=== PATIENT | female | born 1935 | race Caucasian/White ===

== ENCOUNTER → 2019-04-14 15:45 | Inpatient (IN) ==
[2017-11-14 13:09] LABS: BASO# 0.02 X1000 (0.0-0.2); BASO% 0.2 % (0.0-0.8); EOS# 0.03 X1000 (0.0-0.7); EOS% 0.3 % (0.0-10.0); HEMATOCRIT 38.3 % (37.0-47.0); HEMOGLOBIN 12.6 g/dL (12.0-16.0); IMM GRAN# 0.06 X1000 (0.0-0.04); IMM GRAN% 0.7 % (0.0-0.5); LYMPH# 1.15 X1000 (1.2-3.4); LYMPH% 13.2 % (20.5-51.1); MCH 28.4 PG (27-31); MCHC 32.9 g/dL (33-37); MCV 86.5 FL (81-99); MONO# 0.78 X1000 (0.11-0.59); MONO% 8.9 % (1.7-9.3); MPV 12.7 FL (7.4-10.4); NEUT# 6.69 X1000 (1.4-6.5); NEUT% 76.7 % (42.2-75.2); PLT 250 X1000 (130-400); RBC 4.43 XMIL (4.2-5.4); RDW 13.5 % (11.5-14.5); WBC 8.73 X1000 (4.8-10.8)
[2017-11-14 13:12] LABS: ALBUMIN 3.3 g/dL (3.5-5.0); CALCIUM 8.4 mg/dL (8.8-10.2); CREATININE 0.9 mg/dL (0.5-0.9); MAGNESIUM 2.3 mg/dL (1.5-2.7); POTASSIUM 2.8 mmol/L (3.5-5.1); TOTAL BILIRUBIN 0.4 mg/dL (0.20-1.00)
[2017-11-14 13:36] LABS: FREE T4 0.96 ng/dL (0.93-1.70); TSH 2.23 uIUmL (0.27-4.20)
--- NOTE | 2017-11-14 14:02 | Diag Imaging Result Doc PS360 ---
EXAM: CT HEAD W/O CONTRAST HISTORY: psych TECHNIQUE: Images were obtained from the skull base to vertex without IV contrast as per standard protocol. COMPARISON: None. FINDINGS: There are left craniotomy changes and left occipital/temporal craniectomy/mastoidectomy. There is left temporal, occipital and left cerebellar encephalomalacia. There is no midline shift. There is diffuse deep white matter hypodensity most consistent with microvascular disease. No acute hemorrhage is demonstrated. Hypodensity left thalamus and left internal capsule bilaterals is consistent with lacunar infarcts of undetermined age. There is extensive left dural calcifications. There are vascular calcifications. There is mucous retention cyst or polyp right maxillary sinus. IMPRESSION: 1.Postsurgical changes left cranium with associated encephalomalacia as described above. 2.Deep white matter hypodensity likely secondary to microvascular disease. 3. Lacunar infarcts of undetermined age. This exam was performed using automated exposure control, adjustment of mA or kV according to patient size, and/or use of iterative reconstruction technique. Electronically signed by Ania Peraza 11/14/2017 2:00 PM
--- NOTE | 2017-11-14 14:13 | Diag Imaging Result Doc PS360 ---
EXAM: CHEST-2 VIEWS HISTORY: psych TECHNIQUE: PA and Lateral chest x-ray COMPARISON: None. FINDINGS: There is cardiomegaly. There is [employer] shunt shunt tubing traversing the anterior chest. The pulmonary vasculature is not congested. No focal infiltrate, effusion, or pneumothorax is appreciated. There are mildly increased interstitial markings at the bases which may indicate fibrosis. IMPRESSION: No acute cardiopulmonary abnormality is identified. 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 Electronically signed by Ania Peraza 11/14/2017 2:11 PM
[2017-11-14 14:30] LABS: UR AMPHETAMINES QUAL NONE DETECTED (NONE DETECT); UR BARBITUATES QUAL NONE DETECTED (NONE DETECT); UR BENZODIAZEPIN QUAL NONE DETECTED (NONE DETECT); UR CANNABINOIDS QUAL NONE DETECTED (NONE DETECT); UR COCAINE QUAL NONE DETECTED (NONE DETECT); UR MDMA QUAL NONE DETECTED (NONE DETECT); UR METHADONE QUAL NONE DETECTED (NONE DETECT); UR METHAMPHETAMINE QUAL NONE DETECTED (NONE DETECT); UR OPIATES QUAL PRESUMPTIVE POSITIVE (NONE DETECT); UR OXYCODONE QUAL NONE DETECTED (NONE DETECT); UR PCP QUAL NONE DETECTED (NONE DETECT); UR TCA QUAL NONE DETECTED (NONE DETECT)
[2017-11-14 14:43] LABS: BILIRUBIN URINE NEGATIVE (NEGATIVE); BLOOD URINE 1+ (NEGATIVE); CLARITY SLIGHTLY CLOUDY (CLEAR); COLOR YELLOW; KETONE URINE NEGATIVE (NEGATIVE); URINE CAST NONE SEEN /LPF; URINE CRYSTAL NONE SEEN /HPF; URINE SOURCE CATH; URINE YEAST NONE SEEN /HPF
[2017-11-14 14:44] LABS: LEUKOCYTES URINE 1+ (NEGATIVE); NITRITE URINE POSITIVE (NEGATIVE); PROTEIN URINE 1+(30 mg/dL) mg/dL (NEGATIVE); UROBILINOGEN URINE NORMAL
[2017-11-14 14:45] LABS: URINE BACTERIA NEGATIVE /HFP; URINE EPITHELIAL CELLS <10 /HPF (<10); URINE RBC <10 /HPF (<10)
--- NOTE | 2017-11-14 15:42 | EKG Report ---
Test Performed on : 11/14/2017 2:55:37 PM Test Reason : [facility] court medical clearance Blood Pressure : / mmHG Vent. Rate : 070 BPM Atrial Rate : 070 BPM P-R Int : 126 ms QRS Dur : 090 ms QT Int : 430 ms P-R-T Axes : 001 -38 109 degrees QTc Int : 464 ms Normal sinus rhythm. Left axis deviation Nonspecific ST and T wave abnormality Abnormal ECG No previous ECGs available Unconfirmed Result
--- NOTE | 2017-11-14 17:45 | PROVIDER DOCUMENTATION ---
This chart was entered by Emmanuel Padilla Scribe, acting as scribe for Duong Kearney MD. HPI-Psychological Disorder - General Source: EMS Unable to obtain history due to:: altered - History of Present Illness-Psych Onset/Duration: reports: unsure Timing: reports: still present, constant Severity: reports: moderate Situational problems related to:: reports: N/A Psychiatric Complaints: reports: agitated, altered mental status, anxiety, hostile, restlessness Patient arrived by:: EMS called by spouse/family Similar Symptoms Previously?: Yes Recently seen or treated by another doctor?: No <Duong Kearney - Last Filed: 11/14/17 17:45> <Melo Whitfield - Last Filed: 11/14/17 18:17> - General Chief Complaint: Psych Stated Complaint: PSYCH Time Seen by Provider: 11/14/17 12:35 Allergies/Adverse Reactions: Patient Allergies Allergy/AdvReac Type Severity Reaction Status Date / Time latex Allergy Unknown Verified 11/14/17 13:00 metformin Allergy Unknown Verified 11/14/17 13:00 Home Medications: Home Medication List Medication Instructions Recorded Confirmed Last Taken Type ATORVAstatin [Lipitor] 40 mg PO HS 11/14/17 11/14/17 Unknown History Amlodipine Besylate [Norvasc] 5 mg PO DAILY 11/14/17 11/14/17 Unknown History Aspirin 325 mg PO DAILY 11/14/17 11/14/17 Unknown History Donepezil [Aricept] 5 mg PO BID 11/14/17 11/14/17 Unknown History Hydrocodone/Acetaminophen [[place] 1 - 2 tab PO Q4H PRN PRN 11/14/17 11/14/17 Unknown History 5-325 Tablet] Insulin Aspart [Novolog] 6 units SQ TID 11/14/17 11/14/17 Unknown History Insulin Glargine [Lantus] 22 unit SQ DAILY 11/14/17 11/14/17 Unknown History Lorazepam [Ativan] 1 - 2 tab PO Q4H PRN PRN 11/14/17 11/14/17 Unknown History Losartan/Hydrochlorothiazide 1 tab PO DAILY 11/14/17 11/14/17 Unknown History [Losartan-Hctz 50-12.5 mg Tab] Metoprolol Tartrate 25 mg PO BID 11/14/17 11/14/17 Unknown History Quetiapine Fumarate 2 tab PO BID 11/14/17 11/14/17 Unknown History - History of Present Illness-Psych Nature of Presenting Problem: Patient is a 82 y/o female that presents to the emergency room via EMS for psychiatric evaluation. Patient is at a care facility in [facility]. She was sent in here after having increased in AMS, confusion, dementia, and being more combative with staff. Her PRN medications are no longer working and family wanted her to be evaluated by psych. (Emmanuel Padilla) Patient is a 82 y/o female that presents to the emergency room via EMS for psychiatric evaluation. Patient is at a care facility in [facility]. She was sent in here after having increased in AMS, confusion, dementia, and being more combative with staff. Her PRN medications are no longer working and family wanted her to be evaluated by psych. (Duong Kearney) Review of Systems - Adult - REVIEW OF SYSTEMS - ADULT ROS:: unobtainable per condition Constitutional: reports: no symptoms reported Eyes: reports: no symptoms reported Ears, Nose, Mouth & Throat: reports: no symptoms reported Cardiovascular: reports: no symptoms reported Respiratory: reports: no symptoms reported Gastrointestinal: reports: no symptoms reported Genitourinary: reports: no symptoms reported Musculoskeletal: reports: no symptoms reported Integumentary: reports: no symptoms reported Neurological: reports: no symptoms reported Psychiatric: reports: see HPI Endocrine: reports: no symptoms reported Hematologic/Lymphatic: reports: no symptoms reported Allergic/Immunologic: reports: no symptoms reported All Other Systems: Reviewed and Negative <Duong Kearney - Last Filed: 11/14/17 17:45> Past History - Adult - PAST MEDICAL HISTORY-ADULT Review of Records: reports: Old Records Reviewed, Nursing Assessment Review, Medications Reviewed Cardiovascular: reports: HTN, hyperlipidemia Genitourinary: reports: kidney disease Neurological: reports: CVA, dementia Endocrine/Immune: reports: Diabetes - PRIOR SURGERIES/PROCEDURES Surgical/Procedure History: reports: reviewed, not pertinent - IMMUNIZATION STATUS Childhood Immunizations: See Nurse Assessment Flu Vaccine: See Nurse Assessment - FAMILY HISTORY Family History: reviewed, not pertinent - SOCIAL HISTORY Smoking: non-smoker Living Situation: care facility <Duong Kearney - Last Filed: 11/14/17 17:45> Physical Exam-Psych Focus - Physical Exam-Psych Initial Vital Signs Reviewed: Yes Appearance: anxious, combative, impaired insight Neurological: agitated, anxious, disoriented x 3 Behavior/Eye Contact/Speech: belligerent, uncooperative Thoughts/Hallucinations: incoherent. negative: flight of ideas HENMT: normocephalic/atraumatic, moist mucous membranes, normal ENT inspection Neck: full range of motion, normal inspection Respiratory: lungs clear, normal breath sounds, no respiratory distress, no accessory muscle use Cardiovascular: normal peripheral pulses, regular rate, rhythm Abdominal Exam: normal bowel sounds, non tender, soft Extremity: no pedal edema, normal capillary refill Integumentary: normal color, warm/dry <Duong Kearney - Last Filed: 11/14/17 17:45> Progress - PLAN OF CARE/RESULTS Result Diagrams: 11/14/17 12:54 11/14/17 12:54 - EKG 1 Time of EKG reading by physician:: 14:55 EKG Read and Signed by:: Duong Kearney EKG Interpretation (*Must complete 3 of following elements*): Abnormal Rate: 70 Rhythm: NSR [place]: left QRS: normal GA Interval: normal ST Wave: non-specific ST changes - XRAY 1 XRAY Study: Chest Impression: Abnormal (No acute cardiopulmonary abnormality is identified. 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 2.Deep white matter hypodensity likely secondary to microvascular disease. 3. Lacunar infarcts of undetermined age.) <Duong Kearney - Last Filed: 11/14/17 17:45> - PLAN OF CARE/RESULTS Result Diagrams: 11/14/17 12:54 11/14/17 12:54 - CONSULTS/PCP/HOSPITALIST Notification #1 *Consult/PCP/Hospitalist*: Dr. Daley hospitalist Time Discussed: 18:10 Consult Disposition: Admit <Melo Whitfield - Last Filed: 11/14/17 18:17> - PLAN OF CARE/RESULTS Progress/Plan/Lab Results: Vital Signs - 8 hr 11/14/17 12:36 11/14/17 18:09 Pulse Rate 66 71 Respiratory Rate 20 Blood Pressure 142/90 163/73 O2 Sat by Pulse Oximetry 97 96 Laboratory Results - last 24 hr 11/14/17 11/14/17 11/14/17 12:54 12:54 12:54 WBC RBC Hgb Hct MCV MCH MCHC RDW Std Deviation Plt Count MPV Immature Gran % (Auto) Neut % (Auto) Lymph % (Auto) [place] % (Auto) Eos % (Auto) Baso % (Auto) Immature Gran # (Auto) Neut # (Auto) Lymph # (Auto) [place] # (Auto) Eos # (Auto) Baso # (Auto) Sodium 140 Potassium 2.8 L Chloride 99 Carbon Dioxide 31 Anion Gap 10 BUN 23 H Creatinine 0.9 Estimated GFR/1.73 m2 60 BUN/Creatinine Ratio 26 Glucose 247 H Calculated Osmolality 291 Calcium 8.4 L Magnesium 2.3 Total Bilirubin 0.40 AST 200 H ALT 203 H Alkaline Phosphatase 171 H Total Protein 6.0 L Albumin 3.3 L Globulin 3.0 Albumin/Globulin Ratio 1.0 Vitamin B12 > 2000 H Folate 13.8 TSH 2.23 Free T4 0.96 Urine Source Urine Color Urine Clarity Urine pH Ur Specific [place] Urine Protein Urine Ketones Urine Blood Urine Nitrite Urine Bilirubin Urine Urobilinogen Urine Microscopic RBC Urine WBC Urine Microscopic WBC Ur Epithelial Cells Urine Crystals Urine Bacteria Urine Casts Urine Yeast Urine Glucose Urine Opiates Screen Ur Oxycodone Screen Urine Methadone Screen Ur Barbituates Screen Ur Tricyclics Screen Ur Phencyclidine Scrn Ur Amphetamines Screen U Methamphetamines Scrn Urine MDMA Screen U Benzodiazepines Scrn Urine Cocaine Screen U Cannabinoids Screen RPR 11/14/17 11/14/17 11/14/17 12:54 12:54 13:50 WBC 8.73 RBC 4.43 Hgb 12.6 Hct 38.3 MCV 86.5 MCH 28.4 MCHC 32.9 L RDW Std Deviation 13.5 Plt Count 250 MPV 12.7 H Immature Gran % (Auto) 0.7 H Neut % (Auto) 76.7 H Lymph % (Auto) 13.2 L [place] % (Auto) 8.9 Eos % (Auto) 0.3 Baso % (Auto) 0.2 Immature Gran # (Auto) 0.06 H Neut # (Auto) 6.69 H Lymph # (Auto) 1.15 L [place] # (Auto) 0.78 H Eos # (Auto) 0.03 Baso # (Auto) 0.02 Sodium Potassium Chloride Carbon Dioxide Anion Gap BUN Creatinine Estimated GFR/1.73 m2 BUN/Creatinine Ratio Glucose Calculated Osmolality Calcium Magnesium Total Bilirubin AST ALT Alkaline Phosphatase Total Protein Albumin Globulin Albumin/Globulin Ratio Vitamin B12 Folate TSH Free T4 Urine Source CATH Urine Color YELLOW Urine Clarity SLIGHTLY CLOUDY A Urine pH 7.0 Ur Specific [place] 1.010 Urine Protein 1+(30 mg/dL) A Urine Ketones NEGATIVE Urine Blood 1+ A Urine Nitrite POSITIVE A Urine Bilirubin NEGATIVE Urine Urobilinogen NORMAL Urine Microscopic RBC <10 Urine WBC 1+ A Urine Microscopic WBC 10-20 A Ur Epithelial Cells <10 Urine Crystals NONE SEEN Urine Bacteria NEGATIVE Urine Casts NONE SEEN Urine Yeast NONE SEEN Urine Glucose 2+(250 mg/dL) A Urine Opiates Screen Ur Oxycodone Screen Urine Methadone Screen Ur Barbituates Screen Ur Tricyclics Screen Ur Phencyclidine Scrn Ur Amphetamines Screen U Methamphetamines Scrn Urine MDMA Screen U Benzodiazepines Scrn Urine Cocaine Screen U Cannabinoids Screen RPR NON-REACTIVE 11/14/17 14:20 WBC RBC Hgb Hct MCV MCH MCHC RDW Std Deviation Plt Count MPV Immature Gran % (Auto) Neut % (Auto) Lymph % (Auto) [place] % (Auto) Eos % (Auto) Baso % (Auto) Immature Gran # (Auto) Neut # (Auto) Lymph # (Auto) [place] # (Auto) Eos # (Auto) Baso # (Auto) Sodium Potassium Chloride Carbon Dioxide Anion Gap BUN Creatinine Estimated GFR/1.73 m2 BUN/Creatinine Ratio Glucose Calculated Osmolality Calcium Magnesium Total Bilirubin AST ALT Alkaline Phosphatase Total Protein Albumin Globulin Albumin/Globulin Ratio Vitamin B12 Folate TSH Free T4 Urine Source Urine Color Urine Clarity Urine pH Ur Specific [place] Urine Protein Urine Ketones Urine Blood Urine Nitrite Urine Bilirubin Urine Urobilinogen Urine Microscopic RBC Urine WBC Urine Microscopic WBC Ur Epithelial Cells Urine Crystals Urine Bacteria Urine Casts Urine Yeast Urine Glucose Urine Opiates Screen PRESUMPTIVE POSITIVE A Ur Oxycodone Screen NONE DETECTED Urine Methadone Screen NONE DETECTED Ur Barbituates Screen NONE DETECTED Ur Tricyclics Screen NONE DETECTED Ur Phencyclidine Scrn NONE DETECTED Ur Amphetamines Screen NONE DETECTED U Methamphetamines Scrn NONE DETECTED Urine MDMA Screen NONE DETECTED U Benzodiazepines Scrn NONE DETECTED Urine Cocaine Screen NONE DETECTED U Cannabinoids Screen NONE DETECTED RPR Orders Category Date Time Status Finger Splint DIRECTED Care 11/14/17 16:55 Inactive Finger Stick Blood Sugar (ED) DIRECTED Care 11/14/17 16:56 Active Straight Catheterization ORDERED Care 11/14/17 13:07 Active CHEST-2 VIEWS [RAD] Stat Exams 11/14/17 12:[address] HEAD W/O CONTRAST [CT] Stat Exams 11/14/17 12:43 Completed US ABDOMEN-COMPLETE [US] Stat Exams 11/14/17 17:25 Ordered CBC WITH ELECTRONIC DIFF [HEME] Stat Lab 11/14/17 12:54 Completed COMPREHENSIVE METABOLIC PANEL [CHEM] Stat Lab 11/14/17 12:54 Completed FOLATE Stat Lab 11/14/17 12:54 Completed FREE T4 Stat Lab 11/14/17 12:54 Completed MAGNESIUM [CHEM] Stat Lab 11/14/17 12:54 Completed RPR [SERO] Stat Lab 11/14/17 12:54 Completed TSH Stat Lab 11/14/17 12:[address] W/POSS RFLX CULT [URINALYSIS] Stat Lab 11/14/17 13:50 Completed URINE CULTURE [RM] Routine Lab 11/14/17 14:45 Received [address] DRUG SCREEN [address] Stat Lab 11/14/17 14:20 Completed VITAMIN B12 Stat Lab 11/14/17 12:54 Completed CefTRIAXONE [Rocephin] 1 gm Med 11/14/17 18:07 Active 0.9% Sodium Chloride Inj [Ns] 50 ml IV NOW Lorazepam [Ativan] Med 11/14/17 17:36 Discontinued 2 mg .ROUTE .STK-MED ONE Lorazepam [Ativan] Med 11/14/17 17:38 Discontinued 2 mg IM NOW ONE Potassium Chloride E.r. [Klor-Con] Med 11/14/17 15:36 Discontinued 40 meq PO NOW ONE Potassium Chloride E.r. [Klor-Con] Med 11/14/17 22:00 Once 40 meq PO NOW ONE Sulfamethoxazole/Tmp D.s. [Septra Ds] Med 11/14/17 15:39 Discontinued 1 each PO NOW ONE EKG [EKG] Stat Ther 11/14/17 12:39 Draft patient evaluated by psych who decline her for psych admission (Melo Whitfield) Departure <Duong Kearney - Last Filed: 11/14/17 17:45> - Departure Date of Disposition Decision: 11/14/17 Time of Disposition Decision: 18:10 Certified Medical Emergency: Emergent - Critical Care Note This patient required my direct & personal management of CC.: No <Melo Whitfield - Last Filed: 11/14/17 18:17> - Departure DIAGNOSIS: Agitation, Hypokalemia Altered mental status Qualifiers: Altered mental status type: unspecified Qualified Code(s): R41.82 - Altered mental status, unspecified UTI (urinary tract infection) Qualifiers: Urinary tract infection type: site unspecified Hematuria presence: without hematuria Qualified Code(s): N39.0 - Urinary tract infection, site not specified Disposition: ADMITTED INPATIENT 09 Condition: Stable Referrals and Follow-Ups: None,PCP [Primary Care Provider] - Attestation - Physician/ AGUILAR Attestation Patient care was provided by Advanced Practice Provider:: No The physician spent face to face time with patient:: Yes Advanced Practice Provider documentation review:: Supervising physician onsite and consulted in the evaluation and care of this patient. The physician did have a face to face encounter with the patient. <Duong Kearney - Last Filed: 11/14/17 17:45> This chart was documented by the indicated scribe, (Emmanuel Padilla, Scribe) and accurately reflects the services I performed and decisions made by me, Duong Kearney MD, as attested by the provider's signature.
[2017-11-14] MEDS: LOVENOX SUBQ SCH (18:59)
--- NOTE | 2017-11-14 19:03 | Diag Imaging Result Doc PS360 ---
EXAM: US ABDOMEN-COMPLETE 11/14/2017 HISTORY: elevated lfts TECHNIQUE: Abdominal ultrasound COMMENT: There is antegrade flow in the portal vein. The common bile duct measures slightly over 7 mm. The gallbladder is not demonstrated. There is no sonographic Vazquez sign. The spleen is not enlarged. The liver is grossly normal in appearance although there is very poor detail particularly in the deeper portions. The visualized portions of aorta and inferior vena cava are within normal limits. There is a 9 mm stone in the lower pole of the left collecting system. There is a 1.9 cm cyst in the upper pole of the left kidney. The right kidney is somewhat atrophic measuring only 7.9 x 4 x 3.7 cm. There are no previous studies. The pancreas is obscured. IMPRESSION: Left nephrolithiasis. Borderline dilatation the common bile duct. If the gallbladder is surgically absent, this is probably physiologic. Electronically signed by Jona Woo 11/14/2017 7:00 PM
--- NOTE | 2017-11-14 19:57 | HISTORY AND PHYSICAL ---
CHIEF COMPLAINT: Altered mental status. HISTORY OF PRESENT ILLNESS: The patient is an 82-year-old female, who was brought to the emergency department via the ambulance. The family did not come with her. They reported that she has been agitated. She has been anxious, hostile, restless. They deny any knowledge of fevers. ALLERGIES: Latex and metformin. MEDICATIONS: 1. Lipitor 40. 2. Norvasc 5. 3. Aspirin. 4. Aricept. 5. Homeland p.r.n. 6. NovoLog 6 t.i.d. 7. Lantus 22. 8. Ativan p.r.n. 9. Hyzaar 50/12.5. 10. Toprol 25. 11. Seroquel 2 twice a day. REVIEW OF SYSTEMS: Essentially unobtainable from Ms. Bajwa given her chronic dementia and her acute altered mental status. She apparently was brought to the hospital to be evaluated for her psychiatric change. She was in a care facility in [facility], but is no longer able to stay there due to increasing altered mental status, confusion and dementia. She has become more combative with the staff. She has been kicking and swinging at them. She has spit on them. They note her medications are no longer working. No knowledge of GI or issues. No knowledge of chest pain. No subjective knowledge of shortness of breath. PAST MEDICAL HISTORY: 1. Hypertension. 2. Hyperlipidemia. 3. Chronic kidney disease. 4. History of CVA. 5. Dementia. 6. Diabetes. FAMILY HISTORY: Noncontributory to current illness. SOCIAL HISTORY: She lives in a long-term care facility. Does not smoke or drink. PHYSICAL EXAMINATION: VITAL SIGNS: Reviewed. She is afebrile, pulse 66, respiratory rate 20, blood pressure 142/90, saturation 97% on room air. GENERAL: Patient is awake and alert. She is currently in no respiratory distress. Unfortunately, she is also combative. NECK: Supple. CARDIOVASCULAR: Regular rate. CHEST: Clear. No crackles. ABDOMEN: Soft. EXTREMITIES: Moves all 4 extremities. LABORATORY DATA: CBC normal. Potassium 2.8. Glucose 247. ASSESSMENT: 1. Urinary tract infection. 2. Hypokalemia. 3. Diabetes with hyperglycemia. 4. Acute delirium, likely metabolic encephalopathy caused by urinary tract infection. 5. Acute hepatitis. AST and ALT both elevated. PLAN: Will admit patient to the hospital. Will not start an IV currently as she does not appear to be volume-depleted and I certainly do not expect that she will keep an IV in place. We will attempt to use IM Rocephin and oral medications as much as possible. cc: Ricky Daley MD
[2017-11-14] MEDS: SEROQUEL PO SCH (23:18)
[2017-11-14] MEDS: ARICEPT PO SCH (23:18)
[2017-11-15 07:13] LABS: HEMATOCRIT 41.5 % (37.0-47.0); HEMOGLOBIN 13.6 g/dL (12.0-16.0); MCH 28.3 PG (27-31); MCHC 32.8 g/dL (33-37); MCV 86.5 FL (81-99); MPV 12.2 FL (7.4-10.4); RBC 4.8 XMIL (4.2-5.4); RDW 13.9 % (11.5-14.5); WBC 6.58 X1000 (4.8-10.8)
[2017-11-15 08:01] LABS: ALBUMIN 3.3 g/dL (3.5-5.0); CALCIUM 8.5 mg/dL (8.8-10.2); CREATININE 0.9 mg/dL (0.5-0.9); MAGNESIUM 2.3 mg/dL (1.5-2.7); POTASSIUM 3.4 mmol/L (3.5-5.1); TOTAL BILIRUBIN 0.4 mg/dL (0.20-1.00); TOTAL PROTEIN 6.2 g/dL (6.3-8.3)
[2017-11-15] MEDS: ARICEPT PO SCH ×2 (09:30→21:56)
[2017-11-15] MEDS: ATIVAN PO PRN (09:30)
[2017-11-15] MEDS: SEROQUEL PO SCH ×2 (09:31→21:56)
[2017-11-15] MEDS: HUMALOG DOSE (PARKWAY) SUBQ SCH ×3 (12:31→21:56)
[2017-11-15] MEDS: LOVENOX SUBQ SCH (17:31)
--- NOTE | 2017-11-15 19:37 | PROGRESS NOTE ---
DATE: 11/15/2017 SUBJECTIVE: Patient without any new complaints today. She is much more alert and awake. PHYSICAL: Temperature 97.8 degrees, pulse 61, respiratory 20, BP 147/74.General: Patient is awake, alert. Currently, she is in no respiratory distress. She is confused, disoriented but very calm and pleasant. HEENT: Normocephalic. Neck: Supple. No JVD. CARDIOVASCULAR: Regular rate. Chest: Clear. Abdomen: Soft, nondistended. Extremities: Moves all extremities. ASSESSMENT: 1. Urinary tract infection. Continue Rocephin. We will continue to use IM as she is pulling her IVs out almost instantaneously. 2. Hypokalemia. 3. Diabetes with hyperglycemia. 4. Acute delirium, likely metabolic encephalopathy secondary to urinary tract infection. It is improving currently. 5. Acute hepatitis, also improving. PLAN: As noted, continue Rocephin. Continue to try to encourage oral intake. Further orders as needed. cc: Ricky Daley MD
[2017-11-15] MEDS: HALDOL IM PRN (22:41)
[2017-11-16] MEDS: ATIVAN PO PRN ×2 (05:48→21:14)
[2017-11-16] MEDS: HUMALOG DOSE (PARKWAY) SUBQ SCH ×4 (06:36→21:14)
[2017-11-16 07:09] LABS: MCH 28.7 PG (27-31); MCHC 32.5 g/dL (33-37); MCV 88.3 FL (81-99); MPV 12.2 FL (7.4-10.4); RBC 4.53 XMIL (4.2-5.4); RDW 14.2 % (11.5-14.5); WBC 7.74 X1000 (4.8-10.8)
[2017-11-16 07:33] LABS: AGAP 11; ALBUMIN 2.9 g/dL (3.5-5.0); ALKALINE PHOSPHATASE 138 U/L (32-104); BUN 13 mg/dL (8-22); CALCIUM 8.4 mg/dL (8.8-10.2); CHLORIDE 106 mmol/L (98-107); COSMO 283; CREATININE 0.8 mg/dL (0.5-0.9); ESTIMATED GFR > 60; GLUCOSE 157 mg/dL (70-104); GOT 36 U/L (10-30); GPT 93 U/L (10-36); POTASSIUM 4.6 mmol/L (3.5-5.1); SODIUM 140 mmol/L (136-145); TCO2 23 mmol/L (25-35); TOTAL PROTEIN 5.8 g/dL (6.3-8.3)
[2017-11-16] MEDS: SEROQUEL PO SCH ×2 (09:29→21:14)
[2017-11-16] MEDS: ARICEPT PO SCH ×2 (09:29→21:13)
[2017-11-16] MEDS: LOVENOX SUBQ SCH (17:26)
--- NOTE | 2017-11-16 19:08 | PROGRESS NOTE ---
DATE: 11/16/2017 SUBJECTIVE: The patient is a little more alert today. She denies any complaints. She is still confused. PHYSICAL: Temperature 97.8 degrees, pulse 61, respiratory 22, BP 147/74.General: Patient is awake and alert. She is confused although she is much more alert today than she was yesterday. She is in no current distress. HEENT: Normocephalic. Neck: Supple. No JVD. CV: Regular rate. Chest: Clear. Abdomen: Soft. Extremities: She is noted to move all extremities. ASSESSMENT: 1. Urinary tract infection. Continue Rocephin IM. 2. Metabolic encephalopathy secondary to urinary tract infection, improving. 3. Acute hepatitis. Her AST, ALT and alkaline phosphatase all are improving. Currently AST is down from 236 and ALT is down from 203 to 93. 4. Hypokalemia resolved. 5. Diabetes. 6. Chronic dementia. PLAN: Continue to push fluids. Continue Rocephin IM. Continue to follow. Hopefully she can improve and likely will need to be transitioned to rehab. cc: Ricky Daley MD
[2017-11-17] MEDS: HUMALOG DOSE (PARKWAY) SUBQ SCH ×4 (06:21→21:12)
[2017-11-17] MEDS: ARICEPT PO SCH ×2 (09:19→21:03)
[2017-11-17] MEDS: SEROQUEL PO SCH ×2 (09:19→21:12)
[2017-11-17] MEDS: ATIVAN PO PRN ×2 (10:34→21:12)
[2017-11-17] MEDS: LOVENOX SUBQ SCH (18:02)
--- NOTE | 2017-11-17 19:34 | PROGRESS NOTE ---
DATE: 11/17/2017 SUBJECTIVE: The patient has no complaints. There is no family present. OBJECTIVE: Vital Signs: Temperature 97.6 degrees, pulse 72, respiratory rate 18, blood pressure 150/69. General: Patient is awake. She is much more alert. She is more pleasant. She is not as combative as she was previously. HEENT: Normocephalic. Neck: Supple. CARDIOVASCULAR: Regular rate. Chest: Clear. Abdomen: Soft. Extremities: Moves all extremities. She is still currently in restraints due to the probability that she will harm herself or that she will harm one of the staff. She also is still climbing out of bed and certainly will would be expected to fall if she is able to get out of bed. ASSESSMENT: 1. Urinary tract infection. Culture still pending. 2. Hypokalemia. 3. Diabetes. 4. Acute delirium. 5. Acute hepatitis, resolved. PLAN: Overall, the patient is improving. She certainly may be to her baseline mental status at this point. We will continue antibiotics today. Hopefully transition to rehab in the next day or two. cc: Ricky Daley MD
[2017-11-18] MEDS: HUMALOG DOSE (PARKWAY) SUBQ SCH ×4 (06:42→21:48)
[2017-11-18] MEDS: SEROQUEL PO SCH ×2 (09:14→20:33)
[2017-11-18] MEDS: ARICEPT PO SCH ×2 (09:14→20:33)
[2017-11-18] MEDS: ATIVAN PO PRN (11:28)
[2017-11-18] MEDS: HALDOL IM PRN (14:57)
[2017-11-18] MEDS: LOVENOX SUBQ SCH (18:11)
--- NOTE | 2017-11-18 20:59 | PROGRESS NOTE ---
DATE: 11/18/2017 SUBJECTIVE: Patient is a little more awake and alert this morning. Still confused and disoriented. Does not answer questions nor follow commands. PHYSICAL: Temperature 98.7, pulse 79, respiratory rate 22, BP 140/69.General: Patient is awake and alert. She does not follow commands. She is more calm. HEENT: Normocephalic, atraumatic. Neck: Supple. CARDIOVASCULAR: Regular rate. Chest: Clear. Abdomen: Soft, nondistended. Extremities: Moves all extremities. ASSESSMENT: 1. Urinary tract infection. Continue Rocephin. 2. Acute hepatitis, improving. 3. Acute delirium secondary to urinary tract infection. Appears to be improved. 4. Chronic dementia. 5. Diabetes. 6. Hypokalemia, resolved. PLAN: We will continue patient in the hospital. Begin looking for discharge planning. cc: Ricky Daley MD
[2017-11-19] MEDS: ASPIRIN PO SCH (08:23)
[2017-11-19] MEDS: ATIVAN PO PRN (08:23)
[2017-11-19] MEDS: SEROQUEL PO SCH ×2 (08:23→21:44)
[2017-11-19] MEDS: ARICEPT PO SCH ×2 (08:23→21:44)
[2017-11-19] MEDS: COZAAR PO SCH (08:24)
[2017-11-19] MEDS: BASAGLAR SUBQ SCH (09:42)
[2017-11-19] MEDS: HUMALOG DOSE (PARKWAY) SUBQ SCH ×4 (11:05→23:18)
[2017-11-19] MEDS: HALDOL IM PRN (11:30)
[2017-11-19 12:26] LABS: BASO# 0.01 X1000 (0.0-0.2); BASO% 0.1 % (0.0-0.8); EOS# 0.05 X1000 (0.0-0.7); EOS% 0.6 % (0.0-10.0); HEMATOCRIT 38.2 % (37.0-47.0); HEMOGLOBIN 12.5 g/dL (12.0-16.0); IMM GRAN# 0.03 X1000 (0.0-0.04); IMM GRAN% 0.4 % (0.0-0.5); LYMPH# 1.67 X1000 (1.2-3.4); LYMPH% 21.6 % (20.5-51.1); MCH 28.6 PG (27-31); MCHC 32.7 g/dL (33-37); MCV 87.4 FL (81-99); MONO# 0.48 X1000 (0.11-0.59); MONO% 6.2 % (1.7-9.3); MPV 11.7 FL (7.4-10.4); NEUT% 71.1 % (42.2-75.2); PLT 252 X1000 (130-400); RBC 4.37 XMIL (4.2-5.4); RDW 13.9 % (11.5-14.5); WBC 7.74 X1000 (4.8-10.8)
[2017-11-19 12:39] LABS: AGAP 12; BUN 12 mg/dL (8-22); CALCIUM 8.9 mg/dL (8.8-10.2); CHLORIDE 101 mmol/L (98-107); COSMO 286; CREATININE 0.8 mg/dL (0.5-0.9); ESTIMATED GFR > 60; GLUCOSE 222 mg/dL (70-104); POTASSIUM 3.9 mmol/L (3.5-5.1); SODIUM 140 mmol/L (136-145); TCO2 26 mmol/L (25-35)
[2017-11-19] MEDS: CALMOSEPTINE OINTMENT TOP PRN (16:36)
[2017-11-19] MEDS: LOVENOX SUBQ SCH (18:52)
--- NOTE | 2017-11-19 20:17 | PROGRESS NOTE ---
DATE: 11/19/2017 SUBJECTIVE: Patient is much more calm today. OBJECTIVE: Vital Signs: Temperature 98.7, pulse 79, respiratory 20, BP 140/69. General: Patient is awake, alert, currently in no distress. HEENT: Normocephalic. Neck: Supple. Cardiovascular: Regular rate. Chest: Clear. Abdomen: Soft. Extremities: Moves all extremities. Neurologic: Unable to assess due to patient's dementia. ASSESSMENT: 1. Hypertension. 2. Urinary tract infection. Will continue Rocephin today and will stop. 3. Hypokalemia, resolved. We will recheck labs in the a.m. 4. Acute hepatitis. Continues to improve. 5. Chronic dementia. PLAN: Overall, patient's mental status has improved. She is much more calm. We will continue to follow. Hopefully she can be transferred to rehab soon. Unfortunately, we are awaiting on insurance approval. cc: Ricky Daley MD
[2017-11-19] MEDS: LIPITOR PO SCH (21:44)
[2017-11-20] MEDS: ATIVAN PO PRN ×2 (00:45→11:21)
[2017-11-20] MEDS: HUMALOG DOSE (PARKWAY) SUBQ SCH ×4 (06:23→23:26)
[2017-11-20] MEDS: ARICEPT PO SCH ×2 (08:57→23:27)
[2017-11-20] MEDS: BASAGLAR SUBQ SCH (08:57)
[2017-11-20] MEDS: SEROQUEL PO SCH ×2 (08:57→23:27)
[2017-11-20] MEDS: COZAAR PO SCH (08:57)
[2017-11-20] MEDS: ASPIRIN PO SCH (08:57)
[2017-11-20] MEDS: HALDOL IM PRN (13:56)
[2017-11-20] MEDS: LOVENOX SUBQ SCH (19:23)
--- NOTE | 2017-11-20 20:38 | PROGRESS NOTE ---
DATE: 11/20/2017 SUBJECTIVE: The patient has no new complaints. She is calm. OBJECTIVE: Vital Signs: Temperature 97.7 degrees, pulse 63, respiratory rate 20, BP 139/70. General: The patient is awake. She is in no respiratory distress. HEENT: Normocephalic. Neck: Supple. CARDIOVASCULAR: Regular rate. No murmurs. Chest: Clear, nonlabored. Abdomen: Soft, nondistended. Extremities: Moves all extremities. ASSESSMENT: 1. Hypokalemia, resolved. 2. Acute delirium in the setting of chronic dementia, appears improved. 3. Hypertension. 4. Hepatitis, improving. PLAN: Will continue to follow. Recheck labs in the a.m. Will attempt to stop all of her restraints if possible and will follow. cc: Ricky Daley MD
[2017-11-20] MEDS: LIPITOR PO SCH (23:26)
[2017-11-21] MEDS: HUMALOG DOSE (PARKWAY) SUBQ SCH ×3 (07:01→17:57)
[2017-11-21] MEDS: ARICEPT PO SCH ×2 (10:29→22:12)
[2017-11-21] MEDS: BASAGLAR SUBQ SCH (10:29)
[2017-11-21] MEDS: ASPIRIN PO SCH (10:29)
[2017-11-21] MEDS: SEROQUEL PO SCH ×2 (10:30→22:12)
[2017-11-21] MEDS: COZAAR PO SCH (10:30)
[2017-11-21] MEDS: ATIVAN PO PRN (13:30)
[2017-11-21] MEDS: LOVENOX SUBQ SCH (18:03)
--- NOTE | 2017-11-21 18:34 | PROGRESS NOTE ---
DATE: 11/21/2017 SUBJECTIVE: The patient has no complaints. She is pleasant. She spoke to me this morning. OBJECTIVE: Vital Signs: Temperature 98.4, pulse 71, respiratory rate 18, blood pressure 138/68. General: Patient is awake, alert. She is currently in no distress. She is very pleasant. HEENT: Normocephalic. Neck: Supple. CARDIOVASCULAR: Regular rate. Chest: Clear. Abdomen: Soft. Neurologic: No focal changes from previous exams. The patient is awake, alert, but she is disoriented to person, place, and time. She does answer questions, but not always the appropriate question. ASSESSMENT: 1. Urinary tract infection, resolved. 2. Hypokalemia, resolved. 3. Acute hepatitis, resolved. 4. Volume depletion, resolved. 5. Diabetes. 6. Chronic dementia. 7. Metabolic encephalopathy secondary to urinary tract infection and volume depletion, resolved. PLAN: The patient certainly needs transition to rehab although her insurance currently is refusing. She is incapable of caring for herself at home. We will continue to remove restraints as much as possible. However, she gets confused and attempts to get out of bed. She currently is too weak to get out of bed on her own. cc: Ricky Daley MD
[2017-11-21] MEDS: LIPITOR PO SCH (22:12)
[2017-11-22] MEDS: HUMALOG DOSE (PARKWAY) SUBQ SCH ×4 (00:18→16:45)
[2017-11-22 05:35] LABS: HEMATOCRIT 35.5 % (37.0-47.0); HEMOGLOBIN 11.3 g/dL (12.0-16.0); MCH 28.4 PG (27-31); MCHC 31.8 g/dL (33-37); MCV 89.2 FL (81-99); MPV 11.8 FL (7.4-10.4); RBC 3.98 XMIL (4.2-5.4); RDW 14.2 % (11.5-14.5); WBC 11.74 X1000 (4.8-10.8)
[2017-11-22 05:54] LABS: AGAP 7; ALBUMIN 2.8 g/dL (3.5-5.0); ALKALINE PHOSPHATASE 98 U/L (32-104); BUN 14 mg/dL (8-22); CALCIUM 8.4 mg/dL (8.8-10.2); CHLORIDE 106 mmol/L (98-107); COSMO 282; CREATININE 0.7 mg/dL (0.5-0.9); ESTIMATED GFR > 60; GLUCOSE 63 mg/dL (70-104); GOT 23 U/L (10-30); GPT 37 U/L (10-36); POTASSIUM 3.8 mmol/L (3.5-5.1); SODIUM 142 mmol/L (136-145); TCO2 29 mmol/L (25-35); TOTAL PROTEIN 5.4 g/dL (6.3-8.3)
[2017-11-22] MEDS: COZAAR PO SCH (10:16)
[2017-11-22] MEDS: ASPIRIN PO SCH (10:16)
[2017-11-22] MEDS: SEROQUEL PO SCH ×2 (10:16→21:38)
[2017-11-22] MEDS: ARICEPT PO SCH ×2 (10:16→21:38)
[2017-11-22] MEDS: BASAGLAR SUBQ SCH (10:16)
--- NOTE | 2017-11-22 16:44 | PROGRESS NOTE ---
DATE: 11/22/2017 SUBJECTIVE: Patient is pleasant at the moment however she is certainly a fall risk, does not understand that she needs to stay in bed until she gets help getting up. Therefore she is still requiring soft restraints at times to prevent personal injury. PHYSICAL: Temperature 97.7 degrees, pulse 76, respiratory 16, BP 132/54.General: Patient is awake, she is very pleasant this morning. HEENT: Normocephalic. Neck: Supple. CV: Regular rate. Chest: Clear. Abdomen: Soft. Extremities: Moves all extremities. Neuro: Unable to assess due to her dementia. ASSESSMENT: 1. Hypertension, restart Cozaar. 2. Diabetes with hyperglycemia. 3. Acute hepatitis resolved. AST, ALT and alkaline phosphatase all back to normal. 4. Hypokalemia resolved. 5. Urinary tract infection resolved. 6. Acute delirium resolved. Patient is much more alert, oriented although she still easily confused, easily disoriented, still attempts to climb out of bed and fall. PLAN: We will continue to adjust her psychotropic medications to see if we can assist. Unfortunately, she will still need soft restraints at times to prevent personal injury. Continue to wait on her insurance to allow her to go to rehab. cc: Ricky Daley MD
[2017-11-22] MEDS: LOVENOX SUBQ SCH (17:15)
[2017-11-22] MEDS: LIPITOR PO SCH (21:38)
[2017-11-22] MEDS: ATIVAN PO PRN (23:03)
[2017-11-23] MEDS: HUMALOG DOSE (PARKWAY) SUBQ SCH ×5 (04:49→21:35)
[2017-11-23] MEDS: SEROQUEL PO SCH ×3 (10:34→21:34)
[2017-11-23] MEDS: ASPIRIN PO SCH ×2 (10:34→10:46)
[2017-11-23] MEDS: COZAAR PO SCH ×2 (10:34→10:47)
[2017-11-23] MEDS: BASAGLAR SUBQ SCH (10:34)
[2017-11-23] MEDS: ARICEPT PO SCH ×2 (10:45→21:34)
--- NOTE | 2017-11-23 17:11 | PROGRESS NOTE ---
DATE: 11/23/2017 SUBJECTIVE: The patient is very pleasant today. She had no complaints. PHYSICAL EXAM: Temp 97.6, pulse 72, respiratory rate 18, BP 172/72.General: Patient is awake. She is alert. She is pleasant. She is lying in the bed. She still has soft restraints due to the propensity for her to hurt herself by climbing out of bed. She is too weak to get out of bed unassisted, but unfortunately her dementia prevents her from realizing this. HEENT: Normocephalic. Neck: Supple. CARDIOVASCULAR: Regular rate. Chest: Clear. Abdomen: Soft. Extremities: Moves all extremities. ASSESSMENT: 1. Urinary tract infection resolved. 2. Hypokalemia resolved. 3. Diabetes with hyperglycemia stable. 4. Hypertension. Will increase Cozaar to 100. 5. Hepatitis resolved. PLAN: We will continue patient in the hospital. Continue to treat symptomatically and will continue to look for placement. cc: Ricky Daley MD
[2017-11-23] MEDS: LOVENOX SUBQ SCH (18:17)
[2017-11-23] MEDS: LIPITOR PO SCH (21:34)
[2017-11-24] MEDS: HALDOL IM PRN ×2 (02:56→13:05)
[2017-11-24] MEDS: COZAAR PO SCH (09:53)
[2017-11-24] MEDS: SEROQUEL PO SCH ×2 (09:53→22:56)
[2017-11-24] MEDS: BASAGLAR SUBQ SCH (09:53)
[2017-11-24] MEDS: ARICEPT PO SCH ×2 (09:53→22:57)
[2017-11-24] MEDS: ASPIRIN PO SCH (09:54)
[2017-11-24] MEDS: HUMALOG DOSE (PARKWAY) SUBQ SCH ×4 (09:54→22:57)
[2017-11-24] MEDS: ATIVAN PO PRN ×2 (13:05→22:57)
[2017-11-24] MEDS: LOVENOX SUBQ SCH (18:41)
--- NOTE | 2017-11-24 19:24 | PROGRESS NOTE ---
DATE: 11/24/2017 SUBJECTIVE: Patient is very calm although she refuses to stay in bed. PHYSICAL: Temperature 98.4 degrees, pulse 86, respiratory 16, BP 97/45.General: Patient is awake, alert, she is in no distress pleasant to talk with. She is calm at the present time. HEENT: Normocephalic. Neck: Supple. CARDIOVASCULAR: Regular rate. Chest: Clear. Abdomen: Soft. Extremities: Moves all extremities extremely well. ASSESSMENT: 1. Urinary tract infection resolved. 2. Hypokalemia resolved . 3. Hypertension stable although slightly elevated, will increase Cozaar to 100 . 4. Acute hepatitis resolved. 5. Chronic dementia certainly making her care problematic as she does not stay in the bed. We will continue her in the hospital. Unfortunately she will need more constant supervision to prevent her from getting out of bed. cc: Ricky Daley MD
[2017-11-24] MEDS: LIPITOR PO SCH (22:57)
[2017-11-25] MEDS: HUMALOG DOSE (PARKWAY) SUBQ SCH ×4 (06:27→21:30)
[2017-11-25] MEDS: COZAAR PO SCH (09:37)
[2017-11-25] MEDS: ARICEPT PO SCH ×2 (09:37→20:20)
[2017-11-25] MEDS: ASPIRIN PO SCH (09:37)
[2017-11-25] MEDS: SEROQUEL PO SCH ×2 (09:37→20:21)
[2017-11-25] MEDS: BASAGLAR SUBQ SCH (09:54)
[2017-11-25] MEDS: LOVENOX SUBQ SCH (18:38)
--- NOTE | 2017-11-25 20:02 | PROGRESS NOTE ---
DATE: 11/25/2017 SUBJECTIVE: The patient has no complaints. PHYSICAL EXAMINATION: Temperature 97.7, pulse 74, respiratory rate 18, BP 150/65.General: Patient is awake. She is in no distress. She is lying flat in the bed. Neck: Supple. CARDIOVASCULAR: Regular rate. Chest: Clear. Abdomen: Soft. Extremities: Moves all extremities. ASSESSMENT: 1. Hypertension, stable. 2. Urinary tract infection resolved. 3. Hypokalemia resolved. 4. Acute hepatitis resolved. 5. Diabetes with hyperglycemia. PLAN: Continue patient's home medications. Continue to follow. Hopefully to rehab soon. cc: Ricky Daley MD
[2017-11-25] MEDS: LIPITOR PO SCH (20:21)
[2017-11-25] MEDS: ATIVAN PO PRN (22:07)
[2017-11-26] MEDS: HUMALOG DOSE (PARKWAY) SUBQ SCH ×4 (06:20→22:01)
[2017-11-26] MEDS: BASAGLAR SUBQ SCH (09:31)
[2017-11-26] MEDS: ASPIRIN PO SCH (09:31)
[2017-11-26] MEDS: SEROQUEL PO SCH ×2 (09:31→21:53)
[2017-11-26] MEDS: ARICEPT PO SCH ×2 (09:31→21:53)
[2017-11-26] MEDS: COZAAR PO SCH (09:32)
[2017-11-26] MEDS: LOVENOX SUBQ SCH (18:17)
--- NOTE | 2017-11-26 21:11 | PROGRESS NOTE ---
DATE: 11/26/2017 SUBJECTIVE: Patient has no new complaints. She is quite vocal this morning. OBJECTIVE: Vital Signs: Temperature 98.4 degrees, pulse 82, respiratory rate 20, blood pressure 130/68. General: Patient is awake, alert, currently in no distress. She is lying flat in bed. HEENT: Normocephalic. Neck: Supple. CARDIOVASCULAR: Regular rate. Chest: Clear. Abdomen: Soft. Extremities: Moves all extremities. ASSESSMENT: 1. Dementia. 2. Urinary tract infection, resolved. 3. Hypokalemia, resolved. 4. Acute hepatitis, resolved. PLAN: Will continue patient in the hospital. Continue to leave her unrestrained. Hopefully to rehab soon. cc: Ricky Daley MD
[2017-11-26] MEDS: LIPITOR PO SCH (21:53)
[2017-11-26] MEDS: ATIVAN PO PRN (21:53)
[2017-11-27] MEDS: HUMALOG DOSE (PARKWAY) SUBQ SCH ×4 (06:07→22:36)
[2017-11-27] MEDS: SEROQUEL PO SCH ×2 (09:16→22:33)
[2017-11-27] MEDS: ASPIRIN PO SCH (09:16)
[2017-11-27] MEDS: ARICEPT PO SCH ×2 (09:16→22:32)
[2017-11-27] MEDS: COZAAR PO SCH (09:17)
[2017-11-27] MEDS: BASAGLAR SUBQ SCH (09:17)
[2017-11-27] MEDS: LOVENOX SUBQ SCH (18:37)
--- NOTE | 2017-11-27 20:21 | PROGRESS NOTE ---
DATE: 11/27/2017 SUBJECTIVE: The patient has no complaints. OBJECTIVE: Vital Signs: Reviewed. Temperature 98 degrees, pulse 90, respiratory rate 18, and BP 146/64. General: Patient is awake and alert. She is in no distress. Does not follow commands. Does not answer questions. She is not oriented to person, place, time or situation. HEENT: Normocephalic. CARDIOVASCULAR: Regular rate. Chest: Clear. Abdomen: Soft. Extremities: Moves all extremities. ASSESSMENT: 1. Dementia. 2. Hypertension. 3. High cholesterol. 4. Diabetes. 5. Chronic anxiety. 6. Hypokalemia, resolved. PLAN: We will continue patient in the hospital until which time her insurance allows her to be adequately treated and go to rehab. We will continue to follow. cc: Ricky Daley MD
[2017-11-27] MEDS: LIPITOR PO SCH (22:34)
[2017-11-28] MEDS: HUMALOG DOSE (PARKWAY) SUBQ SCH ×4 (06:41→22:58)
[2017-11-28] MEDS: ARICEPT PO SCH ×2 (09:07→22:19)
[2017-11-28] MEDS: ASPIRIN PO SCH (09:07)
[2017-11-28] MEDS: SEROQUEL PO SCH ×2 (09:08→22:19)
[2017-11-28] MEDS: COZAAR PO SCH (09:08)
[2017-11-28] MEDS: BASAGLAR SUBQ SCH (09:13)
--- NOTE | 2017-11-28 13:58 | PROGRESS NOTE ---
DATE: 11/28/2017 SUBJECTIVE: The patient has no complaints. PHYSICAL: Temperature 98.5, pulse 83, respiratory 18, BP 160/66.General: Patient is awake, alert, she is in no distress. She is lying in the bed. HEENT: Normocephalic. Neck: Supple. CARDIOVASCULAR: Regular rate. Chest: Clear. ASSESSMENT: 1. Hypokalemia resolved. 2. Diabetes stable. 3. Acute delirium resolved, she is back to her baseline. 4. Chronic dementia. PLAN: Will continue to await patient's insurance to approve her to be adequately treated. cc: Ricky Daley MD
[2017-11-28] MEDS: LOVENOX SUBQ SCH (17:59)
[2017-11-28] MEDS: LIPITOR PO SCH (22:18)
[2017-11-29] MEDS: HALDOL IM PRN ×2 (01:07→15:08)
[2017-11-29] MEDS: HUMALOG DOSE (PARKWAY) SUBQ SCH ×4 (06:48→21:30)
[2017-11-29] MEDS: ARICEPT PO SCH ×2 (11:17→21:30)
[2017-11-29] MEDS: SEROQUEL PO SCH ×2 (11:18→21:29)
[2017-11-29] MEDS: COZAAR PO SCH (11:18)
[2017-11-29] MEDS: BASAGLAR SUBQ SCH (11:19)
[2017-11-29] MEDS: ASPIRIN PO SCH (11:19)
[2017-11-29] MEDS: LOVENOX SUBQ SCH (18:38)
--- NOTE | 2017-11-29 18:39 | PROGRESS NOTE ---
DATE: 11/29/2017 SUBJECTIVE: No complaints. Patient is awake, alert. OBJECTIVE: Vital Signs: She is afebrile. Vital signs are stable. Temperature 97.5 degrees, pulse 81, respiratory rate 18, BP 173/74. General: Patient is awake, alert. She is in no distress. HEENT: Normocephalic. Neck: Supple. Cardiovascular: Regular rate. Chest: Clear. Abdomen: Soft. Extremities: Moves all extremities. ASSESSMENT: 1. Dementia. Patient is at her baseline. 2. High cholesterol. 3. Hypertension. 4. Chronic pain. 5. Diabetes. PLAN: We will continue patient in the hospital as she is incapable of caring for herself at home. She is incapable of knowing when to take medications, when not to. Certainly could not send her home with insulin. In fact, it is highly unlikely that she would be able to carry out any activities of daily living. We will continue her in the hospital until which time her insurance decides to allow her to be appropriately cared for. cc: Ricky Daley MD
[2017-11-29] MEDS: LIPITOR PO SCH (21:52)
[2017-11-30] MEDS: HUMALOG DOSE (PARKWAY) SUBQ SCH ×4 (08:09→21:17)
[2017-11-30] MEDS: COZAAR PO SCH (10:28)
[2017-11-30] MEDS: ATIVAN PO PRN ×2 (10:29→21:17)
[2017-11-30] MEDS: ASPIRIN PO SCH (10:29)
[2017-11-30] MEDS: BASAGLAR SUBQ SCH (10:29)
[2017-11-30] MEDS: ARICEPT PO SCH ×2 (10:29→21:17)
[2017-11-30] MEDS: SEROQUEL PO SCH ×2 (10:30→21:17)
--- NOTE | 2017-11-30 12:32 | PROGRESS NOTE ---
DATE: 11/14/2017 SUBJECTIVE: Patient with no complaints. OBJECTIVE: Vital Signs: Reviewed, temperature 98.9, pulse 89, respiratory rate 18, blood pressure 154/71. General: Patient is awake, alert, confused, but at her baseline. Lungs: She is in no respiratory distress. HEENT: Normocephalic. Neck: Supple. CARDIOVASCULAR: Regular rate. Chest: Clear. ASSESSMENT: 1. Dementia. She appears at her baseline. 2. Frequent falls. 3. Metabolic encephalopathy, resolved. 4. Hypertension, the patient frequently refuses medications. PLAN: We will continue supportive care. Continue physical therapy. Unfortunately, as stated multiple times, patient is incapable of caring for herself at home. We are currently awaiting and discussing with her insurance, attempting to get their assistance in finding proper care for Ms. Bajwa. cc: Ricky Daley MD
[2017-11-30] MEDS: LOVENOX SUBQ SCH (18:12)
[2017-11-30] MEDS: LIPITOR PO SCH (21:17)
[2017-12-01] MEDS: HUMALOG DOSE (PARKWAY) SUBQ SCH ×4 (06:07→21:56)
[2017-12-01] MEDS: ARICEPT PO SCH ×2 (10:01→21:48)
[2017-12-01] MEDS: COZAAR PO SCH (10:01)
[2017-12-01] MEDS: SEROQUEL PO SCH ×2 (10:02→21:48)
[2017-12-01] MEDS: ASPIRIN PO SCH (10:09)
[2017-12-01] MEDS: BASAGLAR SUBQ SCH (10:09)
[2017-12-01] MEDS: LOVENOX SUBQ SCH (17:39)
--- NOTE | 2017-12-01 18:25 | PROGRESS NOTE ---
DATE: 12/01/2017 SUBJECTIVE: The patient has no complaints. OBJECTIVE: Temperature 97.8 degrees, pulse 82, respiratory 12, BP 124/52.General: Patient is awake, alert, in no distress. She is lying flatly in the bed. She does have a sitter in the room. She has not been restrained for greater than the past 48 hours. HEENT: Normocephalic. Neck: Supple. CARDIOVASCULAR: Regular rate. Chest: Clear. ASSESSMENT: 1. Chronic dementia. 2. Acute delirium resolved. 3. Urinary tract infection resolved. 4. Hypokalemia resolved. 5. Diabetes with hyperglycemia stable. 6. Hepatitis, acute, resolved. 7. Hypertension stable. PLAN: We will continue patient's medications. Continue physical therapy and continue to await placement. cc: Ricky Daley MD
[2017-12-01] MEDS: LIPITOR PO SCH (21:48)
[2017-12-02 06:40] LABS: HEMATOCRIT 38.2 % (37.0-47.0); HEMOGLOBIN 12.1 g/dL (12.0-16.0); MCH 28.4 PG (27-31); MCHC 31.7 g/dL (33-37); MCV 89.7 FL (81-99); MPV 11.5 FL (7.4-10.4); RBC 4.26 XMIL (4.2-5.4); RDW 14.4 % (11.5-14.5); WBC 10.4 X1000 (4.8-10.8)
[2017-12-02] MEDS: HUMALOG DOSE (PARKWAY) SUBQ SCH ×4 (06:40→22:01)
[2017-12-02 06:54] LABS: AGAP 10; ALBUMIN 3.2 g/dL (3.5-5.0); ALKALINE PHOSPHATASE 104 U/L (32-104); BUN 17 mg/dL (8-22); CALCIUM 9.1 mg/dL (8.8-10.2); CHLORIDE 108 mmol/L (98-107); COSMO 295; CREATININE 0.6 mg/dL (0.5-0.9); ESTIMATED GFR > 60; GLUCOSE 115 mg/dL (70-104); GOT 24 U/L (10-30); GPT 35 U/L (10-36); MAGNESIUM 2.4 mg/dL (1.5-2.7); POTASSIUM 4.5 mmol/L (3.5-5.1); SODIUM 147 mmol/L (136-145); TCO2 29 mmol/L (25-35); TOTAL PROTEIN 7.1 g/dL (6.3-8.3)
[2017-12-02] MEDS: COZAAR PO SCH (10:25)
[2017-12-02] MEDS: ASPIRIN PO SCH (10:25)
[2017-12-02] MEDS: SEROQUEL PO SCH ×2 (10:26→20:18)
[2017-12-02] MEDS: BASAGLAR SUBQ SCH (10:26)
[2017-12-02] MEDS: ARICEPT PO SCH ×2 (10:26→20:18)
--- NOTE | 2017-12-02 11:27 | Diag Imaging Result Doc PS360 ---
EXAM: CT HEAD W/O CONTRAST INDICATION: encephalopathy TECHNIQUE: This exam was performed using automated exposure control, adjustment of mA or kV according to patient size, and/or use of iterative reconstruction technique. COMPARISON: 11/14/2017 FINDINGS: There is extensive low-attenuation in the periventricular and subcortical white matter indicating advanced white matter microangiopathy, stable. There is stable extensive left temporal lobe encephalomalacia underlying a pterional craniotomy defect. There has been a prior left mastoidectomy, stable. There is extensive dural calcification along the left tentorial leaflet that is stable. There is a stable shunt catheter with the tip overlying the left frontal lobe. There is a stable chronic lacunar infarct involving the thalamus on the left and potentially in the left internal capsule. There is no definite acute infarct given the limited sensitivity of CT versus MRI. There is no discrete intracranial mass, mass effect, or intracranial hemorrhage. Surrounding soft tissues are grossly stable. IMPRESSION: Stable advanced chronic changes as described but no definite acute intracranial pathology. Electronically signed by Pacheco Frank 12/02/2017 11:24 AM
--- NOTE | 2017-12-02 11:30 | Diag Imaging Result Doc PS360 ---
EXAM: SHOULDER-RIGHT INDICATION: pain TECHNIQUE: 3 views COMPARISON: None. FINDINGS: There are degenerative changes at the AC joint and glenohumeral joint. The humeral head is high riding, which can indicate rotator cuff injury, potentially chronic. There is no discrete fracture, dislocation, or significant intrinsic osseous lesion, otherwise. The surrounding soft tissues are essentially unremarkable. IMPRESSION: Degenerative arthropathy with a high riding humeral head, which can be associated with rotator cuff injury. Electronically signed by Pacheco Frank 12/02/2017 11:28 AM
[2017-12-02] MEDS: NORVASC PO SCH (12:05)
[2017-12-02] MEDS: 1/2 NS 1,000 ML IV SCH (13:11)
--- NOTE | 2017-12-02 14:54 | PROGRESS NOTE ---
DATE: 12/02/2017 SUBJECTIVE: The patient is very confused. Today, she is just very agitated. I do not think she is always this way. It may be closer to baseline. It was reported earlier today she was more sedated and could not move her right arm, however, pretty much all morning and afternoon she has been very agitated. She speaks very loudly. She is not oriented to place. She is describing just various things. OBJECTIVE: Blood pressure is 200/80. Heart rate of 88, respiratory rate 20, temperature was 97.5 degrees, 98% on room air. Cardiovascular: Regular rate and rhythm. Pulmonary: Bilateral breath sounds. Clear to auscultation. GI soft, nontender, nondistended. Bowel sounds were positive. She has got hypoxia too. LABORATORY DATA: White count is 10, hemoglobin and hematocrit 12 and 38, platelets 262,000. Basic was normal except for sodium of 147. Her sugar today is 426. PROBLEM LIST: 1. Dementia with delirium. She is on several medications. I have given her some Geodon. I am going to titrate up her Seroquel. She is on 200 b.i.d. but, I think I am going to go up on it even more because she is still agitated. 2. Urinary tract infection. That seems to have resolved. 3. Hypernatremia. I am going to give her some gentle hydration but, apparently, I think this is fairly close to baseline for her. 4. Diabetes. She is not controlled. I am going to bump up her Lantus. DISPOSITION: Still waiting on placement rehab versus other. Continue to monitor. cc: Zachery Bill MD
[2017-12-02] MEDS: LOVENOX SUBQ SCH ×2 (17:07→19:30)
[2017-12-02] MEDS: ATIVAN PO PRN (20:17)
[2017-12-02] MEDS: LIPITOR PO SCH (20:18)
[2017-12-02] MEDS: LOPRESSOR PO SCH (20:18)
[2017-12-02] MEDS: GEODON IM PRN (22:00)
[2017-12-03] MEDS: 1/2 NS 1,000 ML IV SCH ×2 (03:28→18:31)
[2017-12-03] MEDS: HUMALOG DOSE (PARKWAY) SUBQ SCH ×4 (06:03→21:49)
[2017-12-03 06:20] LABS: HEMATOCRIT 33.1 % (37.0-47.0); HEMOGLOBIN 10.1 g/dL (12.0-16.0); MCH 27.6 PG (27-31); MCHC 30.5 g/dL (33-37); MCV 90.4 FL (81-99); MPV 11.8 FL (7.4-10.4); RBC 3.66 XMIL (4.2-5.4); RDW 14.5 % (11.5-14.5); WBC 8.57 X1000 (4.8-10.8)
[2017-12-03 06:29] LABS: AGAP 8; BUN 21 mg/dL (8-22); CALCIUM 8.3 mg/dL (8.8-10.2); CHLORIDE 107 mmol/L (98-107); COSMO 289; CREATININE 0.7 mg/dL (0.5-0.9); ESTIMATED GFR > 60; GLUCOSE 89 mg/dL (70-104); SODIUM 144 mmol/L (136-145); TCO2 29 mmol/L (25-35)
[2017-12-03] MEDS: BASAGLAR SUBQ SCH (09:55)
[2017-12-03] MEDS: NORVASC PO SCH (11:28)
[2017-12-03] MEDS: COZAAR PO SCH (11:28)
[2017-12-03] MEDS: ASPIRIN PO SCH (11:28)
[2017-12-03] MEDS: ARICEPT PO SCH ×2 (11:28→21:41)
[2017-12-03] MEDS: SEROQUEL PO SCH ×2 (11:28→21:41)
[2017-12-03] MEDS: LOPRESSOR PO SCH ×2 (11:28→21:41)
--- NOTE | 2017-12-03 15:35 | PROGRESS NOTE ---
DATE: 12/03/2017 SUBJECTIVE: Patient has no focal complaints. OBJECTIVE: Vital Signs: Blood pressure 97/42, heart rate of 69, respiratory rate 18, temperature 97.5 degrees, 98% on room air. Cardiovascular: Regular rate and rhythm. Pulmonary: Bilateral breath sounds diminished at the bases. Gastrointestinal: Soft, nontender, nondistended. Bowel sounds are positive. She still seems a little bit agitated. LABORATORY DATA: White count 8, hemoglobin and hematocrit 10 and 33, platelets 237,000. Sodium is down. PROBLEM LIST: 1. Dementia, delirium. She seems to be doing a little bit better, although she seems a bit over- sedated today. I did go up on her Seroquel but may hold her Ativan, although she has had chronic issues with confusion previously. 2. Hypernatremia that seems to have [*] 3. UTI seems to be stable. 4. Diabetes stable. DISPOSITION: 1. Stable currently. Awaiting placement for rehab. cc: Zachery Bill MD
[2017-12-03] MEDS: LOVENOX SUBQ SCH (18:31)
[2017-12-03] MEDS: LIPITOR PO SCH (21:41)
[2017-12-04] MEDS: NORCO-5 PO PRN (02:04)
[2017-12-04] MEDS: GEODON IM PRN ×3 (05:50→21:12)
[2017-12-04] MEDS: STERILE WATER INJ. INJ PRN ×3 (05:50→21:12)
[2017-12-04] MEDS: 1/2 NS 1,000 ML IV SCH (05:50)
[2017-12-04] MEDS: HUMALOG DOSE (PARKWAY) SUBQ SCH ×4 (06:15→21:34)
[2017-12-04] MEDS: BASAGLAR SUBQ SCH (10:31)
[2017-12-04] MEDS: NORVASC PO SCH (12:17)
[2017-12-04] MEDS: ASPIRIN PO SCH (12:17)
[2017-12-04] MEDS: ARICEPT PO SCH ×2 (12:17→21:11)
[2017-12-04] MEDS: LOPRESSOR PO SCH ×2 (12:17→21:11)
[2017-12-04] MEDS: SEROQUEL PO SCH ×2 (12:18→21:11)
[2017-12-04] MEDS: COZAAR PO SCH (12:18)
--- NOTE | 2017-12-04 15:36 | PROGRESS NOTE ---
DATE: 12/04/2017 SUBJECTIVE: The patient looks well. No major complaints. She looks a little calmer than she did before. OBJECTIVE: Vital Signs: Blood pressure 159/59, heart rate of 74, respiratory rate of 18, temperature 98.6 degrees, satting 95% on room air. Cardiovascular: Regular rate and rhythm. Pulmonary: Bilateral breath sounds. Clear to auscultation. GI: Soft, nontender, nondistended. Bowel sounds are positive. Blood sugar 293 this morning. PROBLEM LIST: 1. Dementia with behavioral issues. She seems to be doing a bit better. She is on the higher dose Seroquel and seems to be doing okay. 2. Hypernatremia seems to have resolved. 3. Type 2 diabetes. Continue regular insulin. Sugars are overall controlled. 4. Urinary tract infection. I believe she has completed her course of antibiotics. 5. Disposition is awaiting rehabilitation placement. We will continue to follow. cc: Zachery Bill MD
[2017-12-04] MEDS: LOVENOX SUBQ SCH (19:09)
[2017-12-04] MEDS: LIPITOR PO SCH (21:11)
[2017-12-05] MEDS: 1/2 NS 1,000 ML IV SCH (00:53)
[2017-12-05 02:28] LABS: URINE SOURCE CLEAN CATCH
[2017-12-05 04:56] LABS: BILIRUBIN URINE NEGATIVE (NEGATIVE); BLOOD URINE 2+ (NEGATIVE); CLARITY CLEAR (CLEAR); COLOR YELLOW; KETONE URINE NEGATIVE (NEGATIVE); LEUKOCYTES URINE 1+ (NEGATIVE); NITRITE URINE NEGATIVE (NEGATIVE); PH URINE 6.5; PROTEIN URINE TRACE mg/dL (NEGATIVE); URINE BACTERIA 2+ /HFP; URINE EPITHELIAL CELLS <10 /HPF (<10); UROBILINOGEN URINE NORMAL
[2017-12-05] MEDS: NORCO-5 PO PRN (05:13)
[2017-12-05 05:44] LABS: HEMATOCRIT 34.2 % (37.0-47.0); HEMOGLOBIN 10.6 g/dL (12.0-16.0); MCH 27.9 PG (27-31); RBC 3.8 XMIL (4.2-5.4); RDW 14.3 % (11.5-14.5); WBC 12.55 X1000 (4.8-10.8)
[2017-12-05] MEDS: HUMALOG DOSE (PARKWAY) SUBQ SCH ×4 (06:13→21:07)
[2017-12-05 06:35] LABS: AGAP 7; BUN 23 mg/dL (8-22); CALCIUM 9.2 mg/dL (8.8-10.2); CHLORIDE 109 mmol/L (98-107); COSMO 297; CREATININE 0.6 mg/dL (0.5-0.9); ESTIMATED GFR > 60; GLUCOSE 175 mg/dL (70-104); POTASSIUM 3.4 mmol/L (3.5-5.1); SODIUM 145 mmol/L (136-145); TCO2 29 mmol/L (25-35)
[2017-12-05] MEDS: SEROQUEL PO SCH ×2 (10:50→22:09)
[2017-12-05] MEDS: ARICEPT PO SCH ×2 (10:51→22:10)
[2017-12-05] MEDS: COZAAR PO SCH (10:51)
[2017-12-05] MEDS: ASPIRIN PO SCH (10:51)
[2017-12-05] MEDS: NORVASC PO SCH (10:51)
[2017-12-05] MEDS: LOPRESSOR PO SCH ×2 (10:51→22:09)
[2017-12-05] MEDS: BASAGLAR SUBQ SCH (11:10)
--- NOTE | 2017-12-05 17:52 | PROGRESS NOTE ---
DATE: 12/05/2017 SUBJECTIVE: The patient has no complaints. She is just sitting up, pleasant. She is not mad, she is not angry. She is about her usual state. OBJECTIVE: Vital Signs: Blood pressure 135/109, heart rate 73, respiratory rate 16, temperature 98.3 degrees, 97% on room air. Cardiovascular: Regular rate and rhythm. Pulmonary: Bilateral breath sounds clear to auscultation. Gastrointestinal: Soft, nontender, nondistended. Bowel sounds are positive. LABORATORY DATA: White count 12.5, hemoglobin and hematocrit 10 and 34, platelets 256,000. Potassium 3.4. On her urine, she may have a component of infection. We are looking at it. Will continue to follow very closely. ASSESSMENT AND PLAN: 1. Dementia with delirium. She appears to be stable. Continue regular medications. Unsure why she cannot go to get re-evaluated by [facility], but will follow. 2. Hyponatremia that has resolved. 3. Urinary tract infection also appears to be stable. DISPOSITION: Weaning her clinical. Awaiting placement. She does have some mild leukocytosis. I will pursue a chest x-ray and follow up on urine culture. cc: Zachery Bill MD
[2017-12-05] MEDS: LOVENOX SUBQ SCH (18:34)
[2017-12-05] MEDS: LIPITOR PO SCH (22:09)
[2017-12-06] MEDS: HUMALOG DOSE (PARKWAY) SUBQ SCH ×4 (06:27→21:33)
--- NOTE | 2017-12-06 08:20 | Diag Imaging Result Doc PS360 ---
EXAM: CHEST-2 VIEWS 12/06/2017 HISTORY: hypoxia TECHNIQUE: PA and lateral chest COMMENT: The lungs are better expanded than they were on 11/14/2017. Otherwise there has been no appreciable change. The lungs are clear at this time. IMPRESSION: Improved bibasilar atelectasis. Electronically signed by Jona Woo 12/06/2017 8:17 AM
[2017-12-06] MEDS: SEROQUEL PO SCH ×2 (10:46→21:34)
[2017-12-06] MEDS: ASPIRIN PO SCH (10:47)
[2017-12-06] MEDS: COZAAR PO SCH (10:47)
[2017-12-06] MEDS: NORVASC PO SCH (10:47)
[2017-12-06] MEDS: ARICEPT PO SCH ×2 (10:48→21:33)
[2017-12-06] MEDS: BASAGLAR SUBQ SCH (10:49)
[2017-12-06] MEDS: LOPRESSOR PO SCH ×2 (10:51→21:34)
[2017-12-06] MEDS: NORCO-5 PO PRN (12:13)
--- NOTE | 2017-12-06 13:43 | PROGRESS NOTE ---
DATE: 12/06/2017 SUBJECTIVE: She is lying in bed. She does not recognize me from yesterday. She has me if I am a doctor. She has no complaints. She seems not as bright and cheerful today a little bit more subdued. OBJECTIVE: Blood pressure 166/73, heart rate of 72, respiratory rate 20, temperature 97.4 degrees, 95% on room air.Cardiovascular: Regular rate and rhythm. Pulmonary: Bilateral breath sounds. Clear to auscultation. GI: Soft, nontender, nondistended. Bowel sounds are positive. LABORATORY DATA: White count 12, hemoglobin and hematocrit 10 and 34, platelets 256,000, potassium 3.4. Glucoses have been high 300s. Urine showed possible infection. Urine culture is pending. Her chest x-ray actually shows improvement. PROBLEM LIST: 1. Delirium and dementia. She is on several medications Aricept, Seroquel. Seems to be doing okay at least controlling her behaviors. 2. Hyponatremia has resolved. 3. Urinary tract infection is also stable unless other 1 has developed. 4. Diabetes is not well controlled. I am going to go up on her Lantus because her sugars are really well they are up and down but they are still fairly elevated but I am going to bump up her Lantus today. DISPOSITION: Pending rehab placement. Waiting on family to assist with placement. cc: Zachery Bill MD
[2017-12-06] MEDS: LOVENOX SUBQ SCH (17:17)
[2017-12-06] MEDS: LIPITOR PO SCH (21:34)
[2017-12-07] MEDS: GEODON IM PRN ×2 (00:45→11:13)
[2017-12-07] MEDS: HUMALOG DOSE (PARKWAY) SUBQ SCH ×3 (06:19→13:38)
[2017-12-07] MEDS: BASAGLAR SUBQ SCH (09:27)
[2017-12-07] MEDS: ASPIRIN PO SCH (09:27)
[2017-12-07] MEDS: SEROQUEL PO SCH ×2 (09:28→20:46)
[2017-12-07] MEDS: NORVASC PO SCH (09:28)
[2017-12-07] MEDS: ARICEPT PO SCH ×2 (09:28→20:45)
[2017-12-07] MEDS: COZAAR PO SCH (09:28)
[2017-12-07] MEDS: LOPRESSOR PO SCH ×2 (09:28→20:46)
[2017-12-07] MEDS: STERILE WATER INJ. INJ PRN (11:13)
[2017-12-07 15:04] LABS: HEMATOCRIT 32.8 % (37.0-47.0); HEMOGLOBIN 10.5 g/dL (12.0-16.0); MCH 28.2 PG (27-31); MCV 88.2 FL (81-99); MPV 10.4 FL (7.4-10.4); RBC 3.72 XMIL (4.2-5.4); RDW 14.4 % (11.5-14.5); WBC 10.63 X1000 (4.8-10.8)
--- NOTE | 2017-12-07 15:07 | PROGRESS NOTE ---
DATE: 12/07/2017 SUBJECTIVE: The patient has no complaints. She got very agitated today and tried to scratch one of the staff members. She is still very confused, agitated. OBJECTIVE: Vital Signs: Blood pressure 190/71, heart rate of 72, respiratory rate 18, temperature 98.5 degrees. Cardiovascular: Regular rate and rhythm. Pulmonary: Bilateral breath sounds. Clear to auscultation. Gastrointestinal: Soft, nontender, nondistended. Bowel sounds are positive. LABORATORY DATA: Nothing new today. Sugars are still up and today her blood pressure is up. PROBLEM LIST: 1. Delirium, dementia. She is on Aricept, Seroquel. We have got her on Zyprexa once a day. I am going to go up to twice a day on that. 2. UTI. Looks like she probably has a urinary tract infection which may be causing some of her confusion. She has got Seroquel, so we are going to continue Seroquel. I have added Zyvox, it is gram-positive cocci and I anticipate it is probably Enterococcus in which case amoxicillin may be fine. Chest x-ray was clear. 3. Hypertension. Have increased her amlodipine to 10 daily. 4. Disposition: Still difficult. I am still a little unclear why she cannot be sent to [facility]. She has never been there. I mean at this point we are just dealing with dementia and behavioral issues. It seems like that and I am giving her medications just to control her behaviors essentially. And the longer she stays here, the more likely she will develop medical issues. But, in any case, the patient is stable. So disposition pending clinical status. We are still looking at placement, but we will see how things go. cc: Zachery Bill MD
[2017-12-07 15:25] LABS: AGAP 7; BUN 14 mg/dL (8-22); CALCIUM 9.7 mg/dL (8.8-10.2); CHLORIDE 109 mmol/L (98-107); COSMO 286; CREATININE 0.7 mg/dL (0.5-0.9); ESTIMATED GFR > 60; GLUCOSE 42 mg/dL (70-104); POTASSIUM 3.3 mmol/L (3.5-5.1); SODIUM 145 mmol/L (136-145); TCO2 29 mmol/L (25-35)
[2017-12-07] MEDS: ZYVOX PO SCH ×2 (16:30→20:46)
[2017-12-07] MEDS: LOVENOX SUBQ SCH (17:56)
[2017-12-07] MEDS: HUMULIN R (PARKWAY) SUBQ SCH (20:45)
[2017-12-07] MEDS: LIPITOR PO SCH (20:46)
[2017-12-07] MEDS: ZYPREXA PO SCH (20:46)
[2017-12-08] MEDS: HUMULIN R (PARKWAY) SUBQ SCH ×3 (06:13→20:26)
[2017-12-08] MEDS: ARICEPT PO SCH ×2 (09:39→20:26)
[2017-12-08] MEDS: SEROQUEL PO SCH ×2 (09:39→20:26)
[2017-12-08] MEDS: ASPIRIN PO SCH (09:39)
[2017-12-08] MEDS: NORVASC PO SCH (09:39)
[2017-12-08] MEDS: COZAAR PO SCH (09:40)
[2017-12-08] MEDS: ZYVOX PO SCH (09:40)
[2017-12-08] MEDS: LOPRESSOR PO SCH ×2 (10:03→20:26)
[2017-12-08] MEDS: BASAGLAR SUBQ SCH (10:03)
--- NOTE | 2017-12-08 15:23 | PROGRESS NOTE ---
DATE: 12/08/2017 SUBJECTIVE: The patient has no focal complaints. She is actively hallucinating per the house staff. No major issues. Apparently I think she did get a little bit more violent yesterday because Zyprexa was added. OBJECTIVE: Blood pressure 137/77, heart rate of 87, respiratory rate 20, temperature 97.6 degrees.Cardiovascular: Regular rate and rhythm. Pulmonary: Bilateral breath sounds. Clear to auscultation. GI: Soft, nontender, nondistended. Bowel sounds are positive. LABS: No new labs today but her blood sugars continue to be elevated. PROBLEM LIST: 1. Delirium, dementia. She is on Aricept, Seroquel and Zyprexa. I do really think she would benefit from a geripsych evaluation. I will try to see if that can at least make some recommendations for us because she is having a lot of behavioral issues and I think they could be best handled by the psychiatrist. They are not going to take her because there is no disposition because she has no power of insurance attorney. The family I think is dealing with her who also has issues but now she essentially is here without any caregivers. 2. Urinary tract infection, it is a Staph epidermidis urinary tract infection. I am going to put her on doxycycline . She seems to be doing okay. 3. Hypertension is better controlled and amlodipine. DISPOSITION: Pending clinical status. We will continue to follow. cc: Zachery Bill MD
[2017-12-08] MEDS: DOXYCYCLINE PO SCH (18:38)
[2017-12-08] MEDS: LOVENOX SUBQ SCH (18:38)
[2017-12-08] MEDS: ZYPREXA PO SCH (20:25)
[2017-12-08] MEDS: LIPITOR PO SCH (20:26)
[2017-12-09 06:05] LABS: BASO# 0.02 X1000 (0.0-0.2); BASO% 0.2 % (0.0-0.8); EOS# 0.05 X1000 (0.0-0.7); EOS% 0.4 % (0.0-10.0); HEMOGLOBIN 10.9 g/dL (12.0-16.0); IMM GRAN# 0.11 X1000 (0.0-0.04); IMM GRAN% 0.9 % (0.0-0.5); LYMPH# 1.91 X1000 (1.2-3.4); LYMPH% 16.1 % (20.5-51.1); MCH 28.7 PG (27-31); MCHC 32.1 g/dL (33-37); MCV 89.5 FL (81-99); MONO# 1.09 X1000 (0.11-0.59); MONO% 9.2 % (1.7-9.3); MPV 11.3 FL (7.4-10.4); NEUT% 73.2 % (42.2-75.2); PLT 301 X1000 (130-400); RDW 14.8 % (11.5-14.5); WBC 11.88 X1000 (4.8-10.8)
[2017-12-09 06:21] LABS: ALBUMIN 3.2 g/dL (3.5-5.0); CALCIUM 9.6 mg/dL (8.8-10.2); TOTAL BILIRUBIN 0.2 mg/dL (0.20-1.00); TOTAL PROTEIN 6.2 g/dL (6.3-8.3)
[2017-12-09] MEDS: HUMULIN R (PARKWAY) SUBQ SCH ×5 (06:29→19:46)
[2017-12-09] MEDS: DOXYCYCLINE PO SCH ×2 (10:44→16:32)
[2017-12-09] MEDS: NORVASC PO SCH (10:45)
[2017-12-09] MEDS: LOPRESSOR PO SCH ×2 (10:45→20:44)
[2017-12-09] MEDS: SEROQUEL PO SCH ×2 (10:45→20:43)
[2017-12-09] MEDS: COZAAR PO SCH (10:46)
[2017-12-09] MEDS: ASPIRIN PO SCH (10:46)
[2017-12-09] MEDS: ARICEPT PO SCH ×2 (10:46→20:43)
[2017-12-09] MEDS: BASAGLAR SUBQ SCH (10:47)
[2017-12-09] MEDS: LOVENOX SUBQ SCH ×2 (16:32→17:32)
[2017-12-09] MEDS: LIPITOR PO SCH (20:43)
[2017-12-09] MEDS: ZYPREXA PO SCH (20:44)
--- NOTE | 2017-12-09 22:08 | PROGRESS NOTE ---
DATE: 12/09/2017 SUBJECTIVE: Patient has no complaints. OBJECTIVE: Vital Signs: Reviewed. Temperature 98.2 degrees, pulse 70, respiratory 18, BP 120/18. General: Patient is awake, alert, currently in no distress. HEENT: Normocephalic. Neck: Supple. CV: Regular rate. Chest: Clear. Abdomen: Soft. ASSESSMENT: 1. Delirium resolved. 2. Dementia stable on Aricept, Seroquel and Zyprexa . 3. Urinary tract infection with Staph epidermidis currently on doxycycline. 4. Hypertension. PLAN: Will continue disposition and will follow. cc: Ricky Daley MD
[2017-12-10] MEDS: HUMULIN R (PARKWAY) SUBQ SCH ×5 (00:38→20:32)
[2017-12-10] MEDS: STERILE WATER INJ. INJ PRN (00:58)
[2017-12-10] MEDS: GEODON IM PRN (00:59)
[2017-12-10] MEDS: BASAGLAR SUBQ SCH (09:00)
[2017-12-10] MEDS: SEROQUEL PO SCH ×2 (09:47→20:27)
[2017-12-10] MEDS: DOXYCYCLINE PO SCH ×2 (09:47→17:46)
[2017-12-10] MEDS: LOPRESSOR PO SCH ×2 (09:48→20:31)
[2017-12-10] MEDS: NORVASC PO SCH (09:48)
[2017-12-10] MEDS: COZAAR PO SCH (09:48)
[2017-12-10] MEDS: ARICEPT PO SCH ×2 (09:49→20:31)
[2017-12-10] MEDS: ASPIRIN PO SCH (09:49)
[2017-12-10 10:21] LABS: HEMATOCRIT 37.9 % (37.0-47.0); HEMOGLOBIN 12.1 g/dL (12.0-16.0); MCH 28.3 PG (27-31); MCHC 31.9 g/dL (33-37); MCV 88.8 FL (81-99); MPV 11.3 FL (7.4-10.4); RBC 4.27 XMIL (4.2-5.4); RDW 14.8 % (11.5-14.5); WBC 12.37 X1000 (4.8-10.8)
[2017-12-10 10:31] LABS: AGAP 10; ALBUMIN 3.9 g/dL (3.5-5.0); ALKALINE PHOSPHATASE 118 U/L (32-104); BUN 20 mg/dL (8-22); CALCIUM 9.8 mg/dL (8.8-10.2); CHLORIDE 105 mmol/L (98-107); COSMO 299; CREATININE 0.8 mg/dL (0.5-0.9); ESTIMATED GFR > 60; GLUCOSE 238 mg/dL (70-104); GOT 23 U/L (10-30); GPT 31 U/L (10-36); POTASSIUM 3.4 mmol/L (3.5-5.1); SODIUM 145 mmol/L (136-145); TCO2 30 mmol/L (25-35); TOTAL PROTEIN 7.4 g/dL (6.3-8.3)
[2017-12-10] MEDS: LOVENOX SUBQ SCH (17:46)
[2017-12-10] MEDS: LIPITOR PO SCH (20:31)
--- NOTE | 2017-12-10 21:11 | PROGRESS NOTE ---
DATE: 12/10/2017 SUBJECTIVE: Patient without any new complaints. OBJECTIVE: Vital Signs: Reviewed. Temp 98.2 degrees, pulse 76, respiratory rate 16, BP 133/64. General: Patient currently is awake. She is confused and disoriented. She is somewhat agitated this morning. She had a quite eventful night due to agitation. HEENT: Normocephalic. Neck: Supple. CARDIOVASCULAR: Regular rate. Chest: Clear. Abdomen: Soft. ASSESSMENT: 1. Acute on chronic dementia. 2. Acute delirium. 3. Acute agitation. PLAN: We will continue patient in the hospital. Continue to observe. We will check urine and blood cultures. Recheck her labs to make sure that she has no infectious process started and will follow. cc: Ricky Daley MD
[2017-12-11] MEDS: ZYPREXA PO SCH (01:49)
[2017-12-11] MEDS: HUMULIN R (PARKWAY) SUBQ SCH ×3 (11:03→16:48)
[2017-12-11] MEDS: COZAAR PO SCH (12:35)
[2017-12-11] MEDS: NORVASC PO SCH (12:35)
[2017-12-11] MEDS: LOPRESSOR PO SCH (12:35)
[2017-12-11] MEDS: ASPIRIN PO SCH (12:35)
[2017-12-11] MEDS: DOXYCYCLINE PO SCH ×2 (12:35→19:22)
[2017-12-11] MEDS: SEROQUEL PO SCH (12:35)
[2017-12-11] MEDS: ARICEPT PO SCH (12:36)
[2017-12-11] MEDS: BASAGLAR SUBQ SCH (12:36)
[2017-12-11 13:28] LABS: COLOR YELLOW; URINE BACTERIA NEGATIVE /HFP; URINE CAST NONE SEEN /LPF; URINE CRYSTAL NONE SEEN /HPF; URINE EPITHELIAL CELLS <10 /HPF (<10); URINE SOURCE CLEAN CATCH; URINE YEAST NONE SEEN /HPF
[2017-12-11 13:29] LABS: BILIRUBIN URINE NEGATIVE (NEGATIVE); BLOOD URINE NEGATIVE (NEGATIVE); CLARITY CLEAR (CLEAR); KETONE URINE NEGATIVE (NEGATIVE); LEUKOCYTES URINE NEGATIVE (NEGATIVE); NITRITE URINE NEGATIVE (NEGATIVE); PROTEIN URINE 2+(100 mg/dL) mg/dL (NEGATIVE); SP GRAVITY URINE 1.005; UROBILINOGEN URINE NORMAL
[2017-12-11] MEDS: STERILE WATER INJ. INJ PRN (15:39)
[2017-12-11] MEDS: GEODON IM PRN (15:39)
[2017-12-11] MEDS: BENADRYL IM PRN (15:39)
[2017-12-11] MEDS: LOVENOX SUBQ SCH (19:23)
--- NOTE | 2017-12-11 21:27 | PROGRESS NOTE ---
DATE: 12/11/2017 SUBJECTIVE: Patient with no new complaints. OBJECTIVE: Vital Signs: Temperature 97 degrees, pulse 67, respiratory rate 20, blood pressure 105/45. General: Patient is awake, alert. She is in no distress. She is attempting to eat breakfast. HEENT: Normocephalic. Neck: Supple. CARDIOVASCULAR: Regular rate. Chest: Clear. Abdomen: Soft. ASSESSMENT: 1. Hypoglycemia in a patient with known diabetes. We will decrease her sliding scale insulin as she is erratic in what she eats. 2. Urinary tract infection with Staphylococcus epidermidis. Repeat culture is pending. 3. Hypertension. 4. Chronic dementia. PLAN: Repeat blood cultures are pending. Continue antibiotics until negative. cc: Ricky Daley MD
[2017-12-12] MEDS: ARICEPT PO SCH ×3 (00:37→22:24)
[2017-12-12] MEDS: LOPRESSOR PO SCH ×3 (00:38→23:29)
[2017-12-12] MEDS: HUMULIN R (PARKWAY) SUBQ SCH ×5 (00:38→20:58)
[2017-12-12] MEDS: LIPITOR PO SCH ×2 (00:38→22:24)
[2017-12-12] MEDS: ZYPREXA PO SCH ×2 (00:39→23:32)
[2017-12-12] MEDS: SEROQUEL PO SCH ×3 (00:39→23:32)
[2017-12-12] MEDS: NORVASC PO SCH (12:06)
[2017-12-12] MEDS: ASPIRIN PO SCH (12:07)
[2017-12-12] MEDS: DOXYCYCLINE PO SCH ×2 (12:07→17:21)
[2017-12-12] MEDS: COZAAR PO SCH (12:08)
[2017-12-12] MEDS: BASAGLAR SUBQ SCH (12:19)
[2017-12-12] MEDS: LOVENOX SUBQ SCH (17:21)
--- NOTE | 2017-12-12 19:20 | PROGRESS NOTE ---
DATE: 12/12/2017 SUBJECTIVE: Patient has no new complaints. OBJECTIVE: Vital Signs: She is afebrile. Pulse 66, respiratory 16. Blood pressure was elevated at 152/111, currently back down into the 120/80 range. General: Patient is awake, alert. She is in no distress. Pleasant currently. CARDIOVASCULAR: Regular rate. Chest: Clear. Abdomen: Soft. ASSESSMENT: 1. Hypoglycemia, appears to be improving. 2. Hypertension. Continue to follow. 3. Chronic delirium due to her dementia. 4. Chronic dementia. PLAN: We will continue to attempt to find a suitable discharge plan. cc: Ricky Daley MD
[2017-12-12] MEDS: GEODON IM PRN (21:37)
[2017-12-12] MEDS: BENADRYL IM PRN (21:37)
[2017-12-12] MEDS: STERILE WATER INJ. INJ PRN (21:38)
[2017-12-13] MEDS: HUMULIN R (PARKWAY) SUBQ SCH ×4 (07:05→20:53)
[2017-12-13] MEDS: LOPRESSOR PO SCH ×2 (09:36→20:16)
[2017-12-13] MEDS: SEROQUEL PO SCH ×2 (09:36→20:15)
[2017-12-13] MEDS: COZAAR PO SCH (09:37)
[2017-12-13] MEDS: LEVAQUIN PO SCH (09:37)
[2017-12-13] MEDS: ASPIRIN PO SCH (09:37)
[2017-12-13] MEDS: DOXYCYCLINE PO SCH ×2 (09:37→17:38)
[2017-12-13] MEDS: NORVASC PO SCH (09:37)
[2017-12-13] MEDS: BASAGLAR SUBQ SCH (09:37)
[2017-12-13] MEDS: ARICEPT PO SCH ×2 (09:37→20:16)
[2017-12-13] MEDS: LOVENOX SUBQ SCH (17:38)
--- NOTE | 2017-12-13 19:52 | PROGRESS NOTE ---
DATE: 12/13/2017 SUBJECTIVE: The patient has no complaints. OBJECTIVE: Vital Signs: Reviewed. Temperature 97.8 degrees, pulse 67, respiratory 22, blood pressure 150/75. General: Patient is awake and alert, in no distress. Neck: Supple. No JVD. CARDIOVASCULAR: Regular rate. Chest: Clear. ASSESSMENT: 1. Urinary tract infection growing gram-negative rods. Patient is currently on antibiotics. 2. Hypoglycemia. It is very difficult to get her to continue to eat on a regular basis. 3. Dementia. PLAN: Patient currently is awaiting her insurance company to allow her to be adequately treated and transferred to rehab. cc: Ricky Daley MD
[2017-12-13] MEDS: LIPITOR PO SCH (20:15)
[2017-12-13] MEDS: ZYPREXA PO SCH (20:16)
[2017-12-14] MEDS: HUMULIN R (PARKWAY) SUBQ SCH ×4 (06:04→20:39)
[2017-12-14 06:35] LABS: HEMATOCRIT 33.1 % (37.0-47.0); HEMOGLOBIN 10.3 g/dL (12.0-16.0); MCH 27.8 PG (27-31); MCHC 31.1 g/dL (33-37); MCV 89.2 FL (81-99); MPV 11.3 FL (7.4-10.4); RBC 3.71 XMIL (4.2-5.4); WBC 8.47 X1000 (4.8-10.8)
[2017-12-14 06:51] LABS: ALBUMIN 3.1 g/dL (3.5-5.0); CALCIUM 9.7 mg/dL (8.8-10.2); CREATININE 0.9 mg/dL (0.5-0.9); MAGNESIUM 2.4 mg/dL (1.5-2.7); POTASSIUM 3.5 mmol/L (3.5-5.1); TOTAL BILIRUBIN 0.2 mg/dL (0.20-1.00); TOTAL PROTEIN 5.9 g/dL (6.3-8.3)
[2017-12-14] MEDS: LEVAQUIN PO SCH (10:07)
[2017-12-14] MEDS: COZAAR PO SCH (10:07)
[2017-12-14] MEDS: ARICEPT PO SCH (10:07)
[2017-12-14] MEDS: ASPIRIN PO SCH (10:07)
[2017-12-14] MEDS: DOXYCYCLINE PO SCH (10:08)
[2017-12-14] MEDS: LOPRESSOR PO SCH ×2 (10:08→20:37)
[2017-12-14] MEDS: SEROQUEL PO SCH ×2 (10:08→20:37)
[2017-12-14] MEDS: NORVASC PO SCH (10:09)
[2017-12-14] MEDS: 1/2 NS 1,000 ML IV SCH (12:15)
[2017-12-14] MEDS: INVANZ 1 GM/NS 1 GM/50 ML IVPB IV SCH (13:17)
--- NOTE | 2017-12-14 13:48 | PROGRESS NOTE ---
DATE: 12/14/2017 SUBJECTIVE: She seems awake today. Not super confused. OBJECTIVE: Vital signs: Blood pressure 199/78, heart rate 93, respiratory rate 18, temperature 97.4 degrees, 100% on room air. Cardiovascular: Regular rate and rhythm. Pulmonary: Bilateral breath sounds. Clear to auscultation. GI: Soft, nontender, nondistended. Bowel sounds are positive. LABORATORY DATA: White count 8, hemoglobin and hematocrit 10 and 33, platelets 286,000. Sodium is 152. Glucose this morning was 29; repeat is 181. It was 27 at 5 a.m. but then it was 360, 357, 286. So [*] very hyperglycemic. Micro has E. coli that is an ESBL UTI. PROBLEM LIST: 1. Extended spectrum beta lactamase urinary tract infection, Escherichia coli. Start Invanz and we will see how things go. It is resistant to Levaquin so I am going to hold that. She is on doxy from her previous Staphylococcus epidermidis, but I think she has had 8 days of that. So, I think we can probably stop the doxycycline and just leave her on the Merrem. 2. Hypoglycemia. She has very labile blood sugars. We will follow. I do think she needs some control. Apparently she has not, as far as I can tell, been getting her Lantus, maybe 1 dose since it has been ordered, because morning sugars are very low but then the rest of her sugars all day are in the 300-400 range. I have not been aware of that. In any case, I will start lower dose Lantus at night and see how she does. 3. Dementia. She is currently on her regular medications. There was some concern from the nursing staff that her antipsychotics were causing hypoglycemia. You know, she may be having a Somogyi type affect where she gets very hyperglycemic in the middle of the night. 4. Disposition. I think she is going to rehab soon. 5. Hypernatremia. We will give her some half-normal saline and follow. Condition is stable. cc: Zachery Bill MD
[2017-12-14] MEDS: LOVENOX SUBQ SCH (17:28)
[2017-12-14] MEDS: LIPITOR PO SCH (20:37)
[2017-12-14] MEDS: ZYPREXA PO SCH (20:37)
[2017-12-15] MEDS: BENADRYL IM PRN ×2 (00:01→15:27)
[2017-12-15] MEDS: STERILE WATER INJ. INJ PRN ×2 (00:01→15:27)
[2017-12-15] MEDS: GEODON IM PRN ×2 (00:01→15:28)
[2017-12-15] MEDS: 1/2 NS 1,000 ML IV SCH ×2 (01:33→14:49)
[2017-12-15] MEDS: HUMULIN R (PARKWAY) SUBQ SCH ×4 (06:11→20:44)
[2017-12-15] MEDS: NORVASC PO SCH (08:48)
[2017-12-15] MEDS: SEROQUEL PO SCH ×2 (08:49→20:23)
[2017-12-15] MEDS: ASPIRIN PO SCH (08:49)
[2017-12-15] MEDS: LOPRESSOR PO SCH ×2 (08:49→20:23)
[2017-12-15] MEDS: COZAAR PO SCH (08:49)
[2017-12-15 10:05] LABS: HEMATOCRIT 35.8 % (37.0-47.0); HEMOGLOBIN 11.2 g/dL (12.0-16.0); MCH 28.1 PG (27-31); MCHC 31.3 g/dL (33-37); MCV 89.7 FL (81-99); MPV 11.2 FL (7.4-10.4); RBC 3.99 XMIL (4.2-5.4); RDW 15.1 % (11.5-14.5); WBC 8.61 X1000 (4.8-10.8)
[2017-12-15 10:20] LABS: AGAP 7; BUN 25 mg/dL (8-22); CHLORIDE 109 mmol/L (98-107); COSMO 300; CREATININE 0.7 mg/dL (0.5-0.9); ESTIMATED GFR > 60; GLUCOSE 255 mg/dL (70-104); POTASSIUM 3.8 mmol/L (3.5-5.1); SODIUM 144 mmol/L (136-145); TCO2 28 mmol/L (25-35)
[2017-12-15] MEDS: INVANZ 1 GM/NS 1 GM/50 ML IVPB IV SCH (14:49)
--- NOTE | 2017-12-15 15:29 | PROGRESS NOTE ---
DATE: 12/15/2017 SUBJECTIVE: She looks at her baseline I mean no complaints, at least no major complaints. OBJECTIVE: Blood pressure is 157/66, heart rate of 91, respiratory 18, temperature 99 degrees, 99% on room air.Cardiovascular: Regular rate and rhythm. Pulmonary: Bilateral breath sounds. Clear to auscultation. GI: Soft, nontender, nondistended. Bowel sounds are positive. LABORATORY DATA: White count 8, hemoglobin and hematocrit 11, 35, sodium is 144. Sugars up to 255 this morning but we did not have any of the profound drops with switching her dosing time. PROBLEM LIST: 1. Extended spectrum beta-lactamase Escherichia coli urinary tract infection. She is on Invanz. She can potentially be switched over to Macrobid based on the sensitivities. I am going to give her couple more IV doses. I think she is on day 2 or 3 today but clinically she seems better. 2. Hypernatremia. That seems to have resolved. 3. Hypoglycemia up and down diabetes but I have switched her Lantus to at night and she seems to be doing okay. I am going to bump up the dose a little bit. 4. Dementia appears to be stable. 5. Disposition. She is pending rehab, long-term placement. We will continue to follow. cc: Zachery Bill MD
[2017-12-15] MEDS: LOVENOX SUBQ SCH (18:56)
[2017-12-15] MEDS: INVANZ IM SCH (20:22)
[2017-12-15] MEDS: LIPITOR PO SCH (20:22)
[2017-12-15] MEDS: ZYPREXA PO SCH (20:23)
[2017-12-16] MEDS: STERILE WATER INJ. INJ PRN (05:35)
[2017-12-16] MEDS: GEODON IM PRN (05:35)
[2017-12-16] MEDS: BENADRYL IM PRN (05:35)
[2017-12-16] MEDS: HUMULIN R (PARKWAY) SUBQ SCH ×4 (06:14→21:42)
[2017-12-16] MEDS: COZAAR PO SCH (10:12)
[2017-12-16] MEDS: ASPIRIN PO SCH (10:12)
[2017-12-16] MEDS: INVANZ IM SCH (10:12)
[2017-12-16] MEDS: SEROQUEL PO SCH (10:12)
[2017-12-16] MEDS: LOPRESSOR PO SCH (10:13)
[2017-12-16] MEDS: NORVASC PO SCH (10:13)
[2017-12-16] MEDS: XYLOCAINE-MPF 1% INJ PRN (10:31)
--- NOTE | 2017-12-16 13:04 | PROGRESS NOTE ---
DATE: 12/16/2017 SUBJECTIVE: She is sitting up in bed. No complaints. Eating imaginary food. She clearly has an active psychiatric issue associated with her dementia. OBJECTIVE: Vital signs: Blood pressure 135/84, heart rate of 88, respiratory rate 15, temperature 98.5 degrees, 99% on room air. Cardiovascular: Regular rate and rhythm. Pulmonary: Bilateral breath sounds. Clear to auscultation. GI: Soft, nontender, nondistended. Bowel sounds are positive. LABORATORY DATA: White count 8.6, that was from a couple days ago. Her sugars have been better. She has not had any further low sugars, but she is still not controlled. PROBLEM LIST: 1. Extended spectrum beta lactamase urinary tract infection, Escherichia coli. She is on Invanz but I think we could probably switch her to Macrobid today and see how she does. 2. Hypernatremia. That has resolved. 3. Dementia with behavioral issues. Still gets very agitated. She is on Zyprexa and Seroquel. It would be helpful for some shaina psych adjustment. 4. Disposition. Waiting for rehab when stable. cc: Zachery Bill MD
[2017-12-16] MEDS: INSTA-GLUCOSE ONE ×2 (18:42→18:43)
[2017-12-16] MEDS: LOVENOX SUBQ SCH (19:00)
[2017-12-16] MEDS: BASAGLAR SUBQ SCH (21:41)
[2017-12-17] MEDS: LIPITOR PO SCH ×2 (01:06→20:18)
[2017-12-17] MEDS: LOPRESSOR PO SCH ×3 (01:06→20:18)
[2017-12-17] MEDS: MACROBID PO SCH ×3 (01:06→20:18)
[2017-12-17] MEDS: SEROQUEL PO SCH ×3 (01:07→20:18)
[2017-12-17] MEDS: ZYPREXA PO SCH ×2 (01:07→20:18)
[2017-12-17] MEDS: HUMULIN R (PARKWAY) SUBQ SCH ×3 (06:56→17:01)
[2017-12-17] MEDS: ASPIRIN PO SCH (09:03)
[2017-12-17] MEDS: COZAAR PO SCH (09:03)
[2017-12-17] MEDS: XYLOCAINE-MPF 1% INJ PRN (09:04)
[2017-12-17] MEDS: NORVASC PO SCH (09:04)
[2017-12-17] MEDS: INVANZ IM SCH (09:05)
[2017-12-17] MEDS: NORCO-5 PO PRN (11:48)
--- NOTE | 2017-12-17 14:24 | PROGRESS NOTE ---
DATE: 12/17/2017 SUBJECTIVE: The patient has no focal complaints. OBJECTIVE: Vital Signs: Blood pressure is 140/66, heart rate of 81, respiratory rate 16, temperature 99 degrees. Cardiovascular: Regular rate and rhythm. Pulmonary: Bilateral breath sounds. Clear to auscultation. Gastrointestinal: Soft, nontender, nondistended. Bowel sounds are positive. LABORATORY DATA: Sugars are still 190s to 300s, still vary, not very well-controlled, but then she has periods where she just bottoms out. PROBLEM LIST: 1. Extended-spectrum beta-lactamase urinary tract infection. She is on Invanz. We will probably switch her to Macrobid in the next day or 2. 2. Dementia with behavioral issues. She is on Zyprexa and Seroquel. 3. Fluctuant blood sugars with overall poor control. Switch her sliding scale and we will continue to monitor her very closely. 4. Disposition. Awaiting rehabilitation placement. cc: Zachery Bill MD
[2017-12-17] MEDS: LOVENOX SUBQ SCH (17:02)
[2017-12-17] MEDS: BASAGLAR SUBQ SCH (20:18)
[2017-12-18] MEDS: HUMULIN R (PARKWAY) SUBQ SCH ×5 (05:58→20:41)
[2017-12-18] MEDS: SEROQUEL PO SCH ×2 (09:40→20:24)
[2017-12-18] MEDS: ASPIRIN PO SCH (09:40)
[2017-12-18] MEDS: MACROBID PO SCH ×2 (09:40→20:25)
[2017-12-18] MEDS: COZAAR PO SCH (09:41)
[2017-12-18] MEDS: LOPRESSOR PO SCH ×2 (09:41→20:24)
[2017-12-18] MEDS: NORVASC PO SCH (09:52)
--- NOTE | 2017-12-18 15:37 | PROGRESS NOTE ---
DATE: 12/18/2017 SUBJECTIVE: The patient has no major complaints. She is lying in bed. Kind of pleasantly confused. OBJECTIVE: Vital signs: Blood pressure 148/67, heart rate of 78, respiratory rate of 20, 99% on room air. Cardiovascular: Regular rate and rhythm. Pulmonary: Bilateral breath sounds. Clear to auscultation. GI: Soft, nontender, nondistended. Bowel sounds are positive. LABORATORY DATA: Her sugars have been okay, except she bottomed out again this morning at 39. PROBLEM LIST: 1. Extended spectrum beta lactamase urinary tract infection. She was on Invanz. She is on my to Macrobid now; this will be day 3. Will probably complete 10 days. 2. Dementia with behavioral issues. She is on Zyprexa and Seroquel. 3. Type 2 diabetes. Switching her sliding scale and continue to follow. DISPOSITION: The patient is stable. We will continue to follow. cc: Zachery Bill MD
[2017-12-18] MEDS: LOVENOX SUBQ SCH ×2 (17:25→17:30)
[2017-12-18] MEDS: HUMULIN N INSULIN (PARKWAY) SUBQ SCH (17:25)
[2017-12-18] MEDS: ZYPREXA PO SCH (20:24)
[2017-12-18] MEDS: LIPITOR PO SCH (20:24)
[2017-12-19] MEDS: HUMULIN R (PARKWAY) SUBQ SCH ×4 (06:22→20:24)
--- NOTE | 2017-12-19 08:32 | PROGRESS NOTE ---
DATE: 12/19/2017 SUBJECTIVE: Patient is lying in bed, and confused, and also gets agitated at times. OBJECTIVE: Vital Signs: Temperature 97.6 degrees, pulse is 71 per minute, respiratory rate 18 per minute, blood pressure 144/81, pulse ox 97% on room air. Cardiovascular: Heart sounds are regular without any arrhythmia. Respiratory: Bilateral lung air entry is good without any rales or rhonchi present on auscultation. Gastrointestinal: Abdomen is soft and nontender on palpation. Normal bowel sounds are positive. Musculoskeletal System: No deformities are present. LAB DATA: No new lab data is there; although, there is a CBC from December 15, 2017 , with hemoglobin of 11.2 and hematocrit 35.8. Chemistry done on December 15, 2017, was also reviewed and showed glucose levels of 255. ASSESSMENT AND PLAN: 1. Extended spectrum beta-lactamase positive urinary tract infection that was initially treated with Invanz IV and is now on Macrobid 100 mg orally twice daily. Today is day 4, and I believe she is going to complete the 10 day therapy. 2. Type 2 diabetes mellitus for which she will continue getting NPH insulin 12 units twice daily, and has been getting regular insulin as per sliding scale. 3. Hypertension. We will continue with Norvasc 10 mg daily along with losartan 100 mg daily and metoprolol 25 mg twice daily. Her blood pressure has been stable so far. 4. Dementia with behavioral signs. We will continue with Zyprexa 5 mg daily at bedtime along with Seroquel 200 mg twice daily. We can give her Geodon on as-needed basis. 5. Dyslipidemia. We will continue with Lipitor 40 mg orally once daily at bedtime. 6. Venous thromboembolism prophylaxis will be provided with enoxaparin 30 mg subcutaneously every 24 hours. We are awaiting bed placement for this patient and as bed is available. We are going to transfer her to an inpatient rehab as soon as a bed is available. cc: Hernan Morelos MD MTDD
[2017-12-19] MEDS: HUMULIN N INSULIN (PARKWAY) SUBQ SCH ×2 (09:12→17:01)
[2017-12-19] MEDS: SEROQUEL PO SCH ×2 (09:13→20:23)
[2017-12-19] MEDS: COZAAR PO SCH (09:13)
[2017-12-19] MEDS: NORVASC PO SCH (09:13)
[2017-12-19] MEDS: MACROBID PO SCH ×2 (09:13→20:24)
[2017-12-19] MEDS: ASPIRIN PO SCH (09:13)
[2017-12-19] MEDS: LOPRESSOR PO SCH ×2 (09:13→20:23)
[2017-12-19] MEDS: LOVENOX SUBQ SCH (17:02)
[2017-12-19] MEDS: LIPITOR PO SCH (20:23)
[2017-12-19] MEDS: ZYPREXA PO SCH (20:24)
[2017-12-19] MEDS: BENADRYL IM PRN (22:07)
[2017-12-19] MEDS: GEODON IM PRN (22:07)
[2017-12-19] MEDS: STERILE WATER INJ. INJ PRN (22:07)
[2017-12-20] MEDS: LOVENOX SUBQ SCH ×2 (03:35→17:41)
[2017-12-20] MEDS: HUMULIN R (PARKWAY) SUBQ SCH ×4 (06:13→22:07)
[2017-12-20] MEDS: SEROQUEL PO SCH ×2 (08:19→22:09)
[2017-12-20] MEDS: HUMULIN N INSULIN (PARKWAY) SUBQ SCH (08:19)
[2017-12-20] MEDS: NORVASC PO SCH (08:19)
[2017-12-20] MEDS: LOPRESSOR PO SCH ×2 (08:19→22:08)
[2017-12-20] MEDS: ASPIRIN PO SCH (08:19)
[2017-12-20] MEDS: COZAAR PO SCH (08:19)
[2017-12-20] MEDS: MACROBID PO SCH ×2 (08:20→22:09)
--- NOTE | 2017-12-20 10:04 | PROGRESS NOTE ---
DATE: 12/20/2017 REFERRING PHYSICIAN: Dr. Doung Ayala. SUBJECTIVE: Patient is lying in bed, but remains confused and also agitated at times. OBJECTIVE: Vital Signs: Temperature 98.4 degrees, pulse 93 per minute, respiratory rate 18 per minute, blood pressure 156/88, pulse ox 100% on room air. Cardiovascular system: First and second heart sounds are audible without any murmurs or gallops. Respiratory system: Bilateral lung air entry is good without any rales or rhonchi. Gastrointestinal system: Abdomen is soft and nontender on palpation. Normal bowel sounds are present. Musculoskeletal system: No deformities are present. DIAGNOSTIC DATA: No new lab data is there. ASSESSMENT AND PLAN: 1. Extended spectrum beta lactamase positive urinary tract infection that was initially treated with Invanz intravenously, but is now treated with Macrobid 100 mg orally twice daily for which today is day five. We intend to continue that for a full ten-day therapy. 2. Type 2 diabetes mellitus for which she will continue getting NPH insulin 12 units twice daily, along with regular insulin as per sliding scale. 3. Hypertension that is currently stable for which metoprolol 25 mg twice daily along with amlodipine 10 mg daily and losartan 100 mg daily will be continued. 4. Dementia with behavioral signs for which we will continue with Zyprexa 5 mg daily at bedtime, along with Seroquel 200 mg twice daily. She has also an order for Geodon to be given to her on as-needed basis for acute agitation. 5. Dyslipidemia for which we will continue with atorvastatin 40 mg daily at bedtime. 6. Venous thromboembolism prophylaxis will be provided with enoxaparin 30 mg subcutaneously every 24 hours. We are still awaiting her long term placement, and we will transfer her as soon as a bed is available. cc: Hernan Morelos MD
[2017-12-20] MEDS: LIPITOR PO SCH (22:08)
[2017-12-20] MEDS: ZYPREXA PO SCH (22:09)
[2017-12-21] MEDS: HUMULIN R (PARKWAY) SUBQ SCH ×4 (06:19→21:23)
[2017-12-21] MEDS: MACROBID PO SCH ×2 (08:37→21:24)
[2017-12-21] MEDS: NORVASC PO SCH (08:37)
[2017-12-21] MEDS: ASPIRIN PO SCH (08:37)
[2017-12-21] MEDS: COZAAR PO SCH (08:37)
[2017-12-21] MEDS: LOPRESSOR PO SCH ×2 (08:37→21:24)
[2017-12-21] MEDS: SEROQUEL PO SCH ×2 (08:37→21:24)
[2017-12-21] MEDS: HUMULIN N INSULIN (PARKWAY) SUBQ SCH ×2 (08:37→18:02)
--- NOTE | 2017-12-21 09:47 | PROGRESS NOTE ---
DATE: 12/21/2017 ATTENDING PHYSICIAN: Dr. Duong Ayala SUBJECTIVE: The patient is lying in bed and remains confused. She is also agitated at times. OBJECTIVE: Vital Signs: Temperature 97.9 degrees, pulse 78 per minute, respiratory rate 16 per minute. Blood pressure 162/73, pulse oximetry 100% on room air. Cardiovascular: First and second heart sounds are audible without any murmurs or gallops. Respiratory: Bilateral lung air entry is good without any rales or rhonchi. Gastrointestinal: Abdomen is soft and nontender on palpation. DIAGNOSTIC DATA: No new laboratories are done. IMPRESSION AND PLAN: 1. Extended spectrum beta lactamase positive E. coli urinary tract infection that was initially treated with Invanz intravenously, but is now treated with Macrobid 100 mg twice daily orally, for which today is day #6. We intend to continue the Macrobid for a 10-day therapy. 2. Type 2 diabetes mellitus for which she will continue getting NPH, although I have decreased the dose of NPH insulin to 60 units twice daily because of hypoglycemic episode that happened yesterday. She will continue with regular insulin as per sliding scale, however. 3. Hypertension. The patient does get elevated blood pressure, but that is secondary to agitation. Her blood pressure gets back to normal range when she is at rest. We will continue with metoprolol, along with amlodipine and losartan. 4. Dementia with behavioral signs, for which we will continue with Zyprexa 5 mg daily at bedtime, along with Seroquel 200 mg twice daily. She is also getting Geodon on as-needed basis for acute agitation. 5. Dyslipidemia, for which she will continue with atorvastatin 40 mg daily at bedtime. 6. Venous thromboembolism is being provided with enoxaparin subcutaneously. 7. We are still awaiting [facility] and we will transfer her there as soon as a bed is available. cc: Hernan Morelos MD
[2017-12-21] MEDS: LOVENOX SUBQ SCH (18:02)
[2017-12-21] MEDS: ZYPREXA PO SCH (21:24)
[2017-12-21] MEDS: LIPITOR PO SCH (21:24)
[2017-12-22] MEDS: HUMULIN R (PARKWAY) SUBQ SCH ×4 (07:03→22:53)
[2017-12-22] MEDS: HUMULIN N INSULIN (PARKWAY) SUBQ SCH ×2 (08:36→17:13)
[2017-12-22] MEDS: LOPRESSOR PO SCH ×2 (08:36→22:53)
[2017-12-22] MEDS: MACROBID PO SCH ×2 (08:36→22:54)
[2017-12-22] MEDS: NORVASC PO SCH (08:36)
[2017-12-22] MEDS: SEROQUEL PO SCH ×2 (08:36→22:54)
[2017-12-22] MEDS: COZAAR PO SCH (08:36)
[2017-12-22] MEDS: ASPIRIN PO SCH (08:36)
[2017-12-22] MEDS: LOVENOX SUBQ SCH (17:15)
[2017-12-22] MEDS: LIPITOR PO SCH (22:53)
[2017-12-22] MEDS: ZYPREXA PO SCH (22:54)
[2017-12-23] MEDS: HUMULIN R (PARKWAY) SUBQ SCH ×3 (07:14→16:33)
[2017-12-23] MEDS: MACROBID PO SCH ×2 (08:56→22:33)
[2017-12-23] MEDS: ASPIRIN PO SCH (08:56)
[2017-12-23] MEDS: COZAAR PO SCH (08:56)
[2017-12-23] MEDS: HUMULIN N INSULIN (PARKWAY) SUBQ SCH ×2 (08:56→16:33)
[2017-12-23] MEDS: LOPRESSOR PO SCH ×2 (08:56→22:32)
[2017-12-23] MEDS: SEROQUEL PO SCH ×2 (08:56→22:33)
[2017-12-23] MEDS: NORVASC PO SCH (08:56)
[2017-12-23] MEDS: LOVENOX SUBQ SCH (18:51)
[2017-12-23] MEDS: JANUVIA PO SCH (18:51)
--- NOTE | 2017-12-23 22:08 | PROGRESS NOTE ---
DATE: 12/23/2017 SUBJECTIVE: Patient without any new complaints. OBJECTIVE: Temperature 98.6 degrees, pulse 98, respiratory 18, BP 167/99 .General: Patient is awake, alert, currently in no distress lying in the bed. HEENT: Normocephalic. Neck: Supple. CV: Regular rate. Chest: Clear. Abdomen: Soft. Extremities: Moves all extremities. ASSESSMENT: 1. Hypertension . 2. Diabetes. 3. Extended beta lactamase positive Escherichia coli currently on Macrobid day 7 . 4. Dementia. 5. Dyslipidemia. PLAN: We will continue to follow her blood sugars, will add Januvia as she is actually starting to eat and starting having better oral intake. We will continue to follow her blood pressures and again we will adjust her medications as necessary. cc: Ricky Daley MD
[2017-12-23] MEDS: LIPITOR PO SCH (22:32)
[2017-12-23] MEDS: ZYPREXA PO SCH (22:33)
[2017-12-24] MEDS: NORCO-5 PO PRN (01:39)
[2017-12-24] MEDS: HUMULIN R (PARKWAY) SUBQ SCH ×5 (01:48→20:49)
[2017-12-24] MEDS: SEROQUEL PO SCH ×2 (08:52→20:32)
[2017-12-24] MEDS: JANUVIA PO SCH (08:53)
[2017-12-24] MEDS: MACROBID PO SCH ×2 (08:53→20:32)
[2017-12-24] MEDS: ASPIRIN PO SCH (08:53)
[2017-12-24] MEDS: NORVASC PO SCH (08:53)
[2017-12-24] MEDS: LOPRESSOR PO SCH ×2 (08:53→20:32)
[2017-12-24] MEDS: HUMULIN N INSULIN (PARKWAY) SUBQ SCH ×2 (08:54→17:31)
[2017-12-24] MEDS: LOVENOX SUBQ SCH (17:32)
[2017-12-24] MEDS: ZYPREXA PO SCH (20:32)
[2017-12-24] MEDS: LIPITOR PO SCH (20:32)
[2017-12-24] MEDS: CALMOSEPTINE OINTMENT TOP PRN (20:36)
--- NOTE | 2017-12-25 01:32 | PROGRESS NOTE ---
DATE: 12/24/2017 SUBJECTIVE: The patient has no new complaint. OBJECTIVE: Vital Signs: Temperature 97.4 degrees, pulse 81, respiratory 14, BP 140/82. General: Patient is awake, alert, currently in no distress. HEENT: Normocephalic. Neck: Supple. CARDIOVASCULAR: Regular rate. Chest: Clear. Extremities: Moves all extremities. ASSESSMENT: 1. Hypertension. 2. Diabetes. 3. Extended beta lactamase positive Escherichia coli. Currently on Macrobid. We will follow and recheck. We will stop Macrobid at this point. 4. Dementia. 5. Dyslipidemia. PLAN: As noted, we will recheck urinalysis. We will stop Macrobid. We will continue Januvia. Continue to follow blood sugars and blood pressures. cc: Ricky Daley MD
[2017-12-25] MEDS: HUMULIN R (PARKWAY) SUBQ SCH ×4 (06:41→21:08)
[2017-12-25] MEDS: NORVASC PO SCH (08:56)
[2017-12-25] MEDS: JANUVIA PO SCH (08:56)
[2017-12-25] MEDS: LOPRESSOR PO SCH ×2 (08:56→21:03)
[2017-12-25] MEDS: SEROQUEL PO SCH ×2 (08:56→21:03)
[2017-12-25] MEDS: ASPIRIN PO SCH (08:57)
[2017-12-25] MEDS: HUMULIN N INSULIN (PARKWAY) SUBQ SCH ×2 (08:59→18:50)
[2017-12-25] MEDS: MACROBID PO SCH ×2 (09:00→21:03)
[2017-12-25 17:14] LABS: BASO# 0.04 X1000 (0.0-0.2); BASO% 0.5 % (0.0-0.8); EOS# 0.15 X1000 (0.0-0.7); EOS% 1.8 % (0.0-10.0); HEMATOCRIT 36.9 % (37.0-47.0); HEMOGLOBIN 11.8 g/dL (12.0-16.0); IMM GRAN# 0.05 X1000 (0.0-0.04); IMM GRAN% 0.6 % (0.0-0.5); LYMPH# 1.11 X1000 (1.2-3.4); LYMPH% 13.5 % (20.5-51.1); MCH 29.1 PG (27-31); MCV 90.9 FL (81-99); MONO% 8.5 % (1.7-9.3); NEUT% 75.1 % (42.2-75.2); PLT 232 X1000 (130-400); RBC 4.06 XMIL (4.2-5.4); WBC 8.25 X1000 (4.8-10.8)
--- NOTE | 2017-12-25 17:21 | EKG Report ---
Test Performed on : 12/25/2017 4:36:11 PM Test Reason : change in status Blood Pressure : / mmHG Vent. Rate : 065 BPM Atrial Rate : 065 BPM P-R Int : 106 ms QRS Dur : 096 ms QT Int : 442 ms P-R-T Axes : 020 -49 069 degrees QTc Int : 459 ms Sinus rhythm. with short [place] Left axis deviation Abnormal ECG When compared with ECG of 14-NOV-2017 14:55, (Unconfirmed) No significant change was found Confirmed by Duong Kearney MD ([id number]) on 01/10/2018 11:13:54 AM
[2017-12-25 17:32] LABS: AGAP 9; ALKALINE PHOSPHATASE 92 U/L (32-104); BUN 15 mg/dL (8-22); CALCIUM 9.1 mg/dL (8.8-10.2); CHLORIDE 108 mmol/L (98-107); COSMO 294; CREATININE 0.6 mg/dL (0.5-0.9); ESTIMATED GFR > 60; GLUCOSE 253 mg/dL (70-104); GOT 17 U/L (10-30); GPT 21 U/L (10-36); POTASSIUM 3.8 mmol/L (3.5-5.1); SODIUM 143 mmol/L (136-145); TCO2 27 mmol/L (25-35); TOTAL PROTEIN 5.8 g/dL (6.3-8.3)
[2017-12-25 17:48] LABS: ACETONE SERUM NEGATIVE (NEGATIVE)
[2017-12-25 17:56] LABS: CK PROFILE 74 U/L (24-173)
[2017-12-25 18:19] LABS: URINE SOURCE CATH
[2017-12-25 18:38] LABS: BILIRUBIN URINE NEGATIVE (NEGATIVE); BLOOD URINE NEGATIVE (NEGATIVE); KETONE URINE NEGATIVE (NEGATIVE); LEUKOCYTES URINE NEGATIVE (NEGATIVE); NITRITE URINE NEGATIVE (NEGATIVE); PROTEIN URINE 1+(30 mg/dL) mg/dL (NEGATIVE); SP GRAVITY URINE 1.005; UROBILINOGEN URINE NORMAL
[2017-12-25 18:39] LABS: CLARITY CLEAR (CLEAR); COLOR YELLOW
[2017-12-25] MEDS: LOVENOX SUBQ SCH (18:42)
[2017-12-25 18:45] LABS: URINE WBC <10 /HPF (<10)
[2017-12-25 18:46] LABS: URINE BACTERIA 1+ /HFP; URINE CAST NONE SEEN /LPF; URINE CRYSTAL NONE SEEN /HPF; URINE EPITHELIAL CELLS <10 /HPF (<10); URINE YEAST NONE SEEN /HPF
[2017-12-25] MEDS: LIPITOR PO SCH (21:03)
[2017-12-25] MEDS: ZYPREXA PO SCH (21:08)
--- NOTE | 2017-12-25 23:20 | PROGRESS NOTE ---
DATE: 12/25/2017 SUBJECTIVE: Patient this morning was much more awake and alert. This afternoon, she initially appears to be sedated. However, when you remove the covers she puts them back. Then she finally said stop and leave me alone. PHYSICAL EXAMINATION: Vital Signs: Temperature 97.6 degrees, pulse 73, respiratory rate 18, BP 157/69. General: Patient is awake, alert. She is currently in no distress. She will respond to commands when she wants to. HEENT: Normocephalic, atraumatic. Neck: Supple. CARDIOVASCULAR: Regular rate. Chest: Clear. Abdomen: Soft and nondistended. Extremities: Moves all extremities. ASSESSMENT: 1. Hypertension, stable. 2. Extended beta lactamase positive Escherichia coli. We will stop her Macrobid. 3. Diabetes. 4. Dementia. 5. Dyslipidemia. PLAN: Continue patient in the hospital. Continue to control her blood sugars. Further orders as needed. cc: Ricky Daley MD
[2017-12-26] MEDS: HUMULIN R (PARKWAY) SUBQ SCH ×4 (06:05→21:02)
[2017-12-26] MEDS: JANUVIA PO SCH (08:48)
[2017-12-26] MEDS: SEROQUEL PO SCH ×2 (08:49→21:02)
[2017-12-26] MEDS: NORVASC PO SCH (08:50)
[2017-12-26] MEDS: HUMULIN N INSULIN (PARKWAY) SUBQ SCH ×2 (08:51→16:24)
[2017-12-26] MEDS: LOPRESSOR PO SCH ×2 (09:05→21:01)
[2017-12-26] MEDS: ASPIRIN PO SCH (09:05)
[2017-12-26] MEDS: LOVENOX SUBQ SCH (18:01)
[2017-12-26] MEDS: LIPITOR PO SCH (21:01)
[2017-12-26] MEDS: ZYPREXA PO SCH (21:01)
--- NOTE | 2017-12-26 21:48 | PROGRESS NOTE ---
DATE: 12/26/2017 SUBJECTIVE: Patient today is alert and oriented. She appears back to her baseline. Certainly feel as though her decreased cognition last night was more intentional as even though she would not respond to questions or answer commands when the covers were pulled off her she would quickly pull them back up [*] Today she is sitting in the bed being fed breakfast and denies any complaints. PHYSICAL: Temperature 97.6 degrees, pulse 74, respiratory 20, BP 149/71.General: Patient is awake, alert, currently she is in no distress. HEENT: Normocephalic, atraumatic. Neck: Supple. No JVD. CV: Regular rate. Chest: Clear. Abdomen: Soft. Extremities: Moves all extremities. Neuro: No changes. ASSESSMENT: 1. Hypertension, blood pressures are better today at 149/77. 2. Diabetes, blood sugars remain difficult to control as Ms. Bajwa will go through periods where she eats and then go a day or 2 where she does not eat much of anything. 3. Recent urinary tract infection, we have recultured her urine and this is pending. 4. Dementia. PLAN: Will continue patient in the hospital until which time adequate discharge planning can be made. Will continue to follow, further orders as needed. cc: Ricky Daley MD
[2017-12-26] MEDS: NORCO-5 PO PRN (22:41)
[2017-12-27] MEDS: HUMULIN R (PARKWAY) SUBQ SCH ×4 (06:29→22:31)
[2017-12-27] MEDS: ASPIRIN PO SCH (09:34)
[2017-12-27] MEDS: SEROQUEL PO SCH ×2 (09:34→22:26)
[2017-12-27] MEDS: LOPRESSOR PO SCH ×2 (09:34→22:27)
[2017-12-27] MEDS: JANUVIA PO SCH (09:34)
[2017-12-27] MEDS: NORVASC PO SCH (09:34)
[2017-12-27] MEDS: HUMULIN N INSULIN (PARKWAY) SUBQ SCH ×2 (09:40→17:45)
[2017-12-27] MEDS: PRINIVIL PO SCH ×2 (17:43→22:26)
[2017-12-27] MEDS: LOVENOX SUBQ SCH (17:47)
--- NOTE | 2017-12-27 19:29 | PROGRESS NOTE ---
DATE: 12/27/2017 SUBJECTIVE: Patient has no new complaints today. She actually was up in a wheelchair sitting at the nurses station yesterday. PHYSICAL: Temperature 97.6, pulse 74, respiratory 20, BP 149/77.General: Patient is awake, alert, she is in no respiratory distress, she is currently eating breakfast. HEENT: Normocephalic. Neck: Supple. CV: Regular rate. Chest: Clear. Abdomen: Soft. Extremities: Moves all extremities. Neuro: No focal changes from previous exams. ASSESSMENT: 1. Diabetes, her blood sugars continue to be somewhat problematic. This has somewhat due to her very erratic eating habits as some days she will not eat at all and then her blood sugars drop other days she eats twice the amount of food and her blood sugars elevated. We will try Victoza unfortunately we have to crush her medications which certainly makes some of the oral medications more difficult to use. 2. Dementia. 3. Dyslipidemia . 4. Hypertension. PLAN: Will continue as noted above, continue to treat her blood sugars, continue inpatient therapy until which time further outpatient arrangements can be made. cc: Ricky Daley MD
[2017-12-27] MEDS: LIPITOR PO SCH (22:26)
[2017-12-27] MEDS: ZYPREXA PO SCH (22:27)
[2017-12-28] MEDS: HUMULIN R (PARKWAY) SUBQ SCH ×4 (06:40→20:40)
[2017-12-28] MEDS: SEROQUEL PO SCH ×2 (09:18→20:18)
[2017-12-28] MEDS: HUMULIN N INSULIN (PARKWAY) SUBQ SCH ×2 (09:18→17:18)
[2017-12-28] MEDS: NORVASC PO SCH (09:18)
[2017-12-28] MEDS: ASPIRIN PO SCH (09:19)
[2017-12-28] MEDS: LOPRESSOR PO SCH ×2 (09:19→20:18)
[2017-12-28] MEDS: PRINIVIL PO SCH ×2 (09:19→20:18)
[2017-12-28] MEDS: JANUVIA PO SCH (09:19)
--- NOTE | 2017-12-28 13:59 | PROGRESS NOTE ---
DATE: 12/28/2017 SUBJECTIVE: Patient has no complaints. PHYSICAL: Temperature 98.1 degrees, pulse 78, respiratory 17, BP 149/60.General: Patient is awake, alert, currently in no distress. HEENT: Normocephalic, atraumatic. Neck: Supple, no JVD. CV: Regular rate. Chest: Clear nonlabored. Abdomen: Soft, nondistended. ASSESSMENT: 1. Diabetes . Her blood sugars are frequently erratic, this is somewhat due to her erratic eating habits. We will start her on Victoza, decrease her NPH and see how this affects her blood sugars. 2. Hypertension. 3. Dementia. 4. Dyslipidemia . 5. Adult failure to thrive. PLAN: Hopefully patient can be transitioned to rehab soon, we will continue to follow, continue current measures. cc: Ricky Daley MD
[2017-12-28] MEDS: LOVENOX SUBQ SCH (17:18)
[2017-12-28] MEDS: ZYPREXA PO SCH (20:18)
[2017-12-28] MEDS: LIPITOR PO SCH (20:18)
[2017-12-29] MEDS: HUMULIN R (PARKWAY) SUBQ SCH ×4 (06:19→21:52)
[2017-12-29] MEDS: VICTOZA SUBQ SCH (09:41)
[2017-12-29] MEDS: HUMULIN N INSULIN (PARKWAY) SUBQ SCH ×2 (09:41→17:42)
[2017-12-29] MEDS: LOPRESSOR PO SCH ×2 (09:42→21:52)
[2017-12-29] MEDS: SEROQUEL PO SCH ×2 (09:42→21:52)
[2017-12-29] MEDS: ASPIRIN PO SCH (09:42)
[2017-12-29] MEDS: JANUVIA PO SCH (09:42)
[2017-12-29] MEDS: PRINIVIL PO SCH ×2 (09:42→21:52)
[2017-12-29] MEDS: NORVASC PO SCH (09:42)
[2017-12-29] MEDS: LOVENOX SUBQ SCH (18:38)
--- NOTE | 2017-12-29 20:48 | PROGRESS NOTE ---
DATE: 12/29/2017 SUBJECTIVE: The patient with no new complaints. OBJECTIVE: Vital Signs: Reviewed. Temperature 98 degrees, pulse of 77, respiratory rate 16, blood pressure 154/65. General: Patient is awake and alert. She is in no distress. HEENT: Normocephalic. Neck: Supple. CARDIOVASCULAR: Regular rate. Chest: Clear. Abdomen: Soft. Extremities: Moves all extremities. ASSESSMENT: 1. Hypertension. 2. Diabetes. We will add Victoza today to her Januvia and see if this will help. 3. Dementia. 4. Dyslipidemia. PLAN: Continue treatment for blood pressure and her blood sugar and will follow. cc: Ricky Daley MD
[2017-12-29] MEDS: LIPITOR PO SCH (21:52)
[2017-12-29] MEDS: ZYPREXA PO SCH (21:52)
[2017-12-30] MEDS: HUMULIN R (PARKWAY) SUBQ SCH ×3 (06:53→20:03)
[2017-12-30] MEDS: VICTOZA SUBQ SCH (09:30)
[2017-12-30] MEDS: HUMULIN N INSULIN (PARKWAY) SUBQ SCH ×2 (09:30→17:09)
[2017-12-30] MEDS: JANUVIA PO SCH (16:50)
[2017-12-30] MEDS: ASPIRIN PO SCH (16:50)
[2017-12-30] MEDS: NORVASC PO SCH (16:51)
[2017-12-30] MEDS: LOPRESSOR PO SCH ×3 (16:51→20:03)
[2017-12-30] MEDS: PRINIVIL PO SCH ×3 (16:51→20:03)
[2017-12-30] MEDS: SEROQUEL PO SCH ×3 (16:52→20:03)
[2017-12-30] MEDS: LOVENOX SUBQ SCH (18:06)
[2017-12-30] MEDS: ZYPREXA PO SCH ×2 (19:52→20:03)
[2017-12-30] MEDS: LIPITOR PO SCH ×2 (19:52→20:03)
[2017-12-30] MEDS: BASAGLAR SUBQ SCH (20:03)
--- NOTE | 2017-12-30 20:44 | PROGRESS NOTE ---
DATE: 12/30/2017 SUBJECTIVE: The patient has no focal complaints. OBJECTIVE: Vital Signs: Blood pressure is 146/65, heart rate of 72. Cardiovascular: Regular rate and rhythm. Pulmonary: Bilateral breath sounds clear to auscultation. Gastrointestinal: Soft, nontender, nondistended. Bowel sounds are positive. PROBLEM LIST: 1. Sugars are still 300s. She has not bottomed out. She did have a low blood sugar on the 15th, but titrated down on her NPH and now she is on Victoza and Januvia. Still not controlled, but at least she is not bottoming out. I am going to switch her back to the Lantus just at 5 daily and continue the Victoza and Januvia. 2. Dementia, appears to be well-controlled. We are still waiting on placement. She is now [facility]. Family essentially abandoned her. She does apparently have a power of [place] [place], but he is not willing to process her paperwork going forward and he is out of state, so we are waiting on, I think, [employer] to decide about becoming a [facility]. cc: Zachery Bill MD
[2017-12-31] MEDS: HUMULIN R (PARKWAY) SUBQ SCH ×4 (06:13→21:20)
[2017-12-31] MEDS: VICTOZA SUBQ SCH (11:09)
[2017-12-31] MEDS: SEROQUEL PO SCH ×2 (11:11→21:21)
[2017-12-31] MEDS: PRINIVIL PO SCH ×2 (11:11→21:22)
[2017-12-31] MEDS: JANUVIA PO SCH (11:11)
[2017-12-31] MEDS: LOPRESSOR PO SCH ×2 (11:12→21:22)
[2017-12-31] MEDS: NORVASC PO SCH (11:12)
[2017-12-31] MEDS: ASPIRIN PO SCH (11:12)
[2017-12-31] MEDS: LOVENOX SUBQ SCH (18:14)
--- NOTE | 2017-12-31 20:26 | PROGRESS NOTE ---
DATE: 12/31/2017 SUBJECTIVE: The patient has no focal complaints. OBJECTIVE: Vital Signs: Blood pressure 133/55, heart rate 86, respiratory rate 18, temperature 98.4 degrees, 100% on room air. Cardiovascular: Regular rate and rhythm. Pulmonary: Bilateral breath sounds clear to auscultation. Gastrointestinal: Soft, nontender, nondistended. Bowel sounds are positive. ASSESSMENT AND PLAN: 1. Diabetes. She appears to be doing a bit better. I did go up a little bit on her Lantus. She has not bottomed out. She is on Victoza. She is on Januvia. I guess we could try to bump up her Victoza a little bit to see if that may help. We have increased her Lantus in the past and it has led to some episodic hypoglycemia. 2. Dementia with behavioral issues, stable currently. She is pleasantly confused. 3. Disposition. She is [facility] in the short term. We will continue to follow closely. cc: Zachery Bill MD
[2017-12-31] MEDS: BASAGLAR SUBQ SCH (21:20)
[2017-12-31] MEDS: ZYPREXA PO SCH (21:21)
[2017-12-31] MEDS: LIPITOR PO SCH (21:21)
[2018-01-01] MEDS: HUMULIN R (PARKWAY) SUBQ SCH ×4 (06:41→21:18)
[2018-01-01] MEDS: LOPRESSOR PO SCH ×2 (10:27→21:17)
[2018-01-01] MEDS: JANUVIA PO SCH (10:27)
[2018-01-01] MEDS: PRINIVIL PO SCH ×2 (10:27→21:17)
[2018-01-01] MEDS: ASPIRIN PO SCH (10:27)
[2018-01-01] MEDS: SEROQUEL PO SCH ×2 (10:27→21:17)
[2018-01-01] MEDS: NORVASC PO SCH (10:28)
[2018-01-01] MEDS: LOVENOX SUBQ SCH (17:16)
--- NOTE | 2018-01-01 19:46 | PROGRESS NOTE ---
DATE: 01/01/2018 SUBJECTIVE: The patient has no focal complaints. OBJECTIVE: Vital Signs: Blood pressure is 145/69, heart rate 90, respiratory rate 18, temperature 98.7 degrees. Cardiovascular: Regular rate and rhythm. Pulmonary: Bilateral breath sounds clear to auscultation. Gastrointestinal: Soft, nontender, nondistended. Bowel sounds are positive. LABORATORY DATA: I do not have any data today although her sugars are still running in the 300s, but she is eating well. She seems pleasantly confused. I am going to go up a little bit more on her Victoza, go to 1.8 daily. PROBLEM LIST: 1. Dementia with delirium, appears stable. 2. Diabetes. We will adjust her Victoza and follow. DISPOSITION: Pending her clinical status. Will continue to follow. cc: Zachery Bill MD
[2018-01-01] MEDS: BASAGLAR SUBQ SCH (21:16)
[2018-01-01] MEDS: ZYPREXA PO SCH (21:17)
[2018-01-01] MEDS: LIPITOR PO SCH (21:17)
[2018-01-02] MEDS: HUMULIN R (PARKWAY) SUBQ SCH ×4 (06:40→21:18)
[2018-01-02] MEDS: LOPRESSOR PO SCH (11:13)
[2018-01-02] MEDS: PRINIVIL PO SCH (11:13)
[2018-01-02] MEDS: NORVASC PO SCH (11:13)
[2018-01-02] MEDS: SEROQUEL PO SCH (11:13)
[2018-01-02] MEDS: JANUVIA PO SCH (11:13)
[2018-01-02] MEDS: ASPIRIN PO SCH (11:13)
[2018-01-02] MEDS: VICTOZA SUBQ SCH (11:14)
[2018-01-02] MEDS: LOVENOX SUBQ SCH ×2 (17:07→20:12)
[2018-01-03] MEDS: LIPITOR PO SCH ×2 (03:39→21:59)
[2018-01-03] MEDS: ZYPREXA PO SCH ×2 (03:39→21:59)
[2018-01-03] MEDS: SEROQUEL PO SCH ×3 (03:39→21:59)
[2018-01-03] MEDS: LOPRESSOR PO SCH ×3 (03:39→21:59)
[2018-01-03] MEDS: PRINIVIL PO SCH ×3 (03:39→21:59)
[2018-01-03] MEDS: HUMULIN R (PARKWAY) SUBQ SCH ×4 (06:06→21:58)
[2018-01-03] MEDS: ASPIRIN PO SCH (10:58)
[2018-01-03] MEDS: NORVASC PO SCH (10:58)
[2018-01-03] MEDS: JANUVIA PO SCH (10:58)
[2018-01-03] MEDS: VICTOZA SUBQ SCH (10:59)
--- NOTE | 2018-01-03 14:38 | PROGRESS NOTE ---
DATE: 01/02/2018 SUBJECTIVE: The patient is resting. No major complaints. She wakes up and looks at you. OBJECTIVE: Vital Signs: Blood pressure 177/80, heart rate of 80, respiratory rate 18, temperature 97.8, 98% on room air. Cardiovascular: Regular rate and rhythm. Pulmonary: Bilateral breath sounds. Clear to auscultation. GI: Soft, nontender, nondistended. Bowel sounds are positive. LABORATORY DATA: Unremarkable, except her glucoses are still in the 300s. PROBLEM LIST: 1. Dementia with behavioral issues. She seems to be doing okay. Continue medications. 2. Diabetes, still not well controlled. I have gone up on her Lantus. She is on Victoza. She is on Januvia and still not really well controlled. 3. Hypertension. She is on increased dose. She is on amlodipine and lisinopril, but not on maximum dose. We may be able to titrate up a little bit. I am going to monitor. DISPOSITION: Pending her clinical status. cc: Zachery Bill MD
[2018-01-03] MEDS: LOVENOX SUBQ SCH (18:38)
--- NOTE | 2018-01-03 20:23 | PROGRESS NOTE ---
DATE: 01/03/2018 SUBJECTIVE: Patient has no focal complaints. OBJECTIVE: Blood pressure 168/80, heart rate 97, respiratory rate 18, temperature 98.4 degrees, 97% on room air.Cardiovascular: Regular rate and rhythm. Pulmonary: Bilateral breath sounds clear to auscultation. Gastrointestinal: Soft, nontender. PROBLEM LIST: 1. Dementia. She seems to be doing okay. Nursing staff was nice enough to put her in a wheelchair and get her around a little bit. 2. Diabetes. We finally have some blood sugars in the 200s, one blood sugar even below 200, at 180, so I do think the measures are improving. I hesitate, but I think I will bump up her Lantus to 10. She is on Victoza and Januvia, so we are doing better, improved. DISPOSITION: We are still waiting for really a resolution to her ordeal. The issue is essentially she really just has no family to pursue power of trial attorney and long-term placement, and her family is out of state and they are basically not involved in trying to care for her, but then does not leave us a lot of options for long-term care for her, so a bit difficult situation. cc: Zachery Bill MD
[2018-01-04] MEDS: HUMULIN R (PARKWAY) SUBQ SCH ×4 (06:27→21:15)
[2018-01-04] MEDS: VICTOZA SUBQ SCH (11:58)
[2018-01-04] MEDS: JANUVIA PO SCH (11:59)
[2018-01-04] MEDS: PRINIVIL PO SCH ×2 (11:59→21:16)
[2018-01-04] MEDS: NORVASC PO SCH (11:59)
[2018-01-04] MEDS: SEROQUEL PO SCH ×2 (11:59→21:16)
[2018-01-04] MEDS: LOPRESSOR PO SCH ×2 (11:59→21:16)
[2018-01-04] MEDS: ASPIRIN PO SCH (11:59)
--- NOTE | 2018-01-04 18:23 | PROGRESS NOTE ---
DATE: 01/04/2018 She seems to be doing okay. No major concerns, her sugars are starting to go back up again .Vital signs: Blood pressure is 170/82, heart rate 89, respiratory 18, temperature 98.3 degrees 97% on room air. Cardiovascular: Regular rate and rhythm. Pulmonary: Bilateral breath sounds. Clear to auscultation. GI: Soft, nontender. Other than that she has no real problems. Blood pressure 170/82, heart rate 89, respiratory 18, temperature 98.3 degrees, 97% on room air. Her sugars have been 200s and 300s and now they are up in 400s again. PROBLEMS: 1. Dementia, she is a stable on her multiple psych medications. 2. Diabetes is still not very well controlled. She is on Victoza, she is on Januvia and she is on glargine. I am going to bump her up to 12 and see how she does. 3. Disposition. We are waiting on R guardianship and subsequently placement. Hopefully that will happen this year and we are going to continue to follow. cc: Zachery Bill MD
[2018-01-04] MEDS: LOVENOX SUBQ SCH (18:32)
[2018-01-04] MEDS: BASAGLAR SUBQ SCH (21:15)
[2018-01-04] MEDS: LIPITOR PO SCH (21:16)
[2018-01-05] MEDS: BENADRYL IM PRN (02:46)
[2018-01-05] MEDS: HUMULIN R (PARKWAY) SUBQ SCH ×5 (05:39→21:44)
[2018-01-05] MEDS: ASPIRIN PO SCH (08:01)
[2018-01-05] MEDS: PRINIVIL PO SCH ×2 (08:01→21:40)
[2018-01-05] MEDS: SEROQUEL PO SCH ×2 (08:01→21:39)
[2018-01-05] MEDS: NORVASC PO SCH (08:01)
[2018-01-05] MEDS: LOPRESSOR PO SCH ×2 (08:01→21:39)
[2018-01-05] MEDS: JANUVIA PO SCH (08:01)
[2018-01-05] MEDS: VICTOZA SUBQ SCH (11:19)
[2018-01-05] MEDS: LOVENOX SUBQ SCH (17:42)
--- NOTE | 2018-01-05 20:52 | PROGRESS NOTE ---
DATE: 01/05/2018 SUBJECTIVE: Per covering nursing staff she got a little agitated last night. She got Levaquin and Ativan and now she is very confused so in any case little concerned about those medications but vital signs her blood pressure is 156/83, heart rate of 83, respiratory 18, temperature 97.8 degrees 100% on room air. Cardiovascular: Regular rate and rhythm. Pulmonary: Bilateral breath sounds. Clear to auscultation. GI: Soft, nontender, nondistended. Bowel sounds are positive. LABORATORY DATA: Sugars have been 200s to 300s, continue to follow. PROBLEM LIST: 1. Dementia. I am going to hold Benadryl, we probably should not be using that in an 82-year-old in any case, she is on Seroquel and Zyprexa probably should use maybe different medications from that standpoint. 2. Diabetes is poorly controlled but improving, she is on glargine, glipizide, Victoza and Januvia. DISPOSITION: Pending her clinical status. We are waiting for guardianship and things of that nature for long-term placement. cc: Zachery Bill MD
[2018-01-05] MEDS: LIPITOR PO SCH (21:39)
[2018-01-05] MEDS: BASAGLAR SUBQ SCH (21:45)
[2018-01-06] MEDS: HUMULIN R (PARKWAY) SUBQ SCH ×5 (06:32→18:26)
[2018-01-06] MEDS: ASPIRIN PO SCH (10:50)
[2018-01-06] MEDS: JANUVIA PO SCH (10:51)
[2018-01-06] MEDS: SEROQUEL PO SCH ×2 (10:51→21:59)
[2018-01-06] MEDS: NORVASC PO SCH (10:51)
[2018-01-06] MEDS: LOPRESSOR PO SCH ×2 (10:52→21:59)
[2018-01-06] MEDS: PRINIVIL PO SCH ×2 (10:52→22:00)
[2018-01-06] MEDS: VICTOZA SUBQ SCH (10:52)
[2018-01-06] MEDS: LOVENOX SUBQ SCH (18:25)
[2018-01-06] MEDS: LIPITOR PO SCH (21:59)
[2018-01-06] MEDS: BASAGLAR SUBQ SCH (22:00)
--- NOTE | 2018-01-06 22:49 | PROGRESS NOTE ---
DATE: 01/06/2018 SUBJECTIVE: Patient has no complaints. PHYSICAL: Vital signs reviewed and stable. She is awake, alert she is in no distress.HEENT: Normocephalic. Neck: Supple. CV: Regular rate. Chest: Clear. Abdomen: Soft. Extremities: Moves all extremities. ASSESSMENT: Diabetes . At this point will stop her glipizide as it is not being effective enough and she has been having issues with hypoglycemia will increase her Lantus to 15 units and will continue Victoza and Januvia and follow. cc: Ricky Daley MD
[2018-01-07] MEDS: HUMULIN R (PARKWAY) SUBQ SCH ×5 (01:51→22:08)
[2018-01-07] MEDS: VICTOZA SUBQ SCH (08:43)
[2018-01-07] MEDS: NORVASC PO SCH (08:44)
[2018-01-07] MEDS: PRINIVIL PO SCH ×2 (08:44→23:08)
[2018-01-07] MEDS: SEROQUEL PO SCH ×2 (08:44→23:08)
[2018-01-07] MEDS: ASPIRIN PO SCH (08:44)
[2018-01-07] MEDS: JANUVIA PO SCH (08:44)
[2018-01-07] MEDS: LOPRESSOR PO SCH ×2 (08:44→23:08)
[2018-01-07] MEDS: NORCO-5 PO PRN (12:16)
[2018-01-07] MEDS: ATIVAN PO PRN (13:20)
[2018-01-07] MEDS: LOVENOX SUBQ SCH (18:05)
--- NOTE | 2018-01-07 21:09 | PROGRESS NOTE ---
DATE: 01/07/2018 SUBJECTIVE: Patient has no new complaints. OBJECTIVE: Vital Signs: Temperature 97.9 degrees, pulse 97, respiratory rate 21, blood pressure 141/56. General: Patient is awake. She is lying in bed. She is alert. She is in no distress. HEENT: Normocephalic. Neck: Supple. CARDIOVASCULAR: Regular rate. Chest: Clear. Abdomen: Soft. Extremities: Moves all extremities. ASSESSMENT: 1. Dementia. 2. Diabetes. 3. Hypertension. PLAN: Will continue to follow her blood sugars, continue to follow her blood pressures, and hopefully eventually she can transition to a more suitable living environment than the hospital. cc: Ricky Daley MD
[2018-01-07] MEDS: BASAGLAR SUBQ SCH (22:07)
[2018-01-07] MEDS: LIPITOR PO SCH (23:08)
[2018-01-08] MEDS: NORCO-5 PO PRN (03:26)
[2018-01-08] MEDS: ATIVAN PO PRN (03:26)
[2018-01-08] MEDS: HUMULIN R (PARKWAY) SUBQ SCH ×4 (06:29→20:59)
[2018-01-08] MEDS: VICTOZA SUBQ SCH (13:29)
[2018-01-08] MEDS: JANUVIA PO SCH (13:30)
[2018-01-08] MEDS: PRINIVIL PO SCH ×2 (13:30→20:58)
[2018-01-08] MEDS: NORVASC PO SCH (13:30)
[2018-01-08] MEDS: SEROQUEL PO SCH ×2 (13:30→20:58)
[2018-01-08] MEDS: LOPRESSOR PO SCH ×2 (13:30→20:58)
[2018-01-08] MEDS: ASPIRIN PO SCH (13:30)
[2018-01-08] MEDS: LOVENOX SUBQ SCH (18:01)
[2018-01-08] MEDS: LIPITOR PO SCH (20:58)
[2018-01-08] MEDS: BASAGLAR SUBQ SCH (20:59)
--- NOTE | 2018-01-09 00:26 | PROGRESS NOTE ---
DATE: 01/08/2018 SUBJECTIVE: Patient has no complaints. PHYSICAL EXAMINATION: Vital Signs: Reviewed and stable. Temperature 98.6 degrees, pulse 88, respiratory 18, BP 105/67 to 187/82. General: Patient is lying in the bed. She is in no distress. ASSESSMENT: 1. Dementia. 2. Diabetes. 3. Hypertension. PLAN: We will continue patient in the hospital. Continue to follow. Further orders as needed. cc: Ricky Daley MD
[2018-01-09] MEDS: ATIVAN PO PRN (01:20)
[2018-01-09] MEDS: HUMULIN R (PARKWAY) SUBQ SCH ×4 (06:46→21:33)
[2018-01-09] MEDS: ASPIRIN PO SCH (10:30)
[2018-01-09] MEDS: SEROQUEL PO SCH ×2 (10:30→21:32)
[2018-01-09] MEDS: JANUVIA PO SCH (10:31)
[2018-01-09] MEDS: LOPRESSOR PO SCH ×2 (10:31→21:32)
[2018-01-09] MEDS: PRINIVIL PO SCH ×2 (10:31→21:32)
[2018-01-09] MEDS: NORVASC PO SCH (10:31)
[2018-01-09] MEDS: VICTOZA SUBQ SCH (10:50)
[2018-01-09] MEDS: LOVENOX SUBQ SCH (17:50)
--- NOTE | 2018-01-09 19:11 | PROGRESS NOTE ---
DATE: 01/09/2018 SUBJECTIVE: Patient has no complaints . PHYSICAL: Vital signs stable no changes. Her physical EXAM is unchanged. ASSESSMENT: 1. Dementia. 2. Diabetes 3. Hypertension. PLAN: Will continue to support her in the hospital until which time a more suitable long-term arrangement can be made. cc: Ricky Daley MD
[2018-01-09] MEDS: LIPITOR PO SCH (21:32)
[2018-01-09] MEDS: BASAGLAR SUBQ SCH (21:38)
[2018-01-10] MEDS: HUMULIN R (PARKWAY) SUBQ SCH ×3 (06:27→17:54)
[2018-01-10] MEDS: ASPIRIN PO SCH (10:33)
[2018-01-10] MEDS: NORVASC PO SCH (10:34)
[2018-01-10] MEDS: PRINIVIL PO SCH ×2 (10:34→23:43)
[2018-01-10] MEDS: SEROQUEL PO SCH ×2 (10:34→23:43)
[2018-01-10] MEDS: JANUVIA PO SCH (10:34)
[2018-01-10] MEDS: VICTOZA SUBQ SCH (10:34)
[2018-01-10] MEDS: LOPRESSOR PO SCH ×2 (10:34→23:43)
--- NOTE | 2018-01-10 16:25 | PROGRESS NOTE ---
DATE: 01/10/2018 SUBJECTIVE: Patient has no new complaints. PHYSICAL: Vital Signs: Temperature 93, pulse 80, respiratory 20, BP 155/63. General: Patient is awake. She is in no distress. Neck: Supple. CARDIOVASCULAR: Regular rate. No murmurs. Chest: Clear. Nonlabored. Abdomen: Soft, nondistended. Extremities: Moves all extremities. ASSESSMENT: 1. Diabetes. Blood sugar remains elevated. We will increase her Lantus to 18 units. 2. Dementia. 3. Adult failure to thrive. 4. Hypertension. Currently, she is stable. Blood pressures and blood sugars are improving. Blood sugars are still problematic as some days she does not eat at all. They seem to have improved after stopping her glipizide. She has not had any hypoglycemic episodes. We will continue. cc: Ricky Daley MD
[2018-01-10] MEDS: LOVENOX SUBQ SCH (17:54)
[2018-01-10] MEDS: LIPITOR PO SCH (23:42)
[2018-01-11] MEDS: HUMULIN R (PARKWAY) SUBQ SCH ×5 (01:09→20:07)
[2018-01-11] MEDS: NORVASC PO SCH (11:05)
[2018-01-11] MEDS: LOPRESSOR PO SCH ×2 (11:05→20:08)
[2018-01-11] MEDS: SEROQUEL PO SCH ×2 (11:05→20:08)
[2018-01-11] MEDS: ASPIRIN PO SCH (11:05)
[2018-01-11] MEDS: PRINIVIL PO SCH ×2 (11:05→20:08)
[2018-01-11] MEDS: JANUVIA PO SCH (11:05)
[2018-01-11] MEDS: VICTOZA SUBQ SCH (11:06)
[2018-01-11] MEDS: LOVENOX SUBQ SCH (17:55)
--- NOTE | 2018-01-11 20:00 | PROGRESS NOTE ---
DATE: 01/11/2018 SUBJECTIVE: Patient with no complaints. Notes that she ate breakfast this morning. Denies any current pains. PHYSICAL EXAMINATION: Vital Signs: Temp 97.8, pulse 86, respirations 18, BP 166/73. General: Patient is awake, alert. She is lying in the bed. She did tolerate breakfast very well. HEENT: Normocephalic. Neck: Supple. Cardiovascular: Regular rate. Chest: Clear. Abdomen: Soft. ASSESSMENT: 1. Diabetes. Blood sugars are still elevated. We will increase her Lantus to 21 units. 2. Dementia. 3. Adult failure to thrive. PLAN: We will continue patient in the hospital. Increase insulin. Continue to follow blood sugars and blood pressures. Further orders as follows. cc: Ricky Daley MD MTDD
[2018-01-11] MEDS: BASAGLAR SUBQ SCH (20:07)
[2018-01-11] MEDS: LIPITOR PO SCH (20:08)
[2018-01-12] MEDS: HUMULIN R (PARKWAY) SUBQ SCH ×4 (06:35→20:55)
[2018-01-12] MEDS: NORVASC PO SCH (09:43)
[2018-01-12] MEDS: PRINIVIL PO SCH ×2 (09:43→20:12)
[2018-01-12] MEDS: LOPRESSOR PO SCH ×2 (09:43→20:12)
[2018-01-12] MEDS: SEROQUEL PO SCH ×2 (09:43→20:12)
[2018-01-12] MEDS: JANUVIA PO SCH (09:43)
[2018-01-12] MEDS: ASPIRIN PO SCH (09:43)
[2018-01-12] MEDS: VICTOZA SUBQ SCH (09:44)
[2018-01-12] MEDS: LOVENOX SUBQ SCH (17:53)
[2018-01-12] MEDS: LIPITOR PO SCH (20:12)
[2018-01-12] MEDS: BASAGLAR SUBQ SCH (20:55)
--- NOTE | 2018-01-12 22:21 | PROGRESS NOTE ---
DATE: 01/12/2018 SUBJECTIVE: The patient is in a good mood this morning. She nods yes, and states that she did eat. She denies any current pain. PHYSICAL EXAMINATION: Vital Signs: Temperature 97.7, pulse 88, respiratory rate 16, blood pressure 138/70. General: Patient is awake, alert. She is in no distress. HEENT: Normocephalic. Neck: Supple. Cardiovascular: Regular rate. Chest: Clear. Abdomen: Soft. ASSESSMENT: 1. Dementia. 2. Diabetes. Blood sugars are improving. We have increased her Lantus to 21 units. We will continue to increase as needed. 3. Hypertension PLAN: As noted previously, the patient unfortunately is still in the hospital, as her family will not sign over the papers. R also has not been very eager to take care of Ms. Bajwa. Hopefully, one of the two of them will have a change of heart, and Ms. Bajwa can be adequately transferred to a better permanent living facility. cc: Ricky Daley MD MTDD
[2018-01-13] MEDS: HUMULIN R (PARKWAY) SUBQ SCH ×4 (06:24→21:22)
[2018-01-13] MEDS: PRINIVIL PO SCH ×2 (08:22→21:22)
[2018-01-13] MEDS: SEROQUEL PO SCH ×2 (08:22→21:22)
[2018-01-13] MEDS: LOPRESSOR PO SCH ×2 (08:22→21:22)
[2018-01-13] MEDS: ASPIRIN PO SCH (08:22)
[2018-01-13] MEDS: NORVASC PO SCH (08:22)
[2018-01-13] MEDS: JANUVIA PO SCH (08:22)
[2018-01-13] MEDS: VICTOZA SUBQ SCH (08:24)
[2018-01-13] MEDS: LOVENOX SUBQ SCH (18:04)
--- NOTE | 2018-01-13 18:22 | PROGRESS NOTE ---
DATE: 01/13/2018 SUBJECTIVE: She looks like she is doing okay. No major complaints. OBJECTIVE: Blood pressure is 138/64.Cardiovascular: Regular rate and rhythm. Pulmonary: Bilateral breath sounds. Clear to auscultation. GI: Soft, nontender, nondistended. Bowel sounds are positive. LABORATORY DATA: Her sugars actually pretty good. No data . 1. Dementia is stable currently on current medications. 2. Diabetes. She is on 21 units of Lantus. Blood sugars seemed well controlled. DISPOSITION: She has now a brother and sister I believe from what I understand who are going to assume care of her as far as guardianship and then we should be able to proceed with the placement subsequently. It is very sad situation though because patient has a steady income which has been actually taken by other family members to help with her 's placement costs so it is a very unfortunate situation but she actually has her own revenue from her own job and her own work and it is not being used for her own placement. Very frustrating situation. cc: Zachery Bill MD
[2018-01-13] MEDS: BASAGLAR SUBQ SCH (21:22)
[2018-01-13] MEDS: LIPITOR PO SCH (21:22)
[2018-01-14] MEDS: HUMULIN R (PARKWAY) SUBQ SCH ×4 (05:59→22:34)
[2018-01-14] MEDS: PRINIVIL PO SCH ×2 (09:06→22:35)
[2018-01-14] MEDS: LOPRESSOR PO SCH ×2 (09:06→22:35)
[2018-01-14] MEDS: NORVASC PO SCH (09:06)
[2018-01-14] MEDS: ASPIRIN PO SCH (09:07)
[2018-01-14] MEDS: SEROQUEL PO SCH ×2 (09:07→22:34)
[2018-01-14] MEDS: VICTOZA SUBQ SCH (09:07)
[2018-01-14] MEDS: JANUVIA PO SCH (09:08)
[2018-01-14] MEDS: LOVENOX SUBQ SCH ×2 (17:12→18:00)
--- NOTE | 2018-01-14 21:00 | PROGRESS NOTE ---
DATE: 01/14/2018 SUBJECTIVE: The patient has no new complaints. She is eating breakfast. PHYSICAL EXAM: She is afebrile. Pulse is 85, respiratory rate 18, BP 138/64. General physical exam is unchanged. She is awake and alert. She is in no distress. ASSESSMENT: 1. Dementia. 2. Diabetes. PLAN: Will continue in the hospital until we can find adequate discharge plan. cc: Ricky Daley MD
[2018-01-14] MEDS: BASAGLAR SUBQ SCH (22:34)
[2018-01-14] MEDS: LIPITOR PO SCH (22:35)
[2018-01-15] MEDS: HUMULIN R (PARKWAY) SUBQ SCH ×5 (07:16→23:23)
[2018-01-15] MEDS: PRINIVIL PO SCH ×2 (09:03→21:17)
[2018-01-15] MEDS: ASPIRIN PO SCH (09:03)
[2018-01-15] MEDS: SEROQUEL PO SCH ×2 (09:03→21:16)
[2018-01-15] MEDS: JANUVIA PO SCH (09:03)
[2018-01-15] MEDS: VICTOZA SUBQ SCH (09:04)
[2018-01-15] MEDS: LOPRESSOR PO SCH ×2 (09:04→21:17)
[2018-01-15] MEDS: NORVASC PO SCH (09:04)
[2018-01-15] MEDS: LOVENOX SUBQ SCH (17:25)
[2018-01-15] MEDS: LIPITOR PO SCH (21:17)
[2018-01-15] MEDS: BASAGLAR SUBQ SCH (21:17)
[2018-01-15] MEDS: ATIVAN PO PRN ×2 (23:02→23:23)
--- NOTE | 2018-01-16 00:15 | PROGRESS NOTE ---
DATE: 01/15/2018 SUBJECTIVE: Patient has no complaints. PHYSICAL EXAMINATION: Vital Signs: Temperature 97.2 degrees, pulse 99, respiratory 20 BP 153/50. General: Patient is awake, alert. She is in no distress. CARDIOVASCULAR: Regular rate. Chest: Clear. ASSESSMENT: 1. Dementia. 2. Diabetes. 3. Hypertension. 4. Failure to thrive. PLAN: Continue patient in the hospital. Continue to await further discharge disposition for R. cc: Ricky Daley MD
[2018-01-16] MEDS: HUMULIN R (PARKWAY) SUBQ SCH ×4 (07:24→20:14)
[2018-01-16] MEDS: SEROQUEL PO SCH ×2 (09:12→20:35)
[2018-01-16] MEDS: VICTOZA SUBQ SCH (09:12)
[2018-01-16] MEDS: NORVASC PO SCH (09:12)
[2018-01-16] MEDS: ASPIRIN PO SCH (09:12)
[2018-01-16] MEDS: LOPRESSOR PO SCH ×2 (09:12→20:35)
[2018-01-16] MEDS: PRINIVIL PO SCH ×2 (09:12→20:35)
[2018-01-16] MEDS: JANUVIA PO SCH (09:12)
--- NOTE | 2018-01-16 11:13 | PROGRESS NOTE ---
DATE: 01/16/2018 SUBJECTIVE: Patient is lying in bed, and does not appear to be in any acute distress. She is not able to communicate because of her dementia. She is agitated at times. OBJECTIVE: Vital Signs: Temperature 97.7 degrees, pulse 78 per minute, respiratory rate 18 per minute, blood pressure 155/74, pulse ox 94% on room air. Cardiovascular: First and second heart sounds are audible without any murmurs or gallops. Respiratory: Bilateral lung air entry is good without any rales or rhonchi. Gastrointestinal: Abdomen is soft and nontender on palpation. Normal bowel sounds are present. DIAGNOSTIC DATA: No new labs are done. IMPRESSION AND PLAN: 1. The patient was initially admitted with extended spectrum beta lactamase positive Escherichia coli urinary tract infection that was treated with Invanz, followed by Macrobid. That has been now resolved. 2. Type 2 diabetes mellitus, for which she has been getting Lantus insulin 21 units subcutaneously every 24 hours along with regular insulin as per sliding scale. Will continue with his insulin regimen along with Victoza 1.8 mg subcutaneously every day and sitagliptin 100 mg daily. We will continue diabetic diet, as well. 3. Hypertension. Patient will continue to get Norvasc 10 mg daily along with lisinopril 10 mg daily and metoprolol 25 mg twice daily. We will continue with low-salt diet and monitor her blood pressure. 4. Dementia with behavioral signs for which will continue with Seroquel 200 mg orally twice daily. 5. Venous thromboembolism is being provided with enoxaparin 30 mg subcutaneously every 24 hours. 6. We plan to discharge her to rehab. But because of some problems with guardianship, we are waiting for R to resolve that tissue. cc: Hernan Morelos MD
[2018-01-16] MEDS: ATIVAN PO PRN (14:36)
[2018-01-16] MEDS: LOVENOX SUBQ SCH (17:56)
[2018-01-16] MEDS: NORCO-5 PO PRN (20:00)
[2018-01-16] MEDS: INSULIN PEN NEEDLES MISC PRN (20:12)
[2018-01-16] MEDS: BASAGLAR SUBQ SCH (20:33)
[2018-01-16] MEDS: LIPITOR PO SCH (20:35)
[2018-01-17] MEDS: NORCO-5 PO PRN ×2 (05:43→12:42)
[2018-01-17] MEDS: ATIVAN PO PRN (05:43)
[2018-01-17] MEDS: HUMULIN R (PARKWAY) SUBQ SCH ×4 (05:45→23:03)
[2018-01-17] MEDS: VICTOZA SUBQ SCH (09:21)
[2018-01-17] MEDS: SEROQUEL PO SCH ×2 (10:29→23:01)
[2018-01-17] MEDS: LOPRESSOR PO SCH ×2 (10:29→23:01)
[2018-01-17] MEDS: NORVASC PO SCH (10:29)
[2018-01-17] MEDS: ASPIRIN PO SCH (10:29)
[2018-01-17] MEDS: JANUVIA PO SCH (10:30)
[2018-01-17] MEDS: PRINIVIL PO SCH ×2 (10:30→23:01)
[2018-01-17] MEDS: FLEXERIL PO PRN (12:42)
--- NOTE | 2018-01-17 12:50 | PROGRESS NOTE ---
DATE: 01/17/2018 FAMILY CARE PHYSICIAN: Dr. Duong Ayala. SUBJECTIVE: The patient is lying in bed and is not having any issues. The patient is a poor historian because of her dementia. OBJECTIVE: Vital Signs: Temperature 97.6 degrees, pulse 77 per minute, respiratory rate 18 per minute, blood pressure 197/95, pulse oximetry 100% on room air. In comparison, blood pressure last night at 2351 was 105/54. Cardiovascular: First and second heart sounds are audible without any murmurs or gallops. Respiratory: Bilateral lung air entry is good without any rales or rhonchi. Gastrointestinal: Abdomen is soft and nontender on palpation. Normal bowel sounds are present. DIAGNOSTIC DATA: No new labs are done. IMPRESSION AND PLAN: 1. The patient was initially admitted with extended spectrum beta lactamase-positive Escherichia coli infection in her urinary tract that was treated with Invanz followed by Macrobid. That has now been resolved and she has not been having any urinary tract infection issues. 2. Type 2 diabetes mellitus, for which she will continue Lantus insulin 21 units subcutaneously every 24 hours along with regular insulin as per sliding scale. She will also continue getting Victoza 1.8 mg subcutaneously every day along with sitagliptin 100 mg daily and diabetic diet. 3. Hypertension. The patient's blood pressure has been mostly within normal range although it gets elevated whenever she is agitated. We will continue with amlodipine 10 mg daily along with lisinopril 10 mg daily and metoprolol 25 mg twice daily. She will also continue getting low-salt diet and we will continue monitoring her blood pressure. 4. Dementia with behavioral signs, for which we will continue with Seroquel 200 mg orally twice daily. 5. Venous thromboembolism prophylaxis is being provided with enoxaparin 30 mg subcutaneously every 24 hours. 6. We plan to discharge the patient to rehabilitation, but there are problems with the guardianship. We are waiting for [employer] to resolve that issue. cc: Hernan Morelos MD
[2018-01-17] MEDS: LOVENOX SUBQ SCH (17:55)
[2018-01-17] MEDS: LIPITOR PO SCH (23:01)
[2018-01-17] MEDS: BASAGLAR SUBQ SCH (23:03)
[2018-01-18] MEDS: ATIVAN PO PRN (02:17)
[2018-01-18] MEDS: HUMULIN R (PARKWAY) SUBQ SCH ×5 (06:02→21:01)
[2018-01-18] MEDS: SEROQUEL PO SCH ×2 (08:45→20:17)
[2018-01-18] MEDS: ASPIRIN PO SCH (08:45)
[2018-01-18] MEDS: JANUVIA PO SCH (08:45)
[2018-01-18] MEDS: NORVASC PO SCH (08:45)
[2018-01-18] MEDS: PRINIVIL PO SCH ×2 (08:45→20:17)
[2018-01-18] MEDS: LOPRESSOR PO SCH ×2 (08:45→20:17)
[2018-01-18] MEDS: VICTOZA SUBQ SCH (10:52)
[2018-01-18] MEDS: FLEXERIL PO PRN ×2 (11:08→23:09)
[2018-01-18] MEDS: LOVENOX SUBQ SCH ×2 (16:37→17:15)
--- NOTE | 2018-01-18 16:57 | PROGRESS NOTE ---
DATE: 01/18/2018 PRIMARY CARE PHYSICIANS: Dr. Duong Ayala. SUBJECTIVE: Patient is lying in bed and is not in any acute distress. She is a poor historian but states that she feels good today. OBJECTIVE: Vital signs: Temperature 98.3 degrees, pulse 83 per minute, respiratory rate 18 per minute, blood pressure 172/85, pulse oximetry 100% on room air. Cardiovascular: First and second heart sounds are audible without any murmurs or gallops. Respiratory: No respiratory distress noted. Bilateral lung air entry is good without any rales or rhonchi. Gastrointestinal: Abdomen is soft and nontender on palpation. Normal bowel sounds are present. DIAGNOSTIC DATA: No new labs are done. IMPRESSION AND PLAN: 1. The patient was initially admitted with extended spectrum beta lactamase positive Escherichia coli infection in her urinary tract and that has been treated well initially with Invanz followed by Misty. She has not been taking any more antibiotics. 2. Type 2 diabetes mellitus for which we will continue giving her Lantus insulin 21 units subcutaneously every 24 hours along with regular insulin as per sliding scale. She will also continue getting her Victoza 1.8 mg subcutaneously every day along with sitagliptin 100 mg daily. 3. Hypertension. The patient's blood pressure has been mostly within normal range although it gets elevated whenever she is agitated. We will continue with amlodipine 10 mg daily along with lisinopril 10 mg daily and metoprolol 25 mg twice daily. She will continue getting low- salt diet and we will continue to monitor her blood pressure for now. 4. Dementia with behavioral signs for which we will continue giving her Seroquel 200 mg orally twice daily. 5. Venous thromboembolism prophylaxis will be provided with enoxaparin 30 mg subcutaneously every 24 hours. 6. We plan to discharge her to rehab but there are problems with the guardianship. The case has been referred to [facility] who is going to make a decision in this regard. cc: Hernan Morelos MD
[2018-01-18] MEDS: LIPITOR PO SCH (20:17)
[2018-01-18] MEDS: BASAGLAR SUBQ SCH (21:01)
[2018-01-19] MEDS: HUMULIN R (PARKWAY) SUBQ SCH ×4 (06:23→21:28)
[2018-01-19] MEDS: VICTOZA SUBQ SCH (10:40)
[2018-01-19] MEDS: JANUVIA PO SCH (13:32)
[2018-01-19] MEDS: LOPRESSOR PO SCH ×2 (13:32→21:28)
[2018-01-19] MEDS: NORVASC PO SCH (13:32)
[2018-01-19] MEDS: ASPIRIN PO SCH (13:32)
[2018-01-19] MEDS: PRINIVIL PO SCH ×2 (13:32→21:28)
[2018-01-19] MEDS: SEROQUEL PO SCH ×2 (13:32→21:28)
[2018-01-19] MEDS: LOVENOX SUBQ SCH ×2 (17:11→17:50)
[2018-01-19] MEDS: BASAGLAR SUBQ SCH (21:27)
[2018-01-19] MEDS: LIPITOR PO SCH (21:28)
--- NOTE | 2018-01-19 22:42 | PROGRESS NOTE ---
DATE: 01/19/2018 SUBJECTIVE: The patient has no new complaints. States that she is feeling good. She is currently eating breakfast. PHYSICAL EXAMINATION: Vital Signs: Temperature 97.6 degrees, pulse 90, respiratory rate 16, blood pressure 189/85. General: Patient is awake, alert. She is currently in no distress. HEENT: Normocephalic. Neck: Supple. Cardiovascular: Regular rate. Chest: Clear. Abdomen: Soft. Extremities: Moves all extremities. ASSESSMENT: 1. Hypertension. We will increase her lisinopril to 20 twice a day. Continue metoprolol. 2. Dementia. 3. Type 2 diabetes. PLAN: As noted, we will increase her lisinopril. Continue to follow. Continue to await her ability to transition to rehab. cc: Ricky Daley MD
[2018-01-20] MEDS: HUMULIN R (PARKWAY) SUBQ SCH ×4 (06:30→22:55)
[2018-01-20 06:48] LABS: HEMATOCRIT 38.3 % (37.0-47.0); HEMOGLOBIN 12.2 g/dL (12.0-16.0); MCH 28.3 PG (27-31); MCHC 31.9 g/dL (33-37); MCV 88.9 FL (81-99); MPV 11.2 FL (7.4-10.4); RBC 4.31 XMIL (4.2-5.4); RDW 14.9 % (11.5-14.5); WBC 9.71 X1000 (4.8-10.8)
[2018-01-20 07:01] LABS: AGAP 9; ALBUMIN 3.5 g/dL (3.5-5.0); ALKALINE PHOSPHATASE 96 U/L (32-104); BUN 21 mg/dL (8-22); CALCIUM 9.9 mg/dL (8.8-10.2); CHLORIDE 104 mmol/L (98-107); COSMO 292; CREATININE 0.7 mg/dL (0.5-0.9); ESTIMATED GFR > 60; GLUCOSE 208 mg/dL (70-104); GOT 21 U/L (10-30); GPT 42 U/L (10-36); MAGNESIUM 2.2 mg/dL (1.5-2.7); POTASSIUM 3.5 mmol/L (3.5-5.1); SODIUM 142 mmol/L (136-145); TCO2 28 mmol/L (25-35); TOTAL PROTEIN 6.5 g/dL (6.3-8.3)
[2018-01-20] MEDS: JANUVIA PO SCH (10:34)
[2018-01-20] MEDS: SEROQUEL PO SCH ×2 (10:34→22:56)
[2018-01-20] MEDS: LOPRESSOR PO SCH ×2 (10:34→22:56)
[2018-01-20] MEDS: NORVASC PO SCH (10:35)
[2018-01-20] MEDS: PRINIVIL PO SCH ×2 (10:35→22:56)
[2018-01-20] MEDS: ASPIRIN PO SCH (10:35)
[2018-01-20] MEDS: VICTOZA SUBQ SCH (10:43)
--- NOTE | 2018-01-20 20:16 | PROGRESS NOTE ---
DATE: 01/20/2018 SUBJECTIVE: Patient has no complaints. Overall, she denies any chest pain. OBJECTIVE: Vital Signs: She is afebrile. Blood pressures are improved today at 128/75. HEENT: Normocephalic. CARDIOVASCULAR: Regular rate. Chest: Clear. Abdomen: Soft. Extremities: Moves all extremities. ASSESSMENT: 1. Hypertension. 2. Type 2 diabetes. 3. Dementia. PLAN: Will continue patient in the hospital. Hopefully she can transition to rehab soon. cc: Ricky Daley MD
[2018-01-20] MEDS: BASAGLAR SUBQ SCH (22:55)
[2018-01-20] MEDS: LIPITOR PO SCH (22:56)
[2018-01-21] MEDS: SEROQUEL PO SCH ×3 (01:49→22:44)
[2018-01-21] MEDS: FLEXERIL PO PRN (01:49)
[2018-01-21] MEDS: HUMULIN R (PARKWAY) SUBQ SCH ×3 (06:23→17:15)
[2018-01-21] MEDS: ASPIRIN PO SCH (08:51)
[2018-01-21] MEDS: NORVASC PO SCH (08:51)
[2018-01-21] MEDS: PRINIVIL PO SCH ×2 (08:51→22:44)
[2018-01-21] MEDS: LOPRESSOR PO SCH ×2 (08:51→22:44)
[2018-01-21] MEDS: JANUVIA PO SCH (08:51)
[2018-01-21] MEDS: VICTOZA SUBQ SCH (08:52)
--- NOTE | 2018-01-21 20:17 | PROGRESS NOTE ---
DATE: 01/21/2018 SUBJECTIVE: The patient has no new complaints. OBJECTIVE: Vital Signs: Reviewed and stable. She is awake, alert, oriented. Temperature 99.2 degrees, pulse 87, blood pressure stable at 160/70. General: Physical exam is unchanged. She moves all extremities well. She is awake and alert, although sometimes she refuses to talk. She is eating breakfast. HEENT: Normocephalic. Neck: Supple. CARDIOVASCULAR: Regular rate. Chest: Clear. Abdomen: Soft. ASSESSMENT: 1. Hypertension. 2. Dementia. 3. Recent urinary tract infection. PLAN: Continue patient in the hospital. Further orders as needed. Continue to follow her blood sugars and blood pressures. cc: Ricky Daley MD
[2018-01-21] MEDS: LIPITOR PO SCH (22:44)
[2018-01-21] MEDS: BASAGLAR SUBQ SCH (22:44)
[2018-01-22] MEDS: HUMULIN R (PARKWAY) SUBQ SCH ×4 (03:15→17:13)
[2018-01-22] MEDS: JANUVIA PO SCH (08:52)
[2018-01-22] MEDS: SEROQUEL PO SCH ×2 (08:53→20:27)
[2018-01-22] MEDS: PRINIVIL PO SCH ×2 (08:53→20:27)
[2018-01-22] MEDS: LOPRESSOR PO SCH ×2 (08:53→20:27)
[2018-01-22] MEDS: ASPIRIN PO SCH (08:53)
[2018-01-22] MEDS: NORVASC PO SCH (08:53)
[2018-01-22] MEDS: VICTOZA SUBQ SCH (09:41)
[2018-01-22] MEDS: BASAGLAR SUBQ SCH (20:28)
[2018-01-22] MEDS: LIPITOR PO SCH (20:28)
--- NOTE | 2018-01-22 21:14 | PROGRESS NOTE ---
DATE: 01/22/2018 SUBJECTIVE: Patient has no complaints. OBJECTIVE: Vital Signs: Reviewed and stable. Temperature 98 degrees, pulse 80, respiratory rate 20, blood pressure 135/68. General: Patient is awake and alert. She is in no distress. She is sitting in the bed. Physical exam is unchanged. ASSESSMENT: 1. Hypertension. 2. Dementia. 3. Adult failure to thrive. PLAN: We will continue to keep the patient in the hospital as she is unsafe to be discharged home. Hopefully, eventually at some point, [facility] will finish their investigation and will allow her to be transitioned to a skilled nursing. cc: Ricky Daley MD
[2018-01-23] MEDS: HUMULIN R (PARKWAY) SUBQ SCH ×5 (01:12→23:13)
[2018-01-23] MEDS: VICTOZA SUBQ SCH (10:33)
[2018-01-23] MEDS: JANUVIA PO SCH (10:34)
[2018-01-23] MEDS: LOPRESSOR PO SCH ×2 (10:34→21:30)
[2018-01-23] MEDS: SEROQUEL PO SCH ×2 (10:34→21:30)
[2018-01-23] MEDS: ASPIRIN PO SCH (10:34)
[2018-01-23] MEDS: PRINIVIL PO SCH ×2 (10:34→21:30)
[2018-01-23] MEDS: NORVASC PO SCH (10:34)
--- NOTE | 2018-01-23 19:20 | PROGRESS NOTE ---
DATE: 01/23/2018 SUBJECTIVE: Patient has no complaints. She is able to get out of bed unassisted. OBJECTIVE: Vital Signs: Temperature 98.3 degrees, pulse 98, respiratory rate 20, blood pressure 142/46. General: Patient is currently awake and alert. At the moment, she is refusing breakfast. HEENT: Normocephalic. Neck: Supple. CARDIOVASCULAR: Regular rate. Extremities: Moves all extremities. ASSESSMENT: 1. Hypertension. 2. Type 2 diabetes. 3. Dementia. PLAN: Continue to observe her in the hospital until such time she can transition to further long- term care. cc: Ricky Daley MD
[2018-01-23] MEDS: LIPITOR PO SCH (21:30)
[2018-01-23] MEDS: BASAGLAR SUBQ SCH (21:30)
[2018-01-24] MEDS: HUMULIN R (PARKWAY) SUBQ SCH ×4 (06:36→20:31)
[2018-01-24] MEDS: NORCO-5 PO PRN (09:52)
[2018-01-24] MEDS: ASPIRIN PO SCH (09:57)
[2018-01-24] MEDS: LOPRESSOR PO SCH ×2 (09:57→20:31)
[2018-01-24] MEDS: NORVASC PO SCH (09:58)
[2018-01-24] MEDS: PRINIVIL PO SCH ×2 (09:58→20:31)
[2018-01-24] MEDS: SEROQUEL PO SCH ×2 (09:59→20:30)
[2018-01-24] MEDS: FLEXERIL PO PRN (10:00)
[2018-01-24] MEDS: VICTOZA SUBQ SCH (10:00)
--- NOTE | 2018-01-24 18:25 | PROGRESS NOTE ---
DATE: 01/24/2018 SUBJECTIVE: No complaints. OBJECTIVE: Vital signs reviewed. Temperature 97.8 degrees, pulse 81, respiratory 20, BP 157/62. Physical unchanged, she is awake, alert, she is disoriented, moves all extremities. No distress. No changes. cc: Ricky Daley MD MTDD
[2018-01-24] MEDS: LIPITOR PO SCH (20:30)
[2018-01-24] MEDS: BASAGLAR SUBQ SCH (20:31)
[2018-01-25] MEDS: HUMULIN R (PARKWAY) SUBQ SCH ×5 (06:37→21:24)
[2018-01-25] MEDS: SEROQUEL PO SCH ×2 (11:45→20:19)
[2018-01-25] MEDS: ASPIRIN PO SCH (11:45)
[2018-01-25] MEDS: NORVASC PO SCH (11:45)
[2018-01-25] MEDS: PRINIVIL PO SCH ×2 (11:45→20:19)
[2018-01-25] MEDS: LOPRESSOR PO SCH ×2 (11:45→20:19)
[2018-01-25] MEDS: VICTOZA SUBQ SCH (11:46)
--- NOTE | 2018-01-25 18:47 | PROGRESS NOTE ---
DATE: 01/25/2018 SUBJECTIVE: Patient has no new complaints. PHYSICAL EXAMINATION: Vital Signs: Reviewed and stable. BP is 146/74, temp 98.2. General: Physical unchanged. She is sitting in the bed. She is in no distress. ASSESSMENT: 1. Hypertension. 2. Diabetes. 3. Dementia. PLAN: We will continue patient in the hospital. Continue comfort measures until which time she can be transitioned to further long-term care. cc: Ricky Daley MD
[2018-01-25] MEDS: LIPITOR PO SCH (20:19)
[2018-01-25] MEDS: BASAGLAR SUBQ SCH (21:23)
[2018-01-26] MEDS: HUMULIN R (PARKWAY) SUBQ SCH ×4 (06:56→17:08)
[2018-01-26] MEDS: ASPIRIN PO SCH (08:01)
[2018-01-26] MEDS: PRINIVIL PO SCH ×2 (08:02→20:45)
[2018-01-26] MEDS: LOPRESSOR PO SCH ×2 (08:02→20:44)
[2018-01-26] MEDS: NORVASC PO SCH (08:02)
[2018-01-26] MEDS: SEROQUEL PO SCH ×2 (08:02→20:44)
[2018-01-26] MEDS: VICTOZA SUBQ SCH (08:03)
[2018-01-26] MEDS: LIPITOR PO SCH (20:44)
[2018-01-26] MEDS: BASAGLAR SUBQ SCH (20:45)
--- NOTE | 2018-01-26 21:38 | PROGRESS NOTE ---
DATE: 01/26/2018 SUBJECTIVE: The patient has no complaints. OBJECTIVE: Vital Signs: Reviewed. Temperature 97, pulse 78, respiratory 20, BP 150/73. General: Patient is awake, alert, currently in no distress sitting in the bed. HEENT: Normocephalic. Neck: Supple. CARDIOVASCULAR: Regular rate. Chest: Clear, nonlabored. Abdomen: Soft, nondistended. Extremities: Moves all extremities. ASSESSMENT: 1. Hypertension. Patient's blood pressure is stable currently. 2. Diabetes with frequent episodes of hyper and hypoglycemia. We will continue to encourage the steady oral diet. 3. Dementia. PLAN: Hopefully, the patient can be transitioned to rehab soon. cc: Ricky Daley MD
[2018-01-27] MEDS: LOPRESSOR PO SCH ×2 (08:21→20:46)
[2018-01-27] MEDS: SEROQUEL PO SCH ×2 (08:22→20:46)
[2018-01-27] MEDS: PRINIVIL PO SCH ×2 (08:23→20:45)
[2018-01-27] MEDS: ASPIRIN PO SCH (08:24)
[2018-01-27] MEDS: NORVASC PO SCH (08:24)
[2018-01-27] MEDS: VICTOZA SUBQ SCH (08:25)
[2018-01-27] MEDS: HUMULIN R (PARKWAY) SUBQ SCH ×3 (09:07→17:36)
[2018-01-27] MEDS: BASAGLAR SUBQ SCH (20:45)
[2018-01-27] MEDS: LIPITOR PO SCH (20:46)
--- NOTE | 2018-01-27 22:02 | PROGRESS NOTE ---
DATE: 01/27/2018 SUBJECTIVE: She has no focal complaints. OBJECTIVE: Vital Signs: Blood pressure is 132/66, heart rate 96, respiratory rate 20, temperature 97.5 degrees, 100% on room air. Cardiovascular: Regular rate and rhythm. Pulmonary: Bilateral breath sounds. Clear to auscultation. GI: Abdomen soft, nontender, nondistended. Bowel sounds are positive. IMPRESSION: 1. Dementia appears to be well controlled on current regimen. 2. Diabetes, stable current now. 3. Hypertension, stable on current medications. DISPOSITION: Rehab once the durable [id number] has been established. At this point she is going to be a mack of the [facility], so we are waiting for placement. cc: Zachery Bill MD
[2018-01-28] MEDS: LOPRESSOR PO SCH ×2 (09:45→21:49)
[2018-01-28] MEDS: VICTOZA SUBQ SCH (09:45)
[2018-01-28] MEDS: ASPIRIN PO SCH (09:45)
[2018-01-28] MEDS: HUMULIN R (PARKWAY) SUBQ SCH ×3 (09:46→17:12)
[2018-01-28] MEDS: NORVASC PO SCH (09:46)
[2018-01-28] MEDS: SEROQUEL PO SCH ×2 (09:46→21:49)
[2018-01-28] MEDS: PRINIVIL PO SCH ×2 (09:46→21:49)
--- NOTE | 2018-01-28 16:56 | PROGRESS NOTE ---
DATE: 01/28/2018 SUBJECTIVE: The patient has no focal complaints. OBJECTIVE: Vital Signs: Blood pressure 174/97, heart rate of 81, respiratory rate 18, temperature 97.2 degrees, 99% on room air. Cardiovascular: Regular rate and rhythm. Pulmonary: Bilateral breath sounds. Clear to auscultation. Gastrointestinal: Soft, nontender, nondistended. Bowel sounds were positive. LABORATORY DATA: We do not have any data today. ASSESSMENT AND PLAN: 1. Dementia. Appears to be well-controlled. Current regimen. 2. Diabetes. She is still hyperglycemic, just systematically. We have pushed her doses previously, and then she just ended up getting hypoglycemic. Currently, she is on Victoza and Lantus, which we have slowly increased. I am going to bump it up a little bit more, and we will follow. 3. Disposition pending her clinical course. We are still waiting on rehab and power of county attorney to be established. cc: Zachery Bill MD
[2018-01-28] MEDS: LIPITOR PO SCH (21:49)
[2018-01-29] MEDS: NORVASC PO SCH (10:33)
[2018-01-29] MEDS: ASPIRIN PO SCH (10:33)
[2018-01-29] MEDS: PRINIVIL PO SCH ×2 (10:34→21:51)
[2018-01-29] MEDS: SEROQUEL PO SCH ×2 (10:34→21:51)
[2018-01-29] MEDS: LOPRESSOR PO SCH ×2 (10:34→21:51)
[2018-01-29] MEDS: VICTOZA SUBQ SCH (10:35)
[2018-01-29] MEDS: HUMULIN R (PARKWAY) SUBQ SCH ×3 (11:05→18:09)
[2018-01-29 18:02] LABS: BE -0.3 mmoll (-3.0-3.0); BLOOD TYPE ARTERIAL; HCO3-(ACT) 24.7 mmoll (20.0-26.0); METHB 0.6 % (0.0-1.5); O2(CT) 18.1 mL/dL (15.0-23.0); O2HB 96.8 % (95.0-99.0); PCO2(98.6) 31 mmHg (35-45); PO2(98.6) 101 mmHg (60-100); SAMPLE BLOOD; SAO2 100.6 % (95.0-100.0); THB 13.2 g/dL (11.5-17.4); pH(98.6) 7.47 (7.35-7.45)
[2018-01-29 18:05] LABS: HEMATOCRIT 39.4 % (37.0-47.0); HEMOGLOBIN 12.6 g/dL (12.0-16.0); MCH 28.2 PG (27-31); MCV 88.1 FL (81-99); MPV 11.5 FL (7.4-10.4); RBC 4.47 XMIL (4.2-5.4); RDW 14.4 % (11.5-14.5); WBC 10.2 X1000 (4.8-10.8)
[2018-01-29 18:06] LABS: ALLEN TEST NO; MODALITY ROOM AIR
[2018-01-29 18:32] LABS: AGAP 17; ALBUMIN 3.8 g/dL (3.5-5.0); ALKALINE PHOSPHATASE 112 U/L (32-104); BUN 20 mg/dL (8-22); CALCIUM 10.3 mg/dL (8.8-10.2); CHLORIDE 102 mmol/L (98-107); COSMO 287; CREATININE 0.8 mg/dL (0.5-0.9); ESTIMATED GFR > 60; GLUCOSE 161 mg/dL (70-104); GOT 75 U/L (10-30); GPT 112 U/L (10-36); POTASSIUM 3.8 mmol/L (3.5-5.1); SODIUM 141 mmol/L (136-145); TCO2 21 mmol/L (25-35); TOTAL PROTEIN 6.8 g/dL (6.3-8.3)
--- NOTE | 2018-01-29 18:32 | Diag Imaging Result Doc PS360 ---
EXAM: CT HEAD W/O CONTRAST INDICATION: r/o cva TECHNIQUE: This exam was performed using automated exposure control, adjustment of mA or kV according to patient size, and/or use of iterative reconstruction technique. COMPARISON: 12/02/2017 FINDINGS: There is extensive motion artifact throughout the study which significantly limits its diagnostic quality. 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 There is stable extensive left temporal lobe encephalomalacia underlying a craniotomy defect on the left. There is stable chronic calcification along the left tentorial leaflet. There is a stable left thalamic chronic lacunar infarct. The left-sided shunt catheter is in stable position. There is no definite acute infarct given the limited sensitivity of CT versus MRI. There is no discrete intracranial mass, mass effect, or intracranial hemorrhage. Surrounding soft tissues are unchanged. IMPRESSION: 1.Limited study due to excessive motion artifact. 2.Advanced chronic changes as described that are stable. No definite acute intracranial pathology. Electronically signed by Pacheco Frank 01/29/2018 6:30 PM
--- NOTE | 2018-01-29 20:14 | PROGRESS NOTE ---
DATE: 01/29/2018 SUBJECTIVE: Patient has no focal complaints. OBJECTIVE: Vital Signs: Blood pressure is 199/83, heart rate of 88, respiratory rate 18, temperature 97.4, 99% on room air. Cardiovascular: Regular rate and rhythm. Pulmonary: Bilateral breath sounds. Clear to auscultation. Gastrointestinal: Soft, nontender, nondistended. Bowel sounds are positive. LABORATORY DATA: Sugar up to 448. PROBLEM LIST: 1. Dementia, stable on her current medications. 2. Diabetes. She is not well-controlled. I bumped up her Lantus even more. I think we will just go up to 30 today. We have been down this road before, and then she bottoms out and we back off. It kind of goes up and down. We have tried 70/30 twice a day. She has had issues with that previously. She is a very brittle diabetic. 3. Hypertension, appears to be well controlled. 4. Disposition: Pending just placement at this point. A guardian has not been fully appointed. cc: Zachery Bill MD
[2018-01-29] MEDS: LIPITOR PO SCH (21:51)
[2018-01-29] MEDS: BASAGLAR SUBQ SCH (21:52)
[2018-01-30] MEDS: ASPIRIN PO SCH (09:31)
[2018-01-30] MEDS: NORVASC PO SCH (09:31)
[2018-01-30] MEDS: HUMULIN R DOSE (PARKWAY) SUBQ SCH ×3 (09:31→16:49)
[2018-01-30] MEDS: LOPRESSOR PO SCH ×2 (09:31→20:34)
[2018-01-30] MEDS: VICTOZA SUBQ SCH (09:32)
[2018-01-30] MEDS: SEROQUEL PO SCH (09:32)
[2018-01-30] MEDS: PRINIVIL PO SCH ×2 (09:32→20:34)
--- NOTE | 2018-01-30 18:12 | PROGRESS NOTE ---
DATE: 01/30/2018 SUBJECTIVE: She is a little sleepy today, but no further seizure activity. OBJECTIVE: Vital Signs: Blood pressure 139/50, heart rate 84, respiratory rate 12, temperature 97.9 degrees, 98% on room air. Cardiovascular: Regular rate and rhythm. Pulmonary: Bilateral breath sounds. Clear to auscultation. Gastrointestinal: Soft, nontender, nondistended. Bowel sounds are positive. LABORATORY DATA: White count yesterday 10, hemoglobin and hematocrit 12 and 39, platelets 236,000. Her blood gas looked okay except for a lactate of 6. AST and ALT were mildly elevated at 75 and 112. PROBLEM LIST: 1. Possible seizure disorder, unknown activity. She has not had any further activity. It was 1 discrete episode. The nurses have reported seizurelike activity previously associated with hypoglycemia, but her sugar yesterday I think was in the 170s when it happened. We are going to monitor. I have not started any antiepileptic medication at this point. However, since she does have dementia, I am going to switch her to Depakote instead and try to get her off the Seroquel for anxiety control and that may provide some seizure treatment as well. We will attempt to get an EEG and possibly neurological consult when available, and follow. 2. Diabetes. Blood sugars are relatively stable. 3. Disposition. Pending status. Her court probate evaluation did occur today, so hopefully we are going to move forward with [id number] and follow closely. cc: Zachery Bill MD
[2018-01-30] MEDS: BASAGLAR SUBQ SCH (20:32)
[2018-01-30] MEDS: DEPAKOTE ER PO SCH (20:33)
[2018-01-30] MEDS: LIPITOR PO SCH (20:33)
[2018-01-31 08:03] LABS: HEMATOCRIT 39.9 % (37.0-47.0); HEMOGLOBIN 12.8 g/dL (12.0-16.0); MCH 28.3 PG (27-31); MCHC 32.1 g/dL (33-37); MCV 88.1 FL (81-99); MPV 11.1 FL (7.4-10.4); RBC 4.53 XMIL (4.2-5.4); RDW 14.4 % (11.5-14.5); WBC 10.03 X1000 (4.8-10.8)
[2018-01-31 08:22] LABS: AGAP 12; BUN 22 mg/dL (8-22); CALCIUM 9.2 mg/dL (8.8-10.2); CHLORIDE 105 mmol/L (98-107); COSMO 295; CREATININE 0.7 mg/dL (0.5-0.9); ESTIMATED GFR > 60; GLUCOSE 117 mg/dL (70-104); POTASSIUM 3.2 mmol/L (3.5-5.1); SODIUM 146 mmol/L (136-145); TCO2 29 mmol/L (25-35)
[2018-01-31 08:29] LABS: ALBUMIN 3.8 g/dL (3.5-5.0); ALKALINE PHOSPHATASE 108 U/L (32-104); DIRECT BILIRUBIN < 0.20 mg/dL (0.00-0.20); GOT 32 U/L (10-30); GPT 78 U/L (10-36); TOTAL PROTEIN 6.4 g/dL (6.3-8.3)
[2018-01-31] MEDS: PRINIVIL PO SCH ×2 (11:16→22:45)
[2018-01-31] MEDS: VICTOZA SUBQ SCH (11:16)
[2018-01-31] MEDS: ASPIRIN PO SCH (11:16)
[2018-01-31] MEDS: NORVASC PO SCH (11:16)
[2018-01-31] MEDS: LOPRESSOR PO SCH ×2 (11:16→22:45)
[2018-01-31] MEDS: HUMULIN R (PARKWAY) SUBQ SCH ×3 (11:20→16:18)
[2018-01-31] MEDS: ATIVAN IM PRN (16:11)
--- NOTE | 2018-01-31 17:11 | PROGRESS NOTE ---
DATE: 01/31/2018 SUBJECTIVE: She has been just very agitated today. I did change her Seroquel dosing yesterday because of the addition of Depakote, I guess that may have not been the best idea for her, patient is doing okay otherwise. OBJECTIVE: Blood pressure 161/90, heart rate of 78, respiratory rate 20, temperature 98.4 degrees.Cardiovascular: Regular rate and rhythm. Pulmonary: Bilateral breath sounds. Clear to auscultation. GI: Soft, nontender, nondistended. Bowel sounds are positive. LABORATORY DATA: White count 10, hemoglobin and hematocrit 12 and 39, platelets 278,000, sodium 146, potassium 3.2, AST and ALT are up a little bit 32 and 78. PROBLEM LIST: 1. Possible seizure, she had 1 episode and it has resolved, I elected to put her on Depakote to control her agitation and then as a seizure medication and we will follow. I am trying to get an EEG and I will discuss her case with Neurology and see. 2. Diabetes. Will continue current Victoza and glargine. 3. Dementia. We will resume her Seroquel 200 at night and follow. DISPOSITION: Pending clinical status. Will continue to follow closely. cc: Zachery Bill MD
[2018-01-31] MEDS: LIPITOR PO SCH (22:45)
[2018-01-31] MEDS: DEPAKOTE ER PO SCH (22:45)
[2018-01-31] MEDS: BASAGLAR SUBQ SCH (22:45)
[2018-02-01] MEDS: LOPRESSOR PO SCH ×2 (10:46→22:30)
[2018-02-01] MEDS: ASPIRIN PO SCH (10:46)
[2018-02-01] MEDS: VICTOZA SUBQ SCH (10:47)
[2018-02-01] MEDS: PRINIVIL PO SCH ×2 (10:47→22:30)
[2018-02-01] MEDS: NORVASC PO SCH (10:47)
[2018-02-01] MEDS: HUMULIN R (PARKWAY) SUBQ SCH ×3 (10:54→15:23)
--- NOTE | 2018-02-01 15:19 | PROGRESS NOTE ---
DATE: 02/01/2018 SUBJECTIVE: Patient has no focal complaints. OBJECTIVE: Vital Signs: Blood pressure 177/80, heart rate of 86, respiratory rate 18, temperature 98.7, 100% on room air. Cardiovascular: Regular rate and rhythm. Pulmonary: Bilateral breath sounds. Clear to auscultation. Gastrointestinal: Soft, nontender, nondistended. Bowel sounds are positive. LABORATORY DATA: White count 10, hemoglobin and hematocrit 12 and 39, platelets 278,000. Sodium yesterday was 146, potassium 3.2. PROBLEM LIST: 1. Dementia with confusion. We will continue to follow. I have adjusted her medicines. Placement is a major issue now. She cannot take care of herself. 2. Seizure disorder. She did have one discrete episodes where she and her lactate did go up to 6, so I am suspicious she did have a true seizure but I do not have a great cause for it. We will get a neuro opinion, EEG. I did start some Depakote on her mostly also to assist with her agitation. She got very agitated yesterday. 3. Hypertension is still not well controlled. She is on max dose lisinopril. 4. Diabetes. Continue to monitor. Still not under complete control. cc: Zachery Bill MD
[2018-02-01] MEDS: BASAGLAR SUBQ SCH (22:29)
[2018-02-01] MEDS: LIPITOR PO SCH (22:30)
[2018-02-01] MEDS: DEPAKOTE ER PO SCH (22:30)
[2018-02-01] MEDS: SEROQUEL PO SCH (22:30)
[2018-02-02 06:35] LABS: HEMATOCRIT 38.9 % (37.0-47.0); HEMOGLOBIN 12.1 g/dL (12.0-16.0); MCH 27.8 PG (27-31); MCHC 31.1 g/dL (33-37); MCV 89.2 FL (81-99); MPV 11.5 FL (7.4-10.4); RBC 4.36 XMIL (4.2-5.4); RDW 14.5 % (11.5-14.5); WBC 7.68 X1000 (4.8-10.8)
[2018-02-02 06:59] LABS: AGAP 11; BUN 30 mg/dL (8-22); CALCIUM 9.6 mg/dL (8.8-10.2); CHLORIDE 112 mmol/L (98-107); COSMO 303; CREATININE 0.8 mg/dL (0.5-0.9); ESTIMATED GFR > 60; GLUCOSE 76 mg/dL (70-104); POTASSIUM 3.9 mmol/L (3.5-5.1); SODIUM 150 mmol/L (136-145); TCO2 28 mmol/L (25-35)
[2018-02-02] MEDS: NORVASC PO SCH (08:47)
[2018-02-02] MEDS: LOPRESSOR PO SCH ×2 (08:47→20:45)
[2018-02-02] MEDS: ASPIRIN PO SCH (08:47)
[2018-02-02] MEDS: ATIVAN IM PRN (08:48)
[2018-02-02] MEDS: PRINIVIL PO SCH ×2 (08:48→20:44)
[2018-02-02] MEDS: STERILE WATER INJ. INJ PRN (08:48)
[2018-02-02] MEDS: SEROQUEL PO SCH ×2 (08:48→20:45)
[2018-02-02] MEDS: GEODON IM PRN (08:48)
[2018-02-02] MEDS: VICTOZA SUBQ SCH (09:05)
[2018-02-02] MEDS: HUMULIN R (PARKWAY) SUBQ SCH ×3 (09:05→17:22)
--- NOTE | 2018-02-02 16:32 | PROGRESS NOTE ---
DATE: 02/02/2018 SUBJECTIVE: The patient has certainly been much more agitated over the last several days. OBJECTIVE: Blood pressure is 161/80, heart rate of 88, respiratory rate 16, temperature 98 degrees.Cardiovascular: Regular rate and rhythm. Pulmonary: Bilateral breath sounds. Clear to auscultation. GI: Soft, nontender, nondistended. Bowel sounds are positive. LABORATORY DATA: White count 7, hemoglobin and hematocrit 12 and 38, platelets 259,000, her sodium has gone up to 150 though with a BUN of 30. PROBLEM LIST: 1. Dementia with confusion. Will continue to monitor. She is having significant adjustment disorders here. 2. Seizure. She had 1 clearly witnessed seizure with postictal state. No real known triggers. EEG was thankfully obtained although she was somewhat sedated so the information may be somewhat limited. We are waiting on a neuro consult. Her neuro imaging is negative. 3. Hypertension is stable currently. She is on lisinopril. 4. Diabetes. Continue regular medications. 5. Disposition. Pending her clinical status. 6. Hypernatremia likely related to dehydration, poor free water intake. We have initiated back some fluids and we will follow. Disposition, we are still waiting on final caregiver planning once patient is stabilized. cc: Zachery Bill MD
--- NOTE | 2018-02-02 17:52 | EEG REPORT ---
DATE: 02/02/2018 REFERRING PHYSICIAN: Zachery Bill MD. SHADOWGRAPH OPERATOR: Linda Jimenez. BACKGROUND INFORMATION AND TECHNIQUE: A digitally recorded EEG with video is obtained with one additional channel for EKG. HISTORY: This is an [id number]-female patient admitted with mental status changes. She has been combative. MEDICATIONS: Lorazepam was given just prior to EEG. Medications also included Seroquel, Prinivil, Norvasc, Lopressor, Lipitor, aspirin, Geodon and lorazepam. EEG FINDINGS: A posterior dominant alpha rhythm is notably absent. Background maximal alertness consists of theta greater than delta slowing with superimposed and admixed faster frequencies. No definite persistent focal slowing. No epileptiform discharges. No seizures. Hyperventilation was not performed. Photic stimulation did not alter the record. The patient is drowsy or asleep for much of the record. EKG demonstrates regular intervals. IMPRESSION AND CLINICAL CORRELATION: Abnormal, routine EEG due to moderate generalized slowing indicative of a moderate nonspecific encephalopathy. Generalized slowing is a nonspecific finding that can be seen in processes that diffusely affect the cerebrum with good and toxic metabolic pharmacologic, posthypoxic and infectious etiologies. No epileptiform discharge and no seizures are seen on the current study. This does not rule out an underlying seizure disorder. Clinical correlation is advised. cc: MD Zachery Almanzar MD
[2018-02-02] MEDS: D50W SYRINGE IV PRN (17:58)
[2018-02-02] MEDS: DEPAKOTE ER PO SCH (20:44)
[2018-02-02] MEDS: LIPITOR PO SCH (20:45)
[2018-02-03] MEDS: ATIVAN IM PRN (02:32)
[2018-02-03 07:14] LABS: HEMATOCRIT 38.9 % (37.0-47.0); HEMOGLOBIN 12.3 g/dL (12.0-16.0); MCH 28.2 PG (27-31); MCHC 31.6 g/dL (33-37); MCV 89.2 FL (81-99); MPV 11.9 FL (7.4-10.4); RBC 4.36 XMIL (4.2-5.4); RDW 14.3 % (11.5-14.5); WBC 7.6 X1000 (4.8-10.8)
[2018-02-03 07:43] LABS: AGAP 11; BUN 17 mg/dL (8-22); CALCIUM 9.2 mg/dL (8.8-10.2); CHLORIDE 108 mmol/L (98-107); COSMO 294; CREATININE 0.6 mg/dL (0.5-0.9); ESTIMATED GFR > 60; GLUCOSE 166 mg/dL (70-104); POTASSIUM 3.5 mmol/L (3.5-5.1); SODIUM 145 mmol/L (136-145); TCO2 26 mmol/L (25-35)
--- NOTE | 2018-02-03 08:10 | CONSULTATION ---
DATE OF CONSULTATION: 02/02/2018 REASON FOR CONSULTATION: Seizure. HISTORY OF PRESENT ILLNESS: This is an 82-year-old female who has been admitted to [facility] for over 2 months now with agitation and aggression. History is from chart review as the patient is unable to provide a history and there is no family available. Apparently, the patient was living at some sort of facility in [facility] and she was gradually becoming more aggressive and agitated. She was hitting and kicking and spitting. She has done this here in the hospital as well. She was admitted 11/14/2017 and has been treated for a urinary tract infection. She does not have a family to care for her. I believe she is a mack of the [facility]. There are not much in the way of prior records in the system that I can tell. She carries a diagnosis of dementia and prior stroke but I do not have further details of this. On 01/29/2018, I believe, the patient was seen to have seizure-like activity involving shaking all over. She had associated bump in her lactate level. She was postictal. There may have been mention by the nurses that she has had seizure I believe this hospitalization when her blood sugars have been quite low, but this time her blood sugar was not low. There was no obvious cause for it. She has had labile blood sugars this hospitalization and I presume this has been an issue for her. She does not have a known seizure disorder but not much is known about her history overall. Head CT showed no definite acute findings. Most recent head CT showed no acute findings. It did show, however, extensive left temporal encephalomalacia as well as an underlying craniotomy defect on the left and a left-sided shunt catheter which is in stable position with the tip overlying the left frontal lobe. There is stable left thalamic chronic lacunar infarct, stable advanced white matter microangiopathy and a prior left mastoidectomy. Of note, none of this was documented in her medical history, actually everything about her history, and unfortunately there is not family to assist with this. PAST MEDICAL HISTORY: Also includes: 1. Hypertension. 2. Hyperlipidemia. 3. Chronic kidney disease. 4. Diabetes. FAMILY HISTORY: Unobtainable. SOCIAL HISTORY: She has been living in a termite control servicer care facility. There is no smoking or alcohol. She, I believe, may be a mack of the [facility] currently and the team is attempting to find placement for the patient because she cannot care for herself. ALLERGIES: Listed to metformin and latex. CURRENT MEDICATIONS: Reviewed in the chart. Depakote ER 500 mg p.o. nightly just has been started 3 days ago. REVIEW OF SYSTEMS: Unobtainable. PHYSICAL EXAMINATION: Vital Signs: Currently afebrile. Blood pressure 187/83 , pulse 75, respirations 18, 97% on room air. Neurologic: Ms. Bajwa is supine in bed, appears to be asleep. Does not respond to mild voice, does respond to tactile stimulation, grimaces, kicks legs, raises arms at times, attempts to punch or push with her arms. She resists examination overall. She keeps her eyes closed and resists passive eye opening. She does not answer questions. She does not follow any commands. Pupils are equal, appear to be reactive to light. She has some horizontal eye movements to passive head turning. No consistent blink to threat but that was difficult to assess given the situation. No meningismus. Face appears symmetric with symmetric grimace. Tone may be increased on the right but overall again resisting exam. I could not detect a definite asymmetry with strength on limited testing. She responds to noxious stimuli in all extremities. Coordination was untestable. Gait untested. Reflexes difficult to elicit as she would not relax. No clonus. Plantar response with excessive withdrawal and kicking. DIAGNOSTIC TESTS: Per above. Sodium 150 today. Blood sugars have been quite variable with highs and lows. LFTs have been mildly elevated. Routine EEG was reviewed today personally. It did not show any epileptiform discharges or seizures. There was moderate nonspecific encephalopathy. ASSESSMENT: An 82-year-old female, mack of the [facility], with 1. Seizure event without documented focal features 2. Labile blood glucose 3. Agitation, aggression. Uncertain baseline. At times she is more agreeable with nursing staff. 4. Reported history of dementia. Does not appear to be on any medications for this. 5. Reported history of stroke with extensive encephalomalacia on the left and evidence of prior craniotomy and shunt on CT 6. Urinary tract infection. Treated. PLAN: I'm going to switch depakote to lacosamide 100mg po bid. We can titrate if needed. She likely has an underlying seizure disorder though I do not believe she has been on seizure medications at the facility. I would continue treating her metabolic derangements and any underlying infections as you are doing. She has a reported history of dementia, and this may be the case, but I don't have further details of this and she is not currently on any medications. Her baseline, which is uncertain, may be related to the remote major neurologic event that is evident on CT imaging. Lack of acute findings on multiple CTs this admission is reassuring, though if she doesn't improve and no other obvious cause is apparent, then an attempt at MRI may be beneficial. Thank you for the consultation. cc: Nallely Beltran MD MTDD
[2018-02-03] MEDS: HUMULIN R (PARKWAY) SUBQ SCH ×4 (09:01→21:24)
[2018-02-03] MEDS: PRINIVIL PO SCH ×2 (10:34→21:05)
[2018-02-03] MEDS: ASPIRIN PO SCH (10:34)
[2018-02-03] MEDS: NORVASC PO SCH (10:34)
[2018-02-03] MEDS: SEROQUEL PO SCH ×2 (10:34→21:05)
[2018-02-03] MEDS: LOPRESSOR PO SCH ×3 (10:34→21:05)
[2018-02-03] MEDS: VICTOZA SUBQ SCH (10:34)
[2018-02-03] MEDS: VIMPAT PO SCH ×2 (11:34→21:05)
--- NOTE | 2018-02-03 17:24 | PROGRESS NOTE ---
DATE: 02/03/2018 SUBJECTIVE: Patient has no new complaints this morning. She is confused and disoriented. PHYSICAL: Temperature 97.5 degrees, pulse 74, respiratory rate 18, BP 171/79.General: Patient is awake and alert. She is confused and disoriented. This appears to be her baseline. HEENT: Normocephalic, atraumatic. JEN. Neck: Supple. No JVD. CARDIOVASCULAR: Regular rate. Chest: Clear. Abdomen: Soft. Extremities: Moves all extremities. ASSESSMENT: 1. Dementia. The patient has baseline dementia which is what is preventing her from being discharged. She is incapable of caring for herself. She frequently gets confused and disoriented which creates situational anxiety and stress. She also frequently forgets to eat which creates hypoglycemic episodes which is likely what caused her most recent seizure. In essence dementia is her main problem which is creating her other issues. 2. Seizure. 3. Hypertension. 4. Diabetes. 5. Hypernatremia improving. PLAN: We will continue patient in the hospital. Continue her current medications. Continue symptomatic treatment. Hopefully she can be transitioned to rehab soon. cc: Ricky Daley MD
[2018-02-03] MEDS: LIPITOR PO SCH (21:05)
[2018-02-03] MEDS: BASAGLAR SUBQ SCH (21:23)
[2018-02-04] MEDS: HUMULIN R (PARKWAY) SUBQ SCH ×4 (03:10→18:19)
[2018-02-04] MEDS: LOPRESSOR PO SCH (09:45)
[2018-02-04] MEDS: PRINIVIL PO SCH (09:45)
[2018-02-04] MEDS: MIRALAX PO SCH (09:45)
[2018-02-04] MEDS: SEROQUEL PO SCH (09:45)
[2018-02-04] MEDS: VIMPAT PO SCH (09:45)
[2018-02-04] MEDS: NORVASC PO SCH (09:45)
[2018-02-04] MEDS: ASPIRIN PO SCH (09:45)
--- NOTE | 2018-02-04 13:56 | PROGRESS NOTE ---
DATE: 02/04/2018 SUBJECTIVE: Patient has no complaint. OBJECTIVE: Vital signs: Temperature 97.5 degrees, pulse 97, respiratory rate 22, BP 177/91. General: Patient is in no respiratory distress. She is currently lying in the bed. Refusing to wear covers or clothes. HEENT: Normocephalic. Neck: Supple. Cardiovascular: Regular rate. Chest: Nonlabored. Extremities: Moves all extremities. ASSESSMENT: 1. Dementia. Patient appears to be at her baseline mental status which is what prevents her from being discharged home to care for herself. 2. Recent seizure, I expect due to hypoglycemia. 3. Diabetes with very difficult to control blood sugars given the fact that Ms. Bajwa dementia causes her to over eat some days and not eat some days. 4. Hypernatremia, resolved. PLAN: Continue to await placement. cc: Ricky Daley MD
[2018-02-04] MEDS: VICTOZA SUBQ SCH (18:19)
[2018-02-04] MEDS: BASAGLAR SUBQ SCH (21:59)
[2018-02-05] MEDS: VIMPAT PO SCH ×3 (01:27→20:31)
[2018-02-05] MEDS: PRINIVIL PO SCH ×3 (01:28→20:31)
[2018-02-05] MEDS: LIPITOR PO SCH ×2 (01:28→20:31)
[2018-02-05] MEDS: SEROQUEL PO SCH ×3 (01:28→20:31)
[2018-02-05] MEDS: LOPRESSOR PO SCH ×3 (01:28→20:31)
[2018-02-05] MEDS: MIRALAX PO SCH ×3 (01:28→20:32)
[2018-02-05] MEDS: HUMULIN R (PARKWAY) SUBQ SCH ×6 (01:34→20:31)
[2018-02-05] MEDS: NORVASC PO SCH (09:59)
[2018-02-05] MEDS: ASPIRIN PO SCH (09:59)
[2018-02-05] MEDS: VICTOZA SUBQ SCH (10:00)
[2018-02-05] MEDS: BASAGLAR SUBQ SCH (20:32)
[2018-02-06] MEDS: GEODON IM PRN ×2 (03:47→20:28)
[2018-02-06] MEDS: STERILE WATER INJ. INJ PRN ×2 (03:47→20:27)
[2018-02-06] MEDS: HUMULIN R (PARKWAY) SUBQ SCH ×4 (06:04→21:28)
--- NOTE | 2018-02-06 09:05 | PROGRESS NOTE ---
DATE: 02/05/2018 SUBJECTIVE: Patient without any current problems. OBJECTIVE: Vital Signs: Temperature 97.8, pulse 95, respiratory rate 18, blood pressure 158/87. General: The patient is very pleasant, this morning. She is in no distress. Physical unchanged. ASSESSMENT: 1. Dementia. 2. Seizures. 3. Hypertension. 4. Diabetes. PLAN: We will continue to await the ability to transfer. cc: Ricky Daley MD MTDD
[2018-02-06] MEDS: LOPRESSOR PO SCH ×2 (11:25→20:28)
[2018-02-06] MEDS: NORVASC PO SCH (11:26)
[2018-02-06] MEDS: PRINIVIL PO SCH ×2 (11:26→20:28)
[2018-02-06] MEDS: ASPIRIN PO SCH (11:26)
[2018-02-06] MEDS: MIRALAX PO SCH ×2 (11:26→20:29)
[2018-02-06] MEDS: VICTOZA SUBQ SCH (11:27)
[2018-02-06] MEDS: SEROQUEL PO SCH ×2 (11:27→20:28)
[2018-02-06] MEDS: VIMPAT PO SCH ×2 (11:28→20:28)
--- NOTE | 2018-02-06 13:37 | PROGRESS NOTE ---
DATE: 02/06/2018 SUBJECTIVE: Patient has no other complaints. OBJECTIVE: Temperature 97.9 degrees, pulse 87, respiratory 14 and BP 145/73.General: Patient is awake, alert, and currently in no distress. She is confused but at her baseline. HEENT: Normocephalic. Neck: Supple. CARDIOVASCULAR: Regular rate. Chest: Clear. ASSESSMENT: 1. Dementia. 2. Seizures. 3. Hypertension. 4. Diabetes. PLAN: Continue patient in the hospital. Continue symptomatic care. Further orders as needed. cc: Ricky Daley MD
[2018-02-06] MEDS: LIPITOR PO SCH (20:28)
[2018-02-06] MEDS: BASAGLAR SUBQ SCH (21:28)
[2018-02-07] MEDS: HUMULIN R (PARKWAY) SUBQ SCH ×5 (06:43→22:44)
[2018-02-07] MEDS: PRINIVIL PO SCH ×2 (10:35→20:53)
[2018-02-07] MEDS: SEROQUEL PO SCH ×2 (10:36→20:53)
[2018-02-07] MEDS: VIMPAT PO SCH ×2 (10:36→20:53)
[2018-02-07] MEDS: ASPIRIN PO SCH (10:36)
[2018-02-07] MEDS: NORVASC PO SCH (10:36)
[2018-02-07] MEDS: MIRALAX PO SCH ×2 (10:37→20:52)
[2018-02-07] MEDS: LOPRESSOR PO SCH ×2 (10:37→20:53)
[2018-02-07] MEDS: VICTOZA SUBQ SCH ×2 (10:38→11:25)
--- NOTE | 2018-02-07 12:46 | PROGRESS NOTE ---
DATE: 02/07/2018 SUBJECTIVE: The patient has no complaints. She is sitting in a chair. PHYSICAL EXAM: Vital Signs: Temperature 97.7, pulse 81, respiratory 14, BP is stable. General: Patient is awake, alert. She is sitting in a chair. Her physical exam is unchanged. PLAN: We will continue patient in the hospital. Await transfer to long-term care facility. She currently is in the hospital for dementia. cc: Ricky Daley MD
[2018-02-07] MEDS: LIPITOR PO SCH (20:53)
[2018-02-07] MEDS: BASAGLAR SUBQ SCH (21:25)
[2018-02-08] MEDS: HUMULIN R (PARKWAY) SUBQ SCH ×4 (06:01→21:40)
--- NOTE | 2018-02-08 11:10 | PROGRESS NOTE ---
DATE: 02/08/2018 SUBJECTIVE: Patient has no new complaints. OBJECTIVE: Vital Signs: Reviewed. Temperature 98 degrees, pulse 84, blood pressure stable at 150s to 170s. Physical examination unchanged. ASSESSMENT: 1. Dementia. 2. Seizures. 3. Hypertension. 4. Diabetes. PLAN: We will continue patient in the hospital until which time she can be transitioned to long- term care. cc: Ricky Daley MD
[2018-02-08] MEDS: MIRALAX PO SCH ×2 (12:34→21:40)
[2018-02-08] MEDS: NORVASC PO SCH (12:35)
[2018-02-08] MEDS: VIMPAT PO SCH ×2 (12:35→21:41)
[2018-02-08] MEDS: PRINIVIL PO SCH ×2 (12:35→21:40)
[2018-02-08] MEDS: SEROQUEL PO SCH ×2 (12:35→21:40)
[2018-02-08] MEDS: ASPIRIN PO SCH (12:35)
[2018-02-08] MEDS: LOPRESSOR PO SCH ×2 (12:35→21:40)
[2018-02-08] MEDS: VICTOZA SUBQ SCH (12:50)
[2018-02-08] MEDS: BASAGLAR SUBQ SCH (21:40)
[2018-02-08] MEDS: LIPITOR PO SCH (21:40)
[2018-02-09] MEDS: HUMULIN R (PARKWAY) SUBQ SCH ×4 (06:50→23:45)
[2018-02-09] MEDS: MIRALAX PO SCH ×2 (08:43→21:39)
[2018-02-09] MEDS: NORVASC PO SCH (08:43)
[2018-02-09] MEDS: VIMPAT PO SCH ×2 (08:43→20:52)
[2018-02-09] MEDS: LOPRESSOR PO SCH ×2 (08:43→20:53)
[2018-02-09] MEDS: ASPIRIN PO SCH (08:43)
[2018-02-09] MEDS: PRINIVIL PO SCH ×2 (08:43→20:53)
[2018-02-09] MEDS: SEROQUEL PO SCH ×2 (08:43→20:52)
[2018-02-09] MEDS: VICTOZA SUBQ SCH (08:44)
--- NOTE | 2018-02-09 13:41 | PROGRESS NOTE ---
DATE: 02/09/2018 SUBJECTIVE: Patient currently has no complaints. PHYSICAL EXAMINATION: Vital Signs: Temperature 98, pulse 89, respiratory 22, blood pressure 150/83. General: Patient is awake. She is alert. She is yelling for someone who is not currently in the hospital. She is in no respiratory distress. HEENT: Normocephalic. Neck: Supple. Cardiovascular: Regular rate. Chest: Clear. ASSESSMENT: 1. Dementia. 2. Seizure. 3. Hypertension. 4. Diabetes. 5. Recent hypernatremia. PLAN: Overall, patient is stable. We will continue her medications. We will not attempt to get great blood sugar control, as she frequently decides not to eat, which makes her blood sugars drop, and I believe that is what caused her to have a seizure. We will continue to follow. Further orders as needed. Hopefully, eventually she can transition to a long-term care facility. cc: Ricky Daley MD
[2018-02-09] MEDS: LIPITOR PO SCH (20:53)
[2018-02-09] MEDS: ATIVAN IM PRN (20:53)
[2018-02-09] MEDS: BASAGLAR SUBQ SCH (20:53)
[2018-02-10] MEDS: HUMULIN R (PARKWAY) SUBQ SCH ×4 (07:15→20:27)
[2018-02-10] MEDS: MIRALAX PO SCH ×2 (09:26→20:26)
[2018-02-10] MEDS: SEROQUEL PO SCH ×2 (09:27→20:27)
[2018-02-10] MEDS: PRINIVIL PO SCH ×2 (09:27→20:27)
[2018-02-10] MEDS: VIMPAT PO SCH ×2 (09:27→20:28)
[2018-02-10] MEDS: NORVASC PO SCH (09:27)
[2018-02-10] MEDS: LOPRESSOR PO SCH ×2 (09:27→20:27)
[2018-02-10] MEDS: VICTOZA SUBQ SCH (09:28)
[2018-02-10] MEDS: INSULIN PEN NEEDLES MISC PRN (09:28)
[2018-02-10] MEDS: ASPIRIN PO SCH (09:28)
--- NOTE | 2018-02-10 16:50 | PROGRESS NOTE ---
DATE: 02/10/2018 SUBJECTIVE: This morning, Ms. Bajwa continued to be fairly stable. There is no changes overnight. OBJECTIVE: Vital signs: Blood pressure is 165/93, pulse 90, respirations 18, temperature 97.9. General: Ms. Bajwa is an 82-year-old, female, she is in bed. She was not in any cardiopulmonary distress. Chest: Clear. There were no crepitations, no rhonchi. Cardiovascular: Regular rate and rhythm. No murmurs, no rubs, no gallops. Abdomen: Soft. Extremities: No pedal edema. FINISHED METAL REPAIRER: Patient was awake and alert. LABORATORY DATA: None. CURRENT MEDICATIONS: 1. Amlodipine 10 mg daily. 2. Aspirin 325 p.o. daily. 3. Atorvastatin 40 mg at bedtime. 4. Insulin glargine 30 units subcutaneous at bedtime. 5. Vimpat 100 mg b.i.d. 6. Victoza 1.8 subcu daily. 7. Lisinopril 20 mg p.o. b.i.d. 8. Metoprolol 25 b.i.d. 9. Quetiapine 200 mg b.i.d. 10. MiraLAX p.r.n. 11. Ziprasidone 10 mg p.r.n. ASSESSMENT: 1. Dementia. 2. Seizure disorder. 3. Hypertension. 4. Diabetes mellitus. PLAN: Patient is still pending disposition. cc: Daniel Hahn MD
[2018-02-10] MEDS: BASAGLAR SUBQ SCH (20:26)
[2018-02-10] MEDS: LIPITOR PO SCH (20:27)
[2018-02-11] MEDS: HUMULIN R (PARKWAY) SUBQ SCH ×4 (06:02→20:36)
[2018-02-11] MEDS: PRINIVIL PO SCH ×2 (08:50→20:35)
[2018-02-11] MEDS: MIRALAX PO SCH ×2 (08:50→20:36)
[2018-02-11] MEDS: LOPRESSOR PO SCH ×2 (08:50→20:35)
[2018-02-11] MEDS: VIMPAT PO SCH ×2 (08:51→20:35)
[2018-02-11] MEDS: SEROQUEL PO SCH ×2 (08:51→20:35)
[2018-02-11] MEDS: NORVASC PO SCH (08:51)
[2018-02-11] MEDS: ASPIRIN PO SCH (08:52)
[2018-02-11] MEDS: VICTOZA SUBQ SCH (08:53)
--- NOTE | 2018-02-11 14:22 | PROGRESS NOTE ---
DATE: 02/11/2018 SUBJECTIVE: Today, Ms. Bajwa continues to be fairly stable. There are no new changes. OBJECTIVE: Vital signs: Have been reviewed. Blood pressure is 155/81, pulse is 90, respirations 18, temperature 98 degrees. Patient is saturating 100% on room air. General: Ms. Bajwa is an 82-year-old female. She is in bed, not in any distress. Mucosa is pink and moist. Anicteric. Acyanotic. Neck: Supple. Chest: Good air entry bilateral. No crepitations. No rhonchi. Cardiovascular: Regular rate and rhythm. No murmurs, no rubs, no gallops. Abdomen: Soft. There is no hepatosplenomegaly. Extremities: No pedal edema. Distal pulses are present. BRIDGE MECHANIC: Patient is alert and oriented to person, disoriented to time and to place. No labs for today. PATIENT MEDICATIONS: Have also been reviewed. ASSESSMENT AND PLAN: 1. Dementia, likely Alzheimer's. 2. Seizure disorder. Control on anti-seizure medications. 3. Diabetes mellitus. We will continue with insulin regimen. 4. Hypertension, controlled. 5. Disposition. Still pending placement by the director of social services. I understand [facility] is involved. cc: Daniel Hahn MD
[2018-02-11] MEDS: BASAGLAR SUBQ SCH (20:35)
[2018-02-11] MEDS: LIPITOR PO SCH (20:36)
[2018-02-12] MEDS: HUMULIN R (PARKWAY) SUBQ SCH ×4 (06:01→20:22)
[2018-02-12] MEDS: PRINIVIL PO SCH ×3 (09:00→20:21)
--- NOTE | 2018-02-12 09:06 | PROGRESS NOTE ---
DATE: 02/12/2018 SUBJECTIVE: Ms. Bajwa is currently sitting up in the bedside chair, feeding self breakfast. No new changes. OBJECTIVE: Vital Signs: Showed a temperature of 97.8 degrees, a pulse 96, respirations 20, blood pressure 140/85, saturating 96% on room air. General: This is an 82-year-old female, who is sitting up in the bedside chair, feeding self breakfast. No distress noted. Lungs: Clear to auscultation bilaterally with equal lung expansion and chest wall movement. Heart: With regular rate and rhythm. No murmurs, rubs, or gallops. Abdomen: Soft, nontender, nondistended. Bowel sounds are present x4 quadrants. Musculoskeletal: She has 3 to 4/5 strength to bilateral upper and lower extremities. Neurological: The cranial nerves 2-12 are grossly intact. She is alert and oriented to person only. LABORATORY DATA: No new labs today. ASSESSMENT: 1. Dementia, likely Alzheimer's. 2. Seizure disorder. 3. Diabetes. 4. Hypertension. PLAN: Will continue with her current medication regimen. No changes at this time. We continue to await a court hearing as the patient has [facility] involvement for long-term placement. Dictated by EDDIE Vicente for Ventura Pleitez MD cc: EDDIE Vicente MD
[2018-02-12] MEDS: VIMPAT PO SCH ×3 (10:25→20:21)
[2018-02-12] MEDS: SEROQUEL PO SCH ×3 (10:25→20:21)
[2018-02-12] MEDS: LOPRESSOR PO SCH ×3 (10:25→20:22)
[2018-02-12] MEDS: NORVASC PO SCH (10:25)
[2018-02-12] MEDS: MIRALAX PO SCH ×3 (10:26→20:22)
[2018-02-12] MEDS: VICTOZA SUBQ SCH (10:26)
[2018-02-12] MEDS: ASPIRIN PO SCH (10:26)
[2018-02-12] MEDS: BASAGLAR SUBQ SCH ×2 (19:38→20:21)
[2018-02-12] MEDS: LIPITOR PO SCH ×2 (19:38→20:23)
[2018-02-13] MEDS: HUMULIN R (PARKWAY) SUBQ SCH ×4 (06:44→20:49)
[2018-02-13] MEDS: SEROQUEL PO SCH ×2 (09:36→20:49)
[2018-02-13] MEDS: ASPIRIN PO SCH (09:36)
[2018-02-13] MEDS: MIRALAX PO SCH ×2 (09:36→23:55)
[2018-02-13] MEDS: PRINIVIL PO SCH ×2 (09:37→20:49)
[2018-02-13] MEDS: LOPRESSOR PO SCH ×2 (09:37→20:49)
[2018-02-13] MEDS: NORVASC PO SCH (09:37)
[2018-02-13] MEDS: VIMPAT PO SCH ×2 (09:37→20:49)
[2018-02-13] MEDS: VICTOZA SUBQ SCH (09:38)
--- NOTE | 2018-02-13 10:20 | PROGRESS NOTE ---
DATE: 02/13/2018 SUBJECTIVE: The patient is sitting up in bedside chair eating breakfast. No complaints voiced. OBJECTIVE: Vital signs show a temperature of 98, pulse 90, respirations 18, blood pressure 147/70, saturating 97% on room air. General: This is an 82-year-old female who is sitting up in the bedside chair and feeding herself breakfast. No distress noted. Her lungs are clear to auscultation bilaterally with equal lung expansion and chest wall movement. Heart with regular rate and rhythm. No murmurs, rubs or gallops. Abdomen: Soft, nontender and nondistended. Bowel sounds present x4 quadrants. Musculoskeletal: She has 3 to 4/5 strength to bilateral upper and lower extremities. Neurologic: Her cranial nerves II through XII are grossly intact. It is noted that she is alert and oriented to person only. DIAGNOSTIC DATA: No new labs today. ASSESSMENT: 1. Dementia, likely Alzheimer's. 2. Seizure disorder. 3. Diabetes. 4. Hypertension. PLAN: We will continue with her current medication regimen. No changes made at this time. We continue to await her court hearing as she is a [facility] case for longterm placement. Dictated by EDDIE Vicente for Ventura Pleitez MD cc: EDDIE Vicente MD
[2018-02-13] MEDS: LIPITOR PO SCH (20:49)
[2018-02-13] MEDS: BASAGLAR SUBQ SCH (20:50)
[2018-02-14] MEDS: HUMULIN R (PARKWAY) SUBQ SCH ×4 (06:29→22:50)
[2018-02-14] MEDS: LOPRESSOR PO SCH ×3 (10:40→23:18)
[2018-02-14] MEDS: PRINIVIL PO SCH ×3 (10:40→23:22)
[2018-02-14] MEDS: MIRALAX PO SCH ×3 (10:40→23:19)
[2018-02-14] MEDS: VIMPAT PO SCH ×3 (10:40→23:22)
[2018-02-14] MEDS: NORVASC PO SCH (10:40)
[2018-02-14] MEDS: SEROQUEL PO SCH ×3 (10:40→23:22)
[2018-02-14] MEDS: ASPIRIN PO SCH (10:40)
[2018-02-14] MEDS: VICTOZA SUBQ SCH (10:41)
--- NOTE | 2018-02-14 11:17 | PROGRESS NOTE ---
DATE: 02/14/2018 SUBJECTIVE: The patient is lying in bed and has not been having any complaints. The patient is awake and responsive. OBJECTIVE: Vital Signs: Temperature 98.1 degrees, pulse 95 per minute, respiratory rate 18 per minute, blood pressure 167/67, pulse ox 98% on room air. Cardiovascular System: 1st and 2nd heart sounds are audible without any murmurs or gallops. Respiratory System: Bilateral lung air entry is moderate without any rales or rhonchi. Gastrointestinal System: Abdomen is soft and nondistended. Normal bowel sounds are present. DIAGNOSTIC DATA: No new labs are done. IMPRESSION AND PLAN: 1. Dementia with behavioral signs for which we will continue to give her Seroquel 200 mg twice daily. 2. Type 2 diabetes for which the patient will continue with Victoza along with the rest of medical care. 3. Hypertension. The patient's blood pressure has been mostly controlled. We will continue with amlodipine 10 mg daily along with lisinopril 40 mg a day and losartan. 4. Dyslipidemia. The patient will continue with atorvastatin 40 mg daily at bedtime. Discharge planning has been trying to do the disposition, but there are problems with guardianship. The case has been referred to [facility] for awhile, and a decision has not been made yet. cc: Hernan Morelos MD
[2018-02-14] MEDS: BASAGLAR SUBQ SCH (22:50)
[2018-02-14] MEDS: LIPITOR PO SCH ×2 (22:51→23:21)
[2018-02-15] MEDS: HUMULIN R (PARKWAY) SUBQ SCH ×4 (07:35→22:29)
[2018-02-15] MEDS: MIRALAX PO SCH ×2 (09:13→22:29)
[2018-02-15] MEDS: NORVASC PO SCH (09:13)
[2018-02-15] MEDS: LOPRESSOR PO SCH ×2 (09:13→21:51)
[2018-02-15] MEDS: VIMPAT PO SCH ×2 (09:13→21:51)
[2018-02-15] MEDS: SEROQUEL PO SCH ×2 (09:13→21:51)
[2018-02-15] MEDS: ASPIRIN PO SCH (09:13)
[2018-02-15] MEDS: PRINIVIL PO SCH ×2 (09:13→21:51)
[2018-02-15] MEDS: VICTOZA SUBQ SCH (09:16)
--- NOTE | 2018-02-15 09:47 | PROGRESS NOTE ---
DATE: 02/15/2018 SUBJECTIVE: Patient is lying in bed and does not have any acute issues. She is not able to communicate properly because of her mental condition. OBJECTIVE: Vital Signs: Temperature 97.7 degrees, pulse 86 per minute, respiratory rate 16 per minute, blood pressure 153/85, pulse oximetry 98 percent on room air. Cardiovascular System: First and second heart sounds are audible without any murmurs or gallops. Respiratory System: Bilateral lung air entry is good without any rales or rhonchi. Gastrointestinal System: Abdomen is soft and nondistended. Normal bowel sounds are present. Diagnostic Data: No new labs are done. IMPRESSION AND PLAN: 1. Dementia with behavioral signs for which we will continue with Seroquel 200 mg twice daily. 2. Type 2 diabetes mellitus. The patient will continue to get Victoza along with the rest of her medical care. 3. Hypertension. Patient's blood pressure has been mostly stable. We will continue with amlodipine 10 mg daily along with lisinopril 40 mg daily and metoprolol. 4. Dyslipidemia. Patient will continue with atorvastatin 40 mg daily at bedtime. 5. Discharge planning has been trying to do disposition but there are problems with guardianship. The patient has been referred to [facility] for awhile and a decision has not been made yet. cc: Hernan Morelos MD
[2018-02-15] MEDS: ATIVAN IM PRN (10:16)
[2018-02-15] MEDS: LIPITOR PO SCH (21:51)
[2018-02-15] MEDS: BASAGLAR SUBQ SCH (21:52)
[2018-02-16] MEDS: HUMULIN R (PARKWAY) SUBQ SCH ×3 (06:35→17:18)
--- NOTE | 2018-02-16 10:20 | PROGRESS NOTE ---
DATE: 02/16/2018 SUBJECTIVE: Patient has no complaints. OBJECTIVE: Vital signs: Temperature 97.9, pulse 103, respiratory rate 20, BP 136/94. General: Patient is in no distress. Her physical exam is unchanged. Chest: Clear. Extremities: Moves all extremities. She is in no distress. ASSESSMENT: 1. Dementia with behavioral problems. 2. Type 2 diabetes. 3. Hypertension. 4. Dyslipidemia. PLAN: We will continue to await proper placement. cc: Ricky Daley MD
[2018-02-16] MEDS: VIMPAT PO SCH ×2 (12:45→21:34)
[2018-02-16] MEDS: ASPIRIN PO SCH (12:45)
[2018-02-16] MEDS: NORVASC PO SCH (12:45)
[2018-02-16] MEDS: LOPRESSOR PO SCH ×2 (12:45→21:34)
[2018-02-16] MEDS: SEROQUEL PO SCH ×2 (12:45→21:35)
[2018-02-16] MEDS: PRINIVIL PO SCH ×2 (12:45→21:34)
[2018-02-16] MEDS: MIRALAX PO SCH ×2 (12:46→21:35)
[2018-02-16] MEDS: VICTOZA SUBQ SCH (12:46)
[2018-02-16] MEDS: BASAGLAR SUBQ SCH (21:34)
[2018-02-16] MEDS: LIPITOR PO SCH (21:35)
[2018-02-17] MEDS: HUMULIN R (PARKWAY) SUBQ SCH ×5 (00:37→20:42)
[2018-02-17] MEDS: PRINIVIL PO SCH ×2 (10:54→20:43)
[2018-02-17] MEDS: MIRALAX PO SCH ×2 (10:54→20:42)
[2018-02-17] MEDS: SEROQUEL PO SCH ×2 (10:54→20:43)
[2018-02-17] MEDS: NORVASC PO SCH (10:54)
[2018-02-17] MEDS: LOPRESSOR PO SCH ×2 (10:54→20:43)
[2018-02-17] MEDS: VICTOZA SUBQ SCH (10:55)
[2018-02-17] MEDS: VIMPAT PO SCH ×2 (10:55→20:42)
[2018-02-17] MEDS: ASPIRIN PO SCH (10:55)
--- NOTE | 2018-02-17 18:18 | PROGRESS NOTE ---
DATE: 02/17/2018 SUBJECTIVE: The patient is an 82-year-old female who is in no distress. OBJECTIVE: Vital Signs: Pulse 90, respiratory 20, blood pressure 159/81. General: The patient is awake and alert. She is currently in no distress. HEENT: Normocephalic, atraumatic. JEN. Neck: Supple. CARDIOVASCULAR: Regular rate. Chest: Clear. ASSESSMENT: 1. Dementia. 2. Diabetes. 3. Hypertension. 4. Dyslipidemia. PLAN: Will continue patient in the hospital until suitable discharge plans can be arranged. cc: Ricky Daley MD
[2018-02-17] MEDS: LIPITOR PO SCH (20:42)
[2018-02-17] MEDS: BASAGLAR SUBQ SCH (20:42)
[2018-02-18] MEDS: HUMULIN R (PARKWAY) SUBQ SCH ×4 (06:09→20:44)
[2018-02-18] MEDS: ASPIRIN PO SCH (09:57)
[2018-02-18] MEDS: MIRALAX PO SCH ×2 (09:57→20:44)
[2018-02-18] MEDS: PRINIVIL PO SCH ×2 (09:57→20:44)
[2018-02-18] MEDS: LOPRESSOR PO SCH ×2 (09:57→20:44)
[2018-02-18] MEDS: NORVASC PO SCH (09:57)
[2018-02-18] MEDS: SEROQUEL PO SCH ×2 (09:58→20:43)
[2018-02-18] MEDS: VIMPAT PO SCH ×2 (09:58→20:43)
[2018-02-18] MEDS: VICTOZA SUBQ SCH (09:58)
[2018-02-18] MEDS: BASAGLAR SUBQ SCH (20:43)
[2018-02-18] MEDS: GEODON IM PRN (20:43)
[2018-02-19] MEDS: ATIVAN IM PRN (00:30)
[2018-02-19] MEDS: HUMULIN R (PARKWAY) SUBQ SCH ×4 (06:36→22:13)
[2018-02-19] MEDS: VICTOZA SUBQ SCH (10:40)
[2018-02-19] MEDS: SEROQUEL PO SCH ×2 (10:42→22:15)
[2018-02-19] MEDS: VIMPAT PO SCH ×2 (10:42→22:15)
[2018-02-19] MEDS: NORVASC PO SCH (10:42)
[2018-02-19] MEDS: MIRALAX PO SCH ×2 (10:42→22:15)
[2018-02-19] MEDS: LOPRESSOR PO SCH ×2 (10:42→22:15)
[2018-02-19] MEDS: BASAGLAR SUBQ SCH (22:13)
[2018-02-20] MEDS: HUMULIN R (PARKWAY) SUBQ SCH ×4 (07:21→21:24)
[2018-02-20] MEDS: NORVASC PO SCH (10:26)
[2018-02-20] MEDS: MIRALAX PO SCH ×2 (10:26→20:18)
[2018-02-20] MEDS: VIMPAT PO SCH ×2 (10:26→20:18)
[2018-02-20] MEDS: LOPRESSOR PO SCH ×2 (10:26→20:18)
[2018-02-20] MEDS: SEROQUEL PO SCH ×2 (10:26→20:18)
[2018-02-20] MEDS: VICTOZA SUBQ SCH (10:27)
--- NOTE | 2018-02-20 13:02 | PROGRESS NOTE ---
DATE: 02/20/2018 SUBJECTIVE: Patient has no complaints. OBJECTIVE: Vital Signs: Reviewed and stable. General: Her physical exam is unchanged. She is still intermittently confused and disoriented. ASSESSMENT: 1. Dementia. 2. Diabetes. 3. Hypertension. 4. Dyslipidemia. PLAN: Continue patient in the hospital until adequate discharge plans have been made by R and the state. cc: Ricky Daley MD
[2018-02-20] MEDS: GEODON IM PRN (20:17)
[2018-02-20] MEDS: STERILE WATER INJ. INJ PRN (20:17)
[2018-02-20] MEDS: BASAGLAR SUBQ SCH (21:24)
[2018-02-21] MEDS: HUMULIN R (PARKWAY) SUBQ SCH ×4 (06:04→22:13)
[2018-02-21] MEDS: SEROQUEL PO SCH ×2 (10:14→22:13)
[2018-02-21] MEDS: VIMPAT PO SCH ×2 (10:14→22:12)
[2018-02-21] MEDS: MIRALAX PO SCH ×2 (10:14→22:13)
[2018-02-21] MEDS: LOPRESSOR PO SCH ×2 (10:14→22:13)
[2018-02-21] MEDS: NORVASC PO SCH (10:14)
[2018-02-21] MEDS: VICTOZA SUBQ SCH (10:15)
--- NOTE | 2018-02-21 17:35 | PROGRESS NOTE ---
DATE: 02/21/2018 SUBJECTIVE: Patient has no complaints. OBJECTIVE: Vital signs reviewed and stable. Blood pressure mildly elevated today at 157/89. Physical unchanged. IMPRESSION: 1. Dementia. 2. Diabetes. 3. Hypertension. 4. Dyslipidemia. PLAN: Patient will be continued in the hospital until which time suitable discharge plans can be arranged through D[facility] and the state process. cc: Ricky Daley MD
[2018-02-21] MEDS: BASAGLAR SUBQ SCH (22:13)
[2018-02-22] MEDS: HUMULIN R (PARKWAY) SUBQ SCH ×4 (06:17→21:10)
[2018-02-22] MEDS: MIRALAX PO SCH ×2 (11:32→21:09)
[2018-02-22] MEDS: NORVASC PO SCH (11:33)
[2018-02-22] MEDS: VICTOZA SUBQ SCH (11:33)
[2018-02-22] MEDS: SEROQUEL PO SCH ×2 (11:33→21:09)
[2018-02-22] MEDS: LOPRESSOR PO SCH ×2 (11:33→21:10)
[2018-02-22] MEDS: VIMPAT PO SCH ×2 (11:33→21:09)
[2018-02-22] MEDS: BASAGLAR SUBQ SCH (21:10)
--- NOTE | 2018-02-22 22:06 | PROGRESS NOTE ---
DATE: 02/22/2018 SUBJECTIVE: Patient seen. No changes. PHYSICAL: Vital Signs: Reviewed and stable. Blood pressure is elevated this morning, had been better. We will continue to follow. General: Her physical exam is really unchanged. ASSESSMENT: 1. Hypertension. Continue to follow her blood pressures, remain elevated. We will need to adjust her medicines again. 2. Dyslipidemia. 3. Diabetes. 4. Dementia. PLAN: We will continue to await transition to a more suitable for her situation. cc: Ricky Daley MD MTDD
[2018-02-23] MEDS: HUMULIN R (PARKWAY) SUBQ SCH ×4 (06:03→21:29)
[2018-02-23] MEDS: VICTOZA SUBQ SCH (10:14)
[2018-02-23] MEDS: MIRALAX PO SCH ×2 (10:14→21:29)
[2018-02-23] MEDS: LOPRESSOR PO SCH (10:15)
[2018-02-23] MEDS: VIMPAT PO SCH ×2 (10:15→21:29)
[2018-02-23] MEDS: SEROQUEL PO SCH ×2 (10:15→21:29)
[2018-02-23] MEDS: NORVASC PO SCH (10:15)
[2018-02-23] MEDS: BASAGLAR SUBQ SCH (21:29)
--- NOTE | 2018-02-23 21:54 | PROGRESS NOTE ---
DATE: 02/23/2018 SUBJECTIVE: Patient has no focal complaints. She sits up in bed pleasantly confused. OBJECTIVE: Blood pressure 156/97, heart rate 108, respiratory rate 16, temperature 99 degrees.Cardiovascular: Regular rate and rhythm. Pulmonary: Bilateral breath sounds. Clear to auscultation. GI: Soft, nondistended, bowel sounds are positive. LABORATORY DATA: None. Blood sugars are still 280s, 300 sometimes 400s. PROBLEM LIST: 1. Hypertension which is still up a bit. She is on amlodipine 10, metoprolol 25 b.i.d. which we probably could switch her to Toprol that is it, her diabetes still not controlled, she is on Victoza and Lantus. She probably should she is getting sliding scale. 2. Seizure, she is on Vimpat per Neurology. Seems to be doing okay from that standpoint. 3. Dementia with behavioral issues. Overall she is doing fine. DISPOSITION: Pending her clinical status. We will continue to follow closely. We are waiting on guardianship and will see how she does. cc: Zachery Bill MD
[2018-02-23] MEDS: ATIVAN IM PRN (23:01)
[2018-02-24] MEDS: D50W SYRINGE IV PRN (06:07)
[2018-02-24] MEDS: HUMULIN R (PARKWAY) SUBQ SCH ×4 (07:28→21:34)
[2018-02-24] MEDS: NORVASC PO SCH (09:09)
[2018-02-24] MEDS: MIRALAX PO SCH (09:09)
[2018-02-24] MEDS: TOPROL XL PO SCH (09:09)
[2018-02-24] MEDS: SEROQUEL PO SCH ×2 (09:09→21:35)
[2018-02-24] MEDS: VIMPAT PO SCH ×2 (09:10→21:34)
[2018-02-24] MEDS: VICTOZA SUBQ SCH (09:10)
--- NOTE | 2018-02-24 10:29 | EKG Report ---
Test Performed on : 02/24/2018 09:26:39 AM Test Reason : chest pain Blood Pressure : / mmHG Vent. Rate : 082 BPM Atrial Rate : 082 BPM P-R Int : 140 ms QRS Dur : 096 ms QT Int : 406 ms P-R-T Axes : -04 -51 078 degrees QTc Int : 474 ms Normal sinus rhythm. Left axis deviation Left ventricular hypertrophy with repolarization abnormality Abnormal ECG When compared with ECG of 25-DEC-2017 16:36, No significant change was found Confirmed by Duong Kearney MD ([id number]) on 03/05/2018 1:58:58 PM
[2018-02-24] MEDS: BASAGLAR SUBQ SCH (21:34)
[2018-02-25] MEDS: MIRALAX PO SCH ×3 (05:30→23:37)
[2018-02-25] MEDS: HUMULIN R (PARKWAY) SUBQ SCH ×4 (06:07→23:36)
[2018-02-25 06:14] LABS: HEMATOCRIT 38.1 % (37.0-47.0); HEMOGLOBIN 12.1 g/dL (12.0-16.0); MCH 27.5 PG (27-31); MCHC 31.8 g/dL (33-37); MCV 86.6 FL (81-99); MPV 11.3 FL (7.4-10.4); RBC 4.4 XMIL (4.2-5.4); WBC 6.33 X1000 (4.8-10.8)
[2018-02-25 06:26] LABS: AGAP 12; BUN 18 mg/dL (8-22); CALCIUM 9.3 mg/dL (8.8-10.2); CHLORIDE 109 mmol/L (98-107); COSMO 294; CREATININE 0.8 mg/dL (0.5-0.9); ESTIMATED GFR > 60; GLUCOSE 99 mg/dL (70-104); POTASSIUM 3.6 mmol/L (3.5-5.1); SODIUM 147 mmol/L (136-145); TCO2 26 mmol/L (25-35)
[2018-02-25] MEDS: VIMPAT PO SCH ×2 (10:02→23:37)
[2018-02-25] MEDS: NORVASC PO SCH (10:02)
[2018-02-25] MEDS: VICTOZA SUBQ SCH (10:02)
[2018-02-25] MEDS: TOPROL XL PO SCH (10:02)
[2018-02-25] MEDS: SEROQUEL PO SCH ×2 (10:02→23:37)
--- NOTE | 2018-02-25 11:34 | PROGRESS NOTE ---
DATE: 02/24/2018 SUBJECTIVE: The patient had an eventful night. She had another episode of hypoglycemia this morning at 36 and repeat was 47 and questionable seizure activity associated with that. She is now somewhat asleep, but I think she had gotten some Ativan because of agitation. OBJECTIVE: Vital Signs: Blood pressure is 152/64, heart rate 84, respiratory 18, temperature 97.4 degrees, 100% on room air. Cardiovascular: Regular rate and rhythm. Pulmonary: Bilateral breath sounds. Clear to auscultation. GI: Soft, nontender, nondistended. Bowel sounds are positive. LABORATORY DATA: 1. Nothing today yet. She will have labs in bit if there are any major issues. Probably check a basic and CBC just to make sure nothing has changed. We will see how she is doing. ASSESSMENT AND PLAN: 1. From a diabetic standpoint, I am going to decrease her nighttime Lantus to 25 units and will see how she does. 2. Seizures previously being controlled on the Vimpat and, again, she clearly has a reason for this currently, so will see how things look. DISPOSITION: Pending her placement and guardianship. We are still waiting on that. cc: Zachery Bill MD
[2018-02-25] MEDS: ATIVAN IM PRN (12:16)
--- NOTE | 2018-02-25 14:25 | PROGRESS NOTE ---
DATE: 02/25/2018 SUBJECTIVE: The patient is at her pleasant confusion level. OBJECTIVE: Vital Signs: Blood pressure 164/86, heart rate 81, respiratory rate 18, temperature 98 degrees, 98% on room air. Cardiovascular: Regular rate and rhythm. Pulmonary: Bilateral breath sounds clear to auscultation. LABORATORY DATA: White count 6, hemoglobin and hematocrit 12 and 38. PROBLEM LIST: 1. Diabetes, stable on Lantus. 2. Seizure disorder, controlled on Vimpat. 3. Malnutrition, stable currently. DISPOSITION: Waiting on guardianship. cc: Zachery Bill MD
[2018-02-25] MEDS: BASAGLAR SUBQ SCH (23:36)
[2018-02-26] MEDS: ATIVAN IM PRN (04:33)
[2018-02-26] MEDS: HUMULIN R (PARKWAY) SUBQ SCH ×4 (06:39→22:35)
[2018-02-26] MEDS: SEROQUEL PO SCH ×2 (09:47→22:35)
[2018-02-26] MEDS: MIRALAX PO SCH ×2 (09:47→22:35)
[2018-02-26] MEDS: TOPROL XL PO SCH (09:48)
[2018-02-26] MEDS: NORVASC PO SCH (09:48)
[2018-02-26] MEDS: VIMPAT PO SCH ×2 (09:48→22:35)
[2018-02-26] MEDS: VICTOZA SUBQ SCH (11:01)
--- NOTE | 2018-02-26 18:37 | PROGRESS NOTE ---
DATE: 02/26/2018 SUBJECTIVE: Patient has no focal complaints. OBJECTIVE: Blood pressure is 166/83, heart rate of 86, respiratory rate 20, temperature 97.8, 100% on room air.Cardiovascular: Regular rate and rhythm. Pulmonary: Bilateral breath sounds. Clear to auscultation. Gastrointestinal: Soft, nontender, nondistended. Bowel sounds are positive. LABORATORY DATA: White count 6, hemoglobin and hematocrit 12 and 38. PROBLEM LIST: 1. Diabetes, appears under decent control. Continue Lantus. 2. Seizure disorder, is stable on current medications. We will continue to follow closely. DISPOSITION: Pending clinical status. We will continue to monitor closely. Waiting on guardianship to be evaluated. cc: Zachery Blil MD
[2018-02-26] MEDS: BASAGLAR SUBQ SCH (22:34)
[2018-02-27 06:28] LABS: HEMATOCRIT 40.3 % (37.0-47.0); HEMOGLOBIN 12.9 g/dL (12.0-16.0); MCH 27.8 PG (27-31); MCV 86.9 FL (81-99); MPV 11.5 FL (7.4-10.4); RBC 4.64 XMIL (4.2-5.4); WBC 6.92 X1000 (4.8-10.8)
[2018-02-27] MEDS: HUMULIN R (PARKWAY) SUBQ SCH ×4 (06:29→20:58)
[2018-02-27 06:40] LABS: AGAP 12; BUN 14 mg/dL (8-22); CALCIUM 9.3 mg/dL (8.8-10.2); CHLORIDE 104 mmol/L (98-107); COSMO 284; CREATININE 0.8 mg/dL (0.5-0.9); ESTIMATED GFR > 60; GLUCOSE 70 mg/dL (70-104); POTASSIUM 3.1 mmol/L (3.5-5.1); SODIUM 143 mmol/L (136-145); TCO2 27 mmol/L (25-35)
[2018-02-27] MEDS: ATIVAN IM PRN (11:05)
[2018-02-27] MEDS: NORVASC PO SCH (11:12)
[2018-02-27] MEDS: SEROQUEL PO SCH ×2 (11:12→20:57)
[2018-02-27] MEDS: TOPROL XL PO SCH (11:12)
[2018-02-27] MEDS: VICTOZA SUBQ SCH (11:12)
--- NOTE | 2018-02-27 17:01 | PROGRESS NOTE ---
DATE: 02/27/2018 SUBJECTIVE: Patient has no focal complaints. OBJECTIVE: Blood pressure 153/79, heart rate of 75, respiratory rate 18, temperature 97.6 degrees, 100% on room air.Cardiovascular: Regular rate and rhythm. Pulmonary: Bilateral breath sounds. Clear to auscultation. GI: Soft, nontender, nondistended. Bowel sounds are positive. LABORATORY DATA: White count 6.9, hemoglobin and hematocrit 12 and 40, platelets 274,000, potassium 3.1, that was today's labs. PROBLEM LIST: 1. Dementia with vascular disturbance. Clinically she seems to be doing okay. 2. Hypertension. Continue regular medications. 3. Diabetes appears to be relatively stable. She is in the 130s to 200s. 4. Hypokalemia. Will supplement and follow. DISPOSITION: Pending clinical status. We are waiting on a placement for this patient long-term. cc: Zachery Bill MD
[2018-02-27] MEDS: MIRALAX PO SCH ×2 (17:27→20:57)
[2018-02-27] MEDS: VIMPAT PO SCH ×2 (17:27→20:57)
[2018-02-27] MEDS: BASAGLAR SUBQ SCH (20:57)
[2018-02-28] MEDS: HUMULIN R (PARKWAY) SUBQ SCH ×4 (06:03→23:23)
[2018-02-28] MEDS: D50W SYRINGE IV PRN (09:17)
[2018-02-28] MEDS: SEROQUEL PO SCH ×2 (10:20→23:23)
[2018-02-28] MEDS: VIMPAT PO SCH ×2 (10:20→23:23)
[2018-02-28] MEDS: NORVASC PO SCH (10:20)
[2018-02-28] MEDS: TOPROL XL PO SCH (10:20)
[2018-02-28] MEDS: MIRALAX PO SCH ×2 (10:20→23:23)
[2018-02-28] MEDS: VICTOZA SUBQ SCH (10:21)
--- NOTE | 2018-02-28 20:03 | PROGRESS NOTE ---
DATE: 02/28/2018 SUBJECTIVE: The patient has no major complaints. She is lying in bed. No major issues overnight. Sugars have been overall well controlled. PHYSICAL EXAMINATION: Vital signs: Blood pressure is 137/89, heart rate 89, respiratory rate 20, temperature 99.2 degrees. Cardiovascular: Regular rate and rhythm. Pulmonary: Bilateral breath sounds clear to auscultation. GI: Soft, nontender, nondistended. Bowel sounds are positive. LABORATORY DATA: No new data today. PROBLEM LIST: 1. Dementia with behavioral disturbance. She seems to be doing okay. Continue regular medications. 2. Hypertension, stable on current medications. 3. Diabetes, overall well controlled although she kind of goes up and down on her control. Will kind of see how she does. 4. Waiting on guardianship for long-term placement. cc: Zachery Bill MD
[2018-02-28] MEDS: BASAGLAR SUBQ SCH (23:23)
[2018-03-01] MEDS: ATIVAN IM PRN (00:16)
[2018-03-01] MEDS: HUMULIN R (PARKWAY) SUBQ SCH ×4 (06:15→21:04)
[2018-03-01] MEDS: NORVASC PO SCH (09:48)
[2018-03-01] MEDS: VIMPAT PO SCH ×2 (09:48→21:04)
[2018-03-01] MEDS: SEROQUEL PO SCH ×2 (09:48→21:04)
[2018-03-01] MEDS: TOPROL XL PO SCH (09:49)
[2018-03-01] MEDS: MIRALAX PO SCH ×2 (09:49→21:04)
[2018-03-01] MEDS: VICTOZA SUBQ SCH (09:49)
--- NOTE | 2018-03-01 15:00 | PROGRESS NOTE ---
DATE: 03/01/2018 SUBJECTIVE: The patient has no focal complaints. She is lying in bed, per usual. OBJECTIVE: Vital signs: Her blood pressure is 174/87, heart rate 89, respiratory 16, temperature 98.2 degrees. Cardiovascular: Regular rate and rhythm. Pulmonary: Bilateral breath sounds. Clear to auscultation. GI: Soft, nontender, nondistended. Bowel sounds are positive. LABORATORY DATA: No new data today. Sugars 182, 184, 201. PROBLEM LIST: 1. Dementia, vascular type with intermittent behavioral disturbance. She is on chronic therapy. Seems stable. 2. Hypertension. Controlled on current medications. 3. Diabetes. She seems to have a steady amount of control today. 4. Seizure disorder is controlled on Vimpat. 5. Disposition. Waiting for guardianship per the state. So, we will see how she does. cc: Zachery Bill MD
[2018-03-01] MEDS: BASAGLAR SUBQ SCH (21:04)
[2018-03-02] MEDS: ATIVAN IM PRN (00:55)
[2018-03-02] MEDS: HUMULIN R (PARKWAY) SUBQ SCH ×4 (07:31→21:38)
[2018-03-02] MEDS: SEROQUEL PO SCH ×2 (10:25→21:36)
[2018-03-02] MEDS: NORVASC PO SCH (10:25)
[2018-03-02] MEDS: TOPROL XL PO SCH (10:25)
[2018-03-02] MEDS: VIMPAT PO SCH ×2 (10:25→21:36)
[2018-03-02] MEDS: MIRALAX PO SCH ×2 (10:36→21:37)
[2018-03-02] MEDS: VICTOZA SUBQ SCH (10:36)
--- NOTE | 2018-03-02 12:29 | PROGRESS NOTE ---
DATE: 03/02/2018 SUBJECTIVE: Patient with no new complaints. She is somewhat confused and disoriented this morning. OBJECTIVE: Vital Signs: Reviewed. Temperature 97.6 degrees, pulse 84, respiratory rate 18, blood pressure 176/96. Physical unchanged. ASSESSMENT: 1. Dementia with behavioral disturbances, at her baseline. She does not require restraints. 2. Hypertension. 3. Diabetes. PLAN: We will continue to await guardianship for long-term placement. cc: Ricky Daley MD
[2018-03-02] MEDS: BASAGLAR SUBQ SCH (21:38)
[2018-03-03] MEDS: HUMULIN R (PARKWAY) SUBQ SCH ×4 (07:00→21:36)
[2018-03-03] MEDS: MIRALAX PO SCH ×2 (09:35→20:43)
[2018-03-03] MEDS: NORVASC PO SCH (09:35)
[2018-03-03] MEDS: SEROQUEL PO SCH ×2 (09:35→20:42)
[2018-03-03] MEDS: TOPROL XL PO SCH (09:36)
[2018-03-03] MEDS: VICTOZA SUBQ SCH (09:42)
[2018-03-03] MEDS: VIMPAT PO SCH ×2 (11:19→20:43)
--- NOTE | 2018-03-03 20:02 | PROGRESS NOTE ---
DATE: 03/03/2018 SUBJECTIVE: Patient has no new complaints. OBJECTIVE: Vital signs reviewed and stable. Physical exam with no changes. ASSESSMENT: 1. Dementia. 2. Hypertension. PLAN: Will continue patient in the hospital until further adequate plans can be made for transfer to a more permanent living facility than her current hospital room. cc: Ricky Daley MD
[2018-03-03] MEDS: GEODON IM PRN (20:43)
[2018-03-03] MEDS: BASAGLAR SUBQ SCH (21:35)
[2018-03-04] MEDS: HUMULIN R (PARKWAY) SUBQ SCH ×4 (06:35→20:43)
[2018-03-04] MEDS: MIRALAX PO SCH ×2 (08:34→20:43)
[2018-03-04] MEDS: SEROQUEL PO SCH ×2 (08:34→20:44)
[2018-03-04] MEDS: VIMPAT PO SCH ×2 (08:35→20:44)
[2018-03-04] MEDS: NORVASC PO SCH (08:35)
[2018-03-04] MEDS: TOPROL XL PO SCH (08:35)
[2018-03-04] MEDS: VICTOZA SUBQ SCH (08:35)
[2018-03-04] MEDS: BASAGLAR SUBQ SCH (20:43)
--- NOTE | 2018-03-05 00:18 | PROGRESS NOTE ---
DATE: 03/05/2018 SUBJECTIVE: Patient has no complaints. OBJECTIVE: Vital Signs: Reviewed and stable. Blood pressure is actually elevated at 180/88. Physical unchanged. ASSESSMENT: 1. Hypertension. We will continue to follow her blood pressures, adjust medicines if needed. 2. Dementia. 3. Others. PLAN: We will continue to follow until she has adequate discharge plans. cc: Ricky Daley MD
[2018-03-05] MEDS: HUMULIN R (PARKWAY) SUBQ SCH ×4 (06:01→21:57)
[2018-03-05] MEDS: VIMPAT PO SCH ×2 (08:50→21:47)
[2018-03-05] MEDS: MIRALAX PO SCH ×2 (08:50→21:48)
[2018-03-05] MEDS: NORVASC PO SCH (08:50)
[2018-03-05] MEDS: TOPROL XL PO SCH (08:50)
[2018-03-05] MEDS: SEROQUEL PO SCH ×2 (08:50→21:47)
[2018-03-05] MEDS: VICTOZA SUBQ SCH (08:51)
[2018-03-05] MEDS: GEODON IM PRN (21:48)
[2018-03-05] MEDS: BASAGLAR SUBQ SCH (21:48)
--- NOTE | 2018-03-05 22:43 | PROGRESS NOTE ---
DATE: 03/05/2018 SUBJECTIVE: Patient has no complaints. OBJECTIVE: Vital Signs: Reviewed. Temperature 98.3 degrees, pulse 81, BP 163/71. Physical unchanged. ASSESSMENT: 1. Dementia. 2. Hypertension. 3. Diabetes. PLAN: Again, we will continue to await long-term placement. cc: Ricky Daley MD
[2018-03-06] MEDS: HUMULIN R (PARKWAY) SUBQ SCH ×5 (06:57→22:17)
--- NOTE | 2018-03-06 09:31 | PROGRESS NOTE ---
DATE: 03/06/2018 SUBJECTIVE: Patient with no new complaints. OBJECTIVE: Vital signs unchanged and physical exam unchanged. ASSESSMENT: 1. Dementia. 2. Hypertension. 3. Diabetes. PLAN: Will continue patient in the hospital and await the state's response for her to go to a more suitable living facility. cc: Ricky Daley MD
[2018-03-06] MEDS: VICTOZA SUBQ SCH (10:35)
[2018-03-06] MEDS: NORVASC PO SCH (10:35)
[2018-03-06] MEDS: MIRALAX PO SCH ×2 (10:35→22:17)
[2018-03-06] MEDS: TOPROL XL PO SCH (10:36)
[2018-03-06] MEDS: SEROQUEL PO SCH ×2 (10:36→22:16)
[2018-03-06] MEDS: VIMPAT PO SCH ×2 (10:45→22:17)
[2018-03-06] MEDS: BASAGLAR SUBQ SCH (22:18)
[2018-03-07] MEDS: HUMULIN R (PARKWAY) SUBQ SCH ×4 (06:45→22:15)
[2018-03-07] MEDS: VICTOZA SUBQ SCH (10:00)
[2018-03-07] MEDS: TOPROL XL PO SCH (10:00)
[2018-03-07] MEDS: NORVASC PO SCH (10:00)
[2018-03-07] MEDS: SEROQUEL PO SCH ×2 (10:00→22:15)
[2018-03-07] MEDS: VIMPAT PO SCH ×2 (10:00→22:15)
--- NOTE | 2018-03-07 18:13 | PROGRESS NOTE ---
DATE: 03/07/2018 SUBJECTIVE: The patient has no focal complaints. OBJECTIVE: Blood pressure is 142/78, heart rate is 80, respiratory rate of 18, temperature was 97.8 degrees.Cardiovascular: Regular rate and rhythm. Pulmonary: Bilateral breath sounds. Clear to auscultation. GI: Soft, nontender, nondistended. Bowel sounds are positive. LABORATORY DATA: Nothing new. Her sugars 157 to 371. PROBLEM LIST: 1. Dementia, stable on current medications. 2. Hypertension, controlled on current medications. 3. Diabetes is relatively well controlled on current medications. DISPOSITION: Pending placement with [facility] with power of dictating machine transcriber awaiting final process. cc: Zachery Bill MD
[2018-03-07] MEDS: BASAGLAR SUBQ SCH (22:14)
[2018-03-08] MEDS: HUMULIN R (PARKWAY) SUBQ SCH ×3 (06:17→17:17)
[2018-03-08] MEDS: TOPROL XL PO SCH (09:52)
[2018-03-08] MEDS: VIMPAT PO SCH ×2 (09:52→21:56)
[2018-03-08] MEDS: SEROQUEL PO SCH ×2 (09:52→21:55)
[2018-03-08] MEDS: NORVASC PO SCH (09:52)
[2018-03-08] MEDS: VICTOZA SUBQ SCH (09:53)
--- NOTE | 2018-03-08 17:32 | PROGRESS NOTE ---
DATE: 03/08/2018 SUBJECTIVE: Patient without any complaints, she lying in the bed refusing to answer questions currently. PHYSICAL: She is afebrile, temperature 98.3 degrees, pulse 70, respiratory 16, BP 160s over 70s .General: Patient is awake, alert, she is currently in no respiratory distress, she is very pleasant talk with although sometimes she refuses to respond. HEENT: Normocephalic. Neck: Supple. CV: Regular rate. Chest: Clear. Abdomen: Soft. ASSESSMENT: 1. Dementia. 2. Hypertension . 3. Diabetes. PLAN: Will continue patient in the hospital, continue to await the ability and availability to transfer for further care. cc: Ricyk Daley MD
[2018-03-08] MEDS: GEODON IM PRN (21:56)
[2018-03-09] MEDS: BASAGLAR SUBQ SCH (01:59)
[2018-03-09] MEDS: HUMULIN R (PARKWAY) SUBQ SCH ×4 (03:59→15:52)
[2018-03-09] MEDS: SEROQUEL PO SCH ×2 (08:44→21:47)
[2018-03-09] MEDS: VIMPAT PO SCH ×2 (08:44→21:47)
[2018-03-09] MEDS: NORVASC PO SCH (08:44)
[2018-03-09] MEDS: VICTOZA SUBQ SCH (08:45)
[2018-03-09] MEDS: TOPROL XL PO SCH (08:45)
--- NOTE | 2018-03-09 15:25 | PROGRESS NOTE ---
DATE: 03/09/2018 SUBJECTIVE: The patient is sitting up in bedside chair. No complaints voiced. OBJECTIVE: Vital signs: Temperature 98.2 degrees, pulse 96, respirations 18, blood pressure 175/92, saturating 100% on room air. HEENT: Normocephalic, atraumatic. Normal ENT inspection. Oropharynx and nares are clear. Eyes: Pupils are equal, round, reactive to light and accommodation. Extraocular movements are intact. Neck: Normal inspection. Normal range of motion. Lungs: Clear to auscultation bilaterally, with equal lung expansion and chest wall movement. Cardiovascular: Regular rate and rhythm. No murmurs, rubs, or gallops. Abdomen: Soft, nontender, nondistended. Bowel sounds are present x4 quadrants. Musculoskeletal: Able to move all extremities well. Has 4/5 strength. Neurological: The cranial nerves 2-12 appear grossly intact. ASSESSMENT: 1. Dementia. 2. Hypertension. 3. Diabetes. PLAN: Our plan we will continue to follow the patient. We await availability for transfer for further care, as she has a court date pending through [facility]. Dictated by EDDIE Vicente for Ventura Pleitez MD cc: EDDIE Vicente MD
[2018-03-10] MEDS: HUMULIN R (PARKWAY) SUBQ SCH ×5 (04:15→21:56)
[2018-03-10] MEDS: BASAGLAR SUBQ SCH ×2 (04:15→21:56)
[2018-03-10] MEDS: VICTOZA SUBQ SCH (09:25)
[2018-03-10] MEDS: VIMPAT PO SCH ×2 (09:25→21:55)
[2018-03-10] MEDS: TOPROL XL PO SCH (09:25)
[2018-03-10] MEDS: SEROQUEL PO SCH ×2 (09:25→21:55)
[2018-03-10] MEDS: NORVASC PO SCH (09:25)
--- NOTE | 2018-03-10 09:52 | PROGRESS NOTE ---
DATE: 03/10/2018 SUBJECTIVE: Patient is sitting up in bed. No complaints voiced. OBJECTIVE: Vital signs: Temp 98.1 degrees, pulse 93, respirations 20, blood pressure 181/86, saturating 97% on room air. HEENT: Normocephalic, atraumatic. Normal ENT inspection. Eyes: Pupils equal, round, reactive to light and accommodation. Extraocular movements intact. Neck: Normal inspection, normal range of motion. Lungs: Were clear to auscultation bilaterally with equal lung expansion. Chest wall movement. Heart: With regular rate and rhythm. No murmurs, rubs, or gallops. Abdomen: Soft, nontender, nondistended. Bowel sounds are present x4 quadrants. Musculoskeletal: Has 5/5 strength x4 extremities. Moves all extremities well. Neurological: The cranial nerves 2-12 appear grossly intact. LABORATORY DATA: No new labs today. ASSESSMENT: 1. Dementia. 2. Hypertension. 3. Diabetes. OUR PLAN: We continue to follow the patient, awaiting bed availability for transfer for further care, as she has a court date pending through [facility]. Dictated by EDDIE Vicente for Ventura Pleitez MD cc: EDDIE Vicente MD
[2018-03-10] MEDS: GEODON IM PRN ×2 (11:24→22:38)
[2018-03-11] MEDS: HUMULIN R (PARKWAY) SUBQ SCH ×4 (06:37→22:07)
[2018-03-11] MEDS: VICTOZA SUBQ SCH (09:59)
[2018-03-11] MEDS: TOPROL XL PO SCH (10:00)
[2018-03-11] MEDS: NORVASC PO SCH (10:00)
[2018-03-11] MEDS: VIMPAT PO SCH ×2 (10:01→22:00)
[2018-03-11] MEDS: SEROQUEL PO SCH ×2 (10:01→22:00)
--- NOTE | 2018-03-11 11:42 | PROGRESS NOTE ---
DATE: 03/11/2018 SUBJECTIVE: The patient is sitting up in bedside chair. No complaints voiced. Was happy to be able to speak with her , Molly, today on the phone. OBJECTIVE: Vital signs: Temperature 98.1 degrees, pulse 79, respirations 16, blood pressure 167/72. Saturating 100% on room air. HEENT: Is normocephalic, atraumatic. Normal ENT inspection. Oropharynx and nares are clear. Eyes: Pupils are equal, round, reactive to light and accommodation. Extraocular movements are intact. Neck: Normal inspection, normal range of motion. Lungs: Clear to auscultation bilaterally with equal lung expansion and chest wall movement. Heart: With regular rate and rhythm. No murmurs, rubs, or gallops. Abdomen: Soft, nontender, nondistended. Bowel sounds are present x4 quadrants. Neurological: The cranial nerves 2-12 appear grossly intact. LABORATORY DATA: No new labs today. ASSESSMENT: 1. Dementia. 2. Hypertension. 3. Diabetes. PLAN: Continue to follow the patient. We continue to wait for [facility] and the court system for transfer to [facility] when bed available. Dictated by EDDIE Vicente for Ventura Pleitez MD cc: EDDIE Vicente MD
[2018-03-11] MEDS: BASAGLAR SUBQ SCH (22:00)
--- NOTE | 2018-03-12 09:17 | PROGRESS NOTE ---
DATE: 03/12/2018 SUBJECTIVE: The patient is resting quietly in bed. No complaints voiced at this time. OBJECTIVE: Vital Signs: Temperature 97.9 degrees, pulse 89, respirations 16, blood pressure 156/73, saturating 98% on room air. General: This is an 82-year-old, female lying in the bed, resting quietly. Lungs: Clear to auscultation bilaterally with equal lung expansion and chest wall movement. Heart: Regular rate and rhythm. No murmurs, rubs, or gallops. Abdomen: Soft, nontender, nondistended. Bowel sounds are present x4 quadrants. Neurological: The cranial nerves 2-12 are grossly intact. Labs: No new labs today. ASSESSMENT: 1. Dementia. 2. Hypertension. 3. Diabetes. PLAN: We continue to follow this patient. Awaiting the [facility] court date for custody in order to transfer to a [facility] bed. Dictated by EDDIE Vicente for Ventura Pleitez MD cc: EDDIE Vicente MD
[2018-03-12] MEDS: HUMULIN R (PARKWAY) SUBQ SCH ×4 (10:04→21:06)
[2018-03-12] MEDS: MIRALAX PO SCH ×2 (11:12→20:10)
[2018-03-12] MEDS: NORVASC PO SCH (11:18)
[2018-03-12] MEDS: ASPIRIN PO SCH (11:19)
[2018-03-12] MEDS: PRINIVIL PO SCH ×2 (11:19→20:10)
[2018-03-12] MEDS: JANUVIA PO SCH (11:19)
[2018-03-12] MEDS: SEROQUEL PO SCH ×2 (11:19→20:10)
[2018-03-12] MEDS: TOPROL XL PO SCH (11:19)
[2018-03-12] MEDS: VICTOZA SUBQ SCH (11:20)
[2018-03-12] MEDS: VIMPAT PO SCH ×2 (12:13→20:10)
[2018-03-12] MEDS: GEODON IM PRN (20:10)
[2018-03-12] MEDS: LIPITOR PO SCH (20:10)
[2018-03-12] MEDS: BASAGLAR SUBQ SCH (21:06)
[2018-03-13] MEDS: HUMULIN R (PARKWAY) SUBQ SCH ×4 (06:05→22:01)
[2018-03-13] MEDS: VICTOZA SUBQ SCH (08:47)
[2018-03-13] MEDS: MIRALAX PO SCH ×2 (08:47→22:02)
[2018-03-13] MEDS: VIMPAT PO SCH ×2 (08:48→21:55)
[2018-03-13] MEDS: JANUVIA PO SCH (08:48)
[2018-03-13] MEDS: SEROQUEL PO SCH ×2 (08:48→21:56)
[2018-03-13] MEDS: NORVASC PO SCH (08:48)
[2018-03-13] MEDS: PRINIVIL PO SCH ×2 (08:48→21:56)
[2018-03-13] MEDS: TOPROL XL PO SCH (08:48)
[2018-03-13] MEDS: ASPIRIN PO SCH (08:48)
--- NOTE | 2018-03-13 09:24 | PROGRESS NOTE ---
DATE: 03/13/2018 SUBJECTIVE: Patient is sitting up in bed, smiling, pleasant. No complaints voiced. OBJECTIVE: Vital Signs: Temperature 97.6 degrees, pulse 76, respirations 18, blood pressure 176/94, saturating 100% on room air. HEMNT: Normocephalic, atraumatic. Normal ENT inspection. Oropharynx and nares are clear. Eyes: Pupils are equal, round, and reactive to light and accommodation. Extraocular movements are intact. Neck: Normal inspection. Normal range of motion. Lungs: Clear to auscultation bilaterally with equal lung expansion and chest wall movement. Heart: Regular rate and rhythm. No murmurs, rubs, or gallops. Abdomen: Soft, nontender, nondistended. Bowel sounds are present x4 quadrants. Musculoskeletal: 5/5 strength x4 extremities. Moves all extremities well. Neurological: Cranial nerves 2- 12 are grossly intact. LABORATORY DATA: No new labs today. ASSESSMENT: 1. Dementia. 2. Hypertension. 3. Diabetes. PLAN: We are going to continue to follow the patient. Continue her current medication regimen. We await a court date through [facility] to obtain custody in order to transfer to a assisted bed. Dictated by EDDIE Vicente for Daniel Hahn MD cc: EDDIE Vicente MD patient is clinically stable. Pending [facility]
[2018-03-13] MEDS: LIPITOR PO SCH (21:56)
[2018-03-13] MEDS: GEODON IM PRN (21:57)
[2018-03-13] MEDS: BASAGLAR SUBQ SCH (21:59)
[2018-03-14] MEDS: GEODON IM PRN (03:43)
[2018-03-14] MEDS: HUMULIN R (PARKWAY) SUBQ SCH ×4 (06:33→22:46)
[2018-03-14] MEDS: MIRALAX PO SCH ×2 (10:21→22:46)
[2018-03-14] MEDS: ASPIRIN PO SCH (10:21)
[2018-03-14] MEDS: TOPROL XL PO SCH (10:21)
[2018-03-14] MEDS: SEROQUEL PO SCH ×2 (10:21→22:45)
[2018-03-14] MEDS: VIMPAT PO SCH ×2 (10:22→22:45)
[2018-03-14] MEDS: NORVASC PO SCH (10:22)
[2018-03-14] MEDS: VICTOZA SUBQ SCH (10:22)
[2018-03-14] MEDS: PRINIVIL PO SCH ×2 (10:22→22:46)
[2018-03-14] MEDS: JANUVIA PO SCH (10:22)
--- NOTE | 2018-03-14 10:27 | PROGRESS NOTE ---
DATE: 03/14/2018 SUBJECTIVE: Patient resting quietly in bed. No complaints voiced. OBJECTIVE: Vital signs: Temperature 98.4 degrees, pulse 96, respirations 20, blood pressure 175/97. General: This is an 82-year-old female, who is lying in the bed. No complaints voiced. HENT: Normocephalic, atraumatic. Normal ENT inspection. Oropharynx and nares are clear. Eyes: Pupils are equal, round, reactive to light and accommodation. Extraocular movements are intact. Neck: Normal inspection, normal range of motion. Lungs: Clear to auscultation bilaterally with equal lung expansion and chest wall movement. Heart: Regular rate and rhythm. No murmurs, rubs, or gallops. Abdomen: Soft, nontender, nondistended. Bowel sounds are present x4 quadrants. Musculoskeletal: She has 5/5 strength x4 extremities. Moves all extremities well. Neurological: The cranial nerves 2-12 appear grossly intact. LABORATORY DATA: No new labs today. ASSESSMENT: 1. Dementia. 2. Hypertension. 3. Diabetes. PLAN: We are going to continue to follow the patient. Continue current medication regimen. We will await a court date through [place] to obtain custody in order to transfer to a [facility] bed. Dictated by EDDIE Vicente for Daniel Hahn MD cc: EDDIE Vicente MD
[2018-03-14] MEDS: BASAGLAR SUBQ SCH (22:45)
[2018-03-14] MEDS: LIPITOR PO SCH (22:46)
[2018-03-15] MEDS: HUMULIN R (PARKWAY) SUBQ SCH ×4 (06:59→23:07)
[2018-03-15] MEDS: SEROQUEL PO SCH ×3 (08:01→23:06)
--- NOTE | 2018-03-15 09:38 | PROGRESS NOTE ---
DATE: 03/15/2018 SUBJECTIVE: Patient resting quietly in bed at this time. Staff reports earlier this morning patient was becoming mildly agitated and attempted to kick one of the staff, but at this time she is pleasant and calm with no complaints voiced. OBJECTIVE: Vital signs: Temperature 97.9 degrees, pulse 96, respirations 20, blood pressure 157/93, saturating 94% on room air. HEENT: Normocephalic, atraumatic. Normal ENT inspection. Oropharynx and nares are clear. Eyes: Pupils are equal, round, reactive to light and accommodation. Extraocular movements are intact. Neck: Normal inspection. Normal range of motion. Lungs: Clear to auscultation bilaterally with equal lung expansion and chest wall movement. Heart: Regular rate and rhythm. No murmurs, rubs, or gallops. Abdomen: Soft, nontender, nondistended. Bowel sounds are present x4 quadrants. Musculoskeletal: The cranial nerves 2-12 are grossly intact. LABORATORY DATA: No new laboratories this morning at this time, but we are going to order a BMP this morning since she has had a little change in her mood and behavior, and we have not checked laboratories in several days. ASSESSMENT: 1. Dementia. 2. Hypertension. 3. Diabetes. PLAN: We are going to continue to follow the patient. Continue current medication regimen. As stated earlier, we are going to check a BMP this morning and we continue to await a court date as patient is through [facility] to obtain custody in order to transfer to a skilled nursing bed. Dictated by EDDIE Vicente for Daniel Hahn MD cc: EDDIE Vicente MD
[2018-03-15 09:41] LABS: AGAP 10; BUN 21 mg/dL (8-22); CALCIUM 9.9 mg/dL (8.8-10.2); CHLORIDE 104 mmol/L (98-107); COSMO 295; CREATININE 0.8 mg/dL (0.5-0.9); ESTIMATED GFR > 60; GLUCOSE 318 mg/dL (70-104); POTASSIUM 3.6 mmol/L (3.5-5.1); SODIUM 140 mmol/L (136-145); TCO2 26 mmol/L (25-35)
[2018-03-15] MEDS: ASPIRIN PO SCH (10:41)
[2018-03-15] MEDS: VIMPAT PO SCH ×2 (10:41→23:06)
[2018-03-15] MEDS: JANUVIA PO SCH (10:41)
[2018-03-15] MEDS: TOPROL XL PO SCH (10:41)
[2018-03-15] MEDS: PRINIVIL PO SCH ×2 (10:42→23:06)
[2018-03-15] MEDS: NORVASC PO SCH (10:42)
[2018-03-15] MEDS: VICTOZA SUBQ SCH (10:43)
[2018-03-15] MEDS: MIRALAX PO SCH ×2 (14:36→23:07)
[2018-03-15] MEDS: BASAGLAR SUBQ SCH (23:06)
[2018-03-15] MEDS: LIPITOR PO SCH (23:07)
[2018-03-16] MEDS: VICTOZA SUBQ SCH (08:33)
[2018-03-16] MEDS: SEROQUEL PO SCH ×2 (08:33→21:42)
[2018-03-16] MEDS: HUMULIN R (PARKWAY) SUBQ SCH ×4 (08:33→20:40)
[2018-03-16] MEDS: ASPIRIN PO SCH (08:33)
[2018-03-16] MEDS: MIRALAX PO SCH ×2 (08:34→22:11)
[2018-03-16] MEDS: TOPROL XL PO SCH (08:34)
[2018-03-16] MEDS: PRINIVIL PO SCH ×2 (08:34→21:42)
[2018-03-16] MEDS: JANUVIA PO SCH (08:34)
[2018-03-16] MEDS: NORVASC PO SCH (08:34)
[2018-03-16] MEDS: VIMPAT PO SCH ×2 (08:34→21:41)
[2018-03-16] MEDS: BASAGLAR SUBQ SCH (20:40)
[2018-03-16] MEDS: LIPITOR PO SCH (21:42)
--- NOTE | 2018-03-16 22:20 | PROGRESS NOTE ---
DATE: 03/16/2018 SUBJECTIVE: Patient with no new complaints. PHYSICAL: Temperature 98, pulse 74, respiratory 22, BP 178/82.General: Patient is awake, she is in no respiratory distress lying flat in bed. HEENT: Normocephalic. Neck: Supple. CV: Regular rate. Chest: Clear. Abdomen: Soft. Extremities: Moves all extremities. ASSESSMENT: 1. Dementia . 2. Hypertension. 3. Diabetes. 4. Remote history of seizures. PLAN: Will continue patient the hospital, continue to treat symptomatically and wait for further rehab bed to become available. cc: Ricky Daley MD
[2018-03-17] MEDS: HUMULIN R (PARKWAY) SUBQ SCH ×4 (06:45→20:58)
[2018-03-17] MEDS: TOPROL XL PO SCH (09:52)
[2018-03-17] MEDS: VICTOZA SUBQ SCH (09:52)
[2018-03-17] MEDS: VIMPAT PO SCH ×2 (09:52→20:57)
[2018-03-17] MEDS: NORVASC PO SCH (09:52)
[2018-03-17] MEDS: ASPIRIN PO SCH (09:53)
[2018-03-17] MEDS: JANUVIA PO SCH (09:53)
[2018-03-17] MEDS: PRINIVIL PO SCH ×2 (09:53→20:57)
[2018-03-17] MEDS: SEROQUEL PO SCH ×2 (09:53→20:58)
[2018-03-17] MEDS: MIRALAX PO SCH ×2 (09:53→20:58)
[2018-03-17] MEDS: BASAGLAR SUBQ SCH (20:57)
[2018-03-17] MEDS: LIPITOR PO SCH (20:57)
--- NOTE | 2018-03-17 23:32 | PROGRESS NOTE ---
DATE: 03/17/2018 SUBJECTIVE: The patient is lying in bed. She is awake. She is in no distress. She does not answer questions. PHYSICAL EXAMINATION: Temperature 97.5, pulse 77, respiratory rate 18, blood pressure 153/60.General: Patient is awake, alert. She is in no current distress. HEENT: Normocephalic. Neck: Supple. Cardiovascular: Regular rate. Chest: Clear. Abdomen: Soft, nondistended. Extremities: Moves all extremities. ASSESSMENT: 1. Dementia. 2. Hypertension. 3. Diabetes. 4. Situational anxiety and depression. PLAN: We will continue the patient in the hospital until further long-term plans can be made. cc: Ricky Daley MD
[2018-03-18] MEDS: HUMULIN R (PARKWAY) SUBQ SCH ×4 (07:00→21:20)
[2018-03-18] MEDS: ASPIRIN PO SCH (08:31)
[2018-03-18] MEDS: MIRALAX PO SCH ×2 (08:31→20:21)
[2018-03-18] MEDS: TOPROL XL PO SCH (08:31)
[2018-03-18] MEDS: NORVASC PO SCH (08:31)
[2018-03-18] MEDS: JANUVIA PO SCH (08:31)
[2018-03-18] MEDS: SEROQUEL PO SCH ×2 (08:31→20:20)
[2018-03-18] MEDS: PRINIVIL PO SCH ×2 (08:31→20:20)
[2018-03-18] MEDS: VICTOZA SUBQ SCH (08:32)
[2018-03-18] MEDS: VIMPAT PO SCH ×2 (08:32→20:20)
[2018-03-18] MEDS: LIPITOR PO SCH (20:21)
[2018-03-18] MEDS: GEODON IM PRN (21:19)
[2018-03-18] MEDS: BASAGLAR SUBQ SCH (21:19)
--- NOTE | 2018-03-18 23:20 | PROGRESS NOTE ---
DATE: 03/18/2018 SUBJECTIVE: No complaints. PHYSICAL EXAMINATION: Unchanged. Vital Signs: Reviewed and stable. ASSESSMENT: 1. Dementia. 2. Hypertension. 3. Diabetes. PLAN: Continue to await further plans per the state. cc: Ricky Daley MD
[2018-03-19] MEDS: HUMULIN R (PARKWAY) SUBQ SCH ×4 (06:30→21:17)
[2018-03-19] MEDS: MIRALAX PO SCH ×2 (09:38→20:22)
[2018-03-19] MEDS: VIMPAT PO SCH ×2 (09:39→20:23)
[2018-03-19] MEDS: NORVASC PO SCH (09:39)
[2018-03-19] MEDS: ASPIRIN PO SCH (09:39)
[2018-03-19] MEDS: JANUVIA PO SCH (09:39)
[2018-03-19] MEDS: PRINIVIL PO SCH ×2 (09:39→20:22)
[2018-03-19] MEDS: TOPROL XL PO SCH (09:39)
[2018-03-19] MEDS: SEROQUEL PO SCH ×2 (09:39→20:22)
[2018-03-19] MEDS: VICTOZA SUBQ SCH (09:40)
[2018-03-19] MEDS: GEODON IM PRN (20:22)
[2018-03-19] MEDS: LIPITOR PO SCH (20:22)
[2018-03-19] MEDS: BASAGLAR SUBQ SCH (21:17)
--- NOTE | 2018-03-19 22:34 | PROGRESS NOTE ---
DATE: 03/19/2018 SUBJECTIVE: Patient with no complaints. PHYSICAL EXAMINATION: Unchanged.Vital Signs: Reviewed and stable. ASSESSMENT: 1. Dementia. 2. Hypertension. 3. Diabetes. PLAN: We will continue comfort care. Further orders as needed. cc: Ricky Daley MD
[2018-03-20] MEDS: HUMULIN R (PARKWAY) SUBQ SCH ×4 (06:31→21:44)
--- NOTE | 2018-03-20 10:34 | PROGRESS NOTE ---
DATE: 03/20/2018 SUBJECTIVE: Patient has no new complaints. She is lying in the bed. She is in no distress. OBJECTIVE: Vital signs reviewed. Temperature 98, pulse 81, BP 142/64. General: Patient is awake, alert. She is in no distress. Physical exam is unchanged. ASSESSMENT: 1. Hypertension. 2. Diabetes. 3. Dementia. PLAN: We will continue symptomatic treatment as needed. Continue to follow. Await final transfer plans to final residence and continue to follow. cc: Ricky Daley MD
[2018-03-20] MEDS: ASPIRIN PO SCH (11:41)
[2018-03-20] MEDS: PRINIVIL PO SCH ×2 (11:41→21:46)
[2018-03-20] MEDS: SEROQUEL PO SCH ×2 (11:41→21:46)
[2018-03-20] MEDS: VIMPAT PO SCH ×2 (11:42→21:45)
[2018-03-20] MEDS: NORVASC PO SCH (11:42)
[2018-03-20] MEDS: JANUVIA PO SCH (11:42)
[2018-03-20] MEDS: TOPROL XL PO SCH (11:42)
[2018-03-20] MEDS: MIRALAX PO SCH ×2 (11:43→21:56)
[2018-03-20] MEDS: VICTOZA SUBQ SCH (11:44)
[2018-03-20] MEDS: LIPITOR PO SCH (21:46)
[2018-03-20] MEDS: BASAGLAR SUBQ SCH (21:56)
[2018-03-21] MEDS: SEROQUEL PO SCH ×3 (00:45→21:02)
[2018-03-21] MEDS: VIMPAT PO SCH ×3 (00:46→21:02)
[2018-03-21] MEDS: PRINIVIL PO SCH ×3 (00:46→21:02)
[2018-03-21] MEDS: BASAGLAR SUBQ SCH ×2 (00:46→21:02)
[2018-03-21] MEDS: ASPIRIN PO SCH (11:20)
[2018-03-21] MEDS: TOPROL XL PO SCH (11:20)
[2018-03-21] MEDS: MIRALAX PO SCH ×2 (11:20→21:03)
[2018-03-21] MEDS: VICTOZA SUBQ SCH (11:21)
[2018-03-21] MEDS: JANUVIA PO SCH (11:21)
[2018-03-21] MEDS: HUMULIN R (PARKWAY) SUBQ SCH ×3 (11:36→21:03)
[2018-03-21] MEDS: NORVASC PO SCH (11:36)
--- NOTE | 2018-03-21 19:33 | PROGRESS NOTE ---
DATE: 03/21/2018 SUBJECTIVE: Patient has no complaints. OBJECTIVE: Vital Signs: Reviewed. She is afebrile. Blood pressures are stable. She is lying flatly in the bed. She is in no distress. Physical exam is unchanged. ASSESSMENT: 1. Dementia. 2. Diabetes. 3. Hypertension. PLAN: Will continue patient in the hospital. Blood sugars continue to be erratic, depends on her eating, currently between 38 and 210. We will continue to follow. cc: Ricky Daley MD
[2018-03-21] MEDS: LIPITOR PO SCH (21:02)
[2018-03-22] MEDS: HUMULIN R (PARKWAY) SUBQ SCH ×4 (06:24→20:48)
[2018-03-22] MEDS: JANUVIA PO SCH (09:56)
[2018-03-22] MEDS: PRINIVIL PO SCH ×2 (09:57→20:41)
[2018-03-22] MEDS: VIMPAT PO SCH ×2 (09:57→20:41)
[2018-03-22] MEDS: MIRALAX PO SCH ×2 (09:57→20:53)
[2018-03-22] MEDS: SEROQUEL PO SCH ×2 (09:57→20:41)
[2018-03-22] MEDS: ASPIRIN PO SCH (09:57)
[2018-03-22] MEDS: NORVASC PO SCH (09:57)
[2018-03-22] MEDS: TOPROL XL PO SCH (09:57)
[2018-03-22] MEDS: VICTOZA SUBQ SCH (09:59)
--- NOTE | 2018-03-22 12:43 | PROGRESS NOTE ---
DATE: 03/22/2018 SUBJECTIVE: Patient has no new complaints. OBJECTIVE: Vital signs: Temperature 97.9, pulse 73, respiratory 16, blood pressure 169/84. General: Patient is awake, alert. She is in no distress. Physical is unchanged. ASSESSMENT: Dementia, diabetes, hypertension. PLAN: Continue symptomatic care and that she can transition to further long-term residence. cc: Ricky Daley MD
[2018-03-22] MEDS: BASAGLAR SUBQ SCH (20:40)
[2018-03-22] MEDS: LIPITOR PO SCH (20:41)
[2018-03-23] MEDS: HUMULIN R (PARKWAY) SUBQ SCH ×4 (06:27→21:22)
[2018-03-23] MEDS: ASPIRIN PO SCH (08:55)
[2018-03-23] MEDS: JANUVIA PO SCH (08:55)
[2018-03-23] MEDS: TOPROL XL PO SCH (08:56)
[2018-03-23] MEDS: SEROQUEL PO SCH ×2 (08:56→21:22)
[2018-03-23] MEDS: PRINIVIL PO SCH ×2 (08:56→21:22)
[2018-03-23] MEDS: VIMPAT PO SCH ×2 (08:56→21:23)
[2018-03-23] MEDS: NORVASC PO SCH (08:56)
[2018-03-23] MEDS: VICTOZA SUBQ SCH (09:15)
--- NOTE | 2018-03-23 14:45 | PROGRESS NOTE ---
DATE: 03/23/2018 SUBJECTIVE: She has no complaints. Nothing is going on with his patient actively as far as no major issues overnight. OBJECTIVE: Blood pressure 175/79, heart rate 90, respiratory rate 16, temperature 98.3 degrees.Cardiovascular: Regular rate and rhythm. Pulmonary: Bilateral breath sounds. Clear to auscultation. GI: Was soft, nontender, nondistended. Bowel sounds are positive. LABORATORY DATA: I do not think we have anything today her sugars have been 100s to 200s. PROBLEM LIST: Dementia, diabetes, intermittent hypertension. She is a [employer] case now waiting for long-term placement. We will continue to follow closely. cc: Zachery Bill MD
[2018-03-23] MEDS: BASAGLAR SUBQ SCH (21:22)
[2018-03-23] MEDS: LIPITOR PO SCH (21:22)
[2018-03-24] MEDS: GEODON IM PRN ×2 (00:07→20:51)
[2018-03-24] MEDS: HUMULIN R (PARKWAY) SUBQ SCH ×4 (06:38→20:52)
[2018-03-24] MEDS: ASPIRIN PO SCH (08:48)
[2018-03-24] MEDS: NORVASC PO SCH (08:49)
[2018-03-24] MEDS: PRINIVIL PO SCH ×2 (08:49→20:52)
[2018-03-24] MEDS: VIMPAT PO SCH ×2 (08:49→20:51)
[2018-03-24] MEDS: TOPROL XL PO SCH (08:49)
[2018-03-24] MEDS: SEROQUEL PO SCH ×2 (08:49→20:52)
[2018-03-24] MEDS: JANUVIA PO SCH (08:49)
[2018-03-24] MEDS: VICTOZA SUBQ SCH (08:51)
--- NOTE | 2018-03-24 16:14 | PROGRESS NOTE ---
DATE: 03/24/2018 SUBJECTIVE: She is sitting up in bed. No major complaints. OBJECTIVE: Blood pressure is 151/92, heart rate 94, respiratory rate 18, temperature 97.6, 100% on room air.Cardiovascular: Regular rate and rhythm. Pulmonary: Bilateral breath sounds. Clear to auscultation. LABORATORY DATA: No big changes. Blood sugar is 168 to 265. PROBLEM LIST: 1. Vascular dementia stable on current medications. 2. Hypertension. We will continue regular medications and follow. 3. Diabetes, stable currently. 4. Disposition: Waiting for long-term placement. We will continue to follow. cc: Zachery Bill MD
[2018-03-24] MEDS: BASAGLAR SUBQ SCH (20:51)
[2018-03-24] MEDS: LIPITOR PO SCH (20:52)
[2018-03-25] MEDS: HUMULIN R (PARKWAY) SUBQ SCH ×4 (06:06→20:54)
[2018-03-25] MEDS: ASPIRIN PO SCH (09:59)
[2018-03-25] MEDS: TOPROL XL PO SCH (09:59)
[2018-03-25] MEDS: PRINIVIL PO SCH ×2 (09:59→20:53)
[2018-03-25] MEDS: NORVASC PO SCH (09:59)
[2018-03-25] MEDS: SEROQUEL PO SCH ×2 (09:59→20:54)
[2018-03-25] MEDS: JANUVIA PO SCH (09:59)
[2018-03-25] MEDS: VICTOZA SUBQ SCH ×2 (10:03→10:28)
[2018-03-25] MEDS: VIMPAT PO SCH ×2 (10:04→20:53)
[2018-03-25] MEDS: HYDROCHLOROTHIAZIDE PO SCH (17:52)
[2018-03-25] MEDS: LIPITOR PO SCH (20:53)
[2018-03-25] MEDS: BASAGLAR SUBQ SCH (20:54)
[2018-03-25] MEDS: GEODON IM PRN (22:57)
--- NOTE | 2018-03-26 01:19 | PROGRESS NOTE ---
DATE: 03/25/2018 SUBJECTIVE: She is sitting up in bed. No major complaints. OBJECTIVE: Blood pressure is 162/86, heart rate of 84, respiratory rate of 14, temperature is 98.1. Cardiovascular: Regular rate and rhythm. Pulmonary: Bilateral breath sounds. Clear to auscultation. Gastrointestinal: Soft, nontender, nondistended. Bowel sounds are positive. LABORATORY DATA: No new data. ASSESSMENT AND PLAN: 1. Vascular dementia, stable on current medications. 2. Hypertension, fairly well controlled on current medications. 3. Diabetes, controlled on her regular medicines. 4. Her hypertension she is on Norvasc, lisinopril, metoprolol. We may want to consider maybe a low-dose diuretic. We will see. Continue to follow. cc: Zachery Bill MD
[2018-03-26] MEDS: HUMULIN R (PARKWAY) SUBQ SCH ×4 (06:02→20:35)
[2018-03-26 08:18] LABS: AGAP 11; BUN 18 mg/dL (8-22); CHLORIDE 109 mmol/L (98-107); COSMO 292; CREATININE 0.6 mg/dL (0.5-0.9); ESTIMATED GFR > 60; GLUCOSE 62 mg/dL (70-104); POTASSIUM 3.8 mmol/L (3.5-5.1); SODIUM 147 mmol/L (136-145); TCO2 27 mmol/L (25-35)
[2018-03-26] MEDS: VICTOZA SUBQ SCH (10:13)
[2018-03-26] MEDS: SEROQUEL PO SCH ×2 (10:17→20:34)
[2018-03-26] MEDS: TOPROL XL PO SCH (10:17)
[2018-03-26] MEDS: ASPIRIN PO SCH (10:17)
[2018-03-26] MEDS: NORVASC PO SCH (10:17)
[2018-03-26] MEDS: HYDROCHLOROTHIAZIDE PO SCH (10:17)
[2018-03-26] MEDS: JANUVIA PO SCH (10:18)
[2018-03-26] MEDS: PRINIVIL PO SCH ×2 (10:18→20:35)
[2018-03-26] MEDS: VIMPAT PO SCH ×2 (10:18→20:35)
--- NOTE | 2018-03-26 19:06 | PROGRESS NOTE ---
DATE: 03/26/2018 SUBJECTIVE: Patient has no focal complaints. OBJECTIVE: Vital Signs: Stable. 161/71, heart rate 86, respiratory rate 18, temperature 97.6, 100% on room air. Cardiovascular: Regular rate and rhythm. Pulmonary: Bilateral breath sounds. Clear to auscultation. Gastrointestinal: Soft, nontender, nondistended. Bowel sounds are positive. Extremity: No clubbing or cyanosis. Lymphatic: No peripheral edema. Neurologic: Nonfocal. LABORATORY DATA: As described. Sodium is 147 today. Sugars 62, but she has had some normal blood sugars independent. ASSESSMENT AND PLAN: 1. Vascular dementia. We will continue treatment and follow. 2. Hypertension. We will continue treatment and follow. 3. Diabetes, overall controlled. 4. Hypertension. I think we added a little bit of diuretic. She seems to be doing okay. DISPOSITION: Pending her clinical status we will continue to follow closely. cc: Zachery Bill MD
[2018-03-26] MEDS: GEODON IM PRN (20:34)
[2018-03-26] MEDS: BASAGLAR SUBQ SCH (20:34)
[2018-03-26] MEDS: LIPITOR PO SCH (20:35)
[2018-03-27] MEDS: HUMULIN R (PARKWAY) SUBQ SCH ×4 (06:02→22:10)
[2018-03-27] MEDS: VICTOZA SUBQ SCH (09:15)
[2018-03-27] MEDS: HYDROCHLOROTHIAZIDE PO SCH (09:16)
[2018-03-27] MEDS: PRINIVIL PO SCH ×2 (09:16→22:10)
[2018-03-27] MEDS: ASPIRIN PO SCH (09:16)
[2018-03-27] MEDS: SEROQUEL PO SCH ×2 (09:16→22:10)
[2018-03-27] MEDS: VIMPAT PO SCH ×2 (09:16→22:10)
[2018-03-27] MEDS: JANUVIA PO SCH (09:16)
[2018-03-27] MEDS: NORVASC PO SCH (09:16)
[2018-03-27] MEDS: TOPROL XL PO SCH (09:16)
--- NOTE | 2018-03-27 16:48 | PROGRESS NOTE ---
DATE: 03/27/2018 SUBJECTIVE: She is awake and alert today. She is talking. Yesterday, she just kind of looked at you and did not say anything. OBJECTIVE: Vital Signs: Blood pressure 161/84, heart rate 98, respiratory rate 20, temperature 97.7 degrees, 97% on room air. Cardiovascular: Regular rate and rhythm. Pulmonary: Bilateral breath sounds. Clear to auscultation. GI: Soft, nontender, nondistended. Bowel sounds positive. LABORATORY DATA: No big changes. PROBLEM LIST: 1. Vascular dementia. She seems to be doing okay. 2. Hypertension. Stable. 3. Diabetes. Stable. DISPOSITION: Pending her clinical status. We will continue to follow closely. cc: Zachery Bill MD
[2018-03-27] MEDS: GEODON IM PRN (22:10)
[2018-03-27] MEDS: BASAGLAR SUBQ SCH (22:10)
[2018-03-27] MEDS: LIPITOR PO SCH (22:10)
[2018-03-28] MEDS: VIMPAT PO SCH ×2 (09:58→20:20)
[2018-03-28] MEDS: COLACE PO SCH (09:58)
[2018-03-28] MEDS: JANUVIA PO SCH (09:58)
[2018-03-28] MEDS: SEROQUEL PO SCH ×2 (09:58→20:19)
[2018-03-28] MEDS: ASPIRIN PO SCH (09:58)
[2018-03-28] MEDS: HYDROCHLOROTHIAZIDE PO SCH (09:59)
[2018-03-28] MEDS: VICTOZA SUBQ SCH (09:59)
[2018-03-28] MEDS: PRINIVIL PO SCH ×2 (09:59→20:20)
[2018-03-28] MEDS: NORVASC PO SCH (09:59)
[2018-03-28] MEDS: TOPROL XL PO SCH (09:59)
[2018-03-28] MEDS: HUMULIN R (PARKWAY) SUBQ SCH ×3 (10:43→16:07)
--- NOTE | 2018-03-28 15:02 | PROGRESS NOTE ---
DATE: 03/28/2018 SUBJECTIVE: The patient has no focal complaints. OBJECTIVE: Blood pressure is 148/69, heart rate of 88, respiratory 16, temperature 97.6. Cardiovascular: Regular rate and rhythm. Pulmonary: Bilateral breath sounds clear to auscultation. GI was soft, nontender, nondistended. Bowel sounds are positive. Extremities: No clubbing or cyanosis. Lymphatics: No peripheral edema. Neurological nonfocal. LABORATORY DATA: Sugar 216, 285. IMPRESSION: 1. Vascular dementia. She is intermittently confused. She is on Seroquel 200 b.i.d. 2. Seizure disorder. She has been placed on Vimpat and that seems to be stable. 3. Hyperglycemia. She seems to be doing okay. I am going to bump up her glargine a little bit. DISPOSITION: Still waiting on long-term placement, and she is a mack of the state. They are having difficulty managing her finances because her in-law family, I think, is somehow managing her finances and using her money for care that does not pertain to Mrs. Bajwa, unfortunately. cc: Zachery Bill MD [facility]
[2018-03-28] MEDS: LIPITOR PO SCH (20:20)
[2018-03-28] MEDS: GEODON IM PRN (21:44)
[2018-03-29] MEDS: HUMULIN R (PARKWAY) SUBQ SCH ×5 (00:23→21:57)
[2018-03-29] MEDS: SEROQUEL PO SCH ×3 (00:24→21:58)
[2018-03-29] MEDS: LIPITOR PO SCH ×2 (00:24→21:57)
[2018-03-29] MEDS: VIMPAT PO SCH ×3 (00:24→21:59)
[2018-03-29] MEDS: PRINIVIL PO SCH ×3 (00:24→21:58)
[2018-03-29] MEDS: HYDROCHLOROTHIAZIDE PO SCH (09:40)
[2018-03-29] MEDS: JANUVIA PO SCH (09:40)
[2018-03-29] MEDS: ASPIRIN PO SCH (09:40)
[2018-03-29] MEDS: NORVASC PO SCH (09:40)
[2018-03-29] MEDS: TOPROL XL PO SCH (09:41)
[2018-03-29] MEDS: COLACE PO SCH (09:41)
[2018-03-29] MEDS: VICTOZA SUBQ SCH (09:46)
--- NOTE | 2018-03-29 13:40 | PROGRESS NOTE ---
DATE: 03/29/2018 SUBJECTIVE: She is sitting up in bed. No major complaints, just kind of sitting here looking around, still very confused. OBJECTIVE: Vital Signs: Blood pressure 159/78, heart rate 92, respiratory rate 20, temperature 97.5 degrees. Cardiovascular: Regular rate and rhythm. Pulmonary: Bilateral breath sounds. Clear to auscultation. GI was soft, nontender, nondistended. Bowel sounds were positive. Extremities: No clubbing or cyanosis. Lymphatics: No peripheral edema. Neurological: Nonfocal. LABS: None. PROBLEM LIST: 1. Vascular dementia. She is unable to take care of herself. We are waiting on placement. She is still on her regular medications. 2. Seizure disorders have been controlled on Vimpat. 3. Diabetes is still not completely controlled, up to 439. We did bump up her Lantus. I will bump it up again today. We have done this historically, and she responds, but then she sometimes has some intermittent hypoglycemia. 4. Disposition. Waiting on state approval for power of organizational effectiveness consultant, so that she can go home, or be a mack of the state, and be in a long-term facility. cc: Zachery Bill MD
[2018-03-29 14:31] LABS: BASO# 0.03 X1000 (0.0-0.2); BASO% 0.3 % (0.0-0.8); EOS# 0.16 X1000 (0.0-0.7); EOS% 1.6 % (0.0-10.0); HEMATOCRIT 37.3 % (37.0-47.0); HEMOGLOBIN 12.3 g/dL (12.0-16.0); IMM GRAN# 0.05 X1000 (0.0-0.04); IMM GRAN% 0.5 % (0.0-0.5); LYMPH# 2.36 X1000 (1.2-3.4); LYMPH% 23.3 % (20.5-51.1); MCH 28.2 PG (27-31); MCV 85.6 FL (81-99); MONO# 1.29 X1000 (0.11-0.59); MONO% 12.7 % (1.7-9.3); MPV 10.8 FL (7.4-10.4); NEUT# 6.26 X1000 (1.4-6.5); NEUT% 61.6 % (42.2-75.2); PLT 245 X1000 (130-400); RBC 4.36 XMIL (4.2-5.4); RDW 14.4 % (11.5-14.5); WBC 10.15 X1000 (4.8-10.8)
[2018-03-29 15:02] LABS: AGAP 19; ALBUMIN 3.9 g/dL (3.5-5.0); ALKALINE PHOSPHATASE 119 U/L (32-104); BUN 16 mg/dL (8-22); CALCIUM 9.3 mg/dL (8.8-10.2); CHLORIDE 98 mmol/L (98-107); COSMO 290; CREATININE 0.6 mg/dL (0.5-0.9); ESTIMATED GFR > 60; GLUCOSE 301 mg/dL (70-104); GOT 68 U/L (10-30); GPT 100 U/L (10-36); POTASSIUM 3.7 mmol/L (3.5-5.1); SODIUM 139 mmol/L (136-145); TCO2 22 mmol/L (25-35)
--- NOTE | 2018-03-29 15:48 | PROGRESS NOTE ---
DATE: 03/29/2018 CRITICAL CARE NOTE: SUBJECTIVE: We are called because of an acute episode of seizure-like activity. This occurred around 2 p.m. She was unresponsive, bleeding in the mouth. Dr. Kearney presented. We discussed the issues there. Transferred her to the ICU. She has gotten Ativan. We started Dilantin and we will see how she does. I am going to repeat her head CT because she has had this before and check basic labs and follow. We appreciate input. 32 minute critical care time, butch , Encephalopathy antiepileptics cc: Zachery Bill MD MTDD
--- NOTE | 2018-03-29 19:02 | Diag Imaging Result Doc PS360 ---
EXAM: CT HEAD W/O CONTRAST INDICATION: encephalopathy TECHNIQUE: This exam was performed using automated exposure control, adjustment of mA or kV according to patient size, and/or use of iterative reconstruction technique. 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 There is marked left temporal lobe encephalomalacia underlying a left craniotomy defect is stable. There are stable calcifications along left tentorial leaflet. A couple of chronic appearing lacunar infarcts in the deep velez matter on the left appear stable. There is a stable shunt catheter overlying the left frontal lobe. There is no definite acute infarct given the limited sensitivity of CT versus MRI. There is no discrete intracranial mass, mass effect, or intracranial hemorrhage. IMPRESSION: Extensive chronic changes that appear stable. No definite acute intracranial pathology by CT. Electronically signed by Pacheco Frank 03/29/2018 7:00 PM
[2018-03-29] MEDS: BASAGLAR SUBQ SCH (21:56)
[2018-03-30] MEDS: NS 1,000 ML IV SCH (06:16)
[2018-03-30] MEDS: HUMULIN R (PARKWAY) SUBQ SCH ×4 (06:44→22:17)
[2018-03-30 06:48] LABS: BILIRUBIN URINE NEGATIVE (NEGATIVE); BLOOD URINE NEGATIVE (NEGATIVE); CLARITY CLEAR (CLEAR); COLOR YELLOW; KETONE URINE NEGATIVE (NEGATIVE); LEUKOCYTES URINE NEGATIVE (NEGATIVE); NITRITE URINE NEGATIVE (NEGATIVE); PROTEIN URINE 1+(30 mg/dL) mg/dL (NEGATIVE); UROBILINOGEN URINE NORMAL
[2018-03-30 06:49] LABS: URINE BACTERIA 1+ /HFP; URINE EPITHELIAL CELLS <10 /HPF (<10)
[2018-03-30 06:50] LABS: URINE SOURCE CATH
[2018-03-30] MEDS: TOPROL XL PO SCH (08:01)
[2018-03-30] MEDS: SEROQUEL PO SCH ×2 (08:01→22:18)
[2018-03-30] MEDS: JANUVIA PO SCH (08:01)
[2018-03-30] MEDS: VICTOZA SUBQ SCH (08:01)
[2018-03-30] MEDS: VIMPAT PO SCH ×2 (08:01→22:45)
[2018-03-30] MEDS: PRINIVIL PO SCH ×2 (08:01→22:18)
[2018-03-30] MEDS: ASPIRIN PO SCH (08:01)
[2018-03-30] MEDS: NORVASC PO SCH (08:01)
[2018-03-30] MEDS: HYDROCHLOROTHIAZIDE PO SCH (08:01)
[2018-03-30] MEDS: COLACE PO SCH (08:01)
[2018-03-30] MEDS: STERILE WATER INJ. INJ PRN (08:19)
[2018-03-30] MEDS: GEODON IM PRN (08:19)
[2018-03-30] MEDS: BASAGLAR SUBQ SCH (22:17)
[2018-03-30] MEDS: LIPITOR PO SCH (22:18)
--- NOTE | 2018-03-30 22:22 | PROGRESS NOTE ---
DATE: 03/30/2018 SUBJECTIVE: The patient had quite an eventful day yesterday. She had a seizure, and was unresponsive shortly thereafter. She was moved to the unit for precautions. She did not need resuscitation. Thankfully, she had an uneventful evening since this event. OBJECTIVE: Vital Signs: Reviewed. Temperature 97 degrees, pulse 20, respiratory rate 10 to 14, blood pressure 131/69. General: The patient is awake, alert. She is lying in bed. She is in no respiratory distress. HEENT: Normocephalic. Neck: Supple. Cardiovascular: Regular rate. Chest: Clear, nonlabored. Abdomen: Soft, nondistended. Extremities: She is noted to move all extremities. ASSESSMENT: 1. Seizure. 2. Vascular dementia. 3. Diabetes. 4. Adult failure to thrive. PLAN: We will continue the patient in the hospital. We will move her out of the ICU, back to the floor. She unfortunately is unable to care for herself due to her dementia, and therefore is awaiting placement. We will consider adding Dilantin to her Vimpat. We will continue her medications and follow. cc: Ricky Daley MD
--- NOTE | 2018-03-30 22:40 | CONSULTATION ---
DATE OF CONSULTATION: 03/30/2018 HISTORY: Ms. Bajwa is 82 years old. She has baseline dementia, periods of agitated confusion, in the hospital now awaiting placement. She had an apparent generalized seizure yesterday. Family present at the bedside here did not witness the episode. 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 Family is not aware that she had a definite seizure, but they believe she did take seizure medicine at some point. They do not know the name of the seizure medicine. Following the surgery, family reports she had trouble walking, and she has never walked unaided since then. She began to have a problem with memory several years ago, and that has been gradually more prominent. Family does not know that she has or has not taken medicine to help memory. She has had some falls, but no definite history of significant head injury. Family reports being told she has had "TIA," with nonspecific and generally nonfocal features, but she has never had a diagnosed stroke. She has never used ethanol. Dr. Beltran saw her for Neurology earlier this admission. EEG showed generalized slowing, but no epileptiform discharge. With her possible seizure history, she was started on Vimpat 100 mg b.i.d., and she seemed to tolerate that dose. She did well for several weeks. The seizure yesterday may be the first definite episode in recent weeks. She received a single loading dose of fosphenytoin 1000 mg PE after the episode yesterday, and she tolerated that. Other workup includes noncontrast CT of the head repeated yesterday, showing no change compared to the scan done 01/29/2018. Lab work shows mildly elevated liver enzymes and blood sugar, but nothing that generally would be associated with seizure or encephalopathy. We have lacosamide serum level pending. She has been afebrile. On exam, she is awake and alert, sometimes attentive to family, mostly inattentive, moving all limbs, squirming around in the bed, asking family to hold her hand, calling family member by name. She was not attentive to me. I do not see any obvious focal neurologic problem on limited testing. I did not test her cognitive function. IMPRESSION: 1. Baseline cognitive impairment. If she has not had a cholinesterase inhibitor trial, that could be considered electively. 2. 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 By report, she had gait difficulty after that, and recovered incompletely. 3. Recent seizure and possibility that she has a longstanding seizure disorder. She had tolerated Vimpat 100 mg b.i.d. Renal function looks good on lab work here, so that should not be a problem with lacosamide level. I will increase her Vimpat to 200 mg b.i.d. We can follow her on that dose. If she has another episode of seizure, we will need to consider adding a second seizure medicine. Thanks for asking Neurology to see Ms. Bajwa again. cc: MD DELMI Drummond III
[2018-03-31] MEDS: HUMULIN R (PARKWAY) SUBQ SCH ×4 (06:14→21:38)
[2018-03-31] MEDS: NS 1,000 ML IV SCH ×2 (06:14→09:05)
[2018-03-31] MEDS: ASPIRIN PO SCH (08:50)
[2018-03-31] MEDS: PRINIVIL PO SCH ×2 (08:50→21:38)
[2018-03-31] MEDS: HYDROCHLOROTHIAZIDE PO SCH (08:50)
[2018-03-31] MEDS: VIMPAT PO SCH ×2 (08:50→21:38)
[2018-03-31] MEDS: COLACE PO SCH (08:50)
[2018-03-31] MEDS: NORVASC PO SCH (08:50)
[2018-03-31] MEDS: TOPROL XL PO SCH (08:50)
[2018-03-31] MEDS: JANUVIA PO SCH (08:50)
[2018-03-31] MEDS: SEROQUEL PO SCH ×2 (08:51→21:38)
[2018-03-31] MEDS: VICTOZA SUBQ SCH (08:57)
--- NOTE | 2018-03-31 21:26 | PROGRESS NOTE ---
DATE: 03/31/2018 SUBJECTIVE: The patient currently is in no distress. She is lying in the bed. She is awake. She is alert. OBJECTIVE: Vital Signs: Temperature 98, pulse 79, respiratory rate 20, blood pressure 117/54. General: The patient is awake and alert. She is currently in no respiratory distress. Neck: Supple. CARDIOVASCULAR: Regular rate. Chest: Clear and nonlabored. Abdomen: Soft and nondistended. Extremities: Moves all extremities. ASSESSMENT: 1. Seizure. Currently, she is on Vimpat. This was recently increased to 200. Will continue this. 2. Vascular dementia. 3. Diabetes. 4. Adult failure to thrive. PLAN: Overall, the patient is currently stable. She does have seizures. She recently had one. I do agree with Dr. Bill that she certainly should be made a DNR. Her dementia will not improve. Overall, currently, she is clinically stable and we are awaiting discharge plans per the state. cc: Ricky Daley MD
[2018-03-31] MEDS: BASAGLAR SUBQ SCH (21:37)
[2018-03-31] MEDS: MIRALAX PO PRN (21:37)
[2018-03-31] MEDS: LIPITOR PO SCH (21:38)
[2018-03-31] MEDS: GEODON IM PRN (23:24)
[2018-03-31] MEDS: STERILE WATER INJ. INJ PRN (23:24)
[2018-04-01] MEDS: HUMULIN R (PARKWAY) SUBQ SCH ×4 (05:59→21:10)
[2018-04-01] MEDS: ASPIRIN PO SCH (08:11)
[2018-04-01] MEDS: SEROQUEL PO SCH ×2 (08:12→20:05)
[2018-04-01] MEDS: COREG PO SCH ×2 (08:12→20:05)
[2018-04-01] MEDS: VIMPAT PO SCH ×2 (08:12→20:05)
[2018-04-01] MEDS: COLACE PO SCH (08:13)
[2018-04-01] MEDS: HYDROCHLOROTHIAZIDE PO SCH (08:13)
[2018-04-01] MEDS: JANUVIA PO SCH (08:13)
[2018-04-01] MEDS: PRINIVIL PO SCH ×2 (08:14→20:05)
[2018-04-01] MEDS: NORVASC PO SCH (08:14)
[2018-04-01] MEDS: VICTOZA SUBQ SCH (08:19)
[2018-04-01] MEDS: LIPITOR PO SCH (20:05)
[2018-04-01] MEDS: BASAGLAR SUBQ SCH (21:10)
--- NOTE | 2018-04-02 01:18 | PROGRESS NOTE ---
DATE: 04/01/2018 SUBJECTIVE: Patient has no complaints. She is lying in bed. She is awake, alert today. PHYSICAL EXAMINATION: Vital Signs: Temperature 97.4 degrees, pulse 74, respiratory 22, BP 198/89. General: Patient is awake, alert. She is currently in no distress. HEENT: Normocephalic. Neck: Supple. CARDIOVASCULAR: Regular rate. Chest: Clear. Abdomen: Soft. Extremities: Moves all extremities. ASSESSMENT: 1. Hypertension. 2. Seizures. 3. Vascular dementia. 4. Diabetes. 5. Adult failure to thrive. PLAN: Overall, she is better. We will increase her Coreg to 12.5 twice a day for blood pressure control. Continue Vimpat. Check an EKG and continue to follow. cc: Ricky Daley MD
[2018-04-02 06:46] LABS: AGAP 10; ALBUMIN 3.6 g/dL (3.5-5.0); ALKALINE PHOSPHATASE 99 U/L (32-104); BUN 28 mg/dL (8-22); CALCIUM 9.1 mg/dL (8.8-10.2); CHLORIDE 108 mmol/L (98-107); COSMO 297; CREATININE 0.7 mg/dL (0.5-0.9); ESTIMATED GFR > 60; GLUCOSE 189 mg/dL (70-104); GOT 28 U/L (10-30); GPT 60 U/L (10-36); MAGNESIUM 2.2 mg/dL (1.5-2.7); POTASSIUM 3.4 mmol/L (3.5-5.1); SODIUM 144 mmol/L (136-145); TCO2 27 mmol/L (25-35)
[2018-04-02] MEDS: HUMULIN R (PARKWAY) SUBQ SCH ×4 (06:46→20:57)
[2018-04-02] MEDS: HYDROCHLOROTHIAZIDE PO SCH (10:12)
[2018-04-02] MEDS: COREG PO SCH ×2 (10:12→20:57)
[2018-04-02] MEDS: JANUVIA PO SCH (10:12)
[2018-04-02] MEDS: SEROQUEL PO SCH ×2 (10:12→20:56)
[2018-04-02] MEDS: PRINIVIL PO SCH ×2 (10:13→20:57)
[2018-04-02] MEDS: NORVASC PO SCH (10:13)
[2018-04-02] MEDS: ASPIRIN PO SCH (10:13)
[2018-04-02] MEDS: VIMPAT PO SCH ×2 (10:13→20:56)
[2018-04-02] MEDS: COLACE PO SCH (10:13)
[2018-04-02] MEDS: VICTOZA SUBQ SCH (10:23)
--- NOTE | 2018-04-02 13:21 | EKG Report ---
Test Performed on : 04/02/2018 11:33:13 AM Test Reason : INCREASED DOSE VIMPAT Blood Pressure : / mmHG Vent. Rate : 093 BPM Atrial Rate : 093 BPM P-R Int : 136 ms QRS Dur : 090 ms QT Int : 368 ms P-R-T Axes : 054 -11 066 degrees QTc Int : 457 ms Normal sinus rhythm. Normal ECG When compared with ECG of 24-FEB-2018 09:26, QRS axis shifted right Confirmed by Duong Kearney MD ([id number]) on 04/11/2018 11:01:43 AM
[2018-04-02] MEDS: BASAGLAR SUBQ SCH (20:57)
[2018-04-02] MEDS: LIPITOR PO SCH (20:57)
--- NOTE | 2018-04-02 23:33 | PROGRESS NOTE ---
DATE: 04/02/2018 SUBJECTIVE: The patient this morning is doing quite well. She is sitting up eating breakfast. She has no complaints. OBJECTIVE: Vital Signs: Temperature 97.7 degrees, pulse 62, respiratory 18, BP 135/64. General: Patient is awake, alert, currently is in no respiratory distress. She is sitting in a chair at the bedside eating breakfast. HEENT: Normocephalic. Neck: Supple. Cardiovascular: Regular rate. Chest: Clear. Abdomen: Soft. Extremities: Moves all extremities. ASSESSMENT: 1. Diabetes. 2. Hypertension. 3. Seizure disorder. 4. Adult failure to thrive. 5. Others. PLAN: We will continue patient in the hospital. We have increased her Coreg to 12.5 twice a day. This seems to have improved her blood pressure. It is currently 135/64. We will continue symptomatic control. Further orders as needed. cc: Ricky Daley MD
[2018-04-03] MEDS: HUMULIN R (PARKWAY) SUBQ SCH ×4 (06:45→22:40)
[2018-04-03] MEDS: VIMPAT PO SCH ×2 (08:49→20:37)
[2018-04-03] MEDS: COLACE PO SCH (08:49)
[2018-04-03] MEDS: COREG PO SCH ×2 (08:49→20:38)
[2018-04-03] MEDS: NORVASC PO SCH (08:49)
[2018-04-03] MEDS: PRINIVIL PO SCH ×2 (08:49→20:38)
[2018-04-03] MEDS: HYDROCHLOROTHIAZIDE PO SCH (08:49)
[2018-04-03] MEDS: SEROQUEL PO SCH ×2 (08:49→20:37)
[2018-04-03] MEDS: ASPIRIN PO SCH (08:49)
[2018-04-03] MEDS: JANUVIA PO SCH (08:49)
[2018-04-03] MEDS: VICTOZA SUBQ SCH (08:50)
[2018-04-03] MEDS: MIRALAX PO PRN (17:07)
[2018-04-03] MEDS: LIPITOR PO SCH (20:38)
[2018-04-03] MEDS: BASAGLAR SUBQ SCH (20:38)
--- NOTE | 2018-04-03 22:31 | PROGRESS NOTE ---
DATE: 04/03/2018 SUBJECTIVE: Patient seen. She is currently in no distress. Does not answer questions. PHYSICAL EXAMINATION: Vital Signs: Temperature 98, pulse 91, respiratory 22, BP 165/77. General: Patient is awake, alert. She is sitting in a chair at the bedside eating breakfast. HEENT: Normocephalic. Neck: Supple. CARDIOVASCULAR: Regular rate. Chest: Clear and nonlabored. Abdomen: Soft, nondistended. Extremities: Moves all extremities. ASSESSMENT: 1. Hypertension. We will continue to follow. Her blood pressure is somewhat difficult to manage as is her blood sugar. This is partially because sometimes she simply refuses to take her medications. 2. History of seizures, currently on Vimpat. 3. Vascular dementia. 4. Diabetes. 5. Adult failure to thrive. PLAN: We will continue to follow and treat symptomatically. Await further orders and ability to transfer her to shelter. cc: Ricky Daley MD
[2018-04-04] MEDS: HUMULIN R (PARKWAY) SUBQ SCH ×5 (05:59→20:17)
[2018-04-04] MEDS: VIMPAT PO SCH ×2 (08:41→20:05)
[2018-04-04] MEDS: ASPIRIN PO SCH (08:41)
[2018-04-04] MEDS: COREG PO SCH ×2 (08:41→20:07)
[2018-04-04] MEDS: JANUVIA PO SCH (08:41)
[2018-04-04] MEDS: COLACE PO SCH (08:41)
[2018-04-04] MEDS: NORVASC PO SCH (08:42)
[2018-04-04] MEDS: SEROQUEL PO SCH ×2 (08:42→20:06)
[2018-04-04] MEDS: HYDROCHLOROTHIAZIDE PO SCH (08:43)
[2018-04-04] MEDS: VICTOZA SUBQ SCH (08:43)
[2018-04-04] MEDS: PRINIVIL PO SCH ×2 (08:43→20:07)
[2018-04-04] MEDS: LIPITOR PO SCH (20:07)
[2018-04-04] MEDS: BASAGLAR SUBQ SCH ×2 (20:17→20:18)
--- NOTE | 2018-04-04 20:41 | PROGRESS NOTE ---
DATE: 04/04/2018 SUBJECTIVE: Patient has no complaints. PHYSICAL: Temperature 98, pulse 70s, respiratory 20s, blood pressure systolic between 130s and 180s. Patient is awake, alert. She is in no current respiratory distress, pleasant to talk with.HEENT: Normocephalic. Neck: Supple. CV: Regular rate. Chest: Clear. Abdomen: Soft. ASSESSMENT: 1. Hypertension, blood pressures still remain elevated. We will continue to adjust her medications. 2. Diabetes. Her blood sugars are very difficult to maintain good control as some days she totally decides not to eat which then causes hypoglycemia. Her blood sugars have ranged from the 30s to 300s. 3. Vascular dementia. 4. Adult failure to thrive. 5. Seizures. PLAN: We will consider increasing her Coreg to 25 twice daily, will continue to follow, further orders as needed. cc: Ricky Daley MD
[2018-04-05] MEDS: ASPIRIN PO SCH (09:28)
[2018-04-05] MEDS: PRINIVIL PO SCH ×2 (09:28→20:17)
[2018-04-05] MEDS: NORVASC PO SCH (09:28)
[2018-04-05] MEDS: COLACE PO SCH (09:28)
[2018-04-05] MEDS: COREG PO SCH ×2 (09:29→20:15)
[2018-04-05] MEDS: SEROQUEL PO SCH ×2 (09:29→20:15)
[2018-04-05] MEDS: HYDROCHLOROTHIAZIDE PO SCH (09:29)
[2018-04-05] MEDS: VIMPAT PO SCH ×2 (09:29→20:15)
[2018-04-05] MEDS: JANUVIA PO SCH (09:29)
[2018-04-05] MEDS: VICTOZA SUBQ SCH (09:30)
[2018-04-05] MEDS: HUMULIN R (PARKWAY) SUBQ SCH ×4 (11:39→23:27)
--- NOTE | 2018-04-05 18:14 | PROGRESS NOTE ---
DATE: 04/05/2018 SUBJECTIVE: Patient has no complaints, she is lying in the bed this morning, she is refusing to eat breakfast. PHYSICAL: Temperature 98, pulse 88, respiratory 18, BP 143/63.General: Patient is awake, alert, she is in no current respiratory distress lying in bed. HEENT: Normocephalic. Neck: Supple. CV: Regular rate. Chest: Clear nonlabored. Abdomen: Soft, nondistended, nontender. Extremities: Moves all extremities. Neuro: No changes. ASSESSMENT: 1. Hypertension. 2. Vascular dementia . 3. Seizures. 4. Diabetes. 5. Adult failure to thrive. PLAN: We will continue her in hospital, continue Coreg as well as Vimpat for seizures and will follow. Hopefully she can eventually transition to snf. cc: Ricky Daley MD
[2018-04-05] MEDS: LIPITOR PO SCH (20:15)
[2018-04-05] MEDS: BASAGLAR SUBQ SCH (20:16)
[2018-04-06] MEDS: HUMULIN R (PARKWAY) SUBQ SCH ×4 (06:05→21:08)
[2018-04-06] MEDS: HYDROCHLOROTHIAZIDE PO SCH (09:22)
[2018-04-06] MEDS: COLACE PO SCH (09:22)
[2018-04-06] MEDS: JANUVIA PO SCH (09:22)
[2018-04-06] MEDS: PRINIVIL PO SCH ×2 (09:22→20:59)
[2018-04-06] MEDS: SEROQUEL PO SCH ×2 (09:22→20:58)
[2018-04-06] MEDS: VIMPAT PO SCH ×2 (09:22→20:58)
[2018-04-06] MEDS: COREG PO SCH ×2 (09:23→20:59)
[2018-04-06] MEDS: ASPIRIN PO SCH (09:23)
[2018-04-06] MEDS: VICTOZA SUBQ SCH (09:23)
[2018-04-06] MEDS: NORVASC PO SCH (09:30)
--- NOTE | 2018-04-06 18:10 | PROGRESS NOTE ---
DATE: 04/06/2018 SUBJECTIVE: This morning Ms. Bajwa continues to be fairly stable. No new complaints. She was in bed. OBJECTIVE: Vital Signs: Blood pressure is 169/74, pulse 84, respirations 18, temperature 97.3. Patient is saturating 100% on room air. General: Ms. Bajwa is an 82-year-old female. She is in bed. Does not seem to be in any distress. HEENT: Mucosa is pink and moist. Anicteric. Acyanotic. Neck: Supple. Chest: Clear. No crepitations. No rhonchi. No accessory muscle use. Cardiovascular: Regular rate and rhythm. No murmurs. Abdomen: Soft, nontender. Bowel sounds present. Extremities: No pedal edema. Central Nervous System: Patient is awake, moves all extremities. LABORATORY DATA: Glucose is 279. CURRENT MEDICATIONS: Have been reviewed, includin. Amlodipine 10 mg daily. 2. Aspirin 325 daily. 3. Lipitor 40 mg daily. 4. Dulcolax. 5. Coreg 12.5 b.i.d. 6. Hydrochlorothiazide 12.5 daily. 7. Insulin 30 units of glargine, 30 units at bedtime. 8. Sliding scale insulin. 9. Vimpat 200 b.i.d. 10. Victoza 1.8 subcu daily. 11. Lisinopril 20 mg b.i.d. 12. Seroquel 200 b.i.d. 13. Januvia 100 mg daily. 14. Geodon 10 mg IM q.6h p.r.n. ASSESSMENT: 1. Hypertension, controlled. 2. Vascular dementia. 3. Seizures, controlled. 4. Diabetes mellitus, on insulin regimen. 5. Failure to thrive. 6. Still pending disposition. cc: Daniel Hahn MD
[2018-04-06] MEDS: BASAGLAR SUBQ SCH (20:56)
[2018-04-06] MEDS: LIPITOR PO SCH (20:59)
[2018-04-07] MEDS: HUMULIN R (PARKWAY) SUBQ SCH ×4 (06:24→20:51)
[2018-04-07] MEDS: COLACE PO SCH (08:24)
[2018-04-07] MEDS: PRINIVIL PO SCH ×2 (08:24→20:48)
[2018-04-07] MEDS: ASPIRIN PO SCH (08:24)
[2018-04-07] MEDS: NORVASC PO SCH (08:25)
[2018-04-07] MEDS: VIMPAT PO SCH ×2 (08:25→20:47)
[2018-04-07] MEDS: JANUVIA PO SCH (08:26)
[2018-04-07] MEDS: SEROQUEL PO SCH ×2 (08:26→20:47)
[2018-04-07] MEDS: HYDROCHLOROTHIAZIDE PO SCH (08:26)
[2018-04-07] MEDS: COREG PO SCH ×2 (08:26→20:47)
[2018-04-07] MEDS: VICTOZA SUBQ SCH (08:27)
--- NOTE | 2018-04-07 12:11 | PROGRESS NOTE ---
DATE: 04/07/2018 SUBJECTIVE: This morning Ms. Bajwa continued to be stable. She is more alert today, than she was yesterday, and she was more conversational. OBJECTIVE: Vital signs: Blood pressure is 142/74, pulse is 83, respirations 18 , temperature 97.9 degrees. General: Ms. Bajwa is an 82-year-old female. She is in bed. She is not in any cardiopulmonary distress. Mucosa: [place] and moist. Anicteric. Acyanotic. Neck: Supple. Chest: Good air entry bilateral. There was no crepitations, no rhonchi. Cardiovascular: Regular rate and rhythm. No murmurs, no rubs, no gallops. Abdomen: Soft, nontender. Bowel sounds are present. Extremities: No pedal edema. BARK PEELER: Patient is awake, alert, moves all extremities. LABORATORY DATA: None today. Her glucose is 196. ASSESSMENT: 1. Hypertension. 2. Vascular dementia. 3. Seizure disorder, controlled. 4. Diabetes mellitus on insulin regimen. 5. Failure to thrive. 6. Social neglect. The patient is pending disposition. cc: Daniel Hahn MD MTDD
[2018-04-07] MEDS: BASAGLAR SUBQ SCH (20:46)
[2018-04-07] MEDS: LIPITOR PO SCH (20:47)
[2018-04-08] MEDS: HUMULIN R (PARKWAY) SUBQ SCH ×4 (06:44→20:44)
[2018-04-08] MEDS: ASPIRIN PO SCH (08:19)
[2018-04-08] MEDS: JANUVIA PO SCH (08:19)
[2018-04-08] MEDS: COREG PO SCH ×2 (08:20→20:44)
[2018-04-08] MEDS: HYDROCHLOROTHIAZIDE PO SCH (08:20)
[2018-04-08] MEDS: COLACE PO SCH (08:20)
[2018-04-08] MEDS: PRINIVIL PO SCH ×2 (08:20→20:45)
[2018-04-08] MEDS: VIMPAT PO SCH ×2 (08:20→20:31)
[2018-04-08] MEDS: NORVASC PO SCH (08:20)
[2018-04-08] MEDS: SEROQUEL PO SCH ×2 (08:20→20:32)
[2018-04-08] MEDS: VICTOZA SUBQ SCH (08:29)
--- NOTE | 2018-04-08 11:08 | PROGRESS NOTE ---
DATE: 04/08/2018 SUBJECTIVE: This morning, Ms. Bajwa refers to be doing fairly okay. She was a little bit more delightful. OBJECTIVE: Vital signs: Blood pressure is 132/68, pulse 90, respirations 16, temperature 97.9 degrees. General: Ms. Bajwa is an 82-year-old female. She is in bed. She is not in any cardiopulmonary distress. Mucosa: [place] and moist. Anicteric. Acyanotic. Neck: Supple. Chest: Good air entry bilateral. There was no crepitations, no rhonchi. Cardiovascular: Regular rate and rhythm. Abdomen: Soft and nontender. Bowel sounds present. Extremities: 2+ pedal edema. QUALITY SYSTEMS MANAGER: Patient is more awake, alert, moves all extremities. More conversational today. LABORATORY DATA: Glucose of 255. MEDICATIONS: Have been reviewed. ASSESSMENT: 1. Hypertension, controlled. 2. Vascular dementia. 3. Seizure disorder, controlled. 4. Diabetes mellitus on insulin regimen. 5. Failure to thrive. 6. Social neglect. 7. Disposition. Still pending court proceedings to get a legal guardian for Ms. Bajwa and subsequently get her placed to be transferred to. cc: Daniel Hahn MD
[2018-04-08] MEDS: LIPITOR PO SCH (20:32)
[2018-04-08] MEDS: BASAGLAR SUBQ SCH (20:44)
[2018-04-09] MEDS: HUMULIN R (PARKWAY) SUBQ SCH ×4 (06:01→23:12)
--- NOTE | 2018-04-09 09:50 | PROGRESS NOTE ---
DATE: 04/09/2018 SUBJECTIVE: Patient resting quietly in bed. No complaints voiced. OBJECTIVE: Vital signs: Temp 97.5 degrees, pulse 90, respirations 16, blood pressure 171/69, saturating 100% on room air. HENT: Normocephalic, atraumatic. Normal ENT inspection. Eyes: Pupils are equal, round, reactive to light and accommodation. Extraocular movements are intact. Neck: Normal inspection, normal range of motion. Lungs: Are clear to auscultation bilaterally with equal lung expansion and chest wall movement. Heart: Regular rate and rhythm. No murmurs, rubs, or gallops. Abdomen: Soft, nontender, and nondistended. Bowel sounds x4 quadrants. Musculoskeletal: She has 5/5 strength x4 extremities. Neurological: The cranial nerves 2-12 appear grossly intact. LABORATORY DATA: No new labs today. ASSESSMENT: 1. Hypertension, controlled. 2. Vascular dementia. 3. Seizure disorder, controlled. 4. Diabetes on insulin regimen. 5. Failure to thrive. 6. Social neglect. DISPOSITION: We still are awaiting a court proceeding for legal guardianship for Ms. Bajwa to be placed in long-term care. Dictated by EDDIE Vicente for Ventura Pleitez MD cc: EDDIE Vicente MD
[2018-04-09] MEDS: VIMPAT PO SCH ×2 (10:00→22:56)
[2018-04-09] MEDS: COREG PO SCH ×2 (10:01→22:57)
[2018-04-09] MEDS: HYDROCHLOROTHIAZIDE PO SCH (10:02)
[2018-04-09] MEDS: COLACE PO SCH (10:02)
[2018-04-09] MEDS: ASPIRIN PO SCH ×2 (10:06→10:27)
[2018-04-09] MEDS: JANUVIA PO SCH (10:07)
[2018-04-09] MEDS: SEROQUEL PO SCH ×2 (10:07→22:57)
[2018-04-09] MEDS: NORVASC PO SCH (10:08)
[2018-04-09] MEDS: PRINIVIL PO SCH ×2 (10:08→22:57)
[2018-04-09] MEDS: VICTOZA SUBQ SCH (10:51)
[2018-04-09] MEDS: LIPITOR PO SCH (22:57)
[2018-04-09] MEDS: BASAGLAR SUBQ SCH (23:12)
[2018-04-10] MEDS: HUMULIN R (PARKWAY) SUBQ SCH ×4 (05:58→20:01)
[2018-04-10] MEDS: JANUVIA PO SCH (09:40)
[2018-04-10] MEDS: VIMPAT PO SCH ×2 (09:48→22:59)
[2018-04-10] MEDS: ASPIRIN PO SCH (09:48)
[2018-04-10] MEDS: SEROQUEL PO SCH ×2 (09:48→22:59)
[2018-04-10] MEDS: COLACE PO SCH (09:49)
[2018-04-10] MEDS: PRINIVIL PO SCH ×2 (09:49→22:58)
[2018-04-10] MEDS: HYDROCHLOROTHIAZIDE PO SCH (09:50)
[2018-04-10] MEDS: COREG PO SCH ×2 (09:50→22:58)
[2018-04-10] MEDS: VICTOZA SUBQ SCH (09:50)
[2018-04-10] MEDS: NORVASC PO SCH (09:50)
--- NOTE | 2018-04-10 09:54 | PROGRESS NOTE ---
DATE: 04/10/2018 SUBJECTIVE: The patient is lying in bed and does not have any acute issues. She has not been able to communicate properly because of senile vascular dementia. OBJECTIVE: Vital Signs: Temperature 97.6 degrees, pulse 73 per minute, respiratory rate 18 per minute, blood pressure 172/68. Earlier, her blood pressure was 128/99. Pulse oximetry is 100% on room air. Cardiovascular System: First and second heart sounds are audible without any murmurs or gallops. Respiratory System: No respiratory distress noted. Bilateral lung air entry is good without any rales or rhonchi. Gastrointestinal System: Abdomen is soft and nondistended. Normal bowel sounds are present. DIAGNOSTIC DATA: No new labs are done. IMPRESSION: 1. Hypertension. 2. Type 2 diabetes mellitus. 3. Vascular dementia. 4. Dyslipidemia. 5. Social neglect. PLAN: The patient has been here at the hospital for past 5 months and is still waiting to have court proceedings for legal guardianship. I believe a legal guardian has been appointed, but she has a house and, therefore, the legal guardian has to marlen her family to sell her house, and after that she will be placed in a long-term facility. We will continue with her current medications, including amlodipine 10 mg daily, carvedilol 12.5 mg twice daily, and hydrochlorothiazide 12.5 mg daily. She will also continue to have her atorvastatin 40 mg daily at bedtime for her dyslipidemia, and continue with Seroquel 200 mg twice daily along with Geodon on as-needed basis for senile dementia with behavioral symptoms. Her overall condition is stable and there are no new recommendations. cc: Hernan Morelos MD
[2018-04-10] MEDS: LIPITOR PO SCH (22:58)
[2018-04-10] MEDS: BASAGLAR SUBQ SCH (23:00)
[2018-04-11] MEDS: HUMULIN R (PARKWAY) SUBQ SCH ×4 (06:47→20:51)
[2018-04-11] MEDS: SEROQUEL PO SCH ×2 (10:33→20:51)
[2018-04-11] MEDS: VIMPAT PO SCH ×2 (10:33→20:50)
[2018-04-11] MEDS: JANUVIA PO SCH (10:33)
[2018-04-11] MEDS: HYDROCHLOROTHIAZIDE PO SCH (10:34)
[2018-04-11] MEDS: COLACE PO SCH (10:34)
[2018-04-11] MEDS: ASPIRIN PO SCH (10:34)
[2018-04-11] MEDS: VICTOZA SUBQ SCH (10:34)
[2018-04-11] MEDS: PRINIVIL PO SCH ×2 (10:34→20:51)
[2018-04-11] MEDS: NORVASC PO SCH (10:34)
[2018-04-11] MEDS: COREG PO SCH ×2 (10:34→20:51)
--- NOTE | 2018-04-11 13:30 | PROGRESS NOTE ---
DATE: 04/11/2018 SUBJECTIVE: The patient is lying in bed and appears to be slightly agitated. No other acute complaints have been reported. OBJECTIVE: Vital Signs: Temperature 97.3 degrees, pulse 79 per minute, respiratory rate 18 per minute, blood pressure 155/87, pulse oximetry 100% on room air. Cardiovascular System: First and second heart sounds are audible without any murmurs or gallops. Respiratory System: No respiratory distress noted. Bilateral lung air entry is good without any rales or rhonchi. Gastrointestinal System: The abdomen is soft and not distended. It is nontender on palpation. Normal bowel sounds are present. IMPRESSION: 1. Hypertension. 2. Type 2 diabetes mellitus. 3. Vascular dementia. 4. Dyslipidemia. 5. Social neglect. PLAN: The patient has been here at the hospital for the past 5 months and a legal guardian has been appointed, but she does have property that has to be sold before she can be placed in a long- term facility. We will continue with her current medications for hypertension along with dyslipidemia and dementia with behavioral symptoms. Her overall condition is stable and she will remain here until a court order has been received to transfer her to a long-term facility. cc: Hernan Morelos MD
[2018-04-11] MEDS: LIPITOR PO SCH (20:51)
[2018-04-11] MEDS: BASAGLAR SUBQ SCH (20:51)
[2018-04-12] MEDS: HUMULIN R (PARKWAY) SUBQ SCH ×4 (06:43→23:33)
--- NOTE | 2018-04-12 11:22 | PROGRESS NOTE ---
DATE: 04/12/2018 SUBJECTIVE: The patient is lying in bed comfortably without having any complaints reported. OBJECTIVE: Vital signs: Temperature 97.7 degrees, pulse 96 per minute, respiratory rate 20 per minute, blood pressure 100/74, pulse oximetry 100% on room air. General: The patient is comfortably lying in bed and has been restful. Cardiovascular System: First and second heart sounds are audible without any murmurs or gallops. Respiratory System: No respiratory distress noted. Bilateral lung air entry is good without any rales or rhonchi. Gastrointestinal System: Abdomen is soft and nondistended. It is soft and nontender on palpation. Normal bowel sounds are present. IMPRESSIONS: 1. Hypertension. 2. Type 2 diabetes mellitus. 3. Vascular dementia. 4. Dyslipidemia. 5. Social neglect. PLAN: Patient will be kept here on current medications and care until we hear from her legal guardian who has been appointed by the court. They are currently undergoing legal procedure to have her house sold and then subsequently transfer her to a long-term facility. cc: Hernan Morelos MD
[2018-04-12] MEDS: PRINIVIL PO SCH ×2 (12:06→23:34)
[2018-04-12] MEDS: JANUVIA PO SCH (12:06)
[2018-04-12] MEDS: ASPIRIN PO SCH (12:06)
[2018-04-12] MEDS: COREG PO SCH ×2 (12:06→23:35)
[2018-04-12] MEDS: VIMPAT PO SCH ×2 (12:06→23:35)
[2018-04-12] MEDS: HYDROCHLOROTHIAZIDE PO SCH (12:06)
[2018-04-12] MEDS: NORVASC PO SCH (12:06)
[2018-04-12] MEDS: VICTOZA SUBQ SCH (12:07)
[2018-04-12] MEDS: COLACE PO SCH (12:07)
[2018-04-12] MEDS: SEROQUEL PO SCH ×2 (12:07→23:35)
[2018-04-12] MEDS: BASAGLAR SUBQ SCH (23:33)
[2018-04-12] MEDS: LIPITOR PO SCH (23:35)
[2018-04-13] MEDS: HUMULIN R (PARKWAY) SUBQ SCH ×4 (06:34→21:31)
[2018-04-13] MEDS: JANUVIA PO SCH (09:28)
[2018-04-13] MEDS: ASPIRIN PO SCH (09:28)
[2018-04-13] MEDS: HYDROCHLOROTHIAZIDE PO SCH (09:28)
[2018-04-13] MEDS: NORVASC PO SCH (09:28)
[2018-04-13] MEDS: SEROQUEL PO SCH ×2 (09:28→22:56)
[2018-04-13] MEDS: PRINIVIL PO SCH ×2 (09:29→22:56)
[2018-04-13] MEDS: COLACE PO SCH (09:29)
[2018-04-13] MEDS: COREG PO SCH ×2 (09:29→22:55)
[2018-04-13] MEDS: VICTOZA SUBQ SCH (09:29)
[2018-04-13] MEDS: VIMPAT PO SCH ×2 (09:37→22:56)
--- NOTE | 2018-04-13 21:57 | PROGRESS NOTE ---
DATE: 04/13/2018 SUBJECTIVE: Patient has no new complaints, she is eating breakfast this morning. PHYSICAL: Temperature 97.7, pulse 84, respiratory 20, BP 155/74.General: Patient is in no current respiratory distress. HEENT: Normocephalic, atraumatic. JEN. Neck: Supple. No JVD. CV: Regular rate. Chest: Clear. Abdomen: Soft. Extremities: Moves all extremities. Neuro: No changes. ASSESSMENT: 1. Hypertension . 2. Type 2 diabetes. 3. Vascular dementia . 4. Dyslipidemia. PLAN: Will continue patient in the hospital, continue fluids as needed, continue to follow her blood sugars, further orders as needed. cc: Ricky Daley MD
[2018-04-13] MEDS: BASAGLAR SUBQ SCH (22:57)
[2018-04-13] MEDS: LIPITOR PO SCH (22:57)
[2018-04-14] MEDS: HUMULIN R (PARKWAY) SUBQ SCH ×4 (06:56→22:50)
[2018-04-14] MEDS: NORVASC PO SCH (10:03)
[2018-04-14] MEDS: JANUVIA PO SCH (10:03)
[2018-04-14] MEDS: COREG PO SCH ×2 (10:03→22:50)
[2018-04-14] MEDS: VIMPAT PO SCH ×2 (10:03→22:49)
[2018-04-14] MEDS: ASPIRIN PO SCH (10:03)
[2018-04-14] MEDS: PRINIVIL PO SCH ×2 (10:03→22:49)
[2018-04-14] MEDS: SEROQUEL PO SCH ×2 (10:03→22:49)
[2018-04-14] MEDS: VICTOZA SUBQ SCH (10:04)
[2018-04-14] MEDS: HYDROCHLOROTHIAZIDE PO SCH (10:04)
[2018-04-14] MEDS: COLACE PO SCH (10:04)
--- NOTE | 2018-04-14 20:33 | PROGRESS NOTE ---
DATE: 04/14/2018 SUBJECTIVE: Patient has no current complaints. She is lying in bed. She is alert and awake. PHYSICAL EXAMINATION: Vital Signs: Temperature 97.7, pulse 86, respiratory 18 , BP 158/77. General: Patient is in no current respiratory distress. She is awake, alert. HEENT: Normocephalic. Neck: Supple. Cardiovascular: Regular rate. Chest: Clear. Abdomen: Soft. Extremities: Moves all extremities. ASSESSMENT: 1. Hypertension. 2. Diabetes. 3. Vascular dementia. 4. Dyslipidemia. PLAN: Will continue patient in the hospital. We will continue to await [facility] Snapper and [facility] to find proper discharge planning. Unfortunately, Ms. Bajwa has been in the hospital since November awaiting the courts to finalize her discharge. cc: Ricky Daley MD MTDD
[2018-04-14] MEDS: BASAGLAR SUBQ SCH (22:49)
[2018-04-14] MEDS: LIPITOR PO SCH (22:50)
[2018-04-15] MEDS: HUMULIN R (PARKWAY) SUBQ SCH ×4 (06:35→20:11)
[2018-04-15] MEDS: HYDROCHLOROTHIAZIDE PO SCH (09:23)
[2018-04-15] MEDS: COREG PO SCH ×2 (09:24→20:10)
[2018-04-15] MEDS: SEROQUEL PO SCH ×2 (09:24→20:10)
[2018-04-15] MEDS: ASPIRIN PO SCH (09:24)
[2018-04-15] MEDS: COLACE PO SCH (09:24)
[2018-04-15] MEDS: NORVASC PO SCH (09:24)
[2018-04-15] MEDS: PRINIVIL PO SCH ×2 (09:26→20:10)
[2018-04-15] MEDS: JANUVIA PO SCH (09:27)
[2018-04-15] MEDS: VIMPAT PO SCH ×2 (09:27→20:10)
[2018-04-15] MEDS: VICTOZA SUBQ SCH (09:27)
--- NOTE | 2018-04-15 18:16 | PROGRESS NOTE ---
DATE: 04/15/2018 SUBJECTIVE: Patient seen. She has no complaints. She is lying in bed. OBJECTIVE: Vital Signs: Temperature 97.5, pulse 74, respiratory rate 18, blood pressure 155/78. General: Patient is awake, alert. She is currently in no respiratory distress. HEENT: Normocephalic. Neck: Supple. CARDIOVASCULAR: Regular rate. Chest: Clear, nonlabored. Abdomen: Soft, nondistended, nontender. Extremities: Moves all extremities. ASSESSMENT: 1. Hypertension. 2. Type 2 diabetes. 3. Recent seizure activity. 4. Vascular dementia. 5. Dyslipidemia. PLAN: Will continue patient in the hospital until at which time Saxophone Player and [facility] can arrange her discharge planning. cc: Ricky Daley MD
[2018-04-15] MEDS: GEODON IM PRN (19:20)
[2018-04-15] MEDS: LIPITOR PO SCH (20:10)
[2018-04-15] MEDS: BASAGLAR SUBQ SCH (20:11)
[2018-04-16] MEDS: HUMULIN R (PARKWAY) SUBQ SCH ×4 (06:33→20:36)
[2018-04-16] MEDS: ASPIRIN PO SCH (09:03)
[2018-04-16] MEDS: COLACE PO SCH (09:03)
[2018-04-16] MEDS: NORVASC PO SCH (09:03)
[2018-04-16] MEDS: VIMPAT PO SCH ×2 (09:03→20:23)
[2018-04-16] MEDS: COREG PO SCH ×2 (09:03→20:23)
[2018-04-16] MEDS: HYDROCHLOROTHIAZIDE PO SCH (09:04)
[2018-04-16] MEDS: PRINIVIL PO SCH ×2 (09:04→20:23)
[2018-04-16] MEDS: JANUVIA PO SCH (09:04)
[2018-04-16] MEDS: SEROQUEL PO SCH ×2 (09:04→20:23)
--- NOTE | 2018-04-16 09:04 | PROGRESS NOTE ---
DATE: 04/16/2018 SUBJECTIVE: Patient has no complaints. OBJECTIVE: Vital Signs: On physical examination, temperature 98.3, pulse 76, respiratory 14, BP 108/51, blood sugar 56 this morning. General: Patient is awake. She is in no distress, lying flatly in the bed. HEENT: Normocephalic, atraumatic. JEN. Neck: Supple. CV: Regular rate. Chest: Clear. Abdomen: Soft. ASSESSMENT: 1. Diabetes with hypoglycemia. 2. Hypertension. Blood pressures are better this morning. 3. Vascular dementia. 4. Dyslipidemia. PLAN: We will continue current medications. The patient's blood sugar is somewhat difficult to control as some days she simply refuses to eat and others she eats more. We will continue to follow. Continue to await Basket Weaver discharge plans. cc: Ricky Daley MD
[2018-04-16] MEDS: VICTOZA SUBQ SCH (09:05)
[2018-04-16] MEDS: BASAGLAR SUBQ SCH (20:24)
[2018-04-16] MEDS: LIPITOR PO SCH (20:24)
[2018-04-16] MEDS: STERILE WATER INJ. INJ PRN (21:27)
[2018-04-16] MEDS: GEODON IM PRN (21:27)
[2018-04-17] MEDS: HUMULIN R (PARKWAY) SUBQ SCH ×4 (06:01→20:12)
[2018-04-17] MEDS: VIMPAT PO SCH ×3 (09:24→20:28)
[2018-04-17] MEDS: ASPIRIN PO SCH ×2 (09:24→10:14)
[2018-04-17] MEDS: SEROQUEL PO SCH ×3 (09:25→19:58)
[2018-04-17] MEDS: PRINIVIL PO SCH ×3 (09:25→19:58)
[2018-04-17] MEDS: HYDROCHLOROTHIAZIDE PO SCH ×2 (09:25→10:15)
[2018-04-17] MEDS: COLACE PO SCH ×2 (09:25→10:14)
[2018-04-17] MEDS: JANUVIA PO SCH ×2 (09:25→10:15)
[2018-04-17] MEDS: COREG PO SCH ×3 (09:25→19:58)
[2018-04-17] MEDS: NORVASC PO SCH ×2 (09:25→10:12)
[2018-04-17] MEDS: VICTOZA SUBQ SCH (09:26)
--- NOTE | 2018-04-17 10:20 | PROGRESS NOTE ---
DATE: 04/17/2018 SUBJECTIVE: Patient with no new complaints. PHYSICAL EXAMINATION: Vital Signs: Temp 98.3, pulse 76, respiratory 14, BP 108/51 to 180/82. Blood sugars 60 to 436. General: Patient is in no current distress, lying in the bed. Physical exam unchanged. ASSESSMENT: 1. Hypertension. 2. Diabetes. 3. Vascular dementia. 4. Dyslipidemia. 5. Seizure disorder. PLAN: Continue current medications. Continue current plan. We will follow. We will continue to await placement. cc: Ricky Daley MD
[2018-04-17] MEDS: BASAGLAR SUBQ SCH (19:57)
[2018-04-17] MEDS: LIPITOR PO SCH (19:58)
[2018-04-17 22:46] LABS: BILIRUBIN URINE NEGATIVE (NEGATIVE); BLOOD URINE 1+ (NEGATIVE); CLARITY VERY CLOUDY (CLEAR); COLOR YELLOW; KETONE URINE NEGATIVE (NEGATIVE); LEUKOCYTES URINE 2+ (NEGATIVE); NITRITE URINE NEGATIVE (NEGATIVE); PH URINE 6.5; PROTEIN URINE 1+(30 mg/dL) mg/dL (NEGATIVE); UROBILINOGEN URINE NORMAL
[2018-04-17 22:47] LABS: URINE BACTERIA 4+ /HFP; URINE EPITHELIAL CELLS <10 /HPF (<10); URINE SOURCE CLEAN CATCH; URINE WBC TNTC /HPF (<10)
[2018-04-18] MEDS: BASAGLAR SUBQ SCH ×2 (03:21→21:59)
[2018-04-18] MEDS: SEROQUEL PO SCH ×3 (03:21→21:59)
[2018-04-18] MEDS: SEPTRA DS PO SCH ×3 (03:23→22:00)
[2018-04-18] MEDS: LIPITOR PO SCH ×2 (03:24→22:00)
[2018-04-18] MEDS: PRINIVIL PO SCH ×3 (03:24→22:00)
[2018-04-18] MEDS: COREG PO SCH ×3 (03:24→22:06)
[2018-04-18] MEDS: HUMULIN R (PARKWAY) SUBQ SCH ×4 (06:21→22:04)
[2018-04-18] MEDS: VIMPAT PO SCH ×2 (09:20→21:59)
[2018-04-18] MEDS: VICTOZA SUBQ SCH (09:20)
[2018-04-18] MEDS: COLACE PO SCH (09:20)
[2018-04-18] MEDS: NORVASC PO SCH (09:20)
[2018-04-18] MEDS: JANUVIA PO SCH (09:20)
[2018-04-18] MEDS: HYDROCHLOROTHIAZIDE PO SCH (09:20)
[2018-04-18] MEDS: ASPIRIN PO SCH (09:20)
--- NOTE | 2018-04-19 01:54 | PROGRESS NOTE ---
DATE: 04/18/2018 SUBJECTIVE: The patient has no complaints. She is lying in the bed. PHYSICAL EXAMINATION: Vital Signs: Temperature 98.3 degrees, pulse 74, respiratory 14, BP 108/51 to 180/82. General: Patient is awake, alert. She is in no distress. HEENT: Normocephalic. Neck: Supple. CARDIOVASCULAR: Regular rate. Chest: Clear. Abdomen: Soft. Extremities: Moves all extremities. ASSESSMENT: 1. Urinary tract infection. Was started on Bactrim. Await culture. 2. Diabetes with hypoglycemia. 3. Vascular dementia. 4. Dyslipidemia. 5. Hypertension. PLAN: We will continue patient in the hospital. We will await the ability to transfer her per long term care social worker. cc: Ricky Daley MD
[2018-04-19] MEDS: HUMULIN R (PARKWAY) SUBQ SCH ×4 (06:28→20:15)
[2018-04-19] MEDS: VIMPAT PO SCH ×2 (09:33→20:14)
[2018-04-19] MEDS: SEROQUEL PO SCH ×2 (09:33→20:14)
[2018-04-19] MEDS: HYDROCHLOROTHIAZIDE PO SCH (09:34)
[2018-04-19] MEDS: SEPTRA DS PO SCH ×2 (09:34→20:14)
[2018-04-19] MEDS: PRINIVIL PO SCH ×2 (09:34→20:14)
[2018-04-19] MEDS: VICTOZA SUBQ SCH (09:34)
[2018-04-19] MEDS: COLACE PO SCH (09:34)
[2018-04-19] MEDS: JANUVIA PO SCH (09:34)
[2018-04-19] MEDS: NORVASC PO SCH (09:34)
[2018-04-19] MEDS: COREG PO SCH ×2 (09:34→20:14)
[2018-04-19] MEDS: ASPIRIN PO SCH (09:34)
[2018-04-19] MEDS: BASAGLAR SUBQ SCH (20:13)
[2018-04-19] MEDS: LIPITOR PO SCH (20:14)
[2018-04-19] MEDS: GEODON IM PRN (20:14)
--- NOTE | 2018-04-20 00:02 | PROGRESS NOTE ---
DATE: 04/19/2018 CHIEF COMPLAINT: No new complaints. PHYSICAL EXAMINATION: Vital Signs: Temperature 97 degrees, pulse 90, respiratory 20, BP 175/82. General: Patient is awake, alert, currently in no distress. She is lying in bed HEENT: Normocephalic. Neck: Supple. CARDIOVASCULAR: Regular rate. Chest: Clear and nonlabored. Abdomen: Soft. ASSESSMENT: 1. Hypertension. 2. Seizure disorder. 3. Diabetes. 4. Vascular dementia. 5. Urinary tract infection. We will continue antibiotics until the culture is negative. PLAN: We will continue patient in the hospital, antibiotics, oxygen and we will continue to follow. cc: Ricky Daley MD MTDD
[2018-04-20] MEDS: HUMULIN R (PARKWAY) SUBQ SCH ×4 (06:01→21:35)
[2018-04-20] MEDS: SEPTRA DS PO SCH (08:14)
[2018-04-20] MEDS: JANUVIA PO SCH (08:14)
[2018-04-20] MEDS: ASPIRIN PO SCH (08:14)
[2018-04-20] MEDS: COLACE PO SCH (08:14)
[2018-04-20] MEDS: VIMPAT PO SCH ×2 (08:14→20:07)
[2018-04-20] MEDS: PRINIVIL PO SCH ×2 (08:14→20:07)
[2018-04-20] MEDS: NORVASC PO SCH (08:14)
[2018-04-20] MEDS: SEROQUEL PO SCH ×2 (08:14→20:07)
[2018-04-20] MEDS: HYDROCHLOROTHIAZIDE PO SCH (08:14)
[2018-04-20] MEDS: COREG PO SCH ×2 (08:15→20:07)
[2018-04-20] MEDS: VICTOZA SUBQ SCH (08:15)
--- NOTE | 2018-04-20 10:54 | PROGRESS NOTE ---
DATE: 04/20/2018 SUBJECTIVE: Patient has no focal complaints. OBJECTIVE: Vital signs: Blood pressure is 153/64, heart rate of 91, respiratory rate 19, temperature 98.6 degrees, 97% on room air. Cardiovascular: Regular rate and rhythm. Pulmonary: Bilateral breath sounds. Clear to auscultation. GI: Soft, nontender, nondistended. Bowel sounds are positive. LABORATORY DATA: Her urine culture is growing out Enterococcus faecalis for which she has been placed on Bactrim, but I think we will have to switch her to amoxicillin based on sensitivities. ASSESSMENT AND PLAN: 1. Hypertension. She is controlled on her current medications. 2. Seizure disorder. Overall stable on current medications. 3. Diabetes. Also stable on current medications. 4. Enterococcus urinary tract infection. We will initiate amoxicillin and follow. 5. Disposition. Pending resolution of her social situation. She has essentially been abandoned by her family and cannot take care of herself. She has no direct family that is willing to participate in her care. We are following closely. cc: Zachery Bill MD
[2018-04-20] MEDS: AMOXIL PO SCH ×2 (12:41→20:07)
[2018-04-20] MEDS: LIPITOR PO SCH (20:07)
[2018-04-20] MEDS: BASAGLAR SUBQ SCH (21:35)
[2018-04-21] MEDS: AMOXIL PO SCH ×3 (04:07→20:11)
[2018-04-21] MEDS: HUMULIN R (PARKWAY) SUBQ SCH ×4 (06:09→20:41)
[2018-04-21] MEDS: SEROQUEL PO SCH ×2 (10:43→20:11)
[2018-04-21] MEDS: JANUVIA PO SCH (10:43)
[2018-04-21] MEDS: VIMPAT PO SCH ×2 (10:43→20:11)
[2018-04-21] MEDS: ASPIRIN PO SCH (10:43)
[2018-04-21] MEDS: COREG PO SCH ×2 (10:43→20:11)
[2018-04-21] MEDS: NORVASC PO SCH (10:44)
[2018-04-21] MEDS: HYDROCHLOROTHIAZIDE PO SCH (10:44)
[2018-04-21] MEDS: COLACE PO SCH (10:44)
[2018-04-21] MEDS: VICTOZA SUBQ SCH (10:45)
[2018-04-21] MEDS: PRINIVIL PO SCH ×2 (10:45→20:11)
--- NOTE | 2018-04-21 15:32 | PROGRESS NOTE ---
DATE: 04/21/2018 SUBJECTIVE: The patient has no focal complaints. OBJECTIVE: Vital Signs: Blood pressure is 158/68, heart rate 92, respiratory rate 20, temperature 97.8 degrees, satting 99% on room air. Cardiovascular: Regular rate and rhythm. Pulmonary: Bilateral breath sounds. Clear to auscultation. GI: Soft, nontender, nondistended. Sugars are stable. PROBLEM LIST: 1. Hypertension is stable currently. 2. Seizure disorder, also stable on current medications. 3. Enterococcus urinary tract urinary tract infection. She is on amoxicillin. We started that yesterday. We will treat for probably 7 days. DISPOSITION: Pending. We will see how she is doing otherwise. cc: Zachery Bill MD
[2018-04-21] MEDS: GEODON IM PRN (20:11)
[2018-04-21] MEDS: LIPITOR PO SCH (20:11)
[2018-04-21] MEDS: BASAGLAR SUBQ SCH (20:41)
[2018-04-21 22:48] LABS: BE 3.4 mmoll (-3.0-3.0); BLOOD TYPE ARTERIAL; HCO3-(ACT) 27.6 mmoll (20.0-26.0); METHB 0.9 % (0.0-1.5); O2(CT) 16.1 mL/dL (15.0-23.0); O2HB 95.8 % (95.0-99.0); PCO2(98.6) 35 mmHg (35-45); PO2(98.6) 84 mmHg (60-100); SAMPLE BLOOD; SAO2 97.8 % (95.0-100.0); THB 11.9 g/dL (11.5-17.4); pH(98.6) 7.49 (7.35-7.45)
[2018-04-21 22:51] LABS: ALLEN TEST YES; MODALITY ROOM AIR
[2018-04-21 22:59] LABS: BASO# 0.02 X1000 (0.0-0.2); BASO% 0.2 % (0.0-0.8); EOS# 0.14 X1000 (0.0-0.7); EOS% 1.7 % (0.0-10.0); HEMATOCRIT 34.2 % (37.0-47.0); HEMOGLOBIN 11.1 g/dL (12.0-16.0); IMM GRAN# 0.04 X1000 (0.0-0.04); IMM GRAN% 0.5 % (0.0-0.5); LYMPH# 1.61 X1000 (1.2-3.4); LYMPH% 19.8 % (20.5-51.1); MCH 27.5 PG (27-31); MCHC 32.5 g/dL (33-37); MCV 84.9 FL (81-99); MONO# 0.88 X1000 (0.11-0.59); MONO% 10.8 % (1.7-9.3); MPV 11.6 FL (7.4-10.4); NEUT# 5.44 X1000 (1.4-6.5); PLT 258 X1000 (130-400); RBC 4.03 XMIL (4.2-5.4); RDW 14.8 % (11.5-14.5); WBC 8.13 X1000 (4.8-10.8)
[2018-04-21 23:16] LABS: AGAP 10; ALBUMIN 3.5 g/dL (3.5-5.0); ALKALINE PHOSPHATASE 90 U/L (32-104); BUN 21 mg/dL (8-22); CHLORIDE 109 mmol/L (98-107); COSMO 289; CREATININE 0.7 mg/dL (0.5-0.9); ESTIMATED GFR > 60; GLUCOSE 109 mg/dL (70-104); GOT 31 U/L (10-30); GPT 57 U/L (10-36); SODIUM 143 mmol/L (136-145); TCO2 24 mmol/L (25-35); TOTAL PROTEIN 5.9 g/dL (6.3-8.3)
--- NOTE | 2018-04-22 01:13 | EKG Report ---
Test Performed on : 04/21/2018 10:37:19 PM Test Reason : unresponsive Blood Pressure : / mmHG Vent. Rate : 065 BPM Atrial Rate : 065 BPM P-R Int : 164 ms QRS Dur : 094 ms QT Int : 442 ms P-R-T Axes : 026 -51 084 degrees QTc Int : 459 ms Sinus rhythm. with premature atrial complexes. Left axis deviation Abnormal ECG When compared with ECG of 02-APR-2018 11:33, premature atrial complexes. are now present QRS axis shifted left Confirmed by Duong Kearney MD ([id number]) on 05/07/2018 11:30:04 AM
[2018-04-22] MEDS: AMPICILLIN 1 GM/NS 1 GM/50 ML IVPB IV SCH ×4 (01:48→18:43)
[2018-04-22] MEDS: D5 NS 1,000 ML IV SCH (05:32)
[2018-04-22] MEDS: HUMULIN R (PARKWAY) SUBQ SCH ×3 (07:31→23:12)
--- NOTE | 2018-04-22 08:41 | Diag Imaging Result Doc PS360 ---
EXAM: CT HEAD W/O CONTRAST - 04/22/2018 HISTORY: Unresponsive TECHNIQUE: CT head without contrast COMPARISON: 03/29/2018 FINDINGS: There are postsurgical changes of craniotomy on the left, with encephalomalacia at the temporal and occipital region, similar to the prior exam. There are calcifications along the left tentorium similar to the prior exam. There is a shunt catheter with its tip at the extra-axial superior left frontal region similar to the prior exam. There are chronic microvascular ischemic changes, with chronic lacunar infarcts, similar to the prior exam. There is no new infarct identified, although acute infarcts may not be immediately visible. There is no intracranial hemorrhage or mass effect identified. IMPRESSION: Postsurgical changes of the left similar to prior. Chronic ischemic changes similar to prior. No visible acute intracranial abnormality. This exam was performed using automated exposure control, adjustment of mA or kV according to patient size, and/or use of iterative reconstruction technique. Electronically signed by Rogelio Baker 04/22/2018 8:38 AM
--- NOTE | 2018-04-22 08:43 | Diag Imaging Result Doc PS360 ---
EXAM: CHEST-1 VIEW - 04/22/2018 HISTORY: pulmonary edema TECHNIQUE: One view chest COMPARISON: 12/06/2017 FINDINGS: There is mild cardiomegaly. Inspiration appears shallow, although this may be exaggerated by somewhat lordotic projection. The lungs appear essentially clear. There is no substantial vascular congestion, pleural effusion, or pneumothorax identified. IMPRESSION: Mild cardiomegaly. Shallow inspiration. No other evidence of acute disease. Electronically signed by Rogelio Baker 04/22/2018 8:41 AM
[2018-04-22] MEDS: VIMPAT PO SCH ×2 (09:31→23:11)
[2018-04-22] MEDS: PRINIVIL PO SCH ×2 (09:31→23:11)
[2018-04-22] MEDS: HYDROCHLOROTHIAZIDE PO SCH (09:31)
[2018-04-22] MEDS: JANUVIA PO SCH (09:31)
[2018-04-22] MEDS: NORVASC PO SCH (09:31)
[2018-04-22] MEDS: SEROQUEL PO SCH ×2 (09:31→23:11)
[2018-04-22] MEDS: COREG PO SCH ×2 (09:31→23:11)
[2018-04-22] MEDS: ASPIRIN PO SCH (09:31)
[2018-04-22] MEDS: COLACE PO SCH (09:31)
[2018-04-22] MEDS: VICTOZA SUBQ SCH (09:32)
--- NOTE | 2018-04-22 13:05 | PROGRESS NOTE ---
DATE: 04/22/2018 SUBJECTIVE: Patient has no major complaints. Last night she had another episode of diminished responsiveness. She became hypotensive. Reportedly, blood pressure down into the 50s. A CAT call was called and they think she had a seizure. She had also an episode of hypoglycemia sort of with a blood sugar that dropped into the 40s, but despite correcting her hypoglycemia, she was still unresponsive. She received a fluid bolus overnight. There was concern with starting vasopressors, but her blood pressure came up and then her mental status went back to baseline, and is currently at baseline. OBJECTIVE: Vital Signs: Blood pressure is 143/95, heart rate of 88, respiratory rate 25, temperature 98.6. Cardiovascular: Regular rate and rhythm. Pulmonary: Bilateral breath sounds. Clear to auscultation. GI: Soft, nontender, nondistended. Bowel sounds are positive. Head CT was negative. Chest x-ray really was unremarkable. LABS: All her labs looked okay. No white count. Hemoglobin and hematocrit of 11 and 34. ABG looked okay. Basic looked okay. AST and ALT are mildly elevated. PROBLEM LIST: 1. Transient hypotension. May be related to some of her medications. She has previously been hypertensive. We will continue to monitor them. 2. Seizure disorder has been controlled. I do not think this episode was a seizure because she previously has had generalized tonic-clonic seizures, but again, she is back to baseline and is currently on Vimpat. 3. Enterococcus urinary tract infection. She is on amoxicillin. We started that yesterday. I put her back on ampicillin because she had been n.p.o., but now seems to be better. We will switch her to amoxicillin here shortly. 4. Disposition: We are still waiting on long-term placement. cc: Zachery Bill MD
[2018-04-22] MEDS: LIPITOR PO SCH (23:11)
[2018-04-22] MEDS: BASAGLAR SUBQ SCH (23:12)
[2018-04-23] MEDS: HUMULIN R (PARKWAY) SUBQ SCH ×4 (06:12→22:16)
[2018-04-23] MEDS: JANUVIA PO SCH (09:54)
[2018-04-23] MEDS: NORVASC PO SCH (09:54)
[2018-04-23] MEDS: AMOXIL PO SCH ×2 (09:54→22:18)
[2018-04-23] MEDS: VIMPAT PO SCH ×2 (09:54→22:18)
[2018-04-23] MEDS: SEROQUEL PO SCH ×2 (09:55→22:18)
[2018-04-23] MEDS: PRINIVIL PO SCH ×2 (09:55→22:19)
[2018-04-23] MEDS: VICTOZA SUBQ SCH (09:55)
[2018-04-23] MEDS: HYDROCHLOROTHIAZIDE PO SCH (09:55)
[2018-04-23] MEDS: COLACE PO SCH (09:55)
[2018-04-23] MEDS: ASPIRIN PO SCH (09:55)
[2018-04-23] MEDS: COREG PO SCH ×2 (10:07→22:18)
--- NOTE | 2018-04-23 16:03 | PROGRESS NOTE ---
DATE: 04/23/2018 SUBJECTIVE: The patient has no complaints. She is sitting up in bed pleasantly confused. OBJECTIVE: Vital Signs: Blood pressure is 157/103, heart rate of 100, respiratory rate of 18, temperature of 97.8, satting 100% on room air. Cardiovascular: Regular rate and rhythm. Pulmonary: Bilateral breath sounds. Clear to auscultation. GI: Soft, nontender, nondistended. Bowel sounds were positive. LABORATORY DATA: White count was 8, hemoglobin and hematocrit 11 and 34, platelets 258. Basic was normal. PROBLEM LIST: 1. Transient hypotension. We will continue her medications. 2. Seizure disorder, stable. 3. Enterococcus urinary tract infection. She is on amoxicillin. We will continue for 7 days. DISPOSITION: Pending placement. cc: Zachery Bill MD
[2018-04-23] MEDS: BASAGLAR SUBQ SCH (22:10)
[2018-04-23] MEDS: LIPITOR PO SCH (22:18)
[2018-04-24] MEDS: HUMULIN R (PARKWAY) SUBQ SCH ×4 (07:07→22:31)
[2018-04-24] MEDS: SEROQUEL PO SCH ×2 (10:20→22:30)
[2018-04-24] MEDS: PRINIVIL PO SCH ×2 (10:21→22:31)
[2018-04-24] MEDS: ASPIRIN PO SCH (10:21)
[2018-04-24] MEDS: NORVASC PO SCH (10:21)
[2018-04-24] MEDS: COLACE PO SCH (10:21)
[2018-04-24] MEDS: JANUVIA PO SCH (10:21)
[2018-04-24] MEDS: HYDROCHLOROTHIAZIDE PO SCH (10:21)
[2018-04-24] MEDS: AMOXIL PO SCH ×2 (10:22→22:27)
[2018-04-24] MEDS: VICTOZA SUBQ SCH (10:22)
[2018-04-24] MEDS: COREG PO SCH ×2 (10:22→22:31)
--- NOTE | 2018-04-24 11:23 | PROGRESS NOTE ---
DATE: 11/14/2017 SUBJECTIVE: The patient has no compliant. She is sitting up in a chair beside the bed, pleasantly confused. OBJECTIVE: Vital signs: Blood pressure is 164/74, heart rate 76, respirations 18, temperature is 97.8 with room air saturation 100%. Cardiovascular: Regular rate and rhythm. S1 and S2 appreciated. She has no lower extremity edema. Pulmonary: Breath sounds are clear with no increased work of breathing noted. Chest rises and falls symmetrically with respiration. Gastrointestinal: Abdomen is soft, nontender and nondistended with bowel sounds in all 4 quadrants. ASSESSMENT AND PLAN: 1. Transient hypertension. Will continue her medications and monitoring her vital signs. 2. Seizure disorder. We are going to order seizure precautions. This is stable. 3. Enterococcus urinary tract infection. She is on amoxicillin. Will continue for 6 more days. 4. Diabetes Mellitus with hypoglycemia 5. Vascular dementia Continue current treatment. Dictated by EDDIE Hardy for Hernan Morelos MD This chart was documented by, EDDIE Hardy and accurately reflects the services performed, treatment plan and medical decisions as attested by the providers signature Hernan Morelos MD. cc: EDDIE Hardy MD MTDD
[2018-04-24] MEDS: VIMPAT PO SCH ×2 (12:06→22:31)
[2018-04-24] MEDS: LIPITOR PO SCH (22:30)
[2018-04-24] MEDS: BASAGLAR SUBQ SCH (22:31)
[2018-04-25] MEDS: HUMULIN R (PARKWAY) SUBQ SCH ×4 (06:43→23:09)
--- NOTE | 2018-04-25 09:14 | PROGRESS NOTE ---
DATE: 04/25/2018 SUBJECTIVE: Patient has no complaints today. She is lying in bed and sleepy. OBJECTIVE: Vital Signs: Temperature 98 degrees, pulse 81 per minute, respiratory rate 18 per minute, blood pressure 194/84, pulse oximetry 100% on room air. Cardiovascular system: First and second heart sounds are audible without any murmurs or gallops. Respiratory system: No respiratory distress noted. Bilateral lung air entry is moderately decreased, but there are no rales or rhonchi. Gastrointestinal system: Abdomen is soft and nondistended. It is nontender on palpation and normal bowel sounds are present. DIAGNOSTIC DATA: None. IMPRESSION: 1. Urinary tract infection. 2. Hypertension. 3. Type 2 diabetes mellitus. 4. Senile dementia. 5. Seizure disorder. PLAN: The patient has been diagnosed recently with urinary tract infection for which we will continue with amoxicillin for a total of 1 week. Her hypertension has been fluctuating, and we are currently going to continue with carvedilol, hydrochlorothiazide and lisinopril. We are also going to continue with the rest of her medications, including Seroquel and Vimpat. Further recommendations will be given and disposition will be arranged once we see report order. cc: Hernan Morelos MD
[2018-04-25] MEDS: VICTOZA SUBQ SCH (09:19)
[2018-04-25] MEDS: COLACE PO SCH (09:19)
[2018-04-25] MEDS: JANUVIA PO SCH (09:19)
[2018-04-25] MEDS: ASPIRIN PO SCH (09:19)
[2018-04-25] MEDS: HYDROCHLOROTHIAZIDE PO SCH (09:19)
[2018-04-25] MEDS: NORVASC PO SCH (09:20)
[2018-04-25] MEDS: SEROQUEL PO SCH ×2 (09:20→23:08)
[2018-04-25] MEDS: COREG PO SCH ×2 (09:20→23:08)
[2018-04-25] MEDS: AMOXIL PO SCH ×2 (09:20→23:06)
[2018-04-25] MEDS: PRINIVIL PO SCH ×2 (09:20→23:08)
[2018-04-25] MEDS: VIMPAT PO SCH ×2 (09:50→23:07)
[2018-04-25] MEDS: BASAGLAR SUBQ SCH (23:08)
[2018-04-25] MEDS: LIPITOR PO SCH (23:08)
[2018-04-26] MEDS: HUMULIN R (PARKWAY) SUBQ SCH ×4 (06:35→22:00)
--- NOTE | 2018-04-26 08:42 | PROGRESS NOTE ---
DATE: 04/26/2018 SUBJECTIVE: The patient has no complaints today. She is comfortably lying in her bed. OBJECTIVE: Vital Signs: Temperature 97.4 degrees, pulse 76 per minute, respiratory rate 18 per minute, blood pressure 167/73, pulse oximetry 100% on room air. Cardiovascular System: First and second heart sounds are audible without any murmurs or gallops. Respiratory System: Bilateral lung air entry is good without any rales or rhonchi. Gastrointestinal System: Abdomen is soft and nontender on palpation. Normal bowel sounds are present. IMPRESSION: 1. Urinary tract infection. 2. Hypertension. 3. Type 2 diabetes mellitus. 4. Seizure disorder. PLAN: The patient has been diagnosed with a urinary tract infection recently for which we will continue with amoxicillin to complete a 1 week therapy. Her hypertension has been fluctuating but it gets up whenever she gets a little bit agitated but otherwise, it has been within desired range. Her diabetes and seizure disorder have also been stable. We are going to continue with amlodipine 10 mg daily along with carvedilol 12.5 daily and lisinopril 20 mg twice daily. Furthermore, she will continue with Januvia 100 mg daily and we will continue with regular insulin as per sliding scale. She will also continue getting Victoza 1.8 mg subcutaneously every day. Her seizure disorder has been stable, as mentioned above, for which she will continue with Vimpat 200 mg twice daily. She will be transferred to another facility for long-term placement once we receive a court order. cc: Hernan Morelos MD
[2018-04-26] MEDS: COLACE PO SCH (10:10)
[2018-04-26] MEDS: SEROQUEL PO SCH ×2 (10:10→21:59)
[2018-04-26] MEDS: NORVASC PO SCH (10:11)
[2018-04-26] MEDS: ASPIRIN PO SCH (10:11)
[2018-04-26] MEDS: HYDROCHLOROTHIAZIDE PO SCH (10:11)
[2018-04-26] MEDS: JANUVIA PO SCH (10:11)
[2018-04-26] MEDS: COREG PO SCH ×2 (10:11→21:59)
[2018-04-26] MEDS: AMOXIL PO SCH ×2 (10:13→21:58)
[2018-04-26] MEDS: VIMPAT PO SCH ×2 (10:13→21:59)
[2018-04-26] MEDS: PRINIVIL PO SCH ×2 (10:13→21:59)
[2018-04-26] MEDS: VICTOZA SUBQ SCH (10:14)
[2018-04-26 12:01] LABS: URINE SOURCE CLEAN CATCH
[2018-04-26 12:05] LABS: BILIRUBIN URINE NEGATIVE (NEGATIVE); BLOOD URINE NEGATIVE (NEGATIVE); CLARITY CLEAR (CLEAR); COLOR YELLOW; KETONE URINE NEGATIVE (NEGATIVE); LEUKOCYTES URINE 1+ (NEGATIVE); NITRITE URINE NEGATIVE (NEGATIVE); PH URINE 6.5; PROTEIN URINE 1+(30 mg/dL) mg/dL (NEGATIVE); SP GRAVITY URINE 1.015; UROBILINOGEN URINE NORMAL
[2018-04-26 12:16] LABS: URINE BACTERIA 1+ /HFP; URINE EPITHELIAL CELLS >10 /HPF (<10)
[2018-04-26] MEDS: BASAGLAR SUBQ SCH (21:58)
[2018-04-26] MEDS: LIPITOR PO SCH (21:59)
[2018-04-27] MEDS: HUMULIN R (PARKWAY) SUBQ SCH ×4 (06:15→21:24)
[2018-04-27 07:54] LABS: BASO# 0.02 X1000 (0.0-0.2); BASO% 0.2 % (0.0-0.8); EOS# 0.17 X1000 (0.0-0.7); EOS% 1.9 % (0.0-10.0); HEMOGLOBIN 11.4 g/dL (12.0-16.0); IMM GRAN# 0.05 X1000 (0.0-0.04); IMM GRAN% 0.6 % (0.0-0.5); LYMPH# 1.75 X1000 (1.2-3.4); LYMPH% 19.5 % (20.5-51.1); MCH 27.7 PG (27-31); MCHC 32.6 g/dL (33-37); MCV 85.2 FL (81-99); MONO# 0.76 X1000 (0.11-0.59); MONO% 8.5 % (1.7-9.3); MPV 11.3 FL (7.4-10.4); NEUT# 6.22 X1000 (1.4-6.5); NEUT% 69.3 % (42.2-75.2); PLT 266 X1000 (130-400); RBC 4.11 XMIL (4.2-5.4); RDW 14.9 % (11.5-14.5); WBC 8.97 X1000 (4.8-10.8)
[2018-04-27 09:25] LABS: AGAP 11; ALBUMIN 3.8 g/dL (3.5-5.0); ALKALINE PHOSPHATASE 93 U/L (32-104); BUN 24 mg/dL (8-22); CALCIUM 9.6 mg/dL (8.8-10.2); CHLORIDE 109 mmol/L (98-107); COSMO 296; CREATININE 0.6 mg/dL (0.5-0.9); ESTIMATED GFR > 60; GLUCOSE 89 mg/dL (70-104); GOT 20 U/L (10-30); GPT 36 U/L (10-36); POTASSIUM 3.5 mmol/L (3.5-5.1); SODIUM 147 mmol/L (136-145); TCO2 27 mmol/L (25-35); TOTAL BILIRUBIN < 0.15 mg/dL (0.20-1.00); TOTAL PROTEIN 6.3 g/dL (6.3-8.3)
[2018-04-27] MEDS: JANUVIA PO SCH (09:37)
[2018-04-27] MEDS: PRINIVIL PO SCH ×2 (09:38→21:22)
[2018-04-27] MEDS: NORVASC PO SCH (09:38)
[2018-04-27] MEDS: COLACE PO SCH (09:38)
[2018-04-27] MEDS: ASPIRIN PO SCH (09:38)
[2018-04-27] MEDS: VIMPAT PO SCH ×2 (09:38→21:22)
[2018-04-27] MEDS: HYDROCHLOROTHIAZIDE PO SCH (09:38)
[2018-04-27] MEDS: COREG PO SCH ×2 (09:38→21:21)
[2018-04-27] MEDS: SEROQUEL PO SCH ×2 (09:38→21:21)
[2018-04-27] MEDS: VICTOZA SUBQ SCH (09:39)
[2018-04-27] MEDS: LIPITOR PO SCH (21:21)
[2018-04-27] MEDS: BASAGLAR SUBQ SCH (21:24)
--- NOTE | 2018-04-27 22:46 | PROGRESS NOTE ---
DATE: 04/27/2018 SUBJECTIVE: Patient has no new complaints. PHYSICAL: She is awake, alert, she is in no distress.Vital Signs: Reviewed. Blood pressure 145/83. ASSESSMENT: 1. Urinary tract infection. She has been on antibiotics for 7 days, will stop. 2. Hypertension. 3. Diabetes. 4. Seizure disorder. PLAN: We will continue her current medications as listed without any changes with the exception of stopping her antibiotic and will follow. cc: Ricky Daley MD
[2018-04-28] MEDS: HUMULIN R (PARKWAY) SUBQ SCH ×4 (06:47→22:11)
[2018-04-28] MEDS: VICTOZA SUBQ SCH (09:33)
[2018-04-28] MEDS: SEROQUEL PO SCH ×2 (09:36→22:09)
[2018-04-28] MEDS: COREG PO SCH ×2 (09:36→22:10)
[2018-04-28] MEDS: JANUVIA PO SCH (09:36)
[2018-04-28] MEDS: ASPIRIN PO SCH (09:36)
[2018-04-28] MEDS: NORVASC PO SCH (09:36)
[2018-04-28] MEDS: VIMPAT PO SCH ×2 (09:36→22:10)
[2018-04-28] MEDS: HYDROCHLOROTHIAZIDE PO SCH (09:36)
[2018-04-28] MEDS: PRINIVIL PO SCH ×2 (09:36→22:10)
[2018-04-28] MEDS: COLACE PO SCH (09:37)
--- NOTE | 2018-04-28 21:52 | PROGRESS NOTE ---
DATE: 04/28/2018 SUBJECTIVE: Patient has no new complaints. PHYSICAL: Vital Signs: Reviewed stable, temperature 98.1 degrees, pulse 86, respiratory 19, BP 153/71. General: Patient is awake, alert, she is in no distress. Physical exam otherwise unchanged. PLAN: Will continue patient in hospital, continue medications without any change and await ability to transfer her to rehab. cc: Ricky Daley MD
[2018-04-28] MEDS: LIPITOR PO SCH (22:10)
[2018-04-28] MEDS: BASAGLAR SUBQ SCH (22:10)
[2018-04-29] MEDS: HUMULIN R (PARKWAY) SUBQ SCH ×4 (06:02→20:47)
[2018-04-29] MEDS: COLACE PO SCH (09:57)
[2018-04-29] MEDS: NORVASC PO SCH (09:57)
[2018-04-29] MEDS: COREG PO SCH ×2 (09:57→20:37)
[2018-04-29] MEDS: PRINIVIL PO SCH ×2 (09:57→20:38)
[2018-04-29] MEDS: SEROQUEL PO SCH ×2 (09:57→20:37)
[2018-04-29] MEDS: HYDROCHLOROTHIAZIDE PO SCH (09:58)
[2018-04-29] MEDS: ASPIRIN PO SCH (09:58)
[2018-04-29] MEDS: VIMPAT PO SCH ×2 (09:58→20:20)
[2018-04-29] MEDS: JANUVIA PO SCH (09:58)
[2018-04-29] MEDS: VICTOZA SUBQ SCH (09:58)
[2018-04-29] MEDS: BASAGLAR SUBQ SCH (20:36)
[2018-04-29] MEDS: LIPITOR PO SCH (20:38)
--- NOTE | 2018-04-29 23:10 | PROGRESS NOTE ---
DATE: 04/29/2018 SUBJECTIVE: Patient has no new complaints. PHYSICAL EXAMINATION: Vital Signs: Reviewed. No new changes. ASSESSMENT: 1. Urinary tract infection, resolved. Recent cultures negative. 2. Hypertension. 3. Type 2 diabetes. 4. Adult failure to thrive. PLAN: We will continue patient in the hospital. Continue to follow and treat as needed. cc: Ricky Daley MD
[2018-04-30] MEDS: HUMULIN R (PARKWAY) SUBQ SCH ×4 (06:30→21:05)
[2018-04-30] MEDS: VICTOZA SUBQ SCH (09:09)
[2018-04-30] MEDS: VIMPAT PO SCH ×2 (09:11→21:04)
[2018-04-30] MEDS: COREG PO SCH ×2 (09:11→21:04)
[2018-04-30] MEDS: SEROQUEL PO SCH ×2 (09:11→21:04)
[2018-04-30] MEDS: HYDROCHLOROTHIAZIDE PO SCH (09:12)
[2018-04-30] MEDS: COLACE PO SCH (09:12)
[2018-04-30] MEDS: PRINIVIL PO SCH ×2 (09:12→21:04)
[2018-04-30] MEDS: JANUVIA PO SCH (09:12)
[2018-04-30] MEDS: ASPIRIN PO SCH (09:12)
[2018-04-30] MEDS: NORVASC PO SCH (09:12)
[2018-04-30] MEDS: LIPITOR PO SCH (21:04)
[2018-04-30] MEDS: BASAGLAR SUBQ SCH (21:05)
--- NOTE | 2018-04-30 23:59 | PROGRESS NOTE ---
DATE: 04/30/2018 SUBJECTIVE: Patient has no new complaints. She is lying in bed. PHYSICAL EXAMINATION: Vital Signs: Temperature 97.4 degrees, pulse 82, respiratory 16, BP 162/70. General: Patient is awake, alert. She is in no respiratory distress. HEENT: Normocephalic. Neck: Supple. CARDIOVASCULAR: Regular rate. Chest: Clear. Abdomen: Soft. ASSESSMENT: 1. Urinary tract infection, resolved. 2. Hypertension. 3. Diabetes. 4. Adult failure to thrive. PLAN: Patient will continue in the hospital. We will continue to follow and further orders as needed. cc: Ricky Daley MD
[2018-05-01] MEDS: HUMULIN R (PARKWAY) SUBQ SCH ×4 (06:06→23:20)
[2018-05-01] MEDS: PRINIVIL PO SCH ×2 (08:07→21:00)
[2018-05-01] MEDS: JANUVIA PO SCH (08:07)
[2018-05-01] MEDS: NORVASC PO SCH (08:07)
[2018-05-01] MEDS: COLACE PO SCH (08:07)
[2018-05-01] MEDS: HYDROCHLOROTHIAZIDE PO SCH (08:07)
[2018-05-01] MEDS: ASPIRIN PO SCH (08:07)
[2018-05-01] MEDS: SEROQUEL PO SCH ×2 (08:07→20:59)
[2018-05-01] MEDS: COREG PO SCH ×2 (08:07→21:00)
[2018-05-01] MEDS: VICTOZA SUBQ SCH (08:20)
[2018-05-01] MEDS: MIRALAX PO PRN (08:20)
[2018-05-01] MEDS: VIMPAT PO SCH ×2 (08:20→20:59)
[2018-05-01] MEDS: BASAGLAR SUBQ SCH (20:58)
[2018-05-01] MEDS: LIPITOR PO SCH (21:00)
[2018-05-02] MEDS: HUMULIN R (PARKWAY) SUBQ SCH ×3 (06:43→17:22)
--- NOTE | 2018-05-02 09:38 | PROGRESS NOTE ---
DATE: 05/01/2018 SUBJECTIVE: The patient is seen and examined by myself on the . She has no current complaints. She is lying flat in the bed. OBJECTIVE: Vital Signs: Reviewed. She is afebrile. Blood pressures are stable, currently 140s to 160 systolic. Blood sugars actually are improved today between 90s and 118; however, last night was 51. CV: Regular rate. Chest: Clear. Abdomen: Soft. ASSESSMENT: 1. Urinary tract infection. 2. Hypertension. 3. Type 2 diabetes. 4. Adult failure to thrive. PLAN: We will continue to await the opportunity to transfer her to care home. cc: Ricky Daley MD
[2018-05-02] MEDS: VICTOZA SUBQ SCH (10:52)
[2018-05-02] MEDS: NORVASC PO SCH (10:53)
[2018-05-02] MEDS: SEROQUEL PO SCH ×2 (10:53→23:13)
[2018-05-02] MEDS: VIMPAT PO SCH ×2 (10:53→23:12)
[2018-05-02] MEDS: JANUVIA PO SCH (10:53)
[2018-05-02] MEDS: COLACE PO SCH (10:53)
[2018-05-02] MEDS: PRINIVIL PO SCH ×2 (10:53→23:13)
[2018-05-02] MEDS: COREG PO SCH ×2 (10:53→23:13)
[2018-05-02] MEDS: HYDROCHLOROTHIAZIDE PO SCH (10:53)
[2018-05-02] MEDS: ASPIRIN PO SCH (10:53)
--- NOTE | 2018-05-02 16:48 | PROGRESS NOTE ---
DATE: 05/02/2018 SUBJECTIVE: Patient has no major complaints. She is resting quietly in bed. OBJECTIVE: Blood pressure 111/61, heart rate 79, respiratory 18, temperature was 97.3 degrees.Cardiovascular: Regular rate and rhythm. Pulmonary: Bilateral breath sounds, clear to auscultation. GI: Soft, nontender, nondistended. Bowel sounds are positive. LABORATORY DATA: Sugar today 152. PROBLEM LIST: 1. Urinary tract infection. I think she has completed antibiotics. She had a Enterococcus faecalis urinary tract infection which completed ampicillin. 2. Seizure disorder. She is currently on antiseizure medication Vimpat. 3. Hypertension is still fairly labile but is overall controlled. 4. Diabetes also labile but is overall well controlled. We will continue to follow closely. cc: Zachery Bill MD
[2018-05-02] MEDS: LIPITOR PO SCH (23:13)
[2018-05-03] MEDS: BASAGLAR SUBQ SCH ×2 (02:03→20:36)
[2018-05-03] MEDS: HUMULIN R (PARKWAY) SUBQ SCH ×5 (02:04→23:06)
[2018-05-03] MEDS: VICTOZA SUBQ SCH (08:17)
[2018-05-03] MEDS: HYDROCHLOROTHIAZIDE PO SCH (08:18)
[2018-05-03] MEDS: NORVASC PO SCH (08:18)
[2018-05-03] MEDS: VIMPAT PO SCH ×2 (08:19→20:35)
[2018-05-03] MEDS: PRINIVIL PO SCH ×2 (08:19→20:35)
[2018-05-03] MEDS: SEROQUEL PO SCH ×2 (08:19→20:35)
[2018-05-03] MEDS: ASPIRIN PO SCH (08:19)
[2018-05-03] MEDS: JANUVIA PO SCH (08:19)
[2018-05-03] MEDS: COLACE PO SCH (08:19)
[2018-05-03] MEDS: COREG PO SCH ×2 (08:19→20:35)
--- NOTE | 2018-05-03 18:02 | PROGRESS NOTE ---
DATE: 12/01/2017 SUBJECTIVE: She is doing well. She is resting quietly. No issues. OBJECTIVE: Vital Signs: Blood pressure 139/67, heart rate 83, respiratory rate 18, temperature 96.9. Cardiovascular: Regular rate and rhythm. Pulmonary: Bilateral breath sounds. Clear to auscultation. Gastrointestinal: Soft, nontender, nondistended. Bowel sounds are positive. LABORATORY DATA: We do not have any data. Sugar is 200s. PROBLEM LIST: 1. Diabetes, stable on current medications. She is fairly susceptible to even minor changes. 2. Enterococcus urinary tract infection. She seems to be overall improved. 3. Seizure disorder. Appears to be controlled on Vimpat. 4. Hypertension, is relatively stable. DISPOSITION: We are still waiting on placement. cc: aZchery Bill MD
[2018-05-03] MEDS: LIPITOR PO SCH (20:35)
[2018-05-04] MEDS: HUMULIN R (PARKWAY) SUBQ SCH ×3 (07:28→17:03)
[2018-05-04] MEDS: PRINIVIL PO SCH ×2 (08:40→21:09)
[2018-05-04] MEDS: SEROQUEL PO SCH ×2 (08:40→21:09)
[2018-05-04] MEDS: ASPIRIN PO SCH (08:40)
[2018-05-04] MEDS: NORVASC PO SCH (08:41)
[2018-05-04] MEDS: JANUVIA PO SCH (08:41)
[2018-05-04] MEDS: COLACE PO SCH (08:41)
[2018-05-04] MEDS: VIMPAT PO SCH ×2 (08:41→21:09)
[2018-05-04] MEDS: HYDROCHLOROTHIAZIDE PO SCH (08:41)
[2018-05-04] MEDS: VICTOZA SUBQ SCH (08:41)
[2018-05-04] MEDS: COREG PO SCH ×2 (08:41→21:09)
--- NOTE | 2018-05-04 16:59 | PROGRESS NOTE ---
DATE: 05/04/2018 SUBJECTIVE: Patient has no focal complaints. OBJECTIVE: Blood pressure 148/81, heart rate of 81, respiratory 18, temperature 98.5 degrees 100% on room air.Cardiovascular: Regular rate and rhythm. Pulmonary: Bilateral breath sounds clear to auscultation. GI: Soft, nontender, nondistended. Bowel sounds are positive. LABORATORY DATA: Sugar this morning 75, otherwise unremarkable. PROBLEM LIST: 1. Diabetes. She is still fairly labile. I did bump up her Lantus a little bit yesterday and then she had a low sugar today but really only bumped it up about 2 points so will see how her levels look. 2. Enterococcus urinary tract infection. She has completed her course of antibiotics. 3. Seizure disorder stable on current dose of Vimpat. 4. Hypertension is also stable. DISPOSITION: Pending her clinical status. We will continue to follow closely. cc: Zachery Bill MD
[2018-05-04] MEDS: LIPITOR PO SCH (21:09)
[2018-05-04] MEDS: BASAGLAR SUBQ SCH (21:09)
[2018-05-05] MEDS: HUMULIN R (PARKWAY) SUBQ SCH ×5 (00:05→20:36)
[2018-05-05] MEDS: COREG PO SCH ×2 (09:34→20:35)
[2018-05-05] MEDS: VICTOZA SUBQ SCH (09:34)
[2018-05-05] MEDS: SEROQUEL PO SCH ×2 (09:34→20:35)
[2018-05-05] MEDS: PRINIVIL PO SCH ×2 (09:34→20:35)
[2018-05-05] MEDS: VIMPAT PO SCH ×2 (09:34→20:34)
[2018-05-05] MEDS: COLACE PO SCH (09:34)
[2018-05-05] MEDS: NORVASC PO SCH (09:34)
[2018-05-05] MEDS: HYDROCHLOROTHIAZIDE PO SCH (09:34)
[2018-05-05] MEDS: ASPIRIN PO SCH (09:34)
[2018-05-05] MEDS: JANUVIA PO SCH (09:35)
--- NOTE | 2018-05-05 12:53 | PROGRESS NOTE ---
DATE: 05/05/2018 SUBJECTIVE: Patient has no focal complaints. OBJECTIVE: Vital signs: Blood pressure 151/84, heart rate of 85, respiratory rate 20, temperature 97.9 degrees, 100% on room air. Cardiovascular: Regular rate and rhythm. Pulmonary: Bilateral breath sounds clear to auscultation. GI: Soft, nontender, nondistended. Bowel sounds are positive. Her sugar this morning was 421, so not well controlled. PROBLEM LIST: 1. Diabetes. I have increased her Lantus further up to 35. She is on Victoza. Blood sugars are still very labile. 2. Seizure disorder. She is currently on Vimpat. 3. Hypertension is also stable. DISPOSITION: Waiting on guardianship and plan for long-term care. cc: Zachery Bill MD
[2018-05-05] MEDS: BASAGLAR SUBQ SCH (20:35)
[2018-05-05] MEDS: LIPITOR PO SCH (20:35)
[2018-05-06] MEDS: HUMULIN R (PARKWAY) SUBQ SCH ×3 (06:22→16:43)
[2018-05-06] MEDS: PRINIVIL PO SCH ×2 (09:47→21:11)
[2018-05-06] MEDS: SEROQUEL PO SCH ×2 (09:47→21:10)
[2018-05-06] MEDS: JANUVIA PO SCH (09:47)
[2018-05-06] MEDS: VIMPAT PO SCH ×2 (09:47→21:11)
[2018-05-06] MEDS: COLACE PO SCH (09:47)
[2018-05-06] MEDS: NORVASC PO SCH (09:47)
[2018-05-06] MEDS: HYDROCHLOROTHIAZIDE PO SCH (09:47)
[2018-05-06] MEDS: COREG PO SCH (10:07)
[2018-05-06] MEDS: ASPIRIN PO SCH (10:07)
[2018-05-06] MEDS: VICTOZA SUBQ SCH (10:18)
[2018-05-06 12:30] LABS: HEMOGLOBIN 10.9 g/dL (12.0-16.0); LYMPH% 13.7 % (20.5-51.1); MCH 27.7 PG (27-31); MCHC 32.1 g/dL (33-37); MCV 86.5 FL (81-99); MPV 11.8 FL (7.4-10.4); NEUT% 74.9 % (42.2-75.2); PLT 236 X1000 (130-400); RBC 3.93 XMIL (4.2-5.4); RDW 14.9 % (11.5-14.5); WBC 8.44 X1000 (4.8-10.8)
[2018-05-06 12:31] LABS: BASO# 0.02 X1000 (0.0-0.2); BASO% 0.2 % (0.0-0.8); EOS# 0.06 X1000 (0.0-0.7); EOS% 0.7 % (0.0-10.0); IMM GRAN# 0.04 X1000 (0.0-0.04); IMM GRAN% 0.5 % (0.0-0.5); LYMPH# 1.16 X1000 (1.2-3.4); MONO# 0.84 X1000 (0.11-0.59); NEUT# 6.32 X1000 (1.4-6.5)
[2018-05-06 12:56] LABS: AGAP 13; ALBUMIN 3.5 g/dL (3.5-5.0); ALKALINE PHOSPHATASE 93 U/L (32-104); BUN 28 mg/dL (8-22); CALCIUM 9.3 mg/dL (8.8-10.2); CHLORIDE 107 mmol/L (98-107); COSMO 297; CREATININE 0.8 mg/dL (0.5-0.9); ESTIMATED GFR > 60; GLUCOSE 221 mg/dL (70-104); GOT 44 U/L (10-30); GPT 67 U/L (10-36); POTASSIUM 3.8 mmol/L (3.5-5.1); SODIUM 143 mmol/L (136-145); TCO2 24 mmol/L (25-35)
[2018-05-06] MEDS: MIRALAX PO PRN (13:47)
--- NOTE | 2018-05-06 14:01 | PROGRESS NOTE ---
DATE: 05/06/2018 SUBJECTIVE: This morning she had another unresponsive event. It sounds like this time though it involved that she got up to the bathroom and then became unresponsive in the bathroom. So, it sounds like she probably had a syncopal event. There was some tremulousness and they felt that she possibly had a seizure, but we examined her. I examined her pretty quickly after the event, and she was responsive; a little slow to respond, but she was verbalizing. So, I did not feel she had a true postictal event and, therefore, I do not think she had a full-blown seizure. I did not witness any seizure activity. OBJECTIVE: Vital Signs: Blood pressure 151/91, heart rate 81, respiratory rate 20, temperature 98.1 degrees. Blood pressure obtained right after the event was 90s/60s. Cardiovascular: Regular rate and rhythm. Pulmonary: Bilateral breath sounds. Clear to auscultation. GI: Soft, nontender, nondistended. Bowel sounds were positive. Neurological exam: Nonfocal. LABORATORY DATA: Her white count was 8, hemoglobin and hematocrit 10 and 34, platelets of 236. Basic was normal, except for BUN of 28 and creatinine of 0.8, and her sugar was 198. AST and ALT were up a little bit, 44 and 67, which they have been up previously. PROBLEM LIST: 1. Acute I would say syncopal episode. We will give her some fluids and follow her clinically. 2. Diabetes. Continue her Lantus, Victoza. Blood sugars are stable. 3. Seizure disorder. We will continue to monitor, but again I do not feel like she has had a significant seizure per se. She is currently on Vimpat. 4. Hypertension. We will adjust her medication. She has been on numerous medications because she has been for the most part hypotensive, but currently she is not as such, but I will adjust her medicines accordingly and we will follow. DISPOSITION: Still waiting on legal disposition as far as deciding about going to long-term care facility. We will continue to monitor. cc: Zachery Bill MD
[2018-05-06 16:46] LABS: BILIRUBIN URINE NEGATIVE (NEGATIVE); BLOOD URINE 2+ (NEGATIVE); CLARITY CLEAR (CLEAR); COLOR YELLOW; KETONE URINE TRACE mg/dL (NEGATIVE); LEUKOCYTES URINE 2+ (NEGATIVE); NITRITE URINE NEGATIVE (NEGATIVE); PROTEIN URINE 1+(30 mg/dL) mg/dL (NEGATIVE); SP GRAVITY URINE 1.015; URINE EPITHELIAL CELLS <10 /HPF (<10); URINE RBC <10 /HPF (<10); URINE SOURCE CATH; URINE WBC TNTC /HPF (<10); UROBILINOGEN URINE NORMAL
[2018-05-06 16:47] LABS: URINE BACTERIA 3+ /HFP; URINE CAST NONE SEEN /LPF; URINE CRYSTAL NONE SEEN /HPF; URINE YEAST NONE SEEN /HPF
[2018-05-06] MEDS: BASAGLAR SUBQ SCH (21:10)
[2018-05-06] MEDS: LIPITOR PO SCH (21:10)
[2018-05-07] MEDS: HUMULIN R (PARKWAY) SUBQ SCH ×5 (00:12→23:05)
[2018-05-07] MEDS: D50W SYRINGE IV PRN (02:49)
[2018-05-07] MEDS: COLACE PO SCH (09:02)
[2018-05-07] MEDS: SEROQUEL PO SCH ×2 (09:03→23:05)
[2018-05-07] MEDS: VICTOZA SUBQ SCH (09:03)
[2018-05-07] MEDS: JANUVIA PO SCH (09:03)
[2018-05-07] MEDS: PRINIVIL PO SCH ×2 (09:03→23:05)
[2018-05-07] MEDS: VIMPAT PO SCH ×2 (09:03→23:05)
[2018-05-07] MEDS: NORVASC PO SCH (09:03)
[2018-05-07] MEDS: ASPIRIN PO SCH (09:04)
[2018-05-07] MEDS: LIPITOR PO SCH (23:04)
[2018-05-07] MEDS: BASAGLAR SUBQ SCH (23:04)
[2018-05-08] MEDS: HUMULIN R (PARKWAY) SUBQ SCH ×4 (06:11→22:57)
[2018-05-08] MEDS: SEROQUEL PO SCH ×3 (09:45→23:19)
[2018-05-08] MEDS: COLACE PO SCH (09:45)
[2018-05-08] MEDS: NORVASC PO SCH (09:45)
[2018-05-08] MEDS: VICTOZA SUBQ SCH (09:45)
[2018-05-08] MEDS: ASPIRIN PO SCH (09:45)
[2018-05-08] MEDS: JANUVIA PO SCH (09:45)
[2018-05-08] MEDS: VIMPAT PO SCH ×3 (09:45→23:19)
[2018-05-08] MEDS: PRINIVIL PO SCH ×3 (09:45→23:19)
--- NOTE | 2018-05-08 15:52 | PROGRESS NOTE ---
DATE: 05/08/2018 SUBJECTIVE: She is awake and alert today, at least at her baseline. She told me to get my cold wet hands off of her. OBJECTIVE: Vital signs: Blood pressure is 154/69, heart rate 98, respiratory rate 18, temperature 98.3 degrees. Cardiovascular: Regular rate and rhythm. Pulmonary: Bilateral breath sounds. Clear to auscultation. GI: Soft, nontender, nondistended. Bowel sounds are positive. LABORATORY DATA: No new data today. Sugars seem to be doing okay. PROBLEM LIST: 1. Diabetes is stable on her current medications. 2. Seizure disorder. Controlled on her Vimpat. 3. Hypertension. Blood pressure is starting to creep up a little bit. She was on several medications. Right now, she is just on lisinopril and amlodipine. I am a little concerned about starting anything, just a ton of medications because she is frail and labile. I will put her back on a little bit of Toprol and we will see how she does. 4. Diabetes appears to be stable. DISPOSITION: We are waiting on court placement for power of trust and estates attorney and long-term placement. That is still in process. She has been here close 175 days. cc: Zachery Bill MD
[2018-05-08] MEDS: TOPROL XL PO SCH (16:14)
[2018-05-08] MEDS: LIPITOR PO SCH ×2 (22:56→23:18)
[2018-05-08] MEDS: BASAGLAR SUBQ SCH (23:18)
[2018-05-09] MEDS: HUMULIN R (PARKWAY) SUBQ SCH ×4 (06:28→22:18)
[2018-05-09] MEDS: ASPIRIN PO SCH (10:35)
[2018-05-09] MEDS: SEROQUEL PO SCH ×2 (10:35→22:18)
[2018-05-09] MEDS: VICTOZA SUBQ SCH (10:36)
[2018-05-09] MEDS: COLACE PO SCH (10:36)
[2018-05-09] MEDS: NORVASC PO SCH (10:36)
[2018-05-09] MEDS: PRINIVIL PO SCH ×2 (10:36→22:18)
[2018-05-09] MEDS: TOPROL XL PO SCH (10:36)
[2018-05-09] MEDS: JANUVIA PO SCH (10:36)
[2018-05-09] MEDS: VIMPAT PO SCH ×2 (10:36→22:17)
--- NOTE | 2018-05-09 10:36 | PROGRESS NOTE ---
DATE: 05/09/2018 SUBJECTIVE: Patient is lying in bed and without any acute issues. OBJECTIVE: Vital Signs: Temperature 98.1 degrees, pulse 90 per minute, respiratory rate 18 per minute, blood pressure 167/81, pulse oximetry 100% on room air. Cardiovascular System: First and second heart sounds are audible without any murmurs or gallops. Respiratory System: No respiratory distress noted. Bilateral lung air entry is good without any rales or rhonchi. Gastrointestinal System: Abdomen is soft and nondistended. It is nontender and no viscera are palpable. Normal bowel sounds are present. DIAGNOSTIC DATA: No new labs have been done. She did have H and H of 10.9 and 34.0 on 05/06/2018, however. In comparison, her hemoglobin and hematocrit were 12.9 and 40.3 on 02/27/2018. IMPRESSION AND PLAN: 1. Type 2 diabetes mellitus, for which we will continue with current medications, including Victoza along with Januvia. She will also get insulin as per sliding scale. 2. Hypertension. That has been mostly stable, although it does get elevated whenever she is having some restlessness. We will continue with lisinopril 20 mg daily along with amlodipine 5 mg daily. She will also continue with metoprolol 25 mg daily and low-salt diet. 3. Seizure disorder that has been stable, for which patient will continue with Vimpat 200 mg orally twice daily. 4. Anemia of unknown etiology. I am going to obtain stool for Hemoccult to make sure there is no occult blood loss. We will also obtain iron profile along with ferritin, B 12 and folate levels in the morning tomorrow. We will also repeat a complete blood count in the morning tomorrow. 5. The patient is having social neglect, and the case is still with the court. We will transfer her to a retirement facility once we receive a court order. cc: Hernan Morelos MD
[2018-05-09] MEDS: BASAGLAR SUBQ SCH (22:17)
[2018-05-09] MEDS: LIPITOR PO SCH (22:18)
[2018-05-10] MEDS: HUMULIN R (PARKWAY) SUBQ SCH ×4 (06:35→22:43)
[2018-05-10 07:38] LABS: BASO# 0.02 X1000 (0.0-0.2); BASO% 0.2 % (0.0-0.8); EOS# 0.11 X1000 (0.0-0.7); EOS% 1.3 % (0.0-10.0); HEMATOCRIT 35.9 % (37.0-47.0); HEMOGLOBIN 11.6 g/dL (12.0-16.0); IMM GRAN# 0.05 X1000 (0.0-0.04); IMM GRAN% 0.6 % (0.0-0.5); LYMPH# 1.36 X1000 (1.2-3.4); LYMPH% 15.8 % (20.5-51.1); MCH 27.7 PG (27-31); MCHC 32.3 g/dL (33-37); MCV 85.7 FL (81-99); MONO% 8.1 % (1.7-9.3); MPV 11.1 FL (7.4-10.4); NEUT# 6.39 X1000 (1.4-6.5); PLT 263 X1000 (130-400); RBC 4.19 XMIL (4.2-5.4); RDW 15.3 % (11.5-14.5); WBC 8.63 X1000 (4.8-10.8)
[2018-05-10 08:23] LABS: AGAP 10; ALBUMIN 3.8 g/dL (3.5-5.0); ALKALINE PHOSPHATASE 102 U/L (32-104); BUN 13 mg/dL (8-22); CALCIUM 9.5 mg/dL (8.8-10.2); CHLORIDE 108 mmol/L (98-107); COSMO 295; CREATININE 0.6 mg/dL (0.5-0.9); ESTIMATED GFR > 60; GLUCOSE 240 mg/dL (70-104); GOT 25 U/L (10-30); GPT 52 U/L (10-36); IRON SATURATION 20 %; MAGNESIUM 2.2 mg/dL (1.5-2.7); POTASSIUM 3.9 mmol/L (3.5-5.1); SODIUM 144 mmol/L (136-145); TCO2 27 mmol/L (25-35); TIBC 222 ug/dL; TOTAL IRON 45 ug/dL (49-151); TOTAL PROTEIN 6.5 g/dL (6.3-8.3); UNBOUND IRON 177 ug/dL (112-346)
[2018-05-10 08:26] LABS: HEMOGLOBIN A1C 8.2 % (4.8-6.0)
[2018-05-10] MEDS: PRINIVIL PO SCH ×3 (10:06→23:07)
[2018-05-10] MEDS: VIMPAT PO SCH ×3 (10:06→23:07)
[2018-05-10] MEDS: NORVASC PO SCH (10:06)
[2018-05-10] MEDS: JANUVIA PO SCH (10:06)
[2018-05-10] MEDS: SEROQUEL PO SCH ×3 (10:06→23:07)
[2018-05-10] MEDS: COLACE PO SCH (10:06)
[2018-05-10] MEDS: VICTOZA SUBQ SCH (10:07)
[2018-05-10] MEDS: TOPROL XL PO SCH (10:08)
[2018-05-10] MEDS: ASPIRIN PO SCH (10:14)
--- NOTE | 2018-05-10 10:40 | PROGRESS NOTE ---
DATE: 05/10/2018 SUBJECTIVE: Patient is not able to communicate properly and is lying in bed. OBJECTIVE: Vital Signs: Temperature 97.3 degrees, pulse 78 per minute, respiratory rate 18 per minute, blood pressure 194/86, pulse oximetry 100% on room air. Cardiovascular System: First and second heart sounds are audible without any murmurs or gallops. Respiratory System: No respiratory distress noted. Bilateral lung air entry is good without any rales or rhonchi. Abdomen: Nondistended and nontender on palpation. Normal bowel sounds are present. DIAGNOSTIC DATA: CBC shows hemoglobin of 11.6 and hematocrit 35.9, but her hemoglobin and hematocrit have remained stable. Comprehensive metabolic panel showed glucose level of 240. Rest of the CMP is nondiagnostic. Vitamin B12 level was found to be 1,184 and ferritin level is pending at this time. Hemoglobin A1c was found to be elevated at 8.2. IMPRESSIONS: 1. Uncontrolled type 2 diabetes mellitus. 2. Hypertension. 3. Seizure disorder. 4. Anemia. That has been stable but is of unknown etiology. PLAN: 1. The patient will be continued with Victoza along with Januvia and I am going to increase the dose of Lantus to 45 units subcutaneously every 24 hours. She will continue with insulin as per sliding scale as well. 2. The patient's blood pressure has been stable overall, for which we will continue with lisinopril 20 mg daily along with amlodipine 5 mg daily. She will also continue with metoprolol 25 mg daily along with a low-salt diet. Her blood pressure does go up whenever she is restless. 3. Patient's seizure disorder has been stable, for which patient will continue with Vimpat 200 mg orally twice daily. 4. Patient is having social neglect and the case is still with the court. We will transfer her to a group home facility once we receive a court order. cc: Hernan Morelos MD
[2018-05-10 13:53] LABS: FERRITIN 38 ng/mL (13-150)
[2018-05-10] MEDS: LIPITOR PO SCH ×2 (22:51→23:06)
[2018-05-10] MEDS: BASAGLAR SUBQ SCH (22:51)
[2018-05-10] MEDS: STERILE WATER INJ. INJ PRN ×2 (23:08→23:21)
[2018-05-10] MEDS: GEODON IM PRN ×2 (23:08→23:22)
[2018-05-11] MEDS: HUMULIN R (PARKWAY) SUBQ SCH ×4 (07:17→22:04)
[2018-05-11] MEDS: VIMPAT PO SCH ×2 (10:23→22:05)
[2018-05-11] MEDS: SEROQUEL PO SCH ×2 (10:23→22:05)
[2018-05-11] MEDS: COLACE PO SCH (10:24)
[2018-05-11] MEDS: NORVASC PO SCH (10:24)
[2018-05-11] MEDS: ASPIRIN PO SCH (10:24)
[2018-05-11] MEDS: TOPROL XL PO SCH (10:24)
[2018-05-11] MEDS: PRINIVIL PO SCH ×2 (10:24→22:05)
[2018-05-11] MEDS: VICTOZA SUBQ SCH (10:24)
[2018-05-11] MEDS: JANUVIA PO SCH (10:24)
[2018-05-11] MEDS: STERILE WATER INJ. INJ PRN (12:58)
[2018-05-11] MEDS: GEODON IM PRN (12:58)
[2018-05-11] MEDS: BASAGLAR SUBQ SCH (21:59)
[2018-05-11] MEDS: LIPITOR PO SCH (22:04)
--- NOTE | 2018-05-11 23:23 | PROGRESS NOTE ---
DATE: 05/11/2018 Patient seen and examined. She currently has no changes physically. We will continue treatment of her current treatment. We will continue her medications and continue to follow. cc: Ricky Daley MD MTDD
[2018-05-12] MEDS: HUMULIN R (PARKWAY) SUBQ SCH ×4 (06:35→22:17)
[2018-05-12] MEDS: SEROQUEL PO SCH ×4 (08:59→22:29)
[2018-05-12] MEDS: ASPIRIN PO SCH (08:59)
[2018-05-12] MEDS: PRINIVIL PO SCH ×4 (08:59→22:29)
[2018-05-12] MEDS: COLACE PO SCH (08:59)
[2018-05-12] MEDS: NORVASC PO SCH (08:59)
[2018-05-12] MEDS: TOPROL XL PO SCH (08:59)
[2018-05-12] MEDS: JANUVIA PO SCH (08:59)
[2018-05-12] MEDS: VICTOZA SUBQ SCH (09:00)
[2018-05-12] MEDS: VIMPAT PO SCH ×4 (09:08→22:29)
[2018-05-12] MEDS: BASAGLAR SUBQ SCH (22:10)
[2018-05-12] MEDS: LIPITOR PO SCH ×3 (22:10→22:28)
--- NOTE | 2018-05-13 05:13 | PROGRESS NOTE ---
DATE: 05/13/2018 SUBJECTIVE: Patient has no new complaints. OBJECTIVE: Vital signs reviewed. Blood pressure stable. Physical exam unchanged. ASSESSMENT: 1. Uncontrolled diabetes due to patient's frequent and drastic changes in oral intake. It has been very difficult to control her blood sugars. 2. Hypertension. 3. Seizure disorder. 4. Anemia. PLAN: Will continue in the hospital. Continue to follow her blood sugars, blood pressures, and her seizure disorder. cc: Ricky Daley MD
[2018-05-13] MEDS: D50W SYRINGE IV PRN (05:45)
[2018-05-13] MEDS: HUMULIN R (PARKWAY) SUBQ SCH ×4 (06:25→23:07)
[2018-05-13] MEDS: ASPIRIN PO SCH (09:14)
[2018-05-13] MEDS: SEROQUEL PO SCH ×3 (09:14→23:14)
[2018-05-13] MEDS: NORVASC PO SCH (09:14)
[2018-05-13] MEDS: PRINIVIL PO SCH ×3 (09:14→23:15)
[2018-05-13] MEDS: JANUVIA PO SCH (09:14)
[2018-05-13] MEDS: TOPROL XL PO SCH (09:14)
[2018-05-13] MEDS: COLACE PO SCH (09:14)
[2018-05-13] MEDS: VICTOZA SUBQ SCH (09:15)
[2018-05-13] MEDS: VIMPAT PO SCH ×3 (09:34→23:13)
[2018-05-13] MEDS: LIPITOR PO SCH ×2 (23:07→23:14)
[2018-05-13] MEDS: BASAGLAR SUBQ SCH (23:08)
--- NOTE | 2018-05-14 05:02 | PROGRESS NOTE ---
DATE: 05/13/2018 SUBJECTIVE: The patient has no complaints. Unfortunately, her dementia and chronically ill medical status makes her blood sugar control quite difficult, as sometimes she will eat. Sometimes, as she has done in the past few days, she will completely refuse to eat, and develops a significant hypoglycemia. PHYSICAL EXAMINATION: Vital Signs: Reviewed. Blood pressure 174/74. She is in no respiratory distress. Cardiovascular: Regular rate. Chest: Clear. ASSESSMENT: 1. Uncontrolled type 2 diabetes, secondary to patient's erratic eating habits due to her dementia. 2. Dementia. 3. Hypertension. 4. Seizure disorder. 5. Anemia. 6. DNR. PLAN: The patient will continue on her current medication regimen. We will decrease her insulin, and will follow. cc: Ricky Daley MD
[2018-05-14] MEDS: HUMULIN R (PARKWAY) SUBQ SCH ×5 (06:18→23:56)
[2018-05-14] MEDS: NORVASC PO SCH (09:35)
[2018-05-14] MEDS: JANUVIA PO SCH (09:35)
[2018-05-14] MEDS: COLACE PO SCH (09:35)
[2018-05-14] MEDS: TOPROL XL PO SCH (09:35)
[2018-05-14] MEDS: ASPIRIN PO SCH (09:35)
[2018-05-14] MEDS: SEROQUEL PO SCH ×2 (09:35→21:49)
[2018-05-14] MEDS: PRINIVIL PO SCH ×2 (09:35→21:50)
[2018-05-14] MEDS: VIMPAT PO SCH ×2 (09:36→21:49)
[2018-05-14] MEDS: VICTOZA SUBQ SCH (09:41)
[2018-05-14] MEDS: LIPITOR PO SCH (21:49)
[2018-05-14] MEDS: BASAGLAR SUBQ SCH (21:50)
--- NOTE | 2018-05-15 02:36 | PROGRESS NOTE ---
DATE: 05/14/2018 SUBJECTIVE: Patient seen and examined on 05/14/2018. No changes in current status. PHYSICAL EXAMINATION: General: On physical exam, she is awake. She is in no distress. Her blood sugars have been better since decreasing her Lantus. She has had no further hypoglycemic episodes. ASSESSMENT: 1. Uncontrolled diabetes, mainly secondary to very erratic eating habits. We are having to allow hyperglycemia due to her frequent hypoglycemic episodes if she has tight control. 2. Hypertension. 3. Seizure disorder. 4. Do Not Resuscitate. PLAN: As stated multiple times, we will continue to follow. Hopefully eventually she will be able to transition to long-term care. cc: Ricky Daley MD
[2018-05-15] MEDS: HUMULIN R (PARKWAY) SUBQ SCH ×4 (06:25→22:55)
[2018-05-15 06:45] LABS: HEMATOCRIT 33.8 % (37.0-47.0); HEMOGLOBIN 10.9 g/dL (12.0-16.0); MCH 28.1 PG (27-31); MCHC 32.2 g/dL (33-37); MCV 87.1 FL (81-99); MPV 11.1 FL (7.4-10.4); RBC 3.88 XMIL (4.2-5.4); RDW 15.5 % (11.5-14.5); WBC 8.88 X1000 (4.8-10.8)
[2018-05-15 06:58] LABS: AGAP 13; BUN 19 mg/dL (8-22); CHLORIDE 107 mmol/L (98-107); COSMO 290; CREATININE 0.6 mg/dL (0.5-0.9); ESTIMATED GFR > 60; GLUCOSE 140 mg/dL (70-104); POTASSIUM 3.8 mmol/L (3.5-5.1); SODIUM 143 mmol/L (136-145); TCO2 23 mmol/L (25-35)
[2018-05-15] MEDS: TOPROL XL PO SCH (09:01)
[2018-05-15] MEDS: ASPIRIN PO SCH (09:01)
[2018-05-15] MEDS: PRINIVIL PO SCH ×2 (09:02→22:13)
[2018-05-15] MEDS: COLACE PO SCH (09:02)
[2018-05-15] MEDS: NORVASC PO SCH (09:02)
[2018-05-15] MEDS: SEROQUEL PO SCH ×2 (09:02→22:10)
[2018-05-15] MEDS: JANUVIA PO SCH (09:02)
[2018-05-15] MEDS: VIMPAT PO SCH ×2 (09:02→22:10)
[2018-05-15] MEDS: VICTOZA SUBQ SCH (09:11)
--- NOTE | 2018-05-15 09:21 | PROGRESS NOTE ---
DATE: 05/15/2018 SUBJECTIVE: Patient is laying in bed without having any complaints. OBJECTIVE: Vital Signs: Temperature 97.2 degrees, pulse 85 per minute, respiratory rate 18 per minute, blood pressure 178/68, pulse oximetry 100% on room air. Cardiovascular System: First and second heart sounds are audible without any murmurs or gallops. Respiratory System: No respiratory distress noted. Bilateral lung air entry is good without any rales or rhonchi. Gastrointestinal: Abdomen is soft and nondistended. Normal bowel sounds are present. IMPRESSION: 1. Uncontrolled type 2 diabetes mellitus. 2. Hypertension. 3. Seizure disorder. PLAN: 1. The patient will be continued with Victoza along with Januvia and Lantus insulin subcutaneously. She will also continue with lispro with insulin as per sliding scale. We will make sure she does not eat any simple carbohydrates. 2. Blood pressure gets worse whenever she is agitated. Otherwise, blood pressure has been stable with lisinopril 20 mg daily along with amlodipine 5 mg daily. She will also continue with metoprolol 25 mg daily and low-salt diet. 3. Seizure disorder has been stable for which patient will continue with Vimpat 200 mg orally twice daily. 4. Patient is still waiting for a court order to be transferred to a longterm facility. cc: Hernan Morelos MD
[2018-05-15] MEDS: LIPITOR PO SCH (22:10)
[2018-05-15] MEDS: BASAGLAR SUBQ SCH (22:13)
[2018-05-16] MEDS: HUMULIN R (PARKWAY) SUBQ SCH ×4 (07:39→20:29)
[2018-05-16] MEDS: JANUVIA PO SCH (08:49)
[2018-05-16] MEDS: VIMPAT PO SCH ×2 (08:49→20:22)
[2018-05-16] MEDS: PRINIVIL PO SCH ×2 (08:50→20:23)
[2018-05-16] MEDS: NORVASC PO SCH (08:50)
[2018-05-16] MEDS: COLACE PO SCH (08:50)
[2018-05-16] MEDS: TOPROL XL PO SCH (08:50)
[2018-05-16] MEDS: ASPIRIN PO SCH (08:50)
[2018-05-16] MEDS: SEROQUEL PO SCH ×2 (08:50→20:22)
[2018-05-16] MEDS: VICTOZA SUBQ SCH (10:04)
--- NOTE | 2018-05-16 19:43 | PROGRESS NOTE ---
DATE: 05/16/2018 SUBJECTIVE: The patient has no focal complaints. OBJECTIVE: Blood pressure is 165/85, heart rate of 18, respiratory rate 17, temperature 97.6 degrees.Cardiovascular: Regular rate and rhythm. Pulmonary: Bilateral breath sounds, clear to auscultation. GI: Soft, nontender, nondistended. Bowel sounds are positive. LABORATORY DATA: Looked pretty good yesterday. PROBLEMS: 1. Diabetes, still not very well controlled and she is very labile, but overall seems to be doing okay. 2. Seizure disorder. She is on Vimpat and seems to be doing okay. 3. Hypertension. Continue regular medications. DISPOSITION: Pending power of freight flagman guardianship. We will continue to follow closely. cc: Zachery Bill MD
[2018-05-16] MEDS: LIPITOR PO SCH (20:22)
[2018-05-16] MEDS: BASAGLAR SUBQ SCH (20:22)
[2018-05-17] MEDS: HUMULIN R (PARKWAY) SUBQ SCH ×4 (07:44→21:44)
[2018-05-17] MEDS: PRINIVIL PO SCH ×2 (10:48→22:48)
[2018-05-17] MEDS: SEROQUEL PO SCH ×2 (10:49→22:48)
[2018-05-17] MEDS: ASPIRIN PO SCH (10:49)
[2018-05-17] MEDS: JANUVIA PO SCH (10:49)
[2018-05-17] MEDS: COLACE PO SCH (10:49)
[2018-05-17] MEDS: TOPROL XL PO SCH (10:49)
[2018-05-17] MEDS: NORVASC PO SCH (10:49)
[2018-05-17] MEDS: VIMPAT PO SCH ×2 (10:49→22:48)
[2018-05-17] MEDS: VICTOZA SUBQ SCH (12:42)
--- NOTE | 2018-05-17 15:17 | PROGRESS NOTE ---
DATE: 05/17/2018 SUBJECTIVE: She is sitting up in bed. She is eating her mac and cheese. She seems at her baseline level of functioning. Her blood sugar did drop a bit this morning it looks like I thought it did yep to 49 but had been as high as 427 yesterday evening. PHYSICAL EXAM: Blood pressure 172/90, heart rate 91, respiratory 20, temperature 98.2 degrees.Cardiovascular: Regular rate and rhythm. Pulmonary: Bilateral breath sounds. Clear to auscultation. 1. Diabetes. Continue to follow closely. Still very labile, mostly in the early mornings. She is on Lantus at bedtime, maybe we need to give that to her earlier in the day maybe let us give it to her at 1900 and will see how she does, maybe that will be start date today. 2. Hypertension. Will continue to follow closely. DISPOSITION: I really not sure. Obviously it is rehab but the [id number] as delineated by the state is not set in stone as to take this patient over and then provide guardianship so that she can be placed long-term. She has been here 184 days. I am not sure what the next step is. At this point she is boarding here. We are just kind of monitoring her but we will see how things go. cc: Zachery Bill MD
[2018-05-17] MEDS: LIPITOR PO SCH (22:48)
[2018-05-18] MEDS: VICTOZA SUBQ SCH (08:22)
[2018-05-18] MEDS: ASPIRIN PO SCH (08:25)
[2018-05-18] MEDS: VIMPAT PO SCH ×2 (08:25→20:56)
[2018-05-18] MEDS: TOPROL XL PO SCH (08:25)
[2018-05-18] MEDS: COLACE PO SCH (08:26)
[2018-05-18] MEDS: JANUVIA PO SCH (08:26)
[2018-05-18] MEDS: NORVASC PO SCH (08:26)
[2018-05-18] MEDS: SEROQUEL PO SCH ×2 (08:26→20:57)
[2018-05-18] MEDS: PRINIVIL PO SCH ×2 (08:26→20:57)
[2018-05-18] MEDS: HUMULIN R (PARKWAY) SUBQ SCH ×4 (11:56→22:31)
--- NOTE | 2018-05-18 12:17 | PROGRESS NOTE ---
DATE: 05/18/2018 SUBJECTIVE: Patient has no focal complaints. ASSESSMENT AND PLAN: 1. Blood pressure is very high. I am not sure if she has taken all of her medications. We had an episode earlier where we gave her too much medicines or she had a low blood pressure. Currently she is on lisinopril 20 b.i.d. and Norvasc 5 daily. Will give her another dose. 2. Blood sugars are not controlled. I adjusted her insulin but I think she ended up not being able to get it. Anyway, we are going to adjust her insulin and see if we can avoid the battery assembler hypoglycemia she is having. cc: Zachery Bill MD
[2018-05-18] MEDS: BASAGLAR SUBQ SCH (16:36)
[2018-05-18] MEDS: LIPITOR PO SCH (20:57)
[2018-05-19] MEDS: HUMULIN R (PARKWAY) SUBQ SCH ×2 (06:45→16:16)
[2018-05-19] MEDS: ASPIRIN PO SCH (10:23)
[2018-05-19] MEDS: SEROQUEL PO SCH ×2 (10:23→21:36)
[2018-05-19] MEDS: JANUVIA PO SCH (10:23)
[2018-05-19] MEDS: NORVASC PO SCH (10:24)
[2018-05-19] MEDS: TOPROL XL PO SCH (10:24)
[2018-05-19] MEDS: VICTOZA SUBQ SCH (10:25)
[2018-05-19] MEDS: PRINIVIL PO SCH ×2 (10:25→21:36)
[2018-05-19] MEDS: COLACE PO SCH (10:25)
[2018-05-19] MEDS: VIMPAT PO SCH ×2 (10:39→21:36)
--- NOTE | 2018-05-19 14:25 | PROGRESS NOTE ---
DATE: 05/19/2018 SUBJECTIVE: The patient has no focal complaints. OBJECTIVE: Vital Signs: Blood pressure 194/91, heart rate 83, respiratory rate 16, temperature 97.9 degrees. Cardiovascular: Regular rate and rhythm. Pulmonary: Bilateral breath sounds clear to auscultation. GI: Soft, nontender, nondistended. Bowel sounds are positive. PROBLEM LIST: Hypertension, appears to be stable. Will continue regular medications and follow. She is still somewhat elevated. Lisinopril 20 b.i.d., Toprol 25, and she has been on amlodipine. I guess we will increase that to 10. I think she has been on that level before, but in any case, will see how she does. DISPOSITION: Pending her clinical situation. Anticipate discharge once we can get her guardianship established. cc: Zachery Bill MD
[2018-05-19] MEDS: BASAGLAR SUBQ SCH (16:48)
[2018-05-19] MEDS: LIPITOR PO SCH (21:37)
[2018-05-20] MEDS: HUMULIN R (PARKWAY) SUBQ SCH ×4 (07:04→21:44)
[2018-05-20] MEDS: VIMPAT PO SCH ×2 (09:08→21:47)
[2018-05-20] MEDS: JANUVIA PO SCH (09:08)
[2018-05-20] MEDS: NORVASC PO SCH ×2 (09:08)
[2018-05-20] MEDS: SEROQUEL PO SCH ×2 (09:08→21:43)
[2018-05-20] MEDS: PRINIVIL PO SCH ×2 (09:08→21:43)
[2018-05-20] MEDS: ASPIRIN PO SCH (09:08)
[2018-05-20] MEDS: COLACE PO SCH (09:08)
[2018-05-20] MEDS: VICTOZA SUBQ SCH (09:08)
[2018-05-20] MEDS: TOPROL XL PO SCH (09:08)
--- NOTE | 2018-05-20 13:05 | PROGRESS NOTE ---
DATE: 05/20/2018 SUBJECTIVE: She is not real talkative today, but she is awake and looking around. OBJECTIVE: Vital Signs: Blood pressure 167/72, heart rate 77, respiratory rate 16, temperature 98 degrees. Cardiovascular: Regular rate and rhythm. Pulmonary: Bilateral breath sounds. Clear to auscultation. GI: Soft, nontender, nondistended. Bowel sounds are positive. LABORATORY DATA: Sugars have been 157, 257, 292. She seems to be doing okay. PROBLEM LIST: 1. Hypertension. Continue regular medications. Seems overall stable. 2. Diabetes is stable currently. We will continue blood sugars. Will continue regular medications and follow. 3. Disposition: Still waiting on guardianship so that she can receive long-term placement. cc: Zachery Bill MD
[2018-05-20] MEDS: BASAGLAR SUBQ SCH (17:32)
[2018-05-20] MEDS: LIPITOR PO SCH (21:43)
[2018-05-21] MEDS: HUMULIN R (PARKWAY) SUBQ SCH ×4 (06:02→20:56)
[2018-05-21] MEDS: VICTOZA SUBQ SCH (09:35)
[2018-05-21] MEDS: SEROQUEL PO SCH ×2 (09:35→20:52)
[2018-05-21] MEDS: JANUVIA PO SCH (09:36)
[2018-05-21] MEDS: VIMPAT PO SCH ×2 (09:36→20:53)
[2018-05-21] MEDS: COLACE PO SCH (09:36)
[2018-05-21] MEDS: TOPROL XL PO SCH (09:36)
[2018-05-21] MEDS: NORVASC PO SCH ×2 (09:36)
[2018-05-21] MEDS: ASPIRIN PO SCH (09:36)
[2018-05-21] MEDS: PRINIVIL PO SCH ×2 (09:36→20:53)
--- NOTE | 2018-05-21 12:23 | PROGRESS NOTE ---
DATE: 05/21/2018 SUBJECTIVE: The patient has no focal complaints. OBJECTIVE: Blood pressure is 146/82, heart rate 90, respiratory 16, temperature 97.8, oxygen sat 95% on room air. Cardiovascular: Regular rate and rhythm. Pulmonary: Bilateral breath sounds. Clear to auscultation. GI: Soft, nontender, nondistended. Bowel sounds are positive. LABORATORY DATA: Blood sugars have been stable. PROBLEM LIST: 1. Hypertension. She is controlled on current medications for age. 2. Diabetes. Blood sugars are overall improved. They are still not completely improved but they improved over the last 24 hours, at least maintaining below 200 and mostly in the 200s. DISPOSITION: We are still waiting on guardianship and long-term placement. We will continue to follow closely. cc: Zachery Bill MD
[2018-05-21] MEDS: BASAGLAR SUBQ SCH (17:50)
[2018-05-21] MEDS: LIPITOR PO SCH (20:52)
[2018-05-22] MEDS: HUMULIN R (PARKWAY) SUBQ SCH ×4 (06:35→21:11)
[2018-05-22] MEDS: VIMPAT PO SCH ×2 (09:46→21:14)
[2018-05-22] MEDS: SEROQUEL PO SCH ×2 (09:47→21:14)
[2018-05-22] MEDS: ASPIRIN PO SCH (09:47)
[2018-05-22] MEDS: PRINIVIL PO SCH ×2 (09:47→21:15)
[2018-05-22] MEDS: VICTOZA SUBQ SCH (09:47)
[2018-05-22] MEDS: COLACE PO SCH (09:47)
[2018-05-22] MEDS: NORVASC PO SCH (09:47)
[2018-05-22] MEDS: JANUVIA PO SCH (09:47)
[2018-05-22] MEDS: TOPROL XL PO SCH (09:47)
--- NOTE | 2018-05-22 16:53 | PROGRESS NOTE ---
DATE: 05/22/2018 SUBJECTIVE: Patient has no focal complaints. OBJECTIVE: Blood pressure is 113/58, heart rate 94, respiratory rate 20, temperature 97.4 degrees.Cardiovascular: Regular rate and rhythm. Pulmonary: Bilateral breath sounds. Clear to auscultation. GI: Soft, nontender, nondistended. Bowel sounds are positive. PROBLEM LIST: 1. Type 2 diabetes. Appears stable. 2. Hypertension. Continue regular medications. DISPOSITION: Awaiting guardianship and long-term placement. cc: Zachery Bill MD
[2018-05-22] MEDS: BASAGLAR SUBQ SCH (17:02)
[2018-05-22] MEDS: LIPITOR PO SCH (21:14)
[2018-05-23] MEDS: HUMULIN R (PARKWAY) SUBQ SCH ×3 (07:21→16:23)
--- NOTE | 2018-05-23 10:37 | PROGRESS NOTE ---
DATE: 05/23/2018 SUBJECTIVE: The patient is in a really good mood this morning and has been very pleasant. She has been communicating as well. OBJECTIVE: Vital Signs: Temperature 97.5 degrees, pulse 74 per minute, respiratory rate 16 per minute, blood pressure 187/78, pulse oximetry 100% on room air. Her blood pressure was 142/53 earlier this morning. Cardiovascular System: First and second heart sounds are audible without any murmurs or gallops. Respiratory System: No respiratory distress noted. Bilateral lung air entry is good without any rales or rhonchi. Gastrointestinal System: Abdomen is soft and nondistended. Normal bowel sounds are present. DIAGNOSTIC DATA: No new diagnostic data has been done during the previous 48 hours. IMPRESSION: 1. Uncontrolled type 2 diabetes mellitus that has now improved. 2. Hypertension. 3. Seizure disorder. PLAN: 1. The patient will be continued with Lantus insulin along with Victoza and Januvia. She will also continue getting regular insulin subcutaneously as per sliding scale. 2. Blood pressure does get worse whenever she is agitated. Otherwise, her blood pressure has been within desired range, and we are going to continue with lisinopril, along with amlodipine. 3. Seizure disorder has been stable for which patient will continue with Vimpat 200 mg orally twice daily. 4. Patient is still waiting for court order to be transferred to a custodial facility. cc: Hernan Morelos MD
[2018-05-23] MEDS: SEROQUEL PO SCH (10:46)
[2018-05-23] MEDS: COLACE PO SCH (10:47)
[2018-05-23] MEDS: TOPROL XL PO SCH (10:47)
[2018-05-23] MEDS: JANUVIA PO SCH (10:47)
[2018-05-23] MEDS: PRINIVIL PO SCH (10:47)
[2018-05-23] MEDS: ASPIRIN PO SCH (10:47)
[2018-05-23] MEDS: NORVASC PO SCH (10:48)
[2018-05-23] MEDS: VIMPAT PO SCH (10:48)
[2018-05-23] MEDS: VICTOZA SUBQ SCH (10:48)
[2018-05-23] MEDS: BASAGLAR SUBQ SCH (16:24)
[2018-05-24] MEDS: HUMULIN R (PARKWAY) SUBQ SCH ×6 (03:18→23:50)
[2018-05-24] MEDS: LIPITOR PO SCH ×2 (03:21→22:16)
[2018-05-24] MEDS: VIMPAT PO SCH ×3 (03:22→22:16)
[2018-05-24] MEDS: SEROQUEL PO SCH ×3 (03:22→22:16)
[2018-05-24] MEDS: PRINIVIL PO SCH ×3 (03:22→22:16)
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
[2018-05-24] MEDS: NORVASC PO SCH (11:23)
[2018-05-24] MEDS: ASPIRIN PO SCH (11:23)
[2018-05-24] MEDS: JANUVIA PO SCH (11:23)
[2018-05-24] MEDS: TOPROL XL PO SCH (11:24)
[2018-05-24] MEDS: VICTOZA SUBQ SCH (11:24)
[2018-05-24] MEDS: COLACE PO SCH (11:24)
[2018-05-24] MEDS: BASAGLAR SUBQ SCH (16:44)
[2018-05-25] MEDS: HUMULIN R (PARKWAY) SUBQ SCH ×4 (06:56→22:38)
[2018-05-25] MEDS: ASPIRIN PO SCH (08:37)
[2018-05-25] MEDS: TOPROL XL PO SCH (08:38)
[2018-05-25] MEDS: JANUVIA PO SCH (08:38)
[2018-05-25] MEDS: PRINIVIL PO SCH ×2 (08:38→22:39)
[2018-05-25] MEDS: VIMPAT PO SCH ×2 (08:38→22:39)
[2018-05-25] MEDS: SEROQUEL PO SCH ×2 (08:38→22:39)
[2018-05-25] MEDS: NORVASC PO SCH (08:38)
[2018-05-25] MEDS: COLACE PO SCH (08:38)
[2018-05-25] MEDS: VICTOZA SUBQ SCH (08:39)
[2018-05-25] MEDS: BASAGLAR SUBQ SCH (16:58)
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
[2018-05-25] MEDS: LIPITOR PO SCH (22:39)
[2018-05-26] MEDS: HUMULIN R (PARKWAY) SUBQ SCH ×4 (07:54→22:47)
[2018-05-26] MEDS: COLACE PO SCH (08:14)
[2018-05-26] MEDS: JANUVIA PO SCH (08:14)
[2018-05-26] MEDS: ASPIRIN PO SCH (08:14)
[2018-05-26] MEDS: NORVASC PO SCH (08:15)
[2018-05-26] MEDS: SEROQUEL PO SCH ×2 (08:15→22:49)
[2018-05-26] MEDS: PRINIVIL PO SCH ×2 (08:15→22:49)
[2018-05-26] MEDS: TOPROL XL PO SCH (08:15)
[2018-05-26] MEDS: VICTOZA SUBQ SCH (08:16)
[2018-05-26] MEDS: VIMPAT PO SCH ×2 (08:16→22:49)
[2018-05-26] MEDS: BASAGLAR SUBQ SCH (17:34)
--- NOTE | 2018-05-26 21:46 | PROGRESS NOTE ---
DATE: 05/26/2018 SUBJECTIVE: Patient has no complaints. OBJECTIVE: Vital Signs: Reviewed. Blood pressure is 140s to 150s, blood sugars 52 to 340. Physical Exam: Unchanged. PLAN: We will continue symptomatic care as needed. cc: Ricky Daley MD
[2018-05-26] MEDS: LIPITOR PO SCH (22:49)
[2018-05-27] MEDS: HUMULIN R (PARKWAY) SUBQ SCH ×4 (06:01→20:46)
[2018-05-27] MEDS: COLACE PO SCH (09:49)
[2018-05-27] MEDS: SEROQUEL PO SCH ×2 (09:49→20:47)
[2018-05-27] MEDS: VIMPAT PO SCH ×2 (09:49→20:47)
[2018-05-27] MEDS: TOPROL XL PO SCH (09:50)
[2018-05-27] MEDS: ASPIRIN PO SCH (09:50)
[2018-05-27] MEDS: JANUVIA PO SCH (09:50)
[2018-05-27] MEDS: VICTOZA SUBQ SCH (09:50)
[2018-05-27] MEDS: PRINIVIL PO SCH ×2 (09:50→20:48)
[2018-05-27] MEDS: NORVASC PO SCH (09:50)
[2018-05-27] MEDS: BASAGLAR SUBQ SCH (18:11)
[2018-05-27] MEDS: LIPITOR PO SCH (20:46)
[2018-05-28] MEDS: HUMULIN R (PARKWAY) SUBQ SCH ×4 (06:29→20:50)
--- NOTE | 2018-05-28 06:37 | PROGRESS NOTE ---
DATE: 05/27/2018 SUBJECTIVE: The patient does not have any complaints. VITAL SIGNS: Vital Signs: Stable. Blood pressure 150/90. PHYSICAL EXAMINATION: She has no changes in her current physical exam. PLAN: Will continue the patient in the hospital until which time further discharge planning can be obtained. cc: Ricky Daley MD
[2018-05-28 07:49] LABS: HEMATOCRIT 34.1 % (37.0-47.0); HEMOGLOBIN 10.8 g/dL (12.0-16.0); MCH 27.7 PG (27-31); MCHC 31.7 g/dL (33-37); MCV 87.4 FL (81-99); MPV 11.5 FL (7.4-10.4); RBC 3.9 XMIL (4.2-5.4); RDW 15.1 % (11.5-14.5)
[2018-05-28 07:58] LABS: AGAP 10; BUN 20 mg/dL (8-22); CALCIUM 9.4 mg/dL (8.8-10.2); CHLORIDE 112 mmol/L (98-107); COSMO 299; CREATININE 0.7 mg/dL (0.5-0.9); ESTIMATED GFR > 60; GLUCOSE 166 mg/dL (70-104); SODIUM 147 mmol/L (136-145); TCO2 26 mmol/L (25-35)
[2018-05-28] MEDS: COLACE PO SCH (10:21)
[2018-05-28] MEDS: JANUVIA PO SCH (10:21)
[2018-05-28] MEDS: ASPIRIN PO SCH (10:21)
[2018-05-28] MEDS: PRINIVIL PO SCH ×2 (10:22→20:46)
[2018-05-28] MEDS: TOPROL XL PO SCH (10:22)
[2018-05-28] MEDS: SEROQUEL PO SCH ×2 (10:22→20:46)
[2018-05-28] MEDS: NORVASC PO SCH (10:22)
[2018-05-28] MEDS: VICTOZA SUBQ SCH (10:32)
[2018-05-28] MEDS: VIMPAT PO SCH ×2 (10:32→20:47)
[2018-05-28] MEDS: BASAGLAR SUBQ SCH (18:26)
[2018-05-28] MEDS: LIPITOR PO SCH (20:47)
--- NOTE | 2018-05-29 00:04 | PROGRESS NOTE ---
DATE: 05/28/2018 SUBJECTIVE: Patient overall has no new complaints. States that she is okay. She is currently in a pleasant mood. PHYSICAL EXAMINATION: Vital signs: Reviewed. Temperature 97.6 degrees, pulse 85, blood pressure 136/69. Blood sugar stable to 56 to 323. PLAN: We will continue patient on in the hospital, continue to follow blood pressures and blood sugars. Further orders as needed. cc: Ricky Daley MD
[2018-05-29] MEDS: HUMULIN R (PARKWAY) SUBQ SCH ×4 (06:45→22:02)
[2018-05-29] MEDS: TOPROL XL PO SCH (09:27)
[2018-05-29] MEDS: PRINIVIL PO SCH ×2 (09:27→23:31)
[2018-05-29] MEDS: ASPIRIN PO SCH (09:27)
[2018-05-29] MEDS: JANUVIA PO SCH (09:27)
[2018-05-29] MEDS: SEROQUEL PO SCH ×2 (09:27→23:32)
[2018-05-29] MEDS: COLACE PO SCH (09:27)
[2018-05-29] MEDS: NORVASC PO SCH (09:27)
[2018-05-29] MEDS: VIMPAT PO SCH ×2 (09:28→23:31)
[2018-05-29] MEDS: VICTOZA SUBQ SCH (09:28)
--- NOTE | 2018-05-29 14:39 | PROGRESS NOTE ---
DATE: 05/29/2018 SUBJECTIVE: No changes. OBJECTIVE: Vital Signs: Reviewed. Blood pressure 134/56 and temperature 97.9. General: Visibly, she has no changes. PLAN: We will continue to observe. Adjust medications as needed. Await the opportunity to transfer her to a more permanent residence. cc: Ricky Daley MD
[2018-05-29] MEDS: BASAGLAR SUBQ SCH (17:32)
[2018-05-29] MEDS: LIPITOR PO SCH (23:32)
[2018-05-30] MEDS: HUMULIN R (PARKWAY) SUBQ SCH ×4 (06:43→21:20)
[2018-05-30] MEDS: ASPIRIN PO SCH (08:15)
[2018-05-30] MEDS: SEROQUEL PO SCH ×2 (08:15→21:19)
[2018-05-30] MEDS: COLACE PO SCH (08:15)
[2018-05-30] MEDS: JANUVIA PO SCH (08:15)
[2018-05-30] MEDS: VICTOZA SUBQ SCH (08:15)
[2018-05-30] MEDS: NORVASC PO SCH (08:15)
[2018-05-30] MEDS: PRINIVIL PO SCH ×2 (08:16→21:20)
[2018-05-30] MEDS: TOPROL XL PO SCH (08:16)
[2018-05-30] MEDS: VIMPAT PO SCH ×2 (08:16→21:19)
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
[2018-05-30] MEDS: BASAGLAR SUBQ SCH (16:42)
[2018-05-30] MEDS: LIPITOR PO SCH (21:19)
[2018-05-31] MEDS: HUMULIN R (PARKWAY) SUBQ SCH ×3 (06:30→17:22)
[2018-05-31] MEDS: PRINIVIL PO SCH ×2 (08:25→21:43)
[2018-05-31] MEDS: ASPIRIN PO SCH (08:26)
[2018-05-31] MEDS: NORVASC PO SCH (08:26)
[2018-05-31] MEDS: COLACE PO SCH (08:26)
[2018-05-31] MEDS: VIMPAT PO SCH ×2 (08:26→21:43)
[2018-05-31] MEDS: JANUVIA PO SCH (08:26)
[2018-05-31] MEDS: VICTOZA SUBQ SCH (08:26)
[2018-05-31] MEDS: TOPROL XL PO SCH (08:26)
[2018-05-31] MEDS: SEROQUEL PO SCH ×2 (08:26→21:43)
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
[2018-05-31] MEDS: BASAGLAR SUBQ SCH (17:22)
[2018-05-31] MEDS: LIPITOR PO SCH (21:43)
[2018-06-01] MEDS: HUMULIN R (PARKWAY) SUBQ SCH ×5 (02:02→21:12)
[2018-06-01] MEDS: PRINIVIL PO SCH ×2 (08:27→21:11)
[2018-06-01] MEDS: SEROQUEL PO SCH ×2 (08:27→21:11)
[2018-06-01] MEDS: NORVASC PO SCH (08:27)
[2018-06-01] MEDS: TOPROL XL PO SCH (08:27)
[2018-06-01] MEDS: ASPIRIN PO SCH (08:27)
[2018-06-01] MEDS: COLACE PO SCH (08:27)
[2018-06-01] MEDS: JANUVIA PO SCH (08:27)
[2018-06-01] MEDS: VICTOZA SUBQ SCH (08:28)
[2018-06-01] MEDS: VIMPAT PO SCH ×2 (11:14→21:11)
--- NOTE | 2018-06-01 14:49 | PROGRESS NOTE ---
DATE: 06/01/2018 SUBJECTIVE: The patient has no complaints. OBJECTIVE: Vital Signs: Blood pressure is 153/68, heart rate 86, respiratory rate 18, temperature 97.7 degrees, 100% on room air. Cardiovascular: Regular rate and rhythm. Pulmonary: Bilateral breath sounds. Clear to auscultation. Gastrointestinal: Soft, nontender, nondistended. Bowel sounds are positive. PROBLEM LIST: 1. Diabetes is still intermittently controlled when. We have pushed for control in the past, she has had episodic hypoglycemia and then periods of unresponsiveness. It has been very difficult to manage her diabetes. Currently she is on Januvia, glargine, which could be possibly titrated up on. She is on 30 daily, and her sugars have been running above 200 on average, even above 300, and one was above 500 yesterday. I am going to push it up just a hair to 32 units. 2. Gram-positive cocci urinary tract infection, may be Enterococcus again. It is hard to tell if she is symptomatic because she has got severe dementia at baseline. We will follow up on her urine culture results and see how things go from there. We may need to initiate antibiotics. DISPOSITION: Pending her clinical status. cc: Zachery Bill MD
[2018-06-01] MEDS: LIPITOR PO SCH (21:11)
[2018-06-02] MEDS: HUMULIN R (PARKWAY) SUBQ SCH ×4 (06:16→21:25)
[2018-06-02] MEDS: ASPIRIN PO SCH (10:25)
[2018-06-02] MEDS: VIMPAT PO SCH ×3 (10:25→21:38)
[2018-06-02] MEDS: COLACE PO SCH (10:25)
[2018-06-02] MEDS: NORVASC PO SCH (10:25)
[2018-06-02] MEDS: PRINIVIL PO SCH ×3 (10:25→21:38)
[2018-06-02] MEDS: JANUVIA PO SCH (10:25)
[2018-06-02] MEDS: SEROQUEL PO SCH ×3 (10:25→21:38)
[2018-06-02] MEDS: TOPROL XL PO SCH (10:26)
[2018-06-02] MEDS: VICTOZA SUBQ SCH (10:26)
[2018-06-02] MEDS: CULTURELLE FOR KIDS PO SCH ×2 (12:05→16:42)
[2018-06-02] MEDS: AMOXIL PO SCH ×3 (12:05→21:37)
--- NOTE | 2018-06-02 12:33 | PROGRESS NOTE ---
DATE: 06/02/2018 SUBJECTIVE: Patient has no focal complaints. OBJECTIVE: Vital Signs: Blood pressure 141/60, heart rate of 86, respiratory rate of 18, temperature 98.4, 100% on room air. Cardiovascular: Regular rate and rhythm. Pulmonary: Bilateral breath sounds. Clear to auscultation. GI: Soft, nontender, nondistended. Bowel sounds are positive. LABORATORY DATA: Sugars have been 247, 259. No big changes. PROBLEM LIST: 1. Diabetes, really not super well controlled, but I have titrated up a little bit on her Lantus. I am going to bump that up a little bit more on 34 units. Disposition pending guardianship. 2. Hypertension is stable. Continue current medications. 3. Enterococcus urinary tract infection. We will continue treatment and follow closely. At this point, it is unclear if this is a colonizer. She has not had fever, not entirely sure why we checked urine culture, but it is because of hyperglycemia, which is certainly a concern. It is difficult to use the new traditional criteria of symptoms in this patient because she is severely demented. She is not nonverbal, but I am not sure she would be able to really guide us very well. We are going to go ahead and treat her with amoxicillin 500 q.8. We may even do it for 10 days just to assist with trying to get this under control and follow. DISPOSITION: Pending her clinical status. cc: Zachery Bill MD
[2018-06-02] MEDS: MIRALAX PO PRN (15:13)
[2018-06-02] MEDS: BASAGLAR SUBQ SCH (16:42)
[2018-06-02] MEDS: LIPITOR PO SCH ×2 (21:26→21:39)
[2018-06-03] MEDS: AMOXIL PO SCH ×3 (05:04→21:18)
[2018-06-03] MEDS: HUMULIN R (PARKWAY) SUBQ SCH ×4 (06:58→21:16)
[2018-06-03] MEDS: CULTURELLE FOR KIDS PO SCH ×3 (08:25→17:01)
[2018-06-03] MEDS: JANUVIA PO SCH (08:27)
[2018-06-03] MEDS: SEROQUEL PO SCH ×2 (08:27→21:18)
[2018-06-03] MEDS: PRINIVIL PO SCH ×2 (08:27→21:18)
[2018-06-03] MEDS: VIMPAT PO SCH ×2 (08:27→21:17)
[2018-06-03] MEDS: TOPROL XL PO SCH (08:27)
[2018-06-03] MEDS: COLACE PO SCH (08:27)
[2018-06-03] MEDS: NORVASC PO SCH (08:28)
[2018-06-03] MEDS: VICTOZA SUBQ SCH (08:28)
[2018-06-03] MEDS: ASPIRIN PO SCH (08:28)
--- NOTE | 2018-06-03 14:52 | PROGRESS NOTE ---
DATE: 06/03/2016 Today is her birthday. OBJECTIVE: Vital Signs: Blood pressure is 174/83, heart rate of 80, respiratory rate 18, temperature 98.2, 100% on room air. Cardiovascular: Regular rate and rhythm. Pulmonary: Bilateral breath sounds. Clear to auscultation. GI: Soft, nontender, nondistended. Bowel sounds are positive. LABORATORY DATA: None. PROBLEM LIST: 1. Diabetes. Blood sugars are doing okay. She had another episode where she bottomed out this evening, 97, not terribly low, but since that time has been lower. We will leave her blood sugars where they are at this point. 2. Enterococcal urinary tract infection. Unclear that she is particularly symptomatic, but with her severe dementia, hyperglycemia, we are going to go ahead and treat. She is on amoxicillin. We will do that for 7 days and then consider re-evaluation. 3. Hypertension. We will continue her regular medications. She is on amlodipine, lisinopril, metoprolol. The only other thing I would consider adding would be possibly hydralazine at this point. We will continue to monitor. We have titrated up on her medications previously and then she has bottomed out so I have to be a little concerned about that. DISPOSITION: Still pending guardianship. We will continue to follow closely. cc: Zachery Bill MD
[2018-06-03] MEDS: BASAGLAR SUBQ SCH (17:00)
[2018-06-03] MEDS: LIPITOR PO SCH (21:18)
[2018-06-04] MEDS: AMOXIL PO SCH ×3 (05:29→21:40)
[2018-06-04] MEDS: HUMULIN R (PARKWAY) SUBQ SCH ×3 (06:03→15:53)
[2018-06-04] MEDS: VIMPAT PO SCH ×2 (09:07→21:39)
[2018-06-04] MEDS: TOPROL XL PO SCH (09:07)
[2018-06-04] MEDS: ASPIRIN PO SCH (09:07)
[2018-06-04] MEDS: SEROQUEL PO SCH ×2 (09:07→21:40)
[2018-06-04] MEDS: COLACE PO SCH (09:08)
[2018-06-04] MEDS: CULTURELLE FOR KIDS PO SCH ×3 (09:08→17:52)
[2018-06-04] MEDS: JANUVIA PO SCH (09:08)
[2018-06-04] MEDS: PRINIVIL PO SCH ×2 (09:08→21:40)
[2018-06-04] MEDS: VICTOZA SUBQ SCH (09:09)
[2018-06-04] MEDS: NORVASC PO SCH (09:21)
--- NOTE | 2018-06-04 10:28 | PROGRESS NOTE ---
DATE: 06/04/2018 SUBJECTIVE: The patient is sitting up in bed. She states "I am feeling alright for an old lady." OBJECTIVE: VITAL SIGNS: Temperature 97.3 degrees Fahrenheit, pulse 84, respirations 18, blood pressure 135/89. Saturating 100% on room air. GENERAL: This is a 89-year-old, -Citizen Of [place] female, sitting up in the bed. HEENT: Normocephalic and atraumatic. Normal ENT inspection. Oropharynx and nares are clear. Eyes: Pupils are equal, round and reactive to light and accommodation. Extraocular movements are intact. LUNGS: Clear bilaterally to auscultation. Equal expansion and chest wall movement noted. HEART: Regular rate and rhythm. No murmur, rub or gallop. ABDOMEN: Soft, nontender, nondistended. Bowel sounds are present x4 quadrants. NEUROLOGIC: Cranial nerves II-XII appear grossly intact. LABS: No new labs today. ASSESSMENT: 1. Diabetes. Stable on current medication regimen. It does not appear that she had any extremely low hypoglycemic episodes. It is noted around midnight she was at 97 but since that time has been in the 200-300s, so we will continue that medication regimen. 2. Enterococcal urinary tract infection. We will continue her p.o. antibiotics. 3. Hypertension. We will continue her current medication regimen and monitor. It seems to be improved on her current as her current blood pressure is 135/89. DISPOSITION: Still pending guardianship and we will continue to follow closely. Dictated by EDDIE Vicente for Ventura Pleitez MD cc: EDDIE Vicente MD
[2018-06-04] MEDS: BASAGLAR SUBQ SCH (17:50)
[2018-06-04] MEDS: LIPITOR PO SCH (21:40)
[2018-06-05] MEDS: HUMULIN R (PARKWAY) SUBQ SCH ×5 (01:10→23:13)
[2018-06-05] MEDS: AMOXIL PO SCH ×3 (05:20→23:17)
[2018-06-05] MEDS: PRINIVIL PO SCH ×2 (09:21→23:00)
[2018-06-05] MEDS: JANUVIA PO SCH (09:21)
[2018-06-05] MEDS: VIMPAT PO SCH ×2 (09:21→23:17)
[2018-06-05] MEDS: COLACE PO SCH (09:21)
[2018-06-05] MEDS: ASPIRIN PO SCH (09:22)
[2018-06-05] MEDS: CULTURELLE FOR KIDS PO SCH ×3 (09:22→17:31)
[2018-06-05] MEDS: NORVASC PO SCH (09:22)
[2018-06-05] MEDS: VICTOZA SUBQ SCH (09:22)
[2018-06-05] MEDS: SEROQUEL PO SCH ×2 (09:22→23:17)
[2018-06-05] MEDS: TOPROL XL PO SCH (09:22)
--- NOTE | 2018-06-05 11:23 | PROGRESS NOTE ---
DATE: 06/05/2018 SUBJECTIVE: The patient is resting quietly in bed. No complaints voiced. OBJECTIVE: Vital Signs: Show a temperature of 97.9 degrees, pulse 81, respirations 18, blood pressure 137/67, saturating 100% on room air. HEENT: Normocephalic, atraumatic. Normal ENT inspection. Oropharynx and nares are clear. Eyes: Pupils are equal, round, reactive to light and accommodation. Extraocular movements are intact. Lungs: Clear to auscultation bilaterally with equal lung expansion and chest wall movement. Heart: Regular rate and rhythm. No murmurs, rubs, or gallops. Abdomen: Soft, nontender, nondistended. Bowel sounds are present x4 quadrants. Neurological: The cranial nerves 2 through 12 appear grossly intact. LABORATORY DATA: No new labs today. ASSESSMENT AND PLAN: 1. Diabetes. Remains stable on current medication regimen. Blood sugars are actually improving, down to 136 this morning. We will continue her current medication regimen. 2. Enterococcal urinary tract infection. She continues her oral antibiotics. 3. Hypertension. We will continue her current medication regimen and follow. 4. Disposition. Still pending guardianship and will continue to follow closely. Dictated by EDDIE Vicente for Ventura Pleitez MD cc: EDDIE Vicente MD
[2018-06-05] MEDS: BASAGLAR SUBQ SCH (16:22)
[2018-06-05] MEDS: LIPITOR PO SCH (23:17)
[2018-06-06] MEDS: AMOXIL PO SCH ×3 (04:41→22:51)
[2018-06-06] MEDS: HUMULIN R (PARKWAY) SUBQ SCH ×5 (06:26→22:13)
[2018-06-06] MEDS: VIMPAT PO SCH ×2 (09:58→22:52)
[2018-06-06] MEDS: COLACE PO SCH (09:58)
[2018-06-06] MEDS: TOPROL XL PO SCH (09:58)
[2018-06-06] MEDS: NORVASC PO SCH (09:58)
[2018-06-06] MEDS: CULTURELLE FOR KIDS PO SCH ×3 (09:58→16:58)
[2018-06-06] MEDS: SEROQUEL PO SCH ×2 (09:59→22:52)
[2018-06-06] MEDS: ASPIRIN PO SCH (09:59)
[2018-06-06] MEDS: JANUVIA PO SCH (09:59)
[2018-06-06] MEDS: PRINIVIL PO SCH ×2 (10:00→22:52)
[2018-06-06] MEDS: VICTOZA SUBQ SCH (10:00)
--- NOTE | 2018-06-06 13:20 | PROGRESS NOTE ---
DATE: 06/06/2018 SUBJECTIVE: Patient currently is in no distress. She is in her usual state in baseline. Her vital signs are stable with blood pressure 141/60. PLAN: We will continue to follow and treat as needed. cc: Ricky Daley MD
[2018-06-06] MEDS: BASAGLAR SUBQ SCH ×2 (16:58→18:53)
[2018-06-06] MEDS: LIPITOR PO SCH (22:51)
[2018-06-07] MEDS: AMOXIL PO SCH ×3 (04:25→23:06)
[2018-06-07] MEDS: HUMULIN R (PARKWAY) SUBQ SCH ×3 (07:09→17:01)
[2018-06-07] MEDS: CULTURELLE FOR KIDS PO SCH ×3 (10:28→17:02)
[2018-06-07] MEDS: SEROQUEL PO SCH ×2 (10:28→23:07)
[2018-06-07] MEDS: ASPIRIN PO SCH (10:28)
[2018-06-07] MEDS: VIMPAT PO SCH ×2 (10:28→23:07)
[2018-06-07] MEDS: TOPROL XL PO SCH (10:29)
[2018-06-07] MEDS: JANUVIA PO SCH (10:29)
[2018-06-07] MEDS: COLACE PO SCH (10:29)
[2018-06-07] MEDS: PRINIVIL PO SCH ×2 (10:29→23:07)
[2018-06-07] MEDS: VICTOZA SUBQ SCH (10:30)
[2018-06-07] MEDS: NORVASC PO SCH (11:01)
--- NOTE | 2018-06-07 14:22 | PROGRESS NOTE ---
DATE: 06/07/2018 SUBJECTIVE: Patient has no new complaints. OBJECTIVE: Vital Signs: Reviewed and stable. Exam: Unchanged physical exam. PLAN: Wwe will continue patient in the hospital until suitable arrangements can be made. We will continue to follow her blood sugars, blood pressure and further orders as needed. cc: Ricky Daley MD
[2018-06-07] MEDS: BASAGLAR SUBQ SCH (17:02)
[2018-06-07] MEDS: LIPITOR PO SCH (23:06)
[2018-06-08] MEDS: HUMULIN R (PARKWAY) SUBQ SCH ×5 (01:28→20:14)
[2018-06-08] MEDS: AMOXIL PO SCH ×3 (05:28→23:46)
[2018-06-08] MEDS: NORVASC PO SCH (09:55)
[2018-06-08] MEDS: VICTOZA SUBQ SCH (09:55)
[2018-06-08] MEDS: SEROQUEL PO SCH ×2 (09:55→23:47)
[2018-06-08] MEDS: CULTURELLE FOR KIDS PO SCH ×3 (09:55→16:53)
[2018-06-08] MEDS: VIMPAT PO SCH ×2 (09:55→23:47)
[2018-06-08] MEDS: TOPROL XL PO SCH (09:56)
[2018-06-08] MEDS: ASPIRIN PO SCH (09:56)
[2018-06-08] MEDS: JANUVIA PO SCH (09:56)
[2018-06-08] MEDS: COLACE PO SCH (09:56)
[2018-06-08] MEDS: PRINIVIL PO SCH ×2 (09:56→23:46)
--- NOTE | 2018-06-08 12:50 | PROGRESS NOTE ---
DATE: 06/08/2018 SUBJECTIVE: Patient seen and examined. No change. PHYSICAL EXAMINATION: Vital Signs: Reviewed and stable. Blood pressure is still elevated, but stable at 147. Blood sugar is still elevated, but stable between 100s and 250. PLAN: We will continue to follow and await transfer to final residence. cc: Ricky Daley MD
[2018-06-08] MEDS: BASAGLAR SUBQ SCH (16:50)
[2018-06-08] MEDS: LIPITOR PO SCH (23:46)
[2018-06-09] MEDS: AMOXIL PO SCH (04:31)
[2018-06-09] MEDS: HUMULIN R (PARKWAY) SUBQ SCH ×4 (06:02→23:31)
[2018-06-09] MEDS: JANUVIA PO SCH (09:43)
[2018-06-09] MEDS: ASPIRIN PO SCH (09:43)
[2018-06-09] MEDS: SEROQUEL PO SCH ×2 (09:43→20:47)
[2018-06-09] MEDS: TOPROL XL PO SCH (09:43)
[2018-06-09] MEDS: VIMPAT PO SCH ×2 (09:43→20:48)
[2018-06-09] MEDS: CULTURELLE FOR KIDS PO SCH ×3 (09:44→18:58)
[2018-06-09] MEDS: COLACE PO SCH (09:44)
[2018-06-09] MEDS: NORVASC PO SCH (09:44)
[2018-06-09] MEDS: VICTOZA SUBQ SCH (09:44)
[2018-06-09] MEDS: PRINIVIL PO SCH ×2 (09:44→20:48)
--- NOTE | 2018-06-09 13:48 | PROGRESS NOTE ---
DATE: 06/09/2018 SUBJECTIVE: Patient has no complaints. Physical is unchanged. Her blood pressure is actually relatively good today at 129/60. Physical exam is unchanged. We will continue to follow, treat as needed. Hopefully eventually she can transition to long- term care. cc: Ricky Daley MD
[2018-06-09] MEDS: BASAGLAR SUBQ SCH (18:58)
[2018-06-09] MEDS: LIPITOR PO SCH (20:48)
[2018-06-10] MEDS: HUMULIN R (PARKWAY) SUBQ SCH ×5 (06:34→23:53)
[2018-06-10] MEDS: CULTURELLE FOR KIDS PO SCH ×3 (08:31→20:21)
[2018-06-10] MEDS: COLACE PO SCH (08:31)
[2018-06-10] MEDS: VIMPAT PO SCH ×2 (08:31→20:21)
[2018-06-10] MEDS: SEROQUEL PO SCH ×2 (08:31→20:22)
[2018-06-10] MEDS: ASPIRIN PO SCH (08:31)
[2018-06-10] MEDS: PRINIVIL PO SCH ×2 (08:31→20:22)
[2018-06-10] MEDS: VICTOZA SUBQ SCH (08:32)
[2018-06-10] MEDS: NORVASC PO SCH (08:32)
[2018-06-10] MEDS: JANUVIA PO SCH (08:32)
[2018-06-10] MEDS: TOPROL XL PO SCH (08:32)
--- NOTE | 2018-06-10 13:32 | PROGRESS NOTE ---
DATE: 06/10/2018 SUBJECTIVE: Patient currently is in no distress. OBJECTIVE: Physical is unchanged. Blood pressure is elevated today at 162/95. PLAN: We will continue to watch patient and treat as needed. Hopefully, she can transition to long-term care. cc: Ricky Daley MD
[2018-06-10] MEDS: BASAGLAR SUBQ SCH (16:45)
[2018-06-10] MEDS: LIPITOR PO SCH (20:22)
[2018-06-11] MEDS: VICTOZA SUBQ SCH (10:21)
[2018-06-11] MEDS: CULTURELLE FOR KIDS PO SCH ×3 (10:24→16:27)
[2018-06-11] MEDS: JANUVIA PO SCH (10:25)
[2018-06-11] MEDS: TOPROL XL PO SCH (10:25)
[2018-06-11] MEDS: ASPIRIN PO SCH (10:25)
[2018-06-11] MEDS: SEROQUEL PO SCH ×2 (10:25→20:12)
[2018-06-11] MEDS: COLACE PO SCH (10:25)
[2018-06-11] MEDS: PRINIVIL PO SCH ×2 (10:26→20:12)
[2018-06-11] MEDS: NORVASC PO SCH (10:26)
[2018-06-11] MEDS: VIMPAT PO SCH ×2 (10:33→20:12)
[2018-06-11] MEDS: HUMULIN R (PARKWAY) SUBQ SCH ×3 (12:26→20:11)
--- NOTE | 2018-06-11 14:05 | PROGRESS NOTE ---
DATE: 06/11/2018 SUBJECTIVE: The patient has no complaints. She ate very well yesterday. OBJECTIVE: Vital Signs: Reviewed and stable. Blood pressure is elevated today at 180. Blood sugars are elevated as well. Otherwise, the physical exam is unchanged. PLAN: Will continue patient in the hospital. Continue symptomatic treatment and comfort care measures. cc: Ricky Daley MD
[2018-06-11] MEDS: BASAGLAR SUBQ SCH (16:22)
[2018-06-11] MEDS: LIPITOR PO SCH (20:11)
[2018-06-12] MEDS: HUMULIN R (PARKWAY) SUBQ SCH ×5 (06:01→20:18)
[2018-06-12] MEDS: JANUVIA PO SCH (09:20)
[2018-06-12] MEDS: NORVASC PO SCH (09:20)
[2018-06-12] MEDS: VIMPAT PO SCH ×2 (09:20→20:17)
[2018-06-12] MEDS: COLACE PO SCH (09:20)
[2018-06-12] MEDS: SEROQUEL PO SCH ×2 (09:20→20:17)
[2018-06-12] MEDS: ASPIRIN PO SCH (09:20)
[2018-06-12] MEDS: PRINIVIL PO SCH ×2 (09:20→20:17)
[2018-06-12] MEDS: TOPROL XL PO SCH (09:20)
[2018-06-12] MEDS: VICTOZA SUBQ SCH (09:21)
[2018-06-12] MEDS: CULTURELLE FOR KIDS PO SCH ×3 (09:21→16:47)
--- NOTE | 2018-06-12 09:41 | PROGRESS NOTE ---
DATE: 06/12/2018 SUBJECTIVE: Patient with no new complaints. OBJECTIVE: Vital Signs: Reviewed. Blood pressure is elevated 160/88. Blood sugars ranged from 86 to 334, depends on how much she eats. Physical exam otherwise unchanged. ASSESSMENT AND PLAN: We will continue to follow her blood sugars. Unfortunately, due to her very sporadic eating, we really cannot get much tighter, as her blood sugars will frequently drop below 100 and sometimes down to the 50s. She has no current symptoms of urinary tract infection. We will continue to monitor her blood pressure, hopefully, to long-term placement soon. cc: Ricky Daley MD
[2018-06-12] MEDS: BASAGLAR SUBQ SCH (16:47)
[2018-06-12] MEDS: LIPITOR PO SCH (20:17)
[2018-06-13] MEDS: HUMULIN R (PARKWAY) SUBQ SCH ×4 (06:14→22:13)
[2018-06-13] MEDS: ASPIRIN PO SCH (10:44)
[2018-06-13] MEDS: VIMPAT PO SCH ×2 (10:44→22:08)
[2018-06-13] MEDS: NORVASC PO SCH (10:45)
[2018-06-13] MEDS: COLACE PO SCH (10:45)
[2018-06-13] MEDS: CULTURELLE FOR KIDS PO SCH ×3 (10:45→18:26)
[2018-06-13] MEDS: VICTOZA SUBQ SCH (10:45)
[2018-06-13] MEDS: SEROQUEL PO SCH ×2 (10:45→22:08)
[2018-06-13] MEDS: JANUVIA PO SCH (10:45)
[2018-06-13] MEDS: PRINIVIL PO SCH ×2 (10:46→22:08)
[2018-06-13] MEDS: TOPROL XL PO SCH (10:46)
[2018-06-13] MEDS: BASAGLAR SUBQ SCH (18:26)
--- NOTE | 2018-06-13 21:06 | PROGRESS NOTE ---
DATE: 06/13/2018 SUBJECTIVE: No new complaints. The patient actually is eating breakfast this morning . OBJECTIVE: Vital Signs: Reviewed. Blood pressure elevated at 169/88. Otherwise stable. Physical exam is unchanged. ASSESSMENT: 1. Diabetes. 2. Adult failure to thrive. 3. Hypertension. PLAN: Will continue current medications. Continue to follow. No other changes are needed. cc: Ricky Daley MD
[2018-06-13] MEDS: LIPITOR PO SCH (22:09)
[2018-06-14] MEDS: HUMULIN R (PARKWAY) SUBQ SCH ×4 (06:40→22:03)
[2018-06-14] MEDS: TOPROL XL PO SCH (10:07)
[2018-06-14] MEDS: PRINIVIL PO SCH ×2 (10:07→22:01)
[2018-06-14] MEDS: SEROQUEL PO SCH ×2 (10:08→22:01)
[2018-06-14] MEDS: NORVASC PO SCH (10:08)
[2018-06-14] MEDS: CULTURELLE FOR KIDS PO SCH ×3 (10:08→16:55)
[2018-06-14] MEDS: COLACE PO SCH (10:08)
[2018-06-14] MEDS: VIMPAT PO SCH ×2 (10:08→22:01)
[2018-06-14] MEDS: ASPIRIN PO SCH (10:08)
[2018-06-14] MEDS: JANUVIA PO SCH (10:09)
[2018-06-14] MEDS: VICTOZA SUBQ SCH (10:09)
--- NOTE | 2018-06-14 17:46 | PROGRESS NOTE ---
DATE: 06/14/2018 SUBJECTIVE: Patient has no complaints. OBJECTIVE: Vital Signs: Reviewed. Blood pressure is 134/80, blood sugars 200 to 400. Physical exam is unchanged. ASSESSMENT: 1. Diabetes. We will increase her Lantus 35units as her blood sugars most recently have been elevated. May consider changing her Lantus to twice a day and adjust depending on her dietary intake. 2. Hypertension. 3. Others. cc: Ricky Daley MD MTDD
[2018-06-14] MEDS: LIPITOR PO SCH (22:01)
[2018-06-15] MEDS: HUMULIN R (PARKWAY) SUBQ SCH ×4 (06:28→23:59)
[2018-06-15] MEDS: JANUVIA PO SCH (09:36)
[2018-06-15] MEDS: NORVASC PO SCH (09:36)
[2018-06-15] MEDS: SEROQUEL PO SCH ×2 (09:36→23:59)
[2018-06-15] MEDS: ASPIRIN PO SCH (09:36)
[2018-06-15] MEDS: COLACE PO SCH (09:36)
[2018-06-15] MEDS: PRINIVIL PO SCH ×2 (09:36→23:59)
[2018-06-15] MEDS: VICTOZA SUBQ SCH (09:36)
[2018-06-15] MEDS: VIMPAT PO SCH ×2 (09:36→23:58)
[2018-06-15] MEDS: CULTURELLE FOR KIDS PO SCH ×3 (09:36→17:31)
[2018-06-15] MEDS: TOPROL XL PO SCH (09:36)
--- NOTE | 2018-06-15 12:53 | PROGRESS NOTE ---
DATE: 06/15/2018 SUBJECTIVE: Patient has no focal complaints. OBJECTIVE: Blood pressure is 156/77, heart rate of 81, respiratory rate 18, temperature 97.4 degrees, 100% on room air.Cardiovascular: Regular rate and rhythm. Pulmonary: Bilateral breath sounds. Clear to auscultation. GI: Soft, nontender, nondistended. Bowel sounds are positive. LABORATORY DATA: 223, 365, 437. 1. Diabetes. I agree with Dr. Daley. We are going to switch her to b.i.d. glargine, start off at 18 b.i.d. that will be kind of 36 units total. We may need to double that up. She got 36 units today so I am going to start it tomorrow. I think I am just going to go to 20 maybe that will prevent her from bottoming out. 2. History of urinary tract infection. She seems to be doing better. 3. Severe dementia with unable to manage herself. We will continue treatment and follow. Appears to be well controlled. 4. Disposition. We are still awaiting court guardianship. I am not sure what other holds are at this point but that is the current process. cc: Zachery Bill MD
[2018-06-15] MEDS: LIPITOR PO SCH (23:59)
[2018-06-16] MEDS: HUMULIN R (PARKWAY) SUBQ SCH ×4 (06:38→23:07)
[2018-06-16] MEDS: VIMPAT PO SCH ×3 (10:38→23:06)
[2018-06-16] MEDS: CULTURELLE FOR KIDS PO SCH ×3 (10:39→18:57)
[2018-06-16] MEDS: SEROQUEL PO SCH ×3 (10:39→23:07)
[2018-06-16] MEDS: JANUVIA PO SCH (10:39)
[2018-06-16] MEDS: TOPROL XL PO SCH (10:39)
[2018-06-16] MEDS: COLACE PO SCH (10:40)
[2018-06-16] MEDS: ASPIRIN PO SCH (10:40)
[2018-06-16] MEDS: VICTOZA SUBQ SCH (10:40)
[2018-06-16] MEDS: NORVASC PO SCH (10:40)
[2018-06-16] MEDS: PRINIVIL PO SCH ×3 (10:40→23:07)
--- NOTE | 2018-06-16 15:07 | PROGRESS NOTE ---
DATE: 06/16/2018 SUBJECTIVE: The patient has no focal complaints. OBJECTIVE: Blood pressure is 119/97, heart rate 79, respiratory rate 18, temperature 97.9, 100% sat on room air.Cardiovascular: Regular rate and rhythm. Pulmonary: Bilateral breath sounds. Clear to auscultation. Gastrointestinal: Soft, nontender, nondistended. Bowel sounds are positive. LABORATORY DATA: 1. Her sugars have been much higher, 300s to 400s. Problem uncontrolled diabetes was stable currently with b.i.d. glargine. I have bumped her up to 30 b.i.d. which is going to be 40 units. I think I am going to give her 25 units. I just do not want her to bottom out. 2. Dementia appears to be stable at her baseline. 3. Hypertension we will continue regular medications and follow. DISPOSITION: She is still waiting state appointed guardianship and we will continue to follow. cc: Zachery Bill MD
[2018-06-16] MEDS: LIPITOR PO SCH ×2 (19:49→23:07)
[2018-06-16] MEDS: BASAGLAR SUBQ SCH (23:06)
[2018-06-17] MEDS: SEROQUEL PO SCH ×2 (10:02→21:57)
[2018-06-17] MEDS: VIMPAT PO SCH ×2 (10:02→21:57)
[2018-06-17] MEDS: ASPIRIN PO SCH (10:03)
[2018-06-17] MEDS: NORVASC PO SCH (10:04)
[2018-06-17] MEDS: JANUVIA PO SCH (10:04)
[2018-06-17] MEDS: COLACE PO SCH (10:04)
[2018-06-17] MEDS: PRINIVIL PO SCH ×2 (10:04→21:57)
[2018-06-17] MEDS: VICTOZA SUBQ SCH (10:05)
[2018-06-17] MEDS: CULTURELLE FOR KIDS PO SCH ×3 (10:05→18:13)
[2018-06-17] MEDS: BASAGLAR SUBQ SCH ×2 (10:05→18:14)
[2018-06-17] MEDS: HUMULIN R (PARKWAY) SUBQ SCH ×5 (11:07→21:57)
[2018-06-17] MEDS: TOPROL XL PO SCH (11:08)
[2018-06-17 17:25] LABS: ESTIMATED GFR > 60
[2018-06-17 18:17] LABS: AGAP 11; CHLORIDE 105 mmol/L (98-107); POTASSIUM 3.4 mmol/L (3.5-5.1); SODIUM 140 mmol/L (136-145); TCO2 23 mmol/L (25-35)
[2018-06-17 18:18] LABS: BUN 19 mg/dL (8-22); COSMO 299; CREATININE 0.7 mg/dL (0.5-0.9)
[2018-06-17 18:20] LABS: GLUCOSE 402 mg/dL (70-104)
--- NOTE | 2018-06-17 20:08 | PROGRESS NOTE ---
DATE: 06/17/2018 SUBJECTIVE: Patient has no focal complaints. OBJECTIVE: Blood pressure is 156/90, heart rate of 78, respiratory rate of 16, temp was 98.2. Cardiovascular: Regular rate and rhythm. Pulmonary: Bilateral breath sounds. Clear to auscultation. Gastrointestinal: Soft, nontender, nondistended. Bowel sounds are positive. Extremity: No clubbing or cyanosis. Lymphatic: No peripheral edema. Neurologic: Nonfocal. ASSESSMENT: 1. Her sugars have been fairly high. We have been keeping her on this. We have adjusted her Lantus, which I still think she is not under great control. We will continue to see how she does. We will initiate her Lantus and see how she does. 2. Dementia is stable currently on her current medications. 3. Seizure disorder, appears to be also stable on her current medications. We will continue to follow. cc: Zachery Bill MD
[2018-06-17] MEDS: LIPITOR PO SCH (21:57)
[2018-06-18] MEDS: HUMULIN R (PARKWAY) SUBQ SCH ×4 (06:01→22:10)
[2018-06-18] MEDS: NORVASC PO SCH (09:58)
[2018-06-18] MEDS: TOPROL XL PO SCH (09:58)
[2018-06-18] MEDS: ASPIRIN PO SCH (09:58)
[2018-06-18] MEDS: VIMPAT PO SCH ×2 (09:58→22:06)
[2018-06-18] MEDS: CULTURELLE FOR KIDS PO SCH ×3 (09:58→17:46)
[2018-06-18] MEDS: COLACE PO SCH (09:58)
[2018-06-18] MEDS: JANUVIA PO SCH (09:58)
[2018-06-18] MEDS: PRINIVIL PO SCH ×2 (09:58→22:07)
[2018-06-18] MEDS: SEROQUEL PO SCH ×2 (09:58→22:07)
[2018-06-18] MEDS: VICTOZA SUBQ SCH (09:59)
[2018-06-18] MEDS: BASAGLAR SUBQ SCH ×2 (10:23→22:10)
[2018-06-18] MEDS: TYLENOL PO PRN (12:39)
--- NOTE | 2018-06-18 15:35 | PROGRESS NOTE ---
DATE: 06/18/2018 SUBJECTIVE: Patient has no focal complaints. OBJECTIVE: Vital Signs: Blood pressure is 131/98, heart rate of 92, respiratory rate 18, temperature 99.5 degrees, satting 98% on room air. Cardiovascular: Regular rate and rhythm. Pulmonary: Bilateral breath sounds. Clear to auscultation. GI: Soft, nontender, nondistended. Bowel sounds are positive. LABORATORY DATA: Sugars have been up and down. I think the lowest has been in the 60s, but we gave her a lot of medications yesterday. She actually was 68; that was 2 days ago, though. In any case, I am just going to leave her on her current dose of Lantus and adjust accordingly. She is on 30 b.i.d. She previously had been on once a day, I think she was around 45-50 units, so this is an increase in total insulin amount. ASSESSMENT AND PLAN: 1. Dementia, controlled on current medications. 2. Hypertension, stable on current medications. DISPOSITION: Awaiting final disposition from power of gas plant operator which is designated as a mack of the [facility]. We will continue to follow and then hopefully long-term placement subsequently. cc: Zachery Bill MD
[2018-06-18] MEDS: LIPITOR PO SCH (22:07)
[2018-06-19] MEDS: HUMULIN R (PARKWAY) SUBQ SCH ×3 (06:13→16:19)
[2018-06-19] MEDS: JANUVIA PO SCH (10:18)
[2018-06-19] MEDS: PRINIVIL PO SCH ×2 (10:18→21:28)
[2018-06-19] MEDS: VICTOZA SUBQ SCH (10:18)
[2018-06-19] MEDS: NORVASC PO SCH (10:19)
[2018-06-19] MEDS: ASPIRIN PO SCH (10:19)
[2018-06-19] MEDS: TOPROL XL PO SCH (10:19)
[2018-06-19] MEDS: CULTURELLE FOR KIDS PO SCH ×3 (10:19→16:26)
[2018-06-19] MEDS: VIMPAT PO SCH ×2 (10:19→21:27)
[2018-06-19] MEDS: COLACE PO SCH (10:19)
[2018-06-19] MEDS: SEROQUEL PO SCH ×2 (10:19→21:28)
[2018-06-19] MEDS: BASAGLAR SUBQ SCH (10:23)
--- NOTE | 2018-06-19 21:20 | PROGRESS NOTE ---
DATE: 06/19/2018 SUBJECTIVE: Patient has no focal complaints, she is upside down in her bed trying to get out but she is awake, alert, I would say pleasantly confused. OBJECTIVE: Blood pressure 125/94, heart rate 78, respiratory 18, temperature 97.6 degrees, 94% on room air.Cardiovascular: Regular rate and rhythm. Pulmonary: Bilateral breath sounds. Clear to auscultation. GI: Soft, nontender, nondistended. Bowel sounds are positive. LABORATORY DATA: Sugars have been better. PROBLEM LIST: 1. Type 2 diabetes actually controlled on current treatments. We will continue her Lantus at current dose. She seems to be doing okay on it. 2. Dementia. She is stable on her current medication. Seems to be stable. 3. Hypertension also stable with her current medications. 4. Disposition. Still awaiting guardianship and then permanent placement. We will continue to follow. cc: Zachery Bill MD
[2018-06-19] MEDS: LIPITOR PO SCH (21:28)
[2018-06-20] MEDS: BASAGLAR SUBQ SCH ×3 (00:07→21:59)
[2018-06-20] MEDS: HUMULIN R (PARKWAY) SUBQ SCH ×5 (00:08→21:59)
[2018-06-20] MEDS: CULTURELLE FOR KIDS PO SCH ×3 (08:38→16:54)
[2018-06-20] MEDS: ASPIRIN PO SCH (08:38)
[2018-06-20] MEDS: JANUVIA PO SCH (08:38)
[2018-06-20] MEDS: NORVASC PO SCH (08:38)
[2018-06-20] MEDS: SEROQUEL PO SCH ×2 (08:38→21:58)
[2018-06-20] MEDS: VICTOZA SUBQ SCH (08:38)
[2018-06-20] MEDS: TOPROL XL PO SCH (08:38)
[2018-06-20] MEDS: PRINIVIL PO SCH ×2 (08:38→22:09)
[2018-06-20] MEDS: VIMPAT PO SCH ×2 (08:38→21:57)
[2018-06-20] MEDS: COLACE PO SCH (08:38)
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
[2018-06-20] MEDS: LIPITOR PO SCH (21:58)
[2018-06-21] MEDS: HUMULIN R (PARKWAY) SUBQ SCH ×4 (06:43→21:45)
[2018-06-21] MEDS: PRINIVIL PO SCH ×2 (10:29→21:47)
[2018-06-21] MEDS: JANUVIA PO SCH (10:29)
[2018-06-21] MEDS: TOPROL XL PO SCH (10:29)
[2018-06-21] MEDS: SEROQUEL PO SCH ×2 (10:29→21:43)
[2018-06-21] MEDS: NORVASC PO SCH (10:29)
[2018-06-21] MEDS: VIMPAT PO SCH ×2 (10:29→21:43)
[2018-06-21] MEDS: CULTURELLE FOR KIDS PO SCH ×3 (10:30→17:08)
[2018-06-21] MEDS: VICTOZA SUBQ SCH (10:30)
[2018-06-21] MEDS: COLACE PO SCH (10:30)
[2018-06-21] MEDS: ASPIRIN PO SCH (10:30)
[2018-06-21] MEDS: BASAGLAR SUBQ SCH ×2 (10:30→21:44)
--- NOTE | 2018-06-21 12:11 | PROGRESS NOTE ---
DATE: 06/21/2018 SUBJECTIVE: Patient has no focal complaints. OBJECTIVE: Vital signs: Blood pressure was 137/89, heart rate of 90, respiratory rate 18, temperature 97.9 degrees. Cardiovascular: Regular rate and rhythm. Pulmonary: Bilateral breath sounds. Clear to auscultation. GI: Soft, nontender, nondistended. Bowel sounds are positive. Extremities: No clubbing or cyanosis. Lymphatic: No peripheral edema. Neurological: Nonfocal. LABORATORY DATA: No big issues except her sugar has jumped up to 500. ASSESSMENT AND PLAN: 1. Diabetes, still poorly controlled. I bumped up her Lantus to 35 b.i.d. She is on a total of 70 units a day. 2. Hypertension. Patient is stable currently. We will continue to follow closely. 3. Dementia, delirium, stable. 4. Disposition. We are still waiting on approval for guardianship. I really do not know where we are with that process, but hopefully that will work out soon. cc: Zachery Bill MD
[2018-06-21] MEDS: LIPITOR PO SCH (21:43)
[2018-06-22] MEDS: HUMULIN R (PARKWAY) SUBQ SCH ×5 (06:37→21:58)
[2018-06-22] MEDS: TOPROL XL PO SCH (10:06)
[2018-06-22] MEDS: VIMPAT PO SCH ×2 (10:06→21:56)
[2018-06-22] MEDS: ACTOS PO SCH (10:06)
[2018-06-22] MEDS: SEROQUEL PO SCH ×2 (10:07→21:56)
[2018-06-22] MEDS: JANUVIA PO SCH (10:07)
[2018-06-22] MEDS: NORVASC PO SCH (10:08)
[2018-06-22] MEDS: COLACE PO SCH (10:08)
[2018-06-22] MEDS: PRINIVIL PO SCH ×2 (10:08→21:56)
[2018-06-22] MEDS: BASAGLAR SUBQ SCH ×2 (10:08→21:57)
[2018-06-22] MEDS: VICTOZA SUBQ SCH (10:08)
[2018-06-22] MEDS: CULTURELLE FOR KIDS PO SCH ×3 (10:08→19:22)
[2018-06-22] MEDS: ASPIRIN PO SCH (10:08)
[2018-06-22] MEDS: LIPITOR PO SCH (21:56)
--- NOTE | 2018-06-23 01:22 | PROGRESS NOTE ---
DATE: 06/22/2018 SUBJECTIVE: The patient seen and examined. She has no new complaints. PHYSICAL EXAMINATION: No real new changes. LABS: Blood sugars are elevated at 3.700. ASSESSMENT: Diabetes. We will add Actos to her blood sugar control and see if this helps. cc: Ricky Daley MD
[2018-06-23] MEDS: HUMULIN R (PARKWAY) SUBQ SCH ×4 (07:39→22:41)
[2018-06-23] MEDS: CULTURELLE FOR KIDS PO SCH ×3 (10:34→16:58)
[2018-06-23] MEDS: ASPIRIN PO SCH (10:34)
[2018-06-23] MEDS: NORVASC PO SCH (10:35)
[2018-06-23] MEDS: BASAGLAR SUBQ SCH ×2 (10:35→22:41)
[2018-06-23] MEDS: JANUVIA PO SCH (10:35)
[2018-06-23] MEDS: ACTOS PO SCH (10:35)
[2018-06-23] MEDS: PRINIVIL PO SCH ×2 (10:35→22:41)
[2018-06-23] MEDS: VICTOZA SUBQ SCH (10:35)
[2018-06-23] MEDS: COLACE PO SCH (10:35)
[2018-06-23] MEDS: SEROQUEL PO SCH ×2 (10:35→22:41)
[2018-06-23] MEDS: VIMPAT PO SCH ×2 (10:35→22:42)
[2018-06-23] MEDS: TOPROL XL PO SCH (10:35)
[2018-06-23] MEDS: LIPITOR PO SCH (22:42)
--- NOTE | 2018-06-24 02:03 | PROGRESS NOTE ---
DATE: 06/23/2018 SUBJECTIVE: The patient has no new complaints. OBJECTIVE: Vital Signs: Temperature 97, pulse 83, respiratory 18, BP 154/74. General: The patient is awake. She is in no distress. HEENT: Normocephalic. Cardiovascular: Regular rate. Chest: Clear. ASSESSMENT: 1. Diabetes. It still continues to be very difficult to control her blood sugars as some days she will eat. Yesterday blood sugars were 300s-500s, today her blood sugars have been in the 70s-100 range. 2. Hypertension. 3. Dementia. cc: Ricky Daley MD
[2018-06-24] MEDS: HUMULIN R (PARKWAY) SUBQ SCH ×3 (06:27→19:03)
[2018-06-24] MEDS: COLACE PO SCH (10:41)
[2018-06-24] MEDS: PRINIVIL PO SCH ×2 (10:41→21:19)
[2018-06-24] MEDS: ACTOS PO SCH (10:41)
[2018-06-24] MEDS: ASPIRIN PO SCH (10:41)
[2018-06-24] MEDS: VIMPAT PO SCH ×2 (10:41→21:20)
[2018-06-24] MEDS: JANUVIA PO SCH (10:41)
[2018-06-24] MEDS: SEROQUEL PO SCH ×2 (10:41→21:20)
[2018-06-24] MEDS: TOPROL XL PO SCH (10:41)
[2018-06-24] MEDS: NORVASC PO SCH (10:41)
[2018-06-24] MEDS: CULTURELLE FOR KIDS PO SCH ×3 (10:42→19:04)
[2018-06-24] MEDS: BASAGLAR SUBQ SCH (10:43)
[2018-06-24] MEDS: VICTOZA SUBQ SCH (10:43)
--- NOTE | 2018-06-24 18:19 | PROGRESS NOTE ---
DATE: 06/24/2018 SUBJECTIVE: The patient has no complaints. OBJECTIVE: Vital signs reviewed. Blood pressures are much improved today at 149/60. Blood sugars are anywhere 66 to 130. Physical exam is unchanged. ASSESSMENT: 1. Diabetes continues to be poorly controlled. It depends on her diet. It seems to be better since starting on Actos. Her blood sugars have been lower the past 2 days, but this also has to do with the fact she has not been eating as well. 2. Hypertension. 3. Dementia. PLAN: Will continue the patient in the hospital until such time discharge planning can be completed. cc: Ricky Daley MD
[2018-06-24] MEDS: LIPITOR PO SCH (21:19)
[2018-06-25] MEDS: HUMULIN R (PARKWAY) SUBQ SCH ×5 (04:35→21:09)
[2018-06-25] MEDS: BASAGLAR SUBQ SCH ×3 (05:32→21:08)
[2018-06-25] MEDS: CULTURELLE FOR KIDS PO SCH ×3 (10:04→17:28)
[2018-06-25] MEDS: COLACE PO SCH (10:04)
[2018-06-25] MEDS: JANUVIA PO SCH (10:04)
[2018-06-25] MEDS: ACTOS PO SCH (10:05)
[2018-06-25] MEDS: ASPIRIN PO SCH (10:05)
[2018-06-25] MEDS: VIMPAT PO SCH ×2 (10:05→21:08)
[2018-06-25] MEDS: TOPROL XL PO SCH (10:05)
[2018-06-25] MEDS: PRINIVIL PO SCH ×2 (10:05→21:08)
[2018-06-25] MEDS: SEROQUEL PO SCH ×2 (10:05→21:08)
[2018-06-25] MEDS: NORVASC PO SCH (10:05)
[2018-06-25] MEDS: VICTOZA SUBQ SCH (10:06)
[2018-06-25] MEDS: LIPITOR PO SCH (21:08)
--- NOTE | 2018-06-26 01:10 | PROGRESS NOTE ---
DATE: 06/25/2018 SUBJECTIVE: Patient has no new complaints. OBJECTIVE: Vital Signs: Reviewed and stable. She is in no distress. LABS: Blood sugars have started elevating today at 260 to 310 as she has been eating better. PLAN: We will continue in the hospital. Continue to monitor her blood sugars and we will follow. cc: Ricky Daley MD
[2018-06-26] MEDS: HUMULIN R (PARKWAY) SUBQ SCH ×3 (06:58→21:31)
[2018-06-26] MEDS: BASAGLAR SUBQ SCH ×2 (09:33→21:29)
[2018-06-26] MEDS: SEROQUEL PO SCH ×2 (09:37→21:30)
[2018-06-26] MEDS: JANUVIA PO SCH (09:37)
[2018-06-26] MEDS: TOPROL XL PO SCH (09:37)
[2018-06-26] MEDS: ASPIRIN PO SCH (09:37)
[2018-06-26] MEDS: NORVASC PO SCH (09:37)
[2018-06-26] MEDS: VIMPAT PO SCH ×2 (09:37→21:30)
[2018-06-26] MEDS: CULTURELLE FOR KIDS PO SCH ×3 (09:38→17:07)
[2018-06-26] MEDS: ACTOS PO SCH (09:38)
[2018-06-26] MEDS: PRINIVIL PO SCH ×2 (09:38→21:30)
[2018-06-26] MEDS: COLACE PO SCH (09:38)
[2018-06-26] MEDS: VICTOZA SUBQ SCH (09:39)
[2018-06-26] MEDS: LIPITOR PO SCH (21:30)
[2018-06-27] MEDS: HUMULIN R (PARKWAY) SUBQ SCH ×4 (06:13→22:05)
--- NOTE | 2018-06-27 07:51 | PROGRESS NOTE ---
DATE: 06/26/2018 Patient seen and examined. No change on her physical exam or her mental status currently. Blood sugars have been stable at 126 to 307 today. cc: Ricky Daley MD
[2018-06-27] MEDS: VICTOZA SUBQ SCH (10:23)
[2018-06-27] MEDS: ACTOS PO SCH (10:24)
[2018-06-27] MEDS: CULTURELLE FOR KIDS PO SCH ×3 (10:24→17:57)
[2018-06-27] MEDS: ASPIRIN PO SCH (10:24)
[2018-06-27] MEDS: BASAGLAR SUBQ SCH ×2 (10:24→21:26)
[2018-06-27] MEDS: COLACE PO SCH (10:30)
[2018-06-27] MEDS: SEROQUEL PO SCH ×2 (10:31→21:25)
[2018-06-27] MEDS: JANUVIA PO SCH (10:31)
[2018-06-27] MEDS: PRINIVIL PO SCH ×2 (10:32→21:25)
[2018-06-27] MEDS: VIMPAT PO SCH ×2 (10:32→21:25)
[2018-06-27] MEDS: TOPROL XL PO SCH (10:33)
[2018-06-27] MEDS: NORVASC PO SCH (10:33)
[2018-06-27] MEDS: LIPITOR PO SCH (21:24)
--- NOTE | 2018-06-27 22:08 | PROGRESS NOTE ---
DATE: 06/27/2018 SUBJECTIVE: No new complaints. OBJECTIVE: Vital signs reviewed, blood pressure 144/63. Blood sugars 177 to 349. PLAN: The patient will continue in the hospital until which time final discharge planning can be made. cc: Ricky Daley MD
[2018-06-28] MEDS: HUMULIN R (PARKWAY) SUBQ SCH ×4 (06:21→21:01)
[2018-06-28] MEDS: SEROQUEL PO SCH ×2 (09:49→21:00)
[2018-06-28] MEDS: NORVASC PO SCH (09:49)
[2018-06-28] MEDS: COLACE PO SCH (09:49)
[2018-06-28] MEDS: TOPROL XL PO SCH (09:49)
[2018-06-28] MEDS: ACTOS PO SCH (09:49)
[2018-06-28] MEDS: JANUVIA PO SCH (09:50)
[2018-06-28] MEDS: VIMPAT PO SCH ×2 (09:50→21:00)
[2018-06-28] MEDS: CULTURELLE FOR KIDS PO SCH ×3 (09:50→16:09)
[2018-06-28] MEDS: PRINIVIL PO SCH ×2 (09:50→21:00)
[2018-06-28] MEDS: ASPIRIN PO SCH (09:50)
[2018-06-28] MEDS: VICTOZA SUBQ SCH (09:51)
[2018-06-28] MEDS: BASAGLAR SUBQ SCH ×2 (09:51→21:01)
--- NOTE | 2018-06-28 16:53 | PROGRESS NOTE ---
DATE: 06/28/2018 SUBJECTIVE: Patient is lying in the bed, she does not answer questions if she does not want to. PHYSICAL: Vital Signs: Reviewed, temperature 99.4 degrees, pulse 81, BP is elevated today at 188, blood sugars are elevated today from 130s to 270s. General: Patient is in no current distress she is lying in the bed. CV: Regular rate. Chest: Clear nonlabored. Abdomen: Soft. ASSESSMENT: Diabetes, seems to be tolerating the addition of Actos. Will continue this as well as her insulin and sliding scale insulin as needed. Hopefully patient eventually can transfer to long-term care. cc: Ricky Daley MD
[2018-06-28] MEDS: LIPITOR PO SCH (21:00)
[2018-06-29] MEDS: HUMULIN R (PARKWAY) SUBQ SCH ×4 (06:36→23:01)
[2018-06-29] MEDS: COLACE PO SCH (09:37)
[2018-06-29] MEDS: CULTURELLE FOR KIDS PO SCH ×3 (09:37→16:09)
[2018-06-29] MEDS: ASPIRIN PO SCH (09:37)
[2018-06-29] MEDS: VIMPAT PO SCH ×2 (09:37→21:29)
[2018-06-29] MEDS: JANUVIA PO SCH (09:37)
[2018-06-29] MEDS: NORVASC PO SCH (09:37)
[2018-06-29] MEDS: ACTOS PO SCH (09:38)
[2018-06-29] MEDS: PRINIVIL PO SCH ×2 (09:38→21:30)
[2018-06-29] MEDS: SEROQUEL PO SCH ×2 (09:38→21:30)
[2018-06-29] MEDS: TOPROL XL PO SCH (09:38)
[2018-06-29] MEDS: BASAGLAR SUBQ SCH ×2 (09:38→23:01)
[2018-06-29] MEDS: VICTOZA SUBQ SCH (09:39)
--- NOTE | 2018-06-29 14:54 | PROGRESS NOTE ---
DATE: 06/29/2018 SUBJECTIVE: She is sitting up in bed. No major complaints. She has not had any major issues. OBJECTIVE: Blood pressure 156/72, heart rate of 81, respiratory 18, temperature 98.2 degrees, 99% on room air.Cardiovascular: Regular rate and rhythm. Pulmonary: Bilateral breath sounds. Clear to auscultation. GI: Was soft, nontender, nondistended. Bowel sounds are positive. Extremities: No clubbing or cyanosis. LAB: White count no data. Blood sugars have varied 307, 209, 245, 108 and then back to 308 today so it is just there is no way to and she was 89 very early this morning so just very haphazard. 1. Type 2 diabetes. She seems to be doing okay. Dr. Daley had added some Actos but it seems to be helping. She is on Januvia, Actos, Victoza and Lantus twice a day and we are still having trouble controlling her blood sugars . 2. Dementia, she seems stable at her baseline. 3. Hypertension stable. DISPOSITION: Pending her clinical status. Will continue to monitor. cc: Zachery Bill MD
[2018-06-29] MEDS: LIPITOR PO SCH (21:30)
[2018-06-29] MEDS: D50W SYRINGE IV PRN (23:02)
[2018-06-30] MEDS: HUMULIN R (PARKWAY) SUBQ SCH ×4 (06:44→21:22)
[2018-06-30] MEDS: VIMPAT PO SCH ×2 (11:00→21:17)
[2018-06-30] MEDS: CULTURELLE FOR KIDS PO SCH ×3 (11:00→18:15)
[2018-06-30] MEDS: VICTOZA SUBQ SCH ×2 (11:00→16:44)
[2018-06-30] MEDS: BASAGLAR SUBQ SCH ×2 (11:00→21:16)
[2018-06-30] MEDS: JANUVIA PO SCH (11:34)
[2018-06-30] MEDS: TOPROL XL PO SCH (11:35)
[2018-06-30] MEDS: PRINIVIL PO SCH ×2 (11:35→21:17)
[2018-06-30] MEDS: ACTOS PO SCH (11:35)
[2018-06-30] MEDS: SEROQUEL PO SCH ×2 (11:35→21:17)
[2018-06-30] MEDS: NORVASC PO SCH (11:35)
[2018-06-30] MEDS: COLACE PO SCH (11:35)
[2018-06-30] MEDS: ASPIRIN PO SCH (11:35)
--- NOTE | 2018-06-30 15:33 | PROGRESS NOTE ---
DATE: 06/30/2018 SUBJECTIVE: The patient has no focal complaints. OBJECTIVE: Blood pressure is 183/70, heart rate 72, respiratory rate 20, temperature 98.3. Cardiovascular: Regular rate and rhythm. Pulmonary: Bilateral breath sounds. Clear to auscultation. GI: Soft, nontender, nondistended. Bowel sounds are positive. LABORATORY DATA: Sugar is 85, 70, 102, 276. PROBLEM LIST: 1. Diabetes is relatively well controlled on her current medications. 2. Dementia is stable currently. 3. Hypertension is stable currently. I am going to get a KUB, and we will see what that shows. DISPOSITION: Pending her clinical status. At this point, we are waiting on custody of the patient to be established as a mack of the state. That has still not happened 228 days later and, therefore, we are in the process of trying to get legal to work on cementing that out I guess, so we will continue monitoring her. cc: Zachery Bill MD
[2018-06-30] MEDS: LIPITOR PO SCH (21:17)
[2018-07-01] MEDS: HUMULIN R (PARKWAY) SUBQ SCH ×4 (05:59→21:40)
[2018-07-01] MEDS: JANUVIA PO SCH (08:50)
[2018-07-01] MEDS: PRINIVIL PO SCH ×2 (08:50→21:39)
[2018-07-01] MEDS: COLACE PO SCH (08:50)
[2018-07-01] MEDS: ASPIRIN PO SCH (08:50)
[2018-07-01] MEDS: ACTOS PO SCH (08:50)
[2018-07-01] MEDS: CULTURELLE FOR KIDS PO SCH ×3 (08:50→18:24)
[2018-07-01] MEDS: TOPROL XL PO SCH (08:50)
[2018-07-01] MEDS: VIMPAT PO SCH ×2 (08:50→21:45)
[2018-07-01] MEDS: SEROQUEL PO SCH ×2 (08:50→21:39)
[2018-07-01] MEDS: NORVASC PO SCH (08:50)
--- NOTE | 2018-07-01 13:54 | PROGRESS NOTE ---
DATE: 07/01/2018 SUBJECTIVE: She is pleasantly confused. Today she did get more agitated and I think she scratched 1 of the staff members, so she has been a bit belligerent. OBJECTIVE: Vital signs: Blood pressure 178/80, heart rate of 81, respiratory rate 18, temperature 97.7 degrees. Cardiovascular: Regular rate and rhythm. Pulmonary: Bilateral breath sounds. Clear to auscultation. GI: Soft, nontender, nondistended. Bowel sounds are positive. ASSESSMENT AND PLAN: 1. Diabetes is controlled currently. 2. Dementia. She is exhibiting combative, belligerent behavior. She is on Seroquel, Geodon. 3. Seizure disorder. Will continue Vimpat and follow. 4. Disposition. Pending her clinical status. We will continue to monitor. We are waiting on long-term placement for her. Continue to follow closely. cc: Zachery Bill MD
[2018-07-01] MEDS: BASAGLAR SUBQ SCH ×2 (14:19→21:39)
[2018-07-01] MEDS: VICTOZA SUBQ SCH (14:19)
[2018-07-01] MEDS: LIPITOR PO SCH (21:39)
[2018-07-02] MEDS: HUMULIN R (PARKWAY) SUBQ SCH ×3 (06:05→17:23)
[2018-07-02] MEDS: CULTURELLE FOR KIDS PO SCH ×3 (09:49→17:23)
[2018-07-02] MEDS: COLACE PO SCH (09:50)
[2018-07-02] MEDS: JANUVIA PO SCH (09:50)
[2018-07-02] MEDS: PRINIVIL PO SCH ×2 (09:50→21:39)
[2018-07-02] MEDS: ACTOS PO SCH (09:50)
[2018-07-02] MEDS: VIMPAT PO SCH ×2 (09:50→21:39)
[2018-07-02] MEDS: NORVASC PO SCH (09:50)
[2018-07-02] MEDS: ASPIRIN PO SCH (09:50)
[2018-07-02] MEDS: TOPROL XL PO SCH (09:50)
[2018-07-02] MEDS: SEROQUEL PO SCH ×2 (09:50→21:39)
[2018-07-02] MEDS: BASAGLAR SUBQ SCH ×2 (09:51→09:53)
[2018-07-02] MEDS: VICTOZA SUBQ SCH (09:53)
--- NOTE | 2018-07-02 11:44 | PROGRESS NOTE ---
DATE: 07/02/2018 SUBJECTIVE: Patient is sitting up in bed, pleasantly confused. No complaints at this time. OBJECTIVE: Vital signs: Temp 97.7 degrees, pulse 83, respirations 18, blood pressure 167/72, saturating 98% on room air. Lungs: Clear to auscultation bilaterally with equal lung expansion. Heart: Regular rate and rhythm. No murmurs, rubs, or gallops. Abdomen: Soft, nontender, nondistended. Bowel sounds are present x4 quadrants. ASSESSMENT: 1. Diabetes. Controlled on current medication regimen at this time. 2. Dementia. She does have episodes of combativeness and belligerent. She remains on Seroquel and Geodon. 3. Seizure disorder. We will continue her medication regimen. 4. Disposition. We still await long-term placement. Dictated by EDDIE Vicente for Ventura Pleitez MD cc: EDDIE Vicente MD
[2018-07-02] MEDS: LIPITOR PO SCH (21:39)
[2018-07-03] MEDS: HUMULIN R (PARKWAY) SUBQ SCH ×5 (00:57→22:18)
[2018-07-03] MEDS: BASAGLAR SUBQ SCH ×3 (02:19→22:19)
--- NOTE | 2018-07-03 09:32 | PROGRESS NOTE ---
DATE: 07/03/2018 SUBJECTIVE: The patient is sitting up in bed, being fed breakfast by staff, pleasantly confused, with no complaints at this time. OBJECTIVE: Vital signs: Temperature is 97.7, pulse 82, respirations 18, blood pressure 157/60, saturating 100% on room air. Lungs are clear to auscultation bilaterally with equal lung expansion and chest wall movement. Heart with regular rate and rhythm. No murmurs, rubs or gallops. Abdomen: Soft, nontender and nondistended. Bowel sounds are present x4 quadrants. DIAGNOSTIC DATA: No new labs today. ASSESSMENT: 1. Diabetes. Controlled on current medication regimen. 2. Dementia. Remains on Seroquel and Geodon. Does have periods of combativeness and belligerence but calm at this time. 3. Seizure disorder. Continue her current regimen. DISPOSITION: We still await half-way placement. Dictated by EDDIE Vicente for Ventura Pleitez MD cc: EDDIE Vicente MD
[2018-07-03] MEDS: CULTURELLE FOR KIDS PO SCH ×3 (10:25→17:04)
[2018-07-03] MEDS: SEROQUEL PO SCH ×2 (10:25→22:20)
[2018-07-03] MEDS: TOPROL XL PO SCH (10:25)
[2018-07-03] MEDS: COLACE PO SCH (10:25)
[2018-07-03] MEDS: ASPIRIN PO SCH (10:25)
[2018-07-03] MEDS: VIMPAT PO SCH ×2 (10:25→22:19)
[2018-07-03] MEDS: VICTOZA SUBQ SCH (10:26)
[2018-07-03] MEDS: JANUVIA PO SCH (10:26)
[2018-07-03] MEDS: NORVASC PO SCH (10:26)
[2018-07-03] MEDS: PRINIVIL PO SCH ×2 (10:26→22:20)
[2018-07-03] MEDS: ACTOS PO SCH (10:26)
[2018-07-03] MEDS: LIPITOR PO SCH (22:20)
[2018-07-04] MEDS: HUMULIN R (PARKWAY) SUBQ SCH ×3 (06:30→16:04)
[2018-07-04] MEDS: VICTOZA SUBQ SCH (09:09)
[2018-07-04] MEDS: COLACE PO SCH (09:09)
[2018-07-04] MEDS: CULTURELLE FOR KIDS PO SCH ×3 (09:09→17:51)
[2018-07-04] MEDS: ASPIRIN PO SCH (09:09)
[2018-07-04] MEDS: ACTOS PO SCH (09:09)
[2018-07-04] MEDS: SEROQUEL PO SCH ×2 (09:09→20:35)
[2018-07-04] MEDS: TOPROL XL PO SCH (09:09)
[2018-07-04] MEDS: NORVASC PO SCH (09:09)
[2018-07-04] MEDS: JANUVIA PO SCH (09:09)
[2018-07-04] MEDS: PRINIVIL PO SCH ×2 (09:18→20:35)
[2018-07-04] MEDS: BASAGLAR SUBQ SCH (09:19)
[2018-07-04] MEDS: VIMPAT PO SCH ×2 (09:19→20:34)
--- NOTE | 2018-07-04 12:46 | PROGRESS NOTE ---
DATE: 07/04/2018 SUBJECTIVE: Patient is lying in bed and is in a good mood today. OBJECTIVE: Vital Signs: Temperature 97.2 degrees, pulse 69 per minute, respiratory rate 18 per minute, blood pressure 166/74, pulse oximetry 100% on room air. General: The patient is alert and oriented, but kind of disoriented because of her senile dementia. Cardiovascular System: First and second heart sounds are audible without any murmurs or gallops. Respiratory System: No respiratory distress noted. Bilateral lung air entry is good without any rales or rhonchi. Gastrointestinal: Abdomen is soft and nondistended. Normal bowel sounds are present. IMPRESSION: 1. Type 2 diabetes mellitus. 2. Hypertension. 3. Seizure disorder. 4. Dyslipidemia. 5. Social neglect. PLAN: 1. The patient will be continued with atorvastatin for her dyslipidemia. 2. Patient has dementia and has periods of agitation, and because of it, she will continue with Seroquel and Geodon. She will also continue with Vimpat. 3. Patient has dementia and has periods of agitation because of which she will continue with Seroquel and Geodon. She will also continue with Vimpat be IM derek. 4. Patient is a case of social neglect, and I believe hospital financial institution branch manager have also been now involved in finding out a solution to have her placed in long-term [facility] facility. cc: Hernan Morelos MD
[2018-07-04] MEDS: LIPITOR PO SCH (20:35)
[2018-07-05] MEDS: BASAGLAR SUBQ SCH ×3 (01:52→22:36)
[2018-07-05] MEDS: HUMULIN R (PARKWAY) SUBQ SCH ×5 (01:53→22:37)
[2018-07-05] MEDS: ACTOS PO SCH (09:29)
[2018-07-05] MEDS: NORVASC PO SCH (09:29)
[2018-07-05] MEDS: JANUVIA PO SCH (09:29)
[2018-07-05] MEDS: SEROQUEL PO SCH ×2 (09:29→22:38)
[2018-07-05] MEDS: ASPIRIN PO SCH (09:29)
[2018-07-05] MEDS: VIMPAT PO SCH ×2 (09:29→22:38)
[2018-07-05] MEDS: PRINIVIL PO SCH ×2 (09:29→22:38)
[2018-07-05] MEDS: COLACE PO SCH (09:29)
[2018-07-05] MEDS: VICTOZA SUBQ SCH (09:30)
[2018-07-05] MEDS: CULTURELLE FOR KIDS PO SCH ×3 (09:30→17:07)
[2018-07-05] MEDS: TOPROL XL PO SCH (09:30)
--- NOTE | 2018-07-05 10:10 | PROGRESS NOTE ---
DATE: 07/05/2018 SUBJECTIVE: Patient is in a good mood and no acute complaints reported. OBJECTIVE: Vital Signs: Temperature 98.2 degrees, pulse 92 per minute, respiratory rate 20 per minute, blood pressure 145/116, pulse oximetry 100% on room air. I believe that blood pressure is an error and usually her blood pressure is much better than that and the diastolic blood pressure seems to be significantly elevated because of an error. Cardiovascular System: First and second heart sounds are audible without any murmurs or gallops. Respiratory System: No respiratory distress noted. Bilateral lung air entry is good without any rales or rhonchi. Abdomen: Benign. DIAGNOSTIC DATA: None. IMPRESSION: 1. Type 2 diabetes mellitus. 2. Hypertension. 3. Seizure disorder. 4. Dyslipidemia. 5. Social neglect. PLAN: The patient will continue with current care, including treatment for her diabetes, hypertension, seizure disorder, and dyslipidemia. She is a case of social neglect, and her case is in the legal system to find a solution to have placement in a long-term halfway facility. cc: Hernan Morelos MD
[2018-07-05] MEDS: LIPITOR PO SCH (22:38)
[2018-07-06] MEDS: HUMULIN R (PARKWAY) SUBQ SCH ×4 (06:41→20:26)
[2018-07-06] MEDS: APRESOLINE PO SCH ×4 (09:08→17:41)
[2018-07-06] MEDS: JANUVIA PO SCH (09:08)
[2018-07-06] MEDS: PRINIVIL PO SCH ×2 (09:08→23:38)
[2018-07-06] MEDS: ASPIRIN PO SCH (09:08)
[2018-07-06] MEDS: ACTOS PO SCH (09:08)
[2018-07-06] MEDS: NORVASC PO SCH (09:09)
[2018-07-06] MEDS: SEROQUEL PO SCH ×2 (09:09→23:38)
[2018-07-06] MEDS: CULTURELLE FOR KIDS PO SCH ×4 (09:09→17:42)
[2018-07-06] MEDS: COLACE PO SCH (09:09)
[2018-07-06] MEDS: TOPROL XL PO SCH (09:09)
[2018-07-06] MEDS: VICTOZA SUBQ SCH (09:10)
--- NOTE | 2018-07-06 09:13 | PROGRESS NOTE ---
DATE: 07/06/2018 SUBJECTIVE: The patient has no complaints this morning and appears to be in a good mood. OBJECTIVE: Vital Signs: Temperature 97.9 degrees, pulse 89 per minute, respiratory rate 16 per minute, blood pressure 175/78, pulse oximetry 98% on room air. General: The patient is awake and alert. She does not appear to be in any acute distress. Cardiovascular System: First and second heart sounds are audible without murmurs or gallops. Respiratory System: No respiratory distress noted. Bilateral lung air entry is good without any rales or rhonchi. Gastrointestinal System: Abdomen is soft and nondistended. Normal bowel sounds are present. Diagnostic Data: No new labs have been done. IMPRESSION: 1. Type 2 diabetes mellitus. 2. Hypertension. 3. Seizure disorder. 4. Dyslipidemia. 5. Dementia. 6. Social neglect. PLAN: The patient's blood pressure has been uncontrolled and, therefore, I am going to start her on hydralazine 25 mg orally 3 times a day. She will continue with amlodipine, along with lisinopril and metoprolol. We will continue care for her diabetes, seizure disorder, along with dyslipidemia and dementia. She is a case of social neglect and her case is in the legal system to find a solution for placement in a long-term [facility] facility. cc: Hernan Morelos MD
[2018-07-06] MEDS: BASAGLAR SUBQ SCH ×2 (09:14→23:36)
[2018-07-06] MEDS: VIMPAT PO SCH ×2 (09:19→23:37)
[2018-07-06] MEDS: LIPITOR PO SCH (23:38)
[2018-07-07] MEDS: HUMULIN R (PARKWAY) SUBQ SCH ×4 (06:03→22:05)
[2018-07-07] MEDS: ACTOS PO SCH (09:34)
[2018-07-07] MEDS: VIMPAT PO SCH ×2 (09:34→22:04)
[2018-07-07] MEDS: CULTURELLE FOR KIDS PO SCH ×3 (09:34→16:58)
[2018-07-07] MEDS: SEROQUEL PO SCH ×2 (09:35→22:04)
[2018-07-07] MEDS: NORVASC PO SCH (09:35)
[2018-07-07] MEDS: APRESOLINE PO SCH ×3 (09:35→16:58)
[2018-07-07] MEDS: PRINIVIL PO SCH ×2 (09:35→22:04)
[2018-07-07] MEDS: VICTOZA SUBQ SCH (09:35)
[2018-07-07] MEDS: TOPROL XL PO SCH (09:35)
[2018-07-07] MEDS: COLACE PO SCH (09:35)
[2018-07-07] MEDS: ASPIRIN PO SCH (09:35)
[2018-07-07] MEDS: BASAGLAR SUBQ SCH ×2 (09:36→22:05)
[2018-07-07] MEDS: JANUVIA PO SCH (09:44)
--- NOTE | 2018-07-07 11:32 | PROGRESS NOTE ---
DATE: 07/07/2018 SUBJECTIVE: Patient reports feeling okay. OBJECTIVE: Vital Signs: Temperature 97.9 degrees, heart rate 72, respiratory rate 16, blood pressure 186/80, O2 saturation 100% on room air. General Examination: This is an 83-year-old female lying in bed, in no acute distress. HEENT: Head is normocephalic, atraumatic. Cardiovascular: S1, S2 heard. No murmurs, gallops, or rubs. Regular rate and rhythm. Respiratory: Clear bilaterally to auscultation. No work of breathing or using accessory muscles. Abdomen: Soft. Nontender to palpation. Bowel sounds present. No organomegaly. Extremities: No clubbing, cyanosis, or edema. Peripheral pulses present in both legs. Neurological: Patient is alert and oriented x3. Moves 4 extremities. LABORATORY DATA: None. ASSESSMENT: 1. Diabetes mellitus type 2. 2. Hypertension. 3. Seizure disorder. 4. Dyslipidemia. 5. Advanced dementia. 6. Social neglect. PLAN: At this point all of her conditions are stable. Blood pressure is still high so we are going to increase the dose of Toprol from 25 mg to 50 mg p.o. daily and we will continue with the same management. We will continue treating diabetes with insulin sliding scale and Accu-Chek before meals and also at bedtime. The patient is a case of social neglect and R has been involved in her care. At this point, we will continue to monitor this patient here in the hospital. cc: Onur Parada MD
[2018-07-07] MEDS: LIPITOR PO SCH (22:04)
[2018-07-08] MEDS: HUMULIN R (PARKWAY) SUBQ SCH ×5 (06:21→21:23)
[2018-07-08] MEDS: ACTOS PO SCH (09:56)
[2018-07-08] MEDS: SEROQUEL PO SCH ×2 (09:56→21:20)
[2018-07-08] MEDS: ASPIRIN PO SCH (09:56)
[2018-07-08] MEDS: VIMPAT PO SCH ×2 (09:56→21:20)
[2018-07-08] MEDS: TOPROL XL PO SCH (09:57)
[2018-07-08] MEDS: CULTURELLE FOR KIDS PO SCH ×3 (09:57→16:10)
[2018-07-08] MEDS: NORVASC PO SCH (09:57)
[2018-07-08] MEDS: COLACE PO SCH (09:57)
[2018-07-08] MEDS: JANUVIA PO SCH (09:57)
[2018-07-08] MEDS: VICTOZA SUBQ SCH (09:57)
[2018-07-08] MEDS: PRINIVIL PO SCH ×2 (09:57→21:20)
[2018-07-08] MEDS: APRESOLINE PO SCH ×3 (09:57→16:10)
[2018-07-08] MEDS: BASAGLAR SUBQ SCH ×3 (09:58→21:38)
--- NOTE | 2018-07-08 11:16 | PROGRESS NOTE ---
DATE: 07/08/2018 SUBJECTIVE: Patient reports feeling fine. Denies any headache, nausea or vomiting. OBJECTIVE: Vital signs: Temperature 97.9 degrees, heart rate 80, respiratory rate 16, blood pressure 177/80, O2 saturation 99% on room air. General examination: This is a 89-year-old female lying in bed, in no acute distress. Cardiovascular: S1, S2 heard. No murmurs, gallops, or rubs. Regular rate and rhythm. Respiratory: Clear bilaterally to auscultation. No work of breathing or use of accessory muscles. Extremities: No cyanosis, clubbing or edema. Neurological: Patient is alert and oriented x3. Moves 4 extremities. ASSESSMENT AND PLAN: 1. Diabetes mellitus type 2. 2. Hypertension. 3. Seizure disorder. 4. Chronic obstructive pulmonary disease. 5. Advanced dementia. 6. Social neglect. PLAN: At this point, the blood pressure has been trending up, so we have changed Toprol-XL from 25 to 50 mg p.o. daily and see how she does. Apparently, blood pressure has been much better controlled. We will continue with the same management. cc: Onur Parada MD
[2018-07-08] MEDS: LIPITOR PO SCH (21:20)
[2018-07-09] MEDS: HUMULIN R (PARKWAY) SUBQ SCH ×4 (06:37→22:23)
[2018-07-09] MEDS: JANUVIA PO SCH (10:40)
[2018-07-09] MEDS: TOPROL XL PO SCH (10:41)
[2018-07-09] MEDS: COLACE PO SCH (10:41)
[2018-07-09] MEDS: VIMPAT PO SCH ×2 (10:41→22:22)
[2018-07-09] MEDS: ASPIRIN PO SCH (10:41)
[2018-07-09] MEDS: CULTURELLE FOR KIDS PO SCH ×3 (10:41→17:04)
[2018-07-09] MEDS: NORVASC PO SCH (10:41)
[2018-07-09] MEDS: APRESOLINE PO SCH ×3 (10:41→17:06)
[2018-07-09] MEDS: SEROQUEL PO SCH ×2 (10:41→22:22)
[2018-07-09] MEDS: PRINIVIL PO SCH ×2 (10:42→22:22)
[2018-07-09] MEDS: ACTOS PO SCH (10:42)
[2018-07-09] MEDS: VICTOZA SUBQ SCH (10:42)
[2018-07-09] MEDS: BASAGLAR SUBQ SCH ×2 (10:43→22:23)
--- NOTE | 2018-07-09 14:22 | PROGRESS NOTE ---
DATE: 07/09/2018 SUBJECTIVE: The patient is a little bit confused this morning. No issues noted as per nursing staff overnight. OBJECTIVE: Vital Signs: Temperature 97.6 degrees, heart rate 76, respiratory rate 16, blood pressure 129/52, O2 saturation 100% on room air. General examination: This is a chronically ill- looking, 83-year-old female lying in bed, in no acute distress. Cardiovascular: S1, S2 heard. No murmurs, gallops, or rubs. Regular rate and rhythm. Respiratory: Clear bilaterally to auscultation. No work of breathing or using accessory muscles. Abdomen: Soft. Nontender to palpation. Bowel sounds present. No organomegaly. Extremities: No clubbing, cyanosis, or edema. Peripheral pulses present in both legs. Neurological: Patient is alert and oriented x3. Moves 4 extremities. ASSESSMENT: 1. Uncontrolled hypertension. 2. Diabetes mellitus type 2. 3. Seizure disorder. 4. Chronic obstructive pulmonary disease. 5. Advanced dementia. 6. Social neglect. PLAN: At this point, after we adjusted the dose of blood pressure, I think the patient is more stable. We will continue to monitor this patient closely. cc: Onur Parada MD
[2018-07-09] MEDS: LIPITOR PO SCH (22:22)
[2018-07-10] MEDS: HUMULIN R (PARKWAY) SUBQ SCH ×4 (06:06→22:24)
--- NOTE | 2018-07-10 09:14 | PROGRESS NOTE ---
DATE: 07/10/2018 SUBJECTIVE: Patient is laying in bed and is in a good mood this morning. OBJECTIVE: Vital Signs: Temperature 97.7 degrees, pulse 77 per minute, respiratory rate 20 per minute, blood pressure 147/58, pulse oximetry 100% on room air. General: Patient is awake and alert. She is disoriented because of dementia. Cardiovascular System: First and second heart sounds are audible without any murmurs or gallops. Respiratory System: No respiratory distress noted. Bilateral lung air entry is good without any rales or rhonchi. Gastrointestinal: Abdomen is soft and nondistended. Normal bowel sounds are present. DIAGNOSTIC DATA: No new diagnostic data has been done. IMPRESSION: 1. Type 2 diabetes mellitus that has been uncontrolled since patient's glucose levels have been persistently elevated. 2. Hypertension that is somewhat reasonably under control. 3. Seizure disorder. 4. Dyslipidemia. 5. Dementia 6. Social neglect. PLAN: 1. Patient will be continued on Lantus insulin 35 units subcutaneously twice daily and we will continue with regular insulin subcutaneously as per sliding scale. She will also continue with Januvia 100 mg daily, along with Victoza 1.8 mg subcutaneously daily. I am going to increase the dose of Actos to 30 mg daily, however. We will continue with home glucose monitoring. 2. Blood pressure has been under reasonable control, and we are going to continue with amlodipine 10 mg daily along with hydralazine 25 mg 3 times a day and lisinopril 20 mg twice daily. She will also continue with low-salt diet, along with metoprolol ER 50 mg daily. We might further adjust her blood pressure medications if blood pressure remains borderline elevated. 3. Seizure disorder and dyslipidemia, along with dementia. Symptoms have been stable and therefore, we are going to continue with the rest of her current home medications. 4. Patient has been a case of social neglect, and has been here for several months now. Her case is with the 3rd pressman, and they are trying to find a solution, so that the patient can be placed in a long-term long term facility. cc: Hernan Morelos MD
[2018-07-10] MEDS: ACTOS PO SCH (10:19)
[2018-07-10] MEDS: SEROQUEL PO SCH ×2 (10:19→22:17)
[2018-07-10] MEDS: VIMPAT PO SCH ×2 (10:20→22:17)
[2018-07-10] MEDS: NORVASC PO SCH (10:20)
[2018-07-10] MEDS: TOPROL XL PO SCH (10:20)
[2018-07-10] MEDS: APRESOLINE PO SCH ×3 (10:20→22:17)
[2018-07-10] MEDS: COLACE PO SCH (10:20)
[2018-07-10] MEDS: CULTURELLE FOR KIDS PO SCH ×3 (10:21→22:13)
[2018-07-10] MEDS: PRINIVIL PO SCH ×2 (10:21→22:18)
[2018-07-10] MEDS: ASPIRIN PO SCH (10:21)
[2018-07-10] MEDS: JANUVIA PO SCH (10:21)
[2018-07-10] MEDS: VICTOZA SUBQ SCH (10:22)
[2018-07-10] MEDS: BASAGLAR SUBQ SCH ×2 (12:23→22:23)
[2018-07-10] MEDS: LIPITOR PO SCH (22:17)
[2018-07-11] MEDS: HUMULIN R (PARKWAY) SUBQ SCH ×5 (00:50→20:55)
[2018-07-11] MEDS: CULTURELLE FOR KIDS PO SCH ×3 (10:15→19:32)
[2018-07-11] MEDS: COLACE PO SCH (10:16)
[2018-07-11] MEDS: JANUVIA PO SCH (10:16)
[2018-07-11] MEDS: SEROQUEL PO SCH ×2 (10:16→20:57)
[2018-07-11] MEDS: ACTOS PO SCH (10:16)
[2018-07-11] MEDS: ASPIRIN PO SCH (10:17)
[2018-07-11] MEDS: APRESOLINE PO SCH ×3 (10:17→19:32)
[2018-07-11] MEDS: VIMPAT PO SCH ×2 (10:17→20:56)
[2018-07-11] MEDS: PRINIVIL PO SCH ×2 (10:17→20:57)
[2018-07-11] MEDS: TOPROL XL PO SCH (10:17)
[2018-07-11] MEDS: VICTOZA SUBQ SCH (10:18)
[2018-07-11] MEDS: BASAGLAR SUBQ SCH (10:19)
[2018-07-11] MEDS: NORVASC PO SCH (10:21)
--- NOTE | 2018-07-11 11:14 | PROGRESS NOTE ---
DATE: 07/11/2018 SUBJECTIVE: The patient is in a good mood this morning and denies having any acute complaints. OBJECTIVE: Vital Signs: Temperature 97.6 degrees, pulse 79 per minute, respiratory rate 18 per minute, blood pressure 159/65, pulse ox 97% on room air. General: Patient is alert and awake. She does not appear to be in any acute distress. Cardiovascular System: First and second heart sounds are audible without any murmurs or gallops. Respiratory System: No respiratory distress noted. Bilateral lung air entry is good without any rales or rhonchi. Gastrointestinal: Abdomen is soft and nondistended. Normal bowel sounds are present. DIAGNOSTIC DATA: No new diagnostic data have been done. IMPRESSION: 1. Type 2 diabetes mellitus that has been uncontrolled. 2. Hypertension that has been slightly uncontrolled. 3. Seizure disorder. 4. Dyslipidemia. 5. Dementia. 6. Social neglect. PLAN: The patient's diabetes has been uncontrolled, and she has been having occasional hypoglycemic episodes during configurator time. Would, therefore, change her Lantus to 15 units subcutaneously once a day in the morning. She will be kept on regular insulin as per sliding scale and would also continue with Januvia 100 mg daily, Actos 30 mg daily, and Victoza 1.8 mg subcutaneously daily. Blood pressure has somewhat improved as compared to the previous days. She will be kept on her current medications for now, which include amlodipine 10 mg daily, hydralazine 25 mg 3 times a day, and lisinopril 20 mg twice daily along with metoprolol ER 50 mg daily. Patient has history of seizure disorder and dyslipidemia, along with dementia for which she will continue with current medications. Patient has been a case of social neglect. We are still trying to get placement for her. The case is with [facility] and bushing press operator, and they are going to find out if they can find a place for her to be kept in a long-term half-way facility. cc: Hernan Morelos MD
[2018-07-11] MEDS: LIPITOR PO SCH (20:57)
[2018-07-12] MEDS: HUMULIN R (PARKWAY) SUBQ SCH ×4 (06:17→20:44)
[2018-07-12] MEDS: CULTURELLE FOR KIDS PO SCH ×3 (08:16→16:51)
[2018-07-12] MEDS: VIMPAT PO SCH ×2 (08:16→20:43)
[2018-07-12] MEDS: ASPIRIN PO SCH (08:16)
[2018-07-12] MEDS: TOPROL XL PO SCH (08:16)
[2018-07-12] MEDS: SEROQUEL PO SCH ×2 (08:16→20:43)
[2018-07-12] MEDS: APRESOLINE PO SCH ×3 (08:16→16:52)
[2018-07-12] MEDS: JANUVIA PO SCH (08:16)
[2018-07-12] MEDS: NORVASC PO SCH (08:16)
[2018-07-12] MEDS: PRINIVIL PO SCH ×2 (08:16→20:43)
[2018-07-12] MEDS: COLACE PO SCH (08:16)
[2018-07-12] MEDS: VICTOZA SUBQ SCH (08:24)
[2018-07-12] MEDS: BASAGLAR SUBQ SCH (08:26)
[2018-07-12] MEDS: ACTOS PO SCH (12:02)
--- NOTE | 2018-07-12 15:00 | PROGRESS NOTE ---
DATE: 07/12/2018 SUBJECTIVE: The patient is not having any complaints this morning. OBJECTIVE: VITAL SIGNS: Temperature 97.8 degrees Fahrenheit, pulse 81 per minute, respiratory rate 18 per minute, blood pressure 155/71. Pulse oximetry 100% on room air. GENERAL: Patient is awake and somewhat disoriented but is not in any acute distress. CARDIOVASCULAR: S1, S2 audible without any murmurs or gallops. RESPIRATORY: No respiratory distress noted. Bilateral air entry is good without wheezing. GASTROINTESTINAL: Abdomen is soft and nondistended. Normal bowel sounds at present. DIAGNOSTIC DATA: No new labs have been done. ASSESSMENT: 1. Type 2 diabetes mellitus that has been uncontrolled. 2. Hypertension. 3. Seizure disorder. 4. Dyslipidemia. 5. Dementia. 6. Social neglect. PLAN: 1. The patient's diabetes is somewhat better controlled after changing her insulin and medications. She is no longer having any hypoglycemic events in the early childhood lead teacher times. We will, therefore, continue with her current insulin regimen along with other medications including Januvia, Actos and Victoza. 2. Blood pressure has improved after changing her medicines. We will, therefore, continue with amlodipine 10 mg daily along with hydralazine 25 mg t.i.d., Lisinopril 20 mg twice daily, and metoprolol ER 50 mg daily. 3. Seizure disorder, dyslipidemia along with dementia. Symptoms have been stable for which the patient will continue with routine medications. 4. The patient has been a case of social neglect. She is going to stay here until we find a place for her stay. [facility] and drawer in [employer] have been involved and finding a solution to find a place for her in a long-term long term facility. cc: Hernan Morelos MD
[2018-07-12] MEDS: LIPITOR PO SCH (20:43)
[2018-07-13] MEDS: HUMULIN R (PARKWAY) SUBQ SCH ×3 (06:21→18:51)
[2018-07-13] MEDS: ACTOS PO SCH (08:10)
[2018-07-13] MEDS: VIMPAT PO SCH ×2 (08:10→21:00)
[2018-07-13] MEDS: PRINIVIL PO SCH ×2 (08:12→21:00)
[2018-07-13] MEDS: COLACE PO SCH (08:12)
[2018-07-13] MEDS: ASPIRIN PO SCH (08:12)
[2018-07-13] MEDS: CULTURELLE FOR KIDS PO SCH ×2 (08:12→18:50)
[2018-07-13] MEDS: SEROQUEL PO SCH ×2 (08:12→21:00)
[2018-07-13] MEDS: NORVASC PO SCH (08:13)
[2018-07-13] MEDS: JANUVIA PO SCH (08:13)
[2018-07-13] MEDS: TOPROL XL PO SCH (08:13)
[2018-07-13] MEDS: VICTOZA SUBQ SCH (08:14)
[2018-07-13] MEDS: BASAGLAR SUBQ SCH (09:00)
[2018-07-13] MEDS: APRESOLINE PO SCH ×3 (11:35→21:00)
--- NOTE | 2018-07-13 15:39 | PROGRESS NOTE ---
DATE: 07/13/2018 SUBJECTIVE: The patient has no major complaints. OBJECTIVE: Vital Signs: Blood pressure 150/77, heart rate 82, respiratory rate 20, temperature 97.6 degrees, 100% on room air. Cardiovascular: Regular rate and rhythm. Pulmonary: Bilateral breath sounds clear to auscultation. Gastrointestinal: Soft, nontender, nondistended. Bowel sounds are positive. LABORATORY DATA: Her sugars still vary a little bit. Her lowest sugar though today was 79 yesterday. The rest have been improved. Dr. Morelos has changed her to once a day Lantus, which for the record she had already been on and then we changed her to twice a day because she was still not correct. I do not think there is going to be a perfect solution here less an endocrinology evaluation which is unavailable. PROBLEM LIST: 1. Brittle diabetic. She is on 50 of Lantus, Januvia, Actos, and Victoza. We will follow. 2. Dementia with delirium. She seems to be doing better on that. 3. Hypertension is still not quite controlled. Dr. Spann actually worked on some control earlier. 4. Seizure disorder. She is on Vimpat. Will continue to monitor. DISPOSITION: Pending her clinical status. Will see how things go. cc: Zachery Bill MD
[2018-07-13] MEDS: LIPITOR PO SCH (21:00)
[2018-07-14] MEDS: HUMULIN R (PARKWAY) SUBQ SCH ×4 (07:57→16:50)
[2018-07-14] MEDS: CULTURELLE FOR KIDS PO SCH ×3 (08:57→17:30)
[2018-07-14] MEDS: ACTOS PO SCH (08:57)
[2018-07-14] MEDS: PRINIVIL PO SCH ×2 (08:58→21:56)
[2018-07-14] MEDS: NORVASC PO SCH (08:58)
[2018-07-14] MEDS: SEROQUEL PO SCH ×2 (08:58→21:56)
[2018-07-14] MEDS: TOPROL XL PO SCH (08:58)
[2018-07-14] MEDS: JANUVIA PO SCH (08:58)
[2018-07-14] MEDS: ASPIRIN PO SCH (08:58)
[2018-07-14] MEDS: APRESOLINE PO SCH ×3 (08:59→17:30)
[2018-07-14] MEDS: BASAGLAR SUBQ SCH (08:59)
[2018-07-14] MEDS: COLACE PO SCH (09:00)
[2018-07-14] MEDS: VIMPAT PO SCH ×2 (11:49→21:56)
[2018-07-14] MEDS: VICTOZA SUBQ SCH (11:51)
--- NOTE | 2018-07-14 14:27 | PROGRESS NOTE ---
DATE: 07/14/2018 SUBJECTIVE: The patient has no focal complaints. She is sitting up in bed. She does intermittently kind of holler and try to get out of bed but that is kind of baseline for her. OBJECTIVE: Vital signs are stable.Cardiovascular: Regular rate and rhythm. Pulmonary: Bilateral breath sounds. Clear to auscultation. GI: Soft, nontender, nondistended. Bowel sounds are positive. LABORATORY DATA: Her sugars still not great. She has not had any hypoglycemic episodes but she has had episodes where she is in the 200 to 300 range. DISPOSITION: Pending her clinical status. We will continue to follow. We are still waiting on her guardianship before long-term placement. cc: Zachery Bill MD
[2018-07-14] MEDS: LIPITOR PO SCH (21:57)
[2018-07-15] MEDS: SEROQUEL PO SCH ×2 (08:59→21:07)
[2018-07-15] MEDS: APRESOLINE PO SCH ×3 (09:00→17:45)
[2018-07-15] MEDS: JANUVIA PO SCH (09:00)
[2018-07-15] MEDS: VIMPAT PO SCH ×2 (09:00→21:07)
[2018-07-15] MEDS: ASPIRIN PO SCH (09:00)
[2018-07-15] MEDS: COLACE PO SCH (09:00)
[2018-07-15] MEDS: CULTURELLE FOR KIDS PO SCH ×3 (09:00→17:45)
[2018-07-15] MEDS: ACTOS PO SCH (09:00)
[2018-07-15] MEDS: NORVASC PO SCH (09:00)
[2018-07-15] MEDS: TOPROL XL PO SCH (09:00)
[2018-07-15] MEDS: PRINIVIL PO SCH ×2 (09:01→21:06)
[2018-07-15] MEDS: BASAGLAR SUBQ SCH (09:01)
[2018-07-15] MEDS: VICTOZA SUBQ SCH (09:01)
[2018-07-15] MEDS: HUMULIN R (PARKWAY) SUBQ SCH ×4 (11:51→21:48)
--- NOTE | 2018-07-15 15:30 | PROGRESS NOTE ---
DATE: 07/15/2018 SUBJECTIVE: Patient has no focal complaints. OBJECTIVE: Vital signs: Blood pressure 133/53, heart rate 75, respiratory 16, temperature 98 degrees, 100% on room air. Cardiovascular: Regular rate and rhythm. Pulmonary: Bilateral breath sounds. Clear to auscultation. Gastrointestinal: Soft, nontender, nondistended. Bowel sounds are positive. DIAGNOSTIC DATA: 1. Sugars are still variant, but she had 71 and 154 today, so leave her sugars at the current level. 2. Hypertension is relatively well controlled. DISPOSITION: Pending her clinical status. We will continue to follow closely. cc: Zachery Bill MD
[2018-07-15] MEDS: LIPITOR PO SCH (21:07)
[2018-07-16] MEDS: HUMULIN R (PARKWAY) SUBQ SCH ×4 (06:50→21:58)
[2018-07-16] MEDS: VIMPAT PO SCH ×2 (08:31→21:57)
[2018-07-16] MEDS: ACTOS PO SCH (08:31)
[2018-07-16] MEDS: APRESOLINE PO SCH ×3 (08:31→17:50)
[2018-07-16] MEDS: NORVASC PO SCH (08:31)
[2018-07-16] MEDS: SEROQUEL PO SCH ×2 (08:31→21:58)
[2018-07-16] MEDS: ASPIRIN PO SCH (08:31)
[2018-07-16] MEDS: TOPROL XL PO SCH (08:31)
[2018-07-16] MEDS: JANUVIA PO SCH (08:31)
[2018-07-16] MEDS: COLACE PO SCH (08:31)
[2018-07-16] MEDS: BASAGLAR SUBQ SCH (08:32)
[2018-07-16] MEDS: PRINIVIL PO SCH ×2 (08:32→21:58)
[2018-07-16] MEDS: VICTOZA SUBQ SCH (08:32)
[2018-07-16] MEDS: CULTURELLE FOR KIDS PO SCH ×3 (08:32→17:51)
--- NOTE | 2018-07-16 17:19 | PROGRESS NOTE ---
DATE: 07/16/2018 SUBJECTIVE: The patient has no major complaint. She is sitting up in bed, doing okay. OBJECTIVE: Vital Signs: Blood pressure 174/82, heart rate 79, respiratory rate 18, temperature 97.3, 100% on room air. Cardiovascular: Regular rate and rhythm. Pulmonary: Bilateral breath sounds. Clear to auscultation. GI: Soft, nontender, nondistended. Bowel sounds are positive. Sugars have been 360, 361, 71. PROBLEM LIST: 1. Type 2 diabetes. I am going to bump up her Lantus to 55 units and follow. 2. Hypertension. Appears to be stable currently. Will continue regular medications. 3. Dementia with history of behavioral issues. She is pretty well controlled on her current regimen. DISPOSITION: Pending guardianship and placement, but we will continue to follow. cc: Zachery Bill MD
[2018-07-16] MEDS: LIPITOR PO SCH (21:58)
[2018-07-17] MEDS: HUMULIN R (PARKWAY) SUBQ SCH ×4 (06:23→20:33)
[2018-07-17] MEDS: PRINIVIL PO SCH ×2 (09:21→20:33)
[2018-07-17] MEDS: JANUVIA PO SCH (09:22)
[2018-07-17] MEDS: SEROQUEL PO SCH ×2 (09:22→20:33)
[2018-07-17] MEDS: ASPIRIN PO SCH (09:22)
[2018-07-17] MEDS: CULTURELLE FOR KIDS PO SCH ×3 (09:22→17:13)
[2018-07-17] MEDS: TOPROL XL PO SCH (09:22)
[2018-07-17] MEDS: COLACE PO SCH (09:23)
[2018-07-17] MEDS: VIMPAT PO SCH ×2 (09:23→20:32)
[2018-07-17] MEDS: ACTOS PO SCH (09:23)
[2018-07-17] MEDS: NORVASC PO SCH (09:24)
[2018-07-17] MEDS: APRESOLINE PO SCH ×3 (09:26→17:13)
[2018-07-17] MEDS: TYLENOL PO PRN (12:46)
[2018-07-17] MEDS: VICTOZA SUBQ SCH (16:44)
[2018-07-17] MEDS: LIPITOR PO SCH (20:33)
--- NOTE | 2018-07-17 21:06 | PROGRESS NOTE ---
DATE: 07/17/2018 SUBJECTIVE: She is sitting up pleasantly in bed, but I did ask her about her past. 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 OBJECTIVE: Blood pressure 165/65, heart rate 79, respiratory rate 18, temperature 97.3 degrees, 100% on room air.Cardiovascular: Regular rate and rhythm. Pulmonary: Bilateral breath sounds. Clear to auscultation. GI: Soft, nontender, nondistended. Bowel sounds are positive. LABORATORY DATA: 1. Her sugars are still variant today. I think she had a sugar that was down to 59 and 68 this morning. I did bump up her Lantus a little bit I think yesterday, but I am not even sure she got that dose last night. We have adjusted her dose again and she is on other agents as well. 2. Hypertension is stable on her current medications. DISPOSITION: Pending her clinical status, hopefully she is another guardianship case. We are just awaiting guardianship and we are not sure when that will actually transpire. cc: Zachery Bill MD
[2018-07-18] MEDS: HUMULIN R (PARKWAY) SUBQ SCH ×4 (06:49→23:12)
[2018-07-18] MEDS: SEROQUEL PO SCH ×2 (09:35→23:12)
[2018-07-18] MEDS: VIMPAT PO SCH ×2 (09:35→23:12)
[2018-07-18] MEDS: CULTURELLE FOR KIDS PO SCH ×3 (09:36→18:09)
[2018-07-18] MEDS: COLACE PO SCH (09:36)
[2018-07-18] MEDS: PRINIVIL PO SCH ×2 (09:36→23:13)
[2018-07-18] MEDS: JANUVIA PO SCH (09:36)
[2018-07-18] MEDS: NORVASC PO SCH (09:36)
[2018-07-18] MEDS: ASPIRIN PO SCH (09:36)
[2018-07-18] MEDS: TOPROL XL PO SCH (09:36)
[2018-07-18] MEDS: APRESOLINE PO SCH ×3 (09:37→18:09)
[2018-07-18] MEDS: VICTOZA SUBQ SCH (09:38)
[2018-07-18] MEDS: ACTOS PO SCH (09:38)
[2018-07-18] MEDS: LIPITOR PO SCH (23:12)
--- NOTE | 2018-07-18 23:42 | PROGRESS NOTE ---
DATE: 07/18/2018 SUBJECTIVE: The patient has no focal complaints. OBJECTIVE: Blood pressure 181/75, heart rate of 72, respiratory rate 18, temperature 97 degrees, 100% on room air. Cardiovascular: Regular rate and rhythm. Pulmonary: Bilateral breath sounds. Clear to auscultation. Gastrointestinal: Soft, nontender, nondistended. Bowel sounds are positive. Extremity exam: No clubbing or cyanosis. Lymphatic exam: No peripheral edema. Neurological: Nonfocal. LABORATORY DATA: Showed blood sugars still vary, 87 then 321. PROBLEM LIST: 1. Type 2 diabetes. Appears to be stable. We have adjusted her Lantus a bit just because of her intermittent hypoglycemia. 2. Hypertension. Stable on current medications. Looks a little bit elevated today. 3. Dementia with behavioral issues. We will continue to monitor very closely. cc: Zachery Bill MD
[2018-07-19] MEDS: HUMULIN R (PARKWAY) SUBQ SCH ×4 (07:27→23:08)
[2018-07-19] MEDS: VIMPAT PO SCH ×2 (09:09→23:07)
[2018-07-19] MEDS: ASPIRIN PO SCH (09:09)
[2018-07-19] MEDS: TOPROL XL PO SCH (09:09)
[2018-07-19] MEDS: NORVASC PO SCH (09:09)
[2018-07-19] MEDS: ACTOS PO SCH (09:09)
[2018-07-19] MEDS: COLACE PO SCH (09:09)
[2018-07-19] MEDS: APRESOLINE PO SCH ×3 (09:09→17:19)
[2018-07-19] MEDS: PRINIVIL PO SCH ×2 (09:09→23:07)
[2018-07-19] MEDS: SEROQUEL PO SCH ×2 (09:09→23:08)
[2018-07-19] MEDS: BASAGLAR SUBQ SCH (09:10)
[2018-07-19] MEDS: VICTOZA SUBQ SCH (09:10)
[2018-07-19] MEDS: JANUVIA PO SCH (09:10)
[2018-07-19] MEDS: CULTURELLE FOR KIDS PO SCH ×3 (09:23→17:19)
--- NOTE | 2018-07-19 17:19 | PROGRESS NOTE ---
DATE: 07/19/2018 SUBJECTIVE: Today, she is very grumpy. She just pushes you away when you try to examine her. She will not verbalize. She is just not very happy today. OBJECTIVE: Vital signs: Blood pressure 180/77, heart rate of 80, respiratory rate 18, temperature 97.8 degrees. Cardiovascular: Regular rate and rhythm. Pulmonary: Bilateral breath sounds. Clear to auscultation. Gastrointestinal: Soft, nontender. DIAGNOSTIC STUDIES: Her sugars have been okay 181, 246, 321, so doing better. PROBLEM LIST: 1. Type 2 diabetes. I have gone up a little bit on her Lantus. Dr. Morelos, I think, had knocked it down to once a day. It is still not under control. We have been dealing with this for weeks to months and still have not had great control, but we will follow. 2. Hypertension. Appears to be stable. 3. Dementia. She is at baseline. DISPOSITION: This is obviously difficult. I think she has a middle school science teacher or guardian, but the financial aspects of paying for her long-term care are still not worked out, and therefore she is stuck in the hospital essentially. cc: Zachery Bill MD
[2018-07-19] MEDS: LIPITOR PO SCH (23:07)
[2018-07-20] MEDS: HUMULIN R (PARKWAY) SUBQ SCH ×4 (06:08→23:04)
[2018-07-20] MEDS: PRINIVIL PO SCH ×2 (09:22→23:04)
[2018-07-20] MEDS: SEROQUEL PO SCH ×2 (09:22→23:04)
[2018-07-20] MEDS: COLACE PO SCH (09:22)
[2018-07-20] MEDS: JANUVIA PO SCH (09:22)
[2018-07-20] MEDS: VIMPAT PO SCH ×2 (09:22→23:03)
[2018-07-20] MEDS: TOPROL XL PO SCH (09:23)
[2018-07-20] MEDS: NORVASC PO SCH (09:23)
[2018-07-20] MEDS: ACTOS PO SCH (09:23)
[2018-07-20] MEDS: ASPIRIN PO SCH (09:23)
[2018-07-20] MEDS: APRESOLINE PO SCH ×3 (09:23→18:08)
[2018-07-20] MEDS: BASAGLAR SUBQ SCH (09:24)
[2018-07-20] MEDS: CULTURELLE FOR KIDS PO SCH ×3 (09:24→18:08)
[2018-07-20] MEDS: VICTOZA SUBQ SCH (09:25)
--- NOTE | 2018-07-20 22:25 | PROGRESS NOTE ---
DATE: 07/20/2018 SUBJECTIVE: The patient's blood sugars have been low today. This patient has been uninterested in eating. PHYSICAL: Temperature 97.7, pulse 78, respiratory 20, BP 134/58.General: Patient is in no distress. Physical exam is unchanged. Lungs: Clear. ASSESSMENT: 1. Diabetes. 2. Hypertension. 3. Dementia. 4. History of seizures. PLAN: Continue to wait for R to be able to transition her long-term placement. The patient's diabetes continues to be very problematic as she will go days of eating lots of food and then a day or 2 of eating very little which will drop her sugar. Will have to continue to allow blood sugars to be elevated to prevent the severe hypoglycemic episodes. cc: Ricky Daley MD
[2018-07-20] MEDS: LIPITOR PO SCH (23:04)
[2018-07-21 06:00] LABS: HEMATOCRIT 35.5 % (37.0-47.0); HEMOGLOBIN 11.1 g/dL (12.0-16.0); MCH 27.1 PG (27-31); MCHC 31.3 g/dL (33-37); MCV 86.6 FL (81-99); MPV 11.7 FL (7.4-10.4); RBC 4.1 XMIL (4.2-5.4); RDW 14.9 % (11.5-14.5); WBC 7.19 X1000 (4.8-10.8)
[2018-07-21] MEDS: HUMULIN R (PARKWAY) SUBQ SCH ×4 (06:06→22:52)
[2018-07-21 06:23] LABS: AGAP 8; ALKALINE PHOSPHATASE 89 U/L (32-104); BUN 18 mg/dL (8-22); CALCIUM 9.6 mg/dL (8.8-10.2); CHLORIDE 108 mmol/L (98-107); COSMO 289; CREATININE 0.6 mg/dL (0.5-0.9); ESTIMATED GFR > 60; GLUCOSE 136 mg/dL (70-104); GOT 14 U/L (10-30); GPT 19 U/L (10-36); MAGNESIUM 2.2 mg/dL (1.5-2.7); POTASSIUM 3.4 mmol/L (3.5-5.1); SODIUM 143 mmol/L (136-145); TCO2 27 mmol/L (25-35); TOTAL PROTEIN 6.6 g/dL (6.3-8.3)
[2018-07-21] MEDS: ACTOS PO SCH (11:08)
[2018-07-21] MEDS: SEROQUEL PO SCH ×2 (11:08→22:20)
[2018-07-21] MEDS: VIMPAT PO SCH ×2 (11:08→22:21)
[2018-07-21] MEDS: VICTOZA SUBQ SCH (11:08)
[2018-07-21] MEDS: TOPROL XL PO SCH (11:08)
[2018-07-21] MEDS: CULTURELLE FOR KIDS PO SCH ×4 (11:08→19:01)
[2018-07-21] MEDS: COLACE PO SCH (11:09)
[2018-07-21] MEDS: PRINIVIL PO SCH ×2 (11:09→22:20)
[2018-07-21] MEDS: JANUVIA PO SCH (11:09)
[2018-07-21] MEDS: NORVASC PO SCH (11:09)
[2018-07-21] MEDS: ASPIRIN PO SCH (11:10)
[2018-07-21] MEDS: BASAGLAR SUBQ SCH (11:10)
[2018-07-21] MEDS: APRESOLINE PO SCH ×3 (11:10→19:01)
[2018-07-21] MEDS: LIPITOR PO SCH (22:20)
[2018-07-22] MEDS: HUMULIN R (PARKWAY) SUBQ SCH ×4 (01:18→18:10)
--- NOTE | 2018-07-22 03:07 | PROGRESS NOTE ---
DATE: 11/14/2017 SUBJECTIVE: No new complaints. The patient did not eat well yesterday. OBJECTIVE: Vital Signs: Temperature 92, pulse 84, respiratory rate 16, BP 162/68. General: The patient is currently in no distress. She is lying flat in the bed. Physical examination is unchanged. LABORATORY DATA: Reviewed and stable. She does have a low potassium. We will place her on potassium for a few days and follow. cc: Ricky Daley MD
[2018-07-22] MEDS: CULTURELLE FOR KIDS PO SCH ×3 (08:42→18:53)
[2018-07-22] MEDS: COLACE PO SCH (08:43)
[2018-07-22] MEDS: JANUVIA PO SCH (08:43)
[2018-07-22] MEDS: TOPROL XL PO SCH (08:43)
[2018-07-22] MEDS: NORVASC PO SCH (08:43)
[2018-07-22] MEDS: ASPIRIN PO SCH (08:43)
[2018-07-22] MEDS: VIMPAT PO SCH ×2 (08:43→22:05)
[2018-07-22] MEDS: APRESOLINE PO SCH ×3 (08:44→18:53)
[2018-07-22] MEDS: ACTOS PO SCH (08:44)
[2018-07-22] MEDS: SEROQUEL PO SCH ×2 (08:45→22:04)
[2018-07-22] MEDS: VICTOZA SUBQ SCH (08:45)
[2018-07-22] MEDS: PRINIVIL PO SCH ×2 (08:45→22:05)
[2018-07-22] MEDS: BASAGLAR SUBQ SCH (14:50)
[2018-07-22] MEDS: LIPITOR PO SCH (22:04)
[2018-07-22] MEDS: HUMALOG (PARKWAY) SUBQ SCH (22:05)
--- NOTE | 2018-07-23 00:36 | PROGRESS NOTE ---
DATE: 07/22/2018 SUBJECTIVE: No new complaints. OBJECTIVE: New physical changes. Blood sugars continue to be difficult to manage. Vital signs are stable. PLAN: We will continue patient in the hospital until which time she will be transitioned to further long-term care. Continue to follow her blood sugars as well as blood pressures. cc: Ricky Daley MD
[2018-07-23] MEDS: HUMALOG (PARKWAY) SUBQ SCH ×4 (06:18→22:03)
[2018-07-23] MEDS: TOPROL XL PO SCH (10:40)
[2018-07-23] MEDS: NORVASC PO SCH (10:40)
[2018-07-23] MEDS: JANUVIA PO SCH (10:40)
[2018-07-23] MEDS: ASPIRIN PO SCH (10:40)
[2018-07-23] MEDS: SEROQUEL PO SCH ×2 (10:40→20:44)
[2018-07-23] MEDS: ACTOS PO SCH (10:40)
[2018-07-23] MEDS: COLACE PO SCH (10:40)
[2018-07-23] MEDS: VIMPAT PO SCH ×2 (10:40→20:44)
[2018-07-23] MEDS: CULTURELLE FOR KIDS PO SCH ×3 (10:41→17:20)
[2018-07-23] MEDS: VICTOZA SUBQ SCH (10:41)
[2018-07-23] MEDS: APRESOLINE PO SCH ×3 (10:41→17:20)
[2018-07-23] MEDS: PRINIVIL PO SCH ×2 (10:42→20:44)
[2018-07-23] MEDS: BASAGLAR SUBQ SCH (10:42)
[2018-07-23] MEDS: LIPITOR PO SCH (20:44)
[2018-07-24] MEDS: HUMALOG (PARKWAY) SUBQ SCH ×4 (06:10→20:36)
[2018-07-24] MEDS: JANUVIA PO SCH (09:36)
[2018-07-24] MEDS: SEROQUEL PO SCH ×2 (09:36→20:35)
[2018-07-24] MEDS: VIMPAT PO SCH ×2 (09:36→20:36)
[2018-07-24] MEDS: NORVASC PO SCH (09:37)
[2018-07-24] MEDS: COLACE PO SCH (09:37)
[2018-07-24] MEDS: ACTOS PO SCH (09:37)
[2018-07-24] MEDS: TOPROL XL PO SCH (09:37)
[2018-07-24] MEDS: BASAGLAR SUBQ SCH (09:37)
[2018-07-24] MEDS: VICTOZA SUBQ SCH (09:37)
[2018-07-24] MEDS: APRESOLINE PO SCH ×3 (09:37→16:57)
[2018-07-24] MEDS: ASPIRIN PO SCH (09:37)
[2018-07-24] MEDS: PRINIVIL PO SCH ×2 (09:37→20:36)
[2018-07-24] MEDS: CULTURELLE FOR KIDS PO SCH ×3 (09:37→16:57)
[2018-07-24] MEDS: LIPITOR PO SCH (20:36)
--- NOTE | 2018-07-24 23:41 | PROGRESS NOTE ---
DATE: 07/23/2018 SUBJECTIVE: Patient has no new complaints. OBJECTIVE: Vital signs reviewed, temperature 97, pulse 90, BP 157/65.General: Patient is in no distress. Physical is unchanged. PLAN: Will continue patient in the hospital, continue symptomatic treatment as needed. cc: Ricky Daley MD
--- NOTE | 2018-07-25 02:33 | PROGRESS NOTE ---
DATE: 07/24/2018 SUBJECTIVE: No changes. PHYSICAL: Unchanged. Patient is awake. She is in no distress. Vital signs are stable. Blood sugars remain between 90s and 270s. PLAN: We will continue patient in the hospital. Continue symptomatic care. cc: Ricky Daley MD
[2018-07-25] MEDS: HUMALOG (PARKWAY) SUBQ SCH ×4 (06:11→23:26)
[2018-07-25] MEDS: SEROQUEL PO SCH ×2 (09:45→21:34)
[2018-07-25] MEDS: JANUVIA PO SCH (09:45)
[2018-07-25] MEDS: VIMPAT PO SCH ×2 (09:45→21:34)
[2018-07-25] MEDS: ACTOS PO SCH (09:45)
[2018-07-25] MEDS: APRESOLINE PO SCH ×3 (09:45→16:46)
[2018-07-25] MEDS: ASPIRIN PO SCH (09:46)
[2018-07-25] MEDS: NORVASC PO SCH (09:46)
[2018-07-25] MEDS: CULTURELLE FOR KIDS PO SCH ×3 (09:46→16:46)
[2018-07-25] MEDS: VICTOZA SUBQ SCH (09:46)
[2018-07-25] MEDS: COLACE PO SCH (09:46)
[2018-07-25] MEDS: BASAGLAR SUBQ SCH (09:46)
[2018-07-25] MEDS: TOPROL XL PO SCH (09:46)
[2018-07-25] MEDS: PRINIVIL PO SCH ×2 (09:46→21:34)
[2018-07-25] MEDS: LIPITOR PO SCH (21:34)
--- NOTE | 2018-07-26 00:16 | PROGRESS NOTE ---
DATE: 07/25/2018 SUBJECTIVE: No new changes. PHYSICAL EXAMINATION: No new changes. Vital signs stable. BP 173/75. Blood sugars 92-305. PLAN: Continue patient in the hospital. Continue symptomatic treatment until which time she can transition to long-term care. cc: Ricky Daley MD
[2018-07-26] MEDS: HUMALOG (PARKWAY) SUBQ SCH ×4 (07:45→20:48)
[2018-07-26] MEDS: ACTOS PO SCH (09:58)
[2018-07-26] MEDS: VIMPAT PO SCH ×2 (09:59→20:49)
[2018-07-26] MEDS: JANUVIA PO SCH (09:59)
[2018-07-26] MEDS: NORVASC PO SCH (09:59)
[2018-07-26] MEDS: SEROQUEL PO SCH ×2 (09:59→20:48)
[2018-07-26] MEDS: ASPIRIN PO SCH (09:59)
[2018-07-26] MEDS: CULTURELLE FOR KIDS PO SCH ×3 (09:59→16:30)
[2018-07-26] MEDS: APRESOLINE PO SCH ×3 (09:59→16:31)
[2018-07-26] MEDS: COLACE PO SCH (10:00)
[2018-07-26] MEDS: TOPROL XL PO SCH (10:01)
[2018-07-26] MEDS: VICTOZA SUBQ SCH (10:01)
[2018-07-26] MEDS: BASAGLAR SUBQ SCH (10:01)
[2018-07-26] MEDS: PRINIVIL PO SCH ×2 (10:03→20:48)
--- NOTE | 2018-07-26 19:14 | PROGRESS NOTE ---
DATE: 07/26/2018 SUBJECTIVE: Patient with no complaints. PHYSICAL: Vital Signs: Reviewed. Patient is in no respiratory distress. She currently is afebrile. Pulse in the 80s, blood pressure 170s over 70s. Blood sugars currently 125 to 279. Physical unchanged. ASSESSMENT: 1. Diabetes. 2. Recent seizures. 3. Hypertension. PLAN: Will continue patient in the hospital, continue treating symptomatically until which time patient can transition to rehab. cc: Ricky Daley MD
[2018-07-26] MEDS: LIPITOR PO SCH (20:48)
[2018-07-27] MEDS: HUMALOG (PARKWAY) SUBQ SCH ×4 (06:44→21:15)
[2018-07-27] MEDS: ASPIRIN PO SCH (08:18)
[2018-07-27] MEDS: NORVASC PO SCH (08:18)
[2018-07-27] MEDS: TOPROL XL PO SCH (08:18)
[2018-07-27] MEDS: PRINIVIL PO SCH ×2 (08:18→21:15)
[2018-07-27] MEDS: JANUVIA PO SCH (08:19)
[2018-07-27] MEDS: CULTURELLE FOR KIDS PO SCH ×3 (08:19→21:22)
[2018-07-27] MEDS: ACTOS PO SCH (08:20)
[2018-07-27] MEDS: APRESOLINE PO SCH ×3 (08:21→21:21)
[2018-07-27] MEDS: VIMPAT PO SCH ×2 (08:21→21:15)
[2018-07-27] MEDS: COLACE PO SCH (08:21)
[2018-07-27] MEDS: SEROQUEL PO SCH ×2 (08:21→21:15)
[2018-07-27] MEDS: BASAGLAR SUBQ SCH (10:30)
[2018-07-27] MEDS: VICTOZA SUBQ SCH (10:30)
--- NOTE | 2018-07-27 18:12 | PROGRESS NOTE ---
DATE: 07/27/2018 SUBJECTIVE: Patient has no major complaints. She is lying in bed. OBJECTIVE: Blood pressure 156/66, heart rate 71, respiratory 18, temperature 97.8 degrees, 100% on room air.Cardiovascular: Regular rate and rhythm. Pulmonary: Bilateral breath sounds. Clear to auscultation. GI: Soft, nontender, nondistended. Bowel sounds are positive. Sugar 148. PROBLEM LIST: 1. Diabetes fairly brittle diabetic but blood sugars are at least the last 5 days have been 140s to 200s. I am a little leery of altering it because she does tend to get hypoglycemic very quickly. 2. Seizure disorder. She is on Vimpat. 3. Hypertension is overall well controlled 156/66 is acceptable for her age. DISPOSITION: We are waiting on placement which may happen soon hopefully. cc: Zachery Bill MD
[2018-07-27] MEDS: LIPITOR PO SCH (21:15)
[2018-07-28] MEDS: JANUVIA PO SCH (10:58)
[2018-07-28] MEDS: PRINIVIL PO SCH (10:58)
[2018-07-28] MEDS: SEROQUEL PO SCH (10:58)
[2018-07-28] MEDS: APRESOLINE PO SCH ×3 (10:58→18:23)
[2018-07-28] MEDS: COLACE PO SCH (10:58)
[2018-07-28] MEDS: CULTURELLE FOR KIDS PO SCH ×3 (10:58→18:23)
[2018-07-28] MEDS: ACTOS PO SCH (10:58)
[2018-07-28] MEDS: VIMPAT PO SCH (10:58)
[2018-07-28] MEDS: TOPROL XL PO SCH (10:58)
[2018-07-28] MEDS: HUMALOG (PARKWAY) SUBQ SCH ×3 (10:59→18:22)
[2018-07-28] MEDS: NORVASC PO SCH (10:59)
[2018-07-28] MEDS: ASPIRIN PO SCH (10:59)
--- NOTE | 2018-07-28 15:31 | PROGRESS NOTE ---
DATE: 07/28/2018 SUBJECTIVE: Patient has no major complaints. She is sleeping quietly. OBJECTIVE: Vital Signs: Blood pressure is 165/77, heart rate of 80, respiratory rate 18, temperature 98.7, 100% on room air. Cardiovascular: Regular rate and rhythm. Pulmonary: Bilateral breath sounds. Clear to auscultation. Gastrointestinal: Soft, nontender, nondistended. Bowel sounds were positive. LABORATORY DATA: Sugars 270, 371. Mostly sugars in the 100s. She did have a low this morning of 57 and that was with just her regular medications. PROBLEM LIST: 1. Type 2 diabetes not well controlled. We will continue Lantus and follow closely. 2. Seizure disorder. She is on Vimpat. 3. Hypertension. Stable for her age. We will keep an eye on that. DISPOSITION: Pending resolution of her guardianship/financial status. cc: Zachery Bill MD MTDD
[2018-07-28] MEDS: VICTOZA SUBQ SCH (17:14)
[2018-07-28] MEDS: BASAGLAR SUBQ SCH (17:14)
[2018-07-29] MEDS: HUMALOG (PARKWAY) SUBQ SCH ×5 (00:27→20:57)
[2018-07-29] MEDS: VIMPAT PO SCH ×3 (00:32→20:48)
[2018-07-29] MEDS: SEROQUEL PO SCH ×3 (00:32→20:47)
[2018-07-29] MEDS: LIPITOR PO SCH ×2 (00:32→20:48)
[2018-07-29] MEDS: PRINIVIL PO SCH ×3 (00:32→20:48)
[2018-07-29] MEDS: BASAGLAR SUBQ SCH (11:24)
[2018-07-29] MEDS: ACTOS PO SCH (11:35)
[2018-07-29] MEDS: ASPIRIN PO SCH (11:36)
[2018-07-29] MEDS: COLACE PO SCH (11:36)
[2018-07-29] MEDS: JANUVIA PO SCH (11:36)
[2018-07-29] MEDS: CULTURELLE FOR KIDS PO SCH ×3 (11:36→17:32)
[2018-07-29] MEDS: TOPROL XL PO SCH (11:36)
[2018-07-29] MEDS: VICTOZA SUBQ SCH (11:36)
[2018-07-29] MEDS: NORVASC PO SCH (11:36)
[2018-07-29] MEDS: APRESOLINE PO SCH ×3 (11:36→17:32)
--- NOTE | 2018-07-29 18:14 | PROGRESS NOTE ---
DATE: 07/29/2018 SUBJECTIVE: Patient has no focal complaints. OBJECTIVE: Blood pressure 173/72, heart rate of 85, respiratory rate 18, temperature was 98.2 degrees and 100% on room air.Cardiovascular: Regular rate and rhythm. Pulmonary: Bilateral breath sounds. Clear to auscultation. GI: Soft, nontender, and nondistended. Bowel sounds are positive. LABORATORY DATA: Sugars are 109 to 336. I cannot see any very low sugars today. I am not sure we are concerned that her blood sugar was maybe held, I am going to bump up her Lantus. We do this every couple of weeks I feel like, adjusting, and then she bottoms out. I think her insulin gets held and then she becomes hyperglycemic. It is very difficult to process but overall she has improved. Dementia is stable. No major issues. DISPOSITION: Pending her clinical status. We will continue to follow closely. cc: Zachery Bill MD
[2018-07-30] MEDS: HUMALOG (PARKWAY) SUBQ SCH ×4 (06:53→22:18)
[2018-07-30] MEDS: PRINIVIL PO SCH ×2 (09:37→22:07)
[2018-07-30] MEDS: CULTURELLE FOR KIDS PO SCH ×3 (09:37→16:25)
[2018-07-30] MEDS: NORVASC PO SCH (09:37)
[2018-07-30] MEDS: APRESOLINE PO SCH ×3 (09:37→16:25)
[2018-07-30] MEDS: TOPROL XL PO SCH (09:38)
[2018-07-30] MEDS: COLACE PO SCH (09:38)
[2018-07-30] MEDS: ACTOS PO SCH (09:39)
[2018-07-30] MEDS: JANUVIA PO SCH (09:39)
[2018-07-30] MEDS: SEROQUEL PO SCH ×2 (09:39→22:07)
[2018-07-30] MEDS: VIMPAT PO SCH ×2 (09:40→22:06)
[2018-07-30] MEDS: VICTOZA SUBQ SCH (09:42)
[2018-07-30] MEDS: BASAGLAR SUBQ SCH (09:44)
[2018-07-30] MEDS: ASPIRIN PO SCH (09:51)
--- NOTE | 2018-07-30 12:13 | PROGRESS NOTE ---
DATE: 07/30/2018 SUBJECTIVE: This morning Ms. Bajwa continues to be fairly the same. No acute changes. OBJECTIVE: Vital Signs: Blood pressure is 147/57, pulse is 79, respiration is 18, temperature is 98.3 degrees. General: On physical exam, Ms. Bajwa is an 83-year-old female. She is in bed, in no distress. HEENT: Mucosa is pink and moist. Anicteric. Acyanotic. Neck: The neck is supple. Chest: Good air entry bilaterally. There were no crepitations. No rhonchi. Cardiovascular: Regular rate and rhythm. There are no murmurs, no rubs. No gallops. Abdomen: Soft, nontender. Bowel sounds present. Extremities: No pedal edema. Central Nervous System: The patient is awake, moves all extremities. I am not sure how much she understands. LABORATORY DATA: Glucose is 277. CURRENT MEDICATIONS: Have also been reviewed. ASSESSMENT AND PLAN: 1. Vascular dementia. We will continue with home medications. 2. Seizure disorder, currently controlled. 3. Diabetes mellitus on insulin regimen. 4. Failure to thrive. 5. Social neglect. 6. Hypertension, controlled. 7. Still the patient is pending placement. cc: Daniel Hahn MD
[2018-07-30] MEDS: LIPITOR PO SCH (22:19)
[2018-07-31] MEDS: HUMALOG (PARKWAY) SUBQ SCH ×4 (07:08→21:52)
--- NOTE | 2018-07-31 09:13 | PROGRESS NOTE ---
DATE: 07/31/2018 SUBJECTIVE: The patient denies having any acute issues. OBJECTIVE: VITAL SIGNS: Temperature 97.5 degrees, pulse 80 per minute, respiratory rate 16, blood pressure 142/62. Pulse ox 100% on room air. CARDIORESPIRATORY: First and second heart sounds are audible without any murmurs or gallops. RESPIRATORY: No respiratory distress. Bilateral air entry is good without any rales or rhonchi. GASTROINTESTINAL: Abdomen is benign. IMPRESSION: 1. Type 2 diabetes mellitus. 2. Hypertension. 3. Seizure disorder. 4. Dyslipidemia. 5. Dementia. 6. Social neglect. PLAN: We will continue with current medications. Her overall condition has been stable but unfortunately she is still here at the hospital because of social neglect. The case has been with [facility] and hospital senior ux developer to find a solution for placement in a long-term fpc facility. cc: Hernan Morelos MD
[2018-07-31] MEDS: ACTOS PO SCH (10:14)
[2018-07-31] MEDS: TOPROL XL PO SCH (10:14)
[2018-07-31] MEDS: JANUVIA PO SCH (10:15)
[2018-07-31] MEDS: SEROQUEL PO SCH ×2 (10:15→22:14)
[2018-07-31] MEDS: VIMPAT PO SCH ×2 (10:15→22:13)
[2018-07-31] MEDS: PRINIVIL PO SCH ×2 (10:16→22:15)
[2018-07-31] MEDS: NORVASC PO SCH (10:16)
[2018-07-31] MEDS: APRESOLINE PO SCH ×3 (10:16→22:15)
[2018-07-31] MEDS: ASPIRIN PO SCH (10:16)
[2018-07-31] MEDS: COLACE PO SCH (10:17)
[2018-07-31] MEDS: CULTURELLE FOR KIDS PO SCH ×3 (10:17→22:15)
[2018-07-31] MEDS: BASAGLAR SUBQ SCH (10:17)
[2018-07-31] MEDS: VICTOZA SUBQ SCH (10:18)
[2018-07-31] MEDS: LIPITOR PO SCH (22:13)
[2018-08-01] MEDS: HUMALOG (PARKWAY) SUBQ SCH ×3 (07:42→21:03)
[2018-08-01] MEDS: ACTOS PO SCH (10:10)
[2018-08-01] MEDS: VIMPAT PO SCH ×2 (10:11→20:40)
[2018-08-01] MEDS: NORVASC PO SCH (10:11)
[2018-08-01] MEDS: JANUVIA PO SCH (10:11)
[2018-08-01] MEDS: PRINIVIL PO SCH ×2 (10:11→20:39)
[2018-08-01] MEDS: SEROQUEL PO SCH ×2 (10:11→20:40)
[2018-08-01] MEDS: ASPIRIN PO SCH (10:12)
[2018-08-01] MEDS: APRESOLINE PO SCH ×3 (10:12→20:40)
[2018-08-01] MEDS: CULTURELLE FOR KIDS PO SCH ×3 (10:12→20:26)
[2018-08-01] MEDS: TOPROL XL PO SCH (10:12)
[2018-08-01] MEDS: COLACE PO SCH (10:12)
[2018-08-01] MEDS: VICTOZA SUBQ SCH (10:13)
[2018-08-01] MEDS: BASAGLAR SUBQ SCH (10:13)
--- NOTE | 2018-08-01 11:31 | PROGRESS NOTE ---
DATE: 08/01/2018 SUBJECTIVE: The patient is comfortably lying in bed and has no acute complaints. OBJECTIVE: Vital Signs: Temperature is 98.3 degrees, pulse 73 per minute, respiratory rate 18 per minute, blood pressure 158/78, and pulse ox 100% on room air. General: The patient is awake and alert. She does not appear to be in any acute distress. Cardiovascular System: First and second heart sounds are audible without any murmurs or gallops. Respiratory System: No respiratory distress noted. Bilateral lung air entry is good without any rales or rhonchi. Gastrointestinal System: The abdomen is benign. IMPRESSION: 1. Type 2 diabetes mellitus. 2. Hypertension. 3. Seizure disorder. 4. Dyslipidemia. 5. Dementia. 6. Social neglect. PLAN: The plan is to continue with the current medications. Her overall condition has been stable but unfortunately she will remain here until we figure out her long-term placement. [facility] and hospital metal mockup maker are busy currently finding a solution for placement in a long-term fdc facility. cc: Hernan Morelos MD
[2018-08-01] MEDS: LIPITOR PO SCH (20:40)
[2018-08-02] MEDS: HUMALOG (PARKWAY) SUBQ SCH ×5 (06:09→21:55)
[2018-08-02 09:02] LABS: BASO# 0.02 X1000 (0.0-0.2); BASO% 0.2 % (0.0-0.8); EOS# 0.11 X1000 (0.0-0.7); HEMATOCRIT 33.8 % (37.0-47.0); HEMOGLOBIN 11.1 g/dL (12.0-16.0); IMM GRAN# 0.03 X1000 (0.0-0.04); IMM GRAN% 0.3 % (0.0-0.5); LYMPH# 0.81 X1000 (1.2-3.4); LYMPH% 7.4 % (20.5-51.1); MCHC 32.8 g/dL (33-37); MCV 85.1 FL (81-99); MONO# 0.73 X1000 (0.11-0.59); MONO% 6.6 % (1.7-9.3); MPV 11.2 FL (7.4-10.4); NEUT# 9.29 X1000 (1.4-6.5); NEUT% 84.5 % (42.2-75.2); PLT 268 X1000 (130-400); RBC 3.97 XMIL (4.2-5.4); WBC 10.99 X1000 (4.8-10.8)
[2018-08-02 09:09] LABS: AGAP 11; BUN 15 mg/dL (8-22); CALCIUM 9.3 mg/dL (8.8-10.2); CHLORIDE 105 mmol/L (98-107); COSMO 288; CREATININE 0.6 mg/dL (0.5-0.9); ESTIMATED GFR > 60; GLUCOSE 170 mg/dL (70-104); POTASSIUM 3.5 mmol/L (3.5-5.1); SODIUM 142 mmol/L (136-145); TCO2 26 mmol/L (25-35)
[2018-08-02] MEDS: ACTOS PO SCH (10:37)
[2018-08-02] MEDS: PRINIVIL PO SCH ×2 (10:37→21:57)
[2018-08-02] MEDS: NORVASC PO SCH (10:37)
[2018-08-02] MEDS: APRESOLINE PO SCH ×3 (10:37→21:56)
[2018-08-02] MEDS: CULTURELLE FOR KIDS PO SCH ×3 (10:37→21:56)
[2018-08-02] MEDS: ASPIRIN PO SCH (10:37)
[2018-08-02] MEDS: JANUVIA PO SCH (10:37)
[2018-08-02] MEDS: COLACE PO SCH (10:38)
[2018-08-02] MEDS: TOPROL XL PO SCH (10:38)
[2018-08-02] MEDS: VIMPAT PO SCH ×2 (10:38→21:57)
[2018-08-02] MEDS: SEROQUEL PO SCH ×2 (10:38→21:57)
[2018-08-02] MEDS: BASAGLAR SUBQ SCH (10:39)
[2018-08-02] MEDS: VICTOZA SUBQ SCH (10:39)
--- NOTE | 2018-08-02 11:31 | PROGRESS NOTE ---
DATE: 08/02/2018 SUBJECTIVE: The patient denies having any acute complaints this morning. She did have possible seizure activity last night during which she bit her tongue, but is not having any issues anymore. OBJECTIVE: Vital Signs: Temperature 97.5 degrees, pulse 91 per minute, respiratory rate 16 per minute, blood pressure 185/91, pulse oximetry 100% on room air. General: Patient is awake and does not appear to be in any acute distress. Cardiovascular System: First and second heart sounds are audible without any murmurs or gallops. Respiratory System: No respiratory distress noted. Bilateral lung air entry is good without any rales or rhonchi. Gastrointestinal: Abdomen is soft and nondistended. Normal bowel sounds are present. DIAGNOSTIC DATA: CBC shows WBC count of 10.99. The rest of the CBC is nondiagnostic. Chemistry showed glucose levels of 170. The rest of the basic metabolic panel was within normal limits. IMPRESSION: 1. Type 2 diabetes mellitus. 2. Hypertension. 3. Seizure disorder. 4. Dyslipidemia. 5. Dementia. 6. Social neglect. PLAN: We will continue with current medications. Her blood pressure has been fluctuating but it does go back to near normal level when she is resting well. Her overall condition has been stable, but unfortunately she will remain here until we find a solution for long-term placement. The hospital supervisor polishing and social media specialist, along with R are busy currently finding a solution because of financial issues. cc: Hernan Morelos MD
[2018-08-02] MEDS: LIPITOR PO SCH (21:57)
[2018-08-03] MEDS: HUMALOG (PARKWAY) SUBQ SCH ×4 (06:06→22:02)
[2018-08-03] MEDS: ASPIRIN PO SCH (08:21)
[2018-08-03] MEDS: JANUVIA PO SCH (08:21)
[2018-08-03] MEDS: CULTURELLE FOR KIDS PO SCH ×3 (08:21→17:31)
[2018-08-03] MEDS: VIMPAT PO SCH ×2 (08:21→22:01)
[2018-08-03] MEDS: COLACE PO SCH (08:21)
[2018-08-03] MEDS: ACTOS PO SCH (08:21)
[2018-08-03] MEDS: SEROQUEL PO SCH ×2 (08:21→22:01)
[2018-08-03] MEDS: TOPROL XL PO SCH (08:22)
[2018-08-03] MEDS: NORVASC PO SCH (08:22)
[2018-08-03] MEDS: APRESOLINE PO SCH ×3 (08:22→17:30)
[2018-08-03] MEDS: VICTOZA SUBQ SCH (08:23)
[2018-08-03] MEDS: BASAGLAR SUBQ SCH (08:23)
[2018-08-03] MEDS: PRINIVIL PO SCH ×2 (08:25→22:01)
[2018-08-03] MEDS: LIPITOR PO SCH (22:01)
--- NOTE | 2018-08-03 22:58 | PROGRESS NOTE ---
DATE: 08/03/2018 CHIEF COMPLAINT: The patient is more vocal and more confused today than usual. PHYSICAL EXAMINATION: Vital Signs: Temperature 97.2, pulse 73, respiratory rate 20, blood pressure 150/68. General: The patient is much more vocal today than she has been in the last several weeks. She is much more confused, disoriented as well. HEENT: Normocephalic. Neck: Supple. Cardiovascular: Regular rate. Chest clear, nonlabored. Abdomen: Soft. Extremities: Moves all extremities. Neurologic: No changes. ASSESSMENT: 1. Acute metabolic encephalopathy. We will check a urinalysis, as she very likely has a urinary tract infection. We will go ahead and start on antibiotics. 2. Type 2 diabetes. 3. Hypertension. 4. Seizure disorder. 5. Dementia. PLAN: We will continue patient in the hospital, continue treatment symptomatically as needed. cc: Ricky Daley MD
[2018-08-03] MEDS: INSTA-GLUCOSE PO PRN (23:23)
[2018-08-04] MEDS: HUMALOG (PARKWAY) SUBQ SCH ×4 (06:41→21:31)
[2018-08-04] MEDS: TOPROL XL PO SCH (09:44)
[2018-08-04] MEDS: CULTURELLE FOR KIDS PO SCH ×4 (09:44→17:15)
[2018-08-04] MEDS: APRESOLINE PO SCH ×4 (09:44→17:15)
[2018-08-04] MEDS: PRINIVIL PO SCH ×2 (09:44→21:46)
[2018-08-04] MEDS: COLACE PO SCH (09:44)
[2018-08-04] MEDS: JANUVIA PO SCH (09:44)
[2018-08-04] MEDS: ACTOS PO SCH (09:44)
[2018-08-04] MEDS: VIMPAT PO SCH ×2 (09:44→21:46)
[2018-08-04] MEDS: NORVASC PO SCH (09:44)
[2018-08-04] MEDS: SEROQUEL PO SCH ×2 (09:44→21:46)
[2018-08-04] MEDS: ASPIRIN PO SCH (09:44)
[2018-08-04] MEDS: VICTOZA SUBQ SCH (09:45)
[2018-08-04] MEDS: BASAGLAR SUBQ SCH (11:04)
[2018-08-04] MEDS: LIPITOR PO SCH (21:46)
--- NOTE | 2018-08-04 23:26 | PROGRESS NOTE ---
DATE: 08/04/2018 SUBJECTIVE: Patient is much more calm today. OBJECTIVE/PHYSICAL EXAMINATION: Vital Signs: Reviewed. BP is elevated 178/71. Blood sugars 68 to 490. General: Patient is in no current distress. PLAN: We will continue patient in the hospital, continue antibiotics until culture is negative. Continue symptomatic treatment as well as chronic care until she can transition to further long- term care. cc: Ricky Daley MD
[2018-08-05] MEDS: HUMALOG (PARKWAY) SUBQ SCH ×4 (06:09→22:05)
[2018-08-05] MEDS: BASAGLAR SUBQ SCH (10:43)
[2018-08-05] MEDS: CULTURELLE FOR KIDS PO SCH ×3 (10:44→22:05)
[2018-08-05] MEDS: JANUVIA PO SCH (10:45)
[2018-08-05] MEDS: ASPIRIN PO SCH (10:45)
[2018-08-05] MEDS: SEROQUEL PO SCH ×2 (10:45→22:05)
[2018-08-05] MEDS: NORVASC PO SCH (10:45)
[2018-08-05] MEDS: VIMPAT PO SCH ×2 (10:45→22:05)
[2018-08-05] MEDS: COLACE PO SCH (10:46)
[2018-08-05] MEDS: APRESOLINE PO SCH ×3 (10:46→22:05)
[2018-08-05] MEDS: TOPROL XL PO SCH (10:46)
[2018-08-05] MEDS: ACTOS PO SCH (10:47)
[2018-08-05] MEDS: PRINIVIL PO SCH ×2 (10:47→22:05)
[2018-08-05] MEDS: VICTOZA SUBQ SCH (10:48)
[2018-08-05] MEDS: LIPITOR PO SCH (22:05)
--- NOTE | 2018-08-06 02:37 | PROGRESS NOTE ---
DATE: 08/05/2018 SUBJECTIVE: No current changes. Patient is much more calm than she was a few days ago. PHYSICAL EXAMINATION: Vital Signs: Reviewed. She is afebrile. Blood pressure 154/68. General: Patient is awake, alert, currently in no distress. Neck: Supple. Cardiovascular: Regular rate. Chest: Clear. ASSESSMENT: 1. Gram-positive cocci urinary tract infection. 2. Type 2 diabetes. 3. Hypertension. 4. Seizures. 5. Dementia. 6. Social neglect. PLAN: We will continue patient in the hospital. Her blood sugars continue to be very erratic as if she eats they are noted to be in the low 70s to 80s. If she does not eat, they are noted to be in the 200 range when she starts eating. cc: Ricky Daley MD
[2018-08-06] MEDS: HUMALOG (PARKWAY) SUBQ SCH ×3 (06:24→18:54)
[2018-08-06] MEDS: SEROQUEL PO SCH ×2 (10:23→20:53)
[2018-08-06] MEDS: ASPIRIN PO SCH (10:23)
[2018-08-06] MEDS: APRESOLINE PO SCH ×3 (10:24→13:48)
[2018-08-06] MEDS: JANUVIA PO SCH (10:24)
[2018-08-06] MEDS: PRINIVIL PO SCH ×2 (10:24→20:53)
[2018-08-06] MEDS: TOPROL XL PO SCH (10:24)
[2018-08-06] MEDS: VIMPAT PO SCH ×2 (10:24→20:53)
[2018-08-06] MEDS: NORVASC PO SCH (10:24)
[2018-08-06] MEDS: COLACE PO SCH (10:24)
[2018-08-06] MEDS: CULTURELLE FOR KIDS PO SCH ×3 (10:24→13:50)
[2018-08-06] MEDS: ACTOS PO SCH (10:25)
[2018-08-06] MEDS: VICTOZA SUBQ SCH (10:34)
[2018-08-06] MEDS: BASAGLAR SUBQ SCH (10:34)
[2018-08-06] MEDS: MACROBID PO SCH ×2 (13:49→20:53)
[2018-08-06] MEDS: LIPITOR PO SCH (20:53)
--- NOTE | 2018-08-07 00:14 | PROGRESS NOTE ---
DATE: 08/06/2018 SUBJECTIVE: Patient seen and examined. No current complaints. PHYSICAL EXAMINATION: Vital Signs: She is afebrile. Vital signs are stable. Physical exam unchanged. ASSESSMENT: Urinary tract infection. The patient certainly may be colonized at this point as her last 3 urinary tract infections have been the same. We will place her on Macrobid twice a day and then consider leaving her on Macrobid daily. cc: Ricky Daley MD
[2018-08-07] MEDS: HUMALOG (PARKWAY) SUBQ SCH ×6 (06:21→23:27)
[2018-08-07] MEDS: APRESOLINE PO SCH ×4 (06:23→16:38)
[2018-08-07] MEDS: CULTURELLE FOR KIDS PO SCH ×4 (06:24→16:38)
[2018-08-07] MEDS: PRINIVIL PO SCH ×2 (11:15→20:24)
[2018-08-07] MEDS: COLACE PO SCH (11:15)
[2018-08-07] MEDS: MACROBID PO SCH ×2 (11:15→20:24)
[2018-08-07] MEDS: VIMPAT PO SCH ×2 (11:15→20:24)
[2018-08-07] MEDS: ASPIRIN PO SCH (11:15)
[2018-08-07] MEDS: ACTOS PO SCH (11:15)
[2018-08-07] MEDS: TOPROL XL PO SCH (11:15)
[2018-08-07] MEDS: SEROQUEL PO SCH ×2 (11:16→20:24)
[2018-08-07] MEDS: JANUVIA PO SCH (11:16)
[2018-08-07] MEDS: BASAGLAR SUBQ SCH (11:16)
[2018-08-07] MEDS: NORVASC PO SCH (11:16)
[2018-08-07] MEDS: VICTOZA SUBQ SCH (11:17)
[2018-08-07] MEDS: LIPITOR PO SCH (20:24)
[2018-08-08] MEDS: HUMALOG (PARKWAY) SUBQ SCH ×3 (07:36→19:37)
[2018-08-08] MEDS: MACROBID PO SCH ×2 (10:59→21:31)
[2018-08-08] MEDS: COLACE PO SCH (10:59)
[2018-08-08] MEDS: ACTOS PO SCH (10:59)
[2018-08-08] MEDS: PRINIVIL PO SCH (11:00)
[2018-08-08] MEDS: NORVASC PO SCH (11:00)
[2018-08-08] MEDS: VIMPAT PO SCH ×2 (11:00→21:31)
[2018-08-08] MEDS: TOPROL XL PO SCH (11:00)
[2018-08-08] MEDS: APRESOLINE PO SCH ×3 (11:00→18:02)
[2018-08-08] MEDS: SEROQUEL PO SCH ×2 (11:00→21:31)
[2018-08-08] MEDS: ASPIRIN PO SCH (11:01)
[2018-08-08] MEDS: CULTURELLE FOR KIDS PO SCH ×3 (11:01→18:02)
[2018-08-08] MEDS: BASAGLAR SUBQ SCH (11:02)
[2018-08-08] MEDS: JANUVIA PO SCH (11:02)
[2018-08-08] MEDS: VICTOZA SUBQ SCH (13:41)
--- NOTE | 2018-08-08 14:48 | PROGRESS NOTE ---
DATE: 08/08/2018 SUBJECTIVE: Patient has no complaints. OBJECTIVE: Vital Signs: Reviewed. Blood pressure is elevated today. Physical exam is unchanged. PLAN: We will continue patient on antibiotics. Currently, she has Enterococcus in her urine. Blood sugars were elevated most of the day yesterday. Given her history of dramatic swings down into the 40s and 50s, we will not increase medication currently. We will continue sliding scale and follow. cc: Ricky Daley MD
[2018-08-08] MEDS: LIPITOR PO SCH (21:31)
[2018-08-09] MEDS: HUMALOG (PARKWAY) SUBQ SCH ×5 (00:09→20:38)
[2018-08-09] MEDS: GEODON IM PRN (00:13)
[2018-08-09] MEDS: STERILE WATER INJ. INJ PRN (00:13)
[2018-08-09] MEDS: PRINIVIL PO SCH ×3 (06:49→20:29)
[2018-08-09 06:58] LABS: BASO# 0.02 X1000 (0.0-0.2); BASO% 0.3 % (0.0-0.8); EOS# 0.07 X1000 (0.0-0.7); HEMATOCRIT 34.3 % (37.0-47.0); HEMOGLOBIN 10.9 g/dL (12.0-16.0); IMM GRAN# 0.04 X1000 (0.0-0.04); IMM GRAN% 0.6 % (0.0-0.5); LYMPH# 1.46 X1000 (1.2-3.4); LYMPH% 21.2 % (20.5-51.1); MCH 27.2 PG (27-31); MCHC 31.8 g/dL (33-37); MCV 85.5 FL (81-99); MONO# 0.91 X1000 (0.11-0.59); MONO% 13.2 % (1.7-9.3); MPV 11.4 FL (7.4-10.4); NEUT# 4.38 X1000 (1.4-6.5); NEUT% 63.7 % (42.2-75.2); PLT 285 X1000 (130-400); RBC 4.01 XMIL (4.2-5.4); RDW 14.9 % (11.5-14.5); WBC 6.88 X1000 (4.8-10.8)
[2018-08-09 07:32] LABS: AGAP 14; ALBUMIN 3.4 g/dL (3.5-5.0); ALKALINE PHOSPHATASE 105 U/L (32-104); BUN 22 mg/dL (8-22); CALCIUM 9.6 mg/dL (8.8-10.2); CHLORIDE 100 mmol/L (98-107); COSMO 296; CREATININE 0.8 mg/dL (0.5-0.9); ESTIMATED GFR > 60; GLUCOSE 341 mg/dL (70-104); GOT 15 U/L (10-30); GPT 14 U/L (10-36); SODIUM 140 mmol/L (136-145); TCO2 26 mmol/L (25-35); TOTAL BILIRUBIN < 0.15 mg/dL (0.20-1.00)
--- NOTE | 2018-08-09 08:42 | PROGRESS NOTE ---
DATE: 08/09/2018 SUBJECTIVE: No complaints. PHYSICAL EXAMINATION: Vital Signs: Reviewed. Blood pressure stable. Blood sugars between 68 and 350. ASSESSMENT: 1. Enterococcus urinary tract infection, on Macrobid. We will continue twice a day for the next 4 days, and then change to once a day. 2. Type 2 diabetes. 3. Hypertension. 4. History of seizure disorder. 5. Dyslipidemia. 6. Dementia. 7. Social neglect. PLAN: Will continue to await long-term placement via [facility]. We will continue to treat her blood sugar symptomatically. We will not increase her long-acting insulin, as she frequently has blood sugars down to the 50s and 60s. cc: Ricky Daley MD
[2018-08-09] MEDS: CULTURELLE FOR KIDS PO SCH ×3 (09:30→17:12)
[2018-08-09] MEDS: SEROQUEL PO SCH ×2 (09:33→20:29)
[2018-08-09] MEDS: COLACE PO SCH (09:33)
[2018-08-09] MEDS: TOPROL XL PO SCH (09:33)
[2018-08-09] MEDS: MACROBID PO SCH ×2 (09:34→20:29)
[2018-08-09] MEDS: APRESOLINE PO SCH ×2 (09:34→13:43)
[2018-08-09] MEDS: JANUVIA PO SCH (09:34)
[2018-08-09] MEDS: ACTOS PO SCH (09:34)
[2018-08-09] MEDS: ASPIRIN PO SCH (09:34)
[2018-08-09] MEDS: BASAGLAR SUBQ SCH (09:44)
[2018-08-09] MEDS: NORVASC PO SCH (09:45)
[2018-08-09] MEDS: VIMPAT PO SCH ×2 (09:52→20:29)
[2018-08-09] MEDS: VICTOZA SUBQ SCH (09:53)
[2018-08-09] MEDS: LIPITOR PO SCH (20:29)
--- NOTE | 2018-08-10 04:13 | PROGRESS NOTE ---
DATE: 08/07/2018 SUBJECTIVE: Patient seen and examined. Full note dictated and discussed with nurse practitioner. OBJECTIVE: She is afebrile. Blood pressure is 146/61. Blood sugars are stable. She is in no distress. ASSESSMENT: 1. Enterococcus urinary tract infection. 2. Type 2 diabetes. 3. Hypertension. 4. Seizure disorder. PLAN: We will continue the patient in the hospital on Macrodantin twice a day for 7 days and then once a day, as it does appear that she is colonized with enterococcus. cc: Ricky Daley MD
[2018-08-10] MEDS: HUMALOG (PARKWAY) SUBQ SCH ×4 (06:08→23:22)
[2018-08-10] MEDS: APRESOLINE PO SCH ×5 (07:26→17:09)
[2018-08-10] MEDS: ASPIRIN PO SCH ×2 (09:50→11:55)
[2018-08-10] MEDS: MACROBID PO SCH ×2 (09:50→11:55)
[2018-08-10] MEDS: CULTURELLE FOR KIDS PO SCH ×3 (09:50→17:10)
[2018-08-10] MEDS: JANUVIA PO SCH ×2 (09:50→11:55)
[2018-08-10] MEDS: SEROQUEL PO SCH ×3 (09:50→21:43)
[2018-08-10] MEDS: COLACE PO SCH ×2 (09:50→11:55)
[2018-08-10] MEDS: TOPROL XL PO SCH ×2 (09:50→11:55)
[2018-08-10] MEDS: NORVASC PO SCH ×2 (09:50→11:54)
[2018-08-10] MEDS: ACTOS PO SCH ×2 (09:50→11:54)
[2018-08-10] MEDS: VIMPAT PO SCH ×3 (09:50→21:43)
[2018-08-10] MEDS: PRINIVIL PO SCH ×3 (09:50→21:44)
[2018-08-10] MEDS: BASAGLAR SUBQ SCH ×2 (09:51→11:55)
[2018-08-10] MEDS: VICTOZA SUBQ SCH ×2 (09:51→11:55)
--- NOTE | 2018-08-10 20:27 | PROGRESS NOTE ---
DATE: 08/10/2018 SUBJECTIVE: Patient has no focal complaints. The patient is stable. She seems a little bit more with it, but she also seems a little bit more angry. OBJECTIVE: Vital Signs: Blood pressure 136/68, heart rate 77, respiratory 16, temperature 97.2, 97 percent on room air. Cardiovascular: Regular rate and rhythm. Pulmonary: Bilateral breath sounds. Clear to auscultation. GI: Soft, nontender, nondistended. Bowel sounds are positive. PROBLEM LIST: 1. Type 2 diabetes. Blood sugars are overall well controlled. She is still very labile. Her blood sugar went up to 500, but that has been several days though. The last sugars have been 107, which is good, to 280, which were pretty good for her, so I am just going to kind of watch her. She is very brittle. 2. E coli urinary tract infection. She is on Macrobid. She has a persistent infection. I do not think she has got a catheter anymore. The patient is very stable. cc: Zachery Bill MD [facility]
[2018-08-10] MEDS: AMOXIL PO SCH (21:44)
[2018-08-10] MEDS: LIPITOR PO SCH (21:44)
[2018-08-11] MEDS: HUMALOG (PARKWAY) SUBQ SCH ×4 (07:21→22:36)
[2018-08-11] MEDS: NORVASC PO SCH (08:45)
[2018-08-11] MEDS: PRINIVIL PO SCH ×2 (08:45→22:04)
[2018-08-11] MEDS: COLACE PO SCH (08:45)
[2018-08-11] MEDS: CULTURELLE FOR KIDS PO SCH ×3 (08:45→17:21)
[2018-08-11] MEDS: ACTOS PO SCH (08:45)
[2018-08-11] MEDS: SEROQUEL PO SCH ×2 (08:45→22:04)
[2018-08-11] MEDS: JANUVIA PO SCH (08:45)
[2018-08-11] MEDS: AMOXIL PO SCH ×2 (08:45→22:03)
[2018-08-11] MEDS: TOPROL XL PO SCH (08:45)
[2018-08-11] MEDS: APRESOLINE PO SCH ×3 (08:45→17:21)
[2018-08-11] MEDS: VIMPAT PO SCH ×2 (08:45→22:03)
[2018-08-11] MEDS: ASPIRIN PO SCH (08:45)
[2018-08-11] MEDS: BASAGLAR SUBQ SCH (08:51)
[2018-08-11] MEDS: VICTOZA SUBQ SCH (08:51)
[2018-08-11] MEDS: TYLENOL PO PRN (18:38)
--- NOTE | 2018-08-11 18:52 | PROGRESS NOTE ---
DATE: 08/10/2018 SUBJECTIVE: Blood pressure is stable. OBJECTIVE: The patient is stable. LABORATORY DATA: No new data today. Sugars have been stable. ASSESSMENT AND PLAN: 1. Dementia, with vascular disturbance. She seems to be doing okay from that standpoint on current medications. 2. Type 2 diabetes. Her blood sugars are still labile. Overall, fair control although she still has some ones in the 400 range, although since yesterday mostly in the 300 range. 3. Seizure disorder. She seems to be stable on her current medications. DISPOSITION: Still waiting on long-term placement and guardianship. cc: Zachery Bill MD
[2018-08-11] MEDS: LIPITOR PO SCH (22:04)
[2018-08-12] MEDS: HUMALOG (PARKWAY) SUBQ SCH ×4 (07:39→22:37)
[2018-08-12] MEDS: PRINIVIL PO SCH ×2 (08:42→22:36)
[2018-08-12] MEDS: VIMPAT PO SCH ×2 (08:42→22:37)
[2018-08-12] MEDS: JANUVIA PO SCH (08:42)
[2018-08-12] MEDS: ACTOS PO SCH (08:42)
[2018-08-12] MEDS: ASPIRIN PO SCH (08:42)
[2018-08-12] MEDS: NORVASC PO SCH (08:42)
[2018-08-12] MEDS: SEROQUEL PO SCH ×2 (08:42→22:35)
[2018-08-12] MEDS: COLACE PO SCH (08:42)
[2018-08-12] MEDS: CULTURELLE FOR KIDS PO SCH ×3 (08:42→17:00)
[2018-08-12] MEDS: APRESOLINE PO SCH ×3 (08:42→17:00)
[2018-08-12] MEDS: TOPROL XL PO SCH (08:42)
[2018-08-12] MEDS: AMOXIL PO SCH ×2 (08:43→22:36)
[2018-08-12] MEDS: VICTOZA SUBQ SCH (08:43)
[2018-08-12] MEDS: BASAGLAR SUBQ SCH (08:44)
--- NOTE | 2018-08-12 18:33 | PROGRESS NOTE ---
DATE: 08/12/2018 SUBJECTIVE: The last couple of days she seems just a little bit more with it to me. It is perhaps wishful thinking, but she does not seem quite as confused. OBJECTIVE: Vital signs: Blood pressure 165/92, heart rate 78, respiratory rate 16, temperature 97.7 degrees, 98% on room air. Cardiovascular: Regular rate and rhythm. Pulmonary: Bilateral breath sounds. Clear to auscultation. GI: Soft, nontender, nondistended. Bowel sounds are positive. LABORATORY DATA: Her white count is 6. Sugars have been better. PROBLEM LIST: 1. Diabetes. Overall well controlled. Seems to be stable. 2. Dementia is slowly improving. 3. Seizures. Stable on current medications. 4. Urinary tract infection. She is on amoxicillin. She started on the . I will probably continue that for 7 days. She had Enterococcus. DISPOSITION: We are still waiting on placement. cc: Zachery Bill MD
[2018-08-12] MEDS: LIPITOR PO SCH (22:36)
[2018-08-13] MEDS: HUMALOG (PARKWAY) SUBQ SCH ×3 (06:37→19:23)
[2018-08-13] MEDS: VIMPAT PO SCH ×2 (08:50→21:28)
[2018-08-13] MEDS: AMOXIL PO SCH ×2 (08:51→21:30)
[2018-08-13] MEDS: NORVASC PO SCH (08:51)
[2018-08-13] MEDS: COLACE PO SCH (08:51)
[2018-08-13] MEDS: PRINIVIL PO SCH ×2 (08:51→21:27)
[2018-08-13] MEDS: ACTOS PO SCH (08:51)
[2018-08-13] MEDS: JANUVIA PO SCH (08:51)
[2018-08-13] MEDS: APRESOLINE PO SCH ×3 (08:51→16:59)
[2018-08-13] MEDS: SEROQUEL PO SCH ×2 (08:51→21:27)
[2018-08-13] MEDS: ASPIRIN PO SCH (08:51)
[2018-08-13] MEDS: TOPROL XL PO SCH (08:51)
[2018-08-13] MEDS: CULTURELLE FOR KIDS PO SCH ×3 (08:52→16:59)
[2018-08-13] MEDS: BASAGLAR SUBQ SCH (09:42)
[2018-08-13] MEDS: VICTOZA SUBQ SCH (09:42)
--- NOTE | 2018-08-13 17:01 | PROGRESS NOTE ---
DATE: 08/13/2018 SUBJECTIVE: The patient has no focal complaints. OBJECTIVE: Blood pressure 134/95, heart rate of 92, respiratory rate is 16, temperature 97.7 degrees, 98% on room air. Cardiovascular: Regular rate and rhythm. Pulmonary: Bilateral breath sounds, clear to auscultation. GI: Soft, nontender, nondistended. Bowel sounds were positive. LABORATORY DATA: I do not have any new data. Sugars have been pretty good: 167, 122, 225. PROBLEM LIST: 1. Diabetes, stable on current medications. She is on Lantus at 35 units daily, Victoza 1.8 daily, Actos 30 daily, Januvia 100 daily. I think we have pretty good control now. 2. Hypertension. Appears to be controlled on current regimen. 3. Enterococcus urinary tract infection, sensitive to amoxicillin. She will complete a 7-day course of that. Discharge condition pending guardianship and long-term placement. cc: Zachery Bill MD
[2018-08-13] MEDS: LIPITOR PO SCH (21:27)
[2018-08-13] MEDS: MIRALAX PO PRN (21:27)
[2018-08-14] MEDS: HUMALOG (PARKWAY) SUBQ SCH ×5 (01:36→20:23)
[2018-08-14] MEDS: AMOXIL PO SCH ×2 (10:31→20:22)
[2018-08-14] MEDS: VIMPAT PO SCH ×2 (10:31→20:22)
[2018-08-14] MEDS: PRINIVIL PO SCH ×2 (10:32→20:22)
[2018-08-14] MEDS: ASPIRIN PO SCH (10:32)
[2018-08-14] MEDS: ACTOS PO SCH (10:32)
[2018-08-14] MEDS: APRESOLINE PO SCH ×3 (10:32→17:39)
[2018-08-14] MEDS: JANUVIA PO SCH (10:32)
[2018-08-14] MEDS: COLACE PO SCH (10:32)
[2018-08-14] MEDS: SEROQUEL PO SCH ×2 (10:32→20:22)
[2018-08-14] MEDS: TOPROL XL PO SCH (10:32)
[2018-08-14] MEDS: CULTURELLE FOR KIDS PO SCH ×3 (10:32→17:40)
[2018-08-14] MEDS: NORVASC PO SCH (10:32)
[2018-08-14] MEDS: VICTOZA SUBQ SCH (10:33)
[2018-08-14] MEDS: BASAGLAR SUBQ SCH (10:33)
--- NOTE | 2018-08-14 17:39 | PROGRESS NOTE ---
DATE: 08/14/2018 SUBJECTIVE: The patient has no major complaints. OBJECTIVE: Blood pressure is 147/65, heart rate 93, respiratory rate 20, temperature 98.1 degrees. Cardiovascular: Regular rate and rhythm. Pulmonary: Bilateral breath sounds, clear to auscultation. GI was soft, nontender, nondistended. Bowel sounds were positive. LABORATORY DATA: Sugars have been 122, 221, 208. Overall improved. ASSESSMENT AND PLAN: 1. Diabetes. We will continue her regular medication. She seems to be fairly adequately controlled. 2. Disposition pending her clinical status. Overall she is improved. cc: Zachery Bill MD
[2018-08-14] MEDS: LIPITOR PO SCH (20:22)
[2018-08-15] MEDS: HUMALOG (PARKWAY) SUBQ SCH ×4 (06:22→22:04)
[2018-08-15] MEDS: SEROQUEL PO SCH ×2 (09:28→22:03)
[2018-08-15] MEDS: CULTURELLE FOR KIDS PO SCH ×3 (09:28→16:46)
[2018-08-15] MEDS: VIMPAT PO SCH ×2 (09:29→22:03)
[2018-08-15] MEDS: APRESOLINE PO SCH ×3 (09:29→16:46)
[2018-08-15] MEDS: JANUVIA PO SCH (09:29)
[2018-08-15] MEDS: TOPROL XL PO SCH (09:29)
[2018-08-15] MEDS: ACTOS PO SCH (09:30)
[2018-08-15] MEDS: COLACE PO SCH (09:30)
[2018-08-15] MEDS: AMOXIL PO SCH ×2 (09:30→22:03)
[2018-08-15] MEDS: ASPIRIN PO SCH (09:30)
[2018-08-15] MEDS: PRINIVIL PO SCH ×2 (09:30→22:03)
[2018-08-15] MEDS: NORVASC PO SCH (09:30)
[2018-08-15] MEDS: BASAGLAR SUBQ SCH (09:31)
[2018-08-15] MEDS: VICTOZA SUBQ SCH (09:32)
--- NOTE | 2018-08-15 19:45 | PROGRESS NOTE ---
DATE: 08/15/2018 SUBJECTIVE: Patient has no major complaints. OBJECTIVE: Blood pressure is 123/53, heart rate of 87, respiratory rate 18, temperature 97.7 degrees, 100% on room air.Cardiovascular: Regular rate and rhythm. Pulmonary: Bilateral breath sounds. Clear to auscultation. GI: Soft, nontender, nondistended. Bowel sounds are positive. LABORATORY DATA: Her white count is we do not have any data except blood sugars 166- 221. PROBLEM LIST: 1. Type 2 diabetes. She is stable currently. 2. Enterococcal urinary tract infection. She is on amoxicillin until the 4th. She seems to be stable. 3. Dementia. She is kind a up or down on her good days and bad days, we just have to kind of see how things go overall. cc: Zachery Bill MD [facility]
[2018-08-15] MEDS: LIPITOR PO SCH (22:03)
[2018-08-16] MEDS: HUMALOG (PARKWAY) SUBQ SCH ×4 (06:03→21:01)
[2018-08-16] MEDS: CULTURELLE FOR KIDS PO SCH ×3 (09:12→17:49)
[2018-08-16] MEDS: AMOXIL PO SCH ×2 (09:12→20:55)
[2018-08-16] MEDS: ACTOS PO SCH (09:12)
[2018-08-16] MEDS: SEROQUEL PO SCH ×2 (09:12→20:54)
[2018-08-16] MEDS: JANUVIA PO SCH (09:13)
[2018-08-16] MEDS: TOPROL XL PO SCH (09:13)
[2018-08-16] MEDS: VIMPAT PO SCH ×2 (09:13→20:55)
[2018-08-16] MEDS: PRINIVIL PO SCH ×2 (09:13→20:55)
[2018-08-16] MEDS: NORVASC PO SCH (09:13)
[2018-08-16] MEDS: APRESOLINE PO SCH ×4 (09:13→17:58)
[2018-08-16] MEDS: COLACE PO SCH (09:13)
[2018-08-16] MEDS: ASPIRIN PO SCH (09:13)
[2018-08-16] MEDS: BASAGLAR SUBQ SCH (09:14)
[2018-08-16] MEDS: VICTOZA SUBQ SCH (09:15)
--- NOTE | 2018-08-16 17:23 | PROGRESS NOTE ---
DATE: 08/16/2018 SUBJECTIVE: She is a little bit more recalcitrant today. I am not sure what is going on with her. She is not as friendly as she has been previously. OBJECTIVE: Cardiovascular: Regular rate and rhythm. Pulmonary: Bilateral breath sounds clear to auscultation. Gastrointestinal: Soft, nontender, nondistended. Bowel sounds are positive. LABORATORY DATA: She has had a couple low blood. Sugars she had a 52. She had an 89 this morning. She had a 52 two days ago. The rest of her sugars have been elevated. PROBLEM LIST: 1. Type 2 diabetes. She is very brittle, very fluctuant. I am just going to leave her on her current medications. 2. Enterococcal urinary tract infection. It is sensitive to ampicillin, so she is on amoxicillin through tomorrow. That will complete her course. 3. Dementia. She is on chronic medications. DISPOSITION: Pending her clinical status, so we will just kind of keep an eye out on things associated with her. cc: Zachery Bill MD
[2018-08-16] MEDS: LIPITOR PO SCH (20:56)
[2018-08-17] MEDS: HUMALOG (PARKWAY) SUBQ SCH ×3 (06:07→17:38)
[2018-08-17] MEDS: CULTURELLE FOR KIDS PO SCH ×3 (09:26→17:38)
[2018-08-17] MEDS: VIMPAT PO SCH ×2 (09:27→23:01)
[2018-08-17] MEDS: AMOXIL PO SCH (09:27)
[2018-08-17] MEDS: ASPIRIN PO SCH (09:28)
[2018-08-17] MEDS: JANUVIA PO SCH (09:28)
[2018-08-17] MEDS: COLACE PO SCH (09:28)
[2018-08-17] MEDS: TOPROL XL PO SCH (09:28)
[2018-08-17] MEDS: NORVASC PO SCH (09:28)
[2018-08-17] MEDS: PRINIVIL PO SCH ×2 (09:28→23:02)
[2018-08-17] MEDS: APRESOLINE PO SCH ×5 (09:28→17:38)
[2018-08-17] MEDS: SEROQUEL PO SCH ×2 (09:28→23:02)
[2018-08-17] MEDS: ACTOS PO SCH (09:31)
[2018-08-17] MEDS: VICTOZA SUBQ SCH (09:33)
[2018-08-17] MEDS: BASAGLAR SUBQ SCH (09:33)
--- NOTE | 2018-08-17 22:26 | PROGRESS NOTE ---
DATE: 08/17/2018 SUBJECTIVE: Patient has no new complaints. She is lying in bed. She is in no distress. OBJECTIVE: Vital signs: Temperature 98.4 degrees, pulse 78, respiratory rate 20, BP 170/69. General: Patient is awake, alert. She is in no current distress. Physical is unchanged. ASSESSMENT: 1. Type 2 diabetes. 2. Pneumococcal urinary tract infection to continue amoxicillin. 3. Dementia. PLAN: We will stop her amoxicillin. We will place her on Macrobid once daily and will follow. cc: Ricky Daley MD
[2018-08-17] MEDS: LIPITOR PO SCH (23:09)
[2018-08-18] MEDS: HUMALOG (PARKWAY) SUBQ SCH ×4 (03:20→16:16)
[2018-08-18] MEDS: TOPROL XL PO SCH (09:31)
[2018-08-18] MEDS: SEROQUEL PO SCH ×2 (09:31→23:38)
[2018-08-18] MEDS: VIMPAT PO SCH ×2 (09:31→23:37)
[2018-08-18] MEDS: MACROBID PO SCH (09:31)
[2018-08-18] MEDS: ACTOS PO SCH (09:31)
[2018-08-18] MEDS: VICTOZA SUBQ SCH (09:31)
[2018-08-18] MEDS: PRINIVIL PO SCH ×2 (09:31→23:37)
[2018-08-18] MEDS: COLACE PO SCH (09:31)
[2018-08-18] MEDS: CULTURELLE FOR KIDS PO SCH ×3 (09:31→18:00)
[2018-08-18] MEDS: APRESOLINE PO SCH ×3 (09:31→17:59)
[2018-08-18] MEDS: JANUVIA PO SCH (09:31)
[2018-08-18] MEDS: NORVASC PO SCH (09:31)
[2018-08-18] MEDS: ASPIRIN PO SCH (09:31)
[2018-08-18] MEDS: BASAGLAR SUBQ SCH (09:37)
--- NOTE | 2018-08-18 23:25 | PROGRESS NOTE ---
DATE: 08/18/2018 SUBJECTIVE: No new complaints. OBJECTIVE: Vital Signs: Reviewed and stable. Blood pressure is elevated 170/70, blood sugars 50 to 197. Physical exam is unchanged. ASSESSMENT AND PLAN: 1. Type 2 diabetes. 2. Enterococcal urinary tract infection. We will stop her antibiotics. We will continue her on Macrobid daily and follow. cc: Ricky Daley MD
[2018-08-18] MEDS: LIPITOR PO SCH (23:37)
[2018-08-19] MEDS: HUMALOG (PARKWAY) SUBQ SCH ×5 (01:28→17:07)
--- NOTE | 2018-08-19 07:37 | Diag Imaging Result Doc PS360 ---
EXAM: CHEST-PORTABLE HISTORY: dyspnea TECHNIQUE: Portable chest single view COMPARISON: 04/22/2018 FINDINGS: The lungs are well expanded. The heart is borderline mildly prominent. The vessels are not distended. There are no infiltrates. No effusion identified. A shunt catheter overlies the left neck and right chest. IMPRESSION: Mildly prominent heart. Electronically signed by Gabe Devlin 08/19/2018 7:34 AM
[2018-08-19] MEDS: COLACE PO SCH (09:37)
[2018-08-19] MEDS: APRESOLINE PO SCH ×3 (09:37→17:44)
[2018-08-19] MEDS: PRINIVIL PO SCH ×2 (09:37→21:12)
[2018-08-19] MEDS: JANUVIA PO SCH (09:37)
[2018-08-19] MEDS: NORVASC PO SCH (09:37)
[2018-08-19] MEDS: SEROQUEL PO SCH ×2 (09:37→21:12)
[2018-08-19] MEDS: TOPROL XL PO SCH (09:37)
[2018-08-19] MEDS: MACROBID PO SCH (09:37)
[2018-08-19] MEDS: ASPIRIN PO SCH (09:37)
[2018-08-19] MEDS: CULTURELLE FOR KIDS PO SCH ×3 (09:38→17:45)
[2018-08-19] MEDS: ACTOS PO SCH (09:38)
[2018-08-19] MEDS: BASAGLAR SUBQ SCH (09:38)
[2018-08-19] MEDS: VIMPAT PO SCH ×2 (09:47→21:11)
[2018-08-19] MEDS: VICTOZA SUBQ SCH (09:52)
[2018-08-19] MEDS: LIPITOR PO SCH (21:10)
--- NOTE | 2018-08-19 22:05 | PROGRESS NOTE ---
DATE: 08/19/2018 SUBJECTIVE: Patient without any new complaints. OBJECTIVE: Vital Signs: Reviewed. She is afebrile. Her weight has fluctuated greatly, although this has been on bed scale and most likely inaccurate. PLAN: We will continue patient in the hospital until long-term care can be arranged. We will continue Macrobid for prophylaxis for her enterococcal urinary tract infection and will follow. cc: Ricky Daley MD
[2018-08-20] MEDS: HUMALOG (PARKWAY) SUBQ SCH ×5 (02:07→22:55)
[2018-08-20] MEDS: CULTURELLE FOR KIDS PO SCH ×4 (11:14→17:13)
[2018-08-20] MEDS: COLACE PO SCH (11:14)
[2018-08-20] MEDS: VIMPAT PO SCH ×2 (11:15→22:56)
[2018-08-20] MEDS: NORVASC PO SCH (11:15)
[2018-08-20] MEDS: ASPIRIN PO SCH (11:15)
[2018-08-20] MEDS: TOPROL XL PO SCH (11:16)
[2018-08-20] MEDS: MACROBID PO SCH (11:16)
[2018-08-20] MEDS: JANUVIA PO SCH (11:16)
[2018-08-20] MEDS: ACTOS PO SCH (11:16)
[2018-08-20] MEDS: SEROQUEL PO SCH ×2 (11:16→22:56)
[2018-08-20] MEDS: APRESOLINE PO SCH ×3 (11:17→22:56)
[2018-08-20] MEDS: VICTOZA SUBQ SCH (11:19)
[2018-08-20] MEDS: BASAGLAR SUBQ SCH (11:19)
[2018-08-20] MEDS: PRINIVIL PO SCH ×2 (11:20→22:56)
[2018-08-20] MEDS: LIPITOR PO SCH (22:56)
--- NOTE | 2018-08-20 23:31 | PROGRESS NOTE ---
DATE: 08/20/2018 SUBJECTIVE: Patient seen and examined. No current new complaints. No new changes. PHYSICAL EXAMINATION: Vital signs: Reviewed. No new changes in physical exam. ASSESSMENT AND PLAN: The patient continues to reside in [place] until she is able to transition to further long-term care. cc: Ricky Daley MD
[2018-08-21] MEDS: HUMALOG (PARKWAY) SUBQ SCH ×4 (06:25→20:14)
[2018-08-21] MEDS: APRESOLINE PO SCH ×3 (12:15→20:14)
[2018-08-21] MEDS: PRINIVIL PO SCH ×2 (12:15→20:06)
[2018-08-21] MEDS: SEROQUEL PO SCH ×2 (12:15→20:05)
[2018-08-21] MEDS: VIMPAT PO SCH ×2 (12:15→20:05)
[2018-08-21] MEDS: INSTA-GLUCOSE PO PRN (12:51)
[2018-08-21] MEDS: ASPIRIN PO SCH (15:03)
[2018-08-21] MEDS: COLACE PO SCH (15:09)
[2018-08-21] MEDS: BASAGLAR SUBQ SCH (15:09)
[2018-08-21] MEDS: NORVASC PO SCH (15:10)
[2018-08-21] MEDS: JANUVIA PO SCH (15:10)
[2018-08-21] MEDS: MACROBID PO SCH (15:10)
[2018-08-21] MEDS: CULTURELLE FOR KIDS PO SCH ×3 (15:10→16:55)
[2018-08-21] MEDS: VICTOZA SUBQ SCH (15:11)
[2018-08-21] MEDS: TOPROL XL PO SCH (15:11)
[2018-08-21] MEDS: LIPITOR PO SCH (20:05)
--- NOTE | 2018-08-21 23:25 | PROGRESS NOTE ---
DATE: 08/21/2018 SUBJECTIVE: The patient this morning was having some swelling in the hands and feet, more so than usual. This afternoon, unfortunately she is having projectile vomiting, abdominal pain, cramping and diarrhea. There have been other patients with very similar symptoms this week. OBJECTIVE: Vital signs reviewed. Temperature 97.6 degrees, pulse 90, respiratory rate 18, BP 171/73. General: The patient is awake. She is in no current respiratory distress. HEENT: Normocephalic. Neck supple. CV: Regular rate. Chest clear, nonlabored. Abdomen soft, nondistended. Extremities: Moves all extremities. ASSESSMENT: 1. Viral gastroenteritis. 2. Hypertension. 3. Diabetes. 4. Enterococcal urinary tract infection, currently on Macrobid. 5. Dementia. PLAN: We will continue the patient in the hospital. Continue to await placement. Currently we will continue her on IV fluids. Stop her Lasix, and follow. cc: Ricky Daley MD
[2018-08-22] MEDS: HUMALOG (PARKWAY) SUBQ SCH ×4 (06:31→21:48)
[2018-08-22] MEDS: VIMPAT PO SCH ×2 (11:55→21:47)
[2018-08-22] MEDS: APRESOLINE PO SCH ×3 (11:56→16:52)
[2018-08-22] MEDS: ASPIRIN PO SCH (11:56)
[2018-08-22] MEDS: VICTOZA SUBQ SCH ×2 (11:56)
[2018-08-22] MEDS: CULTURELLE FOR KIDS PO SCH ×3 (11:57→16:52)
[2018-08-22] MEDS: MACROBID PO SCH (11:57)
[2018-08-22] MEDS: JANUVIA PO SCH (11:57)
[2018-08-22] MEDS: COLACE PO SCH (11:57)
[2018-08-22] MEDS: NORVASC PO SCH (11:57)
[2018-08-22] MEDS: SEROQUEL PO SCH ×2 (11:58→21:47)
[2018-08-22] MEDS: PRINIVIL PO SCH ×2 (11:58→21:47)
[2018-08-22] MEDS: TOPROL XL PO SCH (11:58)
--- NOTE | 2018-08-22 20:13 | PROGRESS NOTE ---
DATE: 08/22/2018 SUBJECTIVE: Patient currently in no distress. Her vomiting and diarrhea appear to have improved. PHYSICAL EXAMINATION: Vital Signs: Reviewed. Temperature 99 degrees, pulse 106, respiratory 16, BP 141/67. General: The patient is awake. She is in no distress. HEENT: Normocephalic. Neck: Supple. CARDIOVASCULAR: Regular rate. Chest: Clear. Abdomen: Soft. ASSESSMENT: 1. Likely viral gastroenteritis. Appears improved. 2. Diabetes. Blood sugar has actually been fairly stable over the past 24 hours, 150 to 200. 3. Hypertension. 4. Seizure disorder. 5. Adult failure to thrive. PLAN: We will continue the patient in the hospital. Continue to follow, treat symptomatically, and await ability to discharge. cc: Ricky Daley MD
[2018-08-22] MEDS: LIPITOR PO SCH (21:47)
[2018-08-23] MEDS: HUMALOG (PARKWAY) SUBQ SCH ×3 (08:07→16:04)
[2018-08-23] MEDS: MACROBID PO SCH (09:31)
[2018-08-23] MEDS: SEROQUEL PO SCH ×2 (09:31→20:33)
[2018-08-23] MEDS: ASPIRIN PO SCH (09:31)
[2018-08-23] MEDS: VIMPAT PO SCH ×2 (09:31→20:33)
[2018-08-23] MEDS: CULTURELLE FOR KIDS PO SCH ×3 (09:32→17:04)
[2018-08-23] MEDS: COLACE PO SCH (09:32)
[2018-08-23] MEDS: TOPROL XL PO SCH (09:32)
[2018-08-23] MEDS: NORVASC PO SCH (09:32)
[2018-08-23] MEDS: APRESOLINE PO SCH ×3 (09:32→17:04)
[2018-08-23] MEDS: PRINIVIL PO SCH ×2 (09:32→20:33)
[2018-08-23] MEDS: JANUVIA PO SCH (09:32)
[2018-08-23] MEDS: VICTOZA SUBQ SCH (09:33)
--- NOTE | 2018-08-23 13:48 | PROGRESS NOTE ---
DATE: 08/23/2018 SUBJECTIVE: Patient has no complaints this morning. She is awake and very talkative. PHYSICAL EXAMINATION: Vital Signs; Temperature 97.9, pulse 96, respiratory rate 18, BP 178/75. Blood sugars elevated today in the upper 200 to 300s. Physical unchanged. She is awake, alert, very talkative. She is in no distress. Cardiovascular: Regular rate. Chest: Clear. Extremities: Edema has improved. ASSESSMENT: 1. Type 2 diabetes. Her blood sugar is elevated today. We did stop her Actos which certainly could be the cause of her blood sugar elevations. Her Actos was stopped due to edema. Unsure if the Actos was the cause. Certainly could consider rechallenging her versus starting her on Jardiance. 2. Hypertension. Blood pressures are elevated. We will not increase her hydralazine to 50 three times a day as blood pressure has been elevated for the last several weeks. 3. Dementia. PLAN: We will continue to await her transition to long-term care. cc: Ricky Daley MD
[2018-08-23] MEDS: INSTA-GLUCOSE PO PRN (17:45)
[2018-08-23] MEDS: LIPITOR PO SCH (20:50)
[2018-08-24] MEDS: HUMALOG (PARKWAY) SUBQ SCH ×5 (05:15→21:34)
[2018-08-24] MEDS: CULTURELLE FOR KIDS PO SCH ×3 (11:06→17:52)
[2018-08-24] MEDS: ASPIRIN PO SCH (11:06)
[2018-08-24] MEDS: SEROQUEL PO SCH ×2 (11:06→21:35)
[2018-08-24] MEDS: NORVASC PO SCH (11:07)
[2018-08-24] MEDS: VIMPAT PO SCH ×2 (11:07→21:35)
[2018-08-24] MEDS: TOPROL XL PO SCH (11:07)
[2018-08-24] MEDS: PRINIVIL PO SCH ×2 (11:07→21:35)
[2018-08-24] MEDS: ACTOS PO SCH (11:08)
[2018-08-24] MEDS: JANUVIA PO SCH (11:08)
[2018-08-24] MEDS: APRESOLINE PO SCH ×3 (11:09→17:53)
[2018-08-24] MEDS: VICTOZA SUBQ SCH (11:09)
[2018-08-24] MEDS: COLACE PO SCH (11:09)
[2018-08-24] MEDS: BASAGLAR SUBQ SCH (11:09)
[2018-08-24] MEDS: MACROBID PO SCH (11:09)
--- NOTE | 2018-08-24 11:55 | PROGRESS NOTE ---
DATE: 08/24/2018 SUBJECTIVE: The patient has no major complaints. OBJECTIVE: Vitals: Blood pressure is 144/65, heart rate 86, respiratory rate 16, temperature 98.2 degrees, 97% on room air. Cardiovascular: Regular rate and rhythm. Pulmonary: Bilateral breath sounds. Clear to auscultation. GI: Soft, nontender, nondistended. Bowel sounds are positive. LABORATORY DATA: She has no data today. 174, 230 blood sugars. PROBLEM LIST: 1. Type 2 diabetes appears to be stable. Edi notes says that Actos was stopped, but it was not, at least it has been ordered since August 06 according to the orders. I think I did stop it before that, but it has been resumed. Her sugars are very brittle. 2. Hypertension. Blood pressure is stable. Again, our goal in her would be in the 150s. 3. Dementia, stable on current medications. DISPOSITION: Pending her clinical status. She is still to have long-term help. cc: Zachery Bill MD
[2018-08-24] MEDS: MIRALAX PO SCH (14:26)
[2018-08-24] MEDS: LIPITOR PO SCH (21:35)
[2018-08-25] MEDS: HUMALOG (PARKWAY) SUBQ SCH ×5 (06:17→22:33)
[2018-08-25] MEDS: NORVASC PO SCH (08:15)
[2018-08-25] MEDS: VIMPAT PO SCH ×2 (08:15→22:31)
[2018-08-25] MEDS: ASPIRIN PO SCH (08:15)
[2018-08-25] MEDS: COLACE PO SCH (08:15)
[2018-08-25] MEDS: APRESOLINE PO SCH ×3 (08:15→17:23)
[2018-08-25] MEDS: MACROBID PO SCH (08:15)
[2018-08-25] MEDS: JANUVIA PO SCH (08:15)
[2018-08-25] MEDS: ACTOS PO SCH (08:15)
[2018-08-25] MEDS: SEROQUEL PO SCH ×2 (08:15→22:31)
[2018-08-25] MEDS: TOPROL XL PO SCH (08:15)
[2018-08-25] MEDS: PRINIVIL PO SCH ×2 (08:16→22:10)
[2018-08-25] MEDS: BASAGLAR SUBQ SCH (08:16)
[2018-08-25] MEDS: CULTURELLE FOR KIDS PO SCH ×3 (08:16→17:23)
[2018-08-25] MEDS: MIRALAX PO SCH (08:16)
[2018-08-25] MEDS: VICTOZA SUBQ SCH (08:16)
--- NOTE | 2018-08-25 14:28 | PROGRESS NOTE ---
DATE: 08/25/2018 SUBJECTIVE: Patient has no major complaints. OBJECTIVE: Vital Signs: Blood pressure 183/82, heart rate is 79, respiratory rate 18, temperature 97.6 degrees, 98% on room air. Cardiovascular: Regular rate and rhythm. Pulmonary: Bilateral breath sounds clear to auscultation. GI: Soft, nontender, nondistended. Bowel sounds were positive. Laboratory Data: Sugars 311, 230, 297, 433 so still not under great control, unfortunately. PROBLEM LIST: 1. Type 2 diabetes. She has really been on the same regimen for a bit. I do not think there have been any changes on her sugar medications since the end of July. I am not sure. Previous adjustments have led to intermittent hypoglycemia but I think there is a mixture there. Also, sometimes the medicines get held because the sugar is felt to be too low and then the patient is uncovered or without coverage for 12 to 24 hours. Then the sugar gets high and there are some issues. Although today, it looks like got the Lantus, has gotten Victoza, has gotten Actos which was not discontinued, has gotten Januvia. I am going to bump up her Lantus just a hair. Hopefully, that will be just up to 38. We will see how she does. 2. Hypertension. Appears to be stable for her age and risk factors, although it is a bit on the high side but average is stable. 3. Dementia. She is controlled on her current medications. DISPOSITION: We are still waiting on guardianship, financial control over her issues, and we will see how she does long-term. cc: Zachery Bill MD
[2018-08-25] MEDS: LIPITOR PO SCH (22:32)
[2018-08-26] MEDS: HUMALOG (PARKWAY) SUBQ SCH ×4 (06:39→21:41)
[2018-08-26] MEDS: APRESOLINE PO SCH ×3 (10:03→17:12)
[2018-08-26] MEDS: ACTOS PO SCH (10:03)
[2018-08-26] MEDS: SEROQUEL PO SCH ×2 (10:03→21:41)
[2018-08-26] MEDS: PRINIVIL PO SCH ×2 (10:04→21:41)
[2018-08-26] MEDS: CULTURELLE FOR KIDS PO SCH ×3 (10:04→17:12)
[2018-08-26] MEDS: COLACE PO SCH (10:04)
[2018-08-26] MEDS: VIMPAT PO SCH ×2 (10:04→21:46)
[2018-08-26] MEDS: MACROBID PO SCH (10:04)
[2018-08-26] MEDS: MIRALAX PO SCH (10:04)
[2018-08-26] MEDS: ASPIRIN PO SCH (10:04)
[2018-08-26] MEDS: NORVASC PO SCH (10:04)
[2018-08-26] MEDS: JANUVIA PO SCH (10:05)
[2018-08-26] MEDS: TOPROL XL PO SCH (10:05)
[2018-08-26] MEDS: VICTOZA SUBQ SCH (10:05)
--- NOTE | 2018-08-26 11:22 | PROGRESS NOTE ---
DATE: 08/26/2018 SUBJECTIVE: The patient has no major complaints. She seems pleasantly confused. She does not seem very agitated today, as compared to previous days. OBJECTIVE: Vital signs: Blood pressure 152/59, heart rate of 85, respiratory rate 18, temperature 97.5 degrees, 98% on room air. Cardiovascular: Regular rate and rhythm. Pulmonary: Bilateral breath sounds clear to auscultation. Gastrointestinal: Soft, nontender, nondistended. Bowel sounds are positive. LABORATORY DATA: Sugars on average have been in the 200s. She did have one that was 427; that was last evening or yesterday evening. PROBLEMS: 1. Diabetes, which is still not greatly controlled. She has been on a slightly increased dose of Lantus. I think I am going to bump her up again, just go to a clear 40 a day and see how she does. 2. Dementia. Appears to be overall controlled on current medications. 3. Hypertension. She is on multiple agents, but 152/59 I think is acceptable for control at her age and with her risk factors and comorbidities. DISPOSITION: Pending clinical placement. cc: Zachery Bill MD
[2018-08-26] MEDS: LIPITOR PO SCH (21:41)
[2018-08-27] MEDS: HUMALOG (PARKWAY) SUBQ SCH ×4 (06:43→20:02)
[2018-08-27] MEDS: SEROQUEL PO SCH ×3 (09:00→20:02)
[2018-08-27] MEDS: NORVASC PO SCH (09:59)
[2018-08-27] MEDS: PRINIVIL PO SCH ×3 (09:59→20:02)
[2018-08-27] MEDS: MACROBID PO SCH (09:59)
[2018-08-27] MEDS: ASPIRIN PO SCH (09:59)
[2018-08-27] MEDS: MIRALAX PO SCH (09:59)
[2018-08-27] MEDS: COLACE PO SCH (09:59)
[2018-08-27] MEDS: CULTURELLE FOR KIDS PO SCH ×3 (09:59→17:05)
[2018-08-27] MEDS: TOPROL XL PO SCH (09:59)
[2018-08-27] MEDS: VIMPAT PO SCH ×3 (09:59→20:03)
[2018-08-27] MEDS: ACTOS PO SCH (10:00)
[2018-08-27] MEDS: BASAGLAR SUBQ SCH (10:00)
[2018-08-27] MEDS: VICTOZA SUBQ SCH (10:00)
[2018-08-27] MEDS: APRESOLINE PO SCH ×3 (10:00→17:05)
[2018-08-27] MEDS: JANUVIA PO SCH (10:01)
--- NOTE | 2018-08-27 16:30 | PROGRESS NOTE ---
DATE: 08/27/2018 SUBJECTIVE: Patient has no major complaints. OBJECTIVE: Vital Signs: Blood pressure is 164/69, heart rate of 85, respiratory rate 18, temperature 97.9 degrees, satting 97% on room air. Cardiovascular: Regular rate and rhythm. Pulmonary: Bilateral breath sounds. Clear to auscultation. GI: Soft, nontender, nondistended. Bowel sounds are positive. Extremity Exam: No clubbing or cyanosis. Lymphatic Exam: No peripheral edema. Neurological Exam: Nonfocal. LABORATORY DATA: Sugars have been up and down, 66 thought today. PROBLEM LIST: 1. Diabetes. We will continue to monitor. We have increased her Lantus a little bit and now she has had a little bit of hypoglycemia. 2. Dementia. She seems to be stable. 3. Hypertension. We will continue her medications. 4. Disposition: Pending guardianship. We will continue to follow closely. cc: Zachery Bill MD
[2018-08-27] MEDS: LIPITOR PO SCH ×2 (19:06→20:02)
--- NOTE | 2018-08-28 09:06 | PROGRESS NOTE ---
DATE: 08/28/2018 SUBJECTIVE: The patient appears to be in good mood and no acute complaints are reported. OBJECTIVE: Vital Signs: Temperature 97.7 degrees, pulse 85 per minute, respiratory rate 18 per minute, blood pressure 133/71, and pulse oximetry 99% on room air. General: Patient is awake and does not appear to be in any acute distress. Cardiovascular: First and second heart sounds are audible without any murmurs or gallops. Respiratory: No respiratory distress noted. Bilateral lung air entry is good without any rales or rhonchi. Gastrointestinal: Abdomen is benign. IMPRESSION: 1. Type 2 diabetes mellitus. 2. Hypertension. 3. Seizure disorder. 4. Dyslipidemia. 5. Dementia. PLAN: We will continue with her current medications. Her condition has been stable medically, but we are still waiting for long-term placement. Once the guardianship issue is resolved, and she finds placement we will discharge her. cc: Hernan Morelos MD
[2018-08-28] MEDS: HUMALOG (PARKWAY) SUBQ SCH ×4 (09:15→21:13)
[2018-08-28] MEDS: APRESOLINE PO SCH ×3 (09:16→18:24)
[2018-08-28] MEDS: TOPROL XL PO SCH (09:16)
[2018-08-28] MEDS: COLACE PO SCH (09:16)
[2018-08-28] MEDS: SEROQUEL PO SCH ×2 (09:16→21:12)
[2018-08-28] MEDS: NORVASC PO SCH (09:16)
[2018-08-28] MEDS: ASPIRIN PO SCH (09:16)
[2018-08-28] MEDS: PRINIVIL PO SCH ×2 (09:16→21:12)
[2018-08-28] MEDS: JANUVIA PO SCH (09:17)
[2018-08-28] MEDS: ACTOS PO SCH (09:17)
[2018-08-28] MEDS: VIMPAT PO SCH ×2 (09:17→21:12)
[2018-08-28] MEDS: MIRALAX PO SCH (09:17)
[2018-08-28] MEDS: VICTOZA SUBQ SCH (09:18)
[2018-08-28] MEDS: CULTURELLE FOR KIDS PO SCH ×3 (09:18→18:24)
[2018-08-28] MEDS: BASAGLAR SUBQ SCH (09:19)
[2018-08-28] MEDS: LIPITOR PO SCH (21:12)
[2018-08-29] MEDS: HUMALOG (PARKWAY) SUBQ SCH ×4 (06:02→20:04)
--- NOTE | 2018-08-29 10:24 | PROGRESS NOTE ---
DATE: 08/29/2018 SUBJECTIVE: Patient denies having any acute issues and feels to be in a good mood today. OBJECTIVE: Vital Signs: Temperature 97.5 degrees, pulse is 87 per minute, respiratory rate 16 per minute, blood pressure 126/63, pulse oximetry 100% on room air. General: Patient is awake and does not appear to be in any acute distress. Cardiovascular System: First and second heart sounds are audible without any murmurs or gallops. Respiratory System: No respiratory distress noted. Bilateral lung air entry is good without any rales or rhonchi. Gastrointestinal System: Abdomen is benign. IMPRESSION: 1. Type 2 diabetes mellitus. 2. Hypertension. 3. Seizure disorder. 4. Dyslipidemia. 5. Dementia. 6. Social neglect. PLAN: We will continue her current medications. She is medically stable, but has been having issue with guardianship. Once we resolve her issue of long-term placement, she will be discharged. cc: Hernan Morelos MD
[2018-08-29] MEDS: ACTOS PO SCH (10:30)
[2018-08-29] MEDS: MIRALAX PO SCH (10:30)
[2018-08-29] MEDS: APRESOLINE PO SCH ×3 (10:30→18:13)
[2018-08-29] MEDS: TOPROL XL PO SCH (10:30)
[2018-08-29] MEDS: COLACE PO SCH (10:30)
[2018-08-29] MEDS: PRINIVIL PO SCH ×2 (10:30→19:56)
[2018-08-29] MEDS: SEROQUEL PO SCH ×2 (10:31→19:55)
[2018-08-29] MEDS: ASPIRIN PO SCH (10:31)
[2018-08-29] MEDS: JANUVIA PO SCH (10:31)
[2018-08-29] MEDS: VIMPAT PO SCH ×2 (10:31→19:55)
[2018-08-29] MEDS: NORVASC PO SCH (10:31)
[2018-08-29] MEDS: CULTURELLE FOR KIDS PO SCH ×3 (10:31→18:14)
[2018-08-29] MEDS: BASAGLAR SUBQ SCH (10:32)
[2018-08-29] MEDS: VICTOZA SUBQ SCH (10:33)
[2018-08-29] MEDS: LIPITOR PO SCH (19:56)
[2018-08-30] MEDS: SEROQUEL PO SCH ×3 (00:20→20:49)
[2018-08-30] MEDS: LIPITOR PO SCH ×2 (00:20→20:49)
[2018-08-30] MEDS: PRINIVIL PO SCH ×3 (00:20→20:49)
[2018-08-30] MEDS: VIMPAT PO SCH ×3 (00:20→20:49)
[2018-08-30] MEDS: HUMALOG (PARKWAY) SUBQ SCH ×4 (07:08→20:50)
[2018-08-30] MEDS: ASPIRIN PO SCH (08:08)
[2018-08-30] MEDS: JANUVIA PO SCH (08:08)
[2018-08-30] MEDS: COLACE PO SCH (08:09)
[2018-08-30] MEDS: CULTURELLE FOR KIDS PO SCH ×3 (08:09→16:04)
[2018-08-30] MEDS: APRESOLINE PO SCH ×3 (08:09→16:04)
[2018-08-30] MEDS: TOPROL XL PO SCH (08:09)
[2018-08-30] MEDS: MIRALAX PO SCH (08:09)
[2018-08-30] MEDS: NORVASC PO SCH (08:09)
--- NOTE | 2018-08-30 09:57 | PROGRESS NOTE ---
DATE: 08/30/2018 SUBJECTIVE: The patient denies having any acute complaints, and is in a good mood today. OBJECTIVE: Vital Signs: Temperature 97.8 degrees, pulse 79 per minute, respiratory rate 18 per minute, blood pressure 151/83, pulse oximetry 100% on room air. General: The patient is alert and awake. She does not appear to be in any acute distress. Cardiovascular: First and second heart sounds are audible without any murmurs or gallops. Respiratory: Bilateral lung air entry is good without any rales or rhonchi. Gastrointestinal: Abdomen is soft and nondistended. It is nontender on palpation, and normal bowel sounds are present. IMPRESSION: 1. Type 2 diabetes mellitus. 2. Hypertension. 3. Seizure disorder. 4. Dyslipidemia. 5. Dementia. 6. Social neglect. PLAN: The patient will be continued on her current medications. Her overall medical condition has been stable, but we are still waiting for long-term placement because of guardianship issues. Once those issues are resolved, she will be transferred to the long-term facility. cc: Hernan Morelos MD
[2018-08-30] MEDS: BASAGLAR SUBQ SCH (10:20)
[2018-08-30] MEDS: VICTOZA SUBQ SCH (10:20)
[2018-08-30] MEDS: ACTOS PO SCH (10:20)
[2018-08-31] MEDS: HUMALOG (PARKWAY) SUBQ SCH ×4 (08:20→20:53)
[2018-08-31] MEDS: BASAGLAR SUBQ SCH (10:22)
[2018-08-31] MEDS: VICTOZA SUBQ SCH (10:22)
[2018-08-31] MEDS: APRESOLINE PO SCH ×3 (10:23→18:14)
[2018-08-31] MEDS: CULTURELLE FOR KIDS PO SCH ×3 (10:23→18:14)
[2018-08-31] MEDS: NORVASC PO SCH (10:23)
[2018-08-31] MEDS: SEROQUEL PO SCH ×2 (10:23→22:12)
[2018-08-31] MEDS: JANUVIA PO SCH (10:23)
[2018-08-31] MEDS: ASPIRIN PO SCH (10:24)
[2018-08-31] MEDS: VIMPAT PO SCH ×2 (10:24→22:12)
[2018-08-31] MEDS: PRINIVIL PO SCH ×2 (10:25→22:11)
[2018-08-31] MEDS: COLACE PO SCH (10:25)
[2018-08-31] MEDS: TOPROL XL PO SCH (10:25)
[2018-08-31] MEDS: ACTOS PO SCH (10:25)
[2018-08-31] MEDS: MIRALAX PO SCH (10:25)
--- NOTE | 2018-08-31 15:00 | PROGRESS NOTE ---
DATE: 08/31/2018 SUBJECTIVE: No complaints. OBJECTIVE: Vital Signs: Reviewed. BP 140/62. Blood sugars 127-348. General: Patient is in no distress. She is lying in the bed. Physical exam is unchanged. ASSESSMENT: 1. Type 2 diabetes. 2. Hypertension. 3. Seizure disorder. 4. Dyslipidemia. 5. Dementia. 6. Social neglect. PLAN: We will continue patient in the hospital. We restarted her Actos without any worsening of her edema. We will continue to follow and await the ability to transfer to long-term care. cc: Ricky Daley MD
[2018-08-31] MEDS: LIPITOR PO SCH (22:11)
[2018-09-01 06:37] LABS: HEMATOCRIT 29.9 % (37.0-47.0); HEMOGLOBIN 9.4 g/dL (12.0-16.0); MCH 26.6 PG (27-31); MCHC 31.4 g/dL (33-37); MCV 84.7 FL (81-99); MPV 10.9 FL (7.4-10.4); RBC 3.53 XMIL (4.2-5.4); WBC 7.55 X1000 (4.8-10.8)
[2018-09-01] MEDS: HUMALOG (PARKWAY) SUBQ SCH ×4 (06:44→22:16)
[2018-09-01 07:06] LABS: AGAP 13; BUN 18 mg/dL (8-22); CALCIUM 8.4 mg/dL (8.8-10.2); CHLORIDE 106 mmol/L (98-107); COSMO 287; CREATININE 0.6 mg/dL (0.5-0.9); ESTIMATED GFR > 60; GLUCOSE 173 mg/dL (70-104); POTASSIUM 4.6 mmol/L (3.5-5.1); SODIUM 141 mmol/L (136-145); TCO2 23 mmol/L (25-35)
[2018-09-01] MEDS: BASAGLAR SUBQ SCH (11:26)
[2018-09-01] MEDS: VICTOZA SUBQ SCH (11:26)
[2018-09-01] MEDS: ASPIRIN PO SCH (11:27)
[2018-09-01] MEDS: PRINIVIL PO SCH ×2 (11:27→22:16)
[2018-09-01] MEDS: VIMPAT PO SCH ×2 (11:27→19:50)
[2018-09-01] MEDS: SEROQUEL PO SCH ×3 (11:27→22:16)
[2018-09-01] MEDS: MIRALAX PO SCH (11:27)
[2018-09-01] MEDS: CULTURELLE FOR KIDS PO SCH ×3 (11:28→18:37)
[2018-09-01] MEDS: JANUVIA PO SCH (11:28)
[2018-09-01] MEDS: NORVASC PO SCH (11:28)
[2018-09-01] MEDS: COLACE PO SCH (11:28)
[2018-09-01] MEDS: APRESOLINE PO SCH ×3 (11:28→18:37)
[2018-09-01] MEDS: TOPROL XL PO SCH (11:28)
[2018-09-01] MEDS: ACTOS PO SCH (11:30)
[2018-09-01] MEDS: LIPITOR PO SCH ×2 (19:50→22:16)
--- NOTE | 2018-09-01 22:09 | PROGRESS NOTE ---
DATE: 09/01/2018 SUBJECTIVE: Patient seen. She is in no acute distress. OBJECTIVE: She is unchanged physically. Vital signs are stable. Blood sugars elevated in the 130s to 330s. ASSESSMENT AND PLAN: We will continue to follow. Further orders as needed. cc: Ricky Daley MD
[2018-09-02] MEDS: VIMPAT PO SCH ×3 (00:21→22:00)
[2018-09-02] MEDS: D50W SYRINGE IV PRN ×2 (01:20→02:20)
[2018-09-02] MEDS: INSTA-GLUCOSE PO PRN (05:51)
[2018-09-02] MEDS: HUMALOG (PARKWAY) SUBQ SCH ×4 (06:27→21:59)
[2018-09-02] MEDS: VICTOZA SUBQ SCH (08:00)
[2018-09-02] MEDS: ACTOS PO SCH (08:01)
[2018-09-02] MEDS: ASPIRIN PO SCH (08:01)
[2018-09-02] MEDS: MIRALAX PO SCH (08:01)
[2018-09-02] MEDS: SEROQUEL PO SCH ×2 (08:01→22:00)
[2018-09-02] MEDS: CULTURELLE FOR KIDS PO SCH ×3 (08:01→16:50)
[2018-09-02] MEDS: PRINIVIL PO SCH ×2 (08:01→22:01)
[2018-09-02] MEDS: APRESOLINE PO SCH ×3 (08:01→16:50)
[2018-09-02] MEDS: JANUVIA PO SCH (08:01)
[2018-09-02] MEDS: COLACE PO SCH (08:01)
[2018-09-02] MEDS: TOPROL XL PO SCH (08:02)
[2018-09-02] MEDS: NORVASC PO SCH (08:02)
[2018-09-02] MEDS: BASAGLAR SUBQ SCH (08:55)
[2018-09-02] MEDS: LIPITOR PO SCH (22:00)
--- NOTE | 2018-09-03 00:08 | PROGRESS NOTE ---
DATE: 09/02/2018 SUBJECTIVE: The patient has no complaints. PHYSICAL EXAMINATION: Vital signs reviewed. BP 114/69. Blood sugar is 92 to 128. Physical exam is unchanged. PLAN: We will continue to follow, continue symptomatic treatment, and await transfer to residential when available. cc: Ricky Daley MD
[2018-09-03] MEDS: HUMALOG (PARKWAY) SUBQ SCH ×4 (06:01→20:23)
[2018-09-03] MEDS: VIMPAT PO SCH ×2 (09:37→20:22)
[2018-09-03] MEDS: SEROQUEL PO SCH ×2 (09:37→20:23)
[2018-09-03] MEDS: ACTOS PO SCH (09:37)
[2018-09-03] MEDS: JANUVIA PO SCH (09:37)
[2018-09-03] MEDS: ASPIRIN PO SCH (09:38)
[2018-09-03] MEDS: APRESOLINE PO SCH ×3 (09:38→16:12)
[2018-09-03] MEDS: TOPROL XL PO SCH (09:38)
[2018-09-03] MEDS: MIRALAX PO SCH (09:38)
[2018-09-03] MEDS: BASAGLAR SUBQ SCH (09:38)
[2018-09-03] MEDS: VICTOZA SUBQ SCH (09:38)
[2018-09-03] MEDS: PRINIVIL PO SCH ×2 (09:38→20:23)
[2018-09-03] MEDS: CULTURELLE FOR KIDS PO SCH ×3 (09:38→16:12)
[2018-09-03] MEDS: NORVASC PO SCH (09:38)
[2018-09-03] MEDS: COLACE PO SCH (09:38)
--- NOTE | 2018-09-03 18:49 | PROGRESS NOTE ---
DATE: 09/03/2018 SUBJECTIVE: No new complaints. PHYSICAL EXAMINATION: Vital Signs: Stable. Examination: No changes. PLAN: We will continue to follow until we can have placement. Will adjust orders as needed. Blood sugars have been stable recently. cc: Ricky Daley MD
[2018-09-03] MEDS: LIPITOR PO SCH (20:23)
[2018-09-04] MEDS: HUMALOG (PARKWAY) SUBQ SCH ×4 (06:01→20:21)
[2018-09-04] MEDS: BASAGLAR SUBQ SCH (10:09)
[2018-09-04] MEDS: VIMPAT PO SCH ×2 (10:10→20:20)
[2018-09-04] MEDS: SEROQUEL PO SCH ×2 (10:10→20:20)
[2018-09-04] MEDS: COLACE PO SCH (10:10)
[2018-09-04] MEDS: JANUVIA PO SCH (10:10)
[2018-09-04] MEDS: VICTOZA SUBQ SCH (10:10)
[2018-09-04] MEDS: ASPIRIN PO SCH (10:11)
[2018-09-04] MEDS: NORVASC PO SCH (10:11)
[2018-09-04] MEDS: PRINIVIL PO SCH ×2 (10:11→20:20)
[2018-09-04] MEDS: APRESOLINE PO SCH ×3 (10:11→16:50)
[2018-09-04] MEDS: CULTURELLE FOR KIDS PO SCH ×3 (10:11→16:50)
[2018-09-04] MEDS: MIRALAX PO SCH (10:11)
[2018-09-04] MEDS: TOPROL XL PO SCH (10:11)
[2018-09-04] MEDS: ACTOS PO SCH (10:12)
[2018-09-04] MEDS: LIPITOR PO SCH (20:20)
--- NOTE | 2018-09-05 02:21 | PROGRESS NOTE ---
DATE: 09/04/2018 SUBJECTIVE: Patient has no new complaints. PHYSICAL EXAMINATION: Vital Signs: Reviewed and stable. Blood pressures are stable. Blood sugars between 57 and 287. PLAN: We will continue symptomatic care. Continue to follow and await transition to long-term care when available. cc: Ricky Daley MD
[2018-09-05] MEDS: HUMALOG (PARKWAY) SUBQ SCH ×4 (06:07→20:04)
[2018-09-05] MEDS: COLACE PO SCH (09:45)
[2018-09-05] MEDS: TOPROL XL PO SCH (09:45)
[2018-09-05] MEDS: APRESOLINE PO SCH ×3 (09:45→16:42)
[2018-09-05] MEDS: PRINIVIL PO SCH ×2 (09:45→20:04)
[2018-09-05] MEDS: JANUVIA PO SCH (09:45)
[2018-09-05] MEDS: MIRALAX PO SCH (09:45)
[2018-09-05] MEDS: NORVASC PO SCH (09:45)
[2018-09-05] MEDS: SEROQUEL PO SCH ×2 (09:45→20:04)
[2018-09-05] MEDS: ASPIRIN PO SCH (09:45)
[2018-09-05] MEDS: VIMPAT PO SCH ×2 (09:45→20:04)
[2018-09-05] MEDS: ACTOS PO SCH (09:46)
[2018-09-05] MEDS: VICTOZA SUBQ SCH (09:46)
[2018-09-05] MEDS: BASAGLAR SUBQ SCH (09:46)
[2018-09-05] MEDS: CULTURELLE FOR KIDS PO SCH ×3 (09:46→16:40)
[2018-09-05] MEDS: TYLENOL PO PRN (09:46)
[2018-09-05] MEDS: D50W SYRINGE IV PRN (16:38)
[2018-09-05] MEDS: LIPITOR PO SCH (20:04)
--- NOTE | 2018-09-05 22:48 | PROGRESS NOTE ---
DATE: 09/05/2018 SUBJECTIVE: Patient has no new complaints. PHYSICAL EXAMINATION: General: Vitals reviewed. She is awake, alert. She is in no distress. Vital signs: Blood pressure is elevated 166/73. Blood sugars are elevated from 166 to 330, which is higher than she has been over the last several days. Physical exam is unchanged. ASSESSMENT: 1. Diabetes. Patient's blood sugars are quite difficult to control, as some days she eats and others she refuses. We will continue current medications. 2. Hypertension. 3. Dyslipidemia. 4. Dementia. 5. Social neglect. PLAN: We will continue to follow. Continue supportive care until long-term arrangements can be made. cc: Ricky Daley MD
[2018-09-06] MEDS: HUMALOG (PARKWAY) SUBQ SCH ×4 (06:00→20:12)
[2018-09-06] MEDS: VIMPAT PO SCH ×2 (09:12→20:12)
[2018-09-06] MEDS: ACTOS PO SCH (09:13)
[2018-09-06] MEDS: ASPIRIN PO SCH (09:13)
[2018-09-06] MEDS: TOPROL XL PO SCH (09:13)
[2018-09-06] MEDS: APRESOLINE PO SCH ×3 (09:13→20:11)
[2018-09-06] MEDS: CULTURELLE FOR KIDS PO SCH ×3 (09:13→18:16)
[2018-09-06] MEDS: JANUVIA PO SCH (09:13)
[2018-09-06] MEDS: NORVASC PO SCH (09:13)
[2018-09-06] MEDS: COLACE PO SCH (09:13)
[2018-09-06] MEDS: PRINIVIL PO SCH ×2 (09:13→20:11)
[2018-09-06] MEDS: SEROQUEL PO SCH ×2 (09:13→20:11)
[2018-09-06] MEDS: BASAGLAR SUBQ SCH (09:14)
[2018-09-06] MEDS: VICTOZA SUBQ SCH (09:14)
[2018-09-06] MEDS: MIRALAX PO SCH (09:14)
--- NOTE | 2018-09-06 17:08 | PROGRESS NOTE ---
DATE: 09/06/2018 SUBJECTIVE: The patient this morning is very awake, alert, quite talkative. She ate breakfast very well, although is still somewhat confused. PHYSICAL EXAMINATION: Vital Signs: Temp 98, pulse 86, respiratory 20, BP 131/63. General: Patient is very pleasant this morning. She is in no distress. She has no complaints. HEENT: Normocephalic. Neck: Supple. Cardiovascular: Regular rate. Chest: Clear. ASSESSMENT: 1. Diabetes, with frequent hypoglycemic episodes. Blood sugar currently 179 to 275. 2. Hypertension. 3. Seizure disorder. 4. Dyslipidemia. 5. Dementia. 6. Social neglect. PLAN: We will continue patient in the hospital. Continue to follow until which time she can be transitioned to long-term care. We will continue to allow intermittent elevations in her blood pressure as well as her blood sugar as she frequently has episodes where she does not eat and her blood sugars dropped to the 50s, which has in the past created seizures. cc: Ricky Daley MD
[2018-09-06] MEDS: LIPITOR PO SCH (20:12)
[2018-09-07] MEDS: HUMALOG (PARKWAY) SUBQ SCH ×4 (06:11→22:44)
[2018-09-07] MEDS: PRINIVIL PO SCH ×2 (10:03→22:43)
[2018-09-07] MEDS: NORVASC PO SCH (10:03)
[2018-09-07] MEDS: ASPIRIN PO SCH (10:03)
[2018-09-07] MEDS: VIMPAT PO SCH ×2 (10:03→22:43)
[2018-09-07] MEDS: SEROQUEL PO SCH ×2 (10:03→22:43)
[2018-09-07] MEDS: ACTOS PO SCH (10:04)
[2018-09-07] MEDS: MIRALAX PO SCH (10:04)
[2018-09-07] MEDS: COLACE PO SCH (10:04)
[2018-09-07] MEDS: APRESOLINE PO SCH ×3 (10:04→22:42)
[2018-09-07] MEDS: TOPROL XL PO SCH (10:04)
[2018-09-07] MEDS: CULTURELLE FOR KIDS PO SCH ×3 (10:04→22:43)
[2018-09-07] MEDS: JANUVIA PO SCH (10:04)
[2018-09-07] MEDS: BASAGLAR SUBQ SCH (10:05)
[2018-09-07] MEDS: VICTOZA SUBQ SCH (10:05)
--- NOTE | 2018-09-07 15:33 | PROGRESS NOTE ---
DATE: 09/07/2018 SUBJECTIVE: She is lying in bed. She awakens periodically. She is clutching a grilled cheese sandwich but other than that no major issues. OBJECTIVE: Blood pressure 166/72, heart rate of 82, respiratory rate 20, temperature 97.3 degrees.Cardiovascular: Regular rate and rhythm. Pulmonary: Bilateral breath sounds. Clear to auscultation. GI: Soft, nontender, nondistended. Bowel sounds are positive. LABORATORY DATA: Her blood sugar 248 yesterday, 354, 275, 183. PROBLEMS: 1. Diabetes. She is stable. Wish we could do a little bit better with her but we have pushed the doses previously and then she bottoms out and it becomes a difficult issue to control. 2. Hypertension, overall, fair control for her age and risk factors. 3. Seizure disorder appears to be controlled on her current medications. DISPOSITION: She is a essentially abandoned family member with severe dementia. She cannot take care of herself. There is no family willing to assume power of employment law attorney so they are looking at medical legal power of employment law attorney, [place] of the state, but her family somehow was out of state has managed to abscond with her funds or is managing her funds and I guess there is an issue with stabilizing that so at this point she has no treatment. cc: Zachery Bill MD
[2018-09-07] MEDS: LIPITOR PO SCH (22:44)
[2018-09-08] MEDS: HUMALOG (PARKWAY) SUBQ SCH ×4 (06:40→21:24)
[2018-09-08] MEDS: VIMPAT PO SCH ×2 (08:58→21:22)
[2018-09-08] MEDS: ASPIRIN PO SCH (08:59)
[2018-09-08] MEDS: JANUVIA PO SCH (08:59)
[2018-09-08] MEDS: COLACE PO SCH (09:00)
[2018-09-08] MEDS: APRESOLINE PO SCH ×3 (09:00→21:23)
[2018-09-08] MEDS: TOPROL XL PO SCH (09:00)
[2018-09-08] MEDS: CULTURELLE FOR KIDS PO SCH ×3 (09:00→21:24)
[2018-09-08] MEDS: SEROQUEL PO SCH ×2 (09:00→21:22)
[2018-09-08] MEDS: MIRALAX PO SCH (09:01)
[2018-09-08] MEDS: ACTOS PO SCH (09:01)
[2018-09-08] MEDS: NORVASC PO SCH (09:01)
[2018-09-08] MEDS: PRINIVIL PO SCH ×2 (09:01→21:24)
[2018-09-08] MEDS: BASAGLAR SUBQ SCH (09:02)
[2018-09-08] MEDS: VICTOZA SUBQ SCH (09:02)
--- NOTE | 2018-09-08 18:58 | PROGRESS NOTE ---
DATE: 09/08/2018 SUBJECTIVE: Patient has no major complaints. She is sitting up eating. OBJECTIVE: Vital Signs: Stable. Blood pressure 170/72. Cardiovascular: Regular rate and rhythm. Pulmonary: Bilateral breath sounds. Clear to auscultation. Gastrointestinal: Abdomen was soft, nontender, nondistended. Bowel sounds are positive. ASSESSMENT/PLAN: 1. Diabetes is fairly well controlled on current regimen. 2. Hypertension. We will continue her regular medications on her current regimen. 3. Dementia with behavioral disturbances stable on current medications. We are awaiting licensed master social worker for other treatments. 4. I am going to stop her Glucerna just an attempt to see if we can get her sugars under better control. I do not think she is malnourished at this point. cc: Zachery Bill MD
[2018-09-08] MEDS: D50W SYRINGE IV PRN (21:17)
[2018-09-08] MEDS: LIPITOR PO SCH (21:22)
[2018-09-09] MEDS: HUMALOG (PARKWAY) SUBQ SCH ×4 (06:22→20:56)
[2018-09-09] MEDS: COLACE PO SCH (10:25)
[2018-09-09] MEDS: ACTOS PO SCH (10:25)
[2018-09-09] MEDS: MIRALAX PO SCH (10:25)
[2018-09-09] MEDS: CULTURELLE FOR KIDS PO SCH ×3 (10:25→16:30)
[2018-09-09] MEDS: ASPIRIN PO SCH (10:26)
[2018-09-09] MEDS: PRINIVIL PO SCH ×2 (10:26→20:58)
[2018-09-09] MEDS: SEROQUEL PO SCH ×2 (10:26→20:57)
[2018-09-09] MEDS: JANUVIA PO SCH (10:26)
[2018-09-09] MEDS: VIMPAT PO SCH ×2 (10:26→20:57)
[2018-09-09] MEDS: VICTOZA SUBQ SCH (10:27)
[2018-09-09] MEDS: APRESOLINE PO SCH ×3 (10:27→16:30)
[2018-09-09] MEDS: TOPROL XL PO SCH (10:27)
[2018-09-09] MEDS: NORVASC PO SCH (10:27)
[2018-09-09] MEDS: BASAGLAR SUBQ SCH (10:28)
--- NOTE | 2018-09-09 15:24 | PROGRESS NOTE ---
DATE: 09/09/2018 SUBJECTIVE: The patient has no major complaints. OBJECTIVE: Blood pressure is 150/77, heart rate of 84, respiratory 16, temperature 97.9 degrees, 100% on room air.Cardiovascular: Regular rate and rhythm. Pulmonary: Bilateral breath sounds clear to auscultation. Gastrointestinal: Soft, nontender, nondistended. Bowel sounds are positive. LABORATORY DATA: Blood sugars 154 to 215. PROBLEM LIST: 1. Diabetes is stable on her current regimen. 2. Hypertension. Also stable on her current medications. 3. Dementia with intermittent behavioral disturbance. She is currently on Seroquel 200 b.i.d. with some p.r.n. Geodon. We will continue to follow. DISPOSITION: Waiting on medical/legal issues to clear, financial issues to clear for her to be placed in long-term care. She does not currently have a guardian who will participate in her care. cc: Zachery Bill MD
[2018-09-09] MEDS: LIPITOR PO SCH (20:58)
[2018-09-10] MEDS: HUMALOG (PARKWAY) SUBQ SCH ×4 (07:31→20:37)
--- NOTE | 2018-09-10 08:48 | PROGRESS NOTE ---
DATE: 09/10/2018 SUBJECTIVE: Patient resting quietly in bed. No signs or symptoms of distress noted at this time. OBJECTIVE: Vital signs: Temperature 97.6 degrees, pulse 85, respirations 16, blood pressure 161/98 saturating 100% on room air. Lungs: Clear to auscultation bilaterally. Equal lung expansion. Chest wall movement. Heart: Regular rate and rhythm. No murmurs, rubs, or gallops. Abdomen: Soft, nontender, and nondistended. Bowel sounds are present x4 quadrants. LABORATORY DATA: Blood sugars have been running anywhere from 110 to 208. ASSESSMENT: 1. Diabetes. 2. Hypertension. 3. Dementia with intermittent behavioral disturbance. PLAN: We will continue her current medication regimen. We still are waiting on her medical/legal issues to resolve, and her financial issues to be cleared up so that she can have long-term care. No current guardian has been identified in order to participate in her care. Dictated by EDDIE Vicente for Ventura Pleitez MD cc: EDDIE Vicente MD
[2018-09-10] MEDS: CULTURELLE FOR KIDS PO SCH ×3 (09:00→17:38)
[2018-09-10] MEDS: COLACE PO SCH (09:00)
[2018-09-10] MEDS: APRESOLINE PO SCH ×3 (09:00→17:38)
[2018-09-10] MEDS: JANUVIA PO SCH (09:00)
[2018-09-10] MEDS: MIRALAX PO SCH (09:00)
[2018-09-10] MEDS: NORVASC PO SCH (09:00)
[2018-09-10] MEDS: TOPROL XL PO SCH (09:00)
[2018-09-10] MEDS: PRINIVIL PO SCH ×2 (09:00→20:36)
[2018-09-10] MEDS: ASPIRIN PO SCH (09:00)
[2018-09-10] MEDS: SEROQUEL PO SCH ×2 (09:00→20:36)
[2018-09-10] MEDS: BASAGLAR SUBQ SCH (09:00)
[2018-09-10] MEDS: ACTOS PO SCH (09:00)
[2018-09-10] MEDS: VICTOZA SUBQ SCH (09:01)
[2018-09-10] MEDS: VIMPAT PO SCH ×2 (09:04→20:36)
[2018-09-10] MEDS: LIPITOR PO SCH (20:36)
[2018-09-11] MEDS: HUMALOG (PARKWAY) SUBQ SCH ×4 (06:48→21:39)
--- NOTE | 2018-09-11 08:46 | PROGRESS NOTE ---
DATE: 09/11/2018 SUBJECTIVE: Patient resting quietly in bed with eyes open. No complaints voiced at this time. OBJECTIVE: Vital Signs: Temperature 99.7 degrees, pulse 84, respirations 18, blood pressure 121/50, satting 100% on room air. Lungs: Clear to auscultation bilaterally with equal lung expansion, chest wall movement. Heart: Regular rate and rhythm. No murmurs, rubs, or gallops. Abdomen: Soft, nontender, nondistended. Bowel sounds present x4 quadrants. LABORATORY DATA: Her blood sugars have been running in the upper 200s at 289 and 274 this morning. ASSESSMENT: 1. Diabetes. 2. Hypertension. 3. Dementia with intermittent behavioral disturbances. PLAN: Plan has not changed. We continue her current medication regimen. We are waiting on her medical legal issues to resolve so that her financial issues can be cleared up, and she can be placed in long-term care, but no guardian has been identified at this time. So, we will continue to monitor. Dictated by EDDIE Vicente for Ventura Pleitez MD cc: EDDIE Vicente MD
[2018-09-11] MEDS: CULTURELLE FOR KIDS PO SCH ×3 (09:25→16:07)
[2018-09-11] MEDS: PRINIVIL PO SCH ×2 (09:25→21:38)
[2018-09-11] MEDS: ASPIRIN PO SCH (09:25)
[2018-09-11] MEDS: APRESOLINE PO SCH ×3 (09:25→16:07)
[2018-09-11] MEDS: JANUVIA PO SCH (09:25)
[2018-09-11] MEDS: MIRALAX PO SCH (09:25)
[2018-09-11] MEDS: SEROQUEL PO SCH ×2 (09:25→21:38)
[2018-09-11] MEDS: TOPROL XL PO SCH (09:26)
[2018-09-11] MEDS: NORVASC PO SCH (09:26)
[2018-09-11] MEDS: VIMPAT PO SCH ×2 (09:26→21:38)
[2018-09-11] MEDS: COLACE PO SCH (09:26)
[2018-09-11] MEDS: BASAGLAR SUBQ SCH (09:26)
[2018-09-11] MEDS: ACTOS PO SCH (09:26)
[2018-09-11] MEDS: VICTOZA SUBQ SCH (09:27)
[2018-09-11] MEDS: LIPITOR PO SCH (21:38)
[2018-09-12] MEDS: HUMALOG (PARKWAY) SUBQ SCH ×4 (06:03→21:34)
[2018-09-12] MEDS: SEROQUEL PO SCH ×2 (09:27→21:29)
[2018-09-12] MEDS: TOPROL XL PO SCH (09:27)
[2018-09-12] MEDS: MIRALAX PO SCH (09:27)
[2018-09-12] MEDS: VIMPAT PO SCH ×2 (09:27→21:29)
[2018-09-12] MEDS: APRESOLINE PO SCH ×3 (09:27→22:29)
[2018-09-12] MEDS: ASPIRIN PO SCH (09:27)
[2018-09-12] MEDS: JANUVIA PO SCH (09:27)
[2018-09-12] MEDS: PRINIVIL PO SCH ×2 (09:27→21:29)
[2018-09-12] MEDS: CULTURELLE FOR KIDS PO SCH ×3 (09:27→22:31)
[2018-09-12] MEDS: ACTOS PO SCH (09:27)
[2018-09-12] MEDS: NORVASC PO SCH (09:27)
[2018-09-12] MEDS: BASAGLAR SUBQ SCH (09:27)
[2018-09-12] MEDS: COLACE PO SCH (09:27)
[2018-09-12] MEDS: VICTOZA SUBQ SCH (09:28)
--- NOTE | 2018-09-12 11:28 | PROGRESS NOTE ---
DATE: 09/12/2018 SUBJECTIVE: This morning Ms. Bajwa refers to be doing fairly okay. She denies any complaint. She was actually drinking some yogurt at the time of the encounter. OBJECTIVE: Vital Signs: Stable. Blood pressure is 170/84, pulse is 83, respirations 20, temperature is 98.4 degrees. General: On physical exam, Ms. Bajwa is an 83-year-old female. She is in bed, no distress. HEENT: Mucosa is pink and moist. Anicteric. Acyanotic. Neck: Supple. Chest: Clear to auscultation. No crepitations. No rhonchi. Cardiovascular: Regular rate and rhythm. Abdomen: Soft, nontender. Bowel sounds present. OPTICAL INSTRUMENTS SUPERVISOR: Patient is awake, alert. LABORATORY DATA: None for today. PATIENT MEDICATIONS: Have all been reviewed and no changes. ASSESSMENT: 1. Diabetes mellitus, controlled. 2. Hypertension, controlled. 3. Dementia with intermittent behavioral disturbances, stable. 4. Disposition: Still pending arrangements. cc: Daniel Hahn MD
[2018-09-12] MEDS: LIPITOR PO SCH (21:29)
[2018-09-13] MEDS: HUMALOG (PARKWAY) SUBQ SCH ×4 (06:34→21:10)
[2018-09-13] MEDS: TOPROL XL PO SCH (10:09)
[2018-09-13] MEDS: CULTURELLE FOR KIDS PO SCH ×3 (10:09→21:10)
[2018-09-13] MEDS: MIRALAX PO SCH (10:09)
[2018-09-13] MEDS: ACTOS PO SCH (10:09)
[2018-09-13] MEDS: COLACE PO SCH (10:09)
[2018-09-13] MEDS: ASPIRIN PO SCH (10:10)
[2018-09-13] MEDS: NORVASC PO SCH (10:10)
[2018-09-13] MEDS: APRESOLINE PO SCH ×3 (10:10→21:19)
[2018-09-13] MEDS: SEROQUEL PO SCH ×2 (10:10→21:10)
[2018-09-13] MEDS: JANUVIA PO SCH (10:10)
[2018-09-13] MEDS: PRINIVIL PO SCH ×2 (10:11→21:19)
[2018-09-13] MEDS: VIMPAT PO SCH ×2 (10:11→21:09)
[2018-09-13] MEDS: VICTOZA SUBQ SCH (10:11)
[2018-09-13] MEDS: BASAGLAR SUBQ SCH (10:12)
--- NOTE | 2018-09-13 11:58 | PROGRESS NOTE ---
DATE: 09/13/2018 SUBJECTIVE: This morning Ms. Bajwa is stable. No new complaints overnight. The patient has been tolerating her diet and has regular bowel movements. OBJECTIVE: Vital signs: Blood pressure 172/81, pulse is 80, respiration is 16, temperature 97.6 degrees. The patient is saturating 98% on room air. On general exam, Ms. Bajwa is an 83-year- old female. She is in bed, was not in any distress. Mucosa is pink and moist. Anicteric. Acyanotic. Neck is supple. Chest was clear to auscultation. Cardiovascular: Regular rate and rhythm. Abdomen is soft. No hepatosplenomegaly. Extremities: No pedal edema. Central Nervous System: Patient is awake, alert, fairly confused, but that seems to be her baseline. DIAGNOSTIC STUDIES: No lab work for this morning. Her glucose is 180. PATIENT MEDICATIONS: Have been reviewed. No changes. ASSESSMENT: 1. Diabetes mellitus, controlled. 2. Hypertension. 3. Dementia with intermittent behavioral disturbances. 4. Social issues with pending disposition. cc: Daniel Hahn MD
[2018-09-13] MEDS: LIPITOR PO SCH (21:10)
[2018-09-14] MEDS: HUMALOG (PARKWAY) SUBQ SCH ×4 (06:13→22:59)
[2018-09-14] MEDS: SEROQUEL PO SCH ×2 (09:52→22:59)
[2018-09-14] MEDS: CULTURELLE FOR KIDS PO SCH ×3 (09:52→16:27)
[2018-09-14] MEDS: VIMPAT PO SCH ×2 (09:52→22:59)
[2018-09-14] MEDS: APRESOLINE PO SCH ×3 (09:52→16:28)
[2018-09-14] MEDS: ASPIRIN PO SCH (09:52)
[2018-09-14] MEDS: ACTOS PO SCH ×2 (09:53→13:09)
[2018-09-14] MEDS: TOPROL XL PO SCH (09:53)
[2018-09-14] MEDS: PRINIVIL PO SCH ×2 (09:53→22:59)
[2018-09-14] MEDS: COLACE PO SCH (09:53)
[2018-09-14] MEDS: NORVASC PO SCH (09:53)
[2018-09-14] MEDS: MIRALAX PO SCH (10:01)
[2018-09-14] MEDS: BASAGLAR SUBQ SCH (13:10)
[2018-09-14] MEDS: JANUVIA PO SCH (13:10)
[2018-09-14] MEDS: VICTOZA SUBQ SCH (13:10)
--- NOTE | 2018-09-14 19:32 | PROGRESS NOTE ---
DATE: 09/14/2018 SUBJECTIVE: Patient has no new complaints. PHYSICAL EXAMINATION: Vital signs reviewed. Blood pressure 118/73. Blood sugars 90 to 300. She is in no current respiratory distress. PLAN: Will continue patient in the hospital until which time further arrangements can be made for proper discharge planning. No current changes are needed. cc: Ricky Daley MD
[2018-09-14] MEDS: LIPITOR PO SCH (22:59)
[2018-09-15] MEDS: HUMALOG (PARKWAY) SUBQ SCH ×4 (06:51→20:40)
[2018-09-15] MEDS: SEROQUEL PO SCH ×2 (09:55→20:42)
[2018-09-15] MEDS: TOPROL XL PO SCH (09:59)
[2018-09-15] MEDS: VIMPAT PO SCH ×2 (09:59→20:42)
[2018-09-15] MEDS: JANUVIA PO SCH (09:59)
[2018-09-15] MEDS: COLACE PO SCH (09:59)
[2018-09-15] MEDS: CULTURELLE FOR KIDS PO SCH ×3 (09:59→17:31)
[2018-09-15] MEDS: PRINIVIL PO SCH ×2 (09:59→20:43)
[2018-09-15] MEDS: APRESOLINE PO SCH ×3 (10:00→17:31)
[2018-09-15] MEDS: MIRALAX PO SCH (10:00)
[2018-09-15] MEDS: NORVASC PO SCH (10:00)
[2018-09-15] MEDS: ACTOS PO SCH (10:00)
[2018-09-15] MEDS: ASPIRIN PO SCH (10:00)
[2018-09-15] MEDS: BASAGLAR SUBQ SCH (10:13)
[2018-09-15] MEDS: VICTOZA SUBQ SCH (10:14)
[2018-09-15] MEDS: LIPITOR PO SCH (20:42)
--- NOTE | 2018-09-15 21:45 | PROGRESS NOTE ---
DATE: 09/15/2018 SUBJECTIVE: Patient has no complaints. PHYSICAL: Vital signs reviewed and stable. Blood pressure is 132/89. Physical exam is unchanged. Blood sugars are 180s to 280s. ASSESSMENT: 1. Diabetes. 2. Hypertension. 3. Dementia. 4. Adult failure to thrive. PLAN: We will continue patient in the hospital until which time discharge plans can be made. cc: Ricky Daley MD
[2018-09-16] MEDS: HUMALOG (PARKWAY) SUBQ SCH ×4 (06:03→20:49)
--- NOTE | 2018-09-16 08:09 | PROGRESS NOTE ---
DATE: 09/16/2018 SUBJECTIVE: The patient has no new complaints. OBJECTIVE: General: Physical examination is unchanged Vital Signs: Stable. BP 138/65. Blood sugars 140 to 270. PLAN: We will continue patient in the hospital until which time further discharge arrangements can be made. No changes were made on her current medications or diet. cc: Ricky Daley MD
[2018-09-16] MEDS: VICTOZA SUBQ SCH (11:14)
[2018-09-16] MEDS: APRESOLINE PO SCH ×3 (11:14→21:59)
[2018-09-16] MEDS: ASPIRIN PO SCH (11:14)
[2018-09-16] MEDS: ACTOS PO SCH (11:14)
[2018-09-16] MEDS: CULTURELLE FOR KIDS PO SCH ×3 (11:15→21:59)
[2018-09-16] MEDS: BASAGLAR SUBQ SCH (11:15)
[2018-09-16] MEDS: COLACE PO SCH (11:15)
[2018-09-16] MEDS: MIRALAX PO SCH (11:16)
[2018-09-16] MEDS: PRINIVIL PO SCH ×2 (11:16→20:42)
[2018-09-16] MEDS: JANUVIA PO SCH (11:16)
[2018-09-16] MEDS: NORVASC PO SCH (11:16)
[2018-09-16] MEDS: SEROQUEL PO SCH ×2 (11:16→20:42)
[2018-09-16] MEDS: TOPROL XL PO SCH (11:17)
[2018-09-16] MEDS: VIMPAT PO SCH ×2 (11:17→20:42)
[2018-09-16] MEDS: INSTA-GLUCOSE PO PRN (15:15)
[2018-09-16] MEDS: LIPITOR PO SCH (20:42)
[2018-09-17] MEDS: HUMALOG (PARKWAY) SUBQ SCH ×4 (06:17→20:58)
[2018-09-17] MEDS: ACTOS PO SCH (10:06)
[2018-09-17] MEDS: ASPIRIN PO SCH (10:07)
[2018-09-17] MEDS: PRINIVIL PO SCH ×2 (10:07→21:01)
[2018-09-17] MEDS: TOPROL XL PO SCH (10:07)
[2018-09-17] MEDS: CULTURELLE FOR KIDS PO SCH ×3 (10:07→17:23)
[2018-09-17] MEDS: VIMPAT PO SCH ×2 (10:07→21:00)
[2018-09-17] MEDS: NORVASC PO SCH (10:07)
[2018-09-17] MEDS: MIRALAX PO SCH (10:07)
[2018-09-17] MEDS: APRESOLINE PO SCH ×3 (10:08→17:23)
[2018-09-17] MEDS: JANUVIA PO SCH (10:08)
[2018-09-17] MEDS: COLACE PO SCH (10:08)
[2018-09-17] MEDS: SEROQUEL PO SCH ×2 (10:08→21:01)
[2018-09-17] MEDS: VICTOZA SUBQ SCH (10:09)
[2018-09-17] MEDS: BASAGLAR SUBQ SCH (10:14)
[2018-09-17] MEDS: LIPITOR PO SCH (21:00)
--- NOTE | 2018-09-18 00:13 | PROGRESS NOTE ---
DATE: 09/17/2018 SUBJECTIVE: No new complaints. PHYSICAL EXAMINATION: Vital Signs: Reviewed. ASSESSMENT: No changes. Still awaiting placement. cc: Ricky Daley MD MTDD
[2018-09-18] MEDS: HUMALOG (PARKWAY) SUBQ SCH ×4 (06:26→22:29)
[2018-09-18] MEDS: MIRALAX PO SCH (08:29)
[2018-09-18] MEDS: PRINIVIL PO SCH ×2 (08:30→22:28)
[2018-09-18] MEDS: APRESOLINE PO SCH ×3 (08:30→17:43)
[2018-09-18] MEDS: JANUVIA PO SCH (08:30)
[2018-09-18] MEDS: ASPIRIN PO SCH (08:30)
[2018-09-18] MEDS: CULTURELLE FOR KIDS PO SCH ×3 (08:30→17:43)
[2018-09-18] MEDS: SEROQUEL PO SCH ×2 (08:31→22:28)
[2018-09-18] MEDS: VIMPAT PO SCH ×2 (08:31→22:28)
[2018-09-18] MEDS: TOPROL XL PO SCH (08:31)
[2018-09-18] MEDS: NORVASC PO SCH (08:31)
[2018-09-18] MEDS: ACTOS PO SCH (08:31)
[2018-09-18] MEDS: COLACE PO SCH (08:31)
[2018-09-18] MEDS: VICTOZA SUBQ SCH (08:46)
[2018-09-18] MEDS: BASAGLAR SUBQ SCH (08:59)
[2018-09-18] MEDS: LIPITOR PO SCH (22:28)
[2018-09-19] MEDS: HUMALOG (PARKWAY) SUBQ SCH ×4 (06:20→20:31)
[2018-09-19] MEDS: BASAGLAR SUBQ SCH (08:32)
[2018-09-19] MEDS: VICTOZA SUBQ SCH (08:33)
[2018-09-19] MEDS: MIRALAX PO SCH (08:33)
[2018-09-19] MEDS: APRESOLINE PO SCH ×4 (08:34→16:17)
[2018-09-19] MEDS: JANUVIA PO SCH (08:35)
[2018-09-19] MEDS: NORVASC PO SCH (08:35)
[2018-09-19] MEDS: VIMPAT PO SCH ×2 (08:35→20:24)
[2018-09-19] MEDS: TOPROL XL PO SCH (08:35)
[2018-09-19] MEDS: SEROQUEL PO SCH ×2 (08:35→20:24)
[2018-09-19] MEDS: COLACE PO SCH (08:35)
[2018-09-19] MEDS: CULTURELLE FOR KIDS PO SCH ×4 (08:35→16:17)
[2018-09-19] MEDS: PRINIVIL PO SCH ×2 (08:35→20:24)
[2018-09-19] MEDS: ASPIRIN PO SCH (08:35)
[2018-09-19] MEDS: ACTOS PO SCH (08:35)
--- NOTE | 2018-09-19 11:12 | PROGRESS NOTE ---
DATE: 09/18/2018 SUBJECTIVE: No changes. PHYSICAL EXAMINATION: Vital signs reviewed. Blood pressure is stable. Blood sugar 59 to 224. Blood pressure is 159/69. ASSESSMENT: The patient currently is unchanged. We will continue to control her diet, watch her blood pressures and will follow. cc: Ricky Daley MD
[2018-09-19] MEDS: INSTA-GLUCOSE PO PRN ×2 (16:40→16:53)
--- NOTE | 2018-09-19 16:46 | PROGRESS NOTE ---
DATE: 09/19/2018 SUBJECTIVE: No new complaints. PHYSICAL EXAMINATION: No changes. Vital signs are stable. Blood sugars 145 to 235. Blood pressure 153/64. PLAN: We will continue patient in the hospital until which time further arrangements can be made. She is currently awake, alert. She is in no distress. We will continue symptomatic care. cc: Ricky Daley MD
[2018-09-19] MEDS: D50W SYRINGE IV PRN (17:00)
[2018-09-19] MEDS: LIPITOR PO SCH (20:24)
[2018-09-20] MEDS: HUMALOG (PARKWAY) SUBQ SCH ×4 (06:42→22:00)
[2018-09-20] MEDS: LIPITOR PO SCH ×2 (10:30→22:00)
[2018-09-20] MEDS: MIRALAX PO SCH (10:33)
[2018-09-20] MEDS: COLACE PO SCH (10:38)
[2018-09-20] MEDS: ASPIRIN PO SCH (10:38)
[2018-09-20] MEDS: ACTOS PO SCH (10:38)
[2018-09-20] MEDS: APRESOLINE PO SCH ×3 (10:38→17:49)
[2018-09-20] MEDS: TOPROL XL PO SCH (10:39)
[2018-09-20] MEDS: CULTURELLE FOR KIDS PO SCH ×3 (10:39→17:49)
[2018-09-20] MEDS: JANUVIA PO SCH (10:39)
[2018-09-20] MEDS: NORVASC PO SCH (10:39)
[2018-09-20] MEDS: PRINIVIL PO SCH ×2 (10:39→22:00)
[2018-09-20] MEDS: SEROQUEL PO SCH ×2 (10:39→22:00)
[2018-09-20] MEDS: VIMPAT PO SCH ×2 (10:39→22:00)
[2018-09-20] MEDS: VICTOZA SUBQ SCH (10:40)
[2018-09-20] MEDS: BASAGLAR SUBQ SCH (10:42)
--- NOTE | 2018-09-20 17:40 | PROGRESS NOTE ---
DATE: 09/20/2018 SUBJECTIVE: Patient has no complaints. PHYSICAL EXAMINATION: Vital Signs: Reviewed. General: She is awake, alert. She is in no distress. Physical exam unchanged. ASSESSMENT: 1. Diabetes. 2. Hypertension. 3. Dementia with intermittent behavioral disturbances. 4. Poor social situation. PLAN: We will continue patient in the hospital. Her blood sugars have remained relatively controlled, from 70 to 300s. Blood pressures have also remain relatively controlled. She has had no recent seizures. We will continue to follow and await the opportunity to transfer for further long-term care. cc: Ricky Daley MD
[2018-09-21] MEDS: HUMALOG (PARKWAY) SUBQ SCH ×4 (06:48→22:51)
[2018-09-21] MEDS: MIRALAX PO SCH (08:13)
[2018-09-21] MEDS: CULTURELLE FOR KIDS PO SCH ×3 (08:14→18:24)
[2018-09-21] MEDS: JANUVIA PO SCH (08:15)
[2018-09-21] MEDS: ASPIRIN PO SCH (08:15)
[2018-09-21] MEDS: VIMPAT PO SCH ×2 (08:15→21:02)
[2018-09-21] MEDS: APRESOLINE PO SCH ×3 (08:15→18:24)
[2018-09-21] MEDS: SEROQUEL PO SCH ×2 (08:15→21:00)
[2018-09-21] MEDS: NORVASC PO SCH (08:16)
[2018-09-21] MEDS: TOPROL XL PO SCH (08:16)
[2018-09-21] MEDS: ACTOS PO SCH (08:16)
[2018-09-21] MEDS: PRINIVIL PO SCH ×2 (08:16→21:00)
[2018-09-21] MEDS: COLACE PO SCH (08:16)
[2018-09-21] MEDS: VICTOZA SUBQ SCH (08:16)
[2018-09-21] MEDS: BASAGLAR SUBQ SCH (08:16)
--- NOTE | 2018-09-21 20:28 | PROGRESS NOTE ---
DATE: 09/21/2018 SUBJECTIVE: Patient has no major complaints. OBJECTIVE: Vital Signs: Blood pressure is 176/75, heart rate of 82, respiratory rate 18, temperature 97.9, 95% on room air. Cardiovascular: Regular rate and rhythm. Pulmonary: Bilateral breath sounds. Clear to auscultation. Gastrointestinal: Soft, nontender, nondistended. Bowel sounds are positive. LABORATORY DATA: None. Her sugars have varied between 140 to 61, which is pretty good for her. ASSESSMENT: 1. Type 2 diabetes, insulin dependent. Overall, sugars have stabilized. She is on Lantus and Victoza and Actos and Januvia. 2. Hypertension, a little bit high, but for her age and risk factors most of the blood pressures are 120s to 140s. So, I do not want to push up her medications too much. She has had issues in the past. 3. Seizure disorder. She is on Vimpat and stable. 4. Dementia which is severe, but controlled on her current medications. DISPOSITION: It is a legal matter now of establishing legal financial power of claims attorney to control her assets so that they can place her long-term, but apparently with a wait time of 311 days, that is not a very quick process unfortunately. So, we will continue to follow. cc: Zachery Bill MD
[2018-09-21] MEDS: LIPITOR PO SCH (21:00)
[2018-09-21 22:13] LABS: BILIRUBIN URINE NEGATIVE (NEGATIVE); BLOOD URINE 2+ (NEGATIVE); CLARITY VERY CLOUDY (CLEAR); COLOR YELLOW; GLUCOSE URINE NEGATIVE (NEGATIVE); KETONE URINE NEGATIVE (NEGATIVE); LEUKOCYTES URINE 2+ (NEGATIVE); NITRITE URINE NEGATIVE (NEGATIVE); PROTEIN URINE 1+(30 mg/dL) mg/dL (NEGATIVE); SP GRAVITY URINE 1.015; URINE SOURCE CATH; UROBILINOGEN URINE NORMAL
[2018-09-21 22:14] LABS: URINE BACTERIA 4+ /HFP; URINE EPITHELIAL CELLS <10 /HPF (<10); URINE RBC 20-40 /HPF (<10); URINE WBC TNTC /HPF (<10)
[2018-09-21 22:26] LABS: BASO# 0.03 X1000 (0.0-0.2); BASO% 0.6 % (0.0-0.8); EOS# 0.15 X1000 (0.0-0.7); EOS% 2.8 % (0.0-10.0); HEMATOCRIT 27.2 % (37.0-47.0); HEMOGLOBIN 8.7 g/dL (12.0-16.0); IMM GRAN# 0.03 X1000 (0.0-0.04); IMM GRAN% 0.6 % (0.0-0.5); LYMPH% 24.2 % (20.5-51.1); MCV 84.5 FL (81-99); MONO# 0.85 X1000 (0.11-0.59); MONO% 15.8 % (1.7-9.3); MPV 10.8 FL (7.4-10.4); NEUT# 3.02 X1000 (1.4-6.5); PLT 238 X1000 (130-400); RBC 3.22 XMIL (4.2-5.4); RDW 16.4 % (11.5-14.5); WBC 5.38 X1000 (4.8-10.8)
[2018-09-21 23:14] LABS: AGAP 8; ALBUMIN 3.1 g/dL (3.5-5.0); ALKALINE PHOSPHATASE 90 U/L (32-104); BUN 19 mg/dL (8-22); CALCIUM 8.6 mg/dL (8.8-10.2); CHLORIDE 105 mmol/L (98-107); COSMO 286; CREATININE 0.8 mg/dL (0.5-0.9); ESTIMATED GFR > 60; GLUCOSE 182 mg/dL (70-104); GOT 10 U/L (10-30); GPT 11 U/L (10-36); SODIUM 140 mmol/L (136-145); TCO2 28 mmol/L (25-35); TOTAL BILIRUBIN < 0.15 mg/dL (0.20-1.00); TOTAL PROTEIN 6.3 g/dL (6.3-8.3)
[2018-09-22] MEDS: TYLENOL PO PRN (02:10)
[2018-09-22] MEDS: HUMALOG (PARKWAY) SUBQ SCH ×4 (06:26→22:57)
[2018-09-22] MEDS: VIMPAT PO SCH ×2 (08:35→23:05)
[2018-09-22] MEDS: MIRALAX PO SCH (08:35)
[2018-09-22] MEDS: ACTOS PO SCH (08:36)
[2018-09-22] MEDS: SEROQUEL PO SCH ×2 (08:36→23:04)
[2018-09-22] MEDS: JANUVIA PO SCH (08:36)
[2018-09-22] MEDS: ASPIRIN PO SCH (08:36)
[2018-09-22] MEDS: APRESOLINE PO SCH ×3 (08:36→16:50)
[2018-09-22] MEDS: BASAGLAR SUBQ SCH (08:37)
[2018-09-22] MEDS: NORVASC PO SCH (08:37)
[2018-09-22] MEDS: TOPROL XL PO SCH (08:37)
[2018-09-22] MEDS: CULTURELLE FOR KIDS PO SCH ×3 (08:37→16:50)
[2018-09-22] MEDS: COLACE PO SCH (08:37)
[2018-09-22] MEDS: VICTOZA SUBQ SCH (08:38)
[2018-09-22] MEDS: PRINIVIL PO SCH ×2 (08:39→23:05)
[2018-09-22] MEDS: INSTA-GLUCOSE PO PRN ×2 (10:15→16:49)
--- NOTE | 2018-09-22 18:04 | PROGRESS NOTE ---
DATE: 09/22/2018 SUBJECTIVE: She has not had any issues, but she did have some significant urinary retention last night. She had 800 requiring in-and-out catheterization, then she subsequently had 400 and I think she had a catheter placed. UA does look concerning for UTI. Too numerous to count white blood cells, 4+ bacteria, though no nitrite and her culture is pending. Her last 4 cultures since April have been Enterococcus faecalis which has always been sensitive to ampicillin. We will continue to follow. She has not had any fever. I am going to go ahead and put her on some Flomax just to help possibly with urinary retention. ASSESSMENT: 1. Diabetes. Appears to be overall well controlled. She had labs today, which look stable. 2. As far as UTI, it is hard to say she has any symptoms, but she did have urinary retention and I think we probably will err on treating it as a complicated UTI pending culture results. 3. Dementia. It is very severe. She is unable to take care of herself. We are still waiting on ultimate financial issues to stabilize for her to go to long-term care. cc: Zachery Bill MD
[2018-09-22] MEDS: FLOMAX PO SCH (23:05)
[2018-09-22] MEDS: LIPITOR PO SCH (23:05)
[2018-09-23] MEDS: HUMALOG (PARKWAY) SUBQ SCH ×4 (06:24→21:48)
[2018-09-23] MEDS: ASPIRIN PO SCH (09:02)
[2018-09-23] MEDS: APRESOLINE PO SCH ×3 (09:02→18:05)
[2018-09-23] MEDS: MIRALAX PO SCH (09:02)
[2018-09-23] MEDS: SEROQUEL PO SCH ×2 (09:02→21:56)
[2018-09-23] MEDS: CULTURELLE FOR KIDS PO SCH ×3 (09:02→18:05)
[2018-09-23] MEDS: NORVASC PO SCH (09:02)
[2018-09-23] MEDS: PRINIVIL PO SCH ×2 (09:02→21:55)
[2018-09-23] MEDS: VIMPAT PO SCH ×2 (09:02→21:57)
[2018-09-23] MEDS: TOPROL XL PO SCH (09:02)
[2018-09-23] MEDS: COLACE PO SCH (09:02)
[2018-09-23] MEDS: VICTOZA SUBQ SCH (09:03)
[2018-09-23] MEDS: JANUVIA PO SCH (09:03)
[2018-09-23] MEDS: BASAGLAR SUBQ SCH (09:03)
[2018-09-23] MEDS: ACTOS PO SCH (09:03)
--- NOTE | 2018-09-23 14:30 | PROGRESS NOTE ---
DATE: 09/23/2018 SUBJECTIVE: Patient has no focal complaints. OBJECTIVE: Blood pressure 133/51, heart rate of 82, respiratory rate 18, temperature 97.7 degrees, 95% on room air. Cardiovascular: Regular rate and rhythm. Pulmonary: Bilateral breath sounds clear to auscultation. She does seem a little bit more agitated than usual, which she usually signals that she has got a UTI and it does look like she has UTI. Symptomatically, she does have urinary retention. It is Enterococcus. Her micro shows gram-positive cocci. She had over 800 and over nearly 500 bladder scans so she has a Hughes in place, making this a complicated UTI. ASSESSMENT AND PLAN: 1. Complicated urinary tract infection. We will start amoxicillin and follow. 2. Diabetes. Appears to be stable. Blood sugars are overall stable. 3. Dementia. She is on several medications associated. So far, she has not had any issues with her worsening agitation but we will see how she does. cc: Zachery Bill MD
[2018-09-23] MEDS: AMOXIL PO SCH (21:56)
[2018-09-23] MEDS: LIPITOR PO SCH (21:56)
[2018-09-23] MEDS: FLOMAX PO SCH (21:56)
[2018-09-24] MEDS: HUMALOG (PARKWAY) SUBQ SCH (06:12)
[2018-09-24] MEDS: COLACE PO SCH (09:22)
[2018-09-24] MEDS: MIRALAX PO SCH (09:22)
[2018-09-24] MEDS: ASPIRIN PO SCH (09:23)
[2018-09-24] MEDS: PRINIVIL PO SCH ×2 (09:23→22:24)
[2018-09-24] MEDS: APRESOLINE PO SCH ×3 (09:23→17:53)
[2018-09-24] MEDS: TOPROL XL PO SCH (09:23)
[2018-09-24] MEDS: AMOXIL PO SCH (09:23)
[2018-09-24] MEDS: CULTURELLE FOR KIDS PO SCH ×3 (09:23→17:52)
[2018-09-24] MEDS: NORVASC PO SCH (09:23)
[2018-09-24] MEDS: SEROQUEL PO SCH ×2 (09:23→22:24)
[2018-09-24] MEDS: BASAGLAR SUBQ SCH (09:24)
[2018-09-24] MEDS: JANUVIA PO SCH (09:24)
[2018-09-24] MEDS: VIMPAT PO SCH ×2 (09:27→22:24)
--- NOTE | 2018-09-24 14:58 | PROGRESS NOTE ---
DATE: 09/24/2018 SUBJECTIVE: The patient has no major complaints. She is not as agitated as she was yesterday. OBJECTIVE: Vital Signs: Blood pressure is 151/65, heart rate of 90, respiratory rate 18, temperature 98.1 degrees. Cardiovascular: Regular rate and rhythm. Pulmonary: Bilateral breath sounds. Clear to auscultation. GI: Soft, nontender, nondistended. Bowel sounds are positive. LABORATORY DATA: White count is 5, hemoglobin and hematocrit 8 and 27 (that was a couple days ago). PROBLEM LIST: 1. Complicated urinary tract infection. Her urine culture is no growth, so I am going to stop antibiotics and will see how she does. 2. Diabetes. Now, she got hypoglycemic. We run into this pattern of injury, where she gets hypoglycemic and all her medications get held, and then later that day she is hyperglycemic. I think she is a brittle diabetic. She does go up and down. I have stopped all her medications, except for some lower dose Lantus, and will see how she does. Again, she does not have great control. Now granted yesterday, she had several blood sugars in the 40s, or at least two; the day before similar. On days where she gets agitated and her medications are compiled, sometimes I think she does not eat as well and then her sugars get a little bit out of control, so will see how she does with Lantus. She is on a lower dose sliding scale, and will see how she does, although I anticipate tomorrow, she is going to be profoundly hyperglycemic, but will deal with that as it presents itself. 3. Dementia. She is at baseline. 4. Disposition. Again, we are waiting for legal Power of Stapling Machine Operator to be able to manage her finances to provide for her long-term care. cc: Zachery Bill MD
[2018-09-24] MEDS: HUMULIN R (PARKWAY) SUBQ SCH ×2 (17:52→22:02)
[2018-09-24] MEDS: FLOMAX PO SCH (22:23)
[2018-09-24] MEDS: LIPITOR PO SCH (22:24)
[2018-09-25] MEDS: HUMULIN R (PARKWAY) SUBQ SCH ×4 (06:27→21:53)
[2018-09-25] MEDS: SEROQUEL PO SCH ×2 (08:22→20:48)
[2018-09-25] MEDS: COLACE PO SCH (08:22)
[2018-09-25] MEDS: MIRALAX PO SCH (08:22)
[2018-09-25] MEDS: VIMPAT PO SCH ×2 (08:22→20:48)
[2018-09-25] MEDS: CULTURELLE FOR KIDS PO SCH ×3 (08:22→16:00)
[2018-09-25] MEDS: NORVASC PO SCH (08:23)
[2018-09-25] MEDS: TOPROL XL PO SCH (08:23)
[2018-09-25] MEDS: ASPIRIN PO SCH (08:23)
[2018-09-25] MEDS: BASAGLAR SUBQ SCH (08:23)
[2018-09-25] MEDS: PRINIVIL PO SCH ×2 (08:23→20:48)
[2018-09-25] MEDS: APRESOLINE PO SCH ×3 (08:23→15:59)
--- NOTE | 2018-09-25 16:22 | PROGRESS NOTE ---
DATE: 09/25/2018 SUBJECTIVE: She is a little bit agitated today, but not terribly so. Lying horizontally in bed. She has done that numerous times. OBJECTIVE: Blood pressure 166/77, heart rate of 85, respiratory rate 18, temperature was 98.3 degrees.Cardiovascular: Regular rate and rhythm. Pulmonary: Bilateral breath sounds clear to auscultation. Gastrointestinal: Soft, nontender, nondistended. Bowel sounds are positive. ASSESSMENT AND PLAN: 1. Her blood sugars have been okay. She is only on 20 units of insulin. She has had 81, 79, and we have dropped her Lantus to just 20 daily, and she has not been above 200, so I have held the rest of her medications except for her Lantus. Now, previously she has required significant control, so we will see. 2. Dementia stable on her current medications. 3. Seizure disorder. That is also stabilized. We will continue to follow closely. cc: Zachery Bill MD
[2018-09-25] MEDS: FLOMAX PO SCH (20:48)
[2018-09-25] MEDS: LIPITOR PO SCH (20:48)
[2018-09-26] MEDS: HUMULIN R (PARKWAY) SUBQ SCH ×4 (06:50→21:48)
[2018-09-26] MEDS: APRESOLINE PO SCH ×3 (09:42→21:47)
[2018-09-26] MEDS: PRINIVIL PO SCH ×2 (09:42→21:49)
[2018-09-26] MEDS: VIMPAT PO SCH ×2 (09:43→21:49)
[2018-09-26] MEDS: TOPROL XL PO SCH (09:43)
[2018-09-26] MEDS: NORVASC PO SCH (09:43)
[2018-09-26] MEDS: ASPIRIN PO SCH (09:43)
[2018-09-26] MEDS: COLACE PO SCH (09:43)
[2018-09-26] MEDS: CULTURELLE FOR KIDS PO SCH ×3 (09:44→21:48)
[2018-09-26] MEDS: MIRALAX PO SCH (09:44)
[2018-09-26] MEDS: BASAGLAR SUBQ SCH (09:47)
[2018-09-26] MEDS: SEROQUEL PO SCH ×2 (09:47→21:49)
[2018-09-26] MEDS: INSTA-GLUCOSE PO PRN (15:59)
--- NOTE | 2018-09-26 18:18 | PROGRESS NOTE ---
DATE: 09/26/2018 SUBJECTIVE: The patient has no major complaints. OBJECTIVE DATA: Vital Signs: Blood pressure is 164/70, heart rate 90, respiratory rate 20, temperature 97.3, 91% on room air. Cardiovascular: Regular rate and rhythm. Pulmonary: Bilateral breath sounds, clear to auscultation. GI: Soft, nontender, nondistended. Bowel sounds are positive. Extremities: No clubbing or cyanosis. Lymphatic: No peripheral edema. Neurological: Nonfocal. LABORATORY DATA: Blood sugars are 80, 106, 158, 270. PROBLEM LIST: 1. Diabetes. She had a couple of low blood sugars today, but then she got some very high ones, so she is a very brittle diabetic. We only have her on Lantus 20, which I am not sure if that is been held. I guess we will just go to 15 and see how she does. 2. Dementia, at baseline. We will continue regular medications. DISPOSITION: Pending her clinical status. Anticipate discharge whenever we can get her placement regulated. cc: Zachery Bill MD
--- NOTE | 2018-09-26 21:00 | Diag Imaging Result Doc PS360 ---
EXAM: CHEST-PORTABLE 09/26/2018 HISTORY: SUSPECTED ASPIRATION TECHNIQUE: AP portable at 2045 COMMENT: There is cardiomegaly. There is a ventriculoperitoneal shunt catheter. There is some retrocardiac opacity particularly in the left lower lobe. This was also apparently present on 08/19/2018 but is less prominent on the previous study. IMPRESSION: Cardiomegaly. Atelectasis versus pneumonia left lower lobe. Electronically signed by Jona Woo 09/26/2018 8:57 PM
[2018-09-26] MEDS: LIPITOR PO SCH (21:48)
[2018-09-26] MEDS: FLOMAX PO SCH (21:48)
[2018-09-27] MEDS: HUMULIN R (PARKWAY) SUBQ SCH ×4 (06:16→21:38)
[2018-09-27] MEDS: SEROQUEL PO SCH ×2 (10:55→21:38)
[2018-09-27] MEDS: TOPROL XL PO SCH (10:55)
[2018-09-27] MEDS: ASPIRIN PO SCH (10:55)
[2018-09-27] MEDS: COLACE PO SCH (10:55)
[2018-09-27] MEDS: MIRALAX PO SCH (10:55)
[2018-09-27] MEDS: PRINIVIL PO SCH ×2 (10:55→21:38)
[2018-09-27] MEDS: VIMPAT PO SCH ×2 (10:55→21:38)
[2018-09-27] MEDS: NORVASC PO SCH (10:56)
[2018-09-27] MEDS: APRESOLINE PO SCH ×3 (10:58→18:02)
[2018-09-27] MEDS: CULTURELLE FOR KIDS PO SCH ×3 (10:59→18:02)
--- NOTE | 2018-09-27 16:03 | PROGRESS NOTE ---
DATE: 09/27/2018 SUBJECTIVE: She has been a little bit more agitated. Although now this may be because of pneumonia. She had an episode of desaturation last night. OBJECTIVE: Vital Signs: Blood pressure is 162/69, heart rate 84, respiratory rate 16, temperature 98.2 degrees, 98% on 2.5 L, although she is not really keeping it on very much. Cardiovascular: Regular rate and rhythm. Pulmonary: Bilateral breath sounds. Clear to auscultation. GI: Soft, nontender, nondistended. Bowel sounds are positive. LABS: Blood sugars of 168, 161, 247. PROBLEM LIST: 1. Type 2 diabetes. Her blood sugars have been kind of all over the place, but hypoglycemic. She had a couple yesterday afternoon that were low. She has been on 20 units a day and we stopped her other medicines because they have been too low. I dropped her to 15. We will see how she does. We may need to adjust further. I may put her back up on 18. 2. Hypoxia. It is kind of unclear what that is from, although she looks like she may have a little touch in pneumonia, possible aspiration-type. I have gone ahead and started cefepime and Flagyl since this would likely be if not aspiration, gram-negative type pneumonia, institutional-acquired pneumonia. We may need to get a repeat chest x-ray in a couple days. Breathing treatments, pulmonary toilet. 3. Hypertension is stable. Continue regular medications and follow. She is not on any DVT prophylaxis and is essentially bed-bound. I think at some point she had been on Lovenox but it was discontinued. I am going to start her back on Lovenox in the meantime because she does not really get out of bed. We will follow. cc: Zachery Bill MD
[2018-09-27] MEDS: MAXIPIME 1 GM in NS 50 ML IV SCH (19:03)
[2018-09-27] MEDS: FLAGYL 500 MG/NS 500 MG/100 ML IVPB IV SCH (21:38)
[2018-09-27] MEDS: LIPITOR PO SCH (21:38)
[2018-09-27] MEDS: FLOMAX PO SCH (21:38)
[2018-09-28] MEDS: STERILE WATER INJ. INJ PRN (00:23)
[2018-09-28] MEDS: GEODON IM PRN (00:23)
[2018-09-28] MEDS: LOVENOX SUBQ SCH (04:59)
[2018-09-28] MEDS: FLAGYL 500 MG/NS 500 MG/100 ML IVPB IV SCH ×3 (05:03→16:15)
[2018-09-28] MEDS: HUMULIN R (PARKWAY) SUBQ SCH ×4 (06:17→22:00)
[2018-09-28 07:16] LABS: BASO# 0.02 X1000 (0.0-0.2); BASO% 0.2 % (0.0-0.8); EOS# 0.12 X1000 (0.0-0.7); EOS% 1.3 % (0.0-10.0); HEMATOCRIT 28.9 % (37.0-47.0); IMM GRAN# 0.03 X1000 (0.0-0.04); IMM GRAN% 0.3 % (0.0-0.5); LYMPH# 1.44 X1000 (1.2-3.4); LYMPH% 15.2 % (20.5-51.1); MCH 26.5 PG (27-31); MCHC 31.1 g/dL (33-37); MONO# 1.06 X1000 (0.11-0.59); MONO% 11.2 % (1.7-9.3); MPV 10.8 FL (7.4-10.4); NEUT# 6.78 X1000 (1.4-6.5); NEUT% 71.8 % (42.2-75.2); PLT 266 X1000 (130-400); RDW 16.5 % (11.5-14.5); WBC 9.45 X1000 (4.8-10.8)
[2018-09-28 07:33] LABS: AGAP 9; BUN 13 mg/dL (8-22); CALCIUM 8.7 mg/dL (8.8-10.2); CHLORIDE 109 mmol/L (98-107); COSMO 293; CREATININE 0.5 mg/dL (0.5-0.9); ESTIMATED GFR > 60; GLUCOSE 177 mg/dL (70-104); POTASSIUM 3.7 mmol/L (3.5-5.1); SODIUM 145 mmol/L (136-145); TCO2 28 mmol/L (25-35)
[2018-09-28] MEDS: MAXIPIME 1 GM in NS 50 ML IV SCH (08:28)
[2018-09-28] MEDS: TOPROL XL PO SCH (10:14)
[2018-09-28] MEDS: SEROQUEL PO SCH ×2 (10:14→22:00)
[2018-09-28] MEDS: APRESOLINE PO SCH ×3 (10:14→16:15)
[2018-09-28] MEDS: MIRALAX PO SCH (10:14)
[2018-09-28] MEDS: VIMPAT PO SCH ×2 (10:14→22:11)
[2018-09-28] MEDS: COLACE PO SCH (10:14)
[2018-09-28] MEDS: CULTURELLE FOR KIDS PO SCH ×3 (10:14→16:15)
[2018-09-28] MEDS: NORVASC PO SCH (10:14)
[2018-09-28] MEDS: PRINIVIL PO SCH ×2 (10:14→22:00)
[2018-09-28] MEDS: BASAGLAR SUBQ SCH (10:15)
[2018-09-28] MEDS: ASPIRIN PO SCH (10:15)
[2018-09-28 13:57] LABS: FREE T4 0.84 ng/dL (0.93-1.70)
[2018-09-28 13:59] LABS: TSH 6.46 uIUmL (0.27-4.20)
[2018-09-28] MEDS: FLOMAX PO SCH (22:00)
[2018-09-28] MEDS: LIPITOR PO SCH (22:08)
--- NOTE | 2018-09-28 22:31 | PROGRESS NOTE ---
DATE: 09/28/2018 SUBJECTIVE: Patient has no complaints. PHYSICAL EXAMINATION: Vital Signs: Reviewed and stable. General: She is alert. She is in no distress. Physical exam is unchanged. ASSESSMENT: 1. Type 2 diabetes. 2. Hypoxemia. 3. Hypertension. 4. Adult failure to thrive. 5. Poor home social situation. PLAN: We will continue patient in the hospital over the weekend. It was felt that she may have pneumonia. She was started on antibiotics. We will continue these for now. Further orders as needed. cc: Ricky Daley MD MTDD
[2018-09-29] MEDS: FLAGYL 500 MG/NS 500 MG/100 ML IVPB IV SCH ×4 (02:10→23:02)
[2018-09-29] MEDS: MAXIPIME 1 GM in NS 50 ML IV SCH ×2 (06:00→17:26)
[2018-09-29] MEDS: LOVENOX SUBQ SCH (06:02)
[2018-09-29] MEDS: HUMULIN R (PARKWAY) SUBQ SCH ×4 (06:56→21:05)
--- NOTE | 2018-09-29 09:05 | Diag Imaging Result Doc PS360 ---
EXAM: CHEST-PORTABLE HISTORY: dyspnea TECHNIQUE: Portable chest single view COMPARISON: 09/26/2018 FINDINGS: Poor inspiratory effort. There are increased interstitial markings throughout the lungs. The heart is mildly prominent. No pleural effusions identified. A ventriculoperitoneal shunt overlies the chest. IMPRESSION: Cardiomegaly with pulmonary edema Electronically signed by Gabe Devlin 09/29/2018 9:02 AM
[2018-09-29] MEDS: BASAGLAR SUBQ SCH (10:07)
[2018-09-29] MEDS: VIMPAT PO SCH ×2 (10:08→23:04)
[2018-09-29] MEDS: CULTURELLE FOR KIDS PO SCH ×3 (10:08→17:25)
[2018-09-29] MEDS: TOPROL XL PO SCH (10:08)
[2018-09-29] MEDS: COLACE PO SCH (10:08)
[2018-09-29] MEDS: MIRALAX PO SCH (10:08)
[2018-09-29] MEDS: NORVASC PO SCH (10:09)
[2018-09-29] MEDS: SEROQUEL PO SCH ×2 (10:09→23:04)
[2018-09-29] MEDS: ASPIRIN PO SCH (10:09)
[2018-09-29] MEDS: APRESOLINE PO SCH ×3 (10:09→17:25)
[2018-09-29] MEDS: PRINIVIL PO SCH ×2 (10:09→23:03)
--- NOTE | 2018-09-29 13:19 | Diag Imaging Result Doc PS360 ---
EXAM: CT HEAD W/O CONTRAST HISTORY: ams TECHNIQUE: CT head without contrast COMPARISON: 04/22/2018 FINDINGS: No parenchymal hemorrhage. No epidural or subdural hematoma. No subarachnoid hemorrhage. Encephalomalacia in the left temporal and occipital lobes similar to the prior study. There has been a left craniotomy with a catheter along the inner table of the left temporal bone. There are chronic microvascular ischemic changes. No mass identified on this noncontrasted exam. No hydrocephalus. No sinus opacification. IMPRESSION: 1.No hemorrhage 2.Chronic microvascular ischemic changes 3.Left-sided encephalomalacia and postsurgical changes similar to the prior exam This exam was performed using automated exposure control, adjustment of mA or kV according to patient size, and/or use of iterative reconstruction technique. Electronically signed by Gabe Devlin 09/29/2018 1:17 PM
[2018-09-29] MEDS: DUONEB (A & A) INH PRN (18:05)
--- NOTE | 2018-09-29 19:37 | PROGRESS NOTE ---
DATE: 09/28/2018 SUBJECTIVE: The patient has no complaints. OBJECTIVE: Vital signs were reviewed. Temperature 97.8 degrees, pulse 82, respiratory rate 18, BP 159/65. General: The patient is awake. She is in no current respiratory distress. Breath sounds are clear. Abdomen is soft. She did have some swelling earlier. She was given Lasix. She has had 2850 out. ASSESSMENT: 1. Hypothyroidism. TSH has actually continued to climb. We will start her on Synthroid in the morning. 2. Type 2 diabetes. 3. Hypoxemia. 4. Hypertension. 5. Edema, resolved. cc: Ricky Daley MD MTDD
[2018-09-29] MEDS: LIPITOR PO SCH (23:01)
[2018-09-29] MEDS: FLOMAX PO SCH (23:03)
[2018-09-30] MEDS: FLAGYL 500 MG/NS 500 MG/100 ML IVPB IV SCH ×4 (03:49→23:00)
[2018-09-30] MEDS: SYNTHROID PO SCH (06:15)
[2018-09-30] MEDS: HUMULIN R (PARKWAY) SUBQ SCH ×4 (07:42→21:40)
[2018-09-30] MEDS: MAXIPIME 1 GM in NS 50 ML IV SCH ×2 (08:18→22:00)
[2018-09-30] MEDS: MIRALAX PO SCH (09:55)
[2018-09-30] MEDS: ASPIRIN PO SCH (09:55)
[2018-09-30] MEDS: SEROQUEL PO SCH ×2 (09:55→22:00)
[2018-09-30] MEDS: APRESOLINE PO SCH ×3 (09:56→16:53)
[2018-09-30] MEDS: VIMPAT PO SCH ×2 (09:56→22:40)
[2018-09-30] MEDS: PRINIVIL PO SCH ×2 (09:56→22:40)
[2018-09-30] MEDS: BASAGLAR SUBQ SCH (09:56)
[2018-09-30] MEDS: TOPROL XL PO SCH (09:56)
[2018-09-30] MEDS: COLACE PO SCH (09:56)
[2018-09-30] MEDS: CULTURELLE FOR KIDS PO SCH ×3 (09:56→16:53)
[2018-09-30] MEDS: NORVASC PO SCH (09:56)
[2018-09-30] MEDS: LIPITOR PO SCH (22:40)
[2018-09-30] MEDS: FLOMAX PO SCH (22:40)
--- NOTE | 2018-10-01 00:29 | PROGRESS NOTE ---
DATE: 09/30/2018 SUBJECTIVE: The patient has no complaints. OBJECTIVE: Vital Signs: Reviewed. Temperature 98 degrees, pulse 74, respiratory 18, BP 152/85. General: Patient is awake. Currently she is in no distress. Her face does appear to be slightly puffy and swollen. HEENT: Normocephalic. Neck: Supple. Cardiovascular: Regular rate. ASSESSMENT: 1. Hypothyroidism. We will recheck and treat if necessary. 2. Hypertension. 3. Hypoglycemia, both were mildly elevated. 4. Hypoxic respiratory failure. PLAN: We will continue patient in hospital. Continue to encourage regular dieting. Further orders as needed. cc: Ricky Daley MD
[2018-10-01] MEDS: DUONEB (A & A) INH PRN ×4 (02:58→22:42)
--- NOTE | 2018-10-01 07:15 | Diag Imaging Result Doc PS360 ---
EXAM: CT HEAD W/O CONTRAST - 10/01/2018 HISTORY: facial drooping TECHNIQUE: CT head without contrast COMPARISON: 09/29/2018 FINDINGS: There are postsurgical changes of left craniotomy similar to prior. Drainage catheter in the left subdural space similar to prior. There is postsurgical encephalomalacia at the left temporal lobe, occipital lobe, and cerebellum similar to prior. There are chronic calcifications along the left tentorium. There are some atrophic changes similar to prior. There are moderate chronic microvascular ischemic changes. 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 There is no indication of recent infarct, although acute infarcts may not be immediately visible. There is no evidence of intracranial hemorrhage, mass effect, midline shift, or hydrocephalus. IMPRESSION: Postsurgical changes on the left similar to prior. Chronic ischemic changes. No visible acute intracranial abnormality. No hemorrhage or mass effect. The diamond wheel edger radiologist provided preliminary results at 1:23 AM on 10/01/2018. This exam was performed using automated exposure control, adjustment of mA or kV according to patient size, and/or use of iterative reconstruction technique. Electronically signed by Rogelio Baker 10/01/2018 7:13 AM
[2018-10-01] MEDS: HUMULIN R (PARKWAY) SUBQ SCH ×4 (08:20→20:27)
[2018-10-01] MEDS: PRINIVIL PO SCH ×2 (08:48→20:25)
[2018-10-01] MEDS: SYNTHROID PO SCH (08:48)
[2018-10-01] MEDS: SEROQUEL PO SCH ×2 (08:48→20:25)
[2018-10-01] MEDS: APRESOLINE PO SCH ×3 (08:48→16:40)
[2018-10-01] MEDS: NORVASC PO SCH (08:48)
[2018-10-01] MEDS: TOPROL XL PO SCH (08:48)
[2018-10-01] MEDS: CULTURELLE FOR KIDS PO SCH ×3 (08:48→16:40)
[2018-10-01] MEDS: ASPIRIN PO SCH (08:48)
[2018-10-01] MEDS: COLACE PO SCH (08:48)
[2018-10-01] MEDS: VIMPAT PO SCH ×2 (08:48→20:25)
[2018-10-01] MEDS: MIRALAX PO SCH (08:48)
[2018-10-01] MEDS: BASAGLAR SUBQ SCH (08:49)
[2018-10-01 10:18] LABS: BE 2.5 mmoll (-3.0-3.0); BLOOD TYPE ARTERIAL; HCO3-(ACT) 26.6 mmoll (20.0-26.0); METHB 0.6 % (0.0-1.5); O2(CT) 10.5 mL/dL (15.0-23.0); PCO2(98.6) 49 mmHg (35-45); SAMPLE BLOOD; SAO2 83.8 % (95.0-100.0); THB 9.1 g/dL (11.5-17.4); pH(98.6) 7.37 (7.35-7.45)
[2018-10-01 10:23] LABS: ALLEN TEST YES; MODALITY CANNULA; O2HB 81.5 % (95.0-99.0); PO2(98.6) 45 mmHg (60-100)
[2018-10-01] MEDS: MAXIPIME 1 GM in NS 50 ML IV SCH ×3 (12:04→20:26)
[2018-10-01] MEDS: FLAGYL 500 MG/NS 500 MG/100 ML IVPB IV SCH ×3 (12:04→22:27)
--- NOTE | 2018-10-01 15:22 | Diag Imaging Result Doc PS360 ---
EXAM: CHEST-PORTABLE - 10/01/2018 HISTORY: HYPOXEMIA TECHNIQUE: Portable chest COMPARISON: 09/29/2018 FINDINGS: There is stable mild cardiomegaly. There has been interval decrease in interstitial edema. There is residual mild prominence of central vascular markings. There is some haziness at the medial left base similar to prior. There is a tiny left pleural effusion. There is no pneumothorax identified. IMPRESSION: Decrease in interstitial edema compared to prior. Electronically signed by Rogelio Baker 10/01/2018 3:20 PM
[2018-10-01] MEDS: FLOMAX PO SCH (20:25)
[2018-10-01] MEDS: LIPITOR PO SCH (20:25)
--- NOTE | 2018-10-01 22:49 | PROGRESS NOTE ---
DATE: 10/01/2018 SUBJECTIVE: Patient has no new complaints. OBJECTIVE: Vital Signs: Reviewed. Temperature 97.3 degrees, pulse 98, respiratory rate 18, BP 164/97. General: Patient is awake. She is in no current distress. HEENT: Normocephalic. Neck: Supple. Cardiovascular: Regular rate. Chest: Clear. Abdomen: Soft. Extremities: Moves all extremities. Skin: She is noted to have edema to her face. No rashes. ASSESSMENT: 1. Type 2 diabetes. Blood sugars between 47 and 200. 2. Pulmonary edema. Chest x-ray today is improved. 3. Hypothyroidism. We will recheck. 4. Hypertension. 5. Adult failure to thrive. PLAN: Continue patient in the hospital. Continue to follow. Further orders as needed. cc: Ricky Daley MD
[2018-10-02] MEDS: FLAGYL 500 MG/NS 500 MG/100 ML IVPB IV SCH ×2 (03:06→07:34)
[2018-10-02] MEDS: HUMULIN R (PARKWAY) SUBQ SCH ×5 (06:04→23:05)
[2018-10-02] MEDS: SYNTHROID PO SCH (06:05)
[2018-10-02] MEDS: DUONEB (A & A) INH PRN ×4 (08:06→19:14)
[2018-10-02] MEDS: MAXIPIME 1 GM in NS 50 ML IV SCH ×2 (09:30→20:44)
[2018-10-02] MEDS: APRESOLINE PO SCH ×3 (10:42→17:16)
[2018-10-02] MEDS: BASAGLAR SUBQ SCH (10:43)
[2018-10-02] MEDS: ASPIRIN PO SCH (10:43)
[2018-10-02] MEDS: FLAGYL PO SCH ×3 (10:44→20:43)
[2018-10-02] MEDS: CULTURELLE FOR KIDS PO SCH ×3 (10:44→17:17)
[2018-10-02] MEDS: COLACE PO SCH (10:44)
[2018-10-02] MEDS: MIRALAX PO SCH (10:44)
[2018-10-02] MEDS: NORVASC PO SCH (10:44)
[2018-10-02] MEDS: SEROQUEL PO SCH ×2 (10:45→20:43)
[2018-10-02] MEDS: PRINIVIL PO SCH ×2 (10:45→20:44)
[2018-10-02] MEDS: VIMPAT PO SCH ×2 (10:45→20:43)
[2018-10-02] MEDS: TOPROL XL PO SCH (10:45)
[2018-10-02] MEDS: FLOMAX PO SCH (20:43)
[2018-10-02] MEDS: LIPITOR PO SCH (20:44)
--- NOTE | 2018-10-03 01:15 | PROGRESS NOTE ---
DATE: 02/27/2018 SUBJECTIVE: Patient has no new complaints. She actually will eat a little bit. Sitting up in the chair for the first time. PHYSICAL EXAMINATION: Vital Signs: Temperature 97.8 degrees, pulse 97, respiratory stable, BP 84. General: Patient is awake, alert, currently in no distress. HEENT: Normocephalic. Neck: Supple. Cardiovascular: Regular rate. Chest: Clear. ASSESSMENT: 1. Type 2 diabetes. 2. Hypoxemia. 3. Hypertension. 4. Adult failure to thrive. 5. Poor home social situation. PLAN: We will continue patient in the hospital over the weekend. It was felt that she may have pneumonia. She was started on antibiotics. We will continue these for now. Further orders as needed. cc: Ricky Daley MD MTDD
[2018-10-03] MEDS: FLAGYL PO SCH ×4 (02:09→20:23)
[2018-10-03] MEDS: HUMULIN R (PARKWAY) SUBQ SCH ×4 (06:06→20:24)
[2018-10-03] MEDS: SYNTHROID PO SCH (06:07)
[2018-10-03] MEDS: APRESOLINE PO SCH ×4 (10:33→19:30)
[2018-10-03] MEDS: COLACE PO SCH (10:33)
[2018-10-03] MEDS: PRINIVIL PO SCH ×2 (10:33→20:23)
[2018-10-03] MEDS: TOPROL XL PO SCH (10:34)
[2018-10-03] MEDS: SEROQUEL PO SCH ×2 (10:34→20:23)
[2018-10-03] MEDS: MAXIPIME 1 GM in NS 50 ML IV SCH ×2 (10:34→20:24)
[2018-10-03] MEDS: NORVASC PO SCH (10:34)
[2018-10-03] MEDS: MIRALAX PO SCH (10:35)
[2018-10-03] MEDS: CULTURELLE FOR KIDS PO SCH ×3 (10:35→19:30)
[2018-10-03] MEDS: ASPIRIN PO SCH (10:35)
[2018-10-03] MEDS: VIMPAT PO SCH ×2 (10:35→20:23)
[2018-10-03] MEDS: DUONEB (A & A) INH PRN ×2 (14:47→19:40)
--- NOTE | 2018-10-03 17:36 | PROGRESS NOTE ---
DATE: 10/03/2018 SUBJECTIVE: Patient without new complaints. PHYSICAL EXAM: Vital signs: Temperature 97.8, pulse 97, respiratory 18, BP 160/54. General: Patient is awake. She is quite vocal today. She is in no distress. Facial swelling has improved slightly. Chest: Clear, nonlabored. Abdomen: Soft, nondistended. Extremities: Moves all extremities. ASSESSMENT: 1. Diabetes, currently on Lantus. Her blood sugars have increased from 250 to 460. We will increase from 18 to 20 units. At one point, she has been on a JLP 1 and this has been stopped. We will have to try and find the reasoning, as this did appear to be keeping her blood sugars slightly improved. 2. Hypoxic respiratory failure, chronic. 3. Hypothyroidism. Recent TSH was mildly elevated, will recheck before treating. 4. Hypertension. 5. Adult failure to thrive. PLAN: We will continue patient in the hospital until which time she is able to transition to further care. cc: Ricky Daley MD
[2018-10-03] MEDS: FLOMAX PO SCH (20:23)
[2018-10-03] MEDS: LIPITOR PO SCH (20:23)
[2018-10-04] MEDS: DUONEB (A & A) INH PRN ×2 (01:00→11:19)
[2018-10-04] MEDS: FLAGYL PO SCH ×4 (02:04→21:29)
[2018-10-04] MEDS: HUMULIN R (PARKWAY) SUBQ SCH ×4 (06:05→21:30)
[2018-10-04] MEDS: SYNTHROID PO SCH (06:05)
[2018-10-04] MEDS: VIMPAT PO SCH ×2 (08:43→21:29)
[2018-10-04] MEDS: MIRALAX PO SCH (08:43)
[2018-10-04] MEDS: BASAGLAR SUBQ SCH (08:44)
[2018-10-04] MEDS: PRINIVIL PO SCH ×2 (08:44→21:29)
[2018-10-04] MEDS: CULTURELLE FOR KIDS PO SCH ×3 (08:44→16:46)
[2018-10-04] MEDS: NORVASC PO SCH (08:44)
[2018-10-04] MEDS: TOPROL XL PO SCH (08:44)
[2018-10-04] MEDS: ASPIRIN PO SCH (08:44)
[2018-10-04] MEDS: COLACE PO SCH (08:44)
[2018-10-04] MEDS: SEROQUEL PO SCH ×2 (08:44→21:29)
[2018-10-04] MEDS: APRESOLINE PO SCH ×3 (08:44→16:46)
[2018-10-04] MEDS: MAXIPIME 1 GM in NS 50 ML IV SCH ×3 (08:45→23:05)
--- NOTE | 2018-10-04 18:03 | PROGRESS NOTE ---
DATE: 10/04/2018 SUBJECTIVE: Patient has no complaints. PHYSICAL EXAMINATION: Vital Signs: Reviewed. Temperature 98 degrees, pulse 90, respiratory 20, BP 124/98. Blood sugar 186 to 296. General: The patient is awake, alert, very active today. She is in no respiratory distress. Lungs: Clear. ASSESSMENT: 1. Type 2 diabetes. 2. Hypoxemia. 3. Hypertension. 4. Adult failure to thrive. 5. Poor home social situation. PLAN: We will continue patient in the hospital over the weekend. It was felt that she may have pneumonia. She was started on antibiotics. We will continue these for now. Further orders as needed. cc: Ricky Daley MD MTDD
[2018-10-04] MEDS: LIPITOR PO SCH (21:30)
[2018-10-04] MEDS: FLOMAX PO SCH (21:30)
[2018-10-05] MEDS: FLAGYL PO SCH ×4 (02:12→20:29)
[2018-10-05] MEDS: SYNTHROID PO SCH (06:10)
[2018-10-05] MEDS: HUMULIN R (PARKWAY) SUBQ SCH ×4 (06:12→20:29)
[2018-10-05] MEDS: DUONEB (A & A) INH PRN ×3 (07:34→14:57)
[2018-10-05] MEDS: TOPROL XL PO SCH (08:19)
[2018-10-05] MEDS: NORVASC PO SCH (08:19)
[2018-10-05] MEDS: ASPIRIN PO SCH (08:19)
[2018-10-05] MEDS: APRESOLINE PO SCH ×3 (08:19→16:00)
[2018-10-05] MEDS: PRINIVIL PO SCH ×2 (08:19→20:28)
[2018-10-05] MEDS: SEROQUEL PO SCH ×2 (08:19→20:28)
[2018-10-05] MEDS: MIRALAX PO SCH (08:20)
[2018-10-05] MEDS: COLACE PO SCH (08:20)
[2018-10-05] MEDS: MAXIPIME 1 GM in NS 50 ML IV SCH ×2 (08:20→20:29)
[2018-10-05] MEDS: VIMPAT PO SCH ×2 (08:20→20:28)
[2018-10-05] MEDS: BASAGLAR SUBQ SCH (08:20)
[2018-10-05] MEDS: CULTURELLE FOR KIDS PO SCH ×3 (08:20→16:00)
--- NOTE | 2018-10-05 11:58 | PROGRESS NOTE ---
DATE: 10/05/2018 SUBJECTIVE: Patient reports no complaints. She is nonverbal to me today. OBJECTIVE: Vitals: Temperature 97.4 degrees, heart rate 88, respiratory rate 14, blood pressure 181/90, O2 saturation 93% 3 L nasal cannula. On general examination, this is a chronically ill- appearing 83-year-old female lying in bed, in no acute distress. Cardiovascular: S1, S2 heard. No murmurs, gallops, or rubs. Regular rate and rhythm. Respiratory exam clear bilaterally to auscultation. No work of breathing or using accessory muscles. Abdomen is soft, nontender to palpation. Bowel sounds present. No organomegaly. Extremities: No clubbing, cyanosis, or edema. Peripheral pulses present in all legs. Neurological: Patient alert, oriented x3. Moves 4 extremities. LABORATORY DATA: None. ASSESSMENT AND PLAN: 1. Community-acquired pneumonia. Patient is receiving cefepime for that condition. The patient is receiving 9 days of this medication. We will continue with the same management. 2. Diabetes mellitus, type 2. We will continue with sliding scale insulin and Accu-Chek before meals and also at bedtime. 3. Hypertension. Blood pressure is under control. We will continue with the same management. 4. Adult failure to thrive. We will continue with supplements. 5. Poor home social situation. The patient is being followed by the manager social work. Patient is going to be here for definitely more time here. cc: Onur Parada MD
[2018-10-05] MEDS: LIPITOR PO SCH (20:28)
[2018-10-05] MEDS: FLOMAX PO SCH (20:29)
[2018-10-06] MEDS: FLAGYL PO SCH ×4 (02:06→20:50)
[2018-10-06] MEDS: HUMULIN R (PARKWAY) SUBQ SCH ×4 (06:08→20:50)
[2018-10-06] MEDS: SYNTHROID PO SCH (06:09)
[2018-10-06] MEDS: DUONEB (A & A) INH PRN ×3 (08:05→16:05)
[2018-10-06] MEDS: MAXIPIME 1 GM in NS 50 ML IV SCH ×2 (08:34→20:50)
[2018-10-06] MEDS: CULTURELLE FOR KIDS PO SCH ×3 (08:34→16:18)
[2018-10-06] MEDS: APRESOLINE PO SCH ×3 (08:34→16:18)
[2018-10-06] MEDS: ASPIRIN PO SCH (08:34)
[2018-10-06] MEDS: MIRALAX PO SCH (08:34)
[2018-10-06] MEDS: PRINIVIL PO SCH ×2 (08:35→20:50)
[2018-10-06] MEDS: COLACE PO SCH (08:35)
[2018-10-06] MEDS: NORVASC PO SCH (08:35)
[2018-10-06] MEDS: SEROQUEL PO SCH ×2 (08:35→20:49)
[2018-10-06] MEDS: TOPROL XL PO SCH (08:35)
[2018-10-06] MEDS: BASAGLAR SUBQ SCH (08:59)
[2018-10-06] MEDS: VIMPAT PO SCH ×2 (08:59→20:50)
--- NOTE | 2018-10-06 11:27 | PROGRESS NOTE ---
DATE: 10/06/2018 SUBJECTIVE: Patient reports feeling fine. There are no complaints today. No fever or chills reported. No acute issues noted as per nursing staff overnight. OBJECTIVE: Vital Signs: Temperature 98.2 degrees, heart rate 90, respiratory rate 19, blood pressure 152/68, O2 saturation 100% on room air. General: This is a chronically ill-appearing 83- year-old female lying in bed, in no acute distress. Cardiovascular: S1, S2 heard. No murmurs, gallops, or rubs. Regular rate and rhythm. Respiratory: Exam clear bilaterally to auscultation. No work of breathing or using accessory muscles. Abdomen: Soft, nontender to palpation. Bowel sounds present. No organomegaly. Extremities: No clubbing, cyanosis, or edema. Peripheral pulses present in both legs. Neurological: Patient is alert, awake. Disoriented in place. ASSESSMENT AND PLAN: 1. Health-care associated pneumonia. The patient is getting cefepime for this condition. Today is day #13 of this medication, planning to continue with 2 weeks of that medication. 2. Diabetes mellitus, type 2. We will continue with sliding scale insulin and Accu-Chek before meals and also at bedtime. 3. Adult failure to thrive. We will continue with nutritional supplement. 4. Poor social situation. rehabilitation caseworker on board. DISPOSITION: We will continue to monitor this patient closely. The patient is going to be here for definitely more time. cc: Onur Parada MD
[2018-10-06] MEDS: LIPITOR PO SCH (20:50)
[2018-10-06] MEDS: FLOMAX PO SCH (20:50)
[2018-10-07] MEDS: DUONEB (A & A) INH PRN (00:16)
[2018-10-07] MEDS: FLAGYL PO SCH ×4 (02:21→20:28)
[2018-10-07] MEDS: TYLENOL PO PRN (04:35)
[2018-10-07] MEDS: CULTURELLE FOR KIDS PO SCH ×3 (08:03→17:13)
[2018-10-07] MEDS: MAXIPIME 1 GM in NS 50 ML IV SCH ×2 (08:03→20:28)
[2018-10-07] MEDS: MIRALAX PO SCH (08:03)
[2018-10-07] MEDS: VIMPAT PO SCH ×2 (08:04→20:28)
[2018-10-07] MEDS: BASAGLAR SUBQ SCH (08:04)
[2018-10-07] MEDS: TOPROL XL PO SCH (08:04)
[2018-10-07] MEDS: APRESOLINE PO SCH ×3 (08:04→17:13)
[2018-10-07] MEDS: NORVASC PO SCH (08:04)
[2018-10-07] MEDS: PRINIVIL PO SCH ×2 (08:04→20:28)
[2018-10-07] MEDS: ASPIRIN PO SCH (08:04)
[2018-10-07] MEDS: COLACE PO SCH (08:04)
[2018-10-07] MEDS: SEROQUEL PO SCH ×2 (08:04→20:28)
[2018-10-07] MEDS: HUMULIN R (PARKWAY) SUBQ SCH ×3 (10:17→15:53)
[2018-10-07] MEDS: SYNTHROID PO SCH (10:17)
--- NOTE | 2018-10-07 13:45 | PROGRESS NOTE ---
DATE: 10/07/2018 SUBJECTIVE: Patient reports feeling fine. She has been a little bit agitated this morning, but no other complaints noted. OBJECTIVE: Vital Signs: Temperature 97.6 degrees, heart rate 82, respiratory rate 20, blood pressure 158/76 and O2 saturation 100% on 3 L. General: This is a chronically ill-appearing 83- year-old female lying in bed in no acute distress. Cardiovascular: S1, S2 heard. No murmurs, gallops, or rubs. Regular rate and rhythm. Respiratory: Minimal coarse breath sounds in both pulmonary bases. Patient not using any accessory muscles or having work of breathing. Abdomen: Soft. Nontender to palpation. Bowel sounds present. No organomegaly. Extremities: No clubbing, cyanosis, or edema. Neurological: Patient is alert, but confuse. Disoriented to place. ASSESSMENT AND PLAN: 1. Healthcare-associated pneumonia. The patient is receiving cefepime for this condition. Today is day #14 for this medication. I think at this point we are going to continue with this medication. Tomorrow, we will stop that medication. 2. Diabetes mellitus type 2. We will continue with sliding scale insulin. Accu-Chek before meals and also at bedtime. 3. Protein calorie malnutrition. We will continue with nutritional supplement. 4. Poor social conditions. funeral workers on board. cc: Onur Parada MD MTDD
[2018-10-07] MEDS: LIPITOR PO SCH (20:28)
[2018-10-07] MEDS: FLOMAX PO SCH (20:28)
[2018-10-08] MEDS: MAXIPIME 1 GM in NS 50 ML IV SCH ×2 (00:56→08:59)
[2018-10-08] MEDS: HUMULIN R (PARKWAY) SUBQ SCH ×5 (00:56→21:19)
[2018-10-08] MEDS: FLAGYL PO SCH ×4 (03:37→21:17)
[2018-10-08] MEDS: SYNTHROID PO SCH (06:17)
[2018-10-08] MEDS: VIMPAT PO SCH ×2 (08:45→21:17)
[2018-10-08] MEDS: CULTURELLE FOR KIDS PO SCH ×3 (08:45→17:57)
[2018-10-08] MEDS: MIRALAX PO SCH (08:46)
[2018-10-08] MEDS: TOPROL XL PO SCH (08:46)
[2018-10-08] MEDS: SEROQUEL PO SCH ×2 (08:46→21:17)
[2018-10-08] MEDS: NORVASC PO SCH (08:46)
[2018-10-08] MEDS: PRINIVIL PO SCH ×2 (08:46→21:18)
[2018-10-08] MEDS: APRESOLINE PO SCH ×3 (08:46→17:57)
[2018-10-08] MEDS: COLACE PO SCH (08:46)
[2018-10-08] MEDS: ASPIRIN PO SCH (08:46)
[2018-10-08] MEDS: BASAGLAR SUBQ SCH (09:40)
--- NOTE | 2018-10-08 14:04 | PROGRESS NOTE ---
DATE: 10/08/2018 SUBJECTIVE: The patient is in his usual state. Sometimes, he got agitated but no other issues noted. OBJECTIVE: Vital Signs: Temperature 97.9 degrees, heart rate 95, respiratory rate 20, blood pressure 197/91, O2 saturation 99% on 3 L of nasal cannula. General Examination: This is a chronically ill-appearing, 83-year-old, female lying in bed, in no acute distress. Cardiovascular Examination: S1 and S2 heard. No murmurs, gallops, or rubs. Regular rate and rhythm. Neurological Examination: Sometimes the patient gets agitated but most of the time, she is awake but confused and disoriented in place. ASSESSMENT AND PLAN: 1. Healthcare-associated pneumonia. Patient has completed 14 days of cefepime. We are going to stop this medication today. 2. Diabetes mellitus type 2. We will continue with sliding scale insulin, and Accu-Chek before meals and also at bedtime. 3. Protein-calorie malnutrition. We will continue with nutritional supplements like Ensure. 4. Poor social conditions. propeller layout worker following with this patient. cc: Onur Parada MD
[2018-10-08] MEDS: FLOMAX PO SCH (21:16)
[2018-10-08] MEDS: LIPITOR PO SCH (21:17)
[2018-10-09] MEDS: FLAGYL PO SCH ×4 (03:41→21:55)
[2018-10-09] MEDS: HUMULIN R (PARKWAY) SUBQ SCH ×5 (06:12→21:56)
[2018-10-09] MEDS: SYNTHROID PO SCH (06:13)
[2018-10-09] MEDS: DUONEB (A & A) INH PRN (08:33)
[2018-10-09] MEDS: PRINIVIL PO SCH ×2 (08:40→21:55)
[2018-10-09] MEDS: ASPIRIN PO SCH (08:40)
[2018-10-09] MEDS: SEROQUEL PO SCH ×2 (08:40→21:55)
[2018-10-09] MEDS: VIMPAT PO SCH ×2 (08:40→21:55)
[2018-10-09] MEDS: TOPROL XL PO SCH (08:41)
[2018-10-09] MEDS: BASAGLAR SUBQ SCH (08:41)
[2018-10-09] MEDS: MIRALAX PO SCH ×2 (08:41→08:54)
[2018-10-09] MEDS: CULTURELLE FOR KIDS PO SCH ×3 (08:41→17:09)
[2018-10-09] MEDS: COLACE PO SCH (08:41)
[2018-10-09] MEDS: NORVASC PO SCH (08:41)
[2018-10-09] MEDS: APRESOLINE PO SCH ×3 (08:41→17:08)
--- NOTE | 2018-10-09 11:24 | PROGRESS NOTE ---
DATE: 10/09/2018 SUBJECTIVE: The patient resting quietly in bed. No problems identified. OBJECTIVE: Vital Signs: Temperature 97.8 degrees, pulse 86, respirations 20, blood pressure 178/80, saturating 100% on 2 L via nasal cannula. General: This is an 83-year-old female who is lying in the bed resting quietly. HEENT: Normocephalic, atraumatic. Normal ENT inspection. Neck: Normal inspection. Normal range of motion. Lungs: Clear to auscultation bilaterally with equal lung expansion and chest wall movement. Heart: Regular rate and rhythm. No murmurs, rubs, or gallops. Abdomen: Soft, nontender, and nondistended. Bowel sounds are present x4 quadrants. Musculoskeletal: She has 5/5 strength x4 extremities. Neurological: The cranial nerves II-XII appear grossly intact. Most of the time the patient is alert and awake, but confused and disoriented with agitation at times. ASSESSMENT: 1. Healthcare-associated pneumonia, resolved. 2. Diabetes type 2. 3. Protein calorie malnutrition. 4. Poor social conditions. PLAN: We discontinued her antibiotics yesterday. I am going to stop her O2 via nasal cannula and continue her current medication regimen. Continue her pattern blood sugars with sliding scale insulin and current insulin regimen. Blood sugars continue to run in the upper 200s-300s. She has continued to be supplemented with Ensure, and social Work continues to follow this patient to obtain all of her legal issues for possible long-term care placement. Dictated by EDDIE Vicente for Onur Parada MD Addendum: Patient seen and examined by myself. Agree with EDDIE note. It reflects my assessment and plan. cc: EDDIE Vicente MD [facility]
[2018-10-09] MEDS: LIPITOR PO SCH (21:55)
[2018-10-09] MEDS: FLOMAX PO SCH (21:55)
[2018-10-10] MEDS: FLAGYL PO SCH ×4 (02:06→21:41)
[2018-10-10] MEDS: SYNTHROID PO SCH (06:31)
[2018-10-10] MEDS: HUMULIN R (PARKWAY) SUBQ SCH ×4 (06:31→21:42)
[2018-10-10] MEDS: MIRALAX PO SCH (08:03)
[2018-10-10] MEDS: VIMPAT PO SCH ×2 (08:04→21:41)
[2018-10-10] MEDS: COLACE PO SCH (08:04)
[2018-10-10] MEDS: ASPIRIN PO SCH (08:04)
[2018-10-10] MEDS: TOPROL XL PO SCH (08:05)
[2018-10-10] MEDS: APRESOLINE PO SCH ×3 (08:05→17:33)
[2018-10-10] MEDS: NORVASC PO SCH (08:05)
[2018-10-10] MEDS: SEROQUEL PO SCH ×2 (08:05→21:41)
[2018-10-10] MEDS: PRINIVIL PO SCH ×2 (08:05→21:41)
[2018-10-10] MEDS: CULTURELLE FOR KIDS PO SCH ×3 (08:05→17:32)
[2018-10-10] MEDS: BASAGLAR SUBQ SCH (08:06)
[2018-10-10] MEDS: DUONEB (A & A) INH PRN ×3 (08:14→16:01)
--- NOTE | 2018-10-10 10:09 | PROGRESS NOTE ---
DATE: 10/10/2018 SUBJECTIVE: Patient resting quietly in bed. No issues or problems identified at this time. OBJECTIVE: Vital signs: Temperature 97.5 degrees, pulse 81, respirations 18, blood pressure 196/83, saturating 97% on room air. General: This is an 83-year-old female who is sitting up in the bed, answering questions appropriately this morning with yes, no answers. HEENT: Normocephalic, atraumatic. Normal ENT inspection. Oropharynx and nares are clear. Eyes, pupils are equal, round, reactive to light and accommodation. Extraocular movements are intact. Lungs: Clear to auscultation bilaterally with equal lung expansion and chest wall movement. Heart: Regular rate and rhythm. No murmurs, rubs, or gallops. Abdomen: Soft, nontender, nondistended. Bowel sounds are present x4 quadrants. Neurological: The patient is alert and awake with confusion noted and has agitation at times. ASSESSMENT: 1. Diabetes type 2. 2. Protein calorie malnutrition. 3. Dementia. 4. Poor social conditions. PLAN: We will continue with her current diabetic medication regimen. We are going to change her diet to a mechanical soft diet, diabetic and vegetarian as patient is noted to have had a couple of episodes of coughing with regular food, so we are going to try to be a little softer and see if she tolerates that better. She will continue to be supplemented with Ensure. Continue her current medication regimen and Surg Nurse continue to work on all of her legal issues for possible long-term placement. Dictated by EDDIE Vicente for Onur Parada MD Addendum: Patient seen and examined by myself. Agree with EDDIE note. It reflects my assessment and plan. cc: EDDIE Vicente MD [facility]
[2018-10-10] MEDS: FLOMAX PO SCH (21:41)
[2018-10-10] MEDS: LIPITOR PO SCH (21:41)
[2018-10-11] MEDS: FLAGYL PO SCH ×4 (01:59→22:25)
[2018-10-11] MEDS: SYNTHROID PO SCH ×3 (06:21→11:27)
[2018-10-11] MEDS: HUMULIN R (PARKWAY) SUBQ SCH ×4 (06:22→21:22)
--- NOTE | 2018-10-11 10:44 | PROGRESS NOTE ---
DATE: 10/11/2018 SUBJECTIVE: Patient resting quietly in bed. No complaints voiced at this time. OBJECTIVE: Vital signs: Temperature 97.4 degrees, pulse 82, respirations 18, blood pressure 138/65, saturating 94% on 2 L via nasal cannula. HEMNT: Normocephalic, atraumatic. Normal ENT inspection. Oropharynx and nares are clear. Eyes: Pupils are equal, round, and reactive to light and accommodation. Extraocular movements are intact. Neck: Normal inspection. Normal range of motion. Lungs were clear to auscultation bilaterally with equal lung expansion and chest wall movement. Heart with regular rate and rhythm. No murmurs, rubs, or gallops. Abdomen: Soft, nontender, nondistended. Bowel sounds are present x4 quadrants. Musculoskeletal: 5/5 strength x4 extremities. Neurological: The cranial nerves 2-12 appear grossly intact. LABORATORY DATA: No new labs today. ASSESSMENT: 1. Hypoxemia. The patient was noted to be off her O2 yesterday but then around lunch time, she had a drop in her O2 saturation to 83% on room air, placed on O2 via nasal cannula, and it came up to 92%. She had a recent pneumonia and received 14 days of cefepime, and that has been discontinued. She has been afebrile, but we are going to check a CT of the thorax today without contrast, just to evaluate if there are any other issues occurring causing her to have a drop in her O2 saturation. 2. Diabetes, type 2. We will continue with her current medication regimen. This morning her blood sugar was 149 by fingerstick. 3. Protein-calorie malnutrition. Continue with her mechanical soft diabetic vegetarian diet. That seems to have helped the coughing. She certainly could have had an aspiration pneumonia with her coughing episodes prior to us changing her diet yesterday. 4. Dementia, stable. 5. Poor social conditions. We continue to wait on Epidemiology Investigator with legal issues for long- term placement. Dictated by EDDIE Vicente for Onur Parada MD Addendum: Patient is seen and examined by myself. Agree with EDDIE note. It reflects my assessment and plan. cc: EDDIE Vicente MD [facility]
[2018-10-11] MEDS: SEROQUEL PO SCH ×2 (11:25→22:15)
[2018-10-11] MEDS: COLACE PO SCH (11:26)
[2018-10-11] MEDS: CULTURELLE FOR KIDS PO SCH ×3 (11:26→22:15)
[2018-10-11] MEDS: VIMPAT PO SCH ×2 (11:26→22:26)
[2018-10-11] MEDS: TOPROL XL PO SCH (11:26)
[2018-10-11] MEDS: APRESOLINE PO SCH ×3 (11:27→22:15)
[2018-10-11] MEDS: ASPIRIN PO SCH (11:27)
[2018-10-11] MEDS: NORVASC PO SCH (11:27)
[2018-10-11] MEDS: PRINIVIL PO SCH ×2 (11:27→22:25)
[2018-10-11] MEDS: BASAGLAR SUBQ SCH (11:28)
[2018-10-11] MEDS: MIRALAX PO SCH (11:28)
[2018-10-11] MEDS: DUONEB (A & A) INH PRN (11:56)
--- NOTE | 2018-10-11 15:57 | Diag Imaging Result Doc PS360 ---
EXAM: CT THORAX W/O CONTRAST HISTORY: Pneumonia,Hypoxemia TECHNIQUE: CT chest without contrast COMPARISON: None. FINDINGS: There are small bilateral pleural effusions measuring under 2.5 cm posteriorly and inferiorly in the midline. The heart is enlarged and there is a small pericardial effusion. There is pulmonary edema as well as body wall edema. There are infiltrates and atelectasis in the lower lobes as well as infiltrates in the upper lobes. IMPRESSION: 1.Cardiomegaly with pulmonary edema, pleural effusions, and a pericardial effusion 2.Basilar atelectasis and small bilateral infiltrates This exam was performed using automated exposure control, adjustment of mA or kV according to patient size, and/or use of iterative reconstruction technique. Electronically signed by Gabe Devlin 10/11/2018 3:55 PM
[2018-10-11] MEDS: FLOMAX PO SCH (22:25)
[2018-10-11] MEDS: LIPITOR PO SCH (22:25)
[2018-10-12] MEDS: FLAGYL PO SCH (02:49)
[2018-10-12] MEDS: HUMULIN R (PARKWAY) SUBQ SCH ×4 (06:23→21:28)
[2018-10-12] MEDS: SYNTHROID PO SCH (06:50)
[2018-10-12] MEDS: LASIX PO SCH (08:44)
[2018-10-12] MEDS: MIRALAX PO SCH (08:44)
[2018-10-12] MEDS: SEROQUEL PO SCH ×2 (08:44→21:29)
[2018-10-12] MEDS: COLACE PO SCH (08:44)
[2018-10-12] MEDS: CULTURELLE FOR KIDS PO SCH ×3 (08:45→16:27)
[2018-10-12] MEDS: APRESOLINE PO SCH ×4 (08:45→16:27)
[2018-10-12] MEDS: PRINIVIL PO SCH ×2 (08:45→21:29)
[2018-10-12] MEDS: NORVASC PO SCH (08:45)
[2018-10-12] MEDS: TOPROL XL PO SCH (08:45)
[2018-10-12] MEDS: BASAGLAR SUBQ SCH (08:45)
[2018-10-12] MEDS: ASPIRIN PO SCH (08:45)
[2018-10-12] MEDS: VIMPAT PO SCH ×2 (08:53→21:29)
[2018-10-12] MEDS: LIPITOR PO SCH (21:29)
[2018-10-12] MEDS: FLOMAX PO SCH (21:29)
--- NOTE | 2018-10-12 22:43 | PROGRESS NOTE ---
DATE: 10/12/2018 SUBJECTIVE: Patient without any new complaints. OBJECTIVE: General: She is awake, alert, oriented. HEENT: Face appears to be slightly less swollen than it had in the past. Lungs: Clear. CARDIOVASCULAR: Regular rate. ASSESSMENT: 1. Hypoxemia. 2. Edema. 3. Diabetes type 2. 4. Protein calorie malnutrition. 5. Dementia. 6. Poor social situation. PLAN: We will continue Lasix. We will stop her antibiotics. Continue to follow. Further orders as needed. cc: Ricky Daley MD
[2018-10-13] MEDS: INSTA-GLUCOSE PO PRN (02:33)
[2018-10-13] MEDS: HUMULIN R (PARKWAY) SUBQ SCH ×3 (06:04→15:14)
[2018-10-13] MEDS: SYNTHROID PO SCH (06:29)
[2018-10-13] MEDS: NORVASC PO SCH (09:59)
[2018-10-13] MEDS: APRESOLINE PO SCH ×3 (09:59→17:29)
[2018-10-13] MEDS: VIMPAT PO SCH ×2 (09:59→21:09)
[2018-10-13] MEDS: MIRALAX PO SCH (09:59)
[2018-10-13] MEDS: ASPIRIN PO SCH (09:59)
[2018-10-13] MEDS: PRINIVIL PO SCH ×2 (09:59→21:10)
[2018-10-13] MEDS: TOPROL XL PO SCH (10:00)
[2018-10-13] MEDS: SEROQUEL PO SCH ×2 (10:00→21:09)
[2018-10-13] MEDS: LASIX PO SCH ×2 (10:00→21:10)
[2018-10-13] MEDS: COLACE PO SCH (10:00)
[2018-10-13] MEDS: CULTURELLE FOR KIDS PO SCH ×3 (10:00→17:29)
[2018-10-13] MEDS: BASAGLAR SUBQ SCH ×2 (10:00→10:47)
--- NOTE | 2018-10-13 15:12 | Diag Imaging Result Doc PS360 ---
EXAM: CHEST-PORTABLE HISTORY: chest pain TECHNIQUE: Portable chest single view COMPARISON: 10/01/2018 FINDINGS: Poor inspiratory effort. Interval development of infiltrates in the right upper lobe. Cardiomegaly remains. Right hemidiaphragm is elevated. A shunt catheter overlies the chest. IMPRESSION: Interval development of infiltrates in the right upper lobe. Electronically signed by Gabe Devlin 10/13/2018 3:10 PM
[2018-10-13 16:15] LABS: BASO# 0.02 X1000 (0.0-0.2); BASO% 0.3 % (0.0-0.8); EOS# 0.12 X1000 (0.0-0.7); EOS% 1.6 % (0.0-10.0); HEMATOCRIT 26.1 % (37.0-47.0); HEMOGLOBIN 8.2 g/dL (12.0-16.0); IMM GRAN# 0.06 X1000 (0.0-0.04); IMM GRAN% 0.8 % (0.0-0.5); LYMPH# 1.01 X1000 (1.2-3.4); LYMPH% 13.9 % (20.5-51.1); MCH 25.9 PG (27-31); MCHC 31.4 g/dL (33-37); MCV 82.6 FL (81-99); MONO# 0.74 X1000 (0.11-0.59); MONO% 10.2 % (1.7-9.3); MPV 10.8 FL (7.4-10.4); NEUT# 5.34 X1000 (1.4-6.5); NEUT% 73.2 % (42.2-75.2); PLT 295 X1000 (130-400); RBC 3.16 XMIL (4.2-5.4); RDW 16.5 % (11.5-14.5); WBC 7.29 X1000 (4.8-10.8)
[2018-10-13 16:18] LABS: AGAP 8; ALBUMIN 3.6 g/dL (3.5-5.0); ALKALINE PHOSPHATASE 88 U/L (32-104); BUN 15 mg/dL (8-22); CALCIUM 8.7 mg/dL (8.8-10.2); CHLORIDE 100 mmol/L (98-107); COSMO 283; CREATININE 0.7 mg/dL (0.5-0.9); ESTIMATED GFR > 60; GLUCOSE 289 mg/dL (70-104); GOT 14 U/L (10-30); GPT 14 U/L (10-36); POTASSIUM 4.4 mmol/L (3.5-5.1); SODIUM 136 mmol/L (136-145); TCO2 28 mmol/L (25-35); TOTAL PROTEIN 6.7 g/dL (6.3-8.3)
[2018-10-13 16:36] LABS: PROTIME 13.7 Seconds (11.0-16.0)
--- NOTE | 2018-10-13 18:33 | EKG Report ---
Test Performed on : 10/13/2018 3:19:31 PM Test Reason : CHEST PAIN Blood Pressure : / mmHG Vent. Rate : 090 BPM Atrial Rate : 090 BPM P-R Int : 188 ms QRS Dur : 098 ms QT Int : 378 ms P-R-T Axes : 018 -19 071 degrees QTc Int : 462 ms Normal sinus rhythm. Possible Anterior infarct , age undetermined Abnormal ECG When compared with ECG of 21-APR-2018 22:37, premature atrial complexes. are no longer present Confirmed by Duong Kearney MD ([id number]) on 10/18/2018 4:21:08 AM
--- NOTE | 2018-10-13 19:14 | PROGRESS NOTE ---
DATE: 10/13/2018 SUBJECTIVE: Patient herself unfortunately due to her confusion and chronic dementia, has no current complaints. PHYSICAL EXAMINATION: Vital Signs: Temp 97, pulse 80s, respiratory 20, BP 115/67. Blood sugars 48 to 169. General: Patient is awake. She is in no obvious respiratory distress. She is noted, however, to have some facial swelling. Abdomen: Appears to be more swollen and she has some edema in her lower extremities. HEENT: Normocephalic. Neck: Supple. No apparent JVD. Cardiovascular: Regular rate. Chest: Decreased breath sounds. Difficult to hear as patient is vocalizing quite loudly this morning. Abdomen: Soft, but does appear somewhat swollen compared to usual. Extremities: Moves all extremities with 1+ edema. ASSESSMENT: 1. Hypoxemia. 2. Edema. 3. Questionable anasarca. Unfortunately, Ms. Bajwa' weights are very poorly checked partially because of her frequent moving about and she refuses to stand on a scale, so it has to be done by bed weight scale. However, it does appear that over the last week she has continued to slowly gain weight at times. 4. Diabetes. 5. Hypertension. 6. Chronic dementia. 7. Adult failure to thrive. PLAN: We will continue her current care. We will increase her Lasix to 40 mg twice a day. Unfortunately, her chest x-ray appears that she may have increased infiltrates, which has been a problem as of late. Unfortunately, it has been extremely difficult to keep an IV. Each time one is started, Ms. Bajwa frequently has pulled it out or has rolled about in the bed enough to dislodge it. Therefore, we will start her on oral Zyvox and Omnicef. We will check an echo as it does appear she is developing some anasarca. I am afraid that she has continued to gradually decline over the past several weeks. cc: Ricky Daley MD
[2018-10-13] MEDS: DUONEB (A & A) INH SCH (19:31)
[2018-10-13] MEDS: FLOMAX PO SCH (21:10)
[2018-10-13] MEDS: OMNICEF PO SCH (21:10)
[2018-10-13] MEDS: ZYVOX PO SCH (21:10)
[2018-10-13] MEDS: LIPITOR PO SCH (21:10)
[2018-10-14] MEDS: DUONEB (A & A) INH SCH ×3 (01:41→07:34)
[2018-10-14] MEDS: SYNTHROID PO SCH (05:59)
[2018-10-14] MEDS: HUMULIN R (PARKWAY) SUBQ SCH ×4 (07:46→16:10)
[2018-10-14] MEDS: APRESOLINE PO SCH ×3 (09:14→18:07)
[2018-10-14] MEDS: PRINIVIL PO SCH ×2 (09:14→21:05)
[2018-10-14] MEDS: LASIX PO SCH ×2 (09:14→21:06)
[2018-10-14] MEDS: BASAGLAR SUBQ SCH (09:15)
[2018-10-14] MEDS: NORVASC PO SCH (09:15)
[2018-10-14] MEDS: ZYVOX PO SCH ×2 (09:15→21:04)
[2018-10-14] MEDS: TOPROL XL PO SCH (09:15)
[2018-10-14] MEDS: VIMPAT PO SCH ×2 (09:15→21:05)
[2018-10-14] MEDS: OMNICEF PO SCH ×2 (09:15→21:05)
[2018-10-14] MEDS: CULTURELLE FOR KIDS PO SCH ×3 (09:15→18:07)
[2018-10-14] MEDS: ASPIRIN PO SCH (09:15)
[2018-10-14] MEDS: SEROQUEL PO SCH ×2 (09:15→21:04)
[2018-10-14] MEDS: COLACE PO SCH (09:15)
[2018-10-14] MEDS: MIRALAX PO SCH (09:15)
[2018-10-14] MEDS: TYLENOL PO PRN (10:53)
[2018-10-14] MEDS: FLOMAX PO SCH (21:05)
[2018-10-14] MEDS: LIPITOR PO SCH (21:05)
--- NOTE | 2018-10-14 23:31 | PROGRESS NOTE ---
DATE: 10/14/2018 SUBJECTIVE: Patient without complaints. PHYSICAL EXAMINATION: Vital Signs: Reviewed. The staff has to frequently help her eat. Temperature 97.6 degrees, pulse 90, respiratory 18, BP 146/76. General: Patient is awake, currently in no distress. Neck: Supple. Cardiovascular: Regular rate. Chest: Clear and unlabored. No crackles. Abdomen: Soft, nondistended, nontender. ASSESSMENT: 1. Chronic hypoxic respiratory failure. 2. Diabetes. 3. Dementia. 4. Edema, appears to be improving after Lasix. 5. Others. PLAN: Continue patient in the hospital. Continue Lasix. We will attempt to check an echo, but I doubt this is successful due to her mental status and we will follow. cc: Ricky Daley MD
--- NOTE | 2018-10-14 23:35 | ECHO REPORT ---
ORDER DATE: 10/14/2018 MEASUREMENTS: Left ventricular internal diameter in diastole 4.2, left ventricular internal diameter in systole 2.2, septal thickness 1.0, left atrium 2.7, aortic root 3.3. SUMMARY: 1. Adequate quality study. 2. Very mild sclerosis of trileaflet aortic valve demonstrated with normal aortic valve opening evident. Peak gradient across aortic valve is less than 10 mmHg. Mitral, tricuspid, and pulmonic valves are without evidence of structural abnormality. There is trace tricuspid regurgitation. Aortic root is normal in size. 3. Normal left ventricular dimensions suggested on 2-dimensional images. Estimated left ejection fraction appears to be at least 70%. No regional wall motion abnormalities are evident. Left atrium is upper normal in size. Right atrium and right ventricle normal in size with grossly preserved right ventricular systolic function. 4. Small circumferential pericardial effusion is demonstrated. 5. Appearance of inferior vena cava suggests normal central venous pressure. cc: MD Robert Jaramillo CRNP
[2018-10-15] MEDS: HUMULIN R (PARKWAY) SUBQ SCH ×4 (00:33→17:57)
[2018-10-15] MEDS: SYNTHROID PO SCH (06:04)
[2018-10-15] MEDS: DUONEB (A & A) INH PRN (08:07)
[2018-10-15] MEDS: VIMPAT PO SCH ×2 (08:49→22:02)
[2018-10-15] MEDS: COLACE PO SCH (08:50)
[2018-10-15] MEDS: SEROQUEL PO SCH ×2 (08:50→22:02)
[2018-10-15] MEDS: APRESOLINE PO SCH ×3 (08:50→17:55)
[2018-10-15] MEDS: NORVASC PO SCH (08:50)
[2018-10-15] MEDS: TOPROL XL PO SCH (08:50)
[2018-10-15] MEDS: LASIX PO SCH ×2 (08:50→22:04)
[2018-10-15] MEDS: ASPIRIN PO SCH (08:50)
[2018-10-15] MEDS: OMNICEF PO SCH ×2 (08:50→22:02)
[2018-10-15] MEDS: CULTURELLE FOR KIDS PO SCH ×3 (08:50→17:55)
[2018-10-15] MEDS: BASAGLAR SUBQ SCH (08:50)
[2018-10-15] MEDS: ZYVOX PO SCH ×2 (08:50→22:04)
[2018-10-15] MEDS: PRINIVIL PO SCH ×2 (08:50→22:04)
[2018-10-15] MEDS: MIRALAX PO SCH (08:51)
[2018-10-15] MEDS: FLOMAX PO SCH (22:02)
[2018-10-15] MEDS: LIPITOR PO SCH (22:04)
--- NOTE | 2018-10-16 00:49 | PROGRESS NOTE ---
DATE: 10/15/2018 SUBJECTIVE: Patient currently has no complaints. PHYSICAL EXAMINATION: Vital Signs: Temperature 97.2 degrees, pulse 88, respiratory 18, BP 125/96. General: Patient is awake, alert. She is in no distress. HEENT: Normocephalic. Neck: Supple. Cardiovascular: Regular rate. Chest: Clear and unlabored. Extremities: Moves all extremities. Skin: Warm, dry. She has no rashes. Has much less swelling of her face. ASSESSMENT: 1. Anasarca, resolved. 2. Dementia. 3. Diabetes. 4. Hypertension. PLAN: We will continue patient in the hospital. Continue Lasix. We will hopefully attempt to wean soon. Echocardiogram was essentially negative with normal ejection fraction. cc: Ricky Daley MD
[2018-10-16] MEDS: HUMULIN R (PARKWAY) SUBQ SCH ×5 (05:12→21:07)
[2018-10-16] MEDS: SYNTHROID PO SCH (06:01)
[2018-10-16] MEDS: BASAGLAR SUBQ SCH (09:35)
[2018-10-16] MEDS: OMNICEF PO SCH ×2 (09:36→21:01)
[2018-10-16] MEDS: NORVASC PO SCH (09:36)
[2018-10-16] MEDS: ZYVOX PO SCH ×2 (09:36→21:01)
[2018-10-16] MEDS: ASPIRIN PO SCH (09:36)
[2018-10-16] MEDS: SEROQUEL PO SCH ×2 (09:36→21:00)
[2018-10-16] MEDS: VIMPAT PO SCH ×2 (09:36→21:01)
[2018-10-16] MEDS: TOPROL XL PO SCH (09:36)
[2018-10-16] MEDS: PRINIVIL PO SCH ×2 (09:37→21:01)
[2018-10-16] MEDS: LASIX PO SCH ×2 (09:37→21:01)
[2018-10-16] MEDS: MIRALAX PO SCH (09:37)
[2018-10-16] MEDS: COLACE PO SCH (09:37)
[2018-10-16] MEDS: CULTURELLE FOR KIDS PO SCH ×3 (09:37→18:25)
[2018-10-16] MEDS: APRESOLINE PO SCH ×4 (09:37→18:25)
--- NOTE | 2018-10-16 16:33 | PROGRESS NOTE ---
DATE: 10/16/2018 SUBJECTIVE: The patient has no complaints. PHYSICAL EXAMINATION: Vital Signs: Reviewed. Temperature 97 degrees, pulse 75, respiratory rate 18, blood pressure 138/71. Blood sugars 115 to 150. Weight is down approximately 4 pounds to 148. General: The patient is awake, alert. She is in no respiratory distress. Her facial swelling appears to be somewhat improved today compared to the past few days. Cardiovascular: Regular rate. Chest: Clear, nonlabored. No crackles, no wheezing. Abdomen: Soft, nondistended. Extremities: Moves all extremities. ASSESSMENT: 1. Generalized edema. Her echo did not show any congestive heart failure. 2. Hypertension. Blood pressure is stable. 3. Diabetes with poorly controlled blood sugars which are very erratic from the 50s to 400s, currently controlled. Yesterday 115 to 150. 4. Dementia. PLAN: We will continue the patient in the hospital. Continue to treat symptomatically until which time further transition to long-term care can be made. cc: Ricky Daley MD
[2018-10-16] MEDS: LIPITOR PO SCH (21:00)
[2018-10-16] MEDS: FLOMAX PO SCH (21:01)
[2018-10-17] MEDS: SYNTHROID PO SCH (06:09)
[2018-10-17] MEDS: HUMULIN R (PARKWAY) SUBQ SCH ×4 (06:09→20:42)
[2018-10-17] MEDS: COLACE PO SCH (09:48)
[2018-10-17] MEDS: ZYVOX PO SCH ×2 (09:48→20:42)
[2018-10-17] MEDS: MIRALAX PO SCH (09:48)
[2018-10-17] MEDS: PRINIVIL PO SCH ×2 (09:48→20:43)
[2018-10-17] MEDS: ASPIRIN PO SCH (09:48)
[2018-10-17] MEDS: LASIX PO SCH ×2 (09:48→20:42)
[2018-10-17] MEDS: APRESOLINE PO SCH ×3 (09:48→16:40)
[2018-10-17] MEDS: VIMPAT PO SCH ×2 (09:48→20:42)
[2018-10-17] MEDS: SEROQUEL PO SCH ×2 (09:48→20:42)
[2018-10-17] MEDS: OMNICEF PO SCH ×2 (09:48→20:43)
[2018-10-17] MEDS: CULTURELLE FOR KIDS PO SCH ×3 (09:48→16:40)
[2018-10-17] MEDS: NORVASC PO SCH (09:48)
[2018-10-17] MEDS: TOPROL XL PO SCH (09:49)
[2018-10-17] MEDS: BASAGLAR SUBQ SCH (09:49)
--- NOTE | 2018-10-17 11:39 | PROGRESS NOTE ---
DATE: 10/17/2018 SUBJECTIVE: Patient has no complaints. OBJECTIVE: Vital Signs: On physical examination, vital signs reviewed. Patient is awake. She is in no distress. Temperature 97.3 degrees, pulse 74, respiratory 18, BP 162/85. General: Patient is pleasant. She is calm. Physical exam is unchanged. Blood pressure is slightly elevated today in the low 200s. ASSESSMENT: 1. Diabetes. 2. Hypoxemia. 3. Protein calorie malnutrition, improved. We will continue vegetarian diet. 4. Dementia. 5. Adult failure to thrive. PLAN: We will continue patient in the hospital. Continue to follow until which time she can transition to further care. Her edema has improved. We will continue her Lasix twice a day today, and will follow. cc: Ricky Daley MD
[2018-10-17] MEDS: DUONEB (A & A) INH PRN (17:22)
[2018-10-17] MEDS: LIPITOR PO SCH (20:42)
[2018-10-17] MEDS: FLOMAX PO SCH (20:43)
[2018-10-18] MEDS: SYNTHROID PO SCH ×2 (05:47→08:01)
[2018-10-18] MEDS: HUMULIN R (PARKWAY) SUBQ SCH ×4 (06:31→23:07)
[2018-10-18] MEDS: VIMPAT PO SCH ×2 (09:35→22:42)
[2018-10-18] MEDS: SEROQUEL PO SCH ×2 (09:35→22:42)
[2018-10-18] MEDS: OMNICEF PO SCH ×2 (09:35→22:42)
[2018-10-18] MEDS: BASAGLAR SUBQ SCH (09:35)
[2018-10-18] MEDS: NORVASC PO SCH (09:35)
[2018-10-18] MEDS: PRINIVIL PO SCH ×2 (09:35→22:42)
[2018-10-18] MEDS: APRESOLINE PO SCH ×4 (09:35→18:21)
[2018-10-18] MEDS: TOPROL XL PO SCH (09:36)
[2018-10-18] MEDS: LASIX PO SCH ×2 (09:36→22:42)
[2018-10-18] MEDS: CULTURELLE FOR KIDS PO SCH ×3 (09:36→18:19)
[2018-10-18] MEDS: COLACE PO SCH (09:36)
[2018-10-18] MEDS: ASPIRIN PO SCH (09:36)
[2018-10-18] MEDS: ZYVOX PO SCH ×2 (09:36→22:42)
[2018-10-18] MEDS: MIRALAX PO SCH (10:44)
--- NOTE | 2018-10-18 15:06 | PROGRESS NOTE ---
DATE: 10/18/2018 SUBJECTIVE: Patient with no complaints. OBJECTIVE: Vital Signs: Reviewed. Temperature 97.8 degrees, pulse 84, respiratory rate 18, BP 146/78. General: Patient is awake. She is in no distress. HEENT: Normocephalic. Neck: Supple. Cardiovascular: Regular rate. Chest: Clear. ASSESSMENT: 1. Recent pneumonia. She currently is on antibiotics. We are repeating a chest x-ray. If this is clear, we will stop her antibiotics. 2. Recurrent urinary tract infections. Currently stable. 3. Hypoxic respiratory failure, resolved, stable. 4. Diabetes with poor control. Patient's blood sugars currently are anywhere from 50s and 60s to 300s, depends on if she decides not to eat. 5. Adult failure to thrive. Patient is currently in hospital awaiting transition to long-term care. 6. Dementia. 7. Poor social situation. 8. Do Not Resuscitate level 1. cc: Ricky Daley MD
--- NOTE | 2018-10-18 16:39 | Diag Imaging Result Doc PS360 ---
EXAM: CHEST-PORTABLE INDICATION: pna TECHNIQUE: One view COMPARISON: 10/13/2018 FINDINGS: A BRICKMASON shunt catheter projects over the chest, stable. Inspiration is suboptimal, stable. There is stable elevation of the right hemidiaphragm. The right upper lobe infiltrate seen on the previous study is slightly less dense. No new consolidation is identified. Cardiac silhouette is stable. IMPRESSION: Marginal improvement of the right upper lobe consolidation seen on the previous study. Electronically signed by Pacheco Frank 10/18/2018 4:37 PM
[2018-10-18] MEDS: LIPITOR PO SCH (22:42)
[2018-10-18] MEDS: FLOMAX PO SCH (22:42)
[2018-10-19] MEDS: HUMULIN R (PARKWAY) SUBQ SCH ×4 (06:05→22:33)
[2018-10-19] MEDS: SYNTHROID PO SCH (06:06)
[2018-10-19] MEDS: ASPIRIN PO SCH (08:39)
[2018-10-19] MEDS: MIRALAX PO SCH (08:39)
[2018-10-19] MEDS: APRESOLINE PO SCH ×3 (08:39→16:08)
[2018-10-19] MEDS: CULTURELLE FOR KIDS PO SCH ×3 (08:39→16:08)
[2018-10-19] MEDS: VIMPAT PO SCH ×2 (08:41→22:34)
[2018-10-19] MEDS: SEROQUEL PO SCH ×2 (08:42→22:34)
[2018-10-19] MEDS: LASIX PO SCH ×2 (08:42→22:33)
[2018-10-19] MEDS: TOPROL XL PO SCH (08:42)
[2018-10-19] MEDS: ZYVOX PO SCH ×2 (08:42→22:34)
[2018-10-19] MEDS: PRINIVIL PO SCH ×2 (08:42→22:34)
[2018-10-19] MEDS: COLACE PO SCH (08:42)
[2018-10-19] MEDS: OMNICEF PO SCH ×2 (08:42→22:33)
[2018-10-19] MEDS: NORVASC PO SCH (08:51)
[2018-10-19] MEDS: BASAGLAR SUBQ SCH (08:52)
--- NOTE | 2018-10-19 13:48 | PROGRESS NOTE ---
DATE: 10/19/2018 SUBJECTIVE: Patient reports feeling fine. No complaints today. OBJECTIVE: Vital Signs: Temperature 97.4, heart rate 80, respiratory rate 18, blood pressure 140/54, O2 saturation 98% on 2 L nasal cannula. General Examination: This is a chronically ill- appearing, 83-year-old, female lying in bed, in no acute distress. Cardiovascular Examination: S1 and S2 heard. No murmurs, gallops, or rubs. Regular rate and rhythm. Respiratory Examination: Minimal coarse breath sounds in both pulmonary bases. Patient is not using any accessory muscles or having work of breathing. Abdomen: Soft, nontender to palpation. Bowel sounds present. No organomegaly. Extremities: No clubbing, cyanosis, or edema. Peripheral pulses present in both legs. Neurological Examination: The patient is disoriented, sometimes yelling. Moved 4 extremities spontaneously. ASSESSMENT AND PLAN: 1. Recent pneumonia. The patient is on antibiotics. Plan was to check an x-ray to see if this pneumonia has cleared. The x-ray shows marginal improvement of the right upper lobe consolidation so at this time, we will continue with Omnicef 300 mg by mouth twice a day. Today is day #6 of treatment. We will continue for at least a couple of weeks, considering that she basically lives in the hospital and she is definitely prone to develop intrahospital infections. 2. Recurrent urinary tract infections, stable. 3. Chronic hypoxic respiratory failure. The patient is not on oxygen. 4. Diabetes mellitus type 2. We will continue with sliding scale insulin. Accu-Chek before meals and also at bedtime. 5. Failure to thrive. The patient is not receiving Ensure. 6. Dementia. Aware. 7. Poor social condition. Aware. 8. Code status. Do Not Resuscitate level 1. 9. Disposition. Patient is in the hospital awaiting for transition to long-term care facility. cc: Onur Parada MD
[2018-10-19] MEDS: DUONEB (A & A) INH PRN (15:41)
[2018-10-19] MEDS: FLOMAX PO SCH (22:33)
[2018-10-19] MEDS: LIPITOR PO SCH (22:34)
[2018-10-20] MEDS: SYNTHROID PO SCH (06:15)
[2018-10-20] MEDS: HUMULIN R (PARKWAY) SUBQ SCH ×4 (06:17→21:50)
[2018-10-20] MEDS: NORVASC PO SCH (08:22)
[2018-10-20] MEDS: ASPIRIN PO SCH (08:22)
[2018-10-20] MEDS: MIRALAX PO SCH (08:22)
[2018-10-20] MEDS: PRINIVIL PO SCH ×2 (08:22→21:50)
[2018-10-20] MEDS: COLACE PO SCH (08:22)
[2018-10-20] MEDS: ZYVOX PO SCH ×2 (08:22→21:51)
[2018-10-20] MEDS: APRESOLINE PO SCH ×3 (08:22→16:31)
[2018-10-20] MEDS: CULTURELLE FOR KIDS PO SCH ×3 (08:22→16:31)
[2018-10-20] MEDS: SEROQUEL PO SCH ×2 (08:22→21:50)
[2018-10-20] MEDS: OMNICEF PO SCH ×2 (08:22→21:51)
[2018-10-20] MEDS: VIMPAT PO SCH ×2 (08:23→21:51)
[2018-10-20] MEDS: LASIX PO SCH ×2 (08:23→21:51)
[2018-10-20] MEDS: TOPROL XL PO SCH (08:23)
[2018-10-20] MEDS: BASAGLAR SUBQ SCH ×2 (08:23→08:41)
--- NOTE | 2018-10-20 14:13 | PROGRESS NOTE ---
DATE: 10/20/2018 SUBJECTIVE: Patient reports feeling fine. Eating okay at the time of my examination. OBJECTIVE: Vital Signs: Temperature 97.2, heart rate 74, respiratory rate 18, blood pressure 177/63, and O2 saturation 100% 2 L nasal cannula. General: This is a chronically ill-appearing 83-year-old female lying in bed in no acute distress. Cardiovascular: S1, S2 heard. No murmurs, gallops, or rubs. Regular rate and rhythm. Respiratory: Minimal coarse breath sounds noted in both pulmonary bases. Patient not using any accessory muscles or having work of breathing. Abdomen: Soft. Nontender to palpation. Bowel sounds present. No organomegaly. Neurological: Patient is disoriented in place and time. Sometimes yelling. Moves 4 extremities spontaneously. ASSESSMENT AND PLAN: 1. Recent healthcare associated pneumonia. We will continue with Omnicef twice daily. Today is day #7 of treatment. We will continue with that for at least 2 weeks. 2. Recurrent UTIs stable. 3. Chronic hypoxic respiratory failure. Patient is on 3 L of oxygen by nasal cannula. 4. Diabetes mellitus type 2. We will continue with sliding scale insulin. Accu-Chek before meals and also at bedtime. 5. Failure to thrive. The patient is receiving Ensure. 6. Dementia. Aware. 7. Poor social condition. Aware. 8. Code status. Do not resuscitate level 1. 9. Disposition. The patient is in the hospital awaiting for transition to long-term care facility. cc: Onur Parada MD
[2018-10-20] MEDS: LIPITOR PO SCH (21:51)
[2018-10-20] MEDS: FLOMAX PO SCH (21:51)
[2018-10-21] MEDS: HUMULIN R (PARKWAY) SUBQ SCH ×4 (06:21→20:31)
[2018-10-21] MEDS: SYNTHROID PO SCH (06:21)
[2018-10-21] MEDS: VIMPAT PO SCH ×2 (08:33→20:32)
[2018-10-21] MEDS: TOPROL XL PO SCH (08:33)
[2018-10-21] MEDS: SEROQUEL PO SCH ×2 (08:33→20:31)
[2018-10-21] MEDS: COLACE PO SCH (08:33)
[2018-10-21] MEDS: ASPIRIN PO SCH (08:33)
[2018-10-21] MEDS: NORVASC PO SCH (08:34)
[2018-10-21] MEDS: ZYVOX PO SCH ×2 (08:34→20:31)
[2018-10-21] MEDS: OMNICEF PO SCH ×2 (08:34→20:31)
[2018-10-21] MEDS: CULTURELLE FOR KIDS PO SCH ×3 (08:34→17:15)
[2018-10-21] MEDS: MIRALAX PO SCH (08:34)
[2018-10-21] MEDS: LASIX PO SCH ×2 (08:34→20:31)
[2018-10-21] MEDS: APRESOLINE PO SCH ×3 (08:34→17:15)
[2018-10-21] MEDS: PRINIVIL PO SCH ×2 (08:34→20:31)
[2018-10-21] MEDS: BASAGLAR SUBQ SCH (10:20)
[2018-10-21] MEDS: DUONEB (A & A) INH PRN (12:26)
--- NOTE | 2018-10-21 13:56 | PROGRESS NOTE ---
DATE: 10/21/2018 SUBJECTIVE: The patient is fine. No acute issues noted as per nursing staff overnight. OBJECTIVE: Vital Signs: Temperature 97.8 degrees, heart rate 65, respiratory rate 20, blood pressure 132/87, O2 saturation 100% on 2 L nasal cannula. General Examination: This is an 83- year-old, female, lying in bed, in no acute distress. Cardiovascular Examination: S1 and S2 heard. No murmurs, gallops, or rubs. Regular rate and rhythm. Respiratory Examination: Minimal coarse breath sounds noted in both pulmonary bases. Patient is not using any accessory muscles or having work of breathing. Abdomen: Soft, nontender to palpation. Bowel sounds present. No organomegaly. Extremities: No clubbing, cyanosis, or edema. Peripheral pulses present in both legs. Neurological Examination: The patient continues to be disoriented in place and time, sometimes yelling, but moves 4 extremities spontaneously. ASSESSMENT AND PLAN: 1. Recent healthcare-associated pneumonia. We will continue with Omnicef 300 mg by mouth twice daily. Today is day #8 of treatment. We are planning to complete 2 days of antibiotics. 2. Recurrent urinary tract infections, stable. 3. Chronic hypoxic respiratory failure. Patient is requiring 2 L of oxygen by nasal cannula now. 4. Diabetes mellitus type 2. We will continue with sliding scale insulin and Accu-Chek before meals and also at bedtime. 5. Failure to thrive. Patient is receiving Ensure. 6. Advanced dementia. Aware. 7. Code status. Do Not Resuscitate level 1. 8. Disposition. The patient is awaiting for transition to a long-term care facility. cc: Onur Parada MD
[2018-10-21] MEDS: LIPITOR PO SCH (20:31)
[2018-10-21] MEDS: FLOMAX PO SCH (20:31)
[2018-10-22] MEDS: HUMULIN R (PARKWAY) SUBQ SCH ×4 (06:10→22:09)
[2018-10-22] MEDS: SYNTHROID PO SCH (06:11)
[2018-10-22] MEDS: SEROQUEL PO SCH ×2 (09:16→22:08)
[2018-10-22] MEDS: LASIX PO SCH ×2 (09:16→22:08)
[2018-10-22] MEDS: VIMPAT PO SCH ×2 (09:16→22:09)
[2018-10-22] MEDS: APRESOLINE PO SCH ×3 (09:17→16:37)
[2018-10-22] MEDS: ZYVOX PO SCH ×2 (09:17→22:09)
[2018-10-22] MEDS: NORVASC PO SCH (09:17)
[2018-10-22] MEDS: MIRALAX PO SCH (09:17)
[2018-10-22] MEDS: COLACE PO SCH (09:17)
[2018-10-22] MEDS: ASPIRIN PO SCH (09:17)
[2018-10-22] MEDS: BASAGLAR SUBQ SCH (09:17)
[2018-10-22] MEDS: CULTURELLE FOR KIDS PO SCH ×3 (09:17→16:37)
[2018-10-22] MEDS: TOPROL XL PO SCH (09:17)
[2018-10-22] MEDS: PRINIVIL PO SCH ×2 (09:17→22:09)
[2018-10-22] MEDS: OMNICEF PO SCH ×2 (09:17→22:08)
--- NOTE | 2018-10-22 11:40 | PROGRESS NOTE ---
DATE: 10/22/2018 SUBJECTIVE: Patient reports no complaints. As per nursing staff, the temperature in this patient started to go down. It was checked in the morning and was 94.7, and the last 1 that I have after my examination was 94.0, even axillary and rectal was checked and was found to be low. No other issues noted. OBJECTIVE: Vital Signs: Temperature 94.0 degrees, heart rate 62, respiratory rate 18, blood pressure 136/93, O2 saturation 100% 3 L nasal cannula. General Examination: This is a chronically ill-appearing, 83-year-old female, lying in bed in no acute distress. Cardiovascular exam: S1, S2 heard. No murmurs, gallops, or rubs. Regular rate and rhythm. Respiratory exam: Minimal coarse breath sounds noted in both pulmonary bases. Patient not using any accessory muscles or having work of breathing. Abdomen: Soft. Nontender to palpation. Bowel sounds present. No organomegaly. Extremities: No clubbing, cyanosis, or edema. Peripheral pulses present in both legs. Neurological exam: Patient continues to be disoriented to place and time, sometimes yelling, but moves 4 extremities spontaneously. ASSESSMENT AND PLAN: 1. Healthcare-associated pneumonia. Patient continues with Omnicef 300 mg oral twice daily. Today is day #9 of treatment. We are planning to complete 2 weeks of antibiotics. His blood pressure started going down. His temperature started going down, but I do not see any reason why this temperature was going down. In any case, I instructed the nurse to use this air blanket to try to raise his temperature. 2. Recurrent urinary tract infections. Stable. 3. Chronic hypoxic respiratory failure. Patient continues to require 2 liters of oxygen by nasal cannula. 4. Diabetes mellitus type 2. His blood sugar has been a little bit low. We are not using insulin highest dose, adjust his sliding scale. We will continue to monitor. 5. Failure to thrive. Patient is receiving Ensure. 6. Advanced dementia. Aware. 7. Code status. Do not resuscitate level 1. 8. Disposition: The patient is awaiting for transition to a long-term facility that is taking almost a year to do. . cc: Onur Parada MD
[2018-10-22] MEDS: FLOMAX PO SCH (22:08)
[2018-10-22] MEDS: LIPITOR PO SCH (22:08)
[2018-10-23] MEDS: SYNTHROID PO SCH (06:07)
[2018-10-23] MEDS: HUMULIN R (PARKWAY) SUBQ SCH ×4 (06:07→21:19)
[2018-10-23] MEDS: APRESOLINE PO SCH ×3 (10:15→18:00)
[2018-10-23] MEDS: ASPIRIN PO SCH (10:15)
[2018-10-23] MEDS: COLACE PO SCH (10:15)
[2018-10-23] MEDS: CULTURELLE FOR KIDS PO SCH ×3 (10:15→18:00)
[2018-10-23] MEDS: BASAGLAR SUBQ SCH (10:15)
[2018-10-23] MEDS: NORVASC PO SCH (10:16)
[2018-10-23] MEDS: LASIX PO SCH ×2 (10:16→21:18)
[2018-10-23] MEDS: MIRALAX PO SCH (10:16)
[2018-10-23] MEDS: TOPROL XL PO SCH (10:17)
[2018-10-23] MEDS: VIMPAT PO SCH ×2 (10:17→21:17)
[2018-10-23] MEDS: OMNICEF PO SCH ×2 (10:17→21:18)
[2018-10-23] MEDS: PRINIVIL PO SCH ×2 (10:17→21:19)
[2018-10-23] MEDS: SEROQUEL PO SCH ×2 (10:17→21:19)
[2018-10-23] MEDS: ZYVOX PO SCH ×2 (10:18→21:20)
--- NOTE | 2018-10-23 12:03 | PROGRESS NOTE ---
DATE: 10/23/2018 SUBJECTIVE: Patient reports no complaints. As per nursing staff, he has been fine. Temperature now is much better. It is 97.3. The patient continues to be agitated at times. OBJECTIVE: Vital Signs: Temperature 97.3 degrees, heart rate 74, respiratory rate 18, blood pressure 160/78 and O2 saturation 100% on 2 L nasal cannula. General: This is a chronically ill-appearing 83-year-old female lying in bed in no acute distress. Cardiovascular: S1, S2 heard. No murmurs, gallops, or rubs. Regular rate and rhythm. Respiratory: Minimal coarse breath sounds in both pulmonary bases. Patient not using any accessory muscles or having work of breathing. Neurological: Patient continues to be disoriented to place and time. Sometimes yelling, and moves 4 extremities spontaneously. ASSESSMENT AND PLAN: 1. Healthcare-associated pneumonia. The patient is on Omnicef 300 mg p.o. b.i.d. and also Zyvox 600 mg p.o. b.i.d. both oral medications, and today is #10 for both antibiotics. We will continue those medications to complete 2 weeks of antibiotics. Blood pressure is okay, and also temperature is also fine. We will continue to monitor. 2. Recurrent urinary tract infection on antibiotics as above. 3. Chronic hypoxic respiratory failure. Patient continues to require 2 to 3 L of oxygen by nasal cannula. 4. Diabetes mellitus type 2. We will continue with sliding scale insulin. Accu-Chek before meals and also at bedtime. 5. Failure to thrive. Patient receiving Ensure. 6. Advanced dementia. Aware. We will continue with Geodon 20 mg IM q.6 hours p.r.n. to agitation. 7. Code status. Do not resuscitate level 1. 8. Disposition: Patient awaiting for transition to a long-term facility that unfortunately is taking almost a year. cc: Onur Parada MD MTDD
[2018-10-23] MEDS: FLOMAX PO SCH (21:18)
[2018-10-23] MEDS: LIPITOR PO SCH (21:19)
[2018-10-24] MEDS: INSTA-GLUCOSE PO PRN (00:19)
[2018-10-24] MEDS: SYNTHROID PO SCH (06:09)
[2018-10-24] MEDS: HUMULIN R (PARKWAY) SUBQ SCH ×4 (06:09→21:14)
[2018-10-24] MEDS: BASAGLAR SUBQ SCH (08:21)
[2018-10-24] MEDS: MIRALAX PO SCH (08:22)
[2018-10-24] MEDS: COLACE PO SCH (08:22)
[2018-10-24] MEDS: ZYVOX PO SCH ×2 (08:23→21:16)
[2018-10-24] MEDS: PRINIVIL PO SCH ×2 (08:23→21:16)
[2018-10-24] MEDS: APRESOLINE PO SCH ×3 (08:23→18:16)
[2018-10-24] MEDS: TOPROL XL PO SCH (08:24)
[2018-10-24] MEDS: ASPIRIN PO SCH (08:24)
[2018-10-24] MEDS: CULTURELLE FOR KIDS PO SCH ×3 (08:25→18:16)
[2018-10-24] MEDS: LASIX PO SCH ×2 (08:25→21:15)
[2018-10-24] MEDS: SEROQUEL PO SCH ×2 (08:25→21:16)
[2018-10-24] MEDS: NORVASC PO SCH (08:25)
[2018-10-24] MEDS: OMNICEF PO SCH ×2 (08:25→21:16)
[2018-10-24] MEDS: VIMPAT PO SCH ×2 (08:25→21:16)
--- NOTE | 2018-10-24 13:50 | PROGRESS NOTE ---
DATE: 10/24/2018 SUBJECTIVE: Patient reports no complaints. She is not too much verbal today to me. Patient is to be agitated at times and yelling as well. OBJECTIVE: Vital Signs: Temperature 97.4 degrees, heart rate 82, respiratory rate 20, blood pressure 153/85, O2 saturation 97% on 2 L nasal cannula. General: This is a chronically ill- appearing, 83-year-old, female lying in bed, in no acute distress. Cardiovascular: S1, S2 heard. No murmurs, gallops, or rubs. Regular rate and rhythm. Respiratory: Minimal coarse breath sounds noted in both pulmonary bases. Patient not using any accessory muscles or having work of breathing. Neurological: Patient is alert, is oriented in place and time sometimes daily, but moves 4 extremities spontaneously. ASSESSMENT AND PLAN: 1. Healthcare-associated pneumonia. The patient has been on Omnicef 300 mg p.o. b.i.d. and also Zyvox 600 mg p.o. b.i.d. Today is day #11 for both medications. We are planning to complete 2 weeks of antibiotics. 2. Recurring urinary tract infection. Aware. Patient on antibiotics as above. 3. Chronic hypoxic respiratory failure. Patient continues to require 2-3 L of oxygen by nasal cannula. 4. Diabetes mellitus type 2. We will continue with sliding scale insulin and Accu-Chek before meals and also at bedtime. 5. Failure to thrive. We will continue with Ensure. 6. Advanced dementia. Aware. Will continue with Ativan p.r.n. 7. Code status. Do not resuscitate level 1. 8. Disposition. Patient awaiting for transition to a long-term care facility that unfortunately is taking almost a year. cc: Onur Parada MD MTDD
[2018-10-24] MEDS: LIPITOR PO SCH (21:15)
[2018-10-24] MEDS: FLOMAX PO SCH (21:15)
[2018-10-25] MEDS: HUMULIN R (PARKWAY) SUBQ SCH ×4 (07:04→22:30)
[2018-10-25] MEDS: SYNTHROID PO SCH ×2 (07:04→10:44)
[2018-10-25] MEDS: ASPIRIN PO SCH (10:43)
[2018-10-25] MEDS: TOPROL XL PO SCH (10:44)
[2018-10-25] MEDS: LASIX PO SCH ×2 (10:44→22:59)
[2018-10-25] MEDS: ZYVOX PO SCH ×2 (10:44→22:59)
[2018-10-25] MEDS: SEROQUEL PO SCH ×2 (10:44→22:30)
[2018-10-25] MEDS: OMNICEF PO SCH ×2 (10:44→22:59)
[2018-10-25] MEDS: NORVASC PO SCH (10:44)
[2018-10-25] MEDS: COLACE PO SCH (10:44)
[2018-10-25] MEDS: PRINIVIL PO SCH ×2 (10:45→23:00)
[2018-10-25] MEDS: VIMPAT PO SCH ×2 (10:45→22:59)
[2018-10-25] MEDS: BASAGLAR SUBQ SCH (10:45)
[2018-10-25] MEDS: APRESOLINE PO SCH ×3 (10:48→18:11)
[2018-10-25] MEDS: CULTURELLE FOR KIDS PO SCH ×3 (10:48→18:12)
[2018-10-25] MEDS: MIRALAX PO SCH (10:49)
--- NOTE | 2018-10-25 15:43 | PROGRESS NOTE ---
DATE: 10/25/2018 SUBJECTIVE: Ms. Bajwa has no specific complaints. She continues agitated at times, yelling out, but does calm. OBJECTIVE: Vital Signs: Blood pressure is 147/61, heart rate of 89, respirations 20, temperature is 98.7 degrees axillary, O2 saturations are 92% to 94% on 2 L nasal cannula. Cardiovascular: Regular rate and rhythm. S1, S2 appreciated. She has no murmurs. She has no lower extremity edema. Peripheral pulses palpable x4 extremities. Pulmonary: Breath sounds are coarse throughout. Chest rises and falls with symmetric respirations. Chest wall is nontender to palpation. Gastrointestinal: Soft, nontender, nondistended. Bowel sounds in all 4 quadrants. Neurologic: She is alert. She follows commands at times, which is normal for her. She moves extremities at random. ASSESSMENT AND PLAN: 1. Healthcare-associated pneumonia. We will continue Omnicef and Zyvox. Today is #12 for both medications out of a 14-day regimen. 2. Recurring urinary tract infection. Antibiotics as above. 3. Chronic hypoxic respiratory failure. Continue supplemental oxygen and monitor saturations. 4. Diabetes mellitus type 2. Continue with her current regimen. 5. Failure to thrive. We will continue with her current treatment. 6. Advanced dementia. She is stable at present. 7. Code status. DNR level 1. 8. Disposition. We are waiting transition to a long-term care facility. Dictated by EDDIE Hardy for Ventura Pleitez MD cc: EDDIE Hardy MD
[2018-10-25] MEDS: D50W SYRINGE IV PRN (20:40)
[2018-10-25 21:23] LABS: CALCIUM 8.6 mg/dL (8.8-10.2); POTASSIUM 3.5 mmol/L (3.5-5.1)
[2018-10-25] MEDS: LIPITOR PO SCH (22:58)
[2018-10-25] MEDS: FLOMAX PO SCH (22:59)
[2018-10-26] MEDS: D50W SYRINGE IV PRN ×2 (00:53→04:30)
[2018-10-26] MEDS: D5 1/2 NS 1,000 ML IV SCH (06:00)
[2018-10-26] MEDS: SYNTHROID PO SCH (06:37)
[2018-10-26] MEDS: HUMULIN R (PARKWAY) SUBQ SCH ×3 (06:46→17:23)
[2018-10-26] MEDS: LASIX PO SCH (09:52)
[2018-10-26] MEDS: TOPROL XL PO SCH (09:52)
[2018-10-26] MEDS: MIRALAX PO SCH (09:52)
[2018-10-26] MEDS: APRESOLINE PO SCH ×3 (09:52→17:27)
[2018-10-26] MEDS: VIMPAT PO SCH (09:52)
[2018-10-26] MEDS: BASAGLAR SUBQ SCH (09:53)
[2018-10-26] MEDS: OMNICEF PO SCH (09:53)
[2018-10-26] MEDS: ASPIRIN PO SCH (09:53)
[2018-10-26] MEDS: ZYVOX PO SCH (09:53)
[2018-10-26] MEDS: COLACE PO SCH (09:53)
[2018-10-26] MEDS: SEROQUEL PO SCH (09:53)
[2018-10-26] MEDS: NORVASC PO SCH (09:53)
[2018-10-26] MEDS: CULTURELLE FOR KIDS PO SCH ×3 (09:53→17:27)
[2018-10-26] MEDS: PRINIVIL PO SCH (09:53)
--- NOTE | 2018-10-26 14:21 | PROGRESS NOTE ---
DATE: 10/26/2018 SUBJECTIVE: Patient has no new complaints. She is quite vocal today. Did have an episode yesterday of hypoglycemia preceded by significant hyperglycemia and treatment. PHYSICAL EXAMINATION: Temperature 97.3, pulse 64, respiratory rate 18, BP 119/56. General: Patient is awake. She is in no distress. HEENT: Normocephalic. Neck: Supple. Cardiovascular: Regular rate. Chest: Clear. Abdomen: Soft. Extremities: Moves all extremities. ASSESSMENT: 1. Nausea and vomiting, resolved. 2. Healthcare-associated pneumonia. She is on day 13 of 14 total. 3. Recurrent hypoglycemic episodes. I have decreased her sliding scale insulin in half. We will have to allow her to have hyperglycemic episodes that will slowly get treated. Otherwise, she is very susceptible to insulin and drops her blood sugars in the 20s and 40s. Current blood sugars from 30 to 300. 4. Adult failure to thrive. 5. Advanced dementia. 6. Do Not Resuscitate. PLAN: As noted multiple times previously, we are awaiting state intervention to allow Ms. Bajwa to transfer to long-term care. cc: Ricky Daley MD
[2018-10-27] MEDS: HUMULIN R (PARKWAY) SUBQ SCH ×5 (02:02→21:41)
[2018-10-27] MEDS: LASIX PO SCH ×3 (02:02→21:40)
[2018-10-27] MEDS: FLOMAX PO SCH ×2 (02:02→21:40)
[2018-10-27] MEDS: OMNICEF PO SCH (02:03)
[2018-10-27] MEDS: PRINIVIL PO SCH ×3 (02:03→21:40)
[2018-10-27] MEDS: LIPITOR PO SCH ×2 (02:03→21:40)
[2018-10-27] MEDS: VIMPAT PO SCH ×3 (02:04→21:40)
[2018-10-27] MEDS: SEROQUEL PO SCH ×3 (02:04→21:40)
[2018-10-27] MEDS: ZYVOX PO SCH (02:04)
[2018-10-27] MEDS: D5 1/2 NS 1,000 ML IV SCH ×2 (02:05→19:08)
[2018-10-27] MEDS: SYNTHROID PO SCH (06:00)
[2018-10-27] MEDS: CULTURELLE FOR KIDS PO SCH ×3 (08:52→17:28)
[2018-10-27] MEDS: NORVASC PO SCH (08:53)
[2018-10-27] MEDS: ASPIRIN PO SCH (08:53)
[2018-10-27] MEDS: TOPROL XL PO SCH (08:53)
[2018-10-27] MEDS: APRESOLINE PO SCH ×3 (08:53→17:28)
[2018-10-27] MEDS: COLACE PO SCH (08:53)
[2018-10-27] MEDS: MIRALAX PO SCH (08:54)
[2018-10-27] MEDS: BASAGLAR SUBQ SCH (08:54)
--- NOTE | 2018-10-27 19:50 | PROGRESS NOTE ---
DATE: 10/27/2018 SUBJECTIVE: Patient has no new complaints. She is very vocal this morning. She is preparing to eat breakfast. PHYSICAL EXAMINATION: Vital signs reviewed. Temperature 97 degrees, pulse 83, respiratory rate 18, BP 149/71. The patient is awake, alert. She is quite vocal this morning. She is in no distress. She is noted to move all extremities. Exam is unchanged. ASSESSMENT: 1. Healthcare associated pneumonia. She is on day 14 of her antibiotics today. We will stop her antibiotics tonight after tonight's dose. 2. Recurring urinary tract infections, currently resolved. Last culture was negative. 3. Diabetes. 4. Hypoxic respiratory failure, chronic. 5. Chronic adult failure to thrive. 6. Do Not Resuscitate. 7. Advanced dementia. 8. Recurrent hypoglycemic episodes. We have decreased her sliding scale insulin. We will see how this works. PLAN: Continue patient in the hospital as noted. Continue to follow. Further orders as needed. cc: Ricky Daley MD
[2018-10-28] MEDS: SYNTHROID PO SCH (06:31)
[2018-10-28] MEDS: HUMULIN R (PARKWAY) SUBQ SCH ×4 (06:33→22:34)
[2018-10-28] MEDS: COLACE PO SCH (10:30)
[2018-10-28] MEDS: NORVASC PO SCH (10:30)
[2018-10-28] MEDS: CULTURELLE FOR KIDS PO SCH ×3 (10:30→18:15)
[2018-10-28] MEDS: MIRALAX PO SCH (10:30)
[2018-10-28] MEDS: PRINIVIL PO SCH ×2 (10:30→22:34)
[2018-10-28] MEDS: ASPIRIN PO SCH (10:30)
[2018-10-28] MEDS: TOPROL XL PO SCH (10:30)
[2018-10-28] MEDS: VIMPAT PO SCH ×2 (10:30→22:33)
[2018-10-28] MEDS: APRESOLINE PO SCH ×3 (10:31→18:15)
[2018-10-28] MEDS: D5 1/2 NS 1,000 ML IV SCH ×2 (10:31→15:17)
[2018-10-28] MEDS: BASAGLAR SUBQ SCH (10:31)
[2018-10-28] MEDS: SEROQUEL PO SCH ×2 (10:31→22:33)
[2018-10-28] MEDS: LASIX PO SCH ×2 (10:31→22:34)
--- NOTE | 2018-10-28 20:00 | PROGRESS NOTE ---
DATE: 10/28/2018 SUBJECTIVE: Patient has no complaints. PHYSICAL EXAMINATION: Vital Signs: Reviewed. Temperature 98 degrees, pulse 100, respiratory rate 18, BP 151/64. General: Patient is awake. She is in no current distress. Physical is unchanged. Vital signs reviewed. Blood sugars 125 to 237. ASSESSMENT: 1. Healthcare associated pneumonia, improving. We will stop her antibiotics today. 2. Recurrent urinary tract infection, stable currently. 3. Chronic hypoxic respiratory failure. 4. Hypertension. 5. Diabetes. 6. Hypothyroid. 7. Adult failure to thrive. 8. Advanced dementia. 9. Do Not Resuscitate. PLAN: We will continue patient in the hospital. Continue symptomatic care. Continue to follow her blood sugars and blood pressures. Further orders as needed. cc: Ricky Daley MD
[2018-10-28] MEDS: LIPITOR PO SCH (22:33)
[2018-10-28] MEDS: FLOMAX PO SCH (22:33)
[2018-10-29] MEDS: SYNTHROID PO SCH (05:57)
[2018-10-29] MEDS: INSTA-GLUCOSE PO PRN (06:02)
[2018-10-29] MEDS: D5 1/2 NS 1,000 ML IV SCH ×2 (06:39→11:40)
[2018-10-29] MEDS: HUMULIN R (PARKWAY) SUBQ SCH ×4 (06:40→22:57)
[2018-10-29] MEDS: CULTURELLE FOR KIDS PO SCH ×3 (08:53→22:56)
[2018-10-29] MEDS: ASPIRIN PO SCH (08:53)
[2018-10-29] MEDS: SEROQUEL PO SCH ×2 (08:54→22:16)
[2018-10-29] MEDS: TOPROL XL PO SCH (08:54)
[2018-10-29] MEDS: APRESOLINE PO SCH ×3 (08:54→22:57)
[2018-10-29] MEDS: VIMPAT PO SCH ×2 (08:54→22:17)
[2018-10-29] MEDS: PRINIVIL PO SCH ×2 (08:54→22:16)
[2018-10-29] MEDS: LASIX PO SCH ×2 (08:54→22:17)
[2018-10-29] MEDS: NORVASC PO SCH (08:54)
[2018-10-29] MEDS: MIRALAX PO SCH (08:55)
[2018-10-29] MEDS: COLACE PO SCH (08:57)
--- NOTE | 2018-10-29 22:09 | PROGRESS NOTE ---
DATE: 10/29/2018 SUBJECTIVE: The patient continues to have hypoglycemic episodes. PHYSICAL EXAMINATION: Vital Signs: Reviewed. Temperature 98 degrees, pulse 100, respiratory rate 18, BP 151/64. General: The patient is awake, very pleasant. She is in no distress. HEENT: Normocephalic. Cardiovascular: Regular rate. Chest: Clear. Physical exam is unchanged. ASSESSMENT: 1. Hypoglycemia. At this point, we will stop all the hypoglycemic agents, including her insulin. We will simply use sliding scale for today and will follow. 2. Chronic hypoxic respiratory failure. 3. Diabetes. 4. Failure to thrive. 5. Dementia. 6. DO NOT RESUSCITATE. cc: Ricky Daley MD
[2018-10-29] MEDS: LIPITOR PO SCH (22:16)
[2018-10-29] MEDS: FLOMAX PO SCH (22:17)
[2018-10-30] MEDS: D5 1/2 NS 1,000 ML IV SCH ×2 (06:07→22:28)
[2018-10-30] MEDS: HUMULIN R (PARKWAY) SUBQ SCH ×3 (06:09→22:29)
[2018-10-30] MEDS: SYNTHROID PO SCH (06:10)
[2018-10-30] MEDS: SEROQUEL PO SCH ×2 (11:39→22:30)
[2018-10-30] MEDS: COLACE PO SCH (11:39)
[2018-10-30] MEDS: LASIX PO SCH ×2 (11:39→22:29)
[2018-10-30] MEDS: PRINIVIL PO SCH ×2 (11:40→22:30)
[2018-10-30] MEDS: CULTURELLE FOR KIDS PO SCH ×3 (11:40→22:28)
[2018-10-30] MEDS: TOPROL XL PO SCH (11:40)
[2018-10-30] MEDS: ASPIRIN PO SCH (11:40)
[2018-10-30] MEDS: NORVASC PO SCH (11:40)
[2018-10-30] MEDS: VIMPAT PO SCH ×2 (11:41→22:30)
[2018-10-30] MEDS: MIRALAX PO SCH (11:41)
[2018-10-30] MEDS: APRESOLINE PO SCH ×3 (11:41→22:28)
--- NOTE | 2018-10-30 20:00 | PROGRESS NOTE ---
DATE: 10/30/2018 SUBJECTIVE: The patient with no new complaints. VITALS: Temperature 97 degrees, pulse 95, respiratory 18, BP elevated today at 173. Patient is in no distress, she is lying in the bed. She is very vocal this morning. Physical unchanged. She is awake, alert and in no distress. ASSESSMENT: 1. Diabetes with hypoglycemia. Blood sugars have improved since we have stopped her Lantus. I fully expect this have to be restarted in the future once she decides to start eating more regularly again. 2. Chronic hypoxic respiratory failure. 3. Adult failure to thrive. 4. Do not resuscitate. PLAN: We will continue her in the hospital until she can be transitioned to further long-term care. cc: Ricky Daley MD
[2018-10-30] MEDS: FLOMAX PO SCH (22:29)
[2018-10-30] MEDS: LIPITOR PO SCH (22:30)
[2018-10-31] MEDS: LIPITOR PO SCH ×2 (00:05→21:01)
[2018-10-31] MEDS: PRINIVIL PO SCH ×2 (00:05→09:43)
[2018-10-31] MEDS: VIMPAT PO SCH ×3 (00:05→21:01)
[2018-10-31] MEDS: LASIX PO SCH ×3 (00:06→21:01)
[2018-10-31] MEDS: FLOMAX PO SCH ×2 (00:06→21:01)
[2018-10-31] MEDS: SEROQUEL PO SCH ×3 (00:06→21:01)
[2018-10-31] MEDS: APRESOLINE PO SCH ×4 (00:17→17:26)
[2018-10-31] MEDS: CULTURELLE FOR KIDS PO SCH ×4 (00:18→17:26)
[2018-10-31] MEDS: SYNTHROID PO SCH (06:10)
[2018-10-31] MEDS: HUMULIN R (PARKWAY) SUBQ SCH ×4 (06:10→21:01)
[2018-10-31] MEDS: ASPIRIN PO SCH (09:43)
[2018-10-31] MEDS: COLACE PO SCH (09:43)
[2018-10-31] MEDS: MIRALAX PO SCH (09:43)
[2018-10-31] MEDS: NORVASC PO SCH (09:43)
[2018-10-31] MEDS: TOPROL XL PO SCH (09:43)
--- NOTE | 2018-10-31 21:44 | PROGRESS NOTE ---
DATE: 10/31/2018 SUBJECTIVE: The patient seen. No complaints. PHYSICAL EXAMINATION: Vital Signs: Reviewed. Temperature 97.9 degrees, pulse 95, respiratory rate 18, BP 173/78. General: Patient is in no distress. She is awake, alert, active this morning. Physical exam is unchanged. ASSESSMENT: 1. Diabetes with hypoglycemia. Blood sugars have remained elevated over the past 2 days since stopping her Lantus. We will start back at a much lower dose of 3 units daily. 2. Adult failure to thrive. 3. Do Not Resuscitate. PLAN: We will continue to follow in house until she can transition to further long-term care. cc: Ricky Daley MD
[2018-11-01] MEDS: HUMULIN R (PARKWAY) SUBQ SCH ×5 (06:14→21:55)
[2018-11-01] MEDS: SYNTHROID PO SCH (06:16)
[2018-11-01] MEDS: TOPROL XL PO SCH (09:24)
[2018-11-01] MEDS: ASPIRIN PO SCH (09:24)
[2018-11-01] MEDS: LASIX PO SCH ×2 (09:24→21:27)
[2018-11-01] MEDS: APRESOLINE PO SCH ×3 (09:24→17:38)
[2018-11-01] MEDS: CULTURELLE FOR KIDS PO SCH ×3 (09:24→17:39)
[2018-11-01] MEDS: SEROQUEL PO SCH ×2 (09:25→21:27)
[2018-11-01] MEDS: COLACE PO SCH (09:25)
[2018-11-01] MEDS: NORVASC PO SCH (09:25)
[2018-11-01] MEDS: VIMPAT PO SCH ×2 (09:25→21:27)
[2018-11-01] MEDS: MIRALAX PO SCH (09:25)
[2018-11-01] MEDS: LANTUS INSULIN SUBQ SCH (09:25)
--- NOTE | 2018-11-01 14:18 | PROGRESS NOTE ---
DATE: 11/01/2018 SUBJECTIVE: The patient is quite vocal this morning. She is in no distress. She has pulled out her IV currently. She is eating well today. OBJECTIVE: Vital Signs: Temperature 97.6, pulse 80s, respiratory 20, BP 105/89. General: Patient is currently in no distress. She is awake, alert, active. HEENT: Normocephalic. Neck: Supple. Cardiovascular: Regular rate. Chest: Clear. Abdomen: Soft, nondistended. Extremities: Moves all extremities. ASSESSMENT: 1. Diabetes with hypoglycemia. Patient has just gone through 2 or 3 days of very low blood sugars. We had stopped her Lantus. At this point, we have added back at 4 units instead of the 10 units she was on. We have stopped her D5 currently. Blood sugars are staying in the upper 200s, low 300s. We will slowly 1 unit today continue to increase her insulin as needed. 2. Chronic hypoxic respiratory failure. 3. Adult failure to thrive. 4. Dementia. 5. Do not resuscitate. PLAN: As noted above, continue to slowly increase her insulin. We will allow her blood sugars to be in the upper 100s to low 200s as she frequently has significant hypoglycemic episodes down into the 30s and 40s. We will continue to await the opportunity to transfer her to long-term placement. cc: Ricky Daley MD
[2018-11-01] MEDS: FLOMAX PO SCH (21:27)
[2018-11-01] MEDS: LIPITOR PO SCH (21:27)
[2018-11-02] MEDS: HUMULIN R (PARKWAY) SUBQ SCH ×4 (06:00→22:16)
[2018-11-02] MEDS: SYNTHROID PO SCH (06:09)
[2018-11-02] MEDS: CULTURELLE FOR KIDS PO SCH ×3 (10:12→18:15)
[2018-11-02] MEDS: ASPIRIN PO SCH (10:13)
[2018-11-02] MEDS: MIRALAX PO SCH (10:13)
[2018-11-02] MEDS: LASIX PO SCH ×2 (10:13→22:16)
[2018-11-02] MEDS: NORVASC PO SCH (10:13)
[2018-11-02] MEDS: TOPROL XL PO SCH (10:13)
[2018-11-02] MEDS: COLACE PO SCH (10:13)
[2018-11-02] MEDS: SEROQUEL PO SCH ×2 (10:13→22:15)
[2018-11-02] MEDS: APRESOLINE PO SCH ×3 (10:13→18:15)
[2018-11-02] MEDS: LANTUS INSULIN SUBQ SCH (10:14)
[2018-11-02] MEDS: VIMPAT PO SCH ×2 (10:15→22:15)
--- NOTE | 2018-11-02 12:16 | PROGRESS NOTE ---
DATE: 11/02/2018 SUBJECTIVE: Patient has no major complaints. OBJECTIVE: Blood pressure is 173/71, heart rate of 102, respiratory rate is 16, temperature 98 degrees, 98% on 2 L. Cardiovascular: Regular rate and rhythm. Pulmonary: Bilateral breath sounds clear to auscultation. Her sugars since yesterday, she reportedly had some low ones but they are 300, 400. She had one at 81 on the but since that time, it has been 300, 400. We have had this issue before where she bottoms out and just becomes difficult. Right now, she is on Lantus 4 daily and that is it. No other medications. I am going to bump her up a little bit. I am just going to go to 8 and see how she does. IMPRESSION: 1. Dementia, severe. Cannot take care of herself. Has no power of criminal attorney and we are still not sure how we are going to set that up. 2. Hypertension. Continue regular medications. 3. Disposition. Pending her clinical status. cc: Zachery Bill MD
[2018-11-02] MEDS: FLOMAX PO SCH (22:15)
[2018-11-02] MEDS: LIPITOR PO SCH (22:16)
[2018-11-03] MEDS: SYNTHROID PO SCH (06:09)
[2018-11-03] MEDS: HUMULIN R (PARKWAY) SUBQ SCH ×4 (06:10→21:49)
[2018-11-03] MEDS: VIMPAT PO SCH ×2 (10:00→21:49)
[2018-11-03] MEDS: ASPIRIN PO SCH (10:00)
[2018-11-03] MEDS: NORVASC PO SCH (10:00)
[2018-11-03] MEDS: SEROQUEL PO SCH ×2 (10:00→21:49)
[2018-11-03] MEDS: MIRALAX PO SCH (10:00)
[2018-11-03] MEDS: LASIX PO SCH ×2 (10:00→21:49)
[2018-11-03] MEDS: APRESOLINE PO SCH ×3 (10:00→19:01)
[2018-11-03] MEDS: TOPROL XL PO SCH (10:00)
[2018-11-03] MEDS: CULTURELLE FOR KIDS PO SCH ×3 (10:00→19:01)
[2018-11-03] MEDS: LANTUS INSULIN SUBQ SCH (10:27)
--- NOTE | 2018-11-03 14:50 | PROGRESS NOTE ---
DATE: 11/03/2018 SUBJECTIVE: The patient has no major complaints. She is sitting up in bed, calm and collected. No major issues. OBJECTIVE: Vital Signs: Blood pressure 146/59, heart rate of 111, respiratory rate 18, temperature 98 degrees, saturating 100% on 2 L. Cardiovascular: Regular rate and rhythm. Pulmonary: Bilateral breath sounds. Clear to auscultation. GI: Soft, nontender, nondistended. Bowel sounds are positive. LABORATORY DATA: Blood sugars are still 300 to 400, low was 119, and she had 267. PROBLEM LIST: 1. Diabetes. She is on a little higher dose of Lantus. Will continue to follow. 2. Dementia. She is not able take care of herself. Will continue to monitor. She has no Power of Psychologist. We are working on long-term placement. 3. Disposition. Still awaiting long-term placement. cc: Zachery Bill MD
[2018-11-03] MEDS: COLACE PO SCH (16:05)
[2018-11-03] MEDS: LIPITOR PO SCH (21:49)
[2018-11-03] MEDS: FLOMAX PO SCH (21:49)
[2018-11-04] MEDS: SYNTHROID PO SCH (06:04)
[2018-11-04] MEDS: HUMULIN R (PARKWAY) SUBQ SCH ×5 (06:10→23:25)
[2018-11-04] MEDS: LANTUS INSULIN SUBQ SCH (08:13)
[2018-11-04] MEDS: TOPROL XL PO SCH (08:14)
[2018-11-04] MEDS: APRESOLINE PO SCH ×3 (08:14→16:39)
[2018-11-04] MEDS: ASPIRIN PO SCH (08:14)
[2018-11-04] MEDS: CULTURELLE FOR KIDS PO SCH ×2 (08:14→12:15)
[2018-11-04] MEDS: COLACE PO SCH (08:14)
[2018-11-04] MEDS: MIRALAX PO SCH (08:14)
[2018-11-04] MEDS: SEROQUEL PO SCH ×2 (08:14→23:15)
[2018-11-04] MEDS: LASIX PO SCH ×2 (08:15→23:16)
[2018-11-04] MEDS: VIMPAT PO SCH ×2 (08:15→23:15)
[2018-11-04] MEDS: NORVASC PO SCH (08:15)
--- NOTE | 2018-11-04 10:40 | PROGRESS NOTE ---
DATE: 11/04/2018 SUBJECTIVE: Patient resting quietly in bed. No complaints voiced at this time. OBJECTIVE: Vital Signs: Temperature 98.5 degrees, pulse 90, respirations 18, blood pressure 158/65, saturating 100% on 2 L via nasal cannula. General: This is an 83-year-old, female lying in the bed, resting quietly. HEENT: Normocephalic, atraumatic. Normal ENT inspection. Oropharynx and nares are clear. Lungs: Clear to auscultation bilaterally with equal lung expansion and chest wall movement. Heart: Regular rate and rhythm. No murmurs, rubs, or gallops. Abdomen: Soft, nontender, nondistended. Bowel sounds are present x4 quadrants. LABORATORY DATA: Blood sugars this morning have been running in the mid 200s. ASSESSMENT AND PLAN: 1. Diabetes. We will continue her current medication regimen and monitor blood sugars. 2. Dementia. We continue to work on long-term placement. She has no power of insurance defense attorney and unable to take care of herself. 3. Disposition. We are continuing to wait on a placement of power of insurance defense attorney so that she can be placed in long-term care. Dictated by EDDIE Vicente for Zachery Bill MD cc: EDDIE Vicente MD
--- NOTE | 2018-11-04 15:00 | PROGRESS NOTE ---
DATE: 11/04/2018 SUBJECTIVE: Today she is having diarrhea apparently. OBJECTIVE: Vital signs: Blood pressure is 158/65, heart rate 86, respiratory rate 16, temperature 95 degrees, 98% on 2 L. Cardiovascular: Regular rate and rhythm. Pulmonary: Bilateral breath sounds clear to auscultation. LABORATORY DATA: Blood sugars 300s. ASSESSMENT: The patient is stable. Please refer to nurse practitioner's note. cc: Zachery Bill MD
[2018-11-04] MEDS: LIPITOR PO SCH (23:15)
[2018-11-04] MEDS: FLOMAX PO SCH (23:15)
[2018-11-05] MEDS: HUMULIN R (PARKWAY) SUBQ SCH ×5 (01:58→22:00)
[2018-11-05] MEDS: SYNTHROID PO SCH (06:01)
[2018-11-05] MEDS: APRESOLINE PO SCH ×3 (08:36→17:58)
[2018-11-05] MEDS: ASPIRIN PO SCH (08:37)
[2018-11-05] MEDS: LANTUS INSULIN SUBQ SCH (08:37)
[2018-11-05] MEDS: LASIX PO SCH ×2 (08:39→20:48)
[2018-11-05] MEDS: NORVASC PO SCH (08:39)
[2018-11-05] MEDS: VIMPAT PO SCH ×2 (08:40→20:48)
[2018-11-05] MEDS: TOPROL XL PO SCH (08:40)
[2018-11-05] MEDS: SEROQUEL PO SCH ×2 (08:42→20:47)
--- NOTE | 2018-11-05 15:07 | PROGRESS NOTE ---
DATE: 11/05/2018 SUBJECTIVE: She looks okay. She is a little sleepy. OBJECTIVE: General: No major complaints. Cardiovascular: Regular rate and rhythm. Pulmonary: Bilateral breath sounds. Clear to auscultation. GI: Soft, nontender, nondistended. Bowel sounds are positive. Extremity exam: No clubbing or cyanosis. Lymphatic exam: No peripheral edema. Neurological exam: Nonfocal. LABORATORY DATA: Blood sugar 163, 325. PROBLEM: 1. Dementia, stable currently. 2. Diabetes. Blood sugar is also stable. We will continue to follow closely. DISPOSITION: Pending her clinical status, continue to follow. She is pending evaluation as a mack of the [facility]. We will continue to follow. cc: Zachery Bill MD
[2018-11-05 18:17] LABS: BILIRUBIN URINE NEGATIVE (NEGATIVE); BLOOD URINE 3+ (NEGATIVE); CLARITY VERY CLOUDY (CLEAR); COLOR YELLOW; KETONE URINE NEGATIVE (NEGATIVE); LEUKOCYTES URINE 2+ (NEGATIVE); NITRITE URINE NEGATIVE (NEGATIVE); PROTEIN URINE 1+(30 mg/dL) mg/dL (NEGATIVE); UROBILINOGEN URINE NORMAL
[2018-11-05 18:19] LABS: URINE WBC TNTC /HPF (<10)
[2018-11-05 18:21] LABS: URINE RBC <10 /HPF (<10)
[2018-11-05 18:22] LABS: URINE BACTERIA NEGATIVE /HFP; URINE EPITHELIAL CELLS <10 /HPF (<10); URINE SOURCE CATH; URINE YEAST PRESENT /HPF
[2018-11-05] MEDS: FLOMAX PO SCH (20:48)
[2018-11-05] MEDS: LIPITOR PO SCH (22:01)
[2018-11-06] MEDS: SYNTHROID PO SCH (06:04)
[2018-11-06] MEDS: HUMULIN R (PARKWAY) SUBQ SCH ×4 (06:05→21:53)
[2018-11-06] MEDS: SEROQUEL PO SCH ×2 (09:50→21:51)
[2018-11-06] MEDS: LASIX PO SCH (09:51)
[2018-11-06] MEDS: NORVASC PO SCH (09:51)
[2018-11-06] MEDS: TOPROL XL PO SCH (09:51)
[2018-11-06] MEDS: VIMPAT PO SCH ×2 (09:51→21:51)
[2018-11-06] MEDS: APRESOLINE PO SCH ×3 (09:51→21:52)
[2018-11-06] MEDS: ASPIRIN PO SCH (09:51)
[2018-11-06] MEDS: LANTUS INSULIN SUBQ SCH (09:55)
[2018-11-06] MEDS: ROCEPHIN 1 GM in NS 50 ML IV SCH (10:17)
--- NOTE | 2018-11-06 13:06 | PROGRESS NOTE ---
DATE: 11/06/2018 SUBJECTIVE: Patient has no major complaints. OBJECTIVE: Blood pressure 173/65, heart rate of 78, respiratory rate of 20, temperature of 98.3 degrees and 100% on 2 L.Cardiovascular: Regular rate and rhythm. Pulmonary: Bilateral breath sounds. Clear to auscultation. GI: Soft, nontender, and nondistended. Bowel sounds are positive. LABORATORY: White count I do not have any data today. Sugars are still 266, 428, and 325. Her urine showed [id number] white blood cells 2+. No bacteria interestingly enough, but was very cloudy, hard to get much symptomatology out of her. PROBLEM LIST: 1. Severe dementia. We will continue to monitor on current medications. 2. Diabetes with very brittle diabetes and variant blood sugars. Currently, she is hyperglycemic, and I am going to bump up her Lantus to 10. She has been on much higher doses and Victoza, and multiple oral medications. She has periodic episodes where she gets hypoglycemic, and then everything just kind of changes. 3. Cystitis. I think she is symptomatic. She seems more confused than usual. She is more agitated. She is yelling out and her urine looks infected so we will pursue antibiotics pending her clinical status. We will continue to follow. cc: Zachery Bill MD
[2018-11-06] MEDS: LIPITOR PO SCH (21:51)
[2018-11-06] MEDS: FLOMAX PO SCH (21:52)
[2018-11-07] MEDS: SYNTHROID PO SCH (06:22)
[2018-11-07] MEDS: HUMULIN R (PARKWAY) SUBQ SCH ×4 (06:48→22:32)
[2018-11-07] MEDS: VIMPAT PO SCH ×2 (10:28→22:31)
[2018-11-07] MEDS: NORVASC PO SCH (10:28)
[2018-11-07] MEDS: ASPIRIN PO SCH (10:28)
[2018-11-07] MEDS: TOPROL XL PO SCH (10:28)
[2018-11-07] MEDS: LASIX PO SCH (10:28)
[2018-11-07] MEDS: ROCEPHIN 1 GM in NS 50 ML IV SCH (10:28)
[2018-11-07] MEDS: SEROQUEL PO SCH ×2 (10:28→22:31)
[2018-11-07] MEDS: APRESOLINE PO SCH ×3 (10:30→22:31)
[2018-11-07] MEDS: LANTUS INSULIN SUBQ SCH (10:31)
[2018-11-07] MEDS: FLOMAX PO SCH (22:30)
[2018-11-07] MEDS: LIPITOR PO SCH (22:31)
--- NOTE | 2018-11-08 04:29 | PROGRESS NOTE ---
DATE: 11/07/2018 SUBJECTIVE: She is sitting up in bed eating. She seems pretty good mood. OBJECTIVE: Vital signs: Blood pressure 168/66, heart rate 86, respiratory rate 18, temperature was 97.5 degrees. Cardiovascular: Regular rate and rhythm. Pulmonary: Bilateral breath sounds. Clear to auscultation. Gastrointestinal: Soft, nontender, nondistended. Bowel sounds are positive. ASSESSMENT AND PLAN: 1. Dementia. She seems to be doing a bit better. I get a sense, we started antibiotics yesterday, maybe those are working. She does have gram-positive cocci. I do not have final information. It has always been Enterococcus before, so I am suspicious that Rocephin is not going to be enough, but she seems to be doing okay. 2. Diabetes. Appears to be stable. 3. Disposition. We are still waiting on long-term care. cc: Zachery Bill MD
[2018-11-08] MEDS: HUMULIN R (PARKWAY) SUBQ SCH ×4 (06:16→22:16)
[2018-11-08] MEDS: SYNTHROID PO SCH (06:16)
[2018-11-08] MEDS: APRESOLINE PO SCH ×3 (09:41→22:16)
[2018-11-08] MEDS: ROCEPHIN 1 GM in NS 50 ML IV SCH (09:41)
[2018-11-08] MEDS: NORVASC PO SCH (09:42)
[2018-11-08] MEDS: LASIX PO SCH (09:42)
[2018-11-08] MEDS: VIMPAT PO SCH ×2 (09:42→22:16)
[2018-11-08] MEDS: ASPIRIN PO SCH (09:42)
[2018-11-08] MEDS: SEROQUEL PO SCH ×2 (09:42→22:16)
[2018-11-08] MEDS: TOPROL XL PO SCH (09:42)
[2018-11-08] MEDS: LANTUS INSULIN SUBQ SCH (09:43)
[2018-11-08] MEDS: AMOXIL PO SCH ×2 (14:04→22:16)
--- NOTE | 2018-11-08 15:52 | PROGRESS NOTE ---
DATE: 11/08/2018 SUBJECTIVE: Patient has no major complaints. OBJECTIVE: Blood pressure is 129/53, heart rate of 101, respiratory rate 18, temperature 98 degrees.Cardiovascular: Regular rate and rhythm. Pulmonary: Bilateral breath sounds clear to auscultation. GI: Soft, nontender, nondistended. Bowel sounds are positive. LABORATORY DATA: 335, 431, 316, micro shows Enterococcus faecalis resistant to tetracyclines alone. PROBLEM LIS0T: 1. Dementia, she is stable. 2. Enterococcus urinary tract infection. I am not entirely sure this may not be just colonization but she gets more confused and then we treat her but is still sensitive to amoxicillin so will continue that for now. 3. Diabetes still not completely controlled. I bumped up her Lantus a little bit, will continue bump it up, probably related to infection. DISPOSITION: Still waiting on guardianship. cc: Zachery Bill MD
[2018-11-08] MEDS: FLOMAX PO SCH (22:15)
[2018-11-08] MEDS: LIPITOR PO SCH (22:16)
[2018-11-09] MEDS: SYNTHROID PO SCH ×2 (05:40→07:08)
[2018-11-09] MEDS: AMOXIL PO SCH ×3 (05:40→21:40)
[2018-11-09] MEDS: HUMULIN R (PARKWAY) SUBQ SCH ×4 (07:08→21:47)
[2018-11-09] MEDS: SEROQUEL PO SCH ×2 (08:42→21:41)
[2018-11-09] MEDS: TOPROL XL PO SCH (08:42)
[2018-11-09] MEDS: NORVASC PO SCH (08:42)
[2018-11-09] MEDS: VIMPAT PO SCH ×2 (08:42→21:41)
[2018-11-09] MEDS: LASIX PO SCH (08:42)
[2018-11-09] MEDS: ASPIRIN PO SCH (08:42)
[2018-11-09] MEDS: APRESOLINE PO SCH ×4 (08:42→16:52)
[2018-11-09] MEDS: LANTUS INSULIN SUBQ SCH (08:56)
--- NOTE | 2018-11-09 11:04 | PROGRESS NOTE ---
DATE: 11/09/2018 SUBJECTIVE: Patient without complaints. PHYSICAL EXAMINATION: Vital Signs: Stable. Temperature 97.9 degrees, pulse 81, respiratory rate is 20, BP 136/58. Blood sugars 200 to 335. Physical unchanged. She is awake, alert. She is in no distress. HEENT: Normocephalic. Neck: Supple. Cardiovascular: Regular rate. Chest: Clear. Abdomen: Soft. ASSESSMENT: 1. Enterococcus urinary tract infection. Currently is on antibiotics. Certainly may need to consider simply staying on Amoxil at this point. 2. Diabetes. Unable to get good blood sugar control as she frequently refuses to eat and her blood sugars drop. 3. Dementia. 4. Do Not Resuscitate. cc: Ricky Daley MD
[2018-11-09] MEDS: LIPITOR PO SCH (21:40)
[2018-11-09] MEDS: FLOMAX PO SCH (21:40)
[2018-11-10] MEDS: SYNTHROID PO SCH ×2 (05:21→06:16)
[2018-11-10] MEDS: AMOXIL PO SCH ×3 (05:21→20:28)
[2018-11-10] MEDS: HUMULIN R (PARKWAY) SUBQ SCH ×2 (06:45→10:11)
[2018-11-10] MEDS: LASIX PO SCH (10:02)
[2018-11-10] MEDS: LANTUS INSULIN SUBQ SCH (10:02)
[2018-11-10] MEDS: NORVASC PO SCH (10:03)
[2018-11-10] MEDS: VIMPAT PO SCH ×2 (10:03→20:27)
[2018-11-10] MEDS: TOPROL XL PO SCH (10:03)
[2018-11-10] MEDS: ASPIRIN PO SCH (10:03)
[2018-11-10] MEDS: APRESOLINE PO SCH ×3 (10:03→16:26)
[2018-11-10] MEDS: SEROQUEL PO SCH ×2 (10:03→20:27)
--- NOTE | 2018-11-10 19:20 | PROGRESS NOTE ---
DATE: 11/10/2018 SUBJECTIVE: No complaints. PHYSICAL EXAMINATION: Unchanged. Temperature 98.4 degrees, pulse 86, respiratory rate 20, BP 112/89. Patient is awake. She is in no distress. Blood sugars are relatively stable for her between 117 and 300. Physical exam is unchanged. ASSESSMENT: 1. Dementia. 2. Enterococcus urinary tract infection. 3. Diabetes. PLAN: Will continue her on Lantus without changing at this point as she is starting to have some lower blood sugars in the low 100s. We will continue Amoxil and will follow. cc: Ricky Daley MD
[2018-11-10] MEDS: LIPITOR PO SCH (20:28)
[2018-11-10] MEDS: FLOMAX PO SCH (20:28)
[2018-11-11] MEDS: HUMULIN R (PARKWAY) SUBQ SCH ×6 (00:51→21:39)
[2018-11-11] MEDS: AMOXIL PO SCH ×4 (06:35→21:39)
[2018-11-11] MEDS: SYNTHROID PO SCH ×2 (06:35→06:44)
[2018-11-11] MEDS: ASPIRIN PO SCH (10:16)
[2018-11-11] MEDS: TOPROL XL PO SCH (10:16)
[2018-11-11] MEDS: NORVASC PO SCH (10:16)
[2018-11-11] MEDS: APRESOLINE PO SCH ×2 (10:16→12:14)
[2018-11-11] MEDS: SEROQUEL PO SCH ×2 (10:16→21:38)
[2018-11-11] MEDS: VIMPAT PO SCH ×2 (10:16→21:38)
[2018-11-11] MEDS: LASIX PO SCH (10:16)
--- NOTE | 2018-11-11 19:35 | PROGRESS NOTE ---
DATE: 11/11/2018 SUBJECTIVE: Patient has no complaints. PHYSICAL EXAMINATION: Vital Signs: Reviewed and unchanged. Blood sugars are still elevated 260s to 340s. ASSESSMENT AND PLAN: We did increase the Lantus from 12 to 13 units. We will continue her on Amoxil and will follow. cc: Ricky Daley MD
[2018-11-11] MEDS: FLOMAX PO SCH (21:39)
[2018-11-11] MEDS: LIPITOR PO SCH (21:39)
[2018-11-12] MEDS: APRESOLINE PO SCH ×4 (00:38→17:38)
[2018-11-12] MEDS: AMOXIL PO SCH ×3 (05:12→21:45)
[2018-11-12] MEDS: SYNTHROID PO SCH ×2 (05:12→06:39)
[2018-11-12] MEDS: HUMULIN R (PARKWAY) SUBQ SCH ×5 (06:56→21:46)
[2018-11-12] MEDS: VIMPAT PO SCH ×2 (09:36→21:45)
[2018-11-12] MEDS: TOPROL XL PO SCH (09:36)
[2018-11-12] MEDS: SEROQUEL PO SCH ×2 (09:36→21:45)
[2018-11-12] MEDS: ASPIRIN PO SCH (09:36)
[2018-11-12] MEDS: NORVASC PO SCH (09:36)
[2018-11-12] MEDS: LASIX PO SCH (09:36)
--- NOTE | 2018-11-12 12:58 | PROGRESS NOTE ---
DATE: 11/12/2018 SUBJECTIVE: Patient without complaints. PHYSICAL EXAMINATION: Vital signs reviewed and stable. Blood sugar is elevated, 96 to 317. Physical exam is unchanged. PLAN: Patient will continue Amoxil for a total 10 day course for her urinary tract infection and then we will decrease to once daily. We will continue her insulin. We will increase Lantus to 14 units and will follow. cc: Ricky Daley MD
[2018-11-12] MEDS: FLOMAX PO SCH (21:44)
[2018-11-12] MEDS: LIPITOR PO SCH (21:45)
[2018-11-13] MEDS: AMOXIL PO SCH ×3 (05:16→21:47)
[2018-11-13] MEDS: HUMULIN R (PARKWAY) SUBQ SCH ×4 (06:29→21:49)
[2018-11-13] MEDS: SYNTHROID PO SCH (06:29)
[2018-11-13] MEDS: APRESOLINE PO SCH ×3 (10:26→18:17)
[2018-11-13] MEDS: LASIX PO SCH (10:26)
[2018-11-13] MEDS: VIMPAT PO SCH ×2 (10:26→21:47)
[2018-11-13] MEDS: NORVASC PO SCH (10:26)
[2018-11-13] MEDS: SEROQUEL PO SCH ×2 (10:26→21:47)
[2018-11-13] MEDS: ASPIRIN PO SCH (10:26)
[2018-11-13] MEDS: TOPROL XL PO SCH (10:26)
[2018-11-13] MEDS: LANTUS INSULIN SUBQ SCH (10:27)
[2018-11-13] MEDS: LIPITOR PO SCH (21:47)
[2018-11-13] MEDS: FLOMAX PO SCH (21:47)
[2018-11-14] MEDS: AMOXIL PO SCH ×3 (05:25→21:44)
[2018-11-14] MEDS: SYNTHROID PO SCH (06:20)
[2018-11-14] MEDS: HUMULIN R (PARKWAY) SUBQ SCH ×4 (06:20→21:46)
[2018-11-14] MEDS: APRESOLINE PO SCH ×3 (09:31→16:40)
[2018-11-14] MEDS: SEROQUEL PO SCH ×2 (09:31→21:44)
[2018-11-14] MEDS: TOPROL XL PO SCH (09:31)
[2018-11-14] MEDS: NORVASC PO SCH (09:31)
[2018-11-14] MEDS: ASPIRIN PO SCH (09:31)
[2018-11-14] MEDS: LASIX PO SCH (09:31)
[2018-11-14] MEDS: VIMPAT PO SCH ×2 (09:31→21:43)
[2018-11-14] MEDS: LANTUS INSULIN SUBQ SCH (09:32)
--- NOTE | 2018-11-14 15:21 | PROGRESS NOTE ---
DATE: 11/14/2018 No complaints. Physical unchanged. Blood sugars elevated 165 to 390. Currently, on 15 units of Lantus. We will finish her Amoxil today for her UTI, and we will follow. cc: Ricky Daley MD
[2018-11-14] MEDS: LIPITOR PO SCH (21:44)
[2018-11-14] MEDS: FLOMAX PO SCH (21:44)
[2018-11-15] MEDS: SYNTHROID PO SCH ×2 (05:37→06:42)
[2018-11-15] MEDS: AMOXIL PO SCH ×4 (05:37→20:44)
[2018-11-15] MEDS: HUMULIN R (PARKWAY) SUBQ SCH ×4 (06:42→21:12)
[2018-11-15] MEDS: APRESOLINE PO SCH ×4 (10:38→21:11)
[2018-11-15] MEDS: VIMPAT PO SCH ×2 (10:38→20:44)
[2018-11-15] MEDS: TOPROL XL PO SCH (10:38)
[2018-11-15] MEDS: LANTUS INSULIN SUBQ SCH (10:39)
[2018-11-15] MEDS: ASPIRIN PO SCH (10:39)
[2018-11-15] MEDS: NORVASC PO SCH (10:39)
[2018-11-15] MEDS: LASIX PO SCH (10:39)
[2018-11-15] MEDS: SEROQUEL PO SCH ×2 (13:25→20:44)
--- NOTE | 2018-11-15 14:36 | PROGRESS NOTE ---
DATE: 11/15/2018 SUBJECTIVE: Patient has no complaints. PHYSICAL EXAMINATION: Vital Signs: Reviewed. She is afebrile. Blood pressure is stable at 126/59. Blood sugar her good for her, between 74 and 247. She is awake, alert. She is in no distress, lying in the bed. Cardiovascular: Regular rate. Chest: Clear. ASSESSMENT: 1. Dementia. 2. Frequent Enterococcus urinary tract infections. We will need to repeat a urine culture and once negative, stop her Amoxil. 3. Diabetes. 4. Adult failure to thrive. cc: Ricky Dalye MD
[2018-11-15] MEDS: FLOMAX PO SCH (20:44)
[2018-11-15] MEDS: LIPITOR PO SCH (20:44)
[2018-11-16] MEDS: AMOXIL PO SCH ×3 (06:38→22:00)
[2018-11-16] MEDS: SYNTHROID PO SCH (06:39)
[2018-11-16] MEDS: HUMULIN R (PARKWAY) SUBQ SCH ×4 (06:39→22:40)
--- NOTE | 2018-11-16 09:01 | PROGRESS NOTE ---
DATE: 11/14/2018 SUBJECTIVE: Patient is seen and examined. She is in no current distress. PHYSICAL EXAMINATION: Vital Signs: Temperature 98.4 degrees, pulse 86, blood pressure 112/89. General: Patient is in no current distress. Her blood sugars remain elevated 187 to 431. She is awake, alert. She is in no distress. Physical exam is unchanged. ASSESSMENT AND PLAN: The patient unfortunately has now been in the hospital 365 days. Tomorrow will be her 1 year luis carlos of being in the hospital. We will continue her medications and continue to await being able to assist her to transition to long-term care. cc: Ricky Daley MD MTDD
[2018-11-16] MEDS: SEROQUEL PO SCH ×2 (09:35→22:00)
[2018-11-16] MEDS: LANTUS INSULIN SUBQ SCH (09:35)
[2018-11-16] MEDS: VIMPAT PO SCH ×2 (09:35→22:00)
[2018-11-16] MEDS: ASPIRIN PO SCH (09:35)
[2018-11-16] MEDS: TOPROL XL PO SCH (09:35)
[2018-11-16] MEDS: NORVASC PO SCH (09:35)
[2018-11-16] MEDS: APRESOLINE PO SCH ×3 (09:35→17:47)
[2018-11-16] MEDS: LASIX PO SCH (09:35)
--- NOTE | 2018-11-16 13:58 | PROGRESS NOTE ---
DATE: 11/16/2018 SUBJECTIVE: Patient reports no complaints as per nursing staff. She is eating, but not much. No acute issues noted per them. OBJECTIVE: Vital Signs: Temperature 97.6 degrees, heart rate 89, respiratory rate 18, blood pressure 133/60, O2 saturation 100% 2 L nasal cannula. General: This is a chronically ill- appearing and demented 83-year-old female lying in bed, in no acute distress. Cardiovascular: S1, S2 heard. No murmurs, gallops, or rubs. Regular rate and rhythm. Respiratory: Minimal rhonchi pulmonary bases. Patient not using any accessory muscles or having work of breathing. Abdomen: The patient is confused. She does not answer questions. Moves 4 extremities spontaneously. ASSESSMENT AND PLAN: 1. Advanced dementia. Aware. We will continue with same management. 2. Frequent Enterococcus urinary tract infections. We are going to repeat a urine culture and we will go from there. Apparently that bacteria is sensitive to amoxicillin, but is still present in the urine. We are going to repeat a culture today. 3. Diabetes mellitus type 2. Aware. 4. Adult failure to thrive. Aware. We will continue with supplements. cc: Onur Parada MD
[2018-11-16] MEDS: LIPITOR PO SCH (22:00)
[2018-11-16] MEDS: FLOMAX PO SCH (22:00)
[2018-11-16] MEDS: TYLENOL PO PRN (22:36)
[2018-11-17] MEDS: MAXIPIME 1 GM in NS 50 ML IV SCH ×2 (06:15→17:12)
[2018-11-17] MEDS: OFIRMEV 1000 MG/ISOTONIC SOLN 1,000 MG/100 ML BOTTLE IV PRN ×2 (06:15→13:24)
[2018-11-17] MEDS: SYNTHROID PO SCH (07:21)
[2018-11-17] MEDS: AMOXIL PO SCH ×2 (07:21→13:27)
[2018-11-17] MEDS: HUMULIN R (PARKWAY) SUBQ SCH ×4 (07:22→21:38)
[2018-11-17] MEDS: ZYVOX 600 MG/D5W 600 MG/300 ML IVPB IV SCH ×2 (08:06→20:08)
[2018-11-17 10:15] LABS: CALCIUM 8.5 mg/dL (8.8-10.2); CREATININE 1.2 mg/dL (0.5-0.9); POTASSIUM 3.6 mmol/L (3.5-5.1); TOTAL BILIRUBIN 0.4 mg/dL (0.20-1.00)
[2018-11-17 10:33] LABS: INR 1.29; PROTIME 16.7 Seconds (11.0-16.0)
[2018-11-17 10:34] LABS: PTT 41.8 Seconds (22.3-41.8)
[2018-11-17 10:40] LABS: BASO# 0.01 X1000 (0.0-0.2); EOS# 0.01 X1000 (0.0-0.7); HEMATOCRIT 21.6 % (37.0-47.0); HEMOGLOBIN 6.8 g/dL (12.0-16.0); IMM GRAN# 0.06 X1000 (0.0-0.04); IMM GRAN% 0.3 % (0.0-0.5); LYMPH# 0.59 X1000 (1.2-3.4); LYMPH% 2.8 % (20.5-51.1); MCHC 31.5 g/dL (33-37); MCV 79.4 FL (81-99); MONO# 1.57 X1000 (0.11-0.59); MONO% 7.5 % (1.7-9.3); MPV 11.5 FL (7.4-10.4); NEUT# 18.63 X1000 (1.4-6.5); NEUT% 89.4 % (42.2-75.2); PLT 309 X1000 (130-400); RBC 2.72 XMIL (4.2-5.4); RDW 18.4 % (11.5-14.5); WBC 20.87 X1000 (4.8-10.8)
[2018-11-17] MEDS: APRESOLINE PO SCH ×3 (10:56→16:18)
[2018-11-17] MEDS: VIMPAT PO SCH ×2 (10:56→21:39)
[2018-11-17] MEDS: TOPROL XL PO SCH (10:56)
[2018-11-17] MEDS: SEROQUEL PO SCH ×2 (10:57→21:38)
[2018-11-17] MEDS: ASPIRIN PO SCH (10:57)
[2018-11-17] MEDS: LANTUS INSULIN SUBQ SCH (10:57)
[2018-11-17] MEDS: NORVASC PO SCH (10:57)
[2018-11-17] MEDS: LASIX PO SCH (10:57)
--- NOTE | 2018-11-17 12:38 | Diag Imaging Result Doc PS360 ---
CT THORAX/ABD/PELVIS W/CON - 11/17/2018 INDICATION: fever of unknown source COMPARISON: 10/11/2018 FINDINGS: CHEST: Stable significant cardiomegaly. Stable trace pericardial effusion. There has been near-complete resolution of both pleural effusions. There is worsening hazy dependent airspace infiltrate bilaterally mainly in the lower lobes. The right upper lobe is also heavily affected. No mass or adenopathy. There is body wall edema that has worsened since prior. Abdomen pelvis: There is urinary bladder wall thickening with inflammation compatible with cystitis. There is severe diffuse constipation. There is a [employer] shunt with the tip at the inferior tip of the liver. No bowel obstruction or inflammation. There are a couple of stones in the left kidney, at the lower pole this is large measuring 13 x 10 mm. No hydronephrosis or hydroureter. There is mild bilateral renal scarring and there are several bilateral renal cysts. No free fluid. Mild body wall edema. There are fusion changes of the lumbar spine. There are moderate degenerative changes of the spine. No acute or suspicious bony lesion. IMPRESSION: 1. Significant worsening bilateral infiltrates in the lungs that are nonspecific. Resolution of the pleural effusions. Persistent cardiomegaly. 2. Severe diffuse constipation. 3. Cystitis. 4. Nonobstructing left renal stones. This exam was performed using automated exposure control, adjustment of mA or kV according to patient size, and/or use of iterative reconstruction technique Electronically signed by Kelby Lewis 11/17/2018 12:36 PM
[2018-11-17 14:04] LABS: ANISOCYTOSIS 3+; HYPOCHROM 1+; LYMPHS 3 % (21-51); MONO 7 % (1-9); SEGS 90 % (42-75)
[2018-11-17 14:05] LABS: MICROCYTOSIS 1+; TARGET CELLS OCCASIONAL
--- NOTE | 2018-11-17 15:02 | PROGRESS NOTE ---
DATE: 11/17/2018 SUBJECTIVE: As per nursing staff, patient started yesterday to become more and more sleepy and started spiking a fever. When I went to check on her this morning, she was very difficult to arouse. She has a poor appetite. OBJECTIVE: Vital Signs: Temperature 101.7 degrees, heart rate 89, respiratory rate 18, blood pressure 127/50, O2 saturation 100% on 2 L nasal cannula. General Examination: This is a chronically ill-appearing and demented, 83-year-old female lying in bed, in no acute distress. Cardiovascular: S1, S2 heart. No murmurs, gallops, or rubs. Regular rate and rhythm. Tachycardic. Respiratory: Some rhonchi noted in both pulmonary bases. Definitely a little bit worse in comparing with previous days. Patient is not using any accessory muscles or having work of breathing. Abdomen: Soft. A little bit distended but nontender to palpation. Bowel sounds present. No organomegaly. Extremities: No clubbing, cyanosis, or edema. Peripheral pulses present in both legs. Neurological: Patient is confused. Does not answer questions appropriately. Moves 4 extremities spontaneously. LABORATORY DATA: White cell count 20.87, hemoglobin 6.8, hematocrit 21.6, platelets 309,000. Normal BMP except creatinine 1.1. CT of the chest, abdomen, and pelvis showed significant worsening of bilateral infiltrates in the lungs that are nonspecific with resolution of the pleural effusion and persistent cardiomegaly. Severe diffuse constipation and cystitis with nonobstructing left renal stones. ASSESSMENT PLAN: 1. Hospital-acquired bilateral pneumonia. Unfortunately this patient started getting worse during the last 24 hours, spiking fever, mental status more compromise, and not eating okay. The CT of the chest, abdomen, and pelvis shows results as above and that confirmed hospital- acquired pneumonia. She has been in the hospital more than a year. We are going to start broad-spectrum antibiotics with Zyvox and cefepime. We will continue to monitor this patient closely. 2. Persistent Enterococcus urinary tract infection. The urine culture that we ordered yesterday is positive for gram-negative rods. I hope that with current antibiotics that this patient is receiving we can treat this infection. At this point, we will continue with the same management. 3. Diabetes mellitus type 2. Aware. Will continue home medications. We will be cautious with basal insulin considering that this patient is not eating again and when that happens her blood sugars go to the 30s and 40s. 4. Adult failure to thrive. Aware. We will continue with supplements. 5. Disposition. We will continue to monitor this patient closely. cc: Onur Parada MD
[2018-11-17] MEDS: MOTRIN PO PRN (16:18)
[2018-11-17] MEDS: FLOMAX PO SCH (21:38)
[2018-11-17] MEDS: LIPITOR PO SCH (21:38)
[2018-11-18] MEDS: MAXIPIME 1 GM in NS 50 ML IV SCH (05:32)
[2018-11-18] MEDS: HUMULIN R (PARKWAY) SUBQ SCH ×5 (06:04→21:33)
[2018-11-18] MEDS: SYNTHROID PO SCH (06:04)
[2018-11-18 06:56] LABS: HEMATOCRIT 28.2 % (37.0-47.0); MCH 25.5 PG (27-31); MCHC 31.9 g/dL (33-37); MCV 79.9 FL (81-99); RBC 3.53 XMIL (4.2-5.4); WBC 23.92 X1000 (4.8-10.8)
[2018-11-18 06:57] LABS: BASO# 0.02 X1000 (0.0-0.2); BASO% 0.1 % (0.0-0.8); EOS# 0.03 X1000 (0.0-0.7); EOS% 0.1 % (0.0-10.0); IMM GRAN% 0.4 % (0.0-0.5); LYMPH# 0.73 X1000 (1.2-3.4); LYMPH% 3.1 % (20.5-51.1); MONO# 1.92 X1000 (0.11-0.59); MPV 12.4 FL (7.4-10.4); NEUT# 21.12 X1000 (1.4-6.5); NEUT% 88.3 % (42.2-75.2); PLT 297 X1000 (130-400); POTASSIUM 3.8 mmol/L (3.5-5.1)
[2018-11-18 06:58] LABS: CALCIUM 8.9 mg/dL (8.8-10.2); CREATININE 1.2 mg/dL (0.5-0.9)
[2018-11-18] MEDS: ZYVOX 600 MG/D5W 600 MG/300 ML IVPB IV SCH ×2 (09:12→21:33)
[2018-11-18] MEDS: LANTUS INSULIN SUBQ SCH (09:12)
[2018-11-18] MEDS: ASPIRIN PO SCH (09:12)
[2018-11-18] MEDS: VIMPAT PO SCH ×2 (09:13→21:12)
[2018-11-18] MEDS: LASIX PO SCH (09:13)
[2018-11-18] MEDS: TOPROL XL PO SCH (09:13)
[2018-11-18] MEDS: APRESOLINE PO SCH ×3 (09:14→17:03)
[2018-11-18] MEDS: NORVASC PO SCH (09:14)
[2018-11-18] MEDS: SEROQUEL PO SCH ×2 (09:15→21:11)
[2018-11-18 09:41] LABS: LYMPHS 74 % (21-51); MONO 6 % (1-9); SEGS 87 % (42-75)
[2018-11-18 09:45] LABS: INR 1.13; PROTIME 15.1 Seconds (11.0-16.0)
--- NOTE | 2018-11-18 13:56 | PROGRESS NOTE ---
DATE: 11/18/2018 SUBJECTIVE: The patient per nursing staff and also upon my evaluation looks a little bit more awake today. Answered basic questions by yes or no. OBJECTIVE: Vital Signs: Temperature 97.3 degrees, heart rate 82, respiratory rate 16, blood pressure 146/79, O2 saturation 97% 2 L nasal cannula. General Examination: This is a chronically ill-appearing and demented 83-year-old female lying in bed, in no acute distress. Cardiovascular: S1, S2 heard. No murmurs, gallops, or rubs. Regular rate and rhythm. Respiratory: Some rhonchi is noted in both pulmonary bases. Same in comparing with yesterday. Patient is not using any accessory muscles or having work of breathing. Abdomen: Soft, nontender to palpation. Bowel sounds present. No organomegaly. Extremities: No clubbing, cyanosis, or edema. Peripheral pulses present in both legs. Neurological: The patient is a little bit less confused does answer basic questions appropriately. Extremities: Moves 4 extremities spontaneously. LABORATORY DATA: White cell count 23.82, hemoglobin 9.0, hematocrit 28.2, platelets 297,000. BMP remarkable for glucose 431. ASSESSMENT/PLAN: 1. Hospital-acquired pneumonia, bilateral. We will continue with Zyvox and cefepime. Clinically, patient is better. We will continue to monitor. 2. Anemia of chronic disease. After 1 unit of blood hemoglobin is 9.0. We will continue to monitor. 3. Persistent enterococcus urinary tract infection. Apparently, this is sensitive to Amoxil. At this time, the urine culture showed E coli Extended Spectrum Beta lactamase so we are going to switch antibiotics from cefepime to meropenem, will complete at least 14 days of antibiotics. 4. Diabetes mellitus type 2. We will continue with Accu-Chek before meals and also at bedtime and sliding scale insulin as well. 5. Adult failure to thrive, aware. DISPOSITION: We will continue to monitor this patient closely. cc: MD DELMI Parsons
[2018-11-18] MEDS: MERREM 1 GM in NS 50 ML IV SCH ×2 (14:07→21:12)
[2018-11-18] MEDS: LIPITOR PO SCH (21:12)
[2018-11-18] MEDS: FLOMAX PO SCH (21:12)
[2018-11-19] MEDS: MERREM 1 GM in NS 50 ML IV SCH ×3 (06:33→21:27)
[2018-11-19] MEDS: SYNTHROID PO SCH ×3 (06:33→06:56)
[2018-11-19] MEDS: HUMULIN R (PARKWAY) SUBQ SCH ×4 (06:34→21:42)
[2018-11-19 07:33] LABS: BASO# 0.02 X1000 (0.0-0.2); BASO% 0.1 % (0.0-0.8); EOS# 0.13 X1000 (0.0-0.7); EOS% 0.8 % (0.0-10.0); HEMOGLOBIN 8.7 g/dL (12.0-16.0); IMM GRAN% 0.6 % (0.0-0.5); LYMPH# 1.06 X1000 (1.2-3.4); LYMPH% 6.1 % (20.5-51.1); MCH 25.1 PG (27-31); MCHC 32.2 g/dL (33-37); MONO# 1.83 X1000 (0.11-0.59); MONO% 10.6 % (1.7-9.3); MPV 11.7 FL (7.4-10.4); NEUT# 14.15 X1000 (1.4-6.5); NEUT% 81.8 % (42.2-75.2); PLT 268 X1000 (130-400); RBC 3.46 XMIL (4.2-5.4); RDW 17.7 % (11.5-14.5); WBC 17.29 X1000 (4.8-10.8)
[2018-11-19 07:49] LABS: CALCIUM 8.7 mg/dL (8.8-10.2); CREATININE 1.3 mg/dL (0.5-0.9); POTASSIUM 3.6 mmol/L (3.5-5.1)
[2018-11-19] MEDS: ZYVOX 600 MG/D5W 600 MG/300 ML IVPB IV SCH (08:10)
[2018-11-19] MEDS: TOPROL XL PO SCH (10:50)
[2018-11-19] MEDS: ASPIRIN PO SCH (10:50)
[2018-11-19] MEDS: SEROQUEL PO SCH ×2 (10:50→21:25)
[2018-11-19] MEDS: APRESOLINE PO SCH ×3 (10:50→16:30)
[2018-11-19] MEDS: VIMPAT PO SCH ×2 (10:50→21:42)
[2018-11-19] MEDS: LASIX PO SCH (10:50)
[2018-11-19] MEDS: NORVASC PO SCH (10:51)
[2018-11-19] MEDS: LANTUS INSULIN SUBQ SCH (11:41)
--- NOTE | 2018-11-19 12:15 | PROGRESS NOTE ---
DATE: 11/19/2018 SUBJECTIVE: The patient is nonverbal and mumbling unintelligible words. She looks more awake. No acute issues noted as per nursing staff overnight. OBJECTIVE: Vital Signs: Temperature 97.6 degrees, heart rate 80, respiratory rate 18, blood pressure 150/68, O2 saturation 98% on 3 L nasal cannula. General Examination: This is a chronically ill-appearing and demented, 83-year-old, female lying in bed, in no acute distress. Cardiovascular Examination: S1 and S2 heard. No murmurs, gallops, or rubs. Regular rate and rhythm. Respiratory Examination: Some rhonchi is still noted in both pulmonary bases. Patient is not using any accessory muscles or having work of breathing. Abdomen: Soft, nontender to palpation. Bowel sounds present. No organomegaly. Extremities: No clubbing, cyanosis, or edema. Peripheral pulses present in both legs. Neurological Examination: The patient is less confused. Does not answer questions. Moves 4 extremities spontaneously. Laboratory Data: White cell count 17.29, hemoglobin 8.7, hematocrit 27.0, platelets 268,000. BMP that reveals creatinine 1.3, with blood sugar 241. ASSESSMENT AND PLAN: 1. Bilateral hospital-acquired pneumonia. We will continue with Zyvox and cefepime. White cell count is still elevated. We will continue with the same management. We will continue with breathing treatments. 2. Anemia of chronic disease. After 1 unit of blood, hemoglobin is 8.6 today. We will continue to monitor. 3. Escherichia coli, extended-spectrum B-lactamase positive urinary tract infection. We will continue with meropenem. We will complete 14 days of this antibiotic. 4. Diabetes mellitus type 2. We will continue with Accu-Chek before meals and also at bedtime, and sliding scale insulin. 5. Adult failure to thrive. Aware. 6. Disposition. We will continue to monitor this patient closely. cc: Onur Parada MD
[2018-11-19] MEDS: ZOFRAN ODT PO PRN (17:37)
[2018-11-19] MEDS: FLOMAX PO SCH (21:25)
[2018-11-19] MEDS: LIPITOR PO SCH (21:25)
[2018-11-20] MEDS: ZYVOX 600 MG/D5W 600 MG/300 ML IVPB IV SCH (00:15)
[2018-11-20] MEDS: MERREM 1 GM in NS 50 ML IV SCH ×3 (06:21→21:51)
[2018-11-20] MEDS: HUMULIN R (PARKWAY) SUBQ SCH ×4 (06:28→21:50)
[2018-11-20 07:15] LABS: BASO# 0.01 X1000 (0.0-0.2); BASO% 0.1 % (0.0-0.8); EOS# 0.23 X1000 (0.0-0.7); EOS% 1.9 % (0.0-10.0); HEMATOCRIT 27.6 % (37.0-47.0); HEMOGLOBIN 8.8 g/dL (12.0-16.0); IMM GRAN# 0.05 X1000 (0.0-0.04); IMM GRAN% 0.4 % (0.0-0.5); LYMPH# 1.09 X1000 (1.2-3.4); LYMPH% 9.2 % (20.5-51.1); MCH 24.7 PG (27-31); MCHC 31.9 g/dL (33-37); MCV 77.5 FL (81-99); MONO# 1.38 X1000 (0.11-0.59); MONO% 11.7 % (1.7-9.3); MPV 12.2 FL (7.4-10.4); NEUT# 9.07 X1000 (1.4-6.5); NEUT% 76.7 % (42.2-75.2); PLT 294 X1000 (130-400); RBC 3.56 XMIL (4.2-5.4); RDW 18.2 % (11.5-14.5); WBC 11.83 X1000 (4.8-10.8)
[2018-11-20 07:25] LABS: CALCIUM 8.5 mg/dL (8.8-10.2); CREATININE 1.2 mg/dL (0.5-0.9); POTASSIUM 3.7 mmol/L (3.5-5.1)
[2018-11-20] MEDS: LASIX PO SCH (08:44)
[2018-11-20] MEDS: NORVASC PO SCH (08:44)
[2018-11-20] MEDS: SEROQUEL PO SCH ×2 (08:44→21:50)
[2018-11-20] MEDS: APRESOLINE PO SCH ×3 (08:44→17:32)
[2018-11-20] MEDS: ZYVOX PO SCH ×2 (08:44→21:50)
[2018-11-20] MEDS: TOPROL XL PO SCH (08:44)
[2018-11-20] MEDS: SYNTHROID PO SCH (08:45)
[2018-11-20] MEDS: ASPIRIN PO SCH (08:45)
[2018-11-20] MEDS: LANTUS INSULIN SUBQ SCH (11:21)
[2018-11-20] MEDS: VIMPAT PO SCH ×2 (11:23→21:50)
--- NOTE | 2018-11-20 12:47 | PROGRESS NOTE ---
DATE: 11/20/2018 SUBJECTIVE: Patient continues to be nonverbal. According to nursing staff, she is feeling better. She is complaining sometimes of left hip pain. No other issues noted. OBJECTIVE: Vital Signs: Temperature 96.3 degrees, heart rate 60, respiratory rate 16, blood pressure 147/82, O2 saturation 93% on 2 L nasal cannula. General: This is a chronically ill- appearing and demented 83-year-old female lying in bed, in no acute distress. Cardiovascular: S1, S2 heard. No murmurs, gallops, or rubs. Regular rate and rhythm. Respiratory: Rhonchi still noted in both pulmonary bases. Patient not using any accessory muscles or having work of breathing. Abdomen: Soft. Nontender to palpation. Bowel sounds present. No organomegaly. Extremities: No clubbing, cyanosis, or edema. Peripheral pulses present in both legs. Neurological: Patient is less confused but does not answer questions. Moves 4 extremities spontaneously. LABORATORY DATA: White cell count 11.83, hemoglobin 8.9, hematocrit 27.6, platelets 294,000 with normal BMP except creatinine 1.2 and blood sugars 191. ASSESSMENT/PLAN: 1. Bilateral hospital acquired pneumonia. Patient is on meropenem. White cell count is almost back to normal. We will continue with the same management. 2. We will continue with breathing treatments as well. 3. Anemia of chronic disease. Hemoglobin continues to be stable at 8.8 today. We will continue to monitor CBC. 4. Escherichia coli extended-spectrum beta lactamase positive urinary tract infection. We will continue with meropenem today is day #2 of treatment. Will complete 14 days of antibiotics. 5. Diabetes mellitus type 2. We will continue with Accu-Chek before meals and also at bedtime and sliding scale insulin as well. 6. Adult failure to thrive. Aware. 7. Disposition. We will continue to monitor this patient closely. cc: Onur Parada MD
[2018-11-20] MEDS: LIPITOR PO SCH (21:50)
[2018-11-20] MEDS: FLOMAX PO SCH (21:50)
[2018-11-21] MEDS: MERREM 1 GM in NS 50 ML IV SCH ×3 (06:00→21:11)
[2018-11-21] MEDS: SYNTHROID PO SCH (06:01)
[2018-11-21] MEDS: HUMULIN R (PARKWAY) SUBQ SCH ×4 (06:02→20:13)
[2018-11-21 09:27] LABS: BASO# 0.02 X1000 (0.0-0.2); BASO% 0.2 % (0.0-0.8); EOS# 0.29 X1000 (0.0-0.7); EOS% 2.2 % (0.0-10.0); HEMATOCRIT 30.6 % (37.0-47.0); IMM GRAN# 0.08 X1000 (0.0-0.04); IMM GRAN% 0.6 % (0.0-0.5); LYMPH# 1.12 X1000 (1.2-3.4); LYMPH% 8.5 % (20.5-51.1); MCH 25.4 PG (27-31); MCHC 32.7 g/dL (33-37); MCV 77.7 FL (81-99); MONO# 1.15 X1000 (0.11-0.59); MONO% 8.7 % (1.7-9.3); MPV 11.1 FL (7.4-10.4); NEUT% 79.8 % (42.2-75.2); PLT 290 X1000 (130-400); RBC 3.94 XMIL (4.2-5.4); RDW 18.6 % (11.5-14.5); WBC 13.16 X1000 (4.8-10.8)
[2018-11-21] MEDS: SEROQUEL PO SCH ×2 (09:29→20:14)
[2018-11-21] MEDS: VIMPAT PO SCH ×2 (09:29→20:14)
[2018-11-21] MEDS: TOPROL XL PO SCH (09:29)
[2018-11-21] MEDS: LASIX PO SCH (09:29)
[2018-11-21] MEDS: ZYVOX PO SCH ×2 (09:29→20:13)
[2018-11-21] MEDS: LANTUS INSULIN SUBQ SCH (09:30)
[2018-11-21] MEDS: ASPIRIN PO SCH (09:30)
[2018-11-21] MEDS: APRESOLINE PO SCH ×3 (09:30→17:15)
[2018-11-21] MEDS: NORVASC PO SCH (09:30)
--- NOTE | 2018-11-21 13:28 | PROGRESS NOTE ---
DATE: 11/21/2018 SUBJECTIVE: The patient, according to nursing staff, has been quiet, sometimes yelling. Continues to be nonverbal upon my examination. No other issues noted. OBJECTIVE: Vital Signs: Temperature 98.1 degrees, heart rate 84, respiratory rate 22, blood pressure 181/90, O2 saturation 100% on 2 L nasal cannula. General: This is a chronically ill- appearing and demented 83-year-old female lying in bed, in no acute distress. Cardiovascular: S1, S2 heard. No murmurs, gallops, or rubs. Regular rate and rhythm. Respiratory: Rhonchi is still noted in both pulmonary bases. The patient is not using any accessory muscles or having work of breathing. Abdomen: Soft, nontender to palpation. Bowel sounds present. No organomegaly. Extremities: No clubbing, cyanosis, or edema. Peripheral pulses present in both legs. Neurologic: Patient is still confused but more awake in comparing with the last 4 days. Does not answer questions appropriately. Moves all 4 extremities spontaneously. LABORATORY DATA: Reviewed. ASSESSMENT AND PLAN: 1. Bilateral hospital-acquired pneumonia. The patient is on Zyvox and meropenem. White cell count is still mildly elevated. At this point, we will continue with the same management. 2. Anemia of chronic disease. Hemoglobin continues to be stable. We will continue to check CBC daily. 3. Escherichia coli, ESBL positive UTI. We will continue with meropenem, day #3 of treatment. We will complete 14 days of antibiotics. 4. Diabetes mellitus, type 2. We will continue Accu-Chek before meals and also at bedtime, and sliding scale insulin as well. 5. Adult failure to thrive. Aware. We will continue with supplements. 6. Disposition. We will continue to monitor this patient closely. We are still waiting for placement for her. cc: Onur Parada MD
[2018-11-21] MEDS: FLOMAX PO SCH (20:13)
[2018-11-21] MEDS: LIPITOR PO SCH (20:14)
[2018-11-22] MEDS: MERREM 1 GM in NS 50 ML IV SCH ×3 (05:05→21:28)
[2018-11-22] MEDS: SYNTHROID PO SCH (06:10)
[2018-11-22] MEDS: HUMULIN R (PARKWAY) SUBQ SCH ×4 (06:10→20:09)
[2018-11-22 07:53] LABS: BASO# 0.02 X1000 (0.0-0.2); BASO% 0.2 % (0.0-0.8); EOS# 0.22 X1000 (0.0-0.7); EOS% 2.1 % (0.0-10.0); HEMATOCRIT 29.4 % (37.0-47.0); HEMOGLOBIN 9.3 g/dL (12.0-16.0); IMM GRAN# 0.08 X1000 (0.0-0.04); IMM GRAN% 0.8 % (0.0-0.5); LYMPH# 1.47 X1000 (1.2-3.4); LYMPH% 13.8 % (20.5-51.1); MCH 24.9 PG (27-31); MCHC 31.6 g/dL (33-37); MCV 78.6 FL (81-99); MONO# 0.98 X1000 (0.11-0.59); MONO% 9.2 % (1.7-9.3); MPV 11.1 FL (7.4-10.4); NEUT# 7.88 X1000 (1.4-6.5); NEUT% 73.9 % (42.2-75.2); PLT 280 X1000 (130-400); RBC 3.74 XMIL (4.2-5.4); RDW 18.9 % (11.5-14.5); WBC 10.65 X1000 (4.8-10.8)
[2018-11-22 08:11] LABS: AGAP 11; CHLORIDE 107 mmol/L (98-107); POTASSIUM 3.4 mmol/L (3.5-5.1); SODIUM 145 mmol/L (136-145); TCO2 28 mmol/L (25-35)
[2018-11-22 08:12] LABS: BUN 18 mg/dL (8-22); CALCIUM 8.8 mg/dL (8.8-10.2); COSMO 295; CREATININE 0.8 mg/dL (0.5-0.9); ESTIMATED GFR > 60; GLUCOSE 185 mg/dL (70-104)
[2018-11-22] MEDS: NORVASC PO SCH (09:36)
[2018-11-22] MEDS: SEROQUEL PO SCH ×2 (09:36→20:09)
[2018-11-22] MEDS: VIMPAT PO SCH ×2 (09:36→20:08)
[2018-11-22] MEDS: LASIX PO SCH (09:36)
[2018-11-22] MEDS: ZYVOX PO SCH ×2 (09:36→20:09)
[2018-11-22] MEDS: APRESOLINE PO SCH ×3 (09:36→17:42)
[2018-11-22] MEDS: ASPIRIN PO SCH (09:36)
[2018-11-22] MEDS: TOPROL XL PO SCH (09:36)
[2018-11-22] MEDS: LANTUS INSULIN SUBQ SCH (09:37)
[2018-11-22] MEDS: LIPITOR PO SCH (20:09)
[2018-11-22] MEDS: FLOMAX PO SCH (20:09)
[2018-11-23] MEDS: MERREM 1 GM in NS 50 ML IV SCH ×3 (05:05→21:55)
[2018-11-23] MEDS: HUMULIN R (PARKWAY) SUBQ SCH ×4 (06:05→22:05)
[2018-11-23] MEDS: SYNTHROID PO SCH (06:06)
[2018-11-23 07:40] LABS: BASO# 0.02 X1000 (0.0-0.2); BASO% 0.2 % (0.0-0.8); EOS# 0.38 X1000 (0.0-0.7); EOS% 3.2 % (0.0-10.0); HEMATOCRIT 28.4 % (37.0-47.0); HEMOGLOBIN 9.1 g/dL (12.0-16.0); IMM GRAN# 0.08 X1000 (0.0-0.04); IMM GRAN% 0.7 % (0.0-0.5); LYMPH# 1.84 X1000 (1.2-3.4); LYMPH% 15.4 % (20.5-51.1); MCH 25.1 PG (27-31); MCV 78.5 FL (81-99); MONO# 1.04 X1000 (0.11-0.59); MONO% 8.7 % (1.7-9.3); NEUT# 8.61 X1000 (1.4-6.5); NEUT% 71.8 % (42.2-75.2); PLT 155 X1000 (130-400); RBC 3.62 XMIL (4.2-5.4); WBC 11.97 X1000 (4.8-10.8)
[2018-11-23 07:54] LABS: AGAP 13; BUN 16 mg/dL (8-22); CALCIUM 8.3 mg/dL (8.8-10.2); CHLORIDE 104 mmol/L (98-107); COSMO 296; CREATININE 0.8 mg/dL (0.5-0.9); ESTIMATED GFR > 60; GLUCOSE 248 mg/dL (70-104); POTASSIUM 3.5 mmol/L (3.5-5.1); SODIUM 144 mmol/L (136-145); TCO2 26 mmol/L (25-35)
[2018-11-23 08:28] LABS: TSH 3.34 uIUmL (0.27-4.20)
--- NOTE | 2018-11-23 08:41 | PROGRESS NOTE ---
DATE: 11/22/2018 SUBJECTIVE: The patient, according to the nursing staff, has been fine, back to his baseline, not lethargic anymore, sometimes quiet, sometimes yelling. He is still nonverbal upon my examination. No other issues noted. OBJECTIVE: Vital Signs: Temperature 97.5, heart rate 75, respiratory rate 12, blood pressure 137/77, O2 saturation 100% on 3 L nasal cannula. General: This is a chronically ill-appearing and demented, 83-year-old, female, lying in bed in no acute distress. Cardiovascular: S1, S2 heard. No murmurs, gallops, or rubs. Regular rate and rhythm. Respiratory: There is rhonchi still noted in both pulmonary bases, pretty much similar in comparing with the last previous days. The patient is not using any accessory muscles or having work of breathing. Abdomen: Soft. A little bit distended, but nontender to palpation. Bowel sounds present. No organomegaly. Extremities: No clubbing, cyanosis, or edema. Peripheral pulses are present in both legs. Muscle wasting noted. Neurological: The patient continues to be confused, but definitely more awake in comparing with 5 days ago when we found out that this patient has a pneumonia. Does not answer questions appropriately. Moves all 4 extremities spontaneously. LABORATORY DATA: Reviewed. ASSESSMENT AND PLAN: 1. Bilateral hospital-acquired pneumonia. The patient is on Zyvox and meropenem. Zyvox day #3. Planning to complete 10 days of that medication. 2. Anemia of chronic disease. Hemoglobin continues to be stable. During this week, she has been transfused 1 unit of blood, and so far she is stable. At some point, she has reached hemoglobin of 6.7. 3. Escherichia coli extended spectrum beta-lactamase positive urinary tract infection. Will continue with meropenem, which is day #4 of treatment. Will complete a total of 14 days of antibiotics. 4. Diabetes mellitus type 2. Will continue with Accu-Chek before meals and also at bedtime, and sliding scale insulin as well. 5. Adult failure to thrive. Aware. Will continue with Ensure. 6. Disposition. At this point, will continue to monitor this patient closely. Clinically, this patient is getting better from this bilateral pneumonia. Will continue to monitor this patient closely, and still, of course, waiting for placement for her. cc: Onur Parada MD
[2018-11-23] MEDS: ZYVOX PO SCH ×2 (10:01→22:05)
[2018-11-23] MEDS: LANTUS INSULIN SUBQ SCH (10:01)
[2018-11-23] MEDS: VIMPAT PO SCH ×2 (10:01→21:52)
[2018-11-23] MEDS: NORVASC PO SCH (10:02)
[2018-11-23] MEDS: APRESOLINE PO SCH ×3 (10:02→16:00)
[2018-11-23] MEDS: LASIX PO SCH (10:02)
[2018-11-23] MEDS: ASPIRIN PO SCH (10:02)
[2018-11-23] MEDS: SEROQUEL PO SCH ×2 (10:02→21:53)
[2018-11-23] MEDS: TOPROL XL PO SCH (10:02)
--- NOTE | 2018-11-23 19:16 | PROGRESS NOTE ---
DATE: 11/23/2018 SUBJECTIVE: The patient seen. She is in no distress. She has no complaints. PHYSICAL EXAMINATION: Vital signs reviewed. Temperature 97.5 degrees, pulse 80, respiratory 18, BP 156/83. Blood sugars 200 to 300. HEENT: Normocephalic. Neck: Supple. Cardiovascular: Regular rate. Chest: Clear nonlabored. ASSESSMENT: 1. Bilateral hospital acquired pneumonia, currently is on Zyvox and Merrem. We will continue this for 10 days. 2. Escherichia coli. Has a history of extended spectrum beta-lactamases positive. She is on day 3 of Merrem for a 14-day treatment. 3. Diabetes. 4. Adult failure to thrive. 5. Do not resuscitate. PLAN: We will continue patient in the hospital. Continue antibiotics. Symptomatic control and will follow. cc: Ricky Daley MD
[2018-11-23] MEDS: LIPITOR PO SCH (21:53)
[2018-11-23] MEDS: FLOMAX PO SCH (21:55)
[2018-11-24] MEDS: MERREM 1 GM in NS 50 ML IV SCH ×3 (05:50→21:13)
[2018-11-24 06:50] LABS: BILIRUBIN URINE NEGATIVE (NEGATIVE); BLOOD URINE 1+ (NEGATIVE); CLARITY CLEAR (CLEAR); COLOR YELLOW; GLUCOSE URINE NEGATIVE (NEGATIVE); KETONE URINE TRACE mg/dL (NEGATIVE); LEUKOCYTES URINE 2+ (NEGATIVE); NITRITE URINE NEGATIVE (NEGATIVE); PH URINE 6.5; PROTEIN URINE 2+(100 mg/dL) mg/dL (NEGATIVE); SP GRAVITY URINE 1.015; UROBILINOGEN URINE NORMAL
[2018-11-24 06:51] LABS: URINE BACTERIA 3+ /HFP; URINE EPITHELIAL CELLS <10 /HPF (<10); URINE RBC <10 /HPF (<10); URINE WBC TNTC /HPF (<10)
[2018-11-24 06:52] LABS: URINE CAST NONE SEEN /LPF; URINE CRYSTAL NONE SEEN /HPF; URINE SOURCE CATH; URINE YEAST PRESENT /HPF
[2018-11-24] MEDS: HUMULIN R (PARKWAY) SUBQ SCH ×3 (06:58→16:09)
[2018-11-24] MEDS: SYNTHROID PO SCH ×2 (07:10→08:55)
[2018-11-24 07:13] LABS: HEMATOCRIT 29.7 % (37.0-47.0); HEMOGLOBIN 9.4 g/dL (12.0-16.0); MCHC 31.6 g/dL (33-37); RBC 3.76 XMIL (4.2-5.4); WBC 9.58 X1000 (4.8-10.8)
[2018-11-24 07:32] LABS: AGAP 13; ALBUMIN 3.3 g/dL (3.5-5.0); ALKALINE PHOSPHATASE 101 U/L (32-104); BUN 15 mg/dL (8-22); CALCIUM 8.8 mg/dL (8.8-10.2); CHLORIDE 103 mmol/L (98-107); COSMO 289; CREATININE 0.7 mg/dL (0.5-0.9); ESTIMATED GFR > 60; GLUCOSE 229 mg/dL (70-104); GOT 19 U/L (10-30); GPT 14 U/L (10-36); POTASSIUM 3.7 mmol/L (3.5-5.1); SODIUM 141 mmol/L (136-145); TCO2 25 mmol/L (25-35); TOTAL PROTEIN 6.8 g/dL (6.3-8.3)
[2018-11-24] MEDS: LANTUS INSULIN SUBQ SCH (08:54)
[2018-11-24] MEDS: APRESOLINE PO SCH ×3 (08:55→17:34)
[2018-11-24] MEDS: TOPROL XL PO SCH (08:55)
[2018-11-24] MEDS: SEROQUEL PO SCH ×2 (08:55→20:20)
[2018-11-24] MEDS: LASIX PO SCH (08:55)
[2018-11-24] MEDS: VIMPAT PO SCH ×2 (08:55→20:20)
[2018-11-24] MEDS: ASPIRIN PO SCH (08:55)
[2018-11-24] MEDS: NORVASC PO SCH (08:55)
[2018-11-24] MEDS: ZYVOX PO SCH ×2 (08:55→20:20)
--- NOTE | 2018-11-24 19:04 | PROGRESS NOTE ---
DATE: 11/24/2018 SUBJECTIVE: The patient currently has no complaints. The staff have no concerns currently. OBJECTIVE: Temperature 97.5 degrees, pulse 80, respiratory 18, BP 150s/80s. General: The patient is lying in bed. She is in no current respiratory distress. Neck supple.Cardiovascular: Regular rate. Chest clear. ASSESSMENT: 1. Escherichia coli bacteremia. 2. Escherichia coli urinary tract infection. 3. Bilateral pneumonia. 4. Anemia of chronic disease. 5. Diabetes type 2, with very difficult to control blood sugars due to very sporadic swings of 50 and 60s to 400s. 6. Do Not Resuscitate/Allow Natural 7. Adult failure to thrive. PLAN: We will continue the patient in the hospital. Continue Merrem and Zyvox for now. We will consider stopping Zyvox over the next day or two, as her pneumonia should be due to Escherichia coli, and we will follow. cc: Ricky Dlaey MD
[2018-11-24] MEDS: FLOMAX PO SCH (20:19)
[2018-11-24] MEDS: LIPITOR PO SCH (20:20)
[2018-11-25] MEDS: MERREM 1 GM in NS 50 ML IV SCH ×3 (05:43→21:35)
[2018-11-25] MEDS: HUMULIN R (PARKWAY) SUBQ SCH ×5 (05:43→21:25)
[2018-11-25] MEDS: SYNTHROID PO SCH ×2 (05:54→07:33)
[2018-11-25] MEDS: APRESOLINE PO SCH ×3 (09:16→17:18)
[2018-11-25] MEDS: TOPROL XL PO SCH (09:16)
[2018-11-25] MEDS: NORVASC PO SCH (09:16)
[2018-11-25] MEDS: VIMPAT PO SCH ×2 (09:16→21:35)
[2018-11-25] MEDS: ASPIRIN PO SCH (09:16)
[2018-11-25] MEDS: LASIX PO SCH (09:16)
[2018-11-25] MEDS: SEROQUEL PO SCH ×2 (09:16→21:35)
[2018-11-25] MEDS: LANTUS INSULIN SUBQ SCH (09:16)
--- NOTE | 2018-11-25 14:00 | PROGRESS NOTE ---
DATE: 11/25/2018 SUBJECTIVE: Patient has no new complaints. PHYSICAL EXAMINATION: Vital Signs: Reviewed. Temperature 97 degrees, pulse 75, respiratory 18, BP 141/67. General: Patient is in no distress. She is awake and alert. Physical exam is unchanged. Cardiovascular: Regular rate. Chest: Clear, nonlabored. Abdomen: Soft, nondistended. Extremities: She moves all extremities. ASSESSMENT: 1. Bilateral pneumonia hospital-acquired as the patient has been in the hospital for now over 1 year. 2. Diabetes with marked swings in her blood sugar from 130s to 400s yesterday. 3. Hypertension. 4. Adult failure to thrive. 5. Do not resuscitate. PLAN: We will continue patient in the hospital. She has ESBL positive E coli in her urine and in her blood. We will continue Merrem. At this point, we will stop the Zyvox as it should be the cause of her pneumonia as well, and we will continue to follow. cc: Ricky Daley MD
[2018-11-25] MEDS: DIFLUCAN PO SCH (18:50)
[2018-11-25] MEDS: FLOMAX PO SCH (21:35)
[2018-11-25] MEDS: LIPITOR PO SCH (21:35)
[2018-11-26] MEDS: MERREM 1 GM in NS 50 ML IV SCH ×3 (05:12→21:57)
[2018-11-26 05:54] LABS: HEMATOCRIT 30.3 % (37.0-47.0); HEMOGLOBIN 9.6 g/dL (12.0-16.0); MCH 24.8 PG (27-31); MCHC 31.7 g/dL (33-37); MCV 78.3 FL (81-99); MPV 10.6 FL (7.4-10.4); RBC 3.87 XMIL (4.2-5.4); RDW 19.1 % (11.5-14.5); WBC 12.73 X1000 (4.8-10.8)
[2018-11-26] MEDS: SYNTHROID PO SCH (06:03)
[2018-11-26 06:25] LABS: AGAP 10; ALBUMIN 3.5 g/dL (3.5-5.0); ALKALINE PHOSPHATASE 102 U/L (32-104); BUN 15 mg/dL (8-22); CALCIUM 8.8 mg/dL (8.8-10.2); CHLORIDE 103 mmol/L (98-107); COSMO 286; CREATININE 0.6 mg/dL (0.5-0.9); ESTIMATED GFR > 60; GLUCOSE 98 mg/dL (70-104); GOT 14 U/L (10-30); GPT 16 U/L (10-36); POTASSIUM 3.5 mmol/L (3.5-5.1); SODIUM 143 mmol/L (136-145); TCO2 30 mmol/L (25-35); TOTAL PROTEIN 6.9 g/dL (6.3-8.3)
[2018-11-26] MEDS: HUMULIN R (PARKWAY) SUBQ SCH ×4 (06:28→21:57)
[2018-11-26] MEDS: APRESOLINE PO SCH ×3 (10:20→18:18)
[2018-11-26] MEDS: TOPROL XL PO SCH (10:20)
[2018-11-26] MEDS: NORVASC PO SCH (10:20)
[2018-11-26] MEDS: DIFLUCAN PO SCH (10:21)
[2018-11-26] MEDS: VIMPAT PO SCH ×2 (10:21→21:56)
[2018-11-26] MEDS: ASPIRIN PO SCH (10:21)
[2018-11-26] MEDS: SEROQUEL PO SCH ×2 (10:21→21:56)
[2018-11-26] MEDS: LASIX PO SCH (10:21)
[2018-11-26] MEDS: LANTUS INSULIN SUBQ SCH (10:22)
--- NOTE | 2018-11-26 13:56 | PROGRESS NOTE ---
DATE: 11/26/2018 CHIEF COMPLAINT: The patient has no complaints. PHYSICAL EXAMINATION: Vital Signs: Reviewed and stable. Her physical exam is unchanged. ASSESSMENT: 1. Bilateral hospital-acquired pneumonia. 2. Anemia of chronic disease. 3. Extended spectrum beta-lactamases positive urinary tract infection. PLAN: We will continue patient in the hospital. Continue to follow. We will continue Merrem for now. We will stop her Zyvox. cc: Ricky Daley MD
[2018-11-26] MEDS: FLOMAX PO SCH (21:56)
[2018-11-26] MEDS: LIPITOR PO SCH (21:56)
[2018-11-27] MEDS: MERREM 1 GM in NS 50 ML IV SCH ×3 (05:11→22:26)
[2018-11-27] MEDS: SYNTHROID PO SCH (06:17)
[2018-11-27] MEDS: HUMULIN R (PARKWAY) SUBQ SCH ×4 (06:17→22:28)
[2018-11-27] MEDS: LANTUS INSULIN SUBQ SCH (10:04)
[2018-11-27] MEDS: TOPROL XL PO SCH (10:05)
[2018-11-27] MEDS: NORVASC PO SCH (10:05)
[2018-11-27] MEDS: APRESOLINE PO SCH ×4 (10:05→17:03)
[2018-11-27] MEDS: DIFLUCAN PO SCH (10:05)
[2018-11-27] MEDS: LASIX PO SCH (10:05)
[2018-11-27] MEDS: VIMPAT PO SCH ×2 (10:05→22:27)
[2018-11-27] MEDS: ASPIRIN PO SCH (10:05)
[2018-11-27] MEDS: SEROQUEL PO SCH ×2 (10:05→22:27)
--- NOTE | 2018-11-27 12:02 | PROGRESS NOTE ---
DATE: 11/27/2018 SUBJECTIVE: The patient has no complaints. OBJECTIVE: Temperature is 97.8, pulse 75, respiratory rate 18, blood pressure 140s. Blood sugars are stable at 150s to 219. The patient is stable. She is in no apparent distress. Physical exam is unchanged. ASSESSMENT: 1. Escherichia coli bacteremia, extended spectrum beta lactamase positive. 2. Extended spectrum beta lactamase positive urinary tract infection. 3. Bilateral pneumonia, presumed from Escherichia coli. 4. Diabetes. 5. Failure to thrive. 6. Do not resuscitate. PLAN: We will continue the patient's antibiotics, continue Merrem for a total 14-day course. We need to recheck her blood culture to ensure that it is negative as well as urine culture before stopping her antibiotics. Further orders as needed. cc: Ricky Daley MD
[2018-11-27] MEDS: LIPITOR PO SCH (22:27)
[2018-11-27] MEDS: FLOMAX PO SCH (22:27)
[2018-11-28] MEDS: MERREM 1 GM in NS 50 ML IV SCH ×3 (06:31→22:10)
[2018-11-28] MEDS: SYNTHROID PO SCH (06:31)
[2018-11-28] MEDS: HUMULIN R (PARKWAY) SUBQ SCH ×4 (06:31→20:24)
[2018-11-28] MEDS: TOPROL XL PO SCH (09:05)
[2018-11-28] MEDS: LASIX PO SCH (09:05)
[2018-11-28] MEDS: LANTUS INSULIN SUBQ SCH (09:05)
[2018-11-28] MEDS: APRESOLINE PO SCH ×3 (09:05→16:42)
[2018-11-28] MEDS: VIMPAT PO SCH ×2 (09:05→20:23)
[2018-11-28] MEDS: SEROQUEL PO SCH ×2 (09:05→20:23)
[2018-11-28] MEDS: DIFLUCAN PO SCH (09:05)
[2018-11-28] MEDS: ASPIRIN PO SCH (09:05)
[2018-11-28] MEDS: NORVASC PO SCH (09:05)
[2018-11-28] MEDS: INSTA-GLUCOSE PO PRN (11:29)
[2018-11-28] MEDS: D50W SYRINGE IV PRN ×2 (12:24→16:30)
--- NOTE | 2018-11-28 14:56 | PROGRESS NOTE ---
DATE: 11/28/2018 SUBJECTIVE: Patient has no complaints. PHYSICAL: Vital Signs: Reviewed. Temperature 97.8 degrees, pulse 75, respiratory 18, BP 141/67. General: Patient is awake, alert, she is lying in the bed. She is quite vocal this morning. She is in no respiratory distress. CV: Regular rate. Chest: Clear. Abdomen: Soft. ASSESSMENT: 1. Escherichia coli bacteremia. 2. Escherichia coli urinary tract infection. 3. Escherichia coli pneumonia. 4. Adult failure to thrive. 5. Diabetes. 6. Do not resuscitate . PLAN: Will continue patient in the hospital. She is currently day 11 of Merrem. Her blood cultures are negative. Her blood sugars are stable between 95 and 245, blood pressure stable, will continue to follow. cc: Ricky Daley MD
[2018-11-28] MEDS: FLOMAX PO SCH (20:24)
[2018-11-28] MEDS: LIPITOR PO SCH (20:24)
[2018-11-29] MEDS: D50W SYRINGE IV PRN (02:01)
[2018-11-29] MEDS: MERREM 1 GM in NS 50 ML IV SCH ×4 (05:14→22:26)
[2018-11-29] MEDS: SYNTHROID PO SCH (06:08)
[2018-11-29] MEDS: HUMULIN R (PARKWAY) SUBQ SCH ×4 (06:09→20:51)
[2018-11-29] MEDS: TOPROL XL PO SCH (08:41)
[2018-11-29] MEDS: LASIX PO SCH (08:41)
[2018-11-29] MEDS: NORVASC PO SCH (08:41)
[2018-11-29] MEDS: SEROQUEL PO SCH ×2 (08:41→20:51)
[2018-11-29] MEDS: ASPIRIN PO SCH (08:41)
[2018-11-29] MEDS: APRESOLINE PO SCH ×3 (08:41→17:42)
[2018-11-29] MEDS: LANTUS INSULIN SUBQ SCH (08:41)
[2018-11-29] MEDS: VIMPAT PO SCH ×2 (08:41→20:51)
[2018-11-29] MEDS: DIFLUCAN PO SCH (08:41)
[2018-11-29] MEDS: FLOMAX PO SCH (20:50)
[2018-11-29] MEDS: LIPITOR PO SCH (20:51)
[2018-11-30] MEDS: MERREM 1 GM in NS 50 ML IV SCH ×2 (05:16→17:00)
[2018-11-30] MEDS: HUMULIN R (PARKWAY) SUBQ SCH ×4 (06:01→22:50)
[2018-11-30] MEDS: SYNTHROID PO SCH (06:04)
--- NOTE | 2018-11-30 08:18 | PROGRESS NOTE ---
DATE: 11/29/2018 SUBJECTIVE: Patient has no complaints. PHYSICAL EXAMINATION: Vital Signs: Reviewed. Temperature 97.6 degrees, pulse 75, respiratory rate 18, BP 141/67. General: Patient is awake, alert. She is pleasant. She is in no distress. She is calm this morning. Physical exam is unchanged. Cardiovascular: Regular rate. Chest: Relatively clear. No crackles. Abdomen: Soft. She is moving all extremities. ASSESSMENT: 1. Extended-spectrum beta-lactamase positive urinary tract infection. 2. Extended-spectrum beta-lactamase positive bacteremia. 3. Pneumonia, assumed extended-spectrum beta-lactamase positive with Escherichia coli as the cause. 4. Diabetes, type 2. 5. Adult failure to thrive. 6. Do Not Resuscitate. 7. Diabetes with hypoglycemia and hyperglycemia. Recent blood sugars 39 to 201. She is currently day 12 of Merrem. We will continue. Further orders as needed. cc: Ricky Daley MD
[2018-11-30] MEDS: LANTUS INSULIN SUBQ SCH (10:34)
[2018-11-30] MEDS: ASPIRIN PO SCH (10:39)
[2018-11-30] MEDS: VIMPAT PO SCH (10:40)
[2018-11-30] MEDS: APRESOLINE PO SCH ×2 (10:41→17:00)
[2018-11-30] MEDS: LASIX PO SCH (10:41)
[2018-11-30] MEDS: SEROQUEL PO SCH (10:42)
[2018-11-30] MEDS: NORVASC PO SCH (10:43)
[2018-11-30] MEDS: DIFLUCAN PO SCH (10:44)
[2018-11-30] MEDS: TOPROL XL PO SCH (10:44)
[2018-12-01] MEDS: APRESOLINE PO SCH ×4 (00:46→21:25)
[2018-12-01] MEDS: FLOMAX PO SCH ×2 (00:46→21:25)
[2018-12-01] MEDS: VIMPAT PO SCH ×3 (00:47→21:26)
[2018-12-01] MEDS: LIPITOR PO SCH ×2 (00:47→21:26)
[2018-12-01] MEDS: SEROQUEL PO SCH ×3 (00:47→21:26)
[2018-12-01] MEDS: MERREM 1 GM in NS 50 ML IV SCH ×3 (00:52→18:09)
[2018-12-01] MEDS: HUMULIN R (PARKWAY) SUBQ SCH ×4 (06:27→21:23)
[2018-12-01] MEDS: SYNTHROID PO SCH ×2 (06:27→09:43)
[2018-12-01] MEDS: ASPIRIN PO SCH (09:43)
[2018-12-01] MEDS: TOPROL XL PO SCH (09:44)
[2018-12-01] MEDS: LASIX PO SCH (09:44)
[2018-12-01] MEDS: NORVASC PO SCH (09:44)
[2018-12-01] MEDS: DIFLUCAN PO SCH (09:44)
[2018-12-01] MEDS: LANTUS INSULIN SUBQ SCH (11:52)
[2018-12-01] MEDS: CULTURELLE FOR KIDS PO SCH ×2 (12:07→21:25)
--- NOTE | 2018-12-01 20:45 | PROGRESS NOTE ---
DATE: 11/30/2018 SUBJECTIVE: The patient has no focal complaints. OBJECTIVE: Vital signs: Blood pressure is 169/66, heart rate of 100, respiratory rate 18, temperature 97.8, 93% on room air. Cardiovascular: Regular rate and rhythm. Pulmonary: Bilateral breath sounds. Clear to auscultation. Gastrointestinal: Soft, nontender, nondistended. Bowel sounds were positive. Extremities: No clubbing or cyanosis. Lymphatic examination: No peripheral edema. Neurologic examination: Nonfocal. LABORATORY DATA: Her white count: We do not have any new data today. Her last blood culture from the was negative. She is on Merrem, which she has been on Merrem since the . Her blood cultures were negative on the . So, this is day 7 today, I would assume out of 2 weeks. She had an ESBL bacteremia. ASSESSMENT: 1. Pneumonia. She is on antibiotics. According to this, she is on day 12 of Merrem. 2. Diabetes is stable. 3. Hypoglycemia/hyperglycemia. She is overall stable. 4. Failure to thrive. We are looking at permanent placement. She had pretty significant constipation previously, but I think that has since resolved. We will continue to monitor her closely. cc: Zachery Bill MD
[2018-12-02] MEDS: MERREM 1 GM in NS 50 ML IV SCH ×3 (00:45→17:06)
[2018-12-02] MEDS: HUMULIN R (PARKWAY) SUBQ SCH ×5 (06:34→20:14)
[2018-12-02] MEDS: SYNTHROID PO SCH (06:34)
[2018-12-02] MEDS: VIMPAT PO SCH ×2 (10:14→20:13)
[2018-12-02] MEDS: DIFLUCAN PO SCH (10:14)
[2018-12-02] MEDS: SEROQUEL PO SCH ×2 (10:14→20:13)
[2018-12-02] MEDS: LANTUS INSULIN SUBQ SCH (10:15)
[2018-12-02] MEDS: LASIX PO SCH (10:15)
[2018-12-02] MEDS: CULTURELLE FOR KIDS PO SCH ×3 (10:15→20:13)
[2018-12-02] MEDS: ASPIRIN PO SCH (10:15)
[2018-12-02] MEDS: NORVASC PO SCH (10:15)
[2018-12-02] MEDS: APRESOLINE PO SCH ×3 (10:15→20:13)
[2018-12-02] MEDS: TOPROL XL PO SCH (10:15)
[2018-12-02] MEDS: FLOMAX PO SCH (20:13)
[2018-12-02] MEDS: LIPITOR PO SCH (20:14)
[2018-12-03] MEDS: D50W SYRINGE IV PRN (01:52)
[2018-12-03] MEDS: MERREM 1 GM in NS 50 ML IV SCH ×3 (01:56→16:45)
[2018-12-03] MEDS: HUMULIN R (PARKWAY) SUBQ SCH ×4 (06:58→21:23)
[2018-12-03] MEDS: SYNTHROID PO SCH (06:59)
[2018-12-03] MEDS: TOPROL XL PO SCH (10:01)
[2018-12-03] MEDS: LANTUS INSULIN SUBQ SCH (10:01)
[2018-12-03] MEDS: VIMPAT PO SCH ×2 (10:02→21:07)
[2018-12-03] MEDS: LASIX PO SCH (10:02)
[2018-12-03] MEDS: APRESOLINE PO SCH ×3 (10:02→16:45)
[2018-12-03] MEDS: SEROQUEL PO SCH ×2 (10:02→21:07)
[2018-12-03] MEDS: DIFLUCAN PO SCH (10:02)
[2018-12-03] MEDS: ASPIRIN PO SCH (10:02)
[2018-12-03] MEDS: CULTURELLE FOR KIDS PO SCH ×3 (10:02→16:45)
[2018-12-03] MEDS: NORVASC PO SCH (10:03)
--- NOTE | 2018-12-03 16:19 | PROGRESS NOTE ---
DATE: 12/01/2018 SUBJECTIVE: Patient has no major complaints. OBJECTIVE: Vital signs: Blood pressure is 174/73, heart rate 79, respiratory rate 18, temperature 98.3 degrees, 99% on 2 L. Cardiovascular: Regular rate and rhythm. Pulmonary: Bilateral breath sounds. Clear to auscultation. GI: Soft, nontender, nondistended. Bowel sounds are positive. LABORATORY DATA: Sugar 312. PROBLEM LIST: 1. Extended spectrum beta lactamase urinary tract infection with bacteremia. She is on Merrem and seems to be doing okay, previously described as day 12. I am going to say it is day 8 based on her negative blood cultures, so we will treat for 14 days total. 2. Pneumonia. Again, she is on as much pulmonary toilet as we can achieve. 3. Type 2 diabetes. Continue treatment. DISPOSITION: We are still waiting on long-term placement, not sure where we are with that. We will continue to follow closely. cc: Zachery Bill MD
--- NOTE | 2018-12-03 18:41 | PROGRESS NOTE ---
DATE: 12/03/2018 SUBJECTIVE: Patient has no major complaints. She is still very agitated. OBJECTIVE: Vital Signs: Blood pressure is 134/63, heart rate 79, respiratory rate 14, temperature 97.6 degrees, satting 99% on room air. Cardiovascular: Regular rate and rhythm. Pulmonary: Bilateral breath sounds. Clear to auscultation. GI: Soft, nontender, nondistended. Bowel sounds are positive. PROBLEM LIST: 1. Extended spectrum beta lactamase urinary tract infection. She is on Merrem. Her blood cultures are negative as of the ; I think she is on day 10. 2. Diabetes is stable. Continue to monitor. 3. Dementia. We have increased her Seroquel. Hopefully this will help her get a little bit less agitated. We will continue to monitor. cc: Zachery iBll MD
[2018-12-03] MEDS: FLOMAX PO SCH (21:08)
[2018-12-03] MEDS: LIPITOR PO SCH (21:08)
[2018-12-04] MEDS: MERREM 1 GM in NS 50 ML IV SCH ×3 (02:53→16:50)
[2018-12-04] MEDS: HUMULIN R (PARKWAY) SUBQ SCH ×3 (07:01→16:48)
[2018-12-04] MEDS: SYNTHROID PO SCH (07:01)
[2018-12-04] MEDS: ASPIRIN PO SCH (08:18)
[2018-12-04] MEDS: SEROQUEL PO SCH ×2 (08:18→19:33)
[2018-12-04] MEDS: TOPROL XL PO SCH (08:18)
[2018-12-04] MEDS: LASIX PO SCH (08:18)
[2018-12-04] MEDS: CULTURELLE FOR KIDS PO SCH ×3 (08:18→16:43)
[2018-12-04] MEDS: APRESOLINE PO SCH ×3 (08:18→16:43)
[2018-12-04] MEDS: VIMPAT PO SCH ×2 (08:18→19:33)
[2018-12-04] MEDS: DIFLUCAN PO SCH (08:19)
[2018-12-04] MEDS: NORVASC PO SCH (08:19)
[2018-12-04] MEDS: LANTUS INSULIN SUBQ SCH (08:24)
--- NOTE | 2018-12-04 18:32 | PROGRESS NOTE ---
DATE: 12/04/2018 SUBJECTIVE: She is more reasonable. She is not as agitated as she has been for the last several days. OBJECTIVE: Blood pressure 144/65, heart rate of 83, respiratory rate of 24, temperature 97.8 degrees.Cardiovascular: Regular rate and rhythm. Pulmonary: Bilateral breath sounds, clear to auscultation. GI: Soft, nontender, nondistended. Bowel sounds are positive. LABORATORY DATA: Sugars have been under decent control. ASSESSMENT AND PLAN: Problem list: 1. Extended-spectrum beta-lactamase Escherichia coli urinary tract infection and bacteremia. She is on Merrem day 11. We will continue to follow. 2. Type 2 diabetes. Continue to monitor blood sugars. 3. Dementia. She is on Seroquel. Continue to monitor closely. 4. Disposition: Pending issues for long-term placement. cc: Zachery Bill MD
[2018-12-04] MEDS: TYLENOL PO PRN (19:33)
[2018-12-04] MEDS: FLOMAX PO SCH (19:34)
[2018-12-04] MEDS: LIPITOR PO SCH (19:34)
[2018-12-05] MEDS: FLOMAX PO SCH ×2 (00:20→21:08)
[2018-12-05] MEDS: HUMULIN R (PARKWAY) SUBQ SCH ×5 (00:20→21:09)
[2018-12-05] MEDS: LIPITOR PO SCH ×2 (00:20→21:08)
[2018-12-05] MEDS: VIMPAT PO SCH ×3 (00:21→21:08)
[2018-12-05] MEDS: SEROQUEL PO SCH ×3 (00:21→21:08)
[2018-12-05] MEDS: MERREM 1 GM in NS 50 ML IV SCH ×3 (00:22→17:35)
[2018-12-05] MEDS: SYNTHROID PO SCH (06:02)
[2018-12-05] MEDS: CULTURELLE FOR KIDS PO SCH ×4 (08:37→17:35)
[2018-12-05] MEDS: LASIX PO SCH (08:37)
[2018-12-05] MEDS: TOPROL XL PO SCH (08:37)
[2018-12-05] MEDS: ASPIRIN PO SCH (08:37)
[2018-12-05] MEDS: LANTUS INSULIN SUBQ SCH (08:37)
[2018-12-05] MEDS: NORVASC PO SCH (08:37)
[2018-12-05] MEDS: DIFLUCAN PO SCH (08:37)
[2018-12-05] MEDS: APRESOLINE PO SCH ×4 (08:37→17:35)
--- NOTE | 2018-12-05 18:50 | PROGRESS NOTE ---
DATE: 12/05/2018 SUBJECTIVE: Patient has no major complaints. OBJECTIVE: Vital Signs: Blood pressure is 157/74, heart rate 75, respiratory rate 18, temperature 97.5, 93% on room air. Cardiovascular: Regular rate and rhythm. Pulmonary: Bilateral breath sounds. Clear to auscultation. GI: Soft, nontender, nondistended. Bowel sounds are positive. LABS: No new lab data. Sugars actually good for her 190s-200s. ASSESSMENT AND PLAN: 1. ESBL E coli urinary tract infection bacteremia. She is on Merrem day 12. We will continue that based on her negative blood cultures, which were done on the , so I am counting that as day 1. 2. Type 2 diabetes is stable. 3. Dementia. She is on a higher dose of Seroquel but stable. DISPOSITION: Still waiting for long-term placement. cc: Zahcery Bill MD
[2018-12-06] MEDS: MERREM 1 GM in NS 50 ML IV SCH ×3 (00:45→16:14)
[2018-12-06] MEDS: SYNTHROID PO SCH (06:17)
[2018-12-06] MEDS: HUMULIN R (PARKWAY) SUBQ SCH ×4 (06:20→20:02)
[2018-12-06] MEDS: DIFLUCAN PO SCH (09:13)
[2018-12-06] MEDS: ASPIRIN PO SCH (09:14)
[2018-12-06] MEDS: SEROQUEL PO SCH ×2 (09:14→20:03)
[2018-12-06] MEDS: CULTURELLE FOR KIDS PO SCH ×3 (09:14→16:14)
[2018-12-06] MEDS: APRESOLINE PO SCH ×3 (09:14→16:14)
[2018-12-06] MEDS: VIMPAT PO SCH ×2 (09:15→20:03)
[2018-12-06] MEDS: LASIX PO SCH (09:15)
[2018-12-06] MEDS: LANTUS INSULIN SUBQ SCH (09:16)
[2018-12-06] MEDS: TOPROL XL PO SCH (09:17)
[2018-12-06] MEDS: NORVASC PO SCH (09:17)
[2018-12-06] MEDS: FLOMAX PO SCH (20:03)
[2018-12-06] MEDS: LIPITOR PO SCH (20:03)
[2018-12-07] MEDS: MERREM 1 GM in NS 50 ML IV SCH ×3 (00:42→16:44)
[2018-12-07] MEDS: SYNTHROID PO SCH (06:11)
[2018-12-07] MEDS: HUMULIN R (PARKWAY) SUBQ SCH ×4 (06:11→22:09)
--- NOTE | 2018-12-07 08:16 | PROGRESS NOTE ---
DATE: 12/06/2018 SUBJECTIVE: The patient is asleep. No major complaints. OBJECTIVE: Vital signs: Blood pressure 137/57, heart rate 70, respiratory rate 18, temperature 97.6 degrees, 96% on room air. Cardiovascular: Regular rate and rhythm. Pulmonary: Bilateral breath sounds. Clear to auscultation. GI: Soft, nontender, nondistended. Bowel sounds are positive. LABORATORY DATA: No new data today. PROBLEM LIST: 1. Extended spectrum beta lactamase Escherichia coli urinary tract infection and bacteremia. She is on Merrem, day 13. One more day and then she should be able to get off that. 2. Diabetes. So far appears to be stable. DISPOSITION: I anticipate discharge not any time soon. We are still waiting on long-term placement. cc: Zachery Bill MD
[2018-12-07] MEDS: CULTURELLE FOR KIDS PO SCH ×3 (08:57→16:44)
[2018-12-07] MEDS: VIMPAT PO SCH ×2 (08:58→22:08)
[2018-12-07] MEDS: APRESOLINE PO SCH ×3 (08:59→16:44)
[2018-12-07] MEDS: TOPROL XL PO SCH (08:59)
[2018-12-07] MEDS: ASPIRIN PO SCH (08:59)
[2018-12-07] MEDS: LASIX PO SCH (09:00)
[2018-12-07] MEDS: NORVASC PO SCH (09:00)
[2018-12-07] MEDS: SEROQUEL PO SCH ×2 (09:00→22:09)
[2018-12-07] MEDS: DIFLUCAN PO SCH (09:02)
[2018-12-07] MEDS: LANTUS INSULIN SUBQ SCH (09:16)
[2018-12-07] MEDS: LIPITOR PO SCH (22:08)
[2018-12-07] MEDS: FLOMAX PO SCH (22:09)
[2018-12-08] MEDS: MERREM 1 GM in NS 50 ML IV SCH ×3 (00:05→17:45)
--- NOTE | 2018-12-08 04:58 | PROGRESS NOTE ---
DATE: 12/07/2018 SUBJECTIVE: Patient has no new complaints. PHYSICAL EXAMINATION: Vital Signs: Reviewed. Temperature 97.4 degrees, pulse 75, respiratory rate 18, and BP 119/48. General: Patient is awake. She is in no distress. HEENT: Normocephalic. Neck: Supple. Cardiovascular: Regular rate. Chest: Clear. Abdomen: Soft. ASSESSMENT: 1. ESBL positive E. Coli urinary tract infection. 2. ESBL positive bacteremia. 3. Pneumonia likely secondary to ESBL E. Coli as well. 4. Type 2 diabetes. 5. Dementia. 6. DNR. PLAN: Currently, she is on day 19 of Merrem. We will continue this for 21 days. Blood sugars are controlled currently. cc: Ricky Daley MD
[2018-12-08] MEDS: HUMULIN R (PARKWAY) SUBQ SCH ×4 (06:10→22:30)
[2018-12-08] MEDS: SYNTHROID PO SCH (06:10)
[2018-12-08] MEDS: TOPROL XL PO SCH (09:52)
[2018-12-08] MEDS: NORVASC PO SCH (09:52)
[2018-12-08] MEDS: VIMPAT PO SCH ×2 (09:52→22:30)
[2018-12-08] MEDS: ASPIRIN PO SCH (09:52)
[2018-12-08] MEDS: CULTURELLE FOR KIDS PO SCH ×3 (09:52→17:40)
[2018-12-08] MEDS: DIFLUCAN PO SCH (09:52)
[2018-12-08] MEDS: SEROQUEL PO SCH ×2 (09:53→22:30)
[2018-12-08] MEDS: LASIX PO SCH (09:54)
[2018-12-08] MEDS: APRESOLINE PO SCH ×3 (09:54→17:40)
[2018-12-08] MEDS: LANTUS INSULIN SUBQ SCH (09:54)
[2018-12-08] MEDS: FLOMAX PO SCH (22:30)
[2018-12-08] MEDS: LIPITOR PO SCH (22:30)
--- NOTE | 2018-12-08 23:36 | PROGRESS NOTE ---
DATE: 12/08/2018 SUBJECTIVE: Patient with no complaints. OBJECTIVE: Vital Signs: Reviewed and unchanged. Temperature 97 degrees, pulse 70, respiratory 18, BP 124/65. General: Patient is awake, she is in no distress. HEENT: Normocephalic. Neck: Supple. Cardiovascular: Regular rate. Chest: Clear. Abdomen: Soft. ASSESSMENT: 1. ESBL positive Escherichia coli urinary tract infection. 2. ESBL positive bacteremia. 3. Diabetes. 4. Dementia. PLAN: The patient currently is on day 20 of 21 days of Merrem. We will continue this today and stop after tomorrow's dose. We will then recheck cultures again to prove they are continuing to be negative. cc: Ricky Daley MD
[2018-12-09] MEDS: MERREM 1 GM in NS 50 ML IV SCH ×5 (00:40→18:39)
[2018-12-09] MEDS: HUMULIN R (PARKWAY) SUBQ SCH ×4 (06:01→22:22)
[2018-12-09] MEDS: SYNTHROID PO SCH (06:15)
[2018-12-09] MEDS: VIMPAT PO SCH ×2 (08:50→22:23)
[2018-12-09] MEDS: CULTURELLE FOR KIDS PO SCH ×3 (08:50→18:01)
[2018-12-09] MEDS: DIFLUCAN PO SCH (08:50)
[2018-12-09] MEDS: SEROQUEL PO SCH ×2 (08:50→22:22)
[2018-12-09] MEDS: APRESOLINE PO SCH ×3 (08:51→18:01)
[2018-12-09] MEDS: ASPIRIN PO SCH (08:51)
[2018-12-09] MEDS: NORVASC PO SCH (08:51)
[2018-12-09] MEDS: LASIX PO SCH (08:51)
[2018-12-09] MEDS: TOPROL XL PO SCH (08:51)
[2018-12-09] MEDS: LANTUS INSULIN SUBQ SCH (09:43)
[2018-12-09] MEDS: D10W 500 ML IV SCH (17:45)
[2018-12-09 18:30] LABS: HEMATOCRIT 30.2 % (37.0-47.0); HEMOGLOBIN 9.6 g/dL (12.0-16.0); MCH 24.9 PG (27-31); MCHC 31.8 g/dL (33-37); MCV 78.4 FL (81-99); RBC 3.85 XMIL (4.2-5.4); RDW 19.8 % (11.5-14.5); WBC 5.72 X1000 (4.8-10.8)
[2018-12-09 18:48] LABS: AGAP 11; ALBUMIN 3.6 g/dL (3.5-5.0); ALKALINE PHOSPHATASE 128 U/L (32-104); BUN 14 mg/dL (8-22); CALCIUM 9.6 mg/dL (8.8-10.2); CHLORIDE 102 mmol/L (98-107); COSMO 285; CREATININE 0.7 mg/dL (0.5-0.9); ESTIMATED GFR > 60; GLUCOSE 91 mg/dL (70-104); GOT 11 U/L (10-30); GPT 10 U/L (10-36); MAGNESIUM 2.2 mg/dL (1.5-2.7); POTASSIUM 3.5 mmol/L (3.5-5.1); SODIUM 143 mmol/L (136-145); TCO2 30 mmol/L (25-35); TOTAL PROTEIN 7.3 g/dL (6.3-8.3)
[2018-12-09] MEDS: LIPITOR PO SCH (22:22)
[2018-12-09] MEDS: FLOMAX PO SCH (22:22)
[2018-12-10] MEDS: D10W 500 ML IV SCH (03:00)
--- NOTE | 2018-12-10 03:34 | PROGRESS NOTE ---
DATE: 12/08/2018 SUBJECTIVE: Patient is having low blood sugars. OBJECTIVE: Vital Signs: Reviewed. General: She is awake, alert. She is in no distress when her blood sugars are elevated. Physical exam is otherwise unchanged. PLAN: She has been on Merrem for day 21. We will stop it and Diflucan. We will stop her blood sugar medication, currently Lantus, as she is having blood sugars down in the 40s and 50s. cc: Ricky Daley MD
[2018-12-10] MEDS: HUMULIN R (PARKWAY) SUBQ SCH ×4 (06:09→21:40)
[2018-12-10] MEDS: SYNTHROID PO SCH (06:10)
[2018-12-10] MEDS: APRESOLINE PO SCH ×3 (09:30→17:00)
[2018-12-10] MEDS: NORVASC PO SCH (09:31)
[2018-12-10] MEDS: SEROQUEL PO SCH ×2 (09:31→21:40)
[2018-12-10] MEDS: ASPIRIN PO SCH (09:32)
[2018-12-10] MEDS: VIMPAT PO SCH ×2 (09:32→21:41)
[2018-12-10] MEDS: CULTURELLE FOR KIDS PO SCH ×3 (09:32→17:00)
[2018-12-10] MEDS: LASIX PO SCH (09:32)
[2018-12-10] MEDS: TOPROL XL PO SCH (09:33)
--- NOTE | 2018-12-10 19:53 | PROGRESS NOTE ---
DATE: 12/10/2018 SUBJECTIVE: Patient without complaints. PHYSICAL EXAMINATION: Vital Signs: Reviewed. Temperature 97.6, pulse 71, respiratory rate 18, BP 151/57. General: The patient currently is in no distress. She is quiet, soft. Physical exam is unchanged. ASSESSMENT: 1. Diabetes. Her blood sugars have actually dropped again yesterday into the 50s. We held her Lantus yesterday. We will decrease 8 units today as opposed to 15. She has been getting for the past month or 2. Unfortunately, this happens frequently. She simply refuses to eat. 2. ESBL E coli urinary tract infection, bacteremia and pneumonia. She has finished 21 days of Merrem. We will stop this as well as her Diflucan. 3. Dementia. PLAN: Continue to treat symptomatically until she is able to transition to long-term care. cc: Ricky Daley MD
[2018-12-10] MEDS: LIPITOR PO SCH (21:40)
[2018-12-10] MEDS: FLOMAX PO SCH (21:40)
[2018-12-11] MEDS: SYNTHROID PO SCH (06:25)
[2018-12-11] MEDS: HUMULIN R (PARKWAY) SUBQ SCH ×4 (06:25→20:23)
[2018-12-11] MEDS: SEROQUEL PO SCH ×2 (08:56→20:23)
[2018-12-11] MEDS: ASPIRIN PO SCH (08:57)
[2018-12-11] MEDS: NORVASC PO SCH (08:57)
[2018-12-11] MEDS: VIMPAT PO SCH ×2 (08:57→20:23)
[2018-12-11] MEDS: APRESOLINE PO SCH ×3 (08:57→17:47)
[2018-12-11] MEDS: LASIX PO SCH (08:57)
[2018-12-11] MEDS: CULTURELLE FOR KIDS PO SCH ×3 (08:57→17:47)
[2018-12-11] MEDS: TOPROL XL PO SCH (09:00)
[2018-12-11] MEDS: FLOMAX PO SCH (20:23)
[2018-12-11] MEDS: LIPITOR PO SCH (20:23)
--- NOTE | 2018-12-12 05:16 | PROGRESS NOTE ---
DATE: 12/11/2018 SUBJECTIVE: Patient without any new complaints. PHYSICAL EXAMINATION: Vital Signs: Stable and unchanged. Blood pressures are elevated at 193 to 324. PLAN: Although we did decrease her Lantus, we have started slowly increasing. She is currently back up to 10 mg. We will continue to follow and further orders as needed. cc: Ricky Daley MD
[2018-12-12] MEDS: HUMULIN R (PARKWAY) SUBQ SCH ×4 (06:13→22:29)
[2018-12-12] MEDS: SYNTHROID PO SCH (06:13)
[2018-12-12] MEDS: SEROQUEL PO SCH ×2 (10:09→23:35)
[2018-12-12] MEDS: APRESOLINE PO SCH ×3 (10:09→16:39)
[2018-12-12] MEDS: VIMPAT PO SCH ×2 (10:10→23:35)
[2018-12-12] MEDS: ASPIRIN PO SCH (10:10)
[2018-12-12] MEDS: NORVASC PO SCH (10:10)
[2018-12-12] MEDS: TOPROL XL PO SCH (10:10)
[2018-12-12] MEDS: CULTURELLE FOR KIDS PO SCH ×3 (10:10→16:39)
[2018-12-12] MEDS: LASIX PO SCH (10:10)
--- NOTE | 2018-12-12 12:50 | PROGRESS NOTE ---
DATE: 12/12/2018 SUBJECTIVE: The patient with no complaints. PHYSICAL EXAMINATION: Vital signs reviewed and stable. Physical exam is unchanged. DIAGNOSTIC STUDIES: Blood sugars 97 to 184. ASSESSMENT: 1. Diabetes. The patient frequently has issues with hypoglycemia. Her blood sugars are actually lower than her average at 97 to 184. We had restarted her Lantus and actually increased to 10 units daily. We are going to decrease this back to 6 units to attempt to prevent significant hypoglycemia which she unfortunately is quite prone to do when she refuses to eat. 2. Recent extended-spectrum beta-lactamase positive Escherichia coli urinary tract infection and bacteremia. Both urine and blood cultures are negative thus far, and she is actually off of Merrem for the 3rd day. cc: Ricky Daley MD
[2018-12-12] MEDS: FLOMAX PO SCH (23:36)
[2018-12-12] MEDS: LIPITOR PO SCH (23:36)
[2018-12-13] MEDS: HUMULIN R (PARKWAY) SUBQ SCH ×4 (07:30→21:42)
[2018-12-13] MEDS: SYNTHROID PO SCH ×2 (07:31→10:57)
[2018-12-13] MEDS: ASPIRIN PO SCH (10:56)
[2018-12-13] MEDS: SEROQUEL PO SCH ×2 (10:56→21:45)
[2018-12-13] MEDS: LASIX PO SCH (10:57)
[2018-12-13] MEDS: VIMPAT PO SCH ×2 (10:57→21:45)
[2018-12-13] MEDS: TOPROL XL PO SCH (10:57)
[2018-12-13] MEDS: NORVASC PO SCH (10:57)
[2018-12-13] MEDS: CULTURELLE FOR KIDS PO SCH ×3 (10:57→18:25)
[2018-12-13] MEDS: APRESOLINE PO SCH ×3 (10:57→18:25)
[2018-12-13] MEDS: MOTRIN PO PRN (18:25)
[2018-12-13] MEDS: LIPITOR PO SCH (21:45)
[2018-12-13] MEDS: FLOMAX PO SCH (21:45)
--- NOTE | 2018-12-14 05:22 | PROGRESS NOTE ---
DATE: 12/13/2018 SUBJECTIVE: Patient has no new complaints. She actually ate breakfast very well this morning. OBJECTIVE: Vital signs reviewed and stable. Her physical exam was effectively unchanged. ASSESSMENT AND PLAN: 1. Blood sugars are 195 to 276. We had decreased her Lantus to 6 units yesterday. We will increase this back to 8 units today and follow. Unfortunately, her blood sugars are very erratic; it depends on whether she decides to eat some or completely declines eating at all. Unfortunately this usually happens several hours after she has already received her Lantus. We may need to consider changing her Lantus to twice daily, and if she does not eat, just simply hold her night dose. 2. Extended-spectrum beta-lactamase Escherichia coli bacteremia, resolved. Off antibiotics. Recent culture negative. 3. Dementia. 4. Hypothyroidism. cc: Ricky Daley MD
[2018-12-14] MEDS: HUMULIN R (PARKWAY) SUBQ SCH ×4 (06:13→21:23)
[2018-12-14] MEDS: SYNTHROID PO SCH (06:13)
[2018-12-14] MEDS: TOPROL XL PO SCH (09:17)
[2018-12-14] MEDS: NORVASC PO SCH (09:17)
[2018-12-14] MEDS: VIMPAT PO SCH ×2 (09:17→20:01)
[2018-12-14] MEDS: SEROQUEL PO SCH ×2 (09:17→20:01)
[2018-12-14] MEDS: ASPIRIN PO SCH (09:18)
[2018-12-14] MEDS: APRESOLINE PO SCH ×3 (09:18→16:46)
[2018-12-14] MEDS: LASIX PO SCH (09:18)
[2018-12-14] MEDS: LANTUS INSULIN SUBQ SCH (09:18)
[2018-12-14] MEDS: CULTURELLE FOR KIDS PO SCH ×3 (09:18→16:46)
--- NOTE | 2018-12-14 15:31 | PROGRESS NOTE ---
DATE: 12/14/2018 SUBJECTIVE: Patient resting quietly in bed. No complaints voiced. OBJECTIVE: Vital signs: Temp 97.8 degrees, pulse 85, respirations 20, blood pressure 145/65, saturating 98% on room air. HEENT: Normocephalic, atraumatic. Normal ENT inspection. Oropharynx and nares are clear. Eyes: Pupils are equal, round, reactive to light and accommodation. Extraocular movements are intact. Neck: Normal inspection. Normal range of motion. Lungs: Clear to auscultation bilaterally with equal lung expansion and chest wall movement. Heart: Regular rate and rhythm. No murmurs, rubs, or gallops. Abdomen: Soft, nontender, nondistended. Bowel sounds are present x4 quadrants. Musculoskeletal: Able move extremities well. There is 5/5 strength x4 extremities. Neurological: Cranial nerves 2-12 appear grossly intact. ASSESSMENT: 1. Diabetes. 2. Dementia. 3. Hypothyroidism. PLAN: Will continue her diabetes regimen. Blood sugars today are ranging from 195 to 423 and blood sugars are erratic depending on when she decides to eat. Sometimes she completely declines to eat at all. This happened several hours after she had already received her Lantus. We will continue to monitor. Continue her other medication regimen. Will continue to await her social placement with R involvement. Dictated by EDDIE Vicente for Onur Parada MD cc: EDDIE Vicente MD
[2018-12-14] MEDS: FLOMAX PO SCH (20:01)
[2018-12-14] MEDS: LIPITOR PO SCH (20:01)
[2018-12-15] MEDS: SYNTHROID PO SCH (06:01)
[2018-12-15] MEDS: HUMULIN R (PARKWAY) SUBQ SCH ×4 (06:01→21:46)
[2018-12-15] MEDS: TOPROL XL PO SCH (10:44)
[2018-12-15] MEDS: VIMPAT PO SCH ×2 (10:44→21:45)
[2018-12-15] MEDS: APRESOLINE PO SCH ×3 (10:44→17:06)
[2018-12-15] MEDS: LANTUS INSULIN SUBQ SCH (10:45)
[2018-12-15] MEDS: ASPIRIN PO SCH (10:45)
[2018-12-15] MEDS: SEROQUEL PO SCH ×2 (10:45→21:45)
[2018-12-15] MEDS: CULTURELLE FOR KIDS PO SCH ×3 (10:45→17:06)
[2018-12-15] MEDS: NORVASC PO SCH (10:45)
[2018-12-15] MEDS: LASIX PO SCH (10:46)
--- NOTE | 2018-12-15 11:07 | PROGRESS NOTE ---
DATE: 12/15/2018 SUBJECTIVE: As per nursing staff, patient has been okay. Upon my examination, she is resting quietly in bed. No complaints noted. OBJECTIVE: Vital Signs: Temperature 98.1 degrees, heart rate 80, respiratory rate 18, blood pressure 166/72, O2 saturation 95% on room air. General: This is a chronically ill-appearing, 83-year-old, female, lying in bed, in no acute distress. Cardiovascular: S1, S2 heard. No murmurs, gallops, or rubs. Regular rate and rhythm. Respiratory: Minimal coarse breath sounds noted in both pulmonary bases. Patient not using any accessory muscles or having work of breathing. Abdomen: Soft. Nontender to palpation. Bowel sounds present. No organomegaly. Neurological: Patient is sleepy. Moves 4 extremities spontaneously. ASSESSMENT: 1. Advanced dementia. 2. Diabetes mellitus type 2. 3. Hypothyroidism. 4. Physical deconditioning. PLAN: At this point, the patient is medically stable. We continue to await disposition for this patient. cc: Onur Parada MD
[2018-12-15] MEDS: FLOMAX PO SCH (21:45)
[2018-12-15] MEDS: LIPITOR PO SCH (21:45)
[2018-12-16] MEDS: SYNTHROID PO SCH (06:13)
[2018-12-16] MEDS: HUMULIN R (PARKWAY) SUBQ SCH ×4 (06:13→21:35)
[2018-12-16] MEDS: VIMPAT PO SCH ×2 (10:16→21:35)
[2018-12-16] MEDS: ASPIRIN PO SCH (10:16)
[2018-12-16] MEDS: APRESOLINE PO SCH ×3 (10:16→16:57)
[2018-12-16] MEDS: SEROQUEL PO SCH ×2 (10:16→21:35)
[2018-12-16] MEDS: CULTURELLE FOR KIDS PO SCH ×3 (10:17→16:57)
[2018-12-16] MEDS: NORVASC PO SCH (10:17)
[2018-12-16] MEDS: LANTUS INSULIN SUBQ SCH (10:17)
[2018-12-16] MEDS: TOPROL XL PO SCH (10:17)
[2018-12-16] MEDS: LASIX PO SCH (10:17)
--- NOTE | 2018-12-16 12:59 | PROGRESS NOTE ---
DATE: 12/16/2018 SUBJECTIVE: The patient is nonverbal. No acute issues noted as per the nursing staff. OBJECTIVE: Vital Signs: Temperature 98.2 degrees, heart rate 82, respiratory rate 15, blood pressure 140/63, O2 saturation 93% on 2 L nasal cannula. General Examination: This is a chronically ill-appearing, 83-year-old, female lying in bed, in no acute distress. Cardiovascular Examination: S1 and S2 heard. No murmurs, gallops, or rubs. Regular rate and rhythm. Respiratory Examination: Minimal coarse breath sounds noted in both pulmonary bases. Patient is not using any accessory muscles or having work of breathing. Neurological Examination: The patient is sleepy but moves 4 extremities. The patient is nonverbal. ASSESSMENT AND PLAN: 1. Advanced dementia. 2. Diabetes mellitus type 2. 3. Hypothyroidism. 4. Physical deconditioning PLAN: At this point, we will continue with current medical management and continue to await disposition for this patient. cc: Onur Parada MD
[2018-12-16] MEDS: FLOMAX PO SCH (21:35)
[2018-12-16] MEDS: LIPITOR PO SCH (21:35)
[2018-12-17] MEDS: HUMULIN R (PARKWAY) SUBQ SCH ×4 (06:01→21:38)
[2018-12-17] MEDS: SYNTHROID PO SCH (06:04)
[2018-12-17] MEDS: SEROQUEL PO SCH ×2 (10:20→21:38)
[2018-12-17] MEDS: NORVASC PO SCH (10:20)
[2018-12-17] MEDS: TOPROL XL PO SCH (10:20)
[2018-12-17] MEDS: ASPIRIN PO SCH (10:20)
[2018-12-17] MEDS: LASIX PO SCH (10:21)
[2018-12-17] MEDS: CULTURELLE FOR KIDS PO SCH ×3 (10:21→16:38)
[2018-12-17] MEDS: VIMPAT PO SCH ×2 (10:21→21:37)
[2018-12-17] MEDS: APRESOLINE PO SCH ×3 (10:21→16:38)
--- NOTE | 2018-12-17 10:54 | PROGRESS NOTE ---
DATE: 12/17/2018 SUBJECTIVE: According to nursing staff who is at bedside, no acute issues noted. The patient continues to be nonverbal. Apparently, she has not slept very well last night. She is sleepy now. OBJECTIVE: Vital Signs: Temperature 97.5 degrees, heart rate 80, respiratory rate 18, blood pressure 153/63, and O2 saturation 100% on room air. general: This is a chronically-ill- appearing, 83-year-old, female lying in bed in no acute distress. Cardiovascular: S1, S2 heard. No murmurs, gallops, or rubs. Regular rate and rhythm. Respiratory: Coarse breath sounds noted in both pulmonary bases. The patient not using any accessory muscles or work of breathing. Abdomen: Soft. Nontender to palpation. Bowel sounds present. No organomegaly. Neurological: The patient is nonverbal. Moves 4 extremities spontaneously. ASSESSMENT AND PLAN: 1. Advanced dementia. 2. Diabetes mellitus type 2. 3. Hypothyroidism. 4. Physical deconditioning. PLAN: We will continue to monitor this patient closely while we await for placement for this patient. cc: Onur Parada MD MTDD
[2018-12-17] MEDS: LANTUS INSULIN SUBQ SCH (11:05)
[2018-12-17] MEDS: LIPITOR PO SCH (21:37)
[2018-12-17] MEDS: FLOMAX PO SCH (21:38)
[2018-12-18] MEDS: HUMULIN R (PARKWAY) SUBQ SCH ×5 (06:01→20:39)
[2018-12-18] MEDS: SYNTHROID PO SCH (06:28)
[2018-12-18] MEDS: NORVASC PO SCH (08:14)
[2018-12-18] MEDS: ASPIRIN PO SCH (08:14)
[2018-12-18] MEDS: VIMPAT PO SCH ×2 (08:14→20:39)
[2018-12-18] MEDS: LASIX PO SCH (08:14)
[2018-12-18] MEDS: CULTURELLE FOR KIDS PO SCH ×3 (08:14→16:36)
[2018-12-18] MEDS: LANTUS INSULIN SUBQ SCH (08:14)
[2018-12-18] MEDS: APRESOLINE PO SCH ×3 (08:14→16:36)
[2018-12-18] MEDS: TOPROL XL PO SCH (08:15)
[2018-12-18] MEDS: SEROQUEL PO SCH ×2 (08:15→20:39)
--- NOTE | 2018-12-18 12:25 | PROGRESS NOTE ---
DATE: 12/18/2018 SUBJECTIVE: No acute issues noted as per nursing staff overnight. Patient remains nonverbal, resting comfortable in the bed. OBJECTIVE: Vital Signs: Temperature 97.7 degrees, heart rate 75, respiratory rate 16, blood pressure 173/77, O2 saturation 99% on room air. General: This is a chronically ill-appearing, 83-year-old female, lying in bed, in no acute distress. Cardiovascular: S1, S2 heard. No murmurs, gallops, or rubs. Regular rate and rhythm. Respiratory: Coarse breath sounds noted in both pulmonary bases. Patient not using any accessory muscles or having work of breathing. Abdomen: Soft. Nontender to palpation. Bowel sounds present. No organomegaly. Neurological: Patient nonverbal. Moves 4 extremities spontaneously. ASSESSMENT: 1. Advanced dementia. 2. Diabetes mellitus type 2. 3. Hypothyroidism. 4. Physical deconditioning. PLAN: Continue to wait for placement for this patient. cc: Onur Parada MD
[2018-12-18] MEDS: FLOMAX PO SCH (20:38)
[2018-12-18] MEDS: LIPITOR PO SCH (20:39)
[2018-12-19] MEDS: SYNTHROID PO SCH (06:03)
[2018-12-19] MEDS: TOPROL XL PO SCH (08:23)
[2018-12-19] MEDS: ASPIRIN PO SCH (08:23)
[2018-12-19] MEDS: SEROQUEL PO SCH ×2 (08:23→20:44)
[2018-12-19] MEDS: LASIX PO SCH (08:23)
[2018-12-19] MEDS: NORVASC PO SCH (08:23)
[2018-12-19] MEDS: APRESOLINE PO SCH ×3 (08:23→16:22)
[2018-12-19] MEDS: CULTURELLE FOR KIDS PO SCH ×3 (08:24→16:22)
[2018-12-19] MEDS: LANTUS INSULIN SUBQ SCH (08:24)
[2018-12-19] MEDS: VIMPAT PO SCH ×2 (08:24→20:44)
[2018-12-19] MEDS: HUMULIN R (PARKWAY) SUBQ SCH ×2 (12:09→16:21)
--- NOTE | 2018-12-19 12:41 | PROGRESS NOTE ---
DATE: 12/19/2018 SUBJECTIVE: The patient mumbles some unintelligible words, but she said that she is having some eye pain. As per nursing staff, there are no acute issues noted. OBJECTIVE: Vital Signs: Temperature 97.7 degrees, heart rate 70 respiratory rate 18, blood pressure 136/70, O2 saturation 97% on room air. General Examination: This is a chronically ill- appearing, 83-year-old female, lying in bed in no acute distress. Cardiovascular exam: S1, S2 heard. No murmurs, gallops, or rubs. Regular rate and rhythm. Respiratory exam: Coarse breath sounds noted in both pulmonary bases. Patient not using any accessory muscles or having work of breathing. Abdomen: Soft, nontender to palpation. Bowel sounds present. No organomegaly. Neurological exam: Patient moves 4 extremities spontaneously. ASSESSMENT: 1. Advanced dementia. 2. Diabetes mellitus type 2. 3. Hypothyroidism. 4. Physical deconditioning. PLAN: At this point, patient is stable. We are continuing to wait for placement for this patient. cc: Onur Parada MD
[2018-12-19] MEDS: LIPITOR PO SCH (20:43)
[2018-12-19] MEDS: FLOMAX PO SCH (20:43)
[2018-12-20] MEDS: HUMULIN R (PARKWAY) SUBQ SCH ×5 (04:54→21:04)
[2018-12-20] MEDS: SYNTHROID PO SCH ×2 (06:11→08:08)
[2018-12-20] MEDS: SEROQUEL PO SCH ×2 (08:07→20:12)
[2018-12-20] MEDS: ASPIRIN PO SCH (08:07)
[2018-12-20] MEDS: NORVASC PO SCH (08:08)
[2018-12-20] MEDS: LASIX PO SCH (08:08)
[2018-12-20] MEDS: VIMPAT PO SCH ×2 (08:08→20:12)
[2018-12-20] MEDS: CULTURELLE FOR KIDS PO SCH ×3 (08:08→16:30)
[2018-12-20] MEDS: TOPROL XL PO SCH (08:08)
[2018-12-20] MEDS: APRESOLINE PO SCH ×3 (08:08→16:30)
[2018-12-20] MEDS: LANTUS INSULIN SUBQ SCH (08:58)
[2018-12-20] MEDS: FLOMAX PO SCH (20:12)
[2018-12-20] MEDS: LIPITOR PO SCH (20:12)
[2018-12-21] MEDS: SYNTHROID PO SCH ×2 (06:01→08:33)
[2018-12-21] MEDS: HUMULIN R (PARKWAY) SUBQ SCH ×4 (06:01→22:22)
[2018-12-21] MEDS: NORVASC PO SCH (08:32)
[2018-12-21] MEDS: ASPIRIN PO SCH (08:32)
[2018-12-21] MEDS: SEROQUEL PO SCH ×2 (08:32→22:17)
--- NOTE | 2018-12-21 08:32 | PROGRESS NOTE ---
DATE: 12/20/2018 SUBJECTIVE: The patient is not complaining of anything. Sometimes, she mumbles some unintelligible words. No acute issues noted per nursing staff overnight. OBJECTIVE: Vital Signs; Temperature 98.6, heart rate 74, respiratory rate 16, blood pressure 152/64, O2 saturation 97% on room air. General Examination: This is a chronically ill-appearing, 83-year-old, female lying in bed, in no acute distress. Cardiovascular Examination: S1 and S2 heard. No murmurs, gallops, or rubs. Regular rate and rhythm. Respiratory Examination: Minimal coarse breath sounds noted in both pulmonary bases. The patient is not using any accessory muscles or having work of breathing. Abdomen: Soft. Nontender to palpation. Bowel sounds present. No organomegaly. Neurological Examination: The patient moves four extremities. She is not oriented in place or time or person. ASSESSMENT AND PLAN: 1. Advanced dementia. 2. Diabetes mellitus type 2. 3. Hypothyroidism. 4. Physical deconditioning. 5. At this point, the patient continues to be stable and continues to wait for placement for this lady. cc: Onur Parada MD
[2018-12-21] MEDS: LANTUS INSULIN SUBQ SCH (08:33)
[2018-12-21] MEDS: TOPROL XL PO SCH (08:33)
[2018-12-21] MEDS: VIMPAT PO SCH ×2 (08:33→22:17)
[2018-12-21] MEDS: CULTURELLE FOR KIDS PO SCH ×3 (08:33→17:16)
[2018-12-21] MEDS: LASIX PO SCH (08:33)
[2018-12-21] MEDS: APRESOLINE PO SCH ×3 (08:33→17:16)
--- NOTE | 2018-12-21 13:10 | PROGRESS NOTE ---
DATE: 12/21/2018 SUBJECTIVE: The patient is somehow verbal, and she mumbles some unintelligible words, but no acute issues noted as per nursing staff overnight. OBJECTIVE: Vital Signs: Temperature 97.6 degrees, heart rate 66, respiratory rate 20, blood pressure 153/71, and O2 saturation 96% on room air. General: This is a chronically ill-appearing 83-year-old female lying in bed in no acute distress. Cardiovascular: S1, S2 heard. No murmurs, gallops, or rubs. Regular rate and rhythm. Respiratory: Minimal coarse breath sounds in both pulmonary bases. Patient not using any accessory muscles or having work of breathing. Neurological: Patient moves 4 extremities. She is not oriented in place, time, or person ASSESSMENT AND PLAN: 1. Advanced dementia. 2. Diabetes mellitus type 2. 3. Hypothyroidism. 4. Physical deconditioning. DISPOSITION: The patient is stable right now. We will continue to wait for placement for this patient. cc: Onur Parada MD
[2018-12-21] MEDS: FLOMAX PO SCH (22:17)
[2018-12-21] MEDS: LIPITOR PO SCH (22:17)
[2018-12-22] MEDS: HUMULIN R (PARKWAY) SUBQ SCH ×4 (06:46→20:31)
[2018-12-22] MEDS: SYNTHROID PO SCH (06:47)
[2018-12-22] MEDS: SEROQUEL PO SCH ×2 (09:03→20:19)
[2018-12-22] MEDS: TOPROL XL PO SCH (09:03)
[2018-12-22] MEDS: VIMPAT PO SCH ×2 (09:03→20:20)
[2018-12-22] MEDS: NORVASC PO SCH (09:03)
[2018-12-22] MEDS: LASIX PO SCH (09:03)
[2018-12-22] MEDS: ASPIRIN PO SCH (09:03)
[2018-12-22] MEDS: APRESOLINE PO SCH ×3 (09:04→16:58)
[2018-12-22] MEDS: CULTURELLE FOR KIDS PO SCH ×3 (09:04→16:58)
[2018-12-22] MEDS: LANTUS INSULIN SUBQ SCH (09:04)
--- NOTE | 2018-12-22 19:56 | PROGRESS NOTE ---
DATE: 12/22/2018 SUBJECTIVE: Patient with no complaints. OBJECTIVE: Vital Signs: Reviewed. Temperature 97.4 degrees, pulse 97, respiratory rate 18, BP 163/71. General: She is awake, alert. She is in no distress. She is lying in the bed. Physical exam is unchanged. ASSESSMENT: 1. Advanced dementia. 2. Type 2 diabetes. 3. Hypothyroidism. 4. Physical deconditioning. PLAN: We will continue patient in the hospital and await placement. cc: Ricky Daley MD
[2018-12-22] MEDS: LIPITOR PO SCH (20:19)
[2018-12-22] MEDS: FLOMAX PO SCH (20:19)
[2018-12-23] MEDS: SYNTHROID PO SCH (06:17)
[2018-12-23] MEDS: HUMULIN R (PARKWAY) SUBQ SCH ×4 (07:11→22:49)
[2018-12-23] MEDS: ASPIRIN PO SCH (08:50)
[2018-12-23] MEDS: APRESOLINE PO SCH ×3 (08:50→16:39)
[2018-12-23] MEDS: SEROQUEL PO SCH ×2 (08:50→22:14)
[2018-12-23] MEDS: NORVASC PO SCH (08:51)
[2018-12-23] MEDS: VIMPAT PO SCH ×2 (08:51→22:13)
[2018-12-23] MEDS: LASIX PO SCH (08:51)
[2018-12-23] MEDS: TOPROL XL PO SCH (08:51)
[2018-12-23] MEDS: CULTURELLE FOR KIDS PO SCH ×3 (09:30→16:39)
[2018-12-23] MEDS: LANTUS INSULIN SUBQ SCH (09:30)
[2018-12-23] MEDS: FLOMAX PO SCH (22:14)
[2018-12-23] MEDS: LIPITOR PO SCH (22:14)
--- NOTE | 2018-12-24 04:09 | PROGRESS NOTE ---
DATE: 12/23/2018 SUBJECTIVE: No complaints. PHYSICAL EXAMINATION: Vital Signs: Reviewed and stable. Physical exam is unchanged. PLAN: The patient will continue in the hospital until she can transition to long-term care. We will continue her blood sugar medications currently as she is 125 to 317. cc: Ricky Daley MD
[2018-12-24] MEDS: SYNTHROID PO SCH (06:16)
[2018-12-24] MEDS: HUMULIN R (PARKWAY) SUBQ SCH ×4 (06:22→20:35)
[2018-12-24] MEDS: SEROQUEL PO SCH ×2 (09:20→20:35)
[2018-12-24] MEDS: TOPROL XL PO SCH (09:21)
[2018-12-24] MEDS: LANTUS INSULIN SUBQ SCH (09:21)
[2018-12-24] MEDS: LASIX PO SCH (09:21)
[2018-12-24] MEDS: CULTURELLE FOR KIDS PO SCH ×3 (09:21→17:02)
[2018-12-24] MEDS: NORVASC PO SCH (09:21)
[2018-12-24] MEDS: APRESOLINE PO SCH ×3 (09:21→17:01)
[2018-12-24] MEDS: VIMPAT PO SCH ×2 (09:21→20:35)
[2018-12-24] MEDS: ASPIRIN PO SCH (09:21)
[2018-12-24] MEDS: LIPITOR PO SCH (20:35)
[2018-12-24] MEDS: FLOMAX PO SCH (20:35)
--- NOTE | 2018-12-24 21:11 | PROGRESS NOTE ---
DATE: 12/24/2018 SUBJECTIVE: No complaints. PHYSICAL EXAMINATION: Vital signs reviewed and stable. Physical exam is unchanged. PLAN: Patient will continue in the hospital. Blood sugars are stable in the mid 200 to 300s. Really cannot get better control as she frequently has low blood sugars in the 20s and 40s if her control gets better. Hopefully, she can transition to rehab at some point. cc: Ricky Daley MD
[2018-12-25] MEDS: SYNTHROID PO SCH (06:06)
[2018-12-25] MEDS: HUMULIN R (PARKWAY) SUBQ SCH ×4 (06:06→21:10)
[2018-12-25] MEDS: ASPIRIN PO SCH (08:48)
[2018-12-25] MEDS: VIMPAT PO SCH ×2 (08:49→21:11)
[2018-12-25] MEDS: CULTURELLE FOR KIDS PO SCH ×3 (08:49→18:26)
[2018-12-25] MEDS: APRESOLINE PO SCH ×3 (08:49→18:26)
[2018-12-25] MEDS: NORVASC PO SCH (08:49)
[2018-12-25] MEDS: LANTUS INSULIN SUBQ SCH (08:49)
[2018-12-25] MEDS: SEROQUEL PO SCH ×2 (08:49→21:11)
[2018-12-25] MEDS: LASIX PO SCH (08:49)
[2018-12-25] MEDS: TOPROL XL PO SCH (08:49)
[2018-12-25] MEDS: LIPITOR PO SCH (21:11)
[2018-12-25] MEDS: FLOMAX PO SCH (21:11)
[2018-12-26] MEDS: SYNTHROID PO SCH ×2 (06:16→10:26)
[2018-12-26] MEDS: HUMULIN R (PARKWAY) SUBQ SCH ×5 (06:16→21:04)
--- NOTE | 2018-12-26 09:06 | PROGRESS NOTE ---
DATE: 12/25/2018 SUBJECTIVE: Patient is without new complaints. Staff has no new complaints. PHYSICAL EXAMINATION: Vital Signs: Reviewed. She is afebrile. Blood pressure is stable. Blood sugars are elevated at 307 and 426. Physical exam is unchanged. She is awake, alert, lying in the bed. ASSESSMENT: 1. Advanced dementia. 2. Diabetes type 2. At this point we are going to increase her Lantus to 10 units and will follow. 3. Hypothyroidism. 4. Physical deconditioning. PLAN: Continue to await the opportunity to transfer her to long-term care. Will treat symptomatically. Further orders as needed. cc: Ricky Daley MD
[2018-12-26] MEDS: SEROQUEL PO SCH ×2 (10:25→21:03)
[2018-12-26] MEDS: APRESOLINE PO SCH ×3 (10:25→18:39)
[2018-12-26] MEDS: VIMPAT PO SCH ×2 (10:25→21:03)
[2018-12-26] MEDS: NORVASC PO SCH (10:25)
[2018-12-26] MEDS: TOPROL XL PO SCH (10:26)
[2018-12-26] MEDS: ASPIRIN PO SCH (10:26)
[2018-12-26] MEDS: LANTUS INSULIN SUBQ SCH (10:26)
[2018-12-26] MEDS: CULTURELLE FOR KIDS PO SCH ×3 (10:26→18:39)
[2018-12-26] MEDS: LASIX PO SCH (10:26)
--- NOTE | 2018-12-26 19:56 | PROGRESS NOTE ---
DATE: 12/26/2018 SUBJECTIVE: Patient without complaints. She did not eat very well yesterday. OBJECTIVE: Vital signs: Temperature 97.8, pulse 73, respiratory 18, BP 118/65. General: Patient is awake. She is in no distress. She is pleasant. She is lying flatly and calmly in the bed. Blood sugars are between 180 and 400. Physical exam is unchanged. ASSESSMENT: 1. Advanced dementia. 2. Do Not Resuscitate. 3. Hypothyroidism. 4. Physical deconditioning. 5. Social neglect. 6. Recent extended spectrum beta-lactamases septicemia. PLAN: Continue patient in the hospital. Continue symptomatic treatment. She currently has been off antibiotics for several weeks. Blood sugars have been stable. We will continue to await the opportunity for her to transition to long-term care. cc: Ricky Daley MD
[2018-12-26] MEDS: LIPITOR PO SCH (21:03)
[2018-12-26] MEDS: FLOMAX PO SCH (21:03)
[2018-12-27] MEDS: SYNTHROID PO SCH (06:05)
[2018-12-27] MEDS: HUMULIN R (PARKWAY) SUBQ SCH ×4 (06:05→21:13)
[2018-12-27] MEDS: TOPROL XL PO SCH (09:20)
[2018-12-27] MEDS: LANTUS INSULIN SUBQ SCH (09:20)
[2018-12-27] MEDS: LASIX PO SCH (09:20)
[2018-12-27] MEDS: NORVASC PO SCH (09:20)
[2018-12-27] MEDS: APRESOLINE PO SCH ×3 (09:20→18:32)
[2018-12-27] MEDS: CULTURELLE FOR KIDS PO SCH ×3 (09:20→18:32)
[2018-12-27] MEDS: VIMPAT PO SCH ×2 (09:20→21:13)
[2018-12-27] MEDS: ASPIRIN PO SCH (09:20)
[2018-12-27] MEDS: SEROQUEL PO SCH ×2 (09:20→21:12)
[2018-12-27] MEDS: LIPITOR PO SCH (21:12)
[2018-12-27] MEDS: FLOMAX PO SCH (21:12)
[2018-12-28] MEDS: SYNTHROID PO SCH (06:16)
[2018-12-28] MEDS: HUMULIN R (PARKWAY) SUBQ SCH ×4 (06:16→23:22)
--- NOTE | 2018-12-28 08:19 | PROGRESS NOTE ---
DATE: 12/27/2018 SUBJECTIVE: Patient seen and examined. She is awake, alert. She is in no distress. PHYSICAL EXAMINATION: Vital Signs: Reviewed. Temp 97.9 degrees, pulse 80, respiratory rate 20, BP 182/72. General: Patient is awake. She is lying in bed. She is in no distress. She appears to be eating a little bit better this morning. Physical exam is unchanged. ASSESSMENT: 1. Diabetes. Blood sugars 145 to 343. This is about as good a control as can be achieved with Ms. Bajwa as she frequently will refuse to eat for 2 or 3 meals in a row. 2. Advanced dementia. 3. Physical deconditioning. 4. Hypothyroidism. 5. Social neglect. PLAN: Continue the patient in the hospital until which time she can transition to long-term care. cc: Ricky Daley MD
[2018-12-28] MEDS: VIMPAT PO SCH ×2 (11:08→20:14)
[2018-12-28] MEDS: ASPIRIN PO SCH (11:09)
[2018-12-28] MEDS: LASIX PO SCH (11:09)
[2018-12-28] MEDS: SEROQUEL PO SCH ×2 (11:09→20:14)
[2018-12-28] MEDS: CULTURELLE FOR KIDS PO SCH ×3 (11:10→20:14)
[2018-12-28] MEDS: NORVASC PO SCH (11:10)
[2018-12-28] MEDS: LANTUS INSULIN SUBQ SCH (11:10)
[2018-12-28] MEDS: TOPROL XL PO SCH (11:10)
[2018-12-28] MEDS: APRESOLINE PO SCH ×3 (11:28→20:13)
--- NOTE | 2018-12-28 19:24 | PROGRESS NOTE ---
DATE: 12/28/2018 SUBJECTIVE: Patient without any new complaints. PHYSICAL EXAMINATION: Vital Signs: Reviewed. Temperature 98 degrees, pulse 77, respiratory 20, BP 143/76. Blood sugars elevated 248 to 408. General: She is awake, alert, oriented. She is in no distress. Otherwise, physical exam is unchanged. ASSESSMENT: 1. Diabetes with very difficult control. 2. Advanced dementia. 3. Hypothyroidism. 4. Physical deconditioning. 5. Do Not Resuscitate. PLAN: We will continue patient in the hospital until which time she is able to transition to long- term care. cc: Ricky Daley MD
[2018-12-28] MEDS: FLOMAX PO SCH (20:14)
[2018-12-28] MEDS: LIPITOR PO SCH (20:14)
[2018-12-29] MEDS: HUMULIN R (PARKWAY) SUBQ SCH ×4 (06:12→20:27)
[2018-12-29] MEDS: SYNTHROID PO SCH (06:12)
[2018-12-29] MEDS: LASIX PO SCH (09:18)
[2018-12-29] MEDS: ASPIRIN PO SCH (09:18)
[2018-12-29] MEDS: APRESOLINE PO SCH ×3 (09:18→20:27)
[2018-12-29] MEDS: SEROQUEL PO SCH ×2 (09:18→20:27)
[2018-12-29] MEDS: TOPROL XL PO SCH (09:18)
[2018-12-29] MEDS: VIMPAT PO SCH ×2 (09:18→20:27)
[2018-12-29] MEDS: NORVASC PO SCH (09:18)
[2018-12-29] MEDS: CULTURELLE FOR KIDS PO SCH ×3 (09:19→20:27)
[2018-12-29] MEDS: LANTUS INSULIN SUBQ SCH (09:19)
--- NOTE | 2018-12-29 14:21 | PROGRESS NOTE ---
DATE: 12/29/2018 SUBJECTIVE: Patient has no complaints. OBJECTIVE: Blood pressure is 169/72, heart rate 68, respiratory rate 18, temperature 97.4 degrees, 97% on room air. Cardiovascular: Regular rate and rhythm. Pulmonary: Bilateral breath sounds clear to auscultation. GI: Soft, nontender, nondistended. Bowel sounds were positive. Sugars are still in the 400s, which is not ideal. PROBLEMS: 1. Brittle diabetes. We will continue treatment. She is currently on 10 of Lantus, which I guess we have been reluctant to increase because she has bottomed out at times but I think we are going to have to increase it some. 2. Dementia with severe intermittent behavioral issues. She is not able to manage anything on her own. She is not even really completely aware of where she is. She is on multiple medications. She has had seizure type episodes before and has been on those medicines. DISPOSITION: We are going to continue treatment. We are waiting on long-term placement which is a legal issue at this point, determining power of brick grader and seizing her assets which her in-law family has absconded with apparently so she has no means to pay for long-term care at this point. We will continue supportive care in the meantime. cc: Zachery Bill MD
[2018-12-29] MEDS: LIPITOR PO SCH (20:27)
[2018-12-29] MEDS: FLOMAX PO SCH (20:27)
[2018-12-30] MEDS: SYNTHROID PO SCH (06:03)
[2018-12-30] MEDS: HUMULIN R (PARKWAY) SUBQ SCH ×4 (06:03→21:00)
[2018-12-30] MEDS: SEROQUEL PO SCH ×2 (11:29→20:14)
[2018-12-30] MEDS: CULTURELLE FOR KIDS PO SCH ×3 (11:29→20:13)
[2018-12-30] MEDS: TOPROL XL PO SCH (11:29)
[2018-12-30] MEDS: LASIX PO SCH (11:30)
[2018-12-30] MEDS: APRESOLINE PO SCH ×3 (11:30→20:13)
[2018-12-30] MEDS: ASPIRIN PO SCH (11:30)
[2018-12-30] MEDS: NORVASC PO SCH (11:30)
[2018-12-30] MEDS: VIMPAT PO SCH ×3 (11:37→20:14)
[2018-12-30] MEDS: LANTUS INSULIN SUBQ SCH (11:37)
[2018-12-30 11:59] LABS: AGAP 9; ALBUMIN 3.5 g/dL (3.5-5.0); ALKALINE PHOSPHATASE 128 U/L (32-104); BUN 20 mg/dL (8-22); CALCIUM 8.9 mg/dL (8.8-10.2); CHLORIDE 102 mmol/L (98-107); COSMO 289; CREATININE 0.7 mg/dL (0.5-0.9); ESTIMATED GFR > 60; GLUCOSE 319 mg/dL (70-104); GOT 10 U/L (10-30); GPT 11 U/L (10-36); POTASSIUM 3.5 mmol/L (3.5-5.1); SODIUM 137 mmol/L (136-145); TCO2 26 mmol/L (25-35); TOTAL PROTEIN 6.8 g/dL (6.3-8.3)
--- NOTE | 2018-12-30 12:00 | PROGRESS NOTE ---
DATE: 12/30/2018 SUBJECTIVE: Overnight, she has had a seizure without really any clear recourse. Her sugar at that time reportedly was in the 300s. Nurses noted a seizure around 320, that lasted about 2 minutes. The patient bit her tongue. CAT call was done. Her blood pressure is actually very high. Heart rate was elevated. She was postictal subsequently, but is now pretty much back to baseline. Unclear what caused her seizure. She has had several in the past. Previously, a lot of them have been associated with low blood sugars, but apparently not this time. Again, she is back to baseline. Does not have a focal neurological exam, although she is still somewhat a bit lethargic. OBJECTIVE: Blood pressure 141/71, heart rate 72, respiratory rate 18, and temperature 97.8 degrees, 100% on 2 L.Cardiovascular: Regular rate and rhythm. Pulmonary: Bilateral breath sounds. Clear to auscultation. GI: Soft, nontender, and nondistended. Bowel sounds are positive. LABORATORY: The labs are pending today to rule out any major issues. IMPRESSION: 1. Seizure disorder, of unclear etiology since she had a very high blood pressure. Stroke is a possibility, although she has a nonfocal exam. We will check a head CT. They have been previously negative, and I will discuss with Dr. Emerson about adjusting her seizure medicine. I will add Meghan at this point. 2. Dementia is stable on her current medications. 3. Diabetes is still not quite well controlled. I have bumped up her Lantus. We will kind of see how things look. 4. Disposition is still in question because she has no long-term facility, and no one to take care of her as an outpatient. She cannot take care of herself. She has been previously established as a DNR. cc: Zachery Bill MD
[2018-12-30 12:05] LABS: BASO# 0.02 X1000 (0.0-0.2); BASO% 0.3 % (0.0-0.8); EOS# 0.08 X1000 (0.0-0.7); EOS% 1.1 % (0.0-10.0); HEMATOCRIT 32.1 % (37.0-47.0); HEMOGLOBIN 10.4 g/dL (12.0-16.0); IMM GRAN# 0.02 X1000 (0.0-0.04); IMM GRAN% 0.3 % (0.0-0.5); LYMPH# 1.29 X1000 (1.2-3.4); LYMPH% 17.5 % (20.5-51.1); MCH 25.5 PG (27-31); MCHC 32.4 g/dL (33-37); MCV 78.7 FL (81-99); MONO% 9.5 % (1.7-9.3); NEUT# 5.25 X1000 (1.4-6.5); NEUT% 71.3 % (42.2-75.2); PLT 256 X1000 (130-400); RBC 4.08 XMIL (4.2-5.4); WBC 7.36 X1000 (4.8-10.8)
[2018-12-30 12:14] LABS: LYMPHS 18 % (21-51); SEGS 75 % (42-75)
[2018-12-30 12:15] LABS: EOS 1 % (1-10); MONO 6 % (1-9)
--- NOTE | 2018-12-30 13:32 | Diag Imaging Result Doc PS360 ---
EXAM: CT HEAD W/O CONTRAST INDICATION: encephalopathy TECHNIQUE: This exam was performed using automated exposure control, adjustment of mA or kV according to patient size, and/or use of iterative reconstruction technique. 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 There is a stable catheter in the subdural space on the left. There is advanced white matter microangiopathy that is stable. There is no definite acute infarct given the limited sensitivity of CT versus MRI. There is no discrete intracranial mass, mass effect, or intracranial hemorrhage. The surrounding soft tissues and bony structures are essentially unremarkable. IMPRESSION: Stable advanced chronic changes as described. No definite acute intracranial pathology by CT. Electronically signed by Pacheco Frank 12/30/2018 1:29 PM
[2018-12-30 17:03] LABS: BILIRUBIN URINE NEGATIVE (NEGATIVE); BLOOD URINE TRACE (NEGATIVE); CLARITY SL. CLOUDY (CLEAR); COLOR YELLOW; KETONE URINE NEGATIVE (NEGATIVE); LEUKOCYTES URINE 2+ (NEGATIVE); NITRITE URINE NEGATIVE (NEGATIVE); PH URINE 6.5; PROTEIN URINE 1+(30 mg/dL) mg/dL (NEGATIVE); UROBILINOGEN URINE NORMAL
[2018-12-30 17:20] LABS: URINE SOURCE CATH
[2018-12-30 17:22] LABS: URINE BACTERIA NEGATIVE /HFP; URINE CAST NONE SEEN /LPF; URINE CRYSTAL NONE SEEN /HPF; URINE EPITHELIAL CELLS <10 /HPF (<10); URINE RBC <10 /HPF (<10); URINE WBC TNTC /HPF (<10); URINE YEAST PRESENT /HPF
[2018-12-30] MEDS: LIPITOR PO SCH (20:14)
[2018-12-30] MEDS: FLOMAX PO SCH (20:14)
[2018-12-31] MEDS: SYNTHROID PO SCH (06:02)
[2018-12-31] MEDS: HUMULIN R (PARKWAY) SUBQ SCH ×4 (06:02→21:38)
[2018-12-31] MEDS: VIMPAT PO SCH ×3 (09:55→21:39)
[2018-12-31] MEDS: NORVASC PO SCH (09:55)
[2018-12-31] MEDS: TOPROL XL PO SCH (09:55)
[2018-12-31] MEDS: LANTUS INSULIN SUBQ SCH (09:55)
[2018-12-31] MEDS: ASPIRIN PO SCH (09:55)
[2018-12-31] MEDS: LASIX PO SCH (09:55)
[2018-12-31] MEDS: CULTURELLE FOR KIDS PO SCH ×3 (09:55→17:32)
[2018-12-31] MEDS: APRESOLINE PO SCH ×3 (09:59→17:32)
[2018-12-31] MEDS: SEROQUEL PO SCH ×2 (10:00→21:39)
--- NOTE | 2018-12-31 15:55 | PROGRESS NOTE ---
DATE: 12/31/2018 SUBJECTIVE: Patient has no major complaints. OBJECTIVE: Vital Signs: Blood pressure is 167/73, heart rate 71, respiratory rate 18, temperature 97.3 degrees, satting 100% on 2 L. Cardiovascular: Regular rate and rhythm. Pulmonary: Bilateral breath sounds. Clear to auscultation. GI: Soft, nontender. Neurological: Nonfocal. LABORATORY DATA: Really not that remarkable. H and H 10 and 32, white count 7. Her electrolytes looked okay. Her sugars look okay. Urine showed a lot of white blood cells, but there was no per se infection. Urine culture is pending and no growth thus far. PROBLEM LIST: 1. Seizure disorder. I have discussed the case with Dr. Emerson. He recommended to titrate up on the Vimpat, to stop the Keppra and gone up on her Vimpat lacosamide to 150 three times a day. 2. Hypertension appears to be stable. 3. Dementia is stable on current medications. DISPOSITION: Still awaiting long-term placement. cc: Zachery Bill MD
[2018-12-31] MEDS: LIPITOR PO SCH (21:40)
[2018-12-31] MEDS: FLOMAX PO SCH (21:40)
[2019-01-01] MEDS: HUMULIN R (PARKWAY) SUBQ SCH ×4 (06:17→21:46)
[2019-01-01] MEDS: SYNTHROID PO SCH (06:18)
[2019-01-01] MEDS: VIMPAT PO SCH ×3 (09:56→21:46)
[2019-01-01] MEDS: NORVASC PO SCH (09:56)
[2019-01-01] MEDS: APRESOLINE PO SCH ×3 (09:56→18:04)
[2019-01-01] MEDS: LASIX PO SCH (09:56)
[2019-01-01] MEDS: SEROQUEL PO SCH ×2 (09:56→21:46)
[2019-01-01] MEDS: ASPIRIN PO SCH (09:56)
[2019-01-01] MEDS: LANTUS INSULIN SUBQ SCH (09:57)
[2019-01-01] MEDS: TOPROL XL PO SCH (09:57)
[2019-01-01] MEDS: CULTURELLE FOR KIDS PO SCH ×3 (09:57→17:59)
[2019-01-01] MEDS: DIFLUCAN PO SCH (18:04)
--- NOTE | 2019-01-01 20:25 | PROGRESS NOTE ---
DATE: 01/01/2019 SUBJECTIVE: The patient has no major complaints. OBJECTIVE: Blood pressure 143/75, heart rate 73, respiratory rate 16, temperature is 97.4 degrees, 97% on room air.Cardiovascular: Regular rate and rhythm. Pulmonary: Bilateral breath sounds. Clear to auscultation. Gastrointestinal: Soft, nontender, nondistended. Bowel sounds are positive. Extremities: No clubbing or cyanosis. Lymphatic: No peripheral edema. Neurological: Nonfocal. LABORATORY DATA: Sugars 200s. Her urine culture has grown out yeast, which is most likely a contaminant. PROBLEM LIST: 1. Seizure disorder. She is on Vimpat 150 t.i.d. and stable. 2. Hypertension. Continue regular medications. 3. Dementia. Stable on current medications. 4. Type 2 diabetes is improved with adjustment of Lantus. 5. Funguria. We will try to discontinue her Hughes. I will probably give her a course of fluconazole just because she has just had issues with that in the past, but will start that today and follow. cc: Zachery Bill MD
[2019-01-01] MEDS: LIPITOR PO SCH (21:46)
[2019-01-01] MEDS: FLOMAX PO SCH (21:46)
[2019-01-02] MEDS: SYNTHROID PO SCH (06:12)
[2019-01-02] MEDS: HUMULIN R (PARKWAY) SUBQ SCH ×4 (06:13→21:03)
[2019-01-02] MEDS: VIMPAT PO SCH ×3 (11:59→20:51)
[2019-01-02] MEDS: ASPIRIN PO SCH (11:59)
[2019-01-02] MEDS: APRESOLINE PO SCH ×3 (11:59→16:47)
[2019-01-02] MEDS: LASIX PO SCH (11:59)
[2019-01-02] MEDS: CULTURELLE FOR KIDS PO SCH ×3 (11:59→16:47)
[2019-01-02] MEDS: TOPROL XL PO SCH (11:59)
[2019-01-02] MEDS: DIFLUCAN PO SCH (11:59)
[2019-01-02] MEDS: SEROQUEL PO SCH ×2 (11:59→20:51)
[2019-01-02] MEDS: NORVASC PO SCH (11:59)
[2019-01-02] MEDS: LANTUS INSULIN SUBQ SCH (12:00)
[2019-01-02] MEDS: LIPITOR PO SCH (20:50)
[2019-01-02] MEDS: FLOMAX PO SCH (20:51)
--- NOTE | 2019-01-02 21:24 | PROGRESS NOTE ---
DATE: 01/02/2019 SUBJECTIVE: She is sitting up in bed eating. No complications OBJECTIVE: Blood pressure 162/78, heart rate 64, respiratory rate 16, temperature 97.5, saturation 94% on room air. Cardiovascular: Regular rate and rhythm. Pulmonary: Bilateral breath sounds, clear to auscultation. GI: Soft, nontender, nondistended. Bowel sounds are positive. LABORATORY DATA: Sugars are in the 200s. No big changes on labs. PROBLEM LIST: 1. Dementia, behavioral disturbance. She seems a little bit better today. 2. Seizure disorder, so far controlled. It has been over 48 hours on her new dose of Vimpat, and she is stable. 3. Dementia, stable on current medications. 4. Funguria. We have removed her Hguhes, and we will see how she is doing. Hopefully she is not retaining anything. cc: Zachery Bill MD
[2019-01-03] MEDS: HUMULIN R (PARKWAY) SUBQ SCH ×4 (06:10→21:18)
[2019-01-03] MEDS: SYNTHROID PO SCH (06:19)
[2019-01-03] MEDS: LANTUS INSULIN SUBQ SCH (08:51)
[2019-01-03] MEDS: DIFLUCAN PO SCH (08:51)
[2019-01-03] MEDS: LASIX PO SCH (08:51)
[2019-01-03] MEDS: VIMPAT PO SCH ×3 (08:51→21:26)
[2019-01-03] MEDS: CULTURELLE FOR KIDS PO SCH ×3 (08:52→17:33)
[2019-01-03] MEDS: APRESOLINE PO SCH ×3 (08:52→17:33)
[2019-01-03] MEDS: NORVASC PO SCH (08:52)
[2019-01-03] MEDS: TOPROL XL PO SCH (08:52)
[2019-01-03] MEDS: ASPIRIN PO SCH (08:52)
[2019-01-03] MEDS: SEROQUEL PO SCH ×2 (08:53→21:27)
[2019-01-03] MEDS: FLOMAX PO SCH (21:26)
[2019-01-03] MEDS: LIPITOR PO SCH (21:26)
--- NOTE | 2019-01-04 05:45 | PROGRESS NOTE ---
DATE: 01/03/2019 SUBJECTIVE: She has no major complaints. She is sitting there, doing well. No major issues. OBJECTIVE: Blood pressure is 157/77, heart rate of 72, respiratory rate 18, temperature 97.4 degrees, 95% on room air.Cardiovascular: Regular rate and rhythm. Pulmonary: Bilateral breath sounds clear to auscultation. Gastrointestinal: Soft, nontender, nondistended. Bowel sounds are positive. LABORATORY DATA: Sugars have been 196, 290. PROBLEM LIST: 1. Dementia. She is stable currently on her regimen. 2. Seizure disorder. She is on adjusted dose of Vimpat, and that seems controlled. 3. Funguria. We have removed her Hughes. She has had some issues with retention before. We are just kind of keeping an eye on that, just because of concern over replacing her Hughes, but we will continue to follow. I am going to give her Diflucan for maybe 5 to 7 days. This will be day 3, and we will see how she does. cc: Zachery Bill MD
[2019-01-04] MEDS: HUMULIN R (PARKWAY) SUBQ SCH ×4 (06:08→21:56)
[2019-01-04] MEDS: SYNTHROID PO SCH ×2 (06:34→06:38)
[2019-01-04] MEDS: DIFLUCAN PO SCH (10:46)
[2019-01-04] MEDS: CULTURELLE FOR KIDS PO SCH ×3 (10:46→16:31)
[2019-01-04] MEDS: NORVASC PO SCH (10:46)
[2019-01-04] MEDS: SEROQUEL PO SCH ×2 (10:46→23:08)
[2019-01-04] MEDS: ASPIRIN PO SCH (10:46)
[2019-01-04] MEDS: VIMPAT PO SCH ×3 (10:47→23:08)
[2019-01-04] MEDS: TOPROL XL PO SCH (10:47)
[2019-01-04] MEDS: APRESOLINE PO SCH ×3 (10:47→16:31)
[2019-01-04] MEDS: LASIX PO SCH (10:47)
[2019-01-04] MEDS: LANTUS INSULIN SUBQ SCH (12:42)
--- NOTE | 2019-01-04 17:17 | PROGRESS NOTE ---
DATE: 01/04/2019 SUBJECTIVE: Patient has no major complaints. OBJECTIVE: Blood pressure is 140/93, heart rate 68, respiratory rate 14, temperature 97.4 degrees, 98% on room air.Cardiovascular: Regular rate and rhythm. Pulmonary: Bilateral breath sounds clear to auscultation. Gastrointestinal: Soft, nontender, nondistended. Bowel sounds are positive. DIAGNOSTIC STUDIES: No new labs. Sugars have been kind of fluctuant. She had a couple in the low 70s because she has not been awake as much. ASSESSMENT: 1. Dementia. She is stable currently. 2. Seizure disorder. She is on a higher dose of Vimpat for seizure control, but I am a little concerned it may be oversedating her. I am going to back down on her Seroquel because I just do not want to be oversedating her. DISPOSITION: We are still waiting on long-term care placement. cc: Zachery Bill MD
[2019-01-04] MEDS: FLOMAX PO SCH (23:08)
[2019-01-04] MEDS: LIPITOR PO SCH (23:08)
[2019-01-05] MEDS: SYNTHROID PO SCH (06:03)
[2019-01-05] MEDS: HUMULIN R (PARKWAY) SUBQ SCH ×4 (06:58→21:21)
[2019-01-05] MEDS: APRESOLINE PO SCH ×3 (09:27→17:40)
[2019-01-05] MEDS: ASPIRIN PO SCH (09:27)
[2019-01-05] MEDS: TOPROL XL PO SCH (09:27)
[2019-01-05] MEDS: SEROQUEL PO SCH ×2 (09:27→21:20)
[2019-01-05] MEDS: LASIX PO SCH (09:27)
[2019-01-05] MEDS: CULTURELLE FOR KIDS PO SCH ×3 (09:27→17:40)
[2019-01-05] MEDS: LANTUS INSULIN SUBQ SCH (09:28)
[2019-01-05] MEDS: DIFLUCAN PO SCH (09:28)
[2019-01-05] MEDS: NORVASC PO SCH (09:28)
[2019-01-05] MEDS: VIMPAT PO SCH ×3 (09:28→21:20)
--- NOTE | 2019-01-05 19:45 | PROGRESS NOTE ---
DATE: 01/05/2019 SUBJECTIVE: Patient has no complaints. PHYSICAL EXAMINATION: Vital Signs: Reviewed. Temperature 97.8 degrees, pulse 78, respiratory 18, BP 132/64. LABORATORY: Blood sugars 107 to 215. Currently, on 15 units of Lantus. PHYSICAL EXAMINATION: Unchanged. ASSESSMENT: 1. Dementia. 2. Seizure disorder. 3. Diabetes. 4. Adult failure to thrive. PLAN: We will continue to follow her blood sugars. She did recently have a seizure. We will continue to follow this and await the opportunity to transition to long-term care. cc: Ricky Daley MD
[2019-01-05] MEDS: LIPITOR PO SCH (21:20)
[2019-01-05] MEDS: FLOMAX PO SCH (21:20)
[2019-01-06] MEDS: HUMULIN R (PARKWAY) SUBQ SCH ×4 (06:18→21:28)
[2019-01-06] MEDS: SYNTHROID PO SCH (06:18)
[2019-01-06] MEDS: APRESOLINE PO SCH ×3 (09:48→17:57)
[2019-01-06] MEDS: SEROQUEL PO SCH ×2 (09:48→21:28)
[2019-01-06] MEDS: CULTURELLE FOR KIDS PO SCH ×3 (09:48→17:57)
[2019-01-06] MEDS: DIFLUCAN PO SCH (09:49)
[2019-01-06] MEDS: ASPIRIN PO SCH (09:49)
[2019-01-06] MEDS: LASIX PO SCH (09:49)
[2019-01-06] MEDS: NORVASC PO SCH (09:49)
[2019-01-06] MEDS: TOPROL XL PO SCH (09:49)
[2019-01-06] MEDS: LANTUS INSULIN SUBQ SCH (09:49)
[2019-01-06] MEDS: VIMPAT PO SCH ×3 (09:49→21:29)
[2019-01-06] MEDS: MIRALAX PO PRN (13:54)
--- NOTE | 2019-01-06 19:58 | PROGRESS NOTE ---
DATE: 01/06/2019 SUBJECTIVE: No complaints. PHYSICAL EXAMINATION: Vital Signs: Reviewed. Temperature 97.8 degrees, pulse 72, respiratory rate 18, BP 138/67. Blood sugars 199 to 452. Currently on Lantus 15 units. Physical exam is unchanged. ASSESSMENT: 1. Diabetes with hyperglycemia. 2. Seizure disorder. 3. Dementia. PLAN: Will continue to follow. cc: Ricky Daley MD
[2019-01-06] MEDS: FLOMAX PO SCH (21:28)
[2019-01-06] MEDS: LIPITOR PO SCH (21:28)
[2019-01-07] MEDS: HUMULIN R (PARKWAY) SUBQ SCH ×4 (06:05→20:28)
[2019-01-07] MEDS: SYNTHROID PO SCH (06:06)
[2019-01-07] MEDS: LASIX PO SCH (08:07)
[2019-01-07] MEDS: SEROQUEL PO SCH ×2 (08:07→20:28)
[2019-01-07] MEDS: VIMPAT PO SCH ×3 (08:07→20:29)
[2019-01-07] MEDS: DIFLUCAN PO SCH (08:07)
[2019-01-07] MEDS: NORVASC PO SCH (08:07)
[2019-01-07] MEDS: TOPROL XL PO SCH (08:07)
[2019-01-07] MEDS: APRESOLINE PO SCH ×3 (08:07→18:30)
[2019-01-07] MEDS: CULTURELLE FOR KIDS PO SCH ×3 (08:08→18:31)
[2019-01-07] MEDS: LANTUS INSULIN SUBQ SCH (08:08)
[2019-01-07] MEDS: ASPIRIN PO SCH (08:08)
--- NOTE | 2019-01-07 19:40 | PROGRESS NOTE ---
DATE: 01/07/2019 SUBJECTIVE: No complaints. PHYSICAL EXAMINATION: Vital Signs: Reviewed and stable. BP 135/75, temp 97.6 degrees, pulse 75. Blood sugars 80 to 330. The rest of the physical exam is unchanged. ASSESSMENT: 1. Dementia. 2. Seizure disorder. 3. Diabetes with hyperglycemia recalcitrant to treatment given the patient's sporadic eating habits. 4. Adult failure to thrive. PLAN: We will continue patient in the hospital. Continue to follow. Further orders as needed. cc: Ricky Daley MD
[2019-01-07] MEDS: LIPITOR PO SCH (20:28)
[2019-01-07] MEDS: FLOMAX PO SCH (20:28)
[2019-01-08] MEDS: SYNTHROID PO SCH (06:13)
[2019-01-08] MEDS: HUMULIN R (PARKWAY) SUBQ SCH ×4 (06:13→20:42)
[2019-01-08] MEDS: LASIX PO SCH (09:02)
[2019-01-08] MEDS: VIMPAT PO SCH ×3 (09:02→20:42)
[2019-01-08] MEDS: DIFLUCAN PO SCH (09:03)
[2019-01-08] MEDS: LANTUS INSULIN SUBQ SCH (09:03)
[2019-01-08] MEDS: NORVASC PO SCH (09:03)
[2019-01-08] MEDS: TOPROL XL PO SCH (09:03)
[2019-01-08] MEDS: APRESOLINE PO SCH ×3 (09:03→17:00)
[2019-01-08] MEDS: ASPIRIN PO SCH (09:03)
[2019-01-08] MEDS: CULTURELLE FOR KIDS PO SCH ×3 (09:03→17:00)
[2019-01-08] MEDS: SEROQUEL PO SCH ×2 (09:03→20:42)
--- NOTE | 2019-01-08 16:15 | PROGRESS NOTE ---
DATE: 01/08/2019 SUBJECTIVE: Patient seen and examined. No complaints. She is quite vocal this morning. PHYSICAL EXAMINATION: Vital Signs: Reviewed and stable, unchanged. PHYSICAL EXAMINATION: Unchanged. Blood sugars reviewed. ASSESSMENT: 1. Dementia. 2. Seizure disorder. 3. Diabetes. 4. Adult failure to thrive with poor social situation with social neglect. PLAN: We will continue in the hospital until transfer to long-term care. cc: Ricky Daley MD
[2019-01-08] MEDS: LIPITOR PO SCH (20:42)
[2019-01-08] MEDS: FLOMAX PO SCH (20:42)
[2019-01-09] MEDS: HUMULIN R (PARKWAY) SUBQ SCH ×4 (06:07→20:27)
[2019-01-09] MEDS: SYNTHROID PO SCH (06:07)
[2019-01-09] MEDS: NORVASC PO SCH (08:57)
[2019-01-09] MEDS: VIMPAT PO SCH ×3 (08:57→20:26)
[2019-01-09] MEDS: SEROQUEL PO SCH ×2 (08:57→20:27)
[2019-01-09] MEDS: LASIX PO SCH (08:57)
[2019-01-09] MEDS: TOPROL XL PO SCH (08:57)
[2019-01-09] MEDS: APRESOLINE PO SCH ×3 (08:57→17:01)
[2019-01-09] MEDS: ASPIRIN PO SCH (08:57)
[2019-01-09] MEDS: LANTUS INSULIN SUBQ SCH (08:58)
[2019-01-09] MEDS: CULTURELLE FOR KIDS PO SCH ×3 (08:58→17:01)
[2019-01-09] MEDS: DIFLUCAN PO SCH (09:00)
--- NOTE | 2019-01-09 19:03 | PROGRESS NOTE ---
DATE: 01/09/2019 SUBJECTIVE: Patient seen and examined. Full note dictated and discussed with nurse practitioner. The patient has no complaints. She is lying quietly in the bed. OBJECTIVE: Temperature 98.3 degrees, pulse 74, respiratory 20, BP 148/60, blood sugars elevated at 250s to 350s. Physical exam unchanged. PLAN: The patient will continue in the hospital until she can transition to long-term care. Overall, she is stable. We will continue to follow. cc: Ricky Daley MD
[2019-01-09] MEDS: LIPITOR PO SCH (20:26)
[2019-01-09] MEDS: FLOMAX PO SCH (20:27)
[2019-01-10] MEDS: HUMULIN R (PARKWAY) SUBQ SCH ×4 (06:10→20:20)
[2019-01-10] MEDS: SYNTHROID PO SCH (06:11)
[2019-01-10] MEDS: DIFLUCAN PO SCH (10:30)
[2019-01-10] MEDS: CULTURELLE FOR KIDS PO SCH ×3 (10:30→16:49)
[2019-01-10] MEDS: APRESOLINE PO SCH ×3 (10:30→16:49)
[2019-01-10] MEDS: LASIX PO SCH (10:30)
[2019-01-10] MEDS: NORVASC PO SCH (10:30)
[2019-01-10] MEDS: VIMPAT PO SCH ×3 (10:30→20:20)
[2019-01-10] MEDS: LANTUS INSULIN SUBQ SCH (10:30)
[2019-01-10] MEDS: TOPROL XL PO SCH (10:30)
[2019-01-10] MEDS: SEROQUEL PO SCH ×2 (10:30→20:20)
[2019-01-10] MEDS: ASPIRIN PO SCH (10:30)
[2019-01-10] MEDS: FLOMAX PO SCH (20:20)
[2019-01-10] MEDS: LIPITOR PO SCH (20:20)
[2019-01-11] MEDS: SYNTHROID PO SCH (06:47)
[2019-01-11] MEDS: HUMULIN R (PARKWAY) SUBQ SCH ×4 (06:47→21:54)
--- NOTE | 2019-01-11 09:14 | PROGRESS NOTE ---
DATE: 01/10/2019 SUBJECTIVE: No complaints. PHYSICAL EXAMINATION: Vital Signs: Reviewed and unchanged. LABORATORY DATA: Blood sugars 138 to 320. ASSESSMENT: 1. Diabetes. 2. Hypertension. 3. Adult failure to thrive. PLAN: We will continue patient in the hospital until she can transition to long-term care. cc: Ricky Daley MD
[2019-01-11] MEDS: VIMPAT PO SCH ×3 (09:50→20:20)
[2019-01-11] MEDS: TOPROL XL PO SCH (09:50)
[2019-01-11] MEDS: DIFLUCAN PO SCH (09:50)
[2019-01-11] MEDS: ASPIRIN PO SCH (09:50)
[2019-01-11] MEDS: LASIX PO SCH (09:50)
[2019-01-11] MEDS: APRESOLINE PO SCH ×3 (09:50→17:31)
[2019-01-11] MEDS: NORVASC PO SCH (09:50)
[2019-01-11] MEDS: LANTUS INSULIN SUBQ SCH (09:50)
[2019-01-11] MEDS: SEROQUEL PO SCH ×2 (09:50→20:20)
[2019-01-11] MEDS: CULTURELLE FOR KIDS PO SCH ×3 (09:50→17:31)
[2019-01-11] MEDS: FLOMAX PO SCH (20:20)
[2019-01-11] MEDS: LIPITOR PO SCH (20:20)
--- NOTE | 2019-01-11 21:27 | PROGRESS NOTE ---
DATE: 01/11/2019 SUBJECTIVE: No complaints. OBJECTIVE: Physical unchanged. Vital signs reviewed. Temp 97.4 degrees, pulse 82, respiratory rate 18, BP 149/62. Blood sugars elevated today at 215 to 415. ASSESSMENT: 1. Diabetes. Blood sugars are elevated today, but she had some low blood sugars a few days ago with her blood sugars in the low 80s. Unfortunately, it is impossible to get good control of her blood sugar as she sporadically eats. 2. Adult failure to thrive. 3. Seizure disorder. 4. Dementia. PLAN: We are continuing to treat symptomatically. We will follow. She is awaiting long-term placement. cc: Ricky Daley MD
[2019-01-12] MEDS: HUMULIN R (PARKWAY) SUBQ SCH ×4 (06:14→22:11)
[2019-01-12] MEDS: DIFLUCAN PO SCH (09:06)
[2019-01-12] MEDS: LASIX PO SCH (09:06)
[2019-01-12] MEDS: APRESOLINE PO SCH ×3 (09:06→22:10)
[2019-01-12] MEDS: SEROQUEL PO SCH ×2 (09:06→22:11)
[2019-01-12] MEDS: TOPROL XL PO SCH (09:06)
[2019-01-12] MEDS: NORVASC PO SCH (09:06)
[2019-01-12] MEDS: ASPIRIN PO SCH (09:06)
[2019-01-12] MEDS: CULTURELLE FOR KIDS PO SCH ×3 (09:06→22:10)
[2019-01-12] MEDS: VIMPAT PO SCH ×3 (09:06→22:11)
[2019-01-12] MEDS: LANTUS INSULIN SUBQ SCH (09:07)
[2019-01-12] MEDS: SYNTHROID PO SCH (09:07)
--- NOTE | 2019-01-12 14:13 | PROGRESS NOTE ---
DATE: 01/12/2019 SUBJECTIVE: No complaints at this time. No acute issues noted as per nursing staff overnight. OBJECTIVE: Vital Signs: Temperature 98 degrees, heart rate 76, respiratory rate 16, and blood pressure 144/70. O2 saturation 99% on room air. General: This is a chronically ill-appearing 83- year-old demented female lying in bed in no acute distress. Cardiovascular: S1, S2 heard. No murmurs, gallops, or rubs. Respiratory: Minimal coarse breath sounds noted in both pulmonary bases. Patient not using any accessory muscles or having work of breathing. Abdomen: Soft. Nontender to palpation. Bowel sounds present. No organomegaly. Neurological: Patient is confused but moves all 4 extremities spontaneously. ASSESSMENT AND PLAN: 1. Diabetes mellitus type 2. The patient got really difficult to control because sometimes she does not eat. She is on sliding scale insulin. We will continue to monitor this patient closely. 2. Adult failure to thrive. 3. Seizure disorder. 4. Dementia. PLAN: We will continue to await placement for this patient. cc: Onur Parada MD
[2019-01-12] MEDS: LIPITOR PO SCH (22:11)
[2019-01-12] MEDS: FLOMAX PO SCH (22:12)
[2019-01-13] MEDS: SYNTHROID PO SCH (06:23)
[2019-01-13] MEDS: HUMULIN R (PARKWAY) SUBQ SCH ×4 (06:23→22:45)
[2019-01-13] MEDS: CULTURELLE FOR KIDS PO SCH ×3 (11:01→22:45)
[2019-01-13] MEDS: ASPIRIN PO SCH (11:01)
[2019-01-13] MEDS: APRESOLINE PO SCH ×3 (11:02→22:45)
[2019-01-13] MEDS: SEROQUEL PO SCH ×2 (11:02→22:45)
[2019-01-13] MEDS: LASIX PO SCH (11:02)
[2019-01-13] MEDS: NORVASC PO SCH (11:02)
[2019-01-13] MEDS: VIMPAT PO SCH ×3 (11:02→22:45)
[2019-01-13] MEDS: LANTUS INSULIN SUBQ SCH (11:03)
[2019-01-13] MEDS: TOPROL XL PO SCH (11:03)
--- NOTE | 2019-01-13 11:46 | PROGRESS NOTE ---
DATE: 01/13/2019 SUBJECTIVE: The patient does not have any complaints at this time, patient mumbles some unintelligible words. OBJECTIVE: Vital Signs: Temperature is 37.4, heart rate 80, respiratory rate 20, and blood pressure 143/95. O2 saturation 93% on room air. General: This is a chronically ill-appearing 83- year-old female lying in bed in no acute distress. Cardiovascular: S1 and S2 heard. No murmurs, gallops, or rubs. Regular rate and rhythm. Respiratory: Coarse breath sounds noted in both pulmonary bases. Patient not using any accessory muscles or having work of breathing. Abdomen: Soft and nontender to palpation. Neurological: Patient is demented and sometimes agitated. ASSESSMENT AND PLAN: 1. Diabetes mellitus type 2. We will continue with Accu-Chek's before meals and also at bedtime. It is important to remark that it is very difficult to control her blood sugars because sometimes she eats and sometimes she does not. We will continue to monitor. 2. Adult failure to thrive. 3. Seizure disorder. 4. Advanced dementia. 5. We will continue awaiting placement for this patient. cc: Onur Parada MD
[2019-01-13] MEDS: LIPITOR PO SCH (22:45)
[2019-01-13] MEDS: FLOMAX PO SCH (22:45)
[2019-01-14] MEDS: HUMULIN R (PARKWAY) SUBQ SCH ×4 (06:07→21:11)
[2019-01-14] MEDS: SYNTHROID PO SCH (06:08)
--- NOTE | 2019-01-14 11:27 | PROGRESS NOTE ---
DATE: 01/14/2019 SUBJECTIVE: The patient looks to be more awake today. Patient continues to mumble unintelligible words. No acute issues noted as per nursing staff overnight. OBJECTIVE: Vital Signs: Temperature 98.6, heart rate 86, respiratory rate 16, blood pressure 154/80, O2 saturation 100% on room air. General Examination: This is a chronically ill- appearing, 83-year-old, female, lying in bed, in no acute distress. Cardiovascular Examination: S1 and S2 heard. No murmurs, gallops, or rubs. Regular rate and rhythm. Respiratory Examination: Minimal coarse breath sounds noted in both pulmonary bases. Patient is not using any accessory muscles or having work of breathing. Neurological Examination: The patient is awake but nonverbal. Moves 4 extremities spontaneously. ASSESSMENT: 1. Diabetes mellitus type 2. We will continue with Accu-Chek before meals and also at bedtime. 2. Adult failure to thrive. 3. Seizure disorder. 4. Advanced dementia. PLAN: We will continue awaiting placement for this patient. cc: Onur Parada MD
[2019-01-14] MEDS: APRESOLINE PO SCH ×3 (11:34→21:11)
[2019-01-14] MEDS: SEROQUEL PO SCH ×2 (11:34→21:12)
[2019-01-14] MEDS: TOPROL XL PO SCH (11:35)
[2019-01-14] MEDS: VIMPAT PO SCH ×3 (11:35→21:12)
[2019-01-14] MEDS: LASIX PO SCH (11:35)
[2019-01-14] MEDS: ASPIRIN PO SCH (11:35)
[2019-01-14] MEDS: CULTURELLE FOR KIDS PO SCH ×3 (11:35→21:11)
[2019-01-14] MEDS: LANTUS INSULIN SUBQ SCH (11:36)
[2019-01-14] MEDS: NORVASC PO SCH (11:36)
[2019-01-14] MEDS: LIPITOR PO SCH (21:11)
[2019-01-14] MEDS: FLOMAX PO SCH (21:11)
[2019-01-15] MEDS: SYNTHROID PO SCH (06:10)
[2019-01-15] MEDS: HUMULIN R (PARKWAY) SUBQ SCH ×4 (06:10→21:09)
[2019-01-15] MEDS: ASPIRIN PO SCH (09:22)
[2019-01-15] MEDS: TOPROL XL PO SCH (09:22)
[2019-01-15] MEDS: VIMPAT PO SCH ×3 (09:22→21:07)
[2019-01-15] MEDS: LANTUS INSULIN SUBQ SCH (09:23)
[2019-01-15] MEDS: LASIX PO SCH (09:23)
[2019-01-15] MEDS: NORVASC PO SCH (09:23)
[2019-01-15] MEDS: APRESOLINE PO SCH ×3 (09:23→21:08)
[2019-01-15] MEDS: CULTURELLE FOR KIDS PO SCH ×3 (09:23→21:09)
[2019-01-15] MEDS: SEROQUEL PO SCH ×2 (09:23→21:07)
--- NOTE | 2019-01-15 13:05 | PROGRESS NOTE ---
DATE: 01/15/2019 SUBJECTIVE: Patient reports feeling fine. She is more awake although she is not completely verbal. OBJECTIVE: Vital Signs: Temperature 98.0 degrees, heart rate 80, respiratory rate 18, blood pressure 155/74, O2 saturation 98% on room air. General Examination: This is a chronically ill- appearing 83-year-old female lying in bed, in no acute distress. Cardiovascular: S2 heard. No murmurs, gallops, or rubs. Regular rate and rhythm. Respiratory: Minimal coarse breath sounds noted in both pulmonary bases, unchanged in comparing with previous days. Patient is not using any accessory muscles or having work of breathing. Neurological: Patient is awake, but nonverbal. Moves 4 extremities spontaneously. ASSESSMENT AND PLAN: 1. Diabetes mellitus type II. Continue with accuchecks at bedtime and also sliding scale insulin. 2. Failure to thrive. 3. Seizure disorder. 4. Advanced dementia. 5. At this point, we will continue awaiting placement for this patient. cc: Onur Parada MD MTDD
[2019-01-15] MEDS: FLOMAX PO SCH (21:07)
[2019-01-15] MEDS: LIPITOR PO SCH (21:07)
[2019-01-16] MEDS: HUMULIN R (PARKWAY) SUBQ SCH ×4 (06:28→21:00)
[2019-01-16] MEDS: SYNTHROID PO SCH (06:28)
[2019-01-16] MEDS: ASPIRIN PO SCH (10:51)
[2019-01-16] MEDS: LANTUS INSULIN SUBQ SCH (10:51)
[2019-01-16] MEDS: APRESOLINE PO SCH ×3 (10:51→20:13)
[2019-01-16] MEDS: CULTURELLE FOR KIDS PO SCH ×3 (10:51→20:13)
[2019-01-16] MEDS: NORVASC PO SCH (10:52)
[2019-01-16] MEDS: TOPROL XL PO SCH (10:52)
[2019-01-16] MEDS: SEROQUEL PO SCH ×2 (10:52→20:13)
[2019-01-16] MEDS: LASIX PO SCH (10:52)
[2019-01-16] MEDS: VIMPAT PO SCH ×3 (10:52→20:13)
--- NOTE | 2019-01-16 13:25 | PROGRESS NOTE ---
DATE: 01/16/2019 SUBJECTIVE: Patient according to the nursing staff did not have acute issues overnight. She is nonverbal. OBJECTIVE: Vital Signs: Temperature 97.9 degrees, heart rate 73, respiratory rate 16, blood pressure 164/76. O2 saturation 100% on room air. General: This is a chronically ill-appearing 83-year-old female lying in bed, in no acute distress. Cardiovascular: S1, S2 heard. No murmurs, gallops, or rubs. Regular rate and rhythm. Respiratory: Coarse breath sounds noted in both pulmonary bases. Neurological: Patient is confused. Moves 4 extremities spontaneously. ASSESSMENT: 1. Diabetes mellitus type 2. We will continue with Accu-Chek before meals and also at bedtime and sliding scale insulin as well. 2. Adult failure to thrive. 3. Seizure disorder. 4. Advanced dementia. PLAN: At this point, we will continue awaiting placement for this patient. cc: Onur Parada MD MTDD
[2019-01-16] MEDS: LIPITOR PO SCH (20:13)
[2019-01-16] MEDS: FLOMAX PO SCH (20:13)
[2019-01-17] MEDS: SYNTHROID PO SCH (06:08)
[2019-01-17] MEDS: HUMULIN R (PARKWAY) SUBQ SCH ×4 (06:12→20:31)
[2019-01-17] MEDS: CULTURELLE FOR KIDS PO SCH ×3 (08:20→20:30)
[2019-01-17] MEDS: ASPIRIN PO SCH (08:20)
[2019-01-17] MEDS: APRESOLINE PO SCH ×3 (08:20→20:30)
[2019-01-17] MEDS: VIMPAT PO SCH ×3 (08:21→20:31)
[2019-01-17] MEDS: NORVASC PO SCH (08:21)
[2019-01-17] MEDS: SEROQUEL PO SCH ×2 (08:21→20:30)
[2019-01-17] MEDS: LASIX PO SCH (08:21)
[2019-01-17] MEDS: TOPROL XL PO SCH (08:21)
[2019-01-17] MEDS: LANTUS INSULIN SUBQ SCH (08:21)
[2019-01-17] MEDS: LIPITOR PO SCH (20:30)
[2019-01-17] MEDS: FLOMAX PO SCH (20:30)
[2019-01-18] MEDS: SYNTHROID PO SCH ×2 (04:44→06:10)
--- NOTE | 2019-01-18 05:31 | PROGRESS NOTE ---
DATE: 01/17/2019 SUBJECTIVE: The patient, according to nursing staff overnight, did not have any acute issues. She is nonverbal and yelling at times. OBJECTIVE: Vital Signs: Temperature 98.5, heart rate 73, respiratory rate 18, blood pressure 180/74, O2 saturation 96% on room air. General: This is a chronically ill- appearing, 83-year- old, female, lying in bed in no acute distress. Cardiovascular: S1, S2 heard. No murmurs, gallops, or rubs. Regular rate and rhythm. Respiratory: Coarse breath sounds noted in both pulmonary bases. Neurological: The patient is nonverbal. Moves all 4 extremities spontaneously. ASSESSMENT: 1. Diabetes mellitus type 2. Will continue with Accu-Chek before meals and also at bedtime, and sliding scale insulin as well. 2. Adult failure to thrive. 3. Seizure disorder. 4. Advanced dementia. PLAN: At this point, will continue to await placement for this patient. cc: Onur Parada MD MTDD
[2019-01-18] MEDS: HUMULIN R (PARKWAY) SUBQ SCH ×4 (06:10→21:51)
[2019-01-18] MEDS: VIMPAT PO SCH ×3 (09:57→21:51)
[2019-01-18] MEDS: CULTURELLE FOR KIDS PO SCH ×3 (09:57→21:50)
[2019-01-18] MEDS: NORVASC PO SCH (09:57)
[2019-01-18] MEDS: APRESOLINE PO SCH ×3 (09:57→21:51)
[2019-01-18] MEDS: ASPIRIN PO SCH (09:57)
[2019-01-18] MEDS: LASIX PO SCH (09:58)
[2019-01-18] MEDS: TOPROL XL PO SCH (09:58)
[2019-01-18] MEDS: SEROQUEL PO SCH ×2 (09:58→21:51)
[2019-01-18] MEDS: LANTUS INSULIN SUBQ SCH (09:58)
--- NOTE | 2019-01-18 19:24 | PROGRESS NOTE ---
DATE: 01/18/2019 SUBJECTIVE: Patient has no complaints this morning. PHYSICAL EXAMINATION: Vital Signs: Reviewed. Temperature 97.6 degrees, pulse 74, respiratory rate 18, BP 150/77. General: Patient is awake, alert. She is in no distress. She is quite vocal this morning. Physical exam is unchanged. ASSESSMENT: 1. Diabetes, type 2. 2. Adult failure to thrive. 3. Seizure. 4. Advanced dementia. PLAN: 1. Will continue patient in the hospital. 2. We will continue to allow her blood sugars to be elevated as she frequently refuses to eat anything and her blood sugars will plummet into the 30s and 40s. 3. Further orders as needed. cc: Ricky Daley MD
[2019-01-18] MEDS: LIPITOR PO SCH (21:51)
[2019-01-18] MEDS: FLOMAX PO SCH (21:51)
[2019-01-19] MEDS: HUMULIN R (PARKWAY) SUBQ SCH ×4 (06:28→21:20)
[2019-01-19] MEDS: SYNTHROID PO SCH (06:28)
[2019-01-19] MEDS: CULTURELLE FOR KIDS PO SCH ×3 (09:14→21:02)
[2019-01-19] MEDS: LASIX PO SCH (09:14)
[2019-01-19] MEDS: TOPROL XL PO SCH (09:14)
[2019-01-19] MEDS: APRESOLINE PO SCH ×3 (09:14→21:01)
[2019-01-19] MEDS: VIMPAT PO SCH ×3 (09:14→21:02)
[2019-01-19] MEDS: ASPIRIN PO SCH (09:14)
[2019-01-19] MEDS: SEROQUEL PO SCH ×2 (09:14→21:02)
[2019-01-19] MEDS: NORVASC PO SCH (09:14)
[2019-01-19] MEDS: LANTUS INSULIN SUBQ SCH (09:15)
--- NOTE | 2019-01-19 19:29 | PROGRESS NOTE ---
DATE: 01/19/2019 SUBJECTIVE: No complaints. OBJECTIVE: Vital signs reviewed. Temperature 98 degrees, pulse 74, BP 129/59. In general the patient is awake. She is quite vocal today. She is in no distress, did eat breakfast.HEENT: Normocephalic. Neck supple. Cardiovascular: Regular rate. Chest clear. ASSESSMENT: 1. Diabetes type 2. Poor control, as the patient's dietary habits change quite drastically and some days she completely refuses to eat; therefore, we cannot really get better control her blood sugar as this causes hypoglycemic episodes. 2. Adult failure to thrive. 3. Seizure disorder. 4. Dementia. PLAN: We will continue the patient in the hospital until she can transition to long-term. cc: Ricky Daley MD
[2019-01-19] MEDS: FLOMAX PO SCH (21:01)
[2019-01-19] MEDS: LIPITOR PO SCH (21:02)
[2019-01-20] MEDS: SYNTHROID PO SCH (06:07)
[2019-01-20] MEDS: HUMULIN R (PARKWAY) SUBQ SCH ×3 (06:22→17:18)
[2019-01-20] MEDS: CULTURELLE FOR KIDS PO SCH ×3 (09:59→20:18)
[2019-01-20] MEDS: LANTUS INSULIN SUBQ SCH (09:59)
[2019-01-20] MEDS: LASIX PO SCH (09:59)
[2019-01-20] MEDS: APRESOLINE PO SCH ×3 (09:59→20:18)
[2019-01-20] MEDS: VIMPAT PO SCH ×3 (09:59→20:17)
[2019-01-20] MEDS: NORVASC PO SCH (09:59)
[2019-01-20] MEDS: TOPROL XL PO SCH (09:59)
[2019-01-20] MEDS: SEROQUEL PO SCH ×2 (09:59→20:18)
[2019-01-20] MEDS: ASPIRIN PO SCH (09:59)
[2019-01-20] MEDS: FLOMAX PO SCH (20:17)
[2019-01-20] MEDS: LIPITOR PO SCH (20:26)
--- NOTE | 2019-01-20 22:24 | PROGRESS NOTE ---
DATE: 01/20/2019 SUBJECTIVE: Patient has no complaints. PHYSICAL EXAMINATION: Vital Signs: Reviewed. Blood pressure is mildly elevated 165/71. Physical exam is unchanged. LABS: Blood sugars are elevated to 298 to 314. ASSESSMENT: 1. Diabetes. 2. Adult failure to thrive. 3. Seizures. 4. Advanced dementia. PLAN: Continue symptomatic care until she can transition to long-term care. cc: Ricky Daley MD
[2019-01-21] MEDS: HUMULIN R (PARKWAY) SUBQ SCH ×5 (01:00→17:30)
[2019-01-21] MEDS: SYNTHROID PO SCH (06:48)
[2019-01-21] MEDS: ASPIRIN PO SCH (09:12)
[2019-01-21] MEDS: APRESOLINE PO SCH ×3 (09:12→20:52)
[2019-01-21] MEDS: LASIX PO SCH (09:12)
[2019-01-21] MEDS: NORVASC PO SCH (09:12)
[2019-01-21] MEDS: VIMPAT PO SCH ×3 (09:12→20:52)
[2019-01-21] MEDS: TOPROL XL PO SCH (09:12)
[2019-01-21] MEDS: SEROQUEL PO SCH ×2 (09:12→20:52)
[2019-01-21] MEDS: CULTURELLE FOR KIDS PO SCH ×3 (09:12→20:52)
[2019-01-21] MEDS: LANTUS INSULIN SUBQ SCH (09:14)
--- NOTE | 2019-01-21 19:46 | PROGRESS NOTE ---
DATE: 01/21/2019 SUBJECTIVE: Patient without complaints. OBJECTIVE: Vital Signs: Reviewed. Temperature 97 degrees, pulse 80, respiratory 18, BP elevated at 150/70. Blood sugars elevated at 310 to 400. Physical is unchanged. ASSESSMENT: 1. Diabetes. We will increase her Lantus to 17 units today and back to 15 units tomorrow. We will continue sliding scale. 2. Adult failure to thrive. 3. Seizures. 4. Advanced dementia. 5. Do Not Resuscitate. PLAN: We will continue patient in the hospital until long-term arrangements can be made. cc: Ricky Daley MD
[2019-01-21] MEDS: LIPITOR PO SCH (20:52)
[2019-01-21] MEDS: FLOMAX PO SCH (20:52)
[2019-01-22] MEDS: HUMULIN R (PARKWAY) SUBQ SCH ×5 (01:14→20:06)
[2019-01-22] MEDS: SYNTHROID PO SCH (06:38)
[2019-01-22] MEDS: NORVASC PO SCH (09:35)
[2019-01-22] MEDS: SEROQUEL PO SCH ×2 (09:35→20:02)
[2019-01-22] MEDS: CULTURELLE FOR KIDS PO SCH ×3 (09:35→20:02)
[2019-01-22] MEDS: TOPROL XL PO SCH (09:35)
[2019-01-22] MEDS: LASIX PO SCH (09:35)
[2019-01-22] MEDS: PRINIVIL PO SCH (09:36)
[2019-01-22] MEDS: APRESOLINE PO SCH ×3 (09:36→20:02)
[2019-01-22] MEDS: ASPIRIN PO SCH (09:36)
[2019-01-22] MEDS: VIMPAT PO SCH ×3 (09:36→20:02)
[2019-01-22] MEDS: LANTUS INSULIN SUBQ SCH (10:20)
--- NOTE | 2019-01-22 17:17 | PROGRESS NOTE ---
DATE: 01/22/2019 SUBJECTIVE: Patient without new complaints. Staff denying new complaints either. PHYSICAL EXAMINATION: Temperature 97.5 degrees, pulse 75, respiratory 18, BP 175/75.General: Patient is awake, currently in no distress. Vital Signs: Reviewed. Blood pressure is elevated. Physical exam is unchanged. ASSESSMENT: 1. Hypertension. We will increase her blood pressure control. We will add lisinopril 5 mg. 2. Diabetes. Blood sugars are elevated, although improved from 230 to 345 as stated previously. It is quite difficult to control her blood sugar as she randomly chooses not to eat and then drops her blood sugars down into the 30s and has a seizure. 3. Seizure disorder. 4. Advanced dementia. 5. Do not resuscitate. PLAN: Continue current care until long-term arrangements can be made. cc: Ricky Daley MD
[2019-01-22] MEDS: FLOMAX PO SCH (20:02)
[2019-01-22] MEDS: LIPITOR PO SCH (20:02)
[2019-01-23] MEDS: SYNTHROID PO SCH ×2 (05:54→06:02)
[2019-01-23] MEDS: HUMULIN R (PARKWAY) SUBQ SCH ×4 (06:02→21:26)
[2019-01-23] MEDS: VIMPAT PO SCH ×3 (09:47→21:25)
[2019-01-23] MEDS: TOPROL XL PO SCH (09:48)
[2019-01-23] MEDS: NORVASC PO SCH (09:48)
[2019-01-23] MEDS: APRESOLINE PO SCH ×3 (09:48→21:25)
[2019-01-23] MEDS: SEROQUEL PO SCH ×2 (09:48→21:25)
[2019-01-23] MEDS: CULTURELLE FOR KIDS PO SCH ×3 (09:48→21:25)
[2019-01-23] MEDS: PRINIVIL PO SCH (09:48)
[2019-01-23] MEDS: ASPIRIN PO SCH (09:48)
[2019-01-23] MEDS: LASIX PO SCH (09:48)
[2019-01-23] MEDS: LANTUS INSULIN SUBQ SCH (09:49)
--- NOTE | 2019-01-23 14:52 | PROGRESS NOTE ---
DATE: 01/23/2019 SUBJECTIVE: No complaints. PHYSICAL EXAMINATION: Vital Signs: Reviewed. Temp 97 degrees, pulse 75, BP 175/75. General: Patient is in no distress. She is awake and alert. Physical exam is unchanged. ASSESSMENT: 1. Diabetes with hyperglycemia. We are going to increase her Lantus to 17 units and follow her daily blood sugar patterns. If it continues to stay low, we will decrease it, but currently she has been in the 200 to 400 range. 2. Hypertension. Blood pressures are remaining elevated. We are going to add lisinopril 5 mg. 3. Adult failure to thrive. 4. Seizures. 5. Advanced dementia. 6. DNR. PLAN: We will continue patient in the hospital. Continue to follow. Further orders as needed. cc: Ricky Daley MD
[2019-01-23] MEDS: LIPITOR PO SCH (21:25)
[2019-01-23] MEDS: FLOMAX PO SCH (21:25)
[2019-01-24] MEDS: HUMULIN R (PARKWAY) SUBQ SCH ×4 (06:33→21:36)
[2019-01-24] MEDS: SYNTHROID PO SCH (06:33)
[2019-01-24] MEDS: LASIX PO SCH (09:35)
[2019-01-24] MEDS: SEROQUEL PO SCH ×2 (09:35→21:36)
[2019-01-24] MEDS: VIMPAT PO SCH ×3 (09:35→21:36)
[2019-01-24] MEDS: APRESOLINE PO SCH ×3 (09:35→21:36)
[2019-01-24] MEDS: PRINIVIL PO SCH (09:35)
[2019-01-24] MEDS: NORVASC PO SCH (09:35)
[2019-01-24] MEDS: TOPROL XL PO SCH (09:35)
[2019-01-24] MEDS: CULTURELLE FOR KIDS PO SCH ×3 (09:35→21:36)
[2019-01-24] MEDS: ASPIRIN PO SCH (09:35)
[2019-01-24] MEDS: LANTUS INSULIN SUBQ SCH (09:36)
[2019-01-24] MEDS: LIPITOR PO SCH (21:36)
[2019-01-24] MEDS: FLOMAX PO SCH (21:36)
[2019-01-25] MEDS: SYNTHROID PO SCH ×2 (05:04→06:16)
--- NOTE | 2019-01-25 05:49 | PROGRESS NOTE ---
DATE: 01/24/2019 SUBJECTIVE: No complaints. PHYSICAL EXAMINATION: Vital Signs: Reviewed. Blood pressure 169/72. General: She is in no distress. Physical exam is unchanged. ASSESSMENT: 1. Hypertension. Will continue lisinopril. Will consider increasing it if her blood pressure does not continue to improve. 2. Diabetes. 3. Adult failure to thrive. 4. DO NOT RESUSCITATE. cc: Ricky Daley MD
[2019-01-25] MEDS: HUMULIN R (PARKWAY) SUBQ SCH ×4 (06:19→20:31)
[2019-01-25] MEDS: LASIX PO SCH (08:42)
[2019-01-25] MEDS: NORVASC PO SCH (08:42)
[2019-01-25] MEDS: PRINIVIL PO SCH (08:42)
[2019-01-25] MEDS: ASPIRIN PO SCH (08:42)
[2019-01-25] MEDS: TOPROL XL PO SCH (08:42)
[2019-01-25] MEDS: VIMPAT PO SCH ×3 (08:43→20:31)
[2019-01-25] MEDS: SEROQUEL PO SCH ×2 (08:43→20:31)
[2019-01-25] MEDS: CULTURELLE FOR KIDS PO SCH ×3 (08:44→20:31)
[2019-01-25] MEDS: APRESOLINE PO SCH ×3 (08:44→20:31)
[2019-01-25] MEDS: LANTUS INSULIN SUBQ SCH (09:54)
--- NOTE | 2019-01-25 18:40 | PROGRESS NOTE ---
DATE: 01/25/2019 SUBJECTIVE: Patient seen. No complaints. OBJECTIVE: Vital Signs: Reviewed. Vital signs stable. General: Patient is awake, alert. She is in no distress. She is currently eating breakfast. Blood sugar 153-352. ASSESSMENT: 1. Diabetes. 2. Adult failure to thrive. 3. History of seizures. 4. Advanced dementia. 5. Hypertension. 6. Do Not Resuscitate. PLAN: Continue symptomatic care until further arrangements can be made. cc: Ricky Daley MD
[2019-01-25] MEDS: FLOMAX PO SCH (20:31)
[2019-01-25] MEDS: LIPITOR PO SCH (20:31)
[2019-01-26] MEDS: SYNTHROID PO SCH (06:08)
[2019-01-26] MEDS: HUMULIN R (PARKWAY) SUBQ SCH ×4 (06:08→21:00)
[2019-01-26] MEDS: CULTURELLE FOR KIDS PO SCH ×4 (09:04→20:10)
[2019-01-26] MEDS: TOPROL XL PO SCH (09:04)
[2019-01-26] MEDS: SEROQUEL PO SCH ×3 (09:04→20:11)
[2019-01-26] MEDS: PRINIVIL PO SCH (09:04)
[2019-01-26] MEDS: APRESOLINE PO SCH ×4 (09:04→20:10)
[2019-01-26] MEDS: NORVASC PO SCH (09:05)
[2019-01-26] MEDS: ASPIRIN PO SCH (09:05)
[2019-01-26] MEDS: LASIX PO SCH (09:05)
[2019-01-26] MEDS: VIMPAT PO SCH ×4 (09:05→20:11)
[2019-01-26] MEDS: LANTUS INSULIN SUBQ SCH (10:52)
[2019-01-26] MEDS: TYLENOL PO PRN (17:15)
--- NOTE | 2019-01-26 18:32 | PROGRESS NOTE ---
DATE: 01/26/2019 SUBJECTIVE: Patient has no complaints this morning. She is currently being fed breakfast. OBJECTIVE: Vital signs reviewed. Temperature 98 degrees, pulse 73, respiratory 18, blood pressure better at 145/51. Blood sugars stable 192 to 341. In general, patient is in no distress. Physical exam is unchanged. ASSESSMENT: 1. Diabetes. 2. Hypertension. 3. Seizure disorder. 4. Adult failure to thrive. 5. DNR. PLAN: We will continue patient in hospital until she can transition to long-term care. cc: Ricky Daley MD
[2019-01-26] MEDS: LIPITOR PO SCH ×2 (19:43→20:11)
[2019-01-26] MEDS: FLOMAX PO SCH ×2 (19:44→20:11)
[2019-01-27] MEDS: HUMULIN R (PARKWAY) SUBQ SCH ×4 (06:01→21:48)
[2019-01-27] MEDS: SYNTHROID PO SCH (06:01)
[2019-01-27 08:43] LABS: BASO# 0.03 X1000 (0.0-0.2); BASO% 0.3 % (0.0-0.8); EOS# 0.15 X1000 (0.0-0.7); EOS% 1.5 % (0.0-10.0); HEMATOCRIT 35.9 % (37.0-47.0); HEMOGLOBIN 11.5 g/dL (12.0-16.0); IMM GRAN# 0.02 X1000 (0.0-0.04); IMM GRAN% 0.2 % (0.0-0.5); LYMPH# 1.31 X1000 (1.2-3.4); LYMPH% 13.2 % (20.5-51.1); MCH 26.4 PG (27-31); MCV 82.3 FL (81-99); MONO# 0.51 X1000 (0.11-0.59); MONO% 5.1 % (1.7-9.3); NEUT# 7.94 X1000 (1.4-6.5); NEUT% 79.7 % (42.2-75.2); PLT 144 X1000 (130-400); RBC 4.36 XMIL (4.2-5.4); RDW 20.2 % (11.5-14.5); WBC 9.96 X1000 (4.8-10.8)
[2019-01-27 08:52] LABS: POTASSIUM 4.4 mmol/L (3.5-5.1)
[2019-01-27 08:53] LABS: CALCIUM 8.9 mg/dL (8.8-10.2); CREATININE 0.9 mg/dL (0.5-0.9)
[2019-01-27] MEDS: VIMPAT PO SCH ×3 (10:40→21:48)
[2019-01-27] MEDS: ASPIRIN PO SCH (10:40)
[2019-01-27] MEDS: CULTURELLE FOR KIDS PO SCH ×3 (10:40→21:48)
[2019-01-27] MEDS: NORVASC PO SCH (10:41)
[2019-01-27] MEDS: TOPROL XL PO SCH (10:41)
[2019-01-27] MEDS: LANTUS INSULIN SUBQ SCH (10:41)
[2019-01-27] MEDS: LASIX PO SCH (10:41)
[2019-01-27] MEDS: SEROQUEL PO SCH ×2 (10:41→21:48)
[2019-01-27] MEDS: PRINIVIL PO SCH (11:50)
[2019-01-27] MEDS: APRESOLINE PO SCH ×3 (11:50→21:48)
--- NOTE | 2019-01-27 18:57 | PROGRESS NOTE ---
DATE: 01/27/2019 SUBJECTIVE: Patient seen. She has no complaints. She is very vocal today. She appears to be back to her baseline. OBJECTIVE: Vital signs reviewed. Blood pressures have been low, occasionally 106 but currently back in the 140s. She is afebrile. Vital signs otherwise are stable. LABORATORY DATA: Blood sugars stable, 140s to 300. Urine culture is currently pending. Labs thus far have been negative. ASSESSMENT: 1. Diabetes. 2. Adult failure to thrive. 3. Seizure. 4. Advanced dementia. 5. Hypertension. Blood pressure has been better with the addition of lisinopril. cc: Ricky Daley MD
[2019-01-27] MEDS: FLOMAX PO SCH (21:48)
[2019-01-27] MEDS: LIPITOR PO SCH (21:49)
[2019-01-28] MEDS: HUMULIN R (PARKWAY) SUBQ SCH ×4 (06:19→23:35)
[2019-01-28] MEDS: SYNTHROID PO SCH (06:20)
[2019-01-28] MEDS: MERREM 1 GM in NS 50 ML IV SCH ×2 (09:49→14:33)
[2019-01-28] MEDS: TOPROL XL PO SCH (09:50)
[2019-01-28] MEDS: ASPIRIN PO SCH (09:50)
[2019-01-28] MEDS: NORVASC PO SCH (09:50)
[2019-01-28] MEDS: SEROQUEL PO SCH ×2 (09:50→23:36)
[2019-01-28] MEDS: LANTUS INSULIN SUBQ SCH (09:50)
[2019-01-28] MEDS: PRINIVIL PO SCH (09:50)
[2019-01-28] MEDS: VIMPAT PO SCH ×3 (09:50→23:36)
[2019-01-28] MEDS: LASIX PO SCH (09:50)
[2019-01-28] MEDS: CULTURELLE FOR KIDS PO SCH ×3 (09:50→23:35)
[2019-01-28] MEDS: APRESOLINE PO SCH ×3 (09:50→23:35)
--- NOTE | 2019-01-28 18:49 | PROGRESS NOTE ---
DATE: 01/28/2019 SUBJECTIVE: No complaints. PHYSICAL EXAMINATION: Vital Signs: Reviewed. No complaints. Physical exam is unchanged. The patient appears more close to her baseline today than she did yesterday. Blood sugars elevated 200 to 400. ASSESSMENT: 1. Klebsiella urinary tract infection. At this point we are going to stop Merrem. Her last 2 UTIs had ESBL positive E. coli. This thankfully has Klebsiella. We are going to switch her to Levaquin. 2. Diabetes. 3. Hypertension. 4. Adult failure to thrive. cc: Ricky Daley MD
[2019-01-28] MEDS: LEVAQUIN PO SCH (23:35)
[2019-01-28] MEDS: FLOMAX PO SCH (23:35)
[2019-01-28] MEDS: LIPITOR PO SCH (23:36)
[2019-01-29] MEDS: SYNTHROID PO SCH (06:36)
[2019-01-29] MEDS: HUMULIN R (PARKWAY) SUBQ SCH ×4 (06:36→20:47)
[2019-01-29] MEDS: VIMPAT PO SCH ×4 (09:50→20:48)
[2019-01-29] MEDS: NORVASC PO SCH (09:51)
[2019-01-29] MEDS: SEROQUEL PO SCH ×3 (09:51→20:48)
[2019-01-29] MEDS: TOPROL XL PO SCH (09:51)
[2019-01-29] MEDS: LASIX PO SCH (09:51)
[2019-01-29] MEDS: APRESOLINE PO SCH ×4 (09:51→20:47)
[2019-01-29] MEDS: LEVAQUIN PO SCH (09:51)
[2019-01-29] MEDS: PRINIVIL PO SCH (09:51)
[2019-01-29] MEDS: CULTURELLE FOR KIDS PO SCH ×4 (09:51→20:47)
[2019-01-29] MEDS: LANTUS INSULIN SUBQ SCH (09:51)
[2019-01-29] MEDS: ASPIRIN PO SCH (09:51)
[2019-01-29] MEDS: LIPITOR PO SCH ×2 (19:37→20:48)
[2019-01-29] MEDS: FLOMAX PO SCH ×2 (19:37→20:47)
--- NOTE | 2019-01-30 00:51 | PROGRESS NOTE ---
DATE: 01/29/2019 SUBJECTIVE: Patient seen and examined. No changes subjective. PHYSICAL EXAMINATION: Vital Signs: Reviewed. Temperature 98 degrees, pulse 81, BP elevated to 182/75. General: She is awake, alert. She appears back to her usual self. She is in no distress. Blood sugars are elevated but stable for her. ASSESSMENT: 1. Klebsiella urinary tract infection. We will stop Merrem and start Levaquin. 2. Diabetes. 3. Adult failure to thrive. 4. Hypertension. 5. Seizures. 6. Advanced dementia. PLAN: Continue patient in the hospital. Continue antibiotics and we will follow. cc: iRcky Daley MD
[2019-01-30] MEDS: HUMULIN R (PARKWAY) SUBQ SCH ×4 (06:13→20:05)
[2019-01-30] MEDS: SYNTHROID PO SCH (06:13)
[2019-01-30] MEDS: PRINIVIL PO SCH (10:09)
[2019-01-30] MEDS: TOPROL XL PO SCH (10:09)
[2019-01-30] MEDS: CULTURELLE FOR KIDS PO SCH ×3 (10:09→20:04)
[2019-01-30] MEDS: APRESOLINE PO SCH ×3 (10:09→20:05)
[2019-01-30] MEDS: ASPIRIN PO SCH (10:09)
[2019-01-30] MEDS: LEVAQUIN PO SCH (10:09)
[2019-01-30] MEDS: SEROQUEL PO SCH ×2 (10:09→20:04)
[2019-01-30] MEDS: NORVASC PO SCH (10:09)
[2019-01-30] MEDS: VIMPAT PO SCH ×3 (10:10→20:04)
[2019-01-30] MEDS: LASIX PO SCH (10:10)
[2019-01-30] MEDS: LANTUS INSULIN SUBQ SCH (10:11)
--- NOTE | 2019-01-30 18:06 | PROGRESS NOTE ---
DATE: 01/30/2019 SUBJECTIVE: No complaints. PHYSICAL EXAMINATION: Vital Signs: Reviewed. Blood pressure is elevated at 170/69. general: She is awake, alert. She is in no distress. Physical is unchanged. LABORATORIES: Blood sugars also elevated at 165 to current 392. ASSESSMENT: 1. Klebsiella urinary tract infection. 2. Hypertension. Blood pressures had been better. They are starting to climb up. We are going to consider increasing her lisinopril to 10 mg. 3. Diabetes with hyperglycemia. Her blood sugars are very sporadic. It depends on how much she actually eats. 4. Adult failure to thrive. 5. Dementia. PLAN: Continue to follow. Continue symptomatic treatment. We will continue antibiotics for now. Await the opportunity to be transitional. cc: Ricky Daley MD
--- NOTE | 2019-01-30 18:26 | EKG Report ---
Test Performed on : 01/30/2019 4:20:58 PM Test Reason : CP Blood Pressure : / mmHG Vent. Rate : 075 BPM Atrial Rate : 075 BPM P-R Int : 162 ms QRS Dur : 096 ms QT Int : 408 ms P-R-T Axes : 070 -48 098 degrees QTc Int : 455 ms Normal sinus rhythm. Left axis deviation Abnormal QRS-T angle, consider primary T wave abnormality Abnormal ECG When compared with ECG of 13-OCT-2018 15:19, No significant change was found Confirmed by Caio SHARMA, Duong ([id number]), legal editor Linda Marquis ([id number]) on 07/19/2019 12:31:10 PM
[2019-01-30] MEDS: LIPITOR PO SCH (20:05)
[2019-01-30] MEDS: FLOMAX PO SCH (20:05)
[2019-01-31] MEDS: HUMULIN R (PARKWAY) SUBQ SCH ×3 (06:13→22:01)
[2019-01-31] MEDS: SYNTHROID PO SCH (06:13)
[2019-01-31] MEDS: CULTURELLE FOR KIDS PO SCH ×3 (08:51→22:00)
[2019-01-31] MEDS: ASPIRIN PO SCH (08:51)
[2019-01-31] MEDS: NORVASC PO SCH (08:51)
[2019-01-31] MEDS: LEVAQUIN PO SCH (08:51)
[2019-01-31] MEDS: APRESOLINE PO SCH ×3 (08:52→22:00)
[2019-01-31] MEDS: LANTUS INSULIN SUBQ SCH (08:52)
[2019-01-31] MEDS: SEROQUEL PO SCH ×2 (08:52→22:01)
[2019-01-31] MEDS: PRINIVIL PO SCH (08:52)
[2019-01-31] MEDS: LASIX PO SCH (08:52)
[2019-01-31] MEDS: TOPROL XL PO SCH (08:52)
[2019-01-31] MEDS: VIMPAT PO SCH ×3 (08:52→22:01)
[2019-01-31] MEDS: FLOMAX PO SCH (22:00)
[2019-01-31] MEDS: LIPITOR PO SCH (22:01)
[2019-02-01] MEDS: HUMULIN R (PARKWAY) SUBQ SCH ×5 (06:41→22:31)
[2019-02-01] MEDS: SYNTHROID PO SCH (06:41)
[2019-02-01] MEDS: PRINIVIL PO SCH (09:13)
[2019-02-01] MEDS: NORVASC PO SCH (09:14)
[2019-02-01] MEDS: TOPROL XL PO SCH (09:14)
[2019-02-01] MEDS: CULTURELLE FOR KIDS PO SCH ×3 (09:14→20:05)
[2019-02-01] MEDS: VIMPAT PO SCH ×3 (09:14→20:05)
[2019-02-01] MEDS: ASPIRIN PO SCH (09:14)
[2019-02-01] MEDS: LEVAQUIN PO SCH (09:14)
[2019-02-01] MEDS: APRESOLINE PO SCH ×3 (09:14→20:05)
[2019-02-01] MEDS: SEROQUEL PO SCH ×2 (09:14→20:05)
[2019-02-01] MEDS: LASIX PO SCH (09:14)
--- NOTE | 2019-02-01 09:28 | PROGRESS NOTE ---
DATE: 01/31/2019 SUBJECTIVE: The patient was seen. She has no complaints. PHYSICAL EXAMINATION: Vital Signs: Reviewed. Temperature 97.4 degrees, pulse 73, respiratory rate 18, BP 132/64. General: The patient is awake, alert. She is in no distress. Her blood sugars actually were low yesterday, from 70 to 201. Physical exam is unchanged. ASSESSMENT: 1. Klebsiella urinary tract infection. Continue antibiotics. 2. Diabetes, extremely difficult to control given her sporadic eating. For 3 days, her blood sugars have been upper 200s to 400s and then yesterday, she dropped to 71 without any medication changes but with significant dietary changes due to her dementia. 3. Dementia. 4. Hypertension. cc: Ricky Daley MD
[2019-02-01] MEDS: FLOMAX PO SCH (20:05)
[2019-02-01] MEDS: LIPITOR PO SCH (20:05)
[2019-02-02] MEDS: SYNTHROID PO SCH ×2 (05:04→06:03)
[2019-02-02] MEDS: HUMULIN R (PARKWAY) SUBQ SCH ×4 (06:02→21:39)
--- NOTE | 2019-02-02 08:28 | PROGRESS NOTE ---
DATE: 02/01/2019 SUBJECTIVE: Patient is seen. She is in no distress. OBJECTIVE: Vital signs reviewed. Blood pressure elevated 130s to 160s systolic. Blood sugars have started creeping back up to 200s to 400s. Physical exam is unchanged. ASSESSMENT: 1. Diabetes with poor control. Patient eats very sporadically, which makes her blood sugars go up and come back down very quickly. 2. Hypertension. We are going to continue her on her lisinopril. 3. History of seizure disorder. 4. Adult failure to thrive. 5. Do Not Resuscitate. cc: Ricky Daley MD
[2019-02-02] MEDS: LASIX PO SCH (09:40)
[2019-02-02] MEDS: ASPIRIN PO SCH (09:40)
[2019-02-02] MEDS: LEVAQUIN PO SCH (09:40)
[2019-02-02] MEDS: VIMPAT PO SCH ×4 (09:40→21:38)
[2019-02-02] MEDS: NORVASC PO SCH (09:40)
[2019-02-02] MEDS: APRESOLINE PO SCH ×4 (09:40→21:38)
[2019-02-02] MEDS: TOPROL XL PO SCH (09:40)
[2019-02-02] MEDS: CULTURELLE FOR KIDS PO SCH ×4 (09:40→21:39)
[2019-02-02] MEDS: PRINIVIL PO SCH (09:41)
[2019-02-02] MEDS: SEROQUEL PO SCH ×3 (09:41→21:38)
--- NOTE | 2019-02-02 15:44 | PROGRESS NOTE ---
DATE: 02/02/2019 SUBJECTIVE: Patient seen without new complaints. PHYSICAL EXAMINATION: Vital Signs: Reviewed. Temp 97.5 degrees, pulse 76, BP good 126/56. Blood sugar is elevated at 200s to 400s. Physical is unchanged. ASSESSMENT: 1. Klebsiella urinary tract infection. Continue antibiotics. 2. Diabetes. We are going to attempt to change her Lantus slightly to 10 units in the a.m. and 10 units in the p.m. if she eats and if her blood sugars are above 100. Hopefully this will allow us to increase her insulin without causing such lows when she refuses to eat in the afternoon. 3. Adult failure to thrive. 4. Seizure disorder. 5. Advanced dementia. 6. Hypertension. cc: Ricky Daley MD
[2019-02-02] MEDS: FLOMAX PO SCH ×2 (19:47→21:39)
[2019-02-02] MEDS: LIPITOR PO SCH ×2 (19:47→21:38)
[2019-02-03] MEDS: SYNTHROID PO SCH (06:04)
[2019-02-03] MEDS: HUMULIN R (PARKWAY) SUBQ SCH ×4 (06:45→21:19)
[2019-02-03] MEDS: TOPROL XL PO SCH (10:12)
[2019-02-03] MEDS: APRESOLINE PO SCH ×3 (10:12→21:19)
[2019-02-03] MEDS: PRINIVIL PO SCH (10:12)
[2019-02-03] MEDS: LEVAQUIN PO SCH (10:12)
[2019-02-03] MEDS: NORVASC PO SCH (10:12)
[2019-02-03] MEDS: SEROQUEL PO SCH ×2 (10:13→21:19)
[2019-02-03] MEDS: VIMPAT PO SCH ×3 (10:13→21:19)
[2019-02-03] MEDS: LANTUS INSULIN SUBQ SCH ×2 (10:13→21:19)
[2019-02-03] MEDS: LASIX PO SCH (10:13)
[2019-02-03] MEDS: ASPIRIN PO SCH (10:18)
[2019-02-03] MEDS: CULTURELLE FOR KIDS PO SCH ×3 (10:18→21:19)
--- NOTE | 2019-02-03 19:18 | PROGRESS NOTE ---
DATE: 02/03/2019 SUBJECTIVE: Patient with no complaints. OBJECTIVE: Vital Signs reviewed. She is afebrile. Temperature 97.9 degrees, pulse 80, BP 156/60. Physical exam is unchanged. Blood sugars are a little bit better at 134 but also as high as 400. ASSESSMENT: 1. Diabetes. We are going to attempt to change her blood sugar medications. I am going to use Lantus in the morning and at night. We are going to hold her night dose if her blood sugars are in the low 100s during the day or if she refuses to eat during the day. Hopefully, this will allow a little bit better control without as many low hypoglycemic episodes that she has been having. 2. Hypertension. 3. Adult failure to thrive. 4. Seizures. 5. Advanced dementia. cc: Ricky Daley MD
[2019-02-03] MEDS: FLOMAX PO SCH (21:19)
[2019-02-03] MEDS: LIPITOR PO SCH (21:19)
[2019-02-04] MEDS: HUMULIN R (PARKWAY) SUBQ SCH ×4 (06:16→20:37)
[2019-02-04] MEDS: SYNTHROID PO SCH (06:16)
[2019-02-04] MEDS: LANTUS INSULIN SUBQ SCH ×2 (09:54→20:38)
[2019-02-04] MEDS: APRESOLINE PO SCH ×3 (09:55→20:36)
[2019-02-04] MEDS: SEROQUEL PO SCH ×2 (09:55→20:36)
[2019-02-04] MEDS: LASIX PO SCH (09:55)
[2019-02-04] MEDS: LEVAQUIN PO SCH (09:55)
[2019-02-04] MEDS: PRINIVIL PO SCH (09:55)
[2019-02-04] MEDS: CULTURELLE FOR KIDS PO SCH ×3 (09:55→20:37)
[2019-02-04] MEDS: ASPIRIN PO SCH (09:55)
[2019-02-04] MEDS: TOPROL XL PO SCH (09:55)
[2019-02-04] MEDS: VIMPAT PO SCH ×3 (09:55→20:36)
[2019-02-04] MEDS: NORVASC PO SCH (09:55)
[2019-02-04] MEDS: FLOMAX PO SCH (20:36)
[2019-02-04] MEDS: LIPITOR PO SCH (20:36)
--- NOTE | 2019-02-04 21:46 | PROGRESS NOTE ---
DATE: 02/03/2019 SUBJECTIVE: Patient currently has no complaints. PHYSICAL EXAMINATION: Vital Signs: Reviewed. Temp 97.6 degrees, pulse 80, respiratory rate 18, BP 152/91. General: Patient's physical exam is unchanged. LABORATORIES: Blood sugars appear slightly improved. ASSESSMENT: 1. Diabetes. 2. Adult failure to thrive. 3. Seizure disorder. 4. Urinary tract infection with Klebsiella. Repeat culture is pending. cc: Ricky Daley MD
[2019-02-05] MEDS: HUMULIN R (PARKWAY) SUBQ SCH ×4 (06:02→20:25)
[2019-02-05] MEDS: SYNTHROID PO SCH (06:03)
[2019-02-05] MEDS: TOPROL XL PO SCH (08:53)
[2019-02-05] MEDS: LEVAQUIN PO SCH (08:53)
[2019-02-05] MEDS: ASPIRIN PO SCH (08:53)
[2019-02-05] MEDS: VIMPAT PO SCH ×3 (08:53→20:24)
[2019-02-05] MEDS: NORVASC PO SCH (08:53)
[2019-02-05] MEDS: CULTURELLE FOR KIDS PO SCH ×3 (08:53→20:24)
[2019-02-05] MEDS: LASIX PO SCH (08:54)
[2019-02-05] MEDS: PRINIVIL PO SCH (08:54)
[2019-02-05] MEDS: SEROQUEL PO SCH ×2 (08:54→20:24)
[2019-02-05] MEDS: APRESOLINE PO SCH ×3 (08:54→20:24)
[2019-02-05] MEDS: LANTUS INSULIN SUBQ SCH ×2 (08:55→20:25)
[2019-02-05] MEDS: DIFLUCAN PO SCH (09:22)
--- NOTE | 2019-02-05 15:54 | PROGRESS NOTE ---
DATE: 02/05/2019 SUBJECTIVE: No complaints. PHYSICAL EXAMINATION: Vital Signs: Reviewed. Blood pressure is stable in the 140s to 150s. Physical exam is unchanged. LABORATORY DATA: Blood sugars actually are improved in the 80s to the low 200s since adjusting her insulin. ASSESSMENT: 1. Diabetes. 2. Urinary tract infection with Klebsiella. Currently, her recent culture is negative and she only has yeast. We are going to stop antibiotics and use Diflucan. 3. Hypertension. 4. Advanced dementia. PLAN: We will continue the patient's current care. Continue to follow. We will continue her insulin in the morning and at night if she eats. cc: Ricky Daley MD
[2019-02-05] MEDS: LIPITOR PO SCH (20:24)
[2019-02-05] MEDS: FLOMAX PO SCH (20:24)
[2019-02-06] MEDS: SYNTHROID PO SCH ×2 (06:03→10:16)
[2019-02-06] MEDS: HUMULIN R (PARKWAY) SUBQ SCH ×4 (06:03→19:02)
--- NOTE | 2019-02-06 10:02 | PROGRESS NOTE ---
DATE: 02/06/2019 SUBJECTIVE: Patient appears to be in a good mood today and has not been in any acute distress. OBJECTIVE: Vital Signs: Temperature 96.9 degrees, pulse 74 per minute, respiratory rate 18 per minute, blood pressure 159/77, pulse oximetry 96% on room air. General: The patient is awake and alert. She does not appear to be in any acute distress. Cardiovascular System: First and second heart sounds are audible without any murmurs or gallops. Respiratory System: No respiratory distress noted. Bilateral lung air entry is good without any rales or rhonchi. Gastrointestinal System: Patient is having no abdominal tenderness or masses palpable. Normal bowel sounds are present. IMPRESSION: 1. Type 2 diabetes mellitus. 2. Hypertension. 3. Seizure disorder. 4. Dyslipidemia. 5. Senile dementia. 6. Social neglect. PLAN: The patient will remain here at [facility] and we will continue with current care. I am going to obtain repeat labs including CBC, CMP, and hemoglobin A1c today. Overall, her condition has remained stable but she has not been able to be transferred to outside facility because of social issues. cc: Hernan Morelos MD
[2019-02-06] MEDS: PRINIVIL PO SCH (10:14)
[2019-02-06] MEDS: LASIX PO SCH (10:14)
[2019-02-06] MEDS: CULTURELLE FOR KIDS PO SCH ×3 (10:15→20:13)
[2019-02-06] MEDS: ASPIRIN PO SCH (10:15)
[2019-02-06] MEDS: NORVASC PO SCH (10:15)
[2019-02-06] MEDS: VIMPAT PO SCH ×3 (10:15→20:13)
[2019-02-06] MEDS: SEROQUEL PO SCH ×2 (10:15→20:13)
[2019-02-06] MEDS: APRESOLINE PO SCH ×3 (10:15→20:13)
[2019-02-06] MEDS: TOPROL XL PO SCH (10:15)
[2019-02-06] MEDS: DIFLUCAN PO SCH (10:16)
[2019-02-06] MEDS: LANTUS INSULIN SUBQ SCH (10:16)
[2019-02-06] MEDS: LIPITOR PO SCH (20:13)
[2019-02-06] MEDS: FLOMAX PO SCH (20:13)
[2019-02-07] MEDS: HUMULIN R (PARKWAY) SUBQ SCH ×5 (00:31→20:48)
[2019-02-07] MEDS: SYNTHROID PO SCH (06:01)
[2019-02-07 06:50] LABS: BASO# 0.02 X1000 (0.0-0.2); BASO% 0.3 % (0.0-0.8); EOS# 0.05 X1000 (0.0-0.7); EOS% 0.7 % (0.0-10.0); HEMATOCRIT 31.6 % (37.0-47.0); HEMOGLOBIN 9.9 g/dL (12.0-16.0); IMM GRAN# 0.02 X1000 (0.0-0.04); IMM GRAN% 0.3 % (0.0-0.5); LYMPH# 0.92 X1000 (1.2-3.4); LYMPH% 13.7 % (20.5-51.1); MCH 25.3 PG (27-31); MCHC 31.3 g/dL (33-37); MCV 80.8 FL (81-99); MONO# 0.61 X1000 (0.11-0.59); MONO% 9.1 % (1.7-9.3); MPV 11.3 FL (7.4-10.4); NEUT# 5.11 X1000 (1.4-6.5); NEUT% 75.9 % (42.2-75.2); PLT 281 X1000 (130-400); RBC 3.91 XMIL (4.2-5.4); RDW 18.9 % (11.5-14.5); WBC 6.73 X1000 (4.8-10.8)
[2019-02-07 07:15] LABS: HEMOGLOBIN A1C 8.8 % (4.8-6.0)
[2019-02-07 07:21] LABS: AGAP 10; CHLORIDE 108 mmol/L (98-107); GLUCOSE 337 mg/dL (70-104); POTASSIUM 3.7 mmol/L (3.5-5.1); SODIUM 145 mmol/L (136-145); TCO2 27 mmol/L (25-35)
[2019-02-07 07:22] LABS: ALBUMIN 3.3 g/dL (3.5-5.0); ALKALINE PHOSPHATASE 128 U/L (32-104); BUN 20 mg/dL (8-22); CALCIUM 8.8 mg/dL (8.8-10.2); COSMO 305; CREATININE 0.7 mg/dL (0.5-0.9); ESTIMATED GFR > 60; GOT 13 U/L (10-30); GPT 18 U/L (10-36); TOTAL PROTEIN 6.5 g/dL (6.3-8.3)
[2019-02-07] MEDS: TOPROL XL PO SCH (10:07)
[2019-02-07] MEDS: APRESOLINE PO SCH ×3 (10:07→20:47)
[2019-02-07] MEDS: SEROQUEL PO SCH ×2 (10:07→20:47)
[2019-02-07] MEDS: DIFLUCAN PO SCH (10:07)
[2019-02-07] MEDS: PRINIVIL PO SCH (10:07)
[2019-02-07] MEDS: ASPIRIN PO SCH (10:07)
[2019-02-07] MEDS: NORVASC PO SCH (10:08)
[2019-02-07] MEDS: LASIX PO SCH (10:08)
[2019-02-07] MEDS: VIMPAT PO SCH ×3 (10:08→20:47)
[2019-02-07] MEDS: CULTURELLE FOR KIDS PO SCH ×3 (10:08→20:47)
[2019-02-07] MEDS: LANTUS INSULIN SUBQ SCH ×2 (10:08→20:48)
[2019-02-07] MEDS: LIPITOR PO SCH (20:47)
[2019-02-07] MEDS: FLOMAX PO SCH (20:47)
[2019-02-08] MEDS: HUMULIN R (PARKWAY) SUBQ SCH ×4 (06:28→21:42)
[2019-02-08] MEDS: SYNTHROID PO SCH (06:29)
--- NOTE | 2019-02-08 08:33 | PROGRESS NOTE ---
DATE: 02/07/2019 SUBJECTIVE: Patient appears to be in stable condition and no acute reports are given today, this morning. OBJECTIVE: Vital Signs: Temperature 98.5 degrees, pulse 81 per minute, respiratory rate 14 per minute, blood pressure 124/57, pulse oximetry 99% on room air. General: Patient is alert and awake. She does not appear to be in any acute distress. Cardiovascular System: First and second heart sounds are audible without any murmurs or gallops. Respiratory System: No respiratory distress noted. Bilateral lung air entry is good without any rales or rhonchi. Gastrointestinal System: Abdomen is benign. Diagnostic Data: CBC showed hemoglobin of 9.9 and hematocrit 31.6. Rest of the CBC is nondiagnostic. Chemistry showed glucose level of 337. Rest of the comprehensive metabolic panel is nondiagnostic. Hemoglobin A1c was noted to be elevated at 8.8%. IMPRESSION: 1. Type 2 diabetes mellitus, that is uncontrolled. 2. Hypertension. 3. Seizure disorder. 4. Dyslipidemia. 5. Mild dementia. 6. Social neglect. PLAN: I am going to increase the dose of Lantus insulin to 15 units subcutaneously every 12 hours and continue with the rest of the medications including regular insulin as per sliding scale, atorvastatin 40 mg a day, amlodipine 10 mg a day, hydralazine 50 mg 3 times a day, and lisinopril 10 mg a day. She will also continue with metoprolol 50 mg once daily and would continue with supportive care. cc: Hernan Morelos MD
[2019-02-08] MEDS: APRESOLINE PO SCH ×3 (10:38→21:42)
[2019-02-08] MEDS: VIMPAT PO SCH ×3 (10:38→21:43)
[2019-02-08] MEDS: NORVASC PO SCH (10:38)
[2019-02-08] MEDS: DIFLUCAN PO SCH (10:38)
[2019-02-08] MEDS: PRINIVIL PO SCH (10:38)
[2019-02-08] MEDS: LASIX PO SCH (10:39)
[2019-02-08] MEDS: TOPROL XL PO SCH (10:39)
[2019-02-08] MEDS: CULTURELLE FOR KIDS PO SCH ×3 (10:39→21:42)
[2019-02-08] MEDS: ASPIRIN PO SCH (10:39)
[2019-02-08] MEDS: LANTUS INSULIN SUBQ SCH ×2 (10:39→21:43)
[2019-02-08] MEDS: SEROQUEL PO SCH ×2 (10:39→21:43)
--- NOTE | 2019-02-08 18:59 | PROGRESS NOTE ---
DATE: 02/08/2019 SUBJECTIVE: No complaints. PHYSICAL EXAMINATION: Vital Signs: Unchanged. Blood pressures are still elevated at times, currently 130s to 160s. Blood sugars are still quite erratic from the 80s to 400s. ASSESSMENT: 1. Diabetes. We have adjusted her Lantus to see if this would help with some of her blood sugars. Unfortunately, she frequently chooses not to eat after having already been given Lantus and therefore her blood sugars drop. We have adjusted to giving her half her dose in the morning and a half at night, holding it if her blood sugars have been in the low 100s or if she has refused to eat during the day. 2. Hypertension. 3. Adult failure to thrive. 4. Recent urinary tract infection with Klebsiella. Urine culture is negative currently with exception of yeast. She is on Diflucan and should finish this on Friday. cc: Ricky Daley MD
[2019-02-08] MEDS: FLOMAX PO SCH (21:42)
[2019-02-08] MEDS: LIPITOR PO SCH (21:43)
[2019-02-09] MEDS: SYNTHROID PO SCH (06:10)
[2019-02-09] MEDS: HUMULIN R (PARKWAY) SUBQ SCH ×4 (06:12→20:06)
[2019-02-09] MEDS: LASIX PO SCH (08:47)
[2019-02-09] MEDS: NORVASC PO SCH (08:47)
[2019-02-09] MEDS: CULTURELLE FOR KIDS PO SCH ×3 (08:47→20:06)
[2019-02-09] MEDS: PRINIVIL PO SCH (08:47)
[2019-02-09] MEDS: ASPIRIN PO SCH (08:47)
[2019-02-09] MEDS: DIFLUCAN PO SCH (08:47)
[2019-02-09] MEDS: TOPROL XL PO SCH (08:47)
[2019-02-09] MEDS: APRESOLINE PO SCH ×3 (08:47→20:06)
[2019-02-09] MEDS: VIMPAT PO SCH ×3 (08:48→20:06)
[2019-02-09] MEDS: LANTUS INSULIN SUBQ SCH ×2 (08:48→20:05)
[2019-02-09] MEDS: SEROQUEL PO SCH ×2 (08:48→20:06)
--- NOTE | 2019-02-09 14:44 | PROGRESS NOTE ---
DATE: 02/09/2019 SUBJECTIVE: The patient is nonverbal to me. No issues according to nursing staff overnight. OBJECTIVE: Vital Signs: Temperature 98.7 degrees, heart rate 65, respiratory rate 20, blood pressure 137/64, O2 saturation 100% on room air. General: This is a chronically ill-looking, 83- year-old, female, lying in bed in no acute distress. Cardiovascular: S1, S2 heard. No murmurs, gallops, or rubs. Regular rate and rhythm. Respiratory: Minimal coarse breath sounds noted in both pulmonary bases. The patient is not using any accessory muscles or having work of breathing. Neurological: The patient is awake, but nonverbal. Move all 4 extremities spontaneously. ASSESSMENT AND PLAN: 1. Diabetes mellitus type 2. As we mentioned in previous notes, it is difficult to control because sometimes the patient decides not to eat, and once she receives Lantus, blood sugar started dropping. I think the best thing that we can do is to continue with small doses of Lantus split twice daily and sliding scale insulin. 2. Hypertension. Will continue home medications. 3. Adult failure to thrive. Aware. 4. Disposition. Awaiting placement for this patient. cc: Onur Parada MD
[2019-02-09] MEDS: LIPITOR PO SCH (20:06)
[2019-02-09] MEDS: FLOMAX PO SCH (20:06)
[2019-02-10] MEDS: HUMULIN R (PARKWAY) SUBQ SCH ×4 (06:25→16:55)
[2019-02-10] MEDS: SYNTHROID PO SCH (06:35)
[2019-02-10] MEDS: SEROQUEL PO SCH ×2 (08:00→20:35)
[2019-02-10] MEDS: PRINIVIL PO SCH (08:00)
[2019-02-10] MEDS: TOPROL XL PO SCH (08:00)
[2019-02-10] MEDS: CULTURELLE FOR KIDS PO SCH ×3 (08:00→20:35)
[2019-02-10] MEDS: APRESOLINE PO SCH ×3 (08:00→20:36)
[2019-02-10] MEDS: LASIX PO SCH (08:00)
[2019-02-10] MEDS: NORVASC PO SCH (08:00)
[2019-02-10] MEDS: VIMPAT PO SCH ×3 (08:00→20:35)
[2019-02-10] MEDS: DIFLUCAN PO SCH (08:00)
[2019-02-10] MEDS: ASPIRIN PO SCH (08:00)
[2019-02-10] MEDS: LANTUS INSULIN SUBQ SCH ×2 (08:01→20:47)
--- NOTE | 2019-02-10 12:29 | PROGRESS NOTE ---
DATE: 02/10/2019 SUBJECTIVE: Patient is nonverbal. No acute issues noted as per nursing staff overnight. OBJECTIVE: Vital Signs: Temperature 98.9 degrees, heart rate 68, respiratory rate 19 and blood pressure 142/69, and O2 saturation of 100% on room air. General: This is a chronically ill appearing 83-year-old female lying in bed in no acute distress. Cardiovascular: S1 and S2 heard. No murmurs, gallops, or rubs. Respiratory: Coarse breath sounds noted in both pulmonary bases. Neurological: Patient is awake, but nonverbal. Moves all 4 extremities spontaneously. ASSESSMENT AND PLAN: 1. Diabetes mellitus type 2. We will continue with sliding scale insulin and Accu-Chek before meals, and also at bedtime. 2. Hypertension. We will continue home medications. 3. Adult failure to thrive. Aware. 4. Disposition. We will continue to await placement for this patient. cc: Onur Parada MD
[2019-02-10] MEDS: FLOMAX PO SCH (20:35)
[2019-02-10] MEDS: LIPITOR PO SCH (20:35)
[2019-02-11] MEDS: HUMULIN R (PARKWAY) SUBQ SCH ×5 (06:26→20:01)
[2019-02-11] MEDS: SYNTHROID PO SCH ×2 (06:28→10:05)
[2019-02-11] MEDS: LANTUS INSULIN SUBQ SCH ×2 (10:01→20:00)
[2019-02-11] MEDS: SEROQUEL PO SCH ×2 (10:02→20:00)
[2019-02-11] MEDS: CULTURELLE FOR KIDS PO SCH ×3 (10:03→20:01)
[2019-02-11] MEDS: ASPIRIN PO SCH (10:03)
[2019-02-11] MEDS: VIMPAT PO SCH ×3 (10:03→20:00)
[2019-02-11] MEDS: PRINIVIL PO SCH (10:03)
[2019-02-11] MEDS: LASIX PO SCH (10:03)
[2019-02-11] MEDS: APRESOLINE PO SCH ×3 (10:05→20:01)
[2019-02-11] MEDS: TOPROL XL PO SCH (10:05)
[2019-02-11] MEDS: NORVASC PO SCH (10:05)
[2019-02-11] MEDS: DIFLUCAN PO SCH (10:05)
--- NOTE | 2019-02-11 11:20 | PROGRESS NOTE ---
DATE: 02/11/2019 SUBJECTIVE: No changes in the last 24 hours according to nursing staff. She remains nonverbal to me. OBJECTIVE: Vital Signs: Temperature 97.8 degrees, heart rate 72, respiratory rate 18, blood pressure 152/62, O2 saturation 100% on room air. General: This is a chronically ill-appearing, 83-year-old female, lying in bed in no acute distress. Cardiovascular: S1, S2 heard. No murmurs, gallops, or rubs. Regular rate and rhythm. Respiratory: Minimal coarse breath sounds noted in both pulmonary bases. Neurological: Patient is awake but nonverbal. Sometimes she mumbles some unintelligible words. Moves 4 extremities spontaneously. ASSESSMENT AND PLAN: 1. Diabetes mellitus type 2. We will continue with sliding scale insulin and Accu-Chek before meals and also at bedtime. 2. Hypertension. We will continue home medications. 3. Adult failure to thrive. Aware. 4. Disposition. We will continue to await placement for this patient. cc: Onur Parada MD
[2019-02-11] MEDS: FLOMAX PO SCH (20:00)
[2019-02-11] MEDS: LIPITOR PO SCH (20:00)
[2019-02-12] MEDS: HUMULIN R (PARKWAY) SUBQ SCH ×4 (06:16→20:56)
[2019-02-12] MEDS: SYNTHROID PO SCH (06:19)
--- NOTE | 2019-02-12 10:35 | PROGRESS NOTE ---
DATE: 02/12/2019 SUBJECTIVE: Patient is lying comfortably in her bed. No acute complaints are reported. OBJECTIVE: Vital Signs: Temperature 97.1 degrees, pulse 76 per minute, respiratory rate 16 per minute, blood pressure 135/86, pulse oximetry 98% on room air. General: The patient is awake and alert. She does not appear to be in any acute distress. Cardiovascular System: First and second heart sounds are audible without any murmurs or gallops. Respiratory System: No respiratory distress noted. Bilateral lung air entry is good without any rales or rhonchi. Abdomen: Benign. IMPRESSION: 1. Type 2 diabetes mellitus. 2. Hypertension. 3. Seizure disorder. 4. Dyslipidemia. 5. Dementia. 6. Social neglect. PLAN: The patient will continue to receive current medications including Lantus and regular insulin along with atorvastatin, amlodipine, hydralazine, and lisinopril. She will continue with supportive care. She apparently is going to stay here since we could not find a placement for her because of family abandonment. cc: Hernan Morelos MD
[2019-02-12] MEDS: APRESOLINE PO SCH ×3 (10:43→20:30)
[2019-02-12] MEDS: LANTUS INSULIN SUBQ SCH ×2 (10:50→21:09)
[2019-02-12] MEDS: SEROQUEL PO SCH ×2 (10:50→20:29)
[2019-02-12] MEDS: CULTURELLE FOR KIDS PO SCH ×3 (10:50→20:30)
[2019-02-12] MEDS: VIMPAT PO SCH ×3 (10:50→20:29)
[2019-02-12] MEDS: DIFLUCAN PO SCH (10:50)
[2019-02-12] MEDS: ASPIRIN PO SCH (11:27)
[2019-02-12] MEDS: LASIX PO SCH (11:29)
[2019-02-12] MEDS: PRINIVIL PO SCH (11:30)
[2019-02-12] MEDS: NORVASC PO SCH (11:30)
[2019-02-12] MEDS: TOPROL XL PO SCH (11:31)
[2019-02-12] MEDS: FLOMAX PO SCH (20:29)
[2019-02-12] MEDS: LIPITOR PO SCH (20:29)
[2019-02-13] MEDS: SYNTHROID PO SCH (06:54)
[2019-02-13] MEDS: HUMULIN R (PARKWAY) SUBQ SCH ×4 (06:54→20:10)
[2019-02-13] MEDS: VIMPAT PO SCH ×3 (09:48→20:08)
[2019-02-13] MEDS: ASPIRIN PO SCH (09:48)
[2019-02-13] MEDS: CULTURELLE FOR KIDS PO SCH ×3 (09:48→20:09)
[2019-02-13] MEDS: PRINIVIL PO SCH (09:48)
[2019-02-13] MEDS: DIFLUCAN PO SCH (09:49)
[2019-02-13] MEDS: APRESOLINE PO SCH ×3 (09:49→20:08)
[2019-02-13] MEDS: LANTUS INSULIN SUBQ SCH ×2 (09:49→20:09)
[2019-02-13] MEDS: NORVASC PO SCH (09:49)
[2019-02-13] MEDS: LASIX PO SCH (09:49)
[2019-02-13] MEDS: TOPROL XL PO SCH (09:49)
[2019-02-13] MEDS: SEROQUEL PO SCH ×2 (09:49→20:08)
--- NOTE | 2019-02-13 11:32 | PROGRESS NOTE ---
DATE: 02/13/2019 SUBJECTIVE: Patient denies having any issues this morning. She is in a good mood today. OBJECTIVE: Vital Signs: Temperature 97.5 degrees, pulse 65 per minute, respiratory rate 16 per minute, blood pressure 159/73, pulse oximetry 96% on room air. General: Patient is alert and awake. She does not appear to be in any acute distress. Cardiovascular System: First and second heart sounds are audible without any murmurs or gallops. Respiratory System: Bilateral lung air entry is moderately decreased but there are no rales or rhonchi present on auscultation. Gastrointestinal system: Abdomen is benign. IMPRESSION: 1. Type 2 diabetes mellitus. 2. Hypertension. 3. Seizure disorder. 4. Dyslipidemia. 5. Dementia. 6. Social neglect. PLAN: The patient will continue to receive current medications including current insulin regimen. Her glucose levels have been slightly uncontrolled but we have not been able to increase the dose of Lantus because of resulting hypoglycemia. We will continue to treat her hypertension and dyslipidemia, along with seizure disorder and dementia with current medications. She will stay here since we have not been able to find a placement for her because of family abandonment. cc: Hernan Morelos MD
[2019-02-13] MEDS: FLOMAX PO SCH (20:08)
[2019-02-13] MEDS: LIPITOR PO SCH (20:09)
[2019-02-14] MEDS: SYNTHROID PO SCH (06:29)
[2019-02-14] MEDS: HUMULIN R (PARKWAY) SUBQ SCH ×5 (06:29→20:06)
[2019-02-14] MEDS: VIMPAT PO SCH ×3 (10:00→20:05)
[2019-02-14] MEDS: APRESOLINE PO SCH ×4 (10:00→20:06)
[2019-02-14] MEDS: LANTUS INSULIN SUBQ SCH ×3 (10:00→22:00)
[2019-02-14] MEDS: TOPROL XL PO SCH (10:05)
[2019-02-14] MEDS: ASPIRIN PO SCH (10:05)
[2019-02-14] MEDS: LASIX PO SCH (10:10)
[2019-02-14] MEDS: CULTURELLE FOR KIDS PO SCH ×3 (10:15→20:06)
--- NOTE | 2019-02-14 13:50 | PROGRESS NOTE ---
DATE: 02/14/2019 SUBJECTIVE: The patient continues to be nonverbal. No issues according to nursing staff overnight. OBJECTIVE: Vital Signs: Temperature 97.1, heart rate 70, respiratory rate 20, blood pressure 129/61, O2 saturation 99% on room air. General: This is a chronically ill-appearing, 83-year- old, female, lying in bed in no acute distress. Cardiovascular: S1, S2 heard. No murmurs, gallops, or rubs. Regular rate and rhythm. Respiratory: Minimal coarse breath sounds noted in both pulmonary bases. Neurological: The patient sometimes is verbal. Moves all 4 extremities spontaneously. ASSESSMENT: 1. Diabetes mellitus type 2. 2. Hypertension. 3. Seizure disorder. 4. Dyslipidemia. 5. Dementia. 6. Social neglect. PLAN: At this point, will continue awaiting a rehab bed for this patient. cc: Onur Parada MD
[2019-02-14] MEDS: SEROQUEL PO SCH ×2 (14:28→20:06)
[2019-02-14] MEDS: DIFLUCAN PO SCH (14:29)
[2019-02-14] MEDS: PRINIVIL PO SCH (14:30)
[2019-02-14] MEDS: NORVASC PO SCH (14:30)
[2019-02-14] MEDS: LIPITOR PO SCH (20:05)
[2019-02-14] MEDS: FLOMAX PO SCH (20:05)
[2019-02-15] MEDS: SYNTHROID PO SCH (06:54)
[2019-02-15] MEDS: HUMULIN R (PARKWAY) SUBQ SCH ×4 (06:54→23:15)
[2019-02-15] MEDS: ASPIRIN PO SCH (11:06)
[2019-02-15] MEDS: APRESOLINE PO SCH ×3 (11:06→20:09)
[2019-02-15] MEDS: LANTUS INSULIN SUBQ SCH ×2 (11:07→23:16)
[2019-02-15] MEDS: DIFLUCAN PO SCH (11:07)
[2019-02-15] MEDS: CULTURELLE FOR KIDS PO SCH ×3 (11:07→20:09)
[2019-02-15] MEDS: LASIX PO SCH (11:08)
[2019-02-15] MEDS: NORVASC PO SCH (11:08)
[2019-02-15] MEDS: VIMPAT PO SCH ×3 (11:09→20:09)
[2019-02-15] MEDS: SEROQUEL PO SCH ×2 (11:09→20:09)
[2019-02-15] MEDS: PRINIVIL PO SCH (11:09)
[2019-02-15] MEDS: TOPROL XL PO SCH (11:09)
--- NOTE | 2019-02-15 12:19 | PROGRESS NOTE ---
DATE: 02/15/2019 SUBJECTIVE: The patient continues to be nonverbal. According to nursing staff, she had breakfast this morning. No acute issues noted. OBJECTIVE: Vital Signs: Temperature 99 degrees, heart rate 75 respiratory rate 18, blood pressure 148/73 and O2 saturation 93% on room air. General: On examination, this is a chronically ill-appearing 83-year-old female lying in bed in no acute distress. Cardiovascular: S1, S2 heard. No murmurs, gallops, or rubs. Regular rate and rhythm. Respiratory: Minimal coarse breath sounds in both pulmonary bases. Patient not using any accessory muscles or having work of breathing. ASSESSMENT: 1. Diabetes mellitus type 2. 2. Hypertension. 3. Seizure disorder. 4. Dyslipidemia. 5. Dementia. PLAN: At this point, we will continue current management. Awaiting a rehab bed for this patient. cc: Onur Parada MD MTDD
[2019-02-15] MEDS: LIPITOR PO SCH (20:09)
[2019-02-15] MEDS: FLOMAX PO SCH (20:09)
[2019-02-16] MEDS: HUMULIN R (PARKWAY) SUBQ SCH ×3 (06:13→21:09)
[2019-02-16] MEDS: SYNTHROID PO SCH (06:14)
[2019-02-16] MEDS: VIMPAT PO SCH ×3 (08:18→21:09)
[2019-02-16] MEDS: PRINIVIL PO SCH (08:18)
[2019-02-16] MEDS: SEROQUEL PO SCH ×2 (08:18→21:07)
[2019-02-16] MEDS: ASPIRIN PO SCH (08:18)
[2019-02-16] MEDS: APRESOLINE PO SCH ×3 (08:18→21:07)
[2019-02-16] MEDS: CULTURELLE FOR KIDS PO SCH ×3 (08:18→21:07)
[2019-02-16] MEDS: NORVASC PO SCH (08:18)
[2019-02-16] MEDS: TOPROL XL PO SCH (08:18)
[2019-02-16] MEDS: LASIX PO SCH (08:19)
[2019-02-16] MEDS: LANTUS INSULIN SUBQ SCH ×2 (08:20→21:09)
[2019-02-16] MEDS: LIPITOR PO SCH (21:07)
[2019-02-16] MEDS: FLOMAX PO SCH (21:08)
--- NOTE | 2019-02-16 23:14 | PROGRESS NOTE ---
DATE: 02/16/2019 SUBJECTIVE: No new issues. She appears to be eating well. OBJECTIVE: Temperature 98 degrees, pulse 85, respiratory rate 18, BP 162/70. General: The patient is awake. Currently she is in no distress. She is quite verbal this morning, but does not answer questions nor follow commands. Vital signs reviewed.HEENT: Normocephalic, atraumatic. JEN. Neck supple. No JVD. Cardiovascular: Regular rate. Chest clear. Abdomen soft. ASSESSMENT: 1. Diabetes. 2. Hypertension. 3. Seizures. 4. Dyslipidemia. 5. Dementia. 6. Do Not Resuscitate/Allow Natural . 7. Adult failure to thrive. 8. Generalized weakness. PLAN: Continue the patient in the hospital until she can transition to long-term care. Continue to follow. Otherwise treat as needed. We will stop her Diflucan. cc: Ricky Daley MD
[2019-02-17] MEDS: HUMULIN R (PARKWAY) SUBQ SCH ×4 (06:57→22:52)
[2019-02-17] MEDS: LASIX PO SCH (08:28)
[2019-02-17] MEDS: SEROQUEL PO SCH ×2 (08:28→20:41)
[2019-02-17] MEDS: TOPROL XL PO SCH (08:28)
[2019-02-17] MEDS: CULTURELLE FOR KIDS PO SCH ×3 (08:28→20:41)
[2019-02-17] MEDS: APRESOLINE PO SCH ×3 (08:28→20:41)
[2019-02-17] MEDS: SYNTHROID PO SCH (08:28)
[2019-02-17] MEDS: ASPIRIN PO SCH (08:28)
[2019-02-17] MEDS: PRINIVIL PO SCH (08:28)
[2019-02-17] MEDS: VIMPAT PO SCH ×3 (08:28→20:41)
[2019-02-17] MEDS: NORVASC PO SCH (08:28)
[2019-02-17] MEDS: LIPITOR PO SCH (20:41)
[2019-02-17] MEDS: FLOMAX PO SCH (20:41)
--- NOTE | 2019-02-17 22:19 | PROGRESS NOTE ---
DATE: 02/17/2019 SUBJECTIVE: No complaints. PHYSICAL EXAMINATION: Vital Signs: Reviewed. Temperature 97.9 degrees, pulse 69, respiratory rate 18, BP 160/70. General: The patient has an unchanged physical exam. She is awake, alert. She is quite vocal this morning. ASSESSMENT: 1. Diabetes. 2. Hypertension. 3. Seizure disorder. 4. Dyslipidemia. 5. Dementia. 6. Failure to thrive. 7. Do Not resuscitate. PLAN: We will continue the patient in the hospital. We are going to increase her Lantus this morning by 1 unit to 15 units. Continue nighttime Lantus and we will hold that if she does not eat. Further orders to follow. cc: Ricky Daley MD
[2019-02-17] MEDS: LANTUS INSULIN SUBQ SCH (22:52)
[2019-02-18] MEDS: HUMULIN R (PARKWAY) SUBQ SCH ×4 (06:34→20:15)
[2019-02-18] MEDS: SYNTHROID PO SCH ×2 (06:34→09:52)
[2019-02-18] MEDS: NORVASC PO SCH (09:52)
[2019-02-18] MEDS: SEROQUEL PO SCH ×2 (09:52→20:14)
[2019-02-18] MEDS: ASPIRIN PO SCH (09:52)
[2019-02-18] MEDS: TOPROL XL PO SCH (09:53)
[2019-02-18] MEDS: LASIX PO SCH (09:53)
[2019-02-18] MEDS: VIMPAT PO SCH ×3 (09:53→20:14)
[2019-02-18] MEDS: APRESOLINE PO SCH ×3 (09:53→21:00)
[2019-02-18] MEDS: CULTURELLE FOR KIDS PO SCH ×3 (09:59→20:14)
[2019-02-18] MEDS: LANTUS INSULIN SUBQ SCH ×2 (10:58→20:15)
[2019-02-18] MEDS: FLOMAX PO SCH (20:14)
[2019-02-18] MEDS: LIPITOR PO SCH (20:14)
--- NOTE | 2019-02-19 01:07 | PROGRESS NOTE ---
DATE: 02/18/2019 SUBJECTIVE: No complaints. OBJECTIVE: Vital Signs: Reviewed and unchanged. Blood pressures are elevated at 164/69, blood sugars were mildly elevated as well. ASSESSMENT: 1. Diabetes. We will increase insulin. 2. Hypertension. 3. Seizure disorder. 4. Dyslipidemia. 5. Dementia. PLAN: We will continue as has been stated multiple times and await the opportunity for transition to termite exterminator helper care cc: Ricky Daley MD [facility]
[2019-02-19] MEDS: SYNTHROID PO SCH (06:01)
[2019-02-19] MEDS: HUMULIN R (PARKWAY) SUBQ SCH ×4 (06:01→20:08)
[2019-02-19] MEDS: ASPIRIN PO SCH (10:14)
[2019-02-19] MEDS: VIMPAT PO SCH ×3 (10:14→20:07)
[2019-02-19] MEDS: NORVASC PO SCH (10:14)
[2019-02-19] MEDS: APRESOLINE PO SCH ×3 (10:15→20:08)
[2019-02-19] MEDS: LASIX PO SCH (10:15)
[2019-02-19] MEDS: SEROQUEL PO SCH ×2 (10:15→20:08)
[2019-02-19] MEDS: TOPROL XL PO SCH (10:15)
[2019-02-19] MEDS: CULTURELLE FOR KIDS PO SCH ×3 (10:16→20:07)
[2019-02-19] MEDS: LANTUS INSULIN SUBQ SCH ×2 (10:16→20:08)
[2019-02-19] MEDS: PRINIVIL PO SCH (10:26)
--- NOTE | 2019-02-19 19:32 | PROGRESS NOTE ---
DATE: 02/19/2019 SUBJECTIVE: Patient currently has no complaints. Staff has no questions or concerns. PHYSICAL EXAMINATION: Vital signs: Reviewed. Temperature 97.4 degrees, pulse 72, respiratory rate 18, blood pressure 172/72. General: Patient is awake, currently in no distress. Physical essentially unchanged. ASSESSMENT: 1. Diabetes type 2. 2. Hypertension. Seizure disorder. 3. Dementia. 4. Failure to thrive. PLAN: We will continue slowly increasing her insulin. We will continue to hold her nighttime insulin if she does not eat. May need to increase her blood pressure medications as well. cc: Ricky Daley MD
[2019-02-19] MEDS: FLOMAX PO SCH (20:08)
[2019-02-19] MEDS: LIPITOR PO SCH (20:08)
[2019-02-20] MEDS: HUMULIN R (PARKWAY) SUBQ SCH ×4 (06:01→20:22)
[2019-02-20] MEDS: SYNTHROID PO SCH (06:02)
[2019-02-20] MEDS: LASIX PO SCH (09:18)
[2019-02-20] MEDS: TOPROL XL PO SCH (09:18)
[2019-02-20] MEDS: SEROQUEL PO SCH ×2 (09:18→20:21)
[2019-02-20] MEDS: APRESOLINE PO SCH ×3 (09:18→20:21)
[2019-02-20] MEDS: VIMPAT PO SCH ×3 (09:18→20:21)
[2019-02-20] MEDS: ASPIRIN PO SCH (09:18)
[2019-02-20] MEDS: PRINIVIL PO SCH (09:18)
[2019-02-20] MEDS: CULTURELLE FOR KIDS PO SCH ×3 (09:18→20:21)
[2019-02-20] MEDS: NORVASC PO SCH (09:18)
[2019-02-20] MEDS: LANTUS INSULIN SUBQ SCH ×2 (09:26→23:16)
--- NOTE | 2019-02-20 10:24 | PROGRESS NOTE ---
DATE: 02/20/2019 SUBJECTIVE: Patient is lying comfortably in her bed without any complaints reported. OBJECTIVE: Vital Signs: Temperature 98.3 degrees, pulse 65 per minute, respiratory rate 12 per minute, blood pressure 127/55, pulse oximetry 98% on room air. General: Patient is not in any acute distress. Cardiovascular System: First and 2nd heart sounds are audible without any murmurs or gallops. Respiratory System: No respiratory distress noted. Bilateral lung air entry is good without any rales or rhonchi. Gastrointestinal System: Abdomen is benign. DIAGNOSTIC DATA: No new labs have been done. IMPRESSION: 1. Type 2 diabetes mellitus. 2. Hypertension. 3. Seizure disorder. 4. Dyslipidemia. 5. Dementia. 6. Social neglect. PLAN: Will continue with the current medications. Will also continue giving her supportive care. Her overall condition has been stable, but she will remain here at the hospital since we have not been able to find permanent placement. cc: Hernan Morelos MD
[2019-02-20] MEDS: LIPITOR PO SCH (20:21)
[2019-02-20] MEDS: FLOMAX PO SCH (20:21)
[2019-02-21] MEDS: HUMULIN R (PARKWAY) SUBQ SCH ×3 (06:14→17:10)
[2019-02-21] MEDS: SYNTHROID PO SCH (06:14)
[2019-02-21] MEDS: SEROQUEL PO SCH ×2 (10:55→23:10)
[2019-02-21] MEDS: TOPROL XL PO SCH (10:56)
[2019-02-21] MEDS: LASIX PO SCH (10:56)
[2019-02-21] MEDS: APRESOLINE PO SCH ×3 (10:56→23:09)
[2019-02-21] MEDS: LANTUS INSULIN SUBQ SCH ×2 (10:56→23:11)
[2019-02-21] MEDS: VIMPAT PO SCH ×3 (10:56→23:10)
[2019-02-21] MEDS: CULTURELLE FOR KIDS PO SCH ×3 (10:56→23:16)
[2019-02-21] MEDS: ASPIRIN PO SCH (10:56)
[2019-02-21] MEDS: NORVASC PO SCH (10:56)
[2019-02-21] MEDS: PRINIVIL PO SCH (10:56)
[2019-02-21] MEDS: LIPITOR PO SCH (23:09)
[2019-02-21] MEDS: FLOMAX PO SCH (23:09)
[2019-02-22] MEDS: SYNTHROID PO SCH (06:03)
[2019-02-22] MEDS: HUMULIN R (PARKWAY) SUBQ SCH ×4 (06:04→22:05)
--- NOTE | 2019-02-22 06:25 | PROGRESS NOTE ---
DATE: 02/21/2019 SUBJECTIVE: The patient feels good today and is in a pleasant mood. OBJECTIVE: Vital signs: Temperature 98.3 degrees, pulse 70 per minute, respiratory rate 16 per minute, blood pressure 134/67, pulse oximetry 98% on room air. General: The patient is awake and alert. She does not appear to be in any acute distress. Cardiovascular: First and second heart sounds are audible without any murmurs or gallops. Respiratory: No respiratory distress noted. Bilateral lung air entry is good without any rales or rhonchi. Gastrointestinal: Abdomen is soft and nontender. Normal bowel sounds are present. IMPRESSION: 1. Type 2 diabetes mellitus. 2. Hypertension. 3. Seizure disorder. 4. Dyslipidemia. 5. Dementia. 6. Social neglect. PLAN: We will continue with current medications. She will need to continue to get supportive care and will remain at the hospital since we have not been able to find a permanent placement. cc: Hernan Morelos MD
[2019-02-22] MEDS: TOPROL XL PO SCH (10:00)
[2019-02-22] MEDS: PRINIVIL PO SCH (10:00)
[2019-02-22] MEDS: ASPIRIN PO SCH (10:00)
[2019-02-22] MEDS: LANTUS INSULIN SUBQ SCH ×3 (10:00→22:05)
[2019-02-22] MEDS: APRESOLINE PO SCH ×3 (10:00→22:03)
[2019-02-22] MEDS: LASIX PO SCH (10:00)
[2019-02-22] MEDS: CULTURELLE FOR KIDS PO SCH ×3 (10:00→22:04)
[2019-02-22] MEDS: NORVASC PO SCH (10:01)
[2019-02-22] MEDS: SEROQUEL PO SCH ×2 (10:01→22:03)
[2019-02-22] MEDS: VIMPAT PO SCH ×3 (10:01→22:03)
[2019-02-22] MEDS: FLOMAX PO SCH (22:03)
[2019-02-22] MEDS: LIPITOR PO SCH (22:03)
[2019-02-23] MEDS: HUMULIN R (PARKWAY) SUBQ SCH ×4 (06:04→23:10)
[2019-02-23] MEDS: SYNTHROID PO SCH (06:25)
--- NOTE | 2019-02-23 07:56 | PROGRESS NOTE ---
DATE: 02/22/2019 SUBJECTIVE: Patient is without complaints. PHYSICAL EXAMINATION: Vital Signs: Reviewed. Temperature 98.5 degrees, pulse 74, respiratory rate 18, BP 159/57. General: The patient is awake. Currently in no distress. HEENT: Normocephalic. Neck: Supple. Cardiovascular: Regular rate. Chest: Clear. ASSESSMENT: 1. Type 2 diabetes, difficult to control as she frequently changes what she is willing to eat. 2. Hypertension. 3. Dementia. 4. Seizure disorder. PLAN: We will continue patient in the hospital until further arrangements can be made. cc: Ricky Daley MD [facility]
[2019-02-23] MEDS: NORVASC PO SCH (08:56)
[2019-02-23] MEDS: SEROQUEL PO SCH ×2 (08:56→23:03)
[2019-02-23] MEDS: CULTURELLE FOR KIDS PO SCH ×3 (08:56→23:04)
[2019-02-23] MEDS: VIMPAT PO SCH ×3 (08:57→23:03)
[2019-02-23] MEDS: APRESOLINE PO SCH ×3 (08:57→23:04)
[2019-02-23] MEDS: PRINIVIL PO SCH (08:57)
[2019-02-23] MEDS: LASIX PO SCH (08:57)
[2019-02-23] MEDS: ASPIRIN PO SCH (08:57)
[2019-02-23] MEDS: LANTUS INSULIN SUBQ SCH ×2 (08:57→23:05)
[2019-02-23] MEDS: TOPROL XL PO SCH (08:57)
--- NOTE | 2019-02-23 20:09 | PROGRESS NOTE ---
DATE: 02/23/2019 SUBJECTIVE: She is at her baseline currently. OBJECTIVE DATA: Vital signs: Blood pressure is 156/70, heart rate 68, respiratory rate 18, temperature 98.8 degrees, 98% on room air. Cardiovascular: Regular rate and rhythm. Pulmonary: Bilateral breath sounds clear to auscultation. Gastrointestinal: Soft, nontender, nondistended. Bowel sounds are positive. LABORATORY DATA: None. Sugar still in 200-300 range. PROBLEM LIST: 1. Type 2 diabetes, very brittle control. We will continue to monitor. 2. Hypertension, stable currently for her age and risk factors. 3. Dementia, also stable. 4. Seizure disorder, stable on her current medications. DISPOSITION: She has no outpatient resources and she is kind of trapped here essentially because she has no funds for her outpatient treatment. cc: Zachery Bill MD [facility]
[2019-02-23] MEDS: LIPITOR PO SCH (23:03)
[2019-02-23] MEDS: FLOMAX PO SCH (23:03)
[2019-02-24] MEDS: SYNTHROID PO SCH (06:14)
[2019-02-24] MEDS: HUMULIN R (PARKWAY) SUBQ SCH ×4 (06:15→22:29)
[2019-02-24] MEDS: CULTURELLE FOR KIDS PO SCH ×3 (08:22→22:28)
[2019-02-24] MEDS: LASIX PO SCH (08:24)
[2019-02-24] MEDS: TOPROL XL PO SCH (08:24)
[2019-02-24] MEDS: VIMPAT PO SCH ×3 (08:24→22:28)
[2019-02-24] MEDS: SEROQUEL PO SCH ×2 (08:24→22:28)
[2019-02-24] MEDS: PRINIVIL PO SCH (08:24)
[2019-02-24] MEDS: ASPIRIN PO SCH (08:24)
[2019-02-24] MEDS: APRESOLINE PO SCH ×3 (08:24→22:28)
[2019-02-24] MEDS: NORVASC PO SCH (08:24)
[2019-02-24] MEDS: LANTUS INSULIN SUBQ SCH ×2 (08:25→22:30)
--- NOTE | 2019-02-24 14:53 | PROGRESS NOTE ---
DATE: 02/24/2019 SUBJECTIVE: Patient has no major complaints. Pleasantly confused. OBJECTIVE: Blood pressure 174/78, heart rate 70, respiratory 14, temperature 98.3 degrees and 98% on room air. Cardiovascular regular rate and rhythm. Pulmonary with bilateral breath sounds. Clear to auscultation GI was soft, nontender, and nondistended. Bowel sounds are positive. LABORATORY: No new lab data. PROBLEM LIST: 1. Type 2 diabetes stable currently. 2. Hypertension stable on current medications. 3. Dementia stable currently. 4. Seizure disorder controlled on current medications. DISPOSITION: Pending clinical status and long-term placement. cc: Zachery Bill MD
[2019-02-24] MEDS: LIPITOR PO SCH (22:28)
[2019-02-24] MEDS: FLOMAX PO SCH (22:29)
[2019-02-25] MEDS: SYNTHROID PO SCH (06:07)
[2019-02-25] MEDS: HUMULIN R (PARKWAY) SUBQ SCH ×4 (06:09→22:01)
[2019-02-25] MEDS: TOPROL XL PO SCH (10:32)
[2019-02-25] MEDS: ASPIRIN PO SCH (10:32)
[2019-02-25] MEDS: LANTUS INSULIN SUBQ SCH ×2 (10:32→22:17)
[2019-02-25] MEDS: NORVASC PO SCH (10:32)
[2019-02-25] MEDS: APRESOLINE PO SCH ×3 (10:32→22:12)
[2019-02-25] MEDS: PRINIVIL PO SCH (10:33)
[2019-02-25] MEDS: LASIX PO SCH (10:33)
[2019-02-25] MEDS: SEROQUEL PO SCH ×2 (10:33→22:13)
[2019-02-25] MEDS: VIMPAT PO SCH ×3 (10:33→22:13)
[2019-02-25] MEDS: CULTURELLE FOR KIDS PO SCH ×3 (10:44→22:12)
--- NOTE | 2019-02-25 16:16 | PROGRESS NOTE ---
DATE: 02/25/2019 SUBJECTIVE: Patient has no major complaints. She is essentially just quiet, tired and resting. OBJECTIVE: Vital Signs: Blood pressure 165/82, heart rate of 68, respiratory rate 20, temperature 97.4 degrees, satting 100% on room air. Cardiovascular: Regular rate and rhythm. Pulmonary: Bilateral breath sounds. Clear to auscultation. GI: Soft, nontender, nondistended. Bowel sounds are positive. Extremity Exam: No clubbing or cyanosis. Lymphatic Exam: No peripheral edema. Neurological Exam: Nonfocal. LABORATORY DATA: None today. Blood sugars have been running 180 to 367. ASSESSMENT AND PLAN: 1. Type 2 diabetes. I am going to bump up her Lantus. She has 2 different orders for Lantus; one for 13 units and one for 5 units. Actually, she has got twice daily doses; I guess that is how this is laid out. We will titrate up a little bit and see how she does. 2. Hypertension. Continue regular medications. 3. Dementia. She is at her baseline. DISPOSITION: Still waiting long-term placement. cc: Zachery Bill MD
[2019-02-25] MEDS: LIPITOR PO SCH (22:12)
[2019-02-25] MEDS: FLOMAX PO SCH (22:12)
[2019-02-26] MEDS: SYNTHROID PO SCH (06:17)
[2019-02-26] MEDS: HUMULIN R (PARKWAY) SUBQ SCH ×4 (06:37→20:47)
[2019-02-26] MEDS: CULTURELLE FOR KIDS PO SCH ×3 (09:02→20:47)
[2019-02-26] MEDS: TOPROL XL PO SCH (09:02)
[2019-02-26] MEDS: SEROQUEL PO SCH ×2 (09:02→20:47)
[2019-02-26] MEDS: VIMPAT PO SCH ×3 (09:03→20:47)
[2019-02-26] MEDS: LASIX PO SCH (09:03)
[2019-02-26] MEDS: PRINIVIL PO SCH (09:03)
[2019-02-26] MEDS: LANTUS INSULIN SUBQ SCH ×2 (09:03→20:48)
[2019-02-26] MEDS: NORVASC PO SCH (09:03)
[2019-02-26] MEDS: ASPIRIN PO SCH (09:03)
[2019-02-26] MEDS: APRESOLINE PO SCH ×3 (09:03→20:47)
[2019-02-26] MEDS: LIPITOR PO SCH (20:47)
[2019-02-26] MEDS: FLOMAX PO SCH (20:47)
--- NOTE | 2019-02-26 22:19 | PROGRESS NOTE ---
DATE: 02/26/2019 SUBJECTIVE: The patient has no major complaints. OBJECTIVE: Vital Signs: Blood pressure 137/60, heart rate 71, respiratory rate 20, temperature 97.6, saturating 94% on room air. Cardiovascular: Regular rate and rhythm. Pulmonary: Bilateral breath sounds, clear to auscultation. GI: Soft, nontender, nondistended. Bowel sounds are positive. LABORATORY DATA: Blood sugars are a little better, 180s to 100s, so hopefully she will bottom out, because it has happened multiple times. ASSESSMENT/PLAN: 1. Type 2 diabetes. She has a Lantus order, kind of a p.r.n. order, if her blood sugar is still elevated, and right now she is just getting Lantus 13 units and then 8 at night. 2. Hypertension, stable. 3. Dementia, stable. 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 cc: Zachery Bill MD
[2019-02-27] MEDS: SYNTHROID PO SCH (06:25)
[2019-02-27] MEDS: HUMULIN R (PARKWAY) SUBQ SCH ×4 (06:32→21:19)
[2019-02-27] MEDS: ASPIRIN PO SCH (10:00)
[2019-02-27] MEDS: CULTURELLE FOR KIDS PO SCH ×3 (10:00→21:19)
[2019-02-27] MEDS: SEROQUEL PO SCH ×2 (10:00→21:19)
[2019-02-27] MEDS: VIMPAT PO SCH ×3 (10:01→21:19)
[2019-02-27] MEDS: LASIX PO SCH (10:01)
[2019-02-27] MEDS: NORVASC PO SCH (10:01)
[2019-02-27] MEDS: APRESOLINE PO SCH ×3 (10:01→21:19)
[2019-02-27] MEDS: LANTUS INSULIN SUBQ SCH ×2 (10:01→21:18)
[2019-02-27] MEDS: TOPROL XL PO SCH (10:01)
[2019-02-27] MEDS: PRINIVIL PO SCH (10:01)
--- NOTE | 2019-02-27 13:55 | PROGRESS NOTE ---
DATE: 11/27/2018 SUBJECTIVE: Patient has no major complaints. She is sitting, sleeping comfortably. No complaints. OBJECTIVE: Vital Signs: Blood pressure 178/64, heart rate 67 respiratory rate 18, temperature 97.8 degrees, satting 95% on room air. Cardiovascular: Regular rate and rhythm. Pulmonary: Bilateral breath sounds. Clear to auscultation. GI: Soft, nontender, nondistended. Bowel sounds are positive. PROBLEM LIST: 1. Type 2 diabetes. Her blood sugars are still kind of up and down. I have titrated up on her insulin a little bit, and I guess I am going to titrate up a little bit more and then we will see how she does. 2. Dementia is stable currently. She is at her new baseline. DISPOSITION: We are awaiting long-term placement for this patient unfortunately. cc: Zachery Bill MD
[2019-02-27] MEDS: LIPITOR PO SCH (21:19)
[2019-02-27] MEDS: FLOMAX PO SCH (21:19)
[2019-02-28] MEDS: SYNTHROID PO SCH (05:59)
[2019-02-28] MEDS: HUMULIN R (PARKWAY) SUBQ SCH ×4 (05:59→20:37)
[2019-02-28] MEDS: VIMPAT PO SCH ×3 (08:38→20:36)
[2019-02-28] MEDS: APRESOLINE PO SCH ×3 (08:38→20:35)
[2019-02-28] MEDS: LANTUS INSULIN SUBQ SCH ×2 (08:39→20:37)
[2019-02-28] MEDS: CULTURELLE FOR KIDS PO SCH ×3 (08:39→20:35)
[2019-02-28] MEDS: LASIX PO SCH (08:39)
[2019-02-28] MEDS: NORVASC PO SCH (08:39)
[2019-02-28] MEDS: PRINIVIL PO SCH (08:39)
[2019-02-28] MEDS: ASPIRIN PO SCH (08:39)
[2019-02-28] MEDS: SEROQUEL PO SCH ×2 (08:39→20:35)
[2019-02-28] MEDS: TOPROL XL PO SCH (08:39)
[2019-02-28 18:58] LABS: URINE SOURCE CATH
[2019-02-28 19:00] LABS: BILIRUBIN URINE NEGATIVE (NEGATIVE); BLOOD URINE NEGATIVE (NEGATIVE); CLARITY SL. CLOUDY (CLEAR); COLOR YELLOW; KETONE URINE NEGATIVE (NEGATIVE); LEUKOCYTES URINE 2+ (NEGATIVE); NITRITE URINE NEGATIVE (NEGATIVE); PROTEIN URINE TRACE mg/dL (NEGATIVE); SP GRAVITY URINE 1.005; UROBILINOGEN URINE NORMAL
[2019-02-28 19:06] LABS: URINE YEAST PRESENT /HPF
[2019-02-28 19:07] LABS: URINE WBC TNTC /HPF (<10)
[2019-02-28 19:08] LABS: URINE BACTERIA 1+ /HFP; URINE CAST NONE SEEN /LPF; URINE CRYSTAL NONE SEEN /HPF; URINE EPITHELIAL CELLS <10 /HPF (<10)
[2019-02-28] MEDS: FLOMAX PO SCH (20:35)
[2019-02-28] MEDS: LIPITOR PO SCH (20:36)
--- NOTE | 2019-03-01 05:52 | PROGRESS NOTE ---
DATE: 02/28/2019 SUBJECTIVE: The patient has no major complaints. OBJECTIVE: Vital signs: Blood pressure is 163/70, heart rate 72, respiratory rate 18, temperature 97.6 degrees. Cardiovascular: Regular rate and rhythm. Pulmonary: Bilateral breath sounds. Clear to auscultation. GI: Soft, nontender, nondistended. LABORATORY DATA: Sugars 300, 400. PROBLEM LIST: 1. Type 2 diabetes. Still sugars are up and down. She takes 13 units during the day and 10 units at night. I think she has been getting it all. I am going to bump up her Lantus during the day and see how she does. 2. Hypertension is stable. 3. Dementia. She seems a bit more agitated to me and I am wondering if she has developed another UTI. DISPOSITION: Waiting for long-term placement. cc: Zachery Bill MD [facility]TD[facility]
[2019-03-01] MEDS: HUMULIN R (PARKWAY) SUBQ SCH ×4 (06:27→21:40)
[2019-03-01] MEDS: SYNTHROID PO SCH (06:28)
[2019-03-01] MEDS: LANTUS INSULIN SUBQ SCH ×2 (10:56→21:33)
[2019-03-01] MEDS: PRINIVIL PO SCH (10:58)
[2019-03-01] MEDS: VIMPAT PO SCH ×3 (10:58→21:33)
[2019-03-01] MEDS: APRESOLINE PO SCH ×3 (10:58→21:33)
[2019-03-01] MEDS: CULTURELLE FOR KIDS PO SCH ×3 (10:58→21:32)
[2019-03-01] MEDS: SEROQUEL PO SCH ×2 (10:59→21:33)
[2019-03-01] MEDS: ASPIRIN PO SCH (10:59)
[2019-03-01] MEDS: NORVASC PO SCH (10:59)
[2019-03-01] MEDS: LASIX PO SCH (10:59)
[2019-03-01] MEDS: TOPROL XL PO SCH (10:59)
--- NOTE | 2019-03-01 17:34 | PROGRESS NOTE ---
DATE: 03/01/2019 SUBJECTIVE: Patient has no major complaints. OBJECTIVE: Vital Signs: Blood pressure is 156/66, heart rate of 67, respiratory rate 16, temperature 97.5 degrees, and 100% on room air. Cardiovascular: Regular rate and rhythm. Pulmonary: Bilateral breath sounds clear to auscultation. Gastrointestinal: Soft, nontender, nondistended. Bowel sounds are positive. LABORATORY DATA: No white count. Blood sugars are still 300 to 400. Her urine does show too numerous to count white blood cells. We are going to see what her urine culture shows. It is hard to tell if she is symptomatic, but she did describe dysuria or itching in her perineal area yesterday. ASSESSMENT AND PLAN: 1. Type 2 diabetes. We will continue blood sugars. Her blood sugars are getting elevated, but I think that may be associated with infection. I bumped up her Lantus. We may need to adjust it further, but sometimes she can get very hypoglycemic without much forewarning. 2. Hypertension. Continue regular medications. 3. Dementia. Continue regular medicines. 4. Rule out urinary tract infection. We will see what her culture shows and follow. DISPOSITION: We are still waiting for [facility] placement. cc: Zachery Bill MD
[2019-03-01] MEDS: FLOMAX PO SCH (21:32)
[2019-03-01] MEDS: MACROBID PO SCH (21:32)
[2019-03-01] MEDS: LIPITOR PO SCH (21:32)
[2019-03-02] MEDS: SYNTHROID PO SCH (06:18)
[2019-03-02] MEDS: HUMULIN R (PARKWAY) SUBQ SCH ×4 (06:19→21:30)
[2019-03-02] MEDS: CULTURELLE FOR KIDS PO SCH ×3 (08:51→21:30)
[2019-03-02] MEDS: ASPIRIN PO SCH (08:51)
[2019-03-02] MEDS: VIMPAT PO SCH ×3 (08:51→21:29)
[2019-03-02] MEDS: NORVASC PO SCH (08:51)
[2019-03-02] MEDS: SEROQUEL PO SCH ×2 (08:52→21:29)
[2019-03-02] MEDS: APRESOLINE PO SCH ×3 (08:52→21:30)
[2019-03-02] MEDS: PRINIVIL PO SCH (08:52)
[2019-03-02] MEDS: TOPROL XL PO SCH (08:52)
[2019-03-02] MEDS: MACROBID PO SCH ×2 (08:52→21:30)
[2019-03-02] MEDS: LASIX PO SCH (08:52)
[2019-03-02] MEDS: LANTUS INSULIN SUBQ SCH ×2 (08:52→21:30)
--- NOTE | 2019-03-02 19:47 | PROGRESS NOTE ---
DATE: 03/02/2019 SUBJECTIVE: No complaints. PHYSICAL: Vital Signs: Reviewed. She is awake, alert. She is quite vocal this morning. She is eating breakfast. Physical is unchanged. Blood sugars from 114 to 340. ASSESSMENT: 1. Type 2 diabetes. She has recently had a bump in her Lantus. 2. Hypertension. 3. Urinary tract infection currently on Macrobid. cc: Ricky Daley MD [facility]
[2019-03-02] MEDS: LIPITOR PO SCH (21:29)
[2019-03-02] MEDS: FLOMAX PO SCH (21:29)
[2019-03-03] MEDS: SYNTHROID PO SCH (06:04)
[2019-03-03] MEDS: HUMULIN R (PARKWAY) SUBQ SCH ×4 (06:04→21:22)
[2019-03-03] MEDS: MACROBID PO SCH ×2 (09:30→21:07)
[2019-03-03] MEDS: CULTURELLE FOR KIDS PO SCH ×3 (09:30→21:06)
[2019-03-03] MEDS: SEROQUEL PO SCH ×2 (09:30→21:06)
[2019-03-03] MEDS: PRINIVIL PO SCH (09:30)
[2019-03-03] MEDS: LASIX PO SCH (09:30)
[2019-03-03] MEDS: NORVASC PO SCH (09:30)
[2019-03-03] MEDS: APRESOLINE PO SCH ×3 (09:30→21:07)
[2019-03-03] MEDS: TOPROL XL PO SCH (09:30)
[2019-03-03] MEDS: ASPIRIN PO SCH (09:30)
[2019-03-03] MEDS: LANTUS INSULIN SUBQ SCH ×2 (09:30→21:22)
[2019-03-03] MEDS: VIMPAT PO SCH ×3 (09:31→21:06)
[2019-03-03] MEDS: LIPITOR PO SCH (21:06)
[2019-03-03] MEDS: FLOMAX PO SCH (21:06)
[2019-03-03] MEDS: MONISTAT-7 VAG CREAM VAG SCH (21:16)
--- NOTE | 2019-03-03 22:03 | PROGRESS NOTE ---
DATE: 03/03/2019 SUBJECTIVE: No complaints. OBJECTIVE: Vital Signs: Reviewed. She is afebrile. Blood pressure minimally elevated at 155. Blood sugars elevated, 200s to 300s. Physical is unchanged. ASSESSMENT: 1. Diabetes. 2. Hypertension. 3. Urinary tract infection. 4. Failure to thrive. 5. Dementia. PLAN: We will continue patient in hospital until long-term arrangements can be made for transfer. We will continue to follow and continue symptomatic treatment. cc: Ricky Daley MD
[2019-03-04] MEDS: HUMULIN R (PARKWAY) SUBQ SCH ×3 (06:28→17:22)
[2019-03-04] MEDS: SYNTHROID PO SCH (06:28)
[2019-03-04] MEDS: APRESOLINE PO SCH ×3 (09:08→20:04)
[2019-03-04] MEDS: LASIX PO SCH (09:08)
[2019-03-04] MEDS: VIMPAT PO SCH ×3 (09:09→20:02)
[2019-03-04] MEDS: MACROBID PO SCH ×2 (09:09→20:05)
[2019-03-04] MEDS: CULTURELLE FOR KIDS PO SCH ×3 (09:09→20:02)
[2019-03-04] MEDS: LANTUS INSULIN SUBQ SCH ×2 (09:09→20:06)
[2019-03-04] MEDS: SEROQUEL PO SCH ×2 (09:09→20:03)
[2019-03-04] MEDS: ASPIRIN PO SCH (09:09)
[2019-03-04] MEDS: NORVASC PO SCH (09:09)
[2019-03-04] MEDS: PRINIVIL PO SCH (09:09)
[2019-03-04] MEDS: TOPROL XL PO SCH (09:09)
[2019-03-04] MEDS: LIPITOR PO SCH (20:02)
[2019-03-04] MEDS: FLOMAX PO SCH (20:04)
--- NOTE | 2019-03-05 00:13 | PROGRESS NOTE ---
DATE: 03/04/2019 SUBJECTIVE: Patient has no new complaints. PHYSICAL EXAMINATION: Vital Signs: Reviewed. BP elevated at 171/60. Blood sugars 81 to 200 with 1 at 373. Physical exam is unchanged. ASSESSMENT: 1. Hypertension. Blood pressure is elevated. We are going to increase lisinopril to 40. 2. Type 2 diabetes. Continue insulin as well as sliding scale insulin. 3. Dementia. 4. Adult failure to thrive. PLAN: Continue patient in the hospital. Continue to treat blood sugars, blood pressures and we will follow. cc: Ricky Daley MD
[2019-03-05] MEDS: MONISTAT-7 VAG CREAM VAG SCH ×2 (04:35→20:03)
[2019-03-05] MEDS: HUMULIN R (PARKWAY) SUBQ SCH ×5 (04:36→20:02)
[2019-03-05] MEDS: SYNTHROID PO SCH (06:22)
[2019-03-05] MEDS: CULTURELLE FOR KIDS PO SCH ×3 (08:26→20:01)
[2019-03-05] MEDS: VIMPAT PO SCH ×3 (08:26→20:01)
[2019-03-05] MEDS: NORVASC PO SCH (08:27)
[2019-03-05] MEDS: SEROQUEL PO SCH ×2 (08:27→20:01)
[2019-03-05] MEDS: PRINIVIL PO SCH (08:27)
[2019-03-05] MEDS: APRESOLINE PO SCH ×3 (08:27→20:02)
[2019-03-05] MEDS: ASPIRIN PO SCH (08:27)
[2019-03-05] MEDS: MACROBID PO SCH ×2 (08:27→20:01)
[2019-03-05] MEDS: TOPROL XL PO SCH (08:27)
[2019-03-05] MEDS: LASIX PO SCH (08:28)
[2019-03-05] MEDS: LANTUS INSULIN SUBQ SCH ×2 (08:28→20:02)
--- NOTE | 2019-03-05 15:05 | PROGRESS NOTE ---
DATE: 03/05/2019 SUBJECTIVE: Patient without complaints. PHYSICAL EXAMINATION: Vital Signs: Reviewed. Blood pressures are elevated at 166/60. Physical Exam: Unchanged. ASSESSMENT: 1. Hypertension. We will increase lisinopril to 40. 2. Type 2 diabetes. Blood sugars today are elevated at 170s to 300s. 3. Dementia. 4. Adult failure to thrive. PLAN: Continue patient in the hospital. Continue symptomatic care until long-term placement can be arranged. cc: Ricky Daley MD
[2019-03-05] MEDS: LIPITOR PO SCH (20:01)
[2019-03-05] MEDS: FLOMAX PO SCH (20:01)
[2019-03-06] MEDS: HUMULIN R (PARKWAY) SUBQ SCH ×4 (06:26→20:06)
[2019-03-06] MEDS: SYNTHROID PO SCH (06:26)
[2019-03-06] MEDS: TOPROL XL PO SCH (10:56)
[2019-03-06] MEDS: CULTURELLE FOR KIDS PO SCH ×3 (10:56→20:00)
[2019-03-06] MEDS: VIMPAT PO SCH ×3 (10:56→20:00)
[2019-03-06] MEDS: LASIX PO SCH (10:56)
[2019-03-06] MEDS: NORVASC PO SCH (10:56)
[2019-03-06] MEDS: APRESOLINE PO SCH ×3 (10:56→20:06)
[2019-03-06] MEDS: PRINIVIL PO SCH (10:56)
[2019-03-06] MEDS: ASPIRIN PO SCH (10:56)
[2019-03-06] MEDS: LANTUS INSULIN SUBQ SCH ×2 (10:57→20:07)
[2019-03-06] MEDS: MACROBID PO SCH ×2 (10:57→20:00)
[2019-03-06] MEDS: SEROQUEL PO SCH ×2 (10:57→20:00)
--- NOTE | 2019-03-06 12:40 | PROGRESS NOTE ---
DATE: 03/06/2019 SUBJECTIVE: The patient had a seizure this morning. Currently she is stable, in no respiratory distress. OBJECTIVE: Vital signs: Temperature 97.9, pulse 71, respiratory rate 18, blood pressure 150/63. General: Patient was awake and alert prior to this seizure. She is postictal afterwards. However, she is in no respiratory distress. HEENT: Normocephalic. Neck: Supple. Cardiovascular: Regular rate. Chest: Clear. Abdomen: Soft. Extremities: Moves all extremities. ASSESSMENT: 1. Seizure disorder. 2. Type 2 diabetes. 3. Hypertension. 4. Dementia. 5. Adult failure to thrive. PLAN: We will continue the patient in the hospital until suitable long-term care arrangements can be made. cc: Ricky Daley MD
--- NOTE | 2019-03-06 14:21 | EKG Report ---
Test Performed on : 03/06/2019 10:46:29 AM Test Reason : SEIZURE Blood Pressure : / mmHG Vent. Rate : 090 BPM Atrial Rate : 090 BPM P-R Int : 148 ms QRS Dur : 094 ms QT Int : 380 ms P-R-T Axes : 000 -28 135 degrees QTc Int : 464 ms Normal sinus rhythm. Septal infarct , age undetermined ST & T wave abnormality, consider lateral ischemia Abnormal ECG When compared with ECG of 30-JAN-2019 16:20, (Unconfirmed) No significant change was found Confirmed by Duong Kearney MD ([id number]) on 03/24/2019 9:19:03 PM
[2019-03-06] MEDS: LIPITOR PO SCH (20:00)
[2019-03-06] MEDS: MONISTAT-7 VAG CREAM VAG SCH (20:00)
[2019-03-06] MEDS: FLOMAX PO SCH (20:00)
[2019-03-07] MEDS: SYNTHROID PO SCH (06:04)
[2019-03-07] MEDS: HUMULIN R (PARKWAY) SUBQ SCH ×4 (06:17→20:41)
[2019-03-07] MEDS: CULTURELLE FOR KIDS PO SCH ×3 (09:40→20:08)
[2019-03-07] MEDS: LASIX PO SCH (09:41)
[2019-03-07] MEDS: MACROBID PO SCH ×2 (09:41→20:08)
[2019-03-07] MEDS: NORVASC PO SCH (09:41)
[2019-03-07] MEDS: VIMPAT PO SCH ×3 (09:41→20:08)
[2019-03-07] MEDS: PRINIVIL PO SCH (09:41)
[2019-03-07] MEDS: ASPIRIN PO SCH (09:41)
[2019-03-07] MEDS: TOPROL XL PO SCH (09:42)
[2019-03-07] MEDS: LANTUS INSULIN SUBQ SCH ×2 (09:42→20:41)
[2019-03-07] MEDS: SEROQUEL PO SCH ×2 (09:42→20:08)
[2019-03-07] MEDS: APRESOLINE PO SCH ×3 (09:42→20:08)
[2019-03-07] MEDS: LIPITOR PO SCH (20:08)
[2019-03-07] MEDS: FLOMAX PO SCH (20:08)
[2019-03-07] MEDS: MONISTAT-7 VAG CREAM VAG SCH (20:09)
--- NOTE | 2019-03-08 05:54 | PROGRESS NOTE ---
DATE: 03/07/2019 SUBJECTIVE: No complaints. PHYSICAL EXAMINATION: Vital Signs: Reviewed. BP elevated 164/92. Blood sugars 164 to 407. Physical is unchanged. ASSESSMENT: 1. Diabetes. 2. Hypertension. 3. Adult failure to thrive. 4. Generalized weakness. 5. Dementia. PLAN: We will continue patient in the hospital. She did have a seizure yesterday. Has no current residual affects of such. cc: Ricky Daley MD
[2019-03-08] MEDS: SYNTHROID PO SCH (06:05)
[2019-03-08] MEDS: HUMULIN R (PARKWAY) SUBQ SCH ×3 (06:18→16:36)
[2019-03-08] MEDS: VIMPAT PO SCH ×3 (10:25→20:13)
[2019-03-08] MEDS: MACROBID PO SCH (10:25)
[2019-03-08] MEDS: PRINIVIL PO SCH (10:25)
[2019-03-08] MEDS: SEROQUEL PO SCH ×2 (10:26→20:12)
[2019-03-08] MEDS: TOPROL XL PO SCH (10:26)
[2019-03-08] MEDS: ASPIRIN PO SCH (10:26)
[2019-03-08] MEDS: LASIX PO SCH (10:26)
[2019-03-08] MEDS: CULTURELLE FOR KIDS PO SCH ×3 (10:26→20:12)
[2019-03-08] MEDS: NORVASC PO SCH (10:26)
[2019-03-08] MEDS: APRESOLINE PO SCH ×3 (10:26→20:19)
[2019-03-08] MEDS: LANTUS INSULIN SUBQ SCH (10:27)
--- NOTE | 2019-03-08 19:11 | PROGRESS NOTE ---
DATE: 03/08/2019 SUBJECTIVE: No complaints. The patient is quite vocal today. PHYSICAL EXAMINATION: Vital Signs: Reviewed. Temperature 98 degrees, pulse 70, respiratory rate 18, BP 155/71. General: Patient is awake, alert, currently in no respiratory distress. HEENT: Normocephalic. Neck: Supple. Cardiovascular: Regular rate. Chest: Clear. Abdomen: Soft. Extremities: Moves all extremities. Neurologic: No changes. Blood sugars 155 to 317. Physical is unchanged. ASSESSMENT: 1. Diabetes. Her blood sugars appear to be more elevated in the morning than they are in the evenings. We are going to increase her Lantus by 1 unit at night and continue to hold this if she refuses to eat during the day. 2. Hypertension. 3. Adult failure to thrive. 4. Dementia. PLAN: Continue patient in the hospital until long-term arrangements can be made. cc: Ricky Daley MD
[2019-03-08] MEDS: FLOMAX PO SCH (20:12)
[2019-03-08] MEDS: LIPITOR PO SCH (20:13)
[2019-03-09] MEDS: LANTUS INSULIN SUBQ SCH ×3 (00:18→21:09)
[2019-03-09] MEDS: HUMULIN R (PARKWAY) SUBQ SCH ×6 (00:18→21:08)
[2019-03-09] MEDS: MONISTAT-7 VAG CREAM VAG SCH ×2 (00:19→02:19)
[2019-03-09] MEDS: SYNTHROID PO SCH ×2 (04:41→06:17)
[2019-03-09] MEDS: VIMPAT PO SCH ×3 (09:11→21:07)
[2019-03-09] MEDS: SEROQUEL PO SCH ×2 (09:11→21:08)
[2019-03-09] MEDS: PRINIVIL PO SCH (09:11)
[2019-03-09] MEDS: ASPIRIN PO SCH (09:11)
[2019-03-09] MEDS: CULTURELLE FOR KIDS PO SCH ×3 (09:12→21:07)
[2019-03-09] MEDS: NORVASC PO SCH (09:12)
[2019-03-09] MEDS: TOPROL XL PO SCH (09:12)
[2019-03-09] MEDS: LASIX PO SCH (09:12)
[2019-03-09] MEDS: APRESOLINE PO SCH ×3 (09:12→21:08)
--- NOTE | 2019-03-09 13:34 | PROGRESS NOTE ---
DATE: 03/09/2019 SUBJECTIVE: The patient is not verbal today. No acute issues noted as per nursing staff overnight. OBJECTIVE: Vital Signs: Temperature 98.5 degrees, heart rate 71, respiratory rate 18, blood pressure 135/60, O2 saturation 96% on room air. General: This is an 89-year-old, female lying in bed, in no acute distress. Cardiovascular: S1, S2 heard. No murmurs, gallops, or rubs. Regular rate and rhythm. Respiratory: Clear bilaterally to auscultation. No work of breathing or using accessory muscles. Neurological: Patient nonverbal, moves 4 extremities spontaneously. ASSESSMENT: 1. Diabetes. We will continue with current management, in this case Lantus and sliding scale insulin. We will hold Lantus if patient refuses to eat. 2. Hypertension. Blood pressure is under control. We will continue with the same management. 3. Adult failure to thrive. 4. Dementia. PLAN: We will continue monitoring this patient and awaiting a long-term arrangements for her. cc: Onur Parada MD
[2019-03-09] MEDS: FLOMAX PO SCH (21:07)
[2019-03-09] MEDS: LIPITOR PO SCH (21:08)
[2019-03-10] MEDS: SYNTHROID PO SCH ×3 (06:21→06:31)
[2019-03-10] MEDS: HUMULIN R (PARKWAY) SUBQ SCH ×4 (06:22→20:34)
[2019-03-10] MEDS: VIMPAT PO SCH ×3 (08:49→20:28)
[2019-03-10] MEDS: ASPIRIN PO SCH (08:49)
[2019-03-10] MEDS: CULTURELLE FOR KIDS PO SCH ×3 (08:49→20:28)
[2019-03-10] MEDS: SEROQUEL PO SCH ×2 (08:49→20:28)
[2019-03-10] MEDS: LASIX PO SCH (08:49)
[2019-03-10] MEDS: NORVASC PO SCH (08:49)
[2019-03-10] MEDS: TOPROL XL PO SCH (08:49)
[2019-03-10] MEDS: APRESOLINE PO SCH ×3 (08:49→20:28)
[2019-03-10] MEDS: PRINIVIL PO SCH (08:50)
[2019-03-10] MEDS: LANTUS INSULIN SUBQ SCH ×2 (08:50→20:34)
--- NOTE | 2019-03-10 13:05 | PROGRESS NOTE ---
DATE: 03/10/2019 SUBJECTIVE: Patient is nonverbal today. She yells at times. No acute issues noted as per nursing staff overnight. OBJECTIVE: Vital Signs: Temperature 97.5 degrees, heart rate 82, respiratory rate 15, blood pressure 135/60, O2 saturation 98% on room air. General Examination: This is a chronically ill appearing, 89-year-old -[place] female lying in bed, in no acute distress. Cardiovascular: S1, S2 heard. No murmurs, gallops, or rubs. Regular rate and rhythm. Respiratory: Clear bilaterally to auscultation. No work of breathing or using accessory muscles. Neurological: Patient able to move all four extremities. ASSESSMENT AND PLAN: 1. Diabetes mellitus type 2. 2. Hypertension. 3. Adult failure to thrive. 4. Dementia. 5. At this point, we will continue waiting for long-term placement for this patient. cc: Onur Parada MD
[2019-03-10] MEDS: LIPITOR PO SCH (20:28)
[2019-03-10] MEDS: FLOMAX PO SCH (20:28)
[2019-03-11] MEDS: SYNTHROID PO SCH (06:17)
[2019-03-11] MEDS: HUMULIN R (PARKWAY) SUBQ SCH ×4 (06:18→21:25)
[2019-03-11] MEDS: LANTUS INSULIN SUBQ SCH ×2 (08:34→21:25)
[2019-03-11] MEDS: VIMPAT PO SCH ×3 (08:34→21:15)
[2019-03-11] MEDS: SEROQUEL PO SCH ×2 (08:36→21:15)
[2019-03-11] MEDS: ASPIRIN PO SCH (08:36)
[2019-03-11] MEDS: CULTURELLE FOR KIDS PO SCH ×3 (08:36→21:15)
[2019-03-11] MEDS: NORVASC PO SCH (08:36)
[2019-03-11] MEDS: TOPROL XL PO SCH (08:36)
[2019-03-11] MEDS: PRINIVIL PO SCH (08:36)
[2019-03-11] MEDS: APRESOLINE PO SCH ×3 (08:36→21:16)
[2019-03-11] MEDS: LASIX PO SCH (08:37)
[2019-03-11] MEDS: MIRALAX PO PRN (08:45)
--- NOTE | 2019-03-11 13:04 | PROGRESS NOTE ---
DATE: 03/11/2019 SUBJECTIVE: The patient is nonverbal. No acute issues noted as per nursing staff overnight. OBJECTIVE: Vital Signs: Temperature 97.6 degrees, heart rate 73, respiratory rate 20, blood pressure 151/70, and O2 saturation 100% on room air. General: This is a chronically ill appearing, 89-year-old, female lying in bed in no acute distress. Cardiovascular: S1, S2 heard. No murmurs, gallops, or rubs. Regular rate and rhythm. Respiratory: Clear bilaterally to auscultation. No work of breathing or using accessory muscles. Neurological: Patient is able to move all 4 extremities. Patient is nonverbal. ASSESSMENT AND PLAN: 1. Diabetes mellitus type 2. 2. Hypertension. 3. Failure to thrive. 4. Dementia. 5. At this point, we will continue to wait for long-term plan for this patient. cc: Onur Parada MD
[2019-03-11] MEDS: FLOMAX PO SCH (21:15)
[2019-03-11] MEDS: LIPITOR PO SCH (21:16)
[2019-03-12] MEDS: HUMULIN R (PARKWAY) SUBQ SCH ×4 (06:02→20:17)
[2019-03-12] MEDS: SYNTHROID PO SCH (06:32)
[2019-03-12] MEDS: CULTURELLE FOR KIDS PO SCH ×3 (09:03→20:14)
[2019-03-12] MEDS: TOPROL XL PO SCH (09:03)
[2019-03-12] MEDS: APRESOLINE PO SCH ×3 (09:03→20:16)
[2019-03-12] MEDS: VIMPAT PO SCH ×3 (09:03→20:14)
[2019-03-12] MEDS: LASIX PO SCH (09:03)
[2019-03-12] MEDS: ASPIRIN PO SCH (09:03)
[2019-03-12] MEDS: SEROQUEL PO SCH ×2 (09:03→20:14)
[2019-03-12] MEDS: PRINIVIL PO SCH (09:03)
[2019-03-12] MEDS: NORVASC PO SCH (09:03)
[2019-03-12] MEDS: LANTUS INSULIN SUBQ SCH ×2 (09:04→20:17)
--- NOTE | 2019-03-12 11:27 | PROGRESS NOTE ---
DATE: 03/12/2019 SUBJECTIVE: Patient is nonverbal. No acute issues noted as per nursing staff overnight. OBJECTIVE: Vital Signs: Temperature 98.3 degrees, heart rate 78, respiratory 20, blood pressure 138/52, O2 saturation 100% on room air. General: This is a chronically ill appearing, 83-year- old, female lying in bed, in no acute distress. Cardiovascular: S1, S2 heard. No murmurs, gallops, or rubs. Regular rate and rhythm. Respiratory: Clear bilaterally to auscultation. No work of breathing or using accessory muscles. Abdomen: Soft, nontender to palpation. Bowel sounds present. Neurological: Patient able to move 4 extremities. Patient nonverbal. ASSESSMENT: 1. Diabetes mellitus type 2. 2. Hypertension. 3. Failure to thrive. 4. Dementia. PLAN: At this point, we will continue to wait for long-term placement for this patient. cc: Onur Parada MD
[2019-03-12] MEDS: LIPITOR PO SCH (20:15)
[2019-03-12] MEDS: FLOMAX PO SCH (20:16)
[2019-03-13] MEDS: HUMULIN R (PARKWAY) SUBQ SCH ×4 (06:46→20:14)
[2019-03-13] MEDS: SYNTHROID PO SCH (06:47)
--- NOTE | 2019-03-13 10:10 | PROGRESS NOTE ---
DATE: 03/13/2019 SUBJECTIVE: Patient is nonverbal. No acute issues noted as per nursing staff overnight. OBJECTIVE: Vital Signs: Temperature 97.7 degrees, heart rate 74, respiratory rate 16, blood pressure 137/55, O2 saturation 99% on room air. General: This is a chronically ill-appearing 83- year-old female lying in bed, in no acute distress. Cardiovascular: S1, S2 heard. No murmurs, gallops, or rubs. Regular rate and rhythm. Respiratory: Clear bilaterally to auscultation. No work of breathing or using accessory muscles. Abdomen: Soft, nontender to palpation. Bowel sounds present. No organomegaly. Neurological: Patient able to move 4 extremities. Patient nonverbal. ASSESSMENT: 1. Diabetes mellitus type 2. 2. Hypertension. 3. Failure to thrive. 4. Advanced dementia. PLAN: We will continue to wait for long-term placement for this patient. cc: Onur Parada MD
[2019-03-13] MEDS: TOPROL XL PO SCH (11:59)
[2019-03-13] MEDS: VIMPAT PO SCH ×3 (11:59→20:15)
[2019-03-13] MEDS: NORVASC PO SCH (11:59)
[2019-03-13] MEDS: PRINIVIL PO SCH (11:59)
[2019-03-13] MEDS: APRESOLINE PO SCH ×3 (11:59→20:13)
[2019-03-13] MEDS: ASPIRIN PO SCH (11:59)
[2019-03-13] MEDS: SEROQUEL PO SCH ×2 (11:59→20:15)
[2019-03-13] MEDS: LASIX PO SCH (11:59)
[2019-03-13] MEDS: CULTURELLE FOR KIDS PO SCH ×3 (12:00→20:13)
[2019-03-13] MEDS: LANTUS INSULIN SUBQ SCH ×2 (12:10→20:15)
[2019-03-13] MEDS: FLOMAX PO SCH (20:13)
[2019-03-13] MEDS: LIPITOR PO SCH (20:15)
[2019-03-14] MEDS: SYNTHROID PO SCH (06:15)
[2019-03-14] MEDS: HUMULIN R (PARKWAY) SUBQ SCH ×4 (06:15→21:05)
[2019-03-14] MEDS: VIMPAT PO SCH ×3 (09:11→20:06)
[2019-03-14] MEDS: NORVASC PO SCH (09:11)
[2019-03-14] MEDS: LASIX PO SCH (09:11)
[2019-03-14] MEDS: PRINIVIL PO SCH (09:11)
[2019-03-14] MEDS: ASPIRIN PO SCH (09:11)
[2019-03-14] MEDS: SEROQUEL PO SCH ×2 (09:11→20:06)
[2019-03-14] MEDS: APRESOLINE PO SCH ×3 (09:11→20:07)
[2019-03-14] MEDS: TOPROL XL PO SCH (09:11)
[2019-03-14] MEDS: CULTURELLE FOR KIDS PO SCH ×3 (09:12→20:06)
[2019-03-14] MEDS: LANTUS INSULIN SUBQ SCH ×2 (13:13→21:26)
[2019-03-14] MEDS: FLOMAX PO SCH (20:06)
[2019-03-14] MEDS: LIPITOR PO SCH (20:07)
--- NOTE | 2019-03-15 04:45 | PROGRESS NOTE ---
DATE: 03/14/2019 SUBJECTIVE: There are no acute issues noted as per nursing staff overnight. The patient continues to be nonverbal to me. She yells at times. OBJECTIVE: Vital Signs: Temperature 97.4 degrees, heart rate 79, respiratory rate 18, blood pressure 183/70, O2 saturation 96% on room air. General: This is a chronically ill-appearing, 83- year-old, female, lying in bed in no acute distress. Cardiovascular: S1, S2 heard. No murmurs, gallops, or rubs. Regular rate and rhythm. Respiratory: Clear bilaterally to auscultation. No work of breathing or using accessory muscles. Abdomen: Soft, nontender to palpation. Bowel sounds present. No organomegaly. Extremities: No edema. Neurological: The patient is alert and oriented x3. Moves all 4 extremities. LABORATORY DATA: No labs today. ASSESSMENT: 1. Diabetes mellitus type 2. 2. Hypertension. 3. Failure to thrive. 4. Advanced dementia. PLAN: Will continue to wait for placement for this patient. cc: Onur Parada MD
[2019-03-15] MEDS: HUMULIN R (PARKWAY) SUBQ SCH ×4 (06:14→21:14)
[2019-03-15] MEDS: SYNTHROID PO SCH (06:14)
[2019-03-15] MEDS: LASIX PO SCH (08:58)
[2019-03-15] MEDS: NORVASC PO SCH (08:58)
[2019-03-15] MEDS: PRINIVIL PO SCH (08:58)
[2019-03-15] MEDS: CULTURELLE FOR KIDS PO SCH ×3 (08:58→21:13)
[2019-03-15] MEDS: ASPIRIN PO SCH (08:58)
[2019-03-15] MEDS: SEROQUEL PO SCH ×2 (08:58→21:13)
[2019-03-15] MEDS: LANTUS INSULIN SUBQ SCH ×2 (08:59→21:13)
[2019-03-15] MEDS: APRESOLINE PO SCH ×3 (08:59→21:13)
[2019-03-15] MEDS: TOPROL XL PO SCH (08:59)
[2019-03-15] MEDS: VIMPAT PO SCH ×3 (08:59→21:13)
--- NOTE | 2019-03-15 10:00 | PROGRESS NOTE ---
DATE: 03/15/2019 SUBJECTIVE: The patient is nonverbal and yells at times. No acute issues noted as per nursing staff overnight. OBJECTIVE: Vital Signs: Temperature 98.3 degrees, heart rate 79, respiratory rate 14, blood pressure 127/72, O2 saturation 100% on room air. General: This is an 83-year-old, chronically ill-appearing, female, lying in bed in no acute distress. Cardiovascular: S1, S2 heard. No murmurs, gallops, or rubs. Regular rate and rhythm. Respiratory: Clear bilaterally to auscultation. No work of breathing or using accessory muscles. Neurological: The patient continues to be confused. Nonverbal. Moves all 4 extremities spontaneously. ASSESSMENT: 1. Diabetes mellitus type 2. 2. Dementia. 3. Hypertension. 4. Failure to thrive. PLAN: Will continue to wait for permanent placement for this patient. cc: Onur Parada MD MTDD
[2019-03-15] MEDS: LIPITOR PO SCH (21:13)
[2019-03-15] MEDS: FLOMAX PO SCH (21:13)
[2019-03-16] MEDS: SYNTHROID PO SCH ×2 (05:13→06:04)
[2019-03-16] MEDS: HUMULIN R (PARKWAY) SUBQ SCH ×4 (06:04→21:47)
[2019-03-16] MEDS: TOPROL XL PO SCH (08:25)
[2019-03-16] MEDS: VIMPAT PO SCH ×3 (08:25→21:46)
[2019-03-16] MEDS: NORVASC PO SCH (08:25)
[2019-03-16] MEDS: SEROQUEL PO SCH ×2 (08:25→21:46)
[2019-03-16] MEDS: PRINIVIL PO SCH (08:26)
[2019-03-16] MEDS: APRESOLINE PO SCH ×3 (08:26→21:46)
[2019-03-16] MEDS: ASPIRIN PO SCH (08:26)
[2019-03-16] MEDS: CULTURELLE FOR KIDS PO SCH ×3 (08:26→21:45)
[2019-03-16] MEDS: LANTUS INSULIN SUBQ SCH ×2 (08:26→21:46)
[2019-03-16] MEDS: LASIX PO SCH (08:26)
--- NOTE | 2019-03-16 21:17 | PROGRESS NOTE ---
DATE: 03/16/2019 SUBJECTIVE: No new complaints. OBJECTIVE: 'Vital signs reviewed. Temperature 97.7 degrees, pulse 78, respiratory rate 18, BP 178/89.General: The patient is awake, alert. She is in no distress. Blood sugars 159 to 336. ASSESSMENT: 1. Diabetes. 2. Dementia. 3. Hypertension. 4. Adult failure to thrive. PLAN: Continue current plan. cc: Ricky Daley MD
[2019-03-16] MEDS: FLOMAX PO SCH (21:45)
[2019-03-16] MEDS: LIPITOR PO SCH (21:45)
[2019-03-17] MEDS: SYNTHROID PO SCH (06:11)
[2019-03-17] MEDS: HUMULIN R (PARKWAY) SUBQ SCH ×4 (06:27→23:59)
[2019-03-17] MEDS: NORVASC PO SCH (08:42)
[2019-03-17] MEDS: CULTURELLE FOR KIDS PO SCH ×3 (08:43→20:16)
[2019-03-17] MEDS: LASIX PO SCH (08:43)
[2019-03-17] MEDS: APRESOLINE PO SCH ×3 (08:43→20:17)
[2019-03-17] MEDS: SEROQUEL PO SCH ×2 (08:43→20:18)
[2019-03-17] MEDS: ASPIRIN PO SCH (08:43)
[2019-03-17] MEDS: PRINIVIL PO SCH (08:43)
[2019-03-17] MEDS: VIMPAT PO SCH ×3 (08:43→20:16)
[2019-03-17] MEDS: TOPROL XL PO SCH (08:43)
[2019-03-17] MEDS: LANTUS INSULIN SUBQ SCH ×2 (13:32→20:18)
[2019-03-17] MEDS: FLOMAX PO SCH (20:17)
[2019-03-17] MEDS: LIPITOR PO SCH (20:17)
--- NOTE | 2019-03-17 21:58 | PROGRESS NOTE ---
DATE: 03/17/2019 SUBJECTIVE: The patient is very pleasant today. She is talking with the staff, telling them that her will be here soon and she needs to get the place ready. She is asking if there will be food for him when he gets here, as he will probably be hungry. OBJECTIVE: Temperature 97.6, pulse 74, respiratory rate 18, BP 150/55.General: The patient is in no current respiratory distress. HEENT: Normocephalic. Cardiovascular: Regular rate. Chest clear. LABORATORY DATA: Glucose 135 to 431. ASSESSMENT: 1. Diabetes. 2. Dementia, severe. 3. Hypertension. 4. Adult failure to thrive. 5. Others. PLAN: We will continue the patient in the hospital until further arrangements can be made. cc: Ricky Daley MD
[2019-03-18] MEDS: HUMULIN R (PARKWAY) SUBQ SCH ×4 (06:15→21:00)
[2019-03-18] MEDS: SYNTHROID PO SCH (06:27)
[2019-03-18] MEDS: VIMPAT PO SCH ×3 (11:08→21:35)
[2019-03-18] MEDS: LANTUS INSULIN SUBQ SCH ×2 (11:08→21:36)
[2019-03-18] MEDS: CULTURELLE FOR KIDS PO SCH ×3 (11:09→21:36)
[2019-03-18] MEDS: LASIX PO SCH (11:09)
[2019-03-18] MEDS: PRINIVIL PO SCH (11:09)
[2019-03-18] MEDS: TOPROL XL PO SCH (11:10)
[2019-03-18] MEDS: SEROQUEL PO SCH ×2 (11:10→21:35)
[2019-03-18] MEDS: NORVASC PO SCH (11:10)
[2019-03-18] MEDS: APRESOLINE PO SCH ×3 (11:10→21:35)
[2019-03-18] MEDS: ASPIRIN PO SCH (11:10)
[2019-03-18] MEDS: FLOMAX PO SCH (21:35)
--- NOTE | 2019-03-18 22:55 | PROGRESS NOTE ---
DATE: 03/18/2019 SUBJECTIVE: Patient has no complaints. She is very verbal today. PHYSICAL EXAMINATION: Vital Signs: Temperature afebrile pulse 70, BP elevated 160s to 170s. Blood sugar 200-300. Physical exam is unchanged. ASSESSMENT: 1. Diabetes. 2. Dementia. 3. Hypertension. 4. Adult failure to thrive. PLAN: Continue to follow until she can transition to long-term care. cc: Ricky Daley MD MTDD
[2019-03-18] MEDS: LIPITOR PO SCH (23:00)
[2019-03-19] MEDS: SYNTHROID PO SCH (06:09)
[2019-03-19] MEDS: HUMULIN R (PARKWAY) SUBQ SCH ×4 (07:22→20:21)
[2019-03-19] MEDS: VIMPAT PO SCH ×3 (08:43→20:22)
[2019-03-19] MEDS: NORVASC PO SCH (08:44)
[2019-03-19] MEDS: ASPIRIN PO SCH (08:44)
[2019-03-19] MEDS: PRINIVIL PO SCH (08:44)
[2019-03-19] MEDS: APRESOLINE PO SCH ×3 (08:44→20:23)
[2019-03-19] MEDS: LANTUS INSULIN SUBQ SCH ×2 (08:44→20:24)
[2019-03-19] MEDS: TOPROL XL PO SCH (08:44)
[2019-03-19] MEDS: SEROQUEL PO SCH ×2 (08:44→20:22)
[2019-03-19] MEDS: LASIX PO SCH (08:44)
[2019-03-19] MEDS: CULTURELLE FOR KIDS PO SCH ×3 (08:44→20:22)
--- NOTE | 2019-03-19 11:15 | PROGRESS NOTE ---
DATE: 03/19/2019 SUBJECTIVE: No complaints. Patient is quite talkative this morning. She is in no distress. PHYSICAL EXAMINATION: Vital Signs: Reviewed. Temperature 97.6 degrees, pulse 78, BP 169/90. General: Patient is lying in the bed talking. Blood sugars were low last night, 40s and 50s, currently 337 this morning. Physical unchanged. ASSESSMENT: 1. Diabetes with frequent episodes of hypoglycemia preventing us from controlling her blood sugars from a hyperglycemic standpoint. Unfortunately, as she did last night, she will frequently refuse to eat after she has already had her insulin. 2. Hypertension. 3. Diabetes. 4. Dementia. 5. Adult failure to thrive. cc: Ricky Daley MD
[2019-03-19] MEDS: FLOMAX PO SCH ×3 (20:21→23:19)
[2019-03-19] MEDS: LIPITOR PO SCH (20:22)
[2019-03-20] MEDS: SYNTHROID PO SCH (06:07)
[2019-03-20] MEDS: HUMULIN R (PARKWAY) SUBQ SCH ×4 (06:07→21:28)
[2019-03-20] MEDS: PRINIVIL PO SCH (08:06)
[2019-03-20] MEDS: TOPROL XL PO SCH (08:06)
[2019-03-20] MEDS: VIMPAT PO SCH ×4 (08:06→21:28)
[2019-03-20] MEDS: SEROQUEL PO SCH ×3 (08:06→21:28)
[2019-03-20] MEDS: ASPIRIN PO SCH (08:06)
[2019-03-20] MEDS: APRESOLINE PO SCH ×4 (08:06→21:27)
[2019-03-20] MEDS: LASIX PO SCH (08:06)
[2019-03-20] MEDS: CULTURELLE FOR KIDS PO SCH ×4 (08:06→21:27)
[2019-03-20] MEDS: NORVASC PO SCH (09:00)
[2019-03-20] MEDS: LANTUS INSULIN SUBQ SCH ×2 (09:00→21:28)
--- NOTE | 2019-03-20 13:48 | PROGRESS NOTE ---
DATE: 03/20/2019 SUBJECTIVE: Patient without any new complaints. PHYSICAL EXAMINATION: Vital Signs: Reviewed. Temperature 98 degrees, pulse 79, respiratory rate 18, blood pressure 153/69. General: Patient is awake, alert, currently in no distress. HEENT: Normocephalic. Neck: Supple. Cardiovascular: Regular rate. Chest: Clear. ASSESSMENT: 1. Diabetes. 2. Dementia. 3. Hypertension. 4. Failure to thrive. PLAN: We will continue symptomatic care as needed. cc: Ricky Daley MD
[2019-03-20] MEDS: FLOMAX PO SCH ×2 (19:39→21:27)
[2019-03-20] MEDS: LIPITOR PO SCH ×2 (19:39→21:28)
[2019-03-21] MEDS: HUMULIN R (PARKWAY) SUBQ SCH ×4 (06:41→23:12)
[2019-03-21] MEDS: SYNTHROID PO SCH (06:41)
[2019-03-21] MEDS: CULTURELLE FOR KIDS PO SCH ×3 (08:59→20:42)
[2019-03-21] MEDS: PRINIVIL PO SCH (08:59)
[2019-03-21] MEDS: SEROQUEL PO SCH ×2 (08:59→20:42)
[2019-03-21] MEDS: ASPIRIN PO SCH (08:59)
[2019-03-21] MEDS: NORVASC PO SCH (08:59)
[2019-03-21] MEDS: TOPROL XL PO SCH (08:59)
[2019-03-21] MEDS: LASIX PO SCH (08:59)
[2019-03-21] MEDS: APRESOLINE PO SCH ×3 (08:59→20:42)
[2019-03-21] MEDS: VIMPAT PO SCH ×3 (09:00→20:42)
[2019-03-21] MEDS: LANTUS INSULIN SUBQ SCH ×2 (09:00→23:12)
[2019-03-21] MEDS: LIPITOR PO SCH (20:42)
[2019-03-21] MEDS: FLOMAX PO SCH (20:42)
--- NOTE | 2019-03-22 05:19 | PROGRESS NOTE ---
DATE: 03/21/2019 SUBJECTIVE: No acute complaints reported. OBJECTIVE: Vital Signs: Temperature 98.8 degrees, pulse 80 per minute, respiratory rate 18 per minute, blood pressure 155/66, pulse oximetry 100% on room air. Cardiovascular: First and second heart sounds are audible, without any murmurs or gallops. Respiratory: No respiratory distress noted. Bilateral lung air entry is good, without any rales or rhonchi. Gastrointestinal: Abdomen is soft and nondistended. Normal bowel sounds are present. Neurologic: The patient is awake, but disoriented secondary to dementia. IMPRESSION: 1. Type 2 diabetes mellitus. 2. Hypertension. 3. Seizure disorder. 4. Dyslipidemia. 5. Dementia. PLAN: The patient will continue with current medications and care. She has been staying here at the hospital since we have not been able to find a placement, and the patient's social neglect. Her overall condition has remained stable. cc: Hernan Morelos MD
[2019-03-22] MEDS: SYNTHROID PO SCH (06:12)
[2019-03-22] MEDS: HUMULIN R (PARKWAY) SUBQ SCH ×4 (07:37→20:43)
[2019-03-22] MEDS: LANTUS INSULIN SUBQ SCH ×2 (08:17→20:42)
[2019-03-22] MEDS: TOPROL XL PO SCH (08:20)
[2019-03-22] MEDS: ASPIRIN PO SCH (08:20)
[2019-03-22] MEDS: LASIX PO SCH (08:20)
[2019-03-22] MEDS: VIMPAT PO SCH ×3 (08:20→20:42)
[2019-03-22] MEDS: CULTURELLE FOR KIDS PO SCH ×3 (08:20→20:43)
[2019-03-22] MEDS: SEROQUEL PO SCH ×2 (08:20→20:42)
[2019-03-22] MEDS: NORVASC PO SCH (08:20)
[2019-03-22] MEDS: APRESOLINE PO SCH ×3 (08:20→20:41)
[2019-03-22] MEDS: PRINIVIL PO SCH (08:20)
[2019-03-22] MEDS: LIPITOR PO SCH (20:42)
[2019-03-22] MEDS: FLOMAX PO SCH (20:43)
--- NOTE | 2019-03-22 20:49 | PROGRESS NOTE ---
DATE: 03/21/2019 SUBJECTIVE: Patient without any new complaints. PHYSICAL EXAMINATION: Vital Signs: Reviewed. Temperature 97.6 degrees, pulse 76, BP 173/63. Blood sugars 200s to low 300s. General: Patient is in no distress. She is lying in the bed. HEENT: Normocephalic. Neck: Supple. Cardiovascular: Regular rate. No murmurs. Chest: Clear. Abdomen: Soft. Extremities: Moves all extremities. ASSESSMENT: 1. Diabetes. 2. Adult failure to thrive. 3. Do Not Resuscitate. 4. Hypertension. 5. Social neglect. PLAN: We will continue patient in the hospital, continue symptomatic care, and wait for further arrangements for discharge. cc: Ricky Daley MD
[2019-03-23] MEDS: HUMULIN R (PARKWAY) SUBQ SCH ×4 (06:14→23:01)
[2019-03-23] MEDS: SYNTHROID PO SCH (06:15)
[2019-03-23] MEDS: CULTURELLE FOR KIDS PO SCH ×3 (10:03→20:50)
[2019-03-23] MEDS: TOPROL XL PO SCH (10:03)
[2019-03-23] MEDS: NORVASC PO SCH (10:03)
[2019-03-23] MEDS: LANTUS INSULIN SUBQ SCH ×2 (10:03→23:01)
[2019-03-23] MEDS: VIMPAT PO SCH ×3 (10:04→20:50)
[2019-03-23] MEDS: LASIX PO SCH (10:04)
[2019-03-23] MEDS: SEROQUEL PO SCH ×2 (10:04→20:50)
[2019-03-23] MEDS: ASPIRIN PO SCH (10:04)
[2019-03-23] MEDS: APRESOLINE PO SCH ×4 (10:04→20:51)
[2019-03-23] MEDS: PRINIVIL PO SCH (10:05)
--- NOTE | 2019-03-23 15:28 | PROGRESS NOTE ---
DATE: 03/23/2019 SUBJECTIVE: The patient has no complaint. OBJECTIVE: Vital Signs: Blood pressure 127/59, heart rate 80, respiratory rate 14, temperature 97.3, and 96% on room air. Cardiovascular: Regular rate and rhythm. Pulmonary: Bilateral breath sounds clear to auscultation. GI: Abdomen is soft, nontender, and nondistended. Bowel sounds are positive. No new labs. Sugars are under pretty good control for her in the 200s and 100s. PROBLEM LIST: 1. Diabetes, stable currently. 2. Failure to thrive with severe dementia, social neglect. We will continue to monitor. We are waiting for a safe outpatient plan for her and long-term care. She has no caregivers. cc: Zachery Bill MD
[2019-03-23] MEDS: LIPITOR PO SCH (20:51)
[2019-03-23] MEDS: FLOMAX PO SCH (20:51)
[2019-03-24] MEDS: SYNTHROID PO SCH (06:07)
[2019-03-24] MEDS: HUMULIN R (PARKWAY) SUBQ SCH ×4 (06:07→23:34)
[2019-03-24] MEDS: TOPROL XL PO SCH (08:32)
[2019-03-24] MEDS: ASPIRIN PO SCH (08:32)
[2019-03-24] MEDS: PRINIVIL PO SCH (08:33)
[2019-03-24] MEDS: SEROQUEL PO SCH ×2 (08:33→20:05)
[2019-03-24] MEDS: VIMPAT PO SCH ×3 (08:33→20:05)
[2019-03-24] MEDS: APRESOLINE PO SCH ×3 (08:33→20:05)
[2019-03-24] MEDS: LASIX PO SCH (08:33)
[2019-03-24] MEDS: NORVASC PO SCH (08:33)
[2019-03-24] MEDS: CULTURELLE FOR KIDS PO SCH ×3 (08:34→20:05)
[2019-03-24] MEDS: LANTUS INSULIN SUBQ SCH ×2 (08:35→20:06)
[2019-03-24] MEDS: MOTRIN PO PRN (20:05)
[2019-03-24] MEDS: FLOMAX PO SCH (20:05)
[2019-03-24] MEDS: LIPITOR PO SCH (20:05)
[2019-03-25] MEDS: SYNTHROID PO SCH ×2 (04:59→06:00)
[2019-03-25] MEDS: MOTRIN PO PRN (04:59)
[2019-03-25] MEDS: HUMULIN R (PARKWAY) SUBQ SCH ×3 (06:32→19:02)
[2019-03-25] MEDS: VIMPAT PO SCH ×3 (09:45→23:33)
[2019-03-25] MEDS: APRESOLINE PO SCH ×3 (09:46→23:33)
[2019-03-25] MEDS: PRINIVIL PO SCH (09:46)
[2019-03-25] MEDS: SEROQUEL PO SCH ×2 (09:46→23:33)
[2019-03-25] MEDS: LANTUS INSULIN SUBQ SCH ×2 (09:46→20:53)
[2019-03-25] MEDS: TOPROL XL PO SCH (09:46)
[2019-03-25] MEDS: CULTURELLE FOR KIDS PO SCH ×3 (09:46→23:33)
[2019-03-25] MEDS: ASPIRIN PO SCH (09:46)
[2019-03-25] MEDS: LASIX PO SCH (09:46)
[2019-03-25] MEDS: NORVASC PO SCH (09:46)
--- NOTE | 2019-03-25 18:01 | PROGRESS NOTE ---
DATE: 03/25/2019 SUBJECTIVE: Patient has no major complaints. OBJECTIVE: Blood pressure is 175/86, heart rate of 75, respiratory rate 16, temperature 97.4 degrees, 96% on room air.Cardiovascular: Regular rate and rhythm. Pulmonary: Bilateral breath sounds. Clear to auscultation. Gastrointestinal: Soft, nontender, nondistended. Bowel sounds are positive. LABORATORY DATA: Blood sugars were okay. PROBLEM LIST: 1. Diabetes. Patient is apparently stable, doing well. 2. Failure to thrive. We will continue treatment and follow closely. DISPOSITION: Pending clinical status. She is stable for discharge, but has no safe discharge and is not able to take care of herself. cc: Zachery Bill MD
[2019-03-25] MEDS: LIPITOR PO SCH (23:33)
[2019-03-25] MEDS: FLOMAX PO SCH (23:33)
[2019-03-26] MEDS: HUMULIN R (PARKWAY) SUBQ SCH ×5 (00:23→23:21)
[2019-03-26] MEDS: SYNTHROID PO SCH (06:12)
[2019-03-26] MEDS: PRINIVIL PO SCH (09:22)
[2019-03-26] MEDS: CULTURELLE FOR KIDS PO SCH ×3 (09:22→23:19)
[2019-03-26] MEDS: ASPIRIN PO SCH (09:22)
[2019-03-26] MEDS: TOPROL XL PO SCH (09:22)
[2019-03-26] MEDS: NORVASC PO SCH (09:22)
[2019-03-26] MEDS: LASIX PO SCH (09:22)
[2019-03-26] MEDS: VIMPAT PO SCH ×3 (09:22→23:20)
[2019-03-26] MEDS: SEROQUEL PO SCH ×2 (09:22→23:19)
[2019-03-26] MEDS: APRESOLINE PO SCH ×3 (09:22→23:20)
[2019-03-26] MEDS: LANTUS INSULIN SUBQ SCH ×2 (09:23→23:21)
--- NOTE | 2019-03-26 16:02 | PROGRESS NOTE ---
DATE: 03/26/2019 SUBJECTIVE: The patient has no major complaints. OBJECTIVE: Vital Signs: Blood pressure 131/65, heart rate 78, respiratory rate 20, temperature 98.5 degrees, 100% on room air. Cardiovascular: Regular rate and rhythm. Pulmonary: Bilateral breath sounds clear to auscultation. GI: Soft, nontender, nondistended. Bowel sounds are positive. LABORATORY DATA: No new data. PROBLEM LIST: 1. Diabetes. Appears to be relatively well controlled. She seems to be doing okay. No major complaints. 2. Failure to thrive. We will continue dietary supplements and follow. 3. Dementia. She is at her baseline but is unable to unfortunately take care of herself, so plan to let her continue care here until we have a safe option for discharge. cc: Zachery Bill MD
[2019-03-26] MEDS: LIPITOR PO SCH (23:19)
[2019-03-26] MEDS: FLOMAX PO SCH (23:20)
[2019-03-27] MEDS: MOTRIN PO PRN (06:11)
[2019-03-27] MEDS: SYNTHROID PO SCH (06:11)
[2019-03-27] MEDS: HUMULIN R (PARKWAY) SUBQ SCH ×4 (06:12→21:06)
--- NOTE | 2019-03-27 09:18 | PROGRESS NOTE ---
DATE: 03/27/2019 SUBJECTIVE: No acute complaints are reported. OBJECTIVE: Vital Signs: Temperature 97.6 degrees, pulse 66 per minute, respiratory rate 18 per minute, blood pressure 169/65, pulse oximetry 100% on room air. Cardiovascular System: First and second heart sounds are audible without any murmurs or gallops. Respiratory System: No respiratory distress noted. Bilateral lung air entry is good without any rales or rhonchi. Gastrointestinal System: Abdomen is benign. IMPRESSION: 1. Type 2 diabetes mellitus. 2. Hypertension. 3. Seizure disorder. 4. Dyslipidemia. 5. Dementia. PLAN: The patient will continue to receive current care here at [facility]. Her overall condition has been stable, but we have not been able to find a placement for her because of her family abandonment. cc: Hernan Morelos MD
[2019-03-27] MEDS: LASIX PO SCH (09:38)
[2019-03-27] MEDS: VIMPAT PO SCH ×3 (09:38→21:03)
[2019-03-27] MEDS: PRINIVIL PO SCH (09:38)
[2019-03-27] MEDS: ASPIRIN PO SCH (09:38)
[2019-03-27] MEDS: TOPROL XL PO SCH (09:38)
[2019-03-27] MEDS: NORVASC PO SCH (09:39)
[2019-03-27] MEDS: CULTURELLE FOR KIDS PO SCH ×3 (09:39→21:03)
[2019-03-27] MEDS: APRESOLINE PO SCH ×3 (09:39→21:03)
[2019-03-27] MEDS: LANTUS INSULIN SUBQ SCH ×2 (09:39→21:05)
[2019-03-27] MEDS: SEROQUEL PO SCH ×2 (09:44→21:03)
[2019-03-27] MEDS: FLOMAX PO SCH (21:03)
[2019-03-27] MEDS: LIPITOR PO SCH (21:03)
[2019-03-28] MEDS: HUMULIN R (PARKWAY) SUBQ SCH ×4 (06:39→20:39)
[2019-03-28] MEDS: SYNTHROID PO SCH (06:39)
[2019-03-28] MEDS: VIMPAT PO SCH ×3 (09:48→20:45)
[2019-03-28] MEDS: APRESOLINE PO SCH ×3 (09:48→20:45)
[2019-03-28] MEDS: NORVASC PO SCH (09:49)
[2019-03-28] MEDS: TOPROL XL PO SCH (09:49)
[2019-03-28] MEDS: SEROQUEL PO SCH ×2 (09:49→20:45)
[2019-03-28] MEDS: PRINIVIL PO SCH (09:49)
[2019-03-28] MEDS: CULTURELLE FOR KIDS PO SCH ×3 (09:50→20:45)
[2019-03-28] MEDS: LASIX PO SCH (09:50)
[2019-03-28] MEDS: ASPIRIN PO SCH (09:51)
[2019-03-28] MEDS: LANTUS INSULIN SUBQ SCH ×2 (11:50→20:40)
[2019-03-28] MEDS: LIPITOR PO SCH (20:45)
[2019-03-28] MEDS: FLOMAX PO SCH (20:45)
--- NOTE | 2019-03-29 06:03 | PROGRESS NOTE ---
DATE: 03/28/2019 SUBJECTIVE: The patient is in a very good mood and no complaints are reported by the staff. OBJECTIVE: Vital Signs: Temperature 98.2 degrees, pulse 77 per minute, respiratory rate 18 per minute, blood pressure 128/66, pulse oximetry 100% on room air. General: Patient is awake and alert. She does not appear to be in any acute distress. Cardiovascular System: First and second heart sounds are audible without any murmurs or gallops. Respiratory System: No respiratory distress noted. Bilateral lung air entry is good without any rales or rhonchi. GASTROINTESTINAL SYSTEM: Abdomen is benign. DIAGNOSTIC DATA: No new labs have been done. IMPRESSION: 1. Type 2 diabetes mellitus. 2. Hypertension. 3. Seizure disorder. 4. Dyslipidemia. 5. Dementia. 6. Social neglect. PLAN: The patient will continue to receive current care at [facility]. She is in stable condition medically, but we have not been able to find a placement for her because of social neglect and family abandonment. cc: Hernan Morelos MD
[2019-03-29] MEDS: HUMULIN R (PARKWAY) SUBQ SCH ×4 (06:07→21:13)
[2019-03-29] MEDS: SYNTHROID PO SCH (06:53)
[2019-03-29] MEDS: VIMPAT PO SCH ×3 (09:01→21:07)
[2019-03-29] MEDS: SEROQUEL PO SCH ×2 (09:01→21:07)
[2019-03-29] MEDS: TOPROL XL PO SCH (09:01)
[2019-03-29] MEDS: ASPIRIN PO SCH (09:02)
[2019-03-29] MEDS: PRINIVIL PO SCH (09:02)
[2019-03-29] MEDS: CULTURELLE FOR KIDS PO SCH ×3 (09:02→21:07)
[2019-03-29] MEDS: NORVASC PO SCH (09:02)
[2019-03-29] MEDS: LANTUS INSULIN SUBQ SCH ×2 (09:02→21:07)
[2019-03-29] MEDS: APRESOLINE PO SCH ×3 (09:02→21:07)
[2019-03-29] MEDS: LASIX PO SCH (09:02)
--- NOTE | 2019-03-29 17:12 | PROGRESS NOTE ---
DATE: 03/29/2019 SUBJECTIVE: Patient has no major complaints. OBJECTIVE: Blood pressure is 168/69, heart rate of 80, respiratory rate 16, temperature 97.6 degrees, 98% on room air.Cardiovascular: Regular rate and rhythm. Pulmonary: Bilateral breath sounds. Clear to auscultation. GI: Soft, nontender, nondistended. Bowel sounds are positive. LABORATORY DATA: Her blood sugar is still 200s to 300s. PROBLEM LIST: 1. Type 2 diabetes is stable for her. 2. Hypertension, continue regular medications. 3. History of seizure disorder, stable. 4. Dementia with significant intermittent behavioral components. She seems to be doing okay from that standpoint otherwise. 5. Continue to follow. cc: Zachery Bill MD
[2019-03-29] MEDS: LIPITOR PO SCH (21:07)
[2019-03-29] MEDS: FLOMAX PO SCH (21:07)
[2019-03-30] MEDS: SYNTHROID PO SCH (06:29)
[2019-03-30] MEDS: HUMULIN R (PARKWAY) SUBQ SCH ×4 (06:30→20:07)
[2019-03-30] MEDS: LASIX PO SCH (09:16)
[2019-03-30] MEDS: NORVASC PO SCH (09:16)
[2019-03-30] MEDS: CULTURELLE FOR KIDS PO SCH ×3 (09:16→20:07)
[2019-03-30] MEDS: SEROQUEL PO SCH ×2 (09:16→20:07)
[2019-03-30] MEDS: TOPROL XL PO SCH (09:16)
[2019-03-30] MEDS: PRINIVIL PO SCH (09:16)
[2019-03-30] MEDS: VIMPAT PO SCH ×3 (09:16→20:07)
[2019-03-30] MEDS: APRESOLINE PO SCH ×3 (09:16→20:07)
[2019-03-30] MEDS: LANTUS INSULIN SUBQ SCH ×2 (09:17→20:07)
[2019-03-30] MEDS: ASPIRIN PO SCH (09:17)
--- NOTE | 2019-03-30 19:47 | PROGRESS NOTE ---
SUBJECTIVE: No change. PHYSICAL EXAMINATION: Unchanged. Vital signs reviewed. PLAN: We will continue patient in the hospital until arrangements can be made for transfer. Continue to follow her blood pressures. Further orders as needed. cc: Ricky Daley MD MTDD
[2019-03-30] MEDS: FLOMAX PO SCH (20:07)
[2019-03-30] MEDS: LIPITOR PO SCH (20:07)
[2019-03-31] MEDS: SYNTHROID PO SCH (06:20)
[2019-03-31] MEDS: HUMULIN R (PARKWAY) SUBQ SCH ×4 (06:22→21:52)
[2019-03-31] MEDS: NORVASC PO SCH (09:59)
[2019-03-31] MEDS: APRESOLINE PO SCH ×3 (09:59→21:47)
[2019-03-31] MEDS: LASIX PO SCH (09:59)
[2019-03-31] MEDS: TOPROL XL PO SCH (09:59)
[2019-03-31] MEDS: SEROQUEL PO SCH ×2 (09:59→21:48)
[2019-03-31] MEDS: CULTURELLE FOR KIDS PO SCH ×3 (09:59→21:47)
[2019-03-31] MEDS: ASPIRIN PO SCH (09:59)
[2019-03-31] MEDS: PRINIVIL PO SCH (09:59)
[2019-03-31] MEDS: VIMPAT PO SCH ×3 (09:59→21:48)
[2019-03-31] MEDS: FLOMAX PO SCH (21:47)
[2019-03-31] MEDS: LIPITOR PO SCH (21:47)
[2019-03-31] MEDS: LANTUS INSULIN SUBQ SCH (21:48)
--- NOTE | 2019-03-31 21:48 | PROGRESS NOTE ---
DATE: 03/31/2019 SUBJECTIVE: Patient seen and examined. She has no new complaints. PHYSICAL EXAMINATION: Vital signs reviewed. Temperature 98 degrees, pulse 78, respiratory 20, BP 164/73. Blood sugars 57 to 389. Physical is unchanged. ASSESSMENT: 1. Diabetes. Going to adjust her Lantus as it does appear that she is having more lows late in the evening. We are going to decrease her nighttime Lantus and increase her daytime Lantus, and will follow. 2. Hypertension. 3. Adult failure to thrive. cc: Ricky Daley MD
[2019-04-01] MEDS: HUMULIN R (PARKWAY) SUBQ SCH ×4 (06:20→20:11)
[2019-04-01] MEDS: SYNTHROID PO SCH (06:20)
[2019-04-01] MEDS: APRESOLINE PO SCH ×3 (10:36→20:10)
[2019-04-01] MEDS: CULTURELLE FOR KIDS PO SCH ×3 (10:36→20:10)
[2019-04-01] MEDS: PRINIVIL PO SCH (10:36)
[2019-04-01] MEDS: ASPIRIN PO SCH (10:36)
[2019-04-01] MEDS: SEROQUEL PO SCH ×2 (10:36→20:10)
[2019-04-01] MEDS: VIMPAT PO SCH ×3 (10:37→20:10)
[2019-04-01] MEDS: NORVASC PO SCH (10:37)
[2019-04-01] MEDS: TOPROL XL PO SCH (10:37)
[2019-04-01] MEDS: LANTUS INSULIN SUBQ SCH ×2 (10:37→20:12)
[2019-04-01] MEDS: LASIX PO SCH (10:37)
[2019-04-01] MEDS: FLOMAX PO SCH (20:10)
[2019-04-01] MEDS: LIPITOR PO SCH (20:10)
--- NOTE | 2019-04-01 23:56 | PROGRESS NOTE ---
DATE: 04/01/2019 SUBJECTIVE: Patient without any new complaints. She is lying in the bed, very verbal today. PHYSICAL EXAM: Vital Signs: She is afebrile, pulse 70, BP 155/60. General: She is in no current distress. LABORATORY: Blood sugars elevated 200 to 340s. ASSESSMENT: 1. Type 2 diabetes. 2. Hypertension. 3. Seizures. 4. Dementia. PLAN: We will continue to follow until she can transition to long-term care. cc: Ricky Daley MD
[2019-04-02] MEDS: HUMULIN R (PARKWAY) SUBQ SCH ×4 (06:03→20:10)
[2019-04-02] MEDS: SYNTHROID PO SCH (06:03)
[2019-04-02] MEDS: PRINIVIL PO SCH (08:47)
[2019-04-02] MEDS: NORVASC PO SCH (08:47)
[2019-04-02] MEDS: LANTUS INSULIN SUBQ SCH ×2 (08:47→20:10)
[2019-04-02] MEDS: SEROQUEL PO SCH ×2 (08:47→20:09)
[2019-04-02] MEDS: CULTURELLE FOR KIDS PO SCH ×3 (08:47→20:10)
[2019-04-02] MEDS: TOPROL XL PO SCH (08:47)
[2019-04-02] MEDS: LASIX PO SCH (08:47)
[2019-04-02] MEDS: APRESOLINE PO SCH ×3 (08:47→20:08)
[2019-04-02] MEDS: VIMPAT PO SCH ×3 (08:47→20:09)
[2019-04-02] MEDS: ASPIRIN PO SCH (08:48)
--- NOTE | 2019-04-02 12:17 | PROGRESS NOTE ---
DATE: 04/02/2019 SUBJECTIVE: Patient with no new complaints. PHYSICAL EXAMINATION: Vital Signs: Reviewed. Temperature 98 degrees, pulse 81, respiratory 20, blood pressure 169/97. General: Patient is lying in bed. She has no focal changes on her physical exam. LABORATORY DATA: Blood sugars 190 to 370. ASSESSMENT: 1. Diabetes. 2. Hypertension. 3. History of seizure disorder. 4. Dementia. PLAN: We will continue patient in the hospital. Continue to follow until long-term arrangements can be arranged. cc: Ricky Daley MD
[2019-04-02] MEDS: MOTRIN PO PRN (20:09)
[2019-04-02] MEDS: LIPITOR PO SCH (20:09)
[2019-04-02] MEDS: FLOMAX PO SCH (20:10)
[2019-04-03] MEDS: HUMULIN R (PARKWAY) SUBQ SCH ×4 (06:03→20:25)
[2019-04-03] MEDS: SYNTHROID PO SCH (06:04)
--- NOTE | 2019-04-03 10:07 | PROGRESS NOTE ---
DATE: 04/03/2019 SUBJECTIVE: No acute complaints are reported. The patient is not able to properly communicate because of dementia. OBJECTIVE: Vital Signs: Temperature 97.7 degrees, pulse 76 per minute, respiratory rate 20 per minute, blood pressure 125/55, pulse oximetry 98% on room air. General: Patient is awake. She does not appear to be in any acute distress. Cardiovascular System: First and second heart sounds are audible without any murmurs or gallops. Respiratory System: No respiratory distress noted. Bilateral lung air entry is good without any rales or rhonchi. Gastrointestinal system: Abdomen is soft and nondistended. Normal bowel sounds are present. IMPRESSION: 1. Type 2 diabetes mellitus. 2. Hypertension. 3. Seizure disorder. 4. Dementia. 5. Social neglect. PLAN: The patient will continue with current medications and care here at [facility]. She is in overall stable condition, but has not been able to be transferred out because of placement issues. Her family has abandoned her and we have not been able to find a place for her to be transferred at this time. cc: Hernan Morelos MD
[2019-04-03] MEDS: CULTURELLE FOR KIDS PO SCH ×3 (10:13→20:25)
[2019-04-03] MEDS: LASIX PO SCH (10:14)
[2019-04-03] MEDS: ASPIRIN PO SCH (10:15)
[2019-04-03] MEDS: APRESOLINE PO SCH ×4 (10:15→20:24)
[2019-04-03] MEDS: LANTUS INSULIN SUBQ SCH ×2 (10:16→20:25)
[2019-04-03] MEDS: NORVASC PO SCH (10:17)
[2019-04-03] MEDS: PRINIVIL PO SCH (10:17)
[2019-04-03] MEDS: SEROQUEL PO SCH ×2 (10:18→20:24)
[2019-04-03] MEDS: TOPROL XL PO SCH (10:18)
[2019-04-03] MEDS: VIMPAT PO SCH ×3 (10:19→20:24)
[2019-04-03] MEDS: FLOMAX PO SCH (20:25)
[2019-04-03] MEDS: LIPITOR PO SCH (20:25)
[2019-04-04] MEDS: HUMULIN R (PARKWAY) SUBQ SCH ×4 (06:16→20:10)
[2019-04-04] MEDS: SYNTHROID PO SCH (06:16)
[2019-04-04] MEDS: CULTURELLE FOR KIDS PO SCH ×3 (09:12→19:51)
[2019-04-04] MEDS: LANTUS INSULIN SUBQ SCH ×2 (09:12→20:08)
[2019-04-04] MEDS: VIMPAT PO SCH ×3 (09:13→19:52)
[2019-04-04] MEDS: ASPIRIN PO SCH (09:13)
[2019-04-04] MEDS: APRESOLINE PO SCH ×3 (09:13→19:53)
[2019-04-04] MEDS: NORVASC PO SCH (09:13)
[2019-04-04] MEDS: SEROQUEL PO SCH ×2 (09:13→19:52)
[2019-04-04] MEDS: PRINIVIL PO SCH (09:13)
[2019-04-04] MEDS: TOPROL XL PO SCH (09:13)
[2019-04-04] MEDS: LASIX PO SCH (09:13)
[2019-04-04] MEDS: FLOMAX PO SCH (19:52)
[2019-04-04] MEDS: LIPITOR PO SCH (19:55)
--- NOTE | 2019-04-05 05:57 | PROGRESS NOTE ---
DATE: 04/04/2019 SUBJECTIVE: No acute complaints are reported and patient is feeling well this morning. OBJECTIVE: Vital Signs: Temperature 97.8 degrees, pulse 70 per minute, respiratory rate 20 per minute, blood pressure 131/66, pulse oximetry 99% on room air. General: Patient is awake and alert. She does not appear to be in any acute distress. Cardiovascular System: First and second heart sounds are audible without murmurs or gallops. Respiratory System: No respiratory distress noted. Bilateral lung air entry is good without any rales or rhonchi. Gastrointestinal System: Abdomen is soft and nondistended. Normal bowel sounds are present. DIAGNOSTIC DATA: No new labs have been done. IMPRESSION: 1. Type 2 diabetes mellitus. 2. Hypertension. 3. Seizure disorder. 4. Dyslipidemia. 5. Senile dementia. 6. Social neglect. PLAN: The patient will be continued with current medications and care. Overall, her condition has been stable, but we have not been able to find a placement because of legal issues. She has been abandoned by her family and we have so far not been able to get her placement decided through legal means. cc: Hernan Morelos MD
[2019-04-05] MEDS: APRESOLINE PO SCH ×4 (06:33→20:53)
[2019-04-05] MEDS: CULTURELLE FOR KIDS PO SCH ×4 (06:33→20:53)
[2019-04-05] MEDS: SEROQUEL PO SCH ×3 (06:34→20:53)
[2019-04-05] MEDS: VIMPAT PO SCH ×4 (06:34→20:53)
[2019-04-05] MEDS: FLOMAX PO SCH ×2 (06:34→20:53)
[2019-04-05] MEDS: HUMULIN R (PARKWAY) SUBQ SCH ×4 (07:08→20:54)
[2019-04-05] MEDS: SYNTHROID PO SCH (07:30)
[2019-04-05] MEDS: TOPROL XL PO SCH (11:23)
[2019-04-05] MEDS: PRINIVIL PO SCH (11:24)
[2019-04-05] MEDS: NORVASC PO SCH (11:24)
[2019-04-05] MEDS: LASIX PO SCH (11:24)
[2019-04-05] MEDS: ASPIRIN PO SCH (11:25)
[2019-04-05] MEDS: LANTUS INSULIN SUBQ SCH ×2 (11:25→20:54)
--- NOTE | 2019-04-05 20:45 | PROGRESS NOTE ---
DATE: 04/05/2019 SUBJECTIVE: Patient has no complaints. PHYSICAL EXAMINATION: Vital Signs: Reviewed. Temperature 97.7 degrees, pulse 77, respiratory rate 18, BP 159/63. General: Patient is in no distress. She is quite active this morning. HEENT: Normocephalic. Neck: Supple. Cardiovascular: Regular rate. Chest: Clear. ASSESSMENT: 1. Do not resuscitate level 1. 2. Adult failure to thrive with social neglect. 3. Dementia. 4. Seizure disorder. 5. Hypertension. 6. Type 2 diabetes. PLAN: We will continue patient in the hospital. Continue insulin as well as sliding scale insulin. Continue to follow her blood pressures. cc: Ricky Daley MD
[2019-04-05] MEDS: LIPITOR PO SCH (20:53)
[2019-04-06] MEDS: HUMULIN R (PARKWAY) SUBQ SCH ×4 (06:49→20:57)
[2019-04-06] MEDS: SYNTHROID PO SCH (06:49)
[2019-04-06] MEDS: APRESOLINE PO SCH ×3 (09:55→20:57)
[2019-04-06] MEDS: LASIX PO SCH (09:55)
[2019-04-06] MEDS: PRINIVIL PO SCH (09:55)
[2019-04-06] MEDS: TOPROL XL PO SCH (09:55)
[2019-04-06] MEDS: VIMPAT PO SCH ×3 (09:55→20:56)
[2019-04-06] MEDS: NORVASC PO SCH (09:55)
[2019-04-06] MEDS: SEROQUEL PO SCH ×2 (09:55→20:57)
[2019-04-06] MEDS: CULTURELLE FOR KIDS PO SCH ×3 (09:55→20:57)
[2019-04-06] MEDS: ASPIRIN PO SCH (09:56)
[2019-04-06] MEDS: LANTUS INSULIN SUBQ SCH ×2 (10:01→20:58)
--- NOTE | 2019-04-06 12:48 | PROGRESS NOTE ---
DATE: 04/06/2019 SUBJECTIVE: The patient is nonverbal to me. No acute issues noted per nursing staff overnight. OBJECTIVE: Vital Signs: Temperature 97.9 degrees, heart rate 85, respiratory rate 16, blood pressure 159/88, O2 saturation 100% on room air. General: This is a chronically ill-appearing, 83-year-old, female, lying in bed in no acute distress. Cardiovascular: S1, S2 heard. No murmurs, gallops, or rubs. Respiratory: Clear bilaterally to auscultation. Neurological: The patient is nonverbal. Moves all 4 extremities spontaneously. ASSESSMENT: 1. Diabetes mellitus type 2. 2. Hypertension. 3. Seizure disorder. 4. Dementia. 5. Adult failure to thrive. 6. Social neglect. 7. DO NOT RESUSCITATE level 1. PLAN: At this point, the patient is being monitored in the hospital, and awaiting placement for this patient. cc: Onur Parada MD
[2019-04-06] MEDS: FLOMAX PO SCH (20:57)
[2019-04-06] MEDS: LIPITOR PO SCH (20:57)
[2019-04-07] MEDS: SYNTHROID PO SCH (06:26)
[2019-04-07] MEDS: HUMULIN R (PARKWAY) SUBQ SCH ×4 (06:28→22:20)
[2019-04-07] MEDS: APRESOLINE PO SCH ×3 (11:30→22:23)
[2019-04-07] MEDS: LASIX PO SCH (11:30)
[2019-04-07] MEDS: SEROQUEL PO SCH ×2 (11:30→22:22)
[2019-04-07] MEDS: TOPROL XL PO SCH (11:30)
[2019-04-07] MEDS: NORVASC PO SCH (11:30)
[2019-04-07] MEDS: CULTURELLE FOR KIDS PO SCH ×3 (11:30→22:22)
[2019-04-07] MEDS: ASPIRIN PO SCH (11:30)
[2019-04-07] MEDS: LANTUS INSULIN SUBQ SCH ×2 (11:31→22:20)
[2019-04-07] MEDS: VIMPAT PO SCH ×3 (11:31→22:21)
[2019-04-07] MEDS: PRINIVIL PO SCH (11:31)
--- NOTE | 2019-04-07 13:30 | PROGRESS NOTE ---
DATE: 04/07/2019 SUBJECTIVE: The patient continues to be nonverbal to me. No acute noted as per nursing staff overnight. OBJECTIVE: Vital Signs: Temperature 98.4, heart rate 71, respiratory rate 18, blood pressure 147/75, O2 saturation 98% on room air. General Examination: This is a chronically ill-appearing, 83-year-old, - [place] female, lying in bed in no acute distress. Respiratory Exam: Clear bilaterally to auscultation. No work of breathing or using accessory muscles. Cardiovascular Exam: S1, S2 heard. No murmurs, gallops, or rub. Neurological Exam: The patient is nonverbal. Moves all 4 extremities spontaneously. ASSESSMENT: 1. Diabetes mellitus type 2. 2. Hypertension. 3. Seizure disorder. 4. Dementia. 5. Adult failure to thrive. 6. Social neglect. 7. Do Not Resuscitate level 1. PLAN: Will continue to await placement for this patient. cc: Onur Parada MD
[2019-04-07] MEDS: FLOMAX PO SCH (22:21)
[2019-04-07] MEDS: LIPITOR PO SCH (22:22)
[2019-04-08] MEDS: HUMULIN R (PARKWAY) SUBQ SCH ×4 (07:44→22:46)
[2019-04-08] MEDS: SYNTHROID PO SCH (07:44)
[2019-04-08] MEDS: ASPIRIN PO SCH (11:42)
[2019-04-08] MEDS: PRINIVIL PO SCH (11:42)
[2019-04-08] MEDS: TOPROL XL PO SCH (11:42)
[2019-04-08] MEDS: CULTURELLE FOR KIDS PO SCH ×3 (11:43→22:45)
[2019-04-08] MEDS: LANTUS INSULIN SUBQ SCH ×2 (11:43→22:46)
[2019-04-08] MEDS: NORVASC PO SCH (11:43)
[2019-04-08] MEDS: LASIX PO SCH (11:43)
[2019-04-08] MEDS: APRESOLINE PO SCH ×3 (11:44→22:46)
[2019-04-08] MEDS: SEROQUEL PO SCH ×2 (11:44→22:46)
[2019-04-08] MEDS: VIMPAT PO SCH ×3 (11:47→22:45)
--- NOTE | 2019-04-08 13:14 | PROGRESS NOTE ---
DATE: 04/08/2019 SUBJECTIVE: No acute issues noted as per nursing staff overnight. Patient continues to be nonverbal and yells at times. OBJECTIVE: Vital Signs: Temperature 97.9 degrees, heart rate 69, respiratory rate 18, blood pressure 143/59, O2 saturation 100% on room air. General: On examination, this is a chronically ill-appearing 83-year-old female lying in bed, in no acute distress. Cardiovascular: S1, S2 heard. No murmurs, gallops, or rubs. Respiratory: Clear bilaterally to auscultation. No work of breathing or using accessory muscles. Neurological: Patient is nonverbal. Moves 4 extremities spontaneously. ASSESSMENT: 1. Diabetes mellitus type 2. 2. Hypertension. 3. Seizure disorder. 4. Dementia. 5. Failure to thrive. 6. Social neglect. CODE STATUS: Do not resuscitate. PLAN: We will continue to await placement for this patient. cc: Onur Parada MD MTDD
[2019-04-08] MEDS: FLOMAX PO SCH (22:46)
[2019-04-08] MEDS: LIPITOR PO SCH (22:46)
[2019-04-09] MEDS: HUMULIN R (PARKWAY) SUBQ SCH ×4 (06:39→20:02)
[2019-04-09] MEDS: SYNTHROID PO SCH (06:39)
[2019-04-09] MEDS: LASIX PO SCH (09:09)
[2019-04-09] MEDS: APRESOLINE PO SCH ×3 (09:10→20:01)
[2019-04-09] MEDS: SEROQUEL PO SCH ×2 (09:10→20:01)
[2019-04-09] MEDS: PRINIVIL PO SCH (09:10)
[2019-04-09] MEDS: VIMPAT PO SCH ×3 (09:10→20:01)
[2019-04-09] MEDS: CULTURELLE FOR KIDS PO SCH ×3 (09:10→20:01)
[2019-04-09] MEDS: NORVASC PO SCH (09:10)
[2019-04-09] MEDS: TOPROL XL PO SCH (09:10)
[2019-04-09] MEDS: ASPIRIN PO SCH (09:10)
[2019-04-09] MEDS: LANTUS INSULIN SUBQ SCH ×2 (09:11→20:02)
--- NOTE | 2019-04-09 12:05 | PROGRESS NOTE ---
DATE: 04/09/2019 SUBJECTIVE: The patient continues to be nonverbal, yells at times. No acute issues noted per nursing staff overnight. OBJECTIVE: Vital Signs: Temperature 98.7 degrees, heart rate 74, respiratory rate, 16 blood pressure 153/89, O2 saturation 100% on room air. General: This is a chronically ill-appearing 83-year-old female lying in bed, in no acute distress. Cardiovascular: S1, S2 heard. No murmurs, gallops, or rubs. Respiratory: Minimal coarse breath sounds in both pulmonary bases. Neurological: Patient continues to be confused and demented. ASSESSMENT: 1. Diabetes mellitus type 2. 2. Hypertension. 3. Seizure disorder. 4. Dementia. 5. Failure to thrive. 6. Social neglect. 7. Code status: Do not resuscitate level 1. 8. Will continue to await placement for this patient. cc: Onur Parada MD
[2019-04-09] MEDS: FLOMAX PO SCH (20:01)
[2019-04-09] MEDS: LIPITOR PO SCH (20:01)
[2019-04-10] MEDS: SYNTHROID PO SCH (06:28)
[2019-04-10] MEDS: HUMULIN R (PARKWAY) SUBQ SCH ×4 (06:30→20:04)
[2019-04-10] MEDS: TOPROL XL PO SCH (09:05)
[2019-04-10] MEDS: SEROQUEL PO SCH ×2 (09:05→19:59)
[2019-04-10] MEDS: LANTUS INSULIN SUBQ SCH ×2 (09:05→20:04)
[2019-04-10] MEDS: LASIX PO SCH (09:05)
[2019-04-10] MEDS: APRESOLINE PO SCH ×3 (09:05→19:59)
[2019-04-10] MEDS: VIMPAT PO SCH ×3 (09:05→19:59)
[2019-04-10] MEDS: CULTURELLE FOR KIDS PO SCH ×4 (09:05→20:03)
[2019-04-10] MEDS: PRINIVIL PO SCH (09:05)
[2019-04-10] MEDS: ASPIRIN PO SCH (09:05)
[2019-04-10] MEDS: NORVASC PO SCH (09:05)
--- NOTE | 2019-04-10 09:48 | PROGRESS NOTE ---
DATE: 04/10/2019 SUBJECTIVE: Patient denies having any complaints. Nursing did not report any problems. OBJECTIVE: Vital Signs: Temperature 97.2 degrees, pulse 65 per minute, respiratory rate 20 per minute, blood pressure 170/72, pulse oximetry 98% on room air. She does have fluctuating blood pressure readings and the day before yesterday the blood pressure was 132/47 and the day before was 128/52. Cardiovascular System: First and second heart sounds are audible without any murmurs or gallops. Respiratory System: No respiratory distress noted. Bilateral lung air entry is good without any rales or rhonchi. Gastrointestinal System: Abdomen is soft and nondistended. Normal bowel sounds are present. IMPRESSION: 1. Type 2 diabetes mellitus. 2. Hypertension. 3. Seizure disorder. 4. Dyslipidemia. 5. Dementia. 6. Social neglect. PLAN: The patient's overall condition has been stable and therefore, we are going to continue with current medications and care. We will continue providing her supportive care. We understand that the patient has not been able to be discharged because of family's abandonment. There is social neglect and because of which we will not be able to be discharging her unless we find permanent placement. cc: Hernan Morelos MD
[2019-04-10] MEDS: LIPITOR PO SCH ×2 (19:58→20:04)
[2019-04-10] MEDS: FLOMAX PO SCH ×2 (19:58→20:03)
[2019-04-11] MEDS: SYNTHROID PO SCH (06:23)
[2019-04-11] MEDS: HUMULIN R (PARKWAY) SUBQ SCH ×4 (06:25→20:13)
[2019-04-11] MEDS: VIMPAT PO SCH ×4 (10:56→20:12)
[2019-04-11] MEDS: APRESOLINE PO SCH ×4 (10:56→20:12)
[2019-04-11] MEDS: ASPIRIN PO SCH (10:56)
[2019-04-11] MEDS: CULTURELLE FOR KIDS PO SCH ×4 (10:56→20:12)
[2019-04-11] MEDS: TOPROL XL PO SCH (10:56)
[2019-04-11] MEDS: SEROQUEL PO SCH ×2 (10:56→20:12)
[2019-04-11] MEDS: LASIX PO SCH (10:56)
[2019-04-11] MEDS: NORVASC PO SCH (10:56)
[2019-04-11] MEDS: PRINIVIL PO SCH (10:56)
[2019-04-11] MEDS: LANTUS INSULIN SUBQ SCH ×2 (10:57→20:13)
--- NOTE | 2019-04-11 13:08 | PROGRESS NOTE ---
DATE: 04/11/2019 SUBJECTIVE: The patient is fine. No acute issues noted as per nursing staff overnight. OBJECTIVE: Vital signs: Temperature 98.5 degrees, heart rate 84, respiratory rate 19, blood pressure 145/62, O2 saturation 100% on room air. General: This is a chronically ill-appearing 83- year-old female lying in bed, in no acute distress. Cardiovascular: S1, S2 heard. No murmurs, gallops, or rubs. Regular rate and rhythm. Neurological: The patient continues to be confused and demented and sometimes he yells. ASSESSMENT: 1. Diabetes mellitus type 2. 2. Hypertension. 3. Seizure disorder. 4. Dementia. 5. Failure to thrive. 6. Social neglect. 7. Code status. Do not resuscitate level 1. DISPOSITION: We will continue to await placement for this patient. cc: Onur Parada MD
[2019-04-11] MEDS: FLOMAX PO SCH (20:12)
[2019-04-11] MEDS: LIPITOR PO SCH (20:12)
[2019-04-12] MEDS: SYNTHROID PO SCH (06:35)
[2019-04-12] MEDS: HUMULIN R (PARKWAY) SUBQ SCH ×4 (06:35→21:38)
[2019-04-12] MEDS: CULTURELLE FOR KIDS PO SCH ×3 (09:09→20:07)
[2019-04-12] MEDS: ASPIRIN PO SCH (09:09)
[2019-04-12] MEDS: LASIX PO SCH (09:09)
[2019-04-12] MEDS: NORVASC PO SCH (09:09)
[2019-04-12] MEDS: VIMPAT PO SCH ×3 (09:09→20:07)
[2019-04-12] MEDS: LANTUS INSULIN SUBQ SCH ×2 (09:09→21:38)
[2019-04-12] MEDS: PRINIVIL PO SCH (09:09)
[2019-04-12] MEDS: TOPROL XL PO SCH (09:09)
[2019-04-12] MEDS: SEROQUEL PO SCH ×2 (09:09→20:06)
[2019-04-12] MEDS: APRESOLINE PO SCH ×3 (09:09→20:07)
--- NOTE | 2019-04-12 15:30 | PROGRESS NOTE ---
DATE: 04/12/2019 SUBJECTIVE: According to nursing staff, no acute issues noted. The patient is nonverbal and yells at times. OBJECTIVE: Vital Signs: Temperature 97.5 degrees, heart rate 72, respiratory rate 17, blood pressure 157/72, O2 saturation 100% on room air. General Examination: This is a chronically ill- appearing, 83-year-old, female lying in bed, in no acute distress. Cardiovascular Examination: S1 and S2 heard. No murmurs, gallops, or rubs. Regular rate and rhythm. Respiratory Examination: Clear bilaterally to auscultation. Neurological Examination: The patient continues to be confused and demented. Moves 4 extremities spontaneously. ASSESSMENT: 1. Diabetes mellitus type 2. 2. Hypertension. 3. Seizure disorder. 4. Dementia. 5. Failure to thrive. 6. Social neglect. 7. Code status. Do Not Resuscitate level 1. 8. Disposition. Apparently, there is a bed for her in a local rehab facility for next Friday. We will continue to monitor. cc: Onur Parada MD
[2019-04-12] MEDS: FLOMAX PO SCH (20:06)
[2019-04-12] MEDS: LIPITOR PO SCH (20:07)
[2019-04-13] MEDS: SYNTHROID PO SCH (05:59)
[2019-04-13] MEDS: HUMULIN R (PARKWAY) SUBQ SCH ×4 (06:19→20:30)
[2019-04-13] MEDS: PRINIVIL PO SCH (08:42)
[2019-04-13] MEDS: NORVASC PO SCH (08:42)
[2019-04-13] MEDS: ASPIRIN PO SCH (08:42)
[2019-04-13] MEDS: CULTURELLE FOR KIDS PO SCH ×3 (08:42→20:30)
[2019-04-13] MEDS: TOPROL XL PO SCH (08:42)
[2019-04-13] MEDS: APRESOLINE PO SCH ×3 (08:42→20:30)
[2019-04-13] MEDS: SEROQUEL PO SCH ×2 (08:42→20:30)
[2019-04-13] MEDS: LASIX PO SCH (08:43)
[2019-04-13] MEDS: VIMPAT PO SCH ×3 (08:43→20:29)
[2019-04-13] MEDS: LANTUS INSULIN SUBQ SCH ×2 (08:43→20:30)
[2019-04-13] MEDS: ZOFRAN ODT PO PRN (12:09)
--- NOTE | 2019-04-13 14:40 | Diag Imaging Result Doc PS360 ---
CHEST-PORTABLE - 04/13/2019 INDICATION: Rehab placement COMPARISON: 10/18/2018 FINDINGS: Lung volumes are critically low with central crowding. No infiltrates or definite edema. Heart size is borderline. No large pleural effusion. Stable catheter tubing along the body wall. IMPRESSION: Critically low lung volumes but no definite acute disease. Electronically signed by Kelby Lewis 04/13/2019 2:38 PM
--- NOTE | 2019-04-13 19:33 | PROGRESS NOTE ---
DATE: 04/13/2019 Ms. Bajwa is under stable condition. She is in no distress. PHYSICAL EXAMINATION: Vital Signs: Reviewed. Blood pressure is elevated at 171/66, temperature 97 degrees, pulse 73. General: Patient is in no respiratory distress. She is pleasant. She is awake, alert. Physical is unchanged. ASSESSMENT: 1. Type 2 diabetes. 2. Hypertension. 3. Seizure disorder. 4. Dementia. 5. Adult failure to thrive. 6. Social neglect. 7. Do not resuscitate level 1. PLAN: The patient's blood sugars continue to remain quite sporadic currently from 135 to 365. We are going to continue to treat symptomatically as well as baseline Lantus, will follow. Hopefully, she can transition to rehab soon. cc: Ricky Daley MD
[2019-04-13] MEDS: LIPITOR PO SCH (20:29)
[2019-04-13] MEDS: FLOMAX PO SCH (21:37)
[2019-04-14] MEDS: SYNTHROID PO SCH (06:15)
[2019-04-14] MEDS: HUMULIN R (PARKWAY) SUBQ SCH ×2 (06:15→13:15)
[2019-04-14 07:17] VITALS: BP 129/109
[2019-04-14] MEDS: SEROQUEL PO SCH (08:44)
[2019-04-14] MEDS: VIMPAT PO SCH (08:44)
[2019-04-14] MEDS: CULTURELLE FOR KIDS PO SCH (08:44)
[2019-04-14] MEDS: PRINIVIL PO SCH (08:44)
[2019-04-14] MEDS: ASPIRIN PO SCH (08:44)
[2019-04-14] MEDS: APRESOLINE PO SCH (08:44)
[2019-04-14] MEDS: NORVASC PO SCH (08:45)
[2019-04-14] MEDS: LASIX PO SCH (08:45)
[2019-04-14] MEDS: TOPROL XL PO SCH (08:45)
[2019-04-14] MEDS: LANTUS INSULIN SUBQ SCH (08:45)
--- NOTE | 2019-04-14 10:09 | DISCHARGE SUMMARY ---
ADMISSION DATE: 11/14/2017 DISCHARGE DATE: 04/14/2019 PRIMARY CARE PROVIDER: None. INITIAL PERTINENT PROCEDURES: 1. 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 2. Abdominal ultrasound: Left nephrolithiasis, borderline dilatation of the common bile duct, gallbladder surgically absent. 3. Follow-up head CT showed stable advanced chronic changes but no definite acute intracranial pathology. 4. Right shoulder showed degenerative arthropathy with a high riding humeral head, which can be associated with rotator cuff injury. 5. EEG: Abnormal. Showed moderate to generalized slowing indicative of moderate nonspecific encephalopathy. 6. In 2019, two more head CTs that did not show any changes. 7. In 2019, chest, abdomen and pelvis CT: Significant worsening of bilateral infiltrates in lungs, which were nonspecific, severe diffuse constipation, cystitis, nonobstructing left renal stones. INITIAL ADMISSION DIAGNOSES: 1. Back in November 2017, urinary tract infection. 2. Hypokalemia. 3. Diabetes mellitus with hyperglycemia. 4. Acute dementia, likely metabolic encephalopathy caused by urinary tract infection. 5. Acute hepatitis. AST and ALT were both elevated. DISCHARGE DIAGNOSES: 1. Type 2 diabetes. 2. Hypertension. 3. Seizure disorder. 4. Dementia. 5. Adult failure to thrive. 6. Social neglect. 7. Do not resuscitate, level 1. HOSPITAL COURSE: Briefly, Ms. Bajwa is an 83-year-old female who was initially admitted back on 11/14/2017. She was brought to the ED via ambulance. The family was not with her. They did report that she had been agitated, anxious, hostile, and restless. She was found to have a urinary tract infection, acute delirium, diabetes with hyperglycemia, and acute hepatitis. She was initially admitted to the hospital and was started on IV fluids for fluid volume depletion and was placed on IV antibiotics. She did overcome all of her acute illnesses. She remains with dementia, adult failure to thrive, social neglect, and a DNR level 1. She did have a bout of pneumonia that she was treated for at some point in her admission. Unfortunately, she had a prolonged hospitalization of 516 days to be exact, secondary to legal issues with the family. DHR was involved as well as technician [employer]. They now have all of her affair settled. She will be discharged to a long-term [facility] facility. VITAL SIGNS: At time of discharge, temperature was 97.4 degrees, heart rate 75, respirations 16, blood pressure 129/109, O2 100% on room air. DISCHARGE DIET: Diabetic. DISCHARGE MEDICATIONS: Tylenol 650 mg p.o. q.6 hours p.r.n. 1. Norvasc 10 mg p.o. daily. 2. Aspirin 325 mg p.o. daily. 3. Lipitor 40 mg p.o. at bedtime. 4. Lasix 40 mg p.o. daily. 5. Apresoline 50 mg p.o. t.i.d. 6. Ibuprofen 400 mg p.o. q.6 hours p.r.n. 7. Lantus 19 units subcutaneous daily. 8. Lantus 10 units subcutaneous at bedtime. 9. Vimpat 150 mg p.o. t.i.d. at 9:15 and 2100 hours. 10. Lactobacillus, Culturelle for Kids, 1 each p.o. t.i.d. at 9:15 and 2100 hours. 11. Synthroid 75 mcg. 12. Prinivil 40 mg p.o. daily. 13. Metoprolol-XL 50 mg p.o. daily. 14. Zofran 4 mg ODT q.4 hours p.r.n. nausea and vomiting. 15. MiraLAX 17 g p.o. daily p.r.n. 16. Seroquel 200 mg p.o. daily. 17. Flomax 0.4 mg p.o. at bedtime. FOLLOWUP: Ms. Bajwa is being discharged to a [facility]. She is a DNR level 1. Dictated by EDDIE Degroot for Ricky Daley MD cc: Ricky Daley MD [facility]
[~2019-04-14 15:45] MED LIST: 1/2 NS 1,000 ML IV SCH; ATIVAN IM ONE; ATIVAN IM PRN; ATIVAN IV PRN; ATIVAN ONE; ATROPINE 1 % OPHTH SOLN SL PRN; AYR NASAL SPRAY NAS PRN; BASAGLAR SUBQ ONE; BASAGLAR SUBQ SCH; BENADRYL IM ONE; BENADRYL IM PRN; BENADRYL PO PRN; BLISTEX MEDICATED BERRY LIP BALM TOP PRN; CEREBYX 1,000 MG in NS 50 ML IV ONE; COZAAR PO SCH; D10W 1,000 ML IV SCH; D5 NS 1,000 ML IV ONE; D50W SYRINGE IV ONE; D50W SYRINGE IV PRN; D50W SYRINGE ONE; DIFLUCAN PO ONE; DILANTIN IV ONE; DOPAMINE 800 MG/D5W 800 MG/500 ML IV.SOLN IV SCH; DULCOLAX PO PRN; DUONEB (A & A) INH PRN; DUONEB (A & A) INH SCH; FLU VACCINE IM ONE; G.I. COCKTAIL PO ONE; GEODON IM ONE; GEODON IM PRN; GLUCAGON SUBQ ONE; GLUCOTROL PO SCH; HALDOL IV ONE; HUMALOG DOSE (PARKWAY) SUBQ ONE; HUMULIN N INSULIN (PARKWAY) SUBQ ONE; HUMULIN R (PARKWAY) SUBQ ONE; HUMULIN R (PARKWAY) SUBQ SCH; HUMULIN R DOSE (PARKWAY) SUBQ SCH; HYZAAR 50/12.5 MG PO SCH; INSTA-GLUCOSE ONE; INSTA-GLUCOSE PO ONE; INSTA-GLUCOSE PO STA; INSULIN PEN NEEDLES MISC PRN; INSULIN PEN NEEDLES ONE; INVOKANA PO SCH; KEPPRA 500 MG in NS 100 ML IV ONE; KEPPRA PO SCH; KLOR-CON PO ONE; LACTULOSE PO ONE; LANTUS INSULIN SUBQ ONE; LANTUS INSULIN SUBQ SCH; LASIX IV ONE; LASIX PO ONE; MAALOX PLUS LIQUID PO ONE; MACROBID PO SCH; MACRODANTIN PO SCH; MAXIPIME 1 GM in NS 50 ML IV SCH; MONISTAT-7 VAG CREAM VAG ONE; MOTRIN PO PRN; NORVASC PO ONE; NS 1,000 ML IV ONE; NS 250 ML IV ONE; NS 500 ML ONE; POTASSIUM CHLORIDE 20% LIQUID PO ONE; PRINIVIL PO SCH; RISPERDAL M-TAB PO ONE; ROCEPHIN 1 GM in NS 50 ML IV ONE; ROCEPHIN IM ONE; ROCEPHIN ONE; SEPTRA DS PO ONE; SEROQUEL PO ONE; SEROQUEL PO SCH; STERILE WATER INJ. INJ ONE; STERILE WATER INJ. ONE; SYNTHROID PO ONE; TOPROL XL PO ONE; VANCOMYCIN IV PER PHARMACY MISC SCH; VICTOZA SUBQ ONE; VICTOZA SUBQ SCH; VIMPAT PO SCH; XYLOCAINE-MPF 1% INJ ONE; XYLOCAINE-MPF 1% ONE; ZOFRAN IV ONE; ZOFRAN IV PRN; ZYVOX 600 MG/D5W 600 MG/300 ML IVPB IV SCH; ZYVOX PO SCH
--- NOTE | 2019-04-15 08:39 | DISCHARGE SUMMARY ---
ADMISSION DATE: 11/14/2017 DISCHARGE DATE: 04/14/2019 HOSPITAL COURSE: This is an abbreviated discharge summary given the next extreme length of her hospitalization. Ms. Bajwa was admitted to the hospital in November of 2017. She has had multiple issues throughout her hospitalization to include seizures. She has had very difficult to control blood sugars and in fact, blood sugars have to be allowed to be in the upper 200s and 300s as any tighter control she frequently drops into the 30s and 40s, which has also led to seizures. She became septic on 2 different occasions secondary to urinary source. Thankfully, her most recent urine culture, blood cultures were negative. Her hospital course was prolonged secondary to social neglect as well as DHR and the state becoming involved. Ms. Bajwa certainly has dementia, frequently agitated, frequently confused, although the last several weeks she has been very calm and seemingly more alert and oriented. cc: Ricky Daley MD
== END | DRG 689 ==
LOC: P.ED 11-14 12:24 → SUATTDRO 11-14 19:17 → P.MEDSURG 11-14 19:17 → P.ICU 01-29 22:25 → P.MEDSURG 01-30 17:49 → P.ICU 03-29 14:42 → P.MEDSURG 03-30 09:11 → P.ICU 04-21 21:40 → P.MEDSURG 04-22 13:47
PROVIDERS: ATTEND Family Medicine